=== PATIENT | female | born 1935 | race Caucasian/White ===

== ENCOUNTER → 2023-12-08 15:07 | Outpatient (REF) | payer OTHER, SELFPAY | LOC: MRI 3T 15:07 | PROVIDERS: ATTENDING PHYSICIAN Physician Assistant Surgical | DX: M47.816 Spondylosis without myelopathy or radiculopathy, lumbar region (principal); M47.817 Spondylosis without myelopathy or radiculopathy, lumbosacral region | CPT/HCPCS: 72148 ==

== ENCOUNTER → 2024-03-06 10:57 | Outpatient (REF) | payer OTHER, SELFPAY ==
--- NOTE | 2024-03-06 17:17 | EEG.RPT ---
Electroencephalogram Report
Recording
Date of EE03/06/24
Type of EEG: Routine
Length of EEG recordin minutes
Done with Video Recording: Yes
Patient Status: Outpatient
Recording Conditions: Awake and Drowsy
Hyperventilation Performed: No
Photic Stimulation Performed: Yes
Report
GREATER THAN 1 HOUR EEG REPORT
GREATER THAN 1 HOUR EEG INTERPRETATION:
Mildly abnormal EEG due to mild diffuse left temporal focal slowing of medium amplitude
CLINICAL CORRELATION:
This study was suggestive of mild breach artifact from the left temporal lobe in non-epileptiform form. No seizures were recorded.
Clinical correlation is advised.
METHODS:
A 21 channel digitized electroencephalogram (EEG) was performed at the bedside. The 10/20 international system of electrode placement was used with ECG and lateral/vertical eye movements recorded. Video was recorded. Persyst quantitative evaluation
system utilized.
QUALITY OF STUDY:
Good
ELECTROENCEPHALOGRAPHER IMPRESSION(S):
Background
Amplitude: Unremarkable
Anterior-Posterior Organization: Unremarkable
Maximum: Alpha
Asymmetry: None
Sleep
Drowsiness present
Photic Stimulation
Failed to activate the record
ECG
Normal sinus rhythm
Abnormal EEG Activity
Asymmetry with left temporal (T3) focal slowing of medium amplitude constantly
== END ==
LOC: EEG 10:57
PROVIDERS: ATTENDING PHYSICIAN Nurse Practitioner Adult Health; FAMILY PHYSICIAN Family Medicine
DX: G40.209 Localization-related (focal) (partial) symptomatic epilepsy and epileptic syndromes with complex partial seizures, not intractable, without status epilepticus (principal)
CPT/HCPCS: 95813

== ENCOUNTER 2024-05-14 01:48 | Inpatient (IN) | payer OTHER, SELFPAY ==
[2024-05-13 23:45] VITALS: BP 158/103
[2024-05-13 23:48] VITALS: BP 158/103
--- NOTE | 2024-05-13 23:50 | ED.GENMED ---
History of Present Illness
<Gautam Strauss Semaj, DO - Last Filed: 05/14/24 00:54>
General
Chief Complaint: Breathing Problem
Time Seen by Provider: 05/13/24 23:43
History of Present Illness
History of Present Illness:
HPI: The patient presents due to shortness of breath onset last week but acutely worsened over the past 3 to 4 hours. I spoke to EMS who indicates the patient had inspiratory and expiratory wheezing and had a room air sat of 85%. She has a history
of A-fib and was found to be in rapid A-fib with rates in the 130s to 150s prior to arrival. I reviewed the med list and she is not on anticoagulation. She states that she was placed on doxycycline 2 to 3 weeks ago for presumed lung infection.
EXAM:
GENERAL: Moderate respiratory distress on nonrebreather (reportedly was 85% on room air for EMS)
HEENT: Moist oral mucosa
CARDIOVASCULAR: No murmurs, tachycardic heart rate, irregular rhythm, No chest wall tenderness
PULMONARY: Moderate respiratory distress, breath sounds are decreased with wheeze
ABDOMEN: Soft with no peritoneal signs, no tenderness
NEUROLOGIC: Fair strength all extremities, no coordination deficits
PSYCHIATRIC: Appropriate mental status, normal insight and judgement
EXTREMITIES: Nontender, no edema, moves all extremities equally
SKIN: No rash, no lesions
TIME OF INITIAL ENCOUNTER: 11:45 PM
NUMBER AND COMPLEXITY OF PROBLEMS ADDRESSED AT THE ENCOUNTER
� Chronic conditions affecting care: High blood pressure, diabetes, former smoker
� Acute Exacerbation and/or Progression of Chronic Illness: This is an acute problem
� Differential Diagnosis includes: Reactive airway disease, viral syndrome, COPD, pneumonia, heart failure, dysrhythmia
AMOUNT AND/OR COMPLEXITY OF DATA TO BE REVIEWED AND ANALYZED
� I performed an independent evaluation of and my interpretation is:
EKG: A-fib 125, diffuse ST abnormality including ST depression in V4 V5 however this does not appear to be significantly changed in comparison to 09/28/2023
CT:
X-rays: Chest x-ray personally viewed, there may be some increased lung markings but not significant change from prior on 09/26/2023
Laboratory Studies: Hemoglobin slightly low but at baseline, white count normal at 10.2
Other:
� Review of other/old records: I reviewed records. The patient was admitted with acute metabolic encephalopathy with UTI 8 months ago. At that time she was also briefly hypoxic that was felt to be related to atelectasis. She
had an echo in 2021 that showed an EF.
� Clinical information was obtained by an independent historian: I spoke to EMS
� Prescriptions/Medications Considered but not given:
� Further testing considered but not performed:
RISK OF COMPLICATIONS AND/OR MORBIDITY OR MORTALITY OF PATIENT MANAGEMENT
� Social determinants of health affecting care: Resides at the [facility]
� Discussion with other providers: Dr. Recinos for admission
� Escalation of care including admission/observation vs risk of discharge considered: The patient was in moderate respiratory distress and was 85% on room air for EMS. She has been on a nonrebreather. She is in rapid A-fib.
She has somewhat of an ischemic looking EKG but not significantly changed from prior. Will place on heparin as she appears to be in rapid A-fib and is not currently anticoagulated and has ST depression on EKG. she was initially given a small fluid
bolus of 500 mL of saline as she was hypotensive upon arrival. However she later was found to have a BNP over 4400 and there does appear to be some increased vascular markings on today's chest x-ray compared to prior therefore she was then diuresed
with low-dose Lasix. I spoke to the daughter, Parvin Mendez, who indicates that we can call at any time. She tells me that she had an irregular heartbeat within the past week and she was to follow-up with a shopfitter, the
daughter was out of town and she has not seen a shopfitter yet. I asked the daughter about anticoagulation and she was under the impression that she should not be on anticoagulation while on Plavix.
Past History
<Gautam Cha, DO - Last Filed: 05/14/24 00:54>
Past History
ED Past Medical History: Cancer (breast, with radiation therapy), CVA (April 2021), HTN (labile), NIDDM, Seizures (Possible seizures, abnormal EEG), Psychiatric (major depression), Other (iron deficiency anemia, aortic stenosis, pulmonary
hypertension, seizure) and Other (hiatal hernia)
ED Past Surgical History: Appendectomy, Gynecological (hysterectomy) and Other (left-sided mastectomy 2017, right CEA)
Social History
Tobacco: Other (distant history)
Alcohol: None
Drug: None
Personal:
Living: with family
Employment: Retired
Family History
Family History: Other (reviewed and noncontributory)
Phy Exam
<Lawrence Castillo MD, Resident - Last Filed: 05/14/24 01:34>
Physical Exam
Physical Exam:
GEN: Patient in respiratory distress on nonrebreather mask (saturating at 85% on room air as reported by EMS)
HENT: NCAT, oral mucosa moist, no JVD, no cervical adenopathy.
Lungs: Bilateral inspiratory and expiratory wheezes
Cardiac: Tachycardic, irregular rhythm, S1, S2+, no peripheral edema. Radial pulses 2+ bilat
Abdomen: S, NT, ND, NABS, no masses or hepatosplenomegaly
Neuro: AO x 3, no focal deficits to BUE/BLE, normal sensation throughout
Skin: No rashes, petechiae. Normal color, no pallor or jaundice.
Psych: Calm, cooperative, proper hygiene
Scores
<Lawrence Castillo MD, Resident - Last Filed: 05/14/24 01:34>
Heart Failure Risk
Heart Failure Risk Score: Not Applicable
Course
<Gautam Cha, DO - Last Filed: 05/14/24 00:54>
Orders/Labs/Results
Orders:
Orders
05/13/24 23:44
Electrocardiogram (*1) Urgent
Reason for Study: Other
Other Reason for Exam: Respiratory Distress
Cardiac Monitoring- Treatment ONCE
EKG- Treatment ONCE
IV Insert/Care/Rem.- Treatment PRN
Ipratropium/Albuterol Sulfate [Duoneb] 3 ml INH R NOW ONE
MethylPREDNISolone PF [Solu-Medrol Pf] 125 mg IV NOW STA
O2 Therapy [RESP] Urgent
Titrate/Wean O2 to maintain O2 sat greater than (%): 93
Special Instructions: TO MAINTAIN CONTINUOUS O2 SATS >/= 93%
Pulse Ox/cont/shift [RESP] Urgent
Quantity: 1
Special Instructions: continuous pulse ox
05/13/24 23:45
Diltiazem 125 mg/125 ml Nss [Cardizem] 125 mg in 125 ml IV PER PROTOCOL
Initial dose in mg/hr, then titrate:: 5
Titrate to keep:: Heart rate 80-100 bpm
Titrate by mg/hr:: 5 mg/hr
Frequency of titrations (minutes):: 15
Maximum dose in mg/hr:: 15
05/13/24 23:49
Diltiazem HCl [Cardizem] 10 mg IV NOW STA
05/13/24 23:54
COVID-19 Antigen Urgent
Source: Nasal Swab
Complete Blood Count/With Diff Urgent
Comprehensive Metabolic Panel Urgent
Magnesium Urgent
NT-proBNP Urgent
Troponin I Urgent
05/14/24 00:00
CR Chest Portable - 1 View Urgent
Reason For Exam: respiratory distress
Reason Study Needs to be Portable: Patient Unstable
05/14/24 00:08
0.9% Sodium Chloride 500 ml [Nss] 500 ml IV BOLUS
05/14/24 00:20
Heparin 3,800 units IV NOW STA
05/14/24 00:[address] Non Medication Order As Directed
Physician Order: PTT 6 hours after initial start of Heparin infusion
05/14/24 00:27
PTT Urgent
Comment: Obtain baseline before beginning heparin infusion if not already collected
05/14/24 00:30
Heparin 66071 Units/250 ml 25,000 units in 250 ml IV PER PROTOCOL
Weight to be used for heparin protocol in kilograms (kg):: 62.8
Protocol:: Cardiac Tx/Acute Coronary
PTT Goal Range to be used:: PTT 73 to 111 seconds
Order type:: Initial
INITIAL Infusion Dose (UNITS/KG/hr) & then follow protocol:: 12 units/kg/hr
Infusion Dose in UNITS/hr & then follow protocol (UNITS/hr):: 750
INFUSION RATE in mL/hr & then follow protocol (mL/hr):: 7.5
PTT less than or equal to 64 seconds:: Increase rate by 200 units/hr (+ 2 mL/hr)
PTT 64.1 to 72.9 seconds:: Increase rate by 100 units/hr (+ 1 mL/hr)
PTT 73 to 111 seconds:: Target Range. No change in rate.
PTT 111.1 to 130.9 seconds:: Decrease rate by 100 units/hr (- 1 mL/hr)
PTT 131 to 199.9 seconds:: HOLD for 1 hr. Then decrease rate by 200 units/hr (- 2 mL/hr)
PTT greater than or equal to 200 seconds:: HOLD for 2 hrs & Notify Provider. Then decrease by 200 units/hr (-
2 mL/hr)
Lab follow-up:: Each change, PTT q6h until 2 consecutive are therapeutic. Then PTT
daily.
05/14/24 00:45
Furosemide [Lasix] 20 mg IV NOW STA
05/14/24 01:00
Flush (0.9% Sodium Chloride) [Flush (Nss)] See Dose Instructions IV PER PROTOCOL
05/14/24 01:26
Admit/Transfer Patient As Directed
Co-Sign Provider:
Level of Care: Inpatient admission
Assign to:: IMU- Intermediate Care
Physician / Group: htay
Diagnosis: acute hypoxic RI, acute CHF, vol overload, acute bronchitis
Reason for Hospitalization: acute hypoxic RI, acute CHF, vol overload, acute bronchitis
Expected length of stay greater than two midnights?: Yes
ELOS- Estimated Length of Stay in days: 3
I certify the patient meets the requirements for IP care: Yes
Abnormal Lab Results
05/13/24
23:54
RBC 3.82 L 10^6/uL
(4.20-5.40)
Hgb 11.5 L g/dL
(12.0-16.0)
Hct 33.7 L %
(37.0-47.0)
RDW 15.2 H %
(11.5-14.5)
MPV 10.5 H fL
(7.4-10.4)
Sodium 132 L mmol/L
(135-145)
Glucose 210 H mg/dl
(70-99)
AST 37 H U/L
(14-36)
Alkaline Phosphatase 134 H U/L
(38-126)
05/13/24 23:54
05/13/24 23:54
Vital Signs
Initial and Last Documented VS:
Initial Vital Signs
Pulse Resp BP Pulse Ox
138 19 158/103 99
05/13/24 23:45 05/13/24 23:45 05/13/24 23:45 05/13/24 23:45
Last Documented Vital Signs
Temp Pulse Resp BP Pulse Ox
97.6 F 140 23 123/81 96
05/14/24 00:06 05/14/24 01:24 05/14/24 01:00 05/14/24 01:24 05/14/24 01:00
<Lawrence Maynor Teresa Castillo MD, Resident - Last Filed: 05/14/24 01:34>
Orders/Labs/Results
Orders:
Orders
05/13/24 23:44
Electrocardiogram (*1) Urgent
Reason for Study: Other
Other Reason for Exam: Respiratory Distress
Cardiac Monitoring- Treatment ONCE
EKG- Treatment ONCE
IV Insert/Care/Rem.- Treatment PRN
Ipratropium/Albuterol Sulfate [Duoneb] 3 ml INH R NOW ONE
MethylPREDNISolone PF [Solu-Medrol Pf] 125 mg IV NOW STA
O2 Therapy [RESP] Urgent
Titrate/Wean O2 to maintain O2 sat greater than (%): 93
Special Instructions: TO MAINTAIN CONTINUOUS O2 SATS >/= 93%
Pulse Ox/cont/shift [RESP] Urgent
Quantity: 1
Special Instructions: continuous pulse ox
05/13/24 23:45
Diltiazem 125 mg/125 ml Nss [Cardizem] 125 mg in 125 ml IV PER PROTOCOL
Initial dose in mg/hr, then titrate:: 5
Titrate to keep:: Heart rate 80-100 bpm
Titrate by mg/hr:: 5 mg/hr
Frequency of titrations (minutes):: 15
Maximum dose in mg/hr:: 15
05/13/24 23:49
Diltiazem HCl [Cardizem] 10 mg IV NOW STA
05/13/24 23:54
COVID-19 Antigen Urgent
Source: Nasal Swab
Complete Blood Count/With Diff Urgent
Comprehensive Metabolic Panel Urgent
Magnesium Urgent
NT-proBNP Urgent
Troponin I Urgent
05/14/24 00:00
CR Chest Portable - 1 View Urgent
Reason For Exam: respiratory distress
Reason Study Needs to be Portable: Patient Unstable
05/14/24 00:08
0.9% Sodium Chloride 500 ml [Nss] 500 ml IV BOLUS
05/14/24 00:20
Heparin 3,800 units IV NOW STA
05/14/24 00:[address] Non Medication Order As Directed
Physician Order: PTT 6 hours after initial start of Heparin infusion
05/14/24 00:27
PTT Urgent
Comment: Obtain baseline before beginning heparin infusion if not already collected
05/14/24 00:30
Heparin 31049 Units/250 ml 25,000 units in 250 ml IV PER PROTOCOL
Weight to be used for heparin protocol in kilograms (kg):: 62.8
Protocol:: Cardiac Tx/Acute Coronary
PTT Goal Range to be used:: PTT 73 to 111 seconds
Order type:: Initial
INITIAL Infusion Dose (UNITS/KG/hr) & then follow protocol:: 12 units/kg/hr
Infusion Dose in UNITS/hr & then follow protocol (UNITS/hr):: 750
INFUSION RATE in mL/hr & then follow protocol (mL/hr):: 7.5
PTT less than or equal to 64 seconds:: Increase rate by 200 units/hr (+ 2 mL/hr)
PTT 64.1 to 72.9 seconds:: Increase rate by 100 units/hr (+ 1 mL/hr)
PTT 73 to 111 seconds:: Target Range. No change in rate.
PTT 111.1 to 130.9 seconds:: Decrease rate by 100 units/hr (- 1 mL/hr)
PTT 131 to 199.9 seconds:: HOLD for 1 hr. Then decrease rate by 200 units/hr (- 2 mL/hr)
PTT greater than or equal to 200 seconds:: HOLD for 2 hrs & Notify Provider. Then decrease by 200 units/hr (-
2 mL/hr)
Lab follow-up:: Each change, PTT q6h until 2 consecutive are therapeutic. Then PTT
daily.
05/14/24 00:45
Furosemide [Lasix] 20 mg IV NOW STA
05/14/24 01:00
Flush (0.9% Sodium Chloride) [Flush (Nss)] See Dose Instructions IV PER PROTOCOL
05/14/24 01:26
Admit/Transfer Patient As Directed
Co-Sign Provider:
Level of Care: Inpatient admission
Assign to:: IMU- Intermediate Care
Physician / Group: htay
Diagnosis: acute hypoxic RI, acute CHF, vol overload, acute bronchitis
Reason for Hospitalization: acute hypoxic RI, acute CHF, vol overload, acute bronchitis
Expected length of stay greater than two midnights?: Yes
ELOS- Estimated Length of Stay in days: 3
I certify the patient meets the requirements for IP care: Yes
Abnormal Lab Results
05/13/24
23:54
RBC 3.82 L 10^6/uL
(4.20-5.40)
Hgb 11.5 L g/dL
(12.0-16.0)
Hct 33.7 L %
(37.0-47.0)
RDW 15.2 H %
(11.5-14.5)
MPV 10.5 H fL
(7.4-10.4)
Sodium 132 L mmol/L
(135-145)
Glucose 210 H mg/dl
(70-99)
AST 37 H U/L
(14-36)
Alkaline Phosphatase 134 H U/L
(38-126)
05/13/24 23:54
05/13/24 23:54
Vital Signs
Initial and Last Documented VS:
Initial Vital Signs
Pulse Resp BP Pulse Ox
138 19 158/103 99
05/13/24 23:45 05/13/24 23:45 05/13/24 23:45 05/13/24 23:45
Last Documented Vital Signs
Temp Pulse Resp BP Pulse Ox
97.6 F 140 23 123/81 96
05/14/24 00:06 05/14/24 01:24 05/14/24 01:00 05/14/24 01:24 05/14/24 01:00
<Lawrence Castillo MD, Resident - Last Filed: 05/14/24 01:34>
MDM/Problems Addressed
Differential Diagnosis Includes:
Bronchitis versus acute exacerbation of COPD versus pneumonia , A-fib versus acute heart failure
MDM/Problems Addressed:
Patient started on IV fluids
Patient is started on DuoNebs, Solu-Medrol.
EKG showed evidence of A-fib, heart rate of 125
Started her on diltiazem, heparin.
Chest x-ray-no evidence of pneumonia.
CBC, CMP�hemoglobin at 11.5, mildly hyponatremic at 132, BG�210
Prior echo in 2021 showed an ejection fraction of 60 to 65%
proBNP�4430
Stat Lasix 20 mg.
<Gautam Cha, DO - Last Filed: 05/14/24 00:54>
*Critical Care Note
Total Time (30-74mins, 75-104mins- exclusive of procedures): 45min
comment:
The patient was hypoxic for EMS and was in moderate to severe respiratory distress upon arrival. He was hypotensive upon arrival and was in rapid atrial fibrillation. She was given a small fluid bolus initially and was also given diltiazem bolus
and drip. She was placed on heparin. Her vital signs were closely monitored.
ED Attending Note
<Gautam Cha DO - Last Filed: 05/14/24 00:54>
-
Portions of this chart may have been created with voice recognition software.� Occasional wrong word or��sound alike� substitutions may have occurred due to the inherent limitations of voice recognition software.
Discharge Plan
Departure
Patient Disposition: Admit
Date of Disposition: 05/14/24
Time of Disposition: 00:46
Presentation/result/management discussed w/ accepting MD/DO: Hospitalist
Discharge Problem:
Hypoxia
Prescriptions:
No Action
acetaminophen 325 MG tablet
650 mg PO Q4HPRN PRN (Reason: DOUGLAS, mild pain, or temp >100.4F) 0RF
sennosides [senna] 8.6 MG tablet
8.6 mg PO BID PRN (Reason: constipation)
Patient Comments:
Not working very well
pantoprazole 40 MG tablet,delayed release (DR/EC)
20 mg PO DAILY
magnesium oxide 500 MG tablet
500 mg PO BID
coenzyme Q10 [Co Q-10] 10 MG capsule
10 mg PO DAILY
cranberry 400 MG capsule
400 mg PO DAILY
PreserVision AREDS 1 CAP capsule
1 cap PO BID
docusate sodium 100 MG capsule
100 mg PO BIDPRN PRN (Reason: No BM > 24 hours) 0RF
turmeric 400 mg Capsule
400 mg PO DAILY
metformin 750 mg tablet extended release 24 hr
750 mg PO BID
ascorbic acid (vitamin C) [Vitamin C] 500 MG tablet
500 mg PO DAILY
ropinirole 0.5 mg tablet
0.5 mg PO QHS
levetiracetam 500 mg tablet
500 mg PO QPM
amlodipine 5 mg Tablet
5 mg PO DAILY
alprazolam 0.5 mg tablet
0.5 mg PO BIDPRN PRN (Reason: Anxiety)
melatonin 10 mg Tablet
10 mg PO HS
levetiracetam [Keppra] 500 mg tablet
250 mg PO Daily
Rx Instructions:
1/2 tab (250mg) in the Am and 1 tab (500mg) nightly
clopidogrel 75 MG tablet
75 mg PO DAILY
cefdinir 300 mg capsule
300 mg PO Q12H 5 Days Qty: 10 0RF
Referrals:
Nuzhat Zhu DO [Family Provider] -
Interventions
Interventions:
*Risk Screen - Suicide Last Done: 05/13/24 23:45
*General Assessment Last Done: 05/13/24 23:45
*Neglect/Abuse Screening Last Done: 05/13/24 23:45
ED- Fall Risk Assessment Last Done: 05/14/24 00:07
*ED COVID-19 Vaccine History Last Done: 05/13/24 23:45
ED- Cardiac Assessment Last Done: 05/14/24 00:07
ED- Pulmonary Assessment Last Done: 05/14/24 00:07
Discharge Date and Time
Print Language: KOREAN
[2024-05-14] VITALS (16 sets, daily range): BP systolic 95–140; BP diastolic 52–81; PULSE 81; O2SAT 95; BMI 21.1; BMI 20.5; BMI 20.3
[2024-05-14 00:03] LABS: % Basophils 0.6 % (0-2); % Eosinophils 2.7 % (0-6); % Immature Granulocytes 0.4 % (0-0.5); % Lymphocytes 30.2 % (20.5-51.1); % Monocytes 6.1 % (1.7-9.3); Absolute Basophils 0.1 10^3/uL (0-0.2); Absolute Eosinophils 0.3 10^3/uL (0-0.7); Absolute Lymphocytes 3.1 10^3/uL (1.2-3.4); Absolute Monocytes 0.6 10^3/uL (0.1-0.6); Absolute Neutrophils 6.1 10^3/uL (1.4-6.5); Hematocrit 33.7 % (37.0-47.0); Hemoglobin 11.5 g/dL (12.0-16.0); Mean Corp Hgb Conc. 34.1 g/dL (33.0-37.0); Mean Corpuscular Hgb 30.1 pg (27.0-31.0); Mean Corpuscular Volume 88.2 fL (81.0-99.0); Mean Platelet Volume 10.5 fL (7.4-10.4); Nucleated Red Blood Cells % 0 %; Platelet Count 245 10^3/uL (130-400); Red Blood Cell Count 3.82 10^6/uL (4.20-5.40); Red Cell Dist. Width 15.2 % (11.5-14.5); White Blood Cell Count 10.2 10^3/uL (4.8-10.8)
[2024-05-14 00:16] LABS: COVID-19 Antigen Negative (Negative)
[2024-05-14 00:17] LABS: ALT (SGPT) 12 U/L (0-35); AST (SGOT) 37 U/L (14-36); Albumin 4.1 g/dl (3.5-5.0); Alkaline Phosphatase 134 U/L (38-126); Blood Urea Nitrogen 15 mg/dl (7-17); Calcium 9.2 mg/dl (8.4-10.2); Carbon Dioxide 22 mmol/L (22-30); Chloride 100 mmol/L (98-107); Estimated Creatinine Clearance 65 ml/min; Glucose 210 mg/dl (70-99); Magnesium 1.6 mg/dl (1.6-2.3); Potassium 4.4 mmol/L (3.5-5.1); Sodium 132 mmol/L (135-145); Total Bilirubin 0.5 mg/dl (0.2-1.3); Total Protein 6.8 g/dl (6.3-8.2); eGFR > 60.00
[2024-05-14] MEDS: DUONEB 3 ML INH ×5 (00:18→19:57)
[2024-05-14] MEDS: SOLU-MEDROL PF 125 MG IV (00:18)
[2024-05-14] MEDS: CARDIZEM 10 MG IV (00:19)
[2024-05-14] MEDS: NSS 500 IV (00:20)
[2024-05-14 00:26] LABS: NT-proBNP 4430 pg/ml; Troponin I < 0.012 ng/ml
[2024-05-14] MEDS: HEPARIN 3800 UNITS IV (00:37)
[2024-05-14 00:48] LABS: APTT 28.3 Sec (23.4-35.0)
--- NOTE | 2024-05-14 01:20 | HPS.HSE ---
Family Physician
-
Family Physician: Nuzhat Zhu
Chief Complaint
-
SoB and hypoxia, fast AF
History of Present Illness
88F Res of [facility] , [facility] , HX chr hypotension on PRN Midodrine, mild , HX XRT for breast CA, HX Sz diosrderfor evaulation of SoB and Hypoxia. Per EMS POx as low as 85%.
SoB
- acute onset since last week
- EMS noted both insp/ exp wheeze
- associated Hypoxia as low as 85 5 before NRM placement
- on PO Doxy for lung infection
EMS also noted fast AF with VR 130s- 150s
- not on AC
Medical History
Past Medical History
Past Medical History: Reports Other
Additional Past Medical History:
essential hypertension, irv-juaexox-xonidcews diabetes mellitus, history of breast cancers with radiation therapy, hiatal hernia, right carotid stenosis post stent placement, GERD, history of seizures, hyperlipidemia, history of CVA, neuropathy,
restless leg syndrome, hysterectomy
Past Surgical History: Reports Other
Social History
Tobacco: Non-smoker
Alcohol: None
Drug: None
Living: With Family
Family History
Family History: Not pertinent
Allergies / Home Medications
Allergies reflects when Allergies were last updated in [facility].
Home Medications with original date entered in [facility]
Allergy/Medication List:
Allergies
Allergy/AdvReac Type Severity Reaction Status Date / Time
codeine Allergy Nausea Verified 09/26/23 05:26
nitrofurantoin Allergy Hives Verified 09/26/23 05:26
[From Macrobid]
Home Medications
acetaminophen 325 mg tablet 650 mg PO Q4HPRN PRN DOUGLAS, mild pain, or temp >100.4F 07/08/21
clopidogrel 75 mg tablet 75 mg PO DAILY 07/08/21
alprazolam 0.25 mg tablet 0.25 mg PO HSPRN PRN sleep/leg spasm 02/09/22
cholecalciferol (vitamin D3) 25 mcg (1,000 unit) tablet 2,000 units PO DAILY Supplement 02/09/22
coenzyme Q10 10 mg capsule (Co Q-10) 10 mg PO DAILY Supplement 02/09/22
cranberry 400 mg capsule 400 mg PO DAILY Supplement 02/09/22
magnesium oxide 500 mg tablet 250 mg PO BID Supplement 02/09/22
melatonin 5 mg tablet 10 mg PO HS Sleep 02/09/22
pantoprazole 40 mg tablet,delayed release 20 mg PO DAILY Gastrointestinal issue 02/09/22
sennosides 8.6 mg tablet (senna) 8.6 mg PO BID PRN constipation 02/09/22
vitamins A,C,J-kjpf-brzcrt 4,296 mcg-226 mg-90 mg capsule (PreserVision AREDS) 1 cap PO BID Supplement 02/09/22
docusate sodium 100 mg capsule 100 mg PO BIDPRN PRN No BM > 24 hours 02/10/22
turmeric 400 mg capsule 400 mg PO TID Herbal supplement 04/16/22
levetiracetam 500 mg tablet (Keppra) 500 mg PO BID Seizures 30 days #60 tabs 04/17/22
midodrine 5 mg tablet 5 mg PO DAILY PRN low bp in the morning #0 tabs 04/17/22
metformin 750 mg tablet,extended release 24 hr 750 mg PO BID Diabetes 04/03/23
ascorbic acid (vitamin C) 500 mg tablet (Vitamin C) 500 mg PO DAILY Supplement 04/04/23
amoxicillin 875 mg-potassium clavulanate 125 mg tablet 1 tab PO Q12 #10 tabs 04/05/23
ropinirole 0.5 mg tablet 0.5 mg PO DAILY Mental Health/Anxiety 09/26/23
sulfamethoxazole 800 mg-trimethoprim 160 mg tablet 1 tab 09/26/23
Review of Systems
-
Constitutional: Reports No Symptoms
EENT: Reports No Symptoms
Respiratory: Reports See HPI and Trouble Breathing
Cardiac: Reports No Symptoms
Abdomen/GI: Reports No Symptoms
: Reports No Symptoms
Musculoskeletal: Reports No Symptoms
Skin: Reports No Symptoms
Neurological: Reports No Symptoms
Endocrine: Reports No Symptoms
Hematologic/Lymphatic: Reports No Symptoms
Psych: Reports No Symptoms
Physical Exam
Vital Signs
Vital Signs
Temp Pulse Resp BP Pulse Ox
97.6 F 124 23 123/81 96
05/14/24 00:06 05/14/24 01:00 05/14/24 01:00 05/14/24 01:00 05/14/24 01:00
Physical Exam
General: Conversant; No Well Nourished (thin , BMI 21)
HEENT: Other (hard of hearing witoum hearing AID )
Respiratory: Wheezes (both lungs ) and Rhonchi
Cardiac: S1/S2, Irregular Rhythm, Tachycardia and Murmur (lous SM at LUSB )
GI: Soft, Non Tender, Non Distended and Normal Bowel Sounds
Musculoskeletal: No Edema
Skin: Warm and Dry
Neuro: AO x 3
Psych: Anxious
Laboratory Results
-
05/13/24 23:54
05/13/24 23:54
Laboratory Results
APTT 28.3 Sec (23.4-35.0) 05/14/24 00:27
Total Bilirubin 0.5 mg/dl (0.2-1.3) 05/13/24 23:54
AST 37 U/L (14-36) H 05/13/24 23:54
ALT 12 U/L (0-35) 05/13/24 23:54
Alkaline Phosphatase 134 U/L (38-126) H 05/13/24 23:54
Troponin I < 0.012 ng/ml 05/13/24 23:54
Data Reviewed
-
Diagnostic Radiology: Report Reviewed by me
Medical Tests (Nuc Med, Echo, EKG etc): Report Reviewed by me
Lab Data: Labs Reviewed by me
Old Records: Reviewed
Impression/Plan
-
Reviewed VS: HR 120 - 140 Hypotensive 102/60 POx 99 on NRM
Wt 62.9 kg ( 05/14/24) - was 59.6 kg ( 09/26/23) gained 3.3 kg over 8 months ?
Data
Hgb 11.5
Na 132
BG 210
AST 37
AKP 134
NEG TPNI
pro BNP 4430
NEG Covid
My review on CXR; mild CHF ?
04/23/22 TTE
LVEF 60-65%
Mild aortic stenosis, peak/mean gradient 28/15 mmHg, KAYLEIGH 1.5 cm2
Normal right heart with mild pul hypertension, 36 mmHg systolic
Small PFO
Last hospitalist admission: 09/26/24 - 09/28/23 DX: TME, UTI
ASSESSMENT & PLAN
Pending Rx reconciliation
Acute hypoxic RI requiring NRM O2 support
DDX: acute asthmatic bronchitis , Prox fast AF or multifactorial plus or minus acute HF
- Gained 3.3 kg over last 8 months ?? : clinically she does not look volume overload
- elevated proBNP
- repeat wt on the floor
- s/p IV Lasix 20 and cont IV Lasix 20 daily till seen by Card in AM
- cont IV Decadron
- cont. Nebs qid and PRN
- cont. O2 to keep POx > 94
- Pul consult
Fast Prx AF
- cont Diltiazem gtt
- agree with Heparin gtt
- cont Midodrine PRN
- DCA card consult
Known Mild with peak/mean gradient 28/15 mmHg, KAYLEIGH 1.5 cm2
HX small PFO
HX mild PHT
last ECHO 04/23/22
- ECHO in AM
T2DM
- held Metformin due to acute HF
- add ISS low
HX CVA
HX seizure disorder
Neuropathy
- on Levitra on list : Pending Rx reconciliation
Known HX - Pending Rx reconciliation
HX chronic marginal hyponatremia
Chr midodrine PRN dependent intermittent hypotension: held Amlodipine
HX essential HTN
HX breast cancers with radiation therapy/left mastectomy
HX right carotid stenosis post stent placement
Hyperlipidemia
restless leg syndrome
DVT Px: Heparin gtt
Code:
IMU
[2024-05-14] MEDS: LASIX 20 MG IV ×2 (01:24→08:52)
[2024-05-14] MEDS: CARDIZEM 125 IV ×2 (01:27→09:01)
[2024-05-14] MEDS: HEPARIN 25000 UNITS/250 ML IV (01:44)
--- NOTE | 2024-05-14 03:31 | PTCARENOTE ---
Pt received to IMU from ED. AAOx3. Drowsy. Very weak. [place]. Denies pain or discomfort. VSS. Afebrile. Afib/SR/ST/PVC on CM. POX 94% on 2L NC. Coarse/wheeze anteriorly. Diminished throughout. [place]. Heparin gtt infusing at 7.5mls/hr and Cardizem gtt
infusing at 15ml/hr both initiated in ED. Next PTT at 0745. No CHF packet on floor to give pt - will pass on to dayshift RN. Esteves placed for comfort. Last BM 2 days ago. Pt states she has been at [facility] temporarily till daughter
Parvin comes back from vacation - daughter aware pt in hospital and we are to call her if there are any issues. Skin intact. Rest of assessment as documented. Pt oriented to room and surroundings. Call bartlett within reach. Will continue to monitor.
[2024-05-14 05:17] LABS: AST (SGOT) 38 U/L (14-36); Albumin 4.1 g/dl (3.5-5.0); Alkaline Phosphatase 129 U/L (38-126); Blood Urea Nitrogen 15 mg/dl (7-17); Calcium 8.9 mg/dl (8.4-10.2); Carbon Dioxide 18 mmol/L (22-30); Chloride 98 mmol/L (98-107); Estimated Creatinine Clearance 63 ml/min; Glucose 282 mg/dl (70-99); Sodium 131 mmol/L (135-145); Total Bilirubin 0.5 mg/dl (0.2-1.3); Total Protein 6.5 g/dl (6.3-8.2); eGFR > 60.00
[2024-05-14 05:27] LABS: ALT (SGPT) < 30 U/L (0-35)
[2024-05-14 05:39] LABS: TSH Reflex To Free T4 1.17 uIU/ml (0.47-4.68)
[2024-05-14] MEDS: TYLENOL 650 MG PO (05:46)
[2024-05-14 08:04] LABS: Glucose - Point of Care 266 mg/dl (70-99)
[2024-05-14] MEDS: DECADRON 4 MG IV (08:51)
[2024-05-14] MEDS: NOVOLOG FLEXPEN-LOW RESISTANCE 3 UNITS SC (08:53)
[2024-05-14 09:05] LABS: APTT 60.4 Sec (23.4-35.0)
[2024-05-14] MEDS: NOVOLIN N vial 0.1 UNITS SC (09:53)
--- NOTE | 2024-05-14 09:59 | CON.PUL ---
Consultation
Consultation Request
Date/Time Consultation Requested: 05/14/24
Date/Time Consultation Performed: 05/14/24
Performing Provider: Linda
Reason for Consultation: SOB
Medical History
-
History of Present Illness:
Patient is an 88-year-old female with previous history of hypertension, diabetes, history of CVA, history of breast cancer, GERD presenting from [facility] via EMS for evaluation of shortness of breath and hypoxemia. O2 con was reportedly
85% on room air. She was noted to have inspiratory and expiratory wheezing on exam and was in A-fib with RVR 130s to 150s as well. Admitted to 05/14/24. No prior known history of lung disease, nonsmoker. CXR showing increased vascular markings
suggesting heart failure superimposed on possible underlying chronic lung disease.
Past Medical History
Past Medical History: Other (see list below)
Social History
Tobacco: Non-smoker
Alcohol: None
Drug: None
Family History
Family History: Reviewed & Not Pertinent
Allergies / Home Medications
Allergies
Allergy/AdvReac Type Severity Reaction Status Date / Time
codeine Allergy Nausea Verified 05/14/24 00:42
morphine Allergy Unknown Verified 05/14/24 00:42
nitrofurantoin Allergy Hives Verified 05/14/24 00:42
[From Macrobid]
Home Medications
�Medication �Instructions �Recorded �Confirmed �Last Taken �Type
acetaminophen 325 mg tablet 650 mg (2 x 325 mg) PO Q4HPRN PRN 07/08/21 09/26/23 04/15/22 Rx
DOUGLAS, mild pain, or temp >100.4F
coenzyme Q10 10 mg capsule (Co 10 mg PO DAILY Supplement 02/09/22 09/26/23 Unknown History
Q-10)
cranberry 400 mg capsule 400 mg PO DAILY Supplement 02/09/22 09/26/23 Unknown History
magnesium oxide 500 mg PO BID Supplement 02/09/22 09/26/23 Unknown History
pantoprazole 40 mg tablet,delayed 20 mg PO DAILY Gastrointestinal 02/09/22 09/26/23 04/16/22 History
release issue
sennosides 8.6 mg tablet (senna) 8.6 mg PO BID PRN constipation 02/09/22 09/26/23 Unknown History
vitamins A,C,P-uamb-fbjtep 4,296 1 cap PO BID Supplement 02/09/22 09/26/23 Unknown History
mcg-226 mg-90 mg capsule
(PreserVision AREDS)
docusate sodium 100 mg capsule 100 mg PO BIDPRN PRN No BM > 24 02/10/22 09/26/23 Unknown Rx
hours
turmeric 400 mg capsule 400 mg PO DAILY Herbal supplement 04/16/22 09/26/23 Unknown History
metformin 750 mg tablet,extended 750 mg PO BID Diabetes 04/03/23 09/26/23 Unknown History
release 24 hr
ascorbic acid (vitamin C) 500 mg 500 mg PO DAILY Supplement 04/04/23 09/26/23 Unknown History
tablet (Vitamin C)
alprazolam 0.5 mg tablet 0.5 mg PO BIDPRN PRN Anxiety 09/26/23 09/26/23 Unknown History
amlodipine 5 mg tablet 5 mg PO DAILY Blood Pressure 09/26/23 09/26/23 09/25/23 History
clopidogrel 75 mg tablet 75 mg PO DAILY Blood Clot 09/26/23 09/26/23 Unknown History
Prevention/Tx
levetiracetam 500 mg tablet 500 mg PO QPM Seizures 09/26/23 09/26/23 09/25/23 History
levetiracetam 500 mg tablet 250 mg PO Daily Seizures 09/26/23 09/26/23 09/25/23 History
(Keppra)
melatonin 10 mg tablet 10 mg PO HS Sleep 09/26/23 09/26/23 09/25/23 History
ropinirole 0.5 mg tablet 0.5 mg PO QHS Restless legs 09/26/23 09/26/23 Unknown History
cefdinir 300 mg capsule 300 mg PO Q12H 5 days #10 caps 09/28/23 Unknown Rx
Review of Systems
-
History Source: Patient
All other systems: Negative unless noted
Vitals / Labs / Diagnostic Testing
Vital Signs
Temp Pulse Resp BP Pulse Ox
97.6 F 92 19 140/67 95
05/14/24 07:15 05/14/24 08:00 05/14/24 08:00 05/14/24 08:00 05/14/24 08:00
Lab Data
05/13/24 23:54
05/14/24 04:32
Laboratory Results
05/14/24 05/14/24
00:27 08:46
APTT 28.3 60.4 H
Diagnostic Testing:
Physical Exam
-
HEENT: Normocephalic, Anicteric and Moist Mucous Membranes
Cardiovascular: S1/S2 and Regular Rhythm
Respiratory: Rales and Non-Labored Respirations
GI: Soft, Non Distended and Non Tender
Neurology: Awake, Alert, Oriented, AO x 3 and No Motor Deficits
Skin: Warm, Dry and Good Color
General: Comfortable and Other (NAD)
Assessment
-
Patient is an 88-year-old female with previous history of hypertension, diabetes, history of CVA, history of breast cancer, GERD presenting from [facility] via EMS for evaluation of shortness of breath and hypoxemia. O2 con was reportedly
85% on room air. She was noted to have inspiratory and expiratory wheezing on exam and was in A-fib with RVR 130s to 150s as well. Admitted to 05/14/24. CXR showing increased vascular markings suggesting heart failure superimposed on possible
underlying chronic lung disease. We are asked for eval.
Acute hypoxic respiratory failure, new onset
Acute CHF exacerbation
Afib with RVR
Wheezing/SOB
Possible underlying chronic ILD
Hyperglycemia
Hyponatremia
Conditions present prior to admission
HTN
NIDDM
Breast Ca with Radiation Therapy s/p Left Mastectomy
GERD/Hiatal Hernia
Carotid stenosis, right s/p stent
History of seizures
Hypercholesterolemia
History of stroke 2020
RLS
UTIs
Hysterectomy
History of bowel resection
Back surgery
Iron Deficiency
Congenital malformation of esophagus
Postmenopausal atrophic vaginitis
Gait difficulty
Dysphagia
Former smoker
Plan
Hypoxemia noted on arrival, O2 con 85%
Now on 5L NC, satting 97%--wean as tolerated
No known history of home O2 use
Home O2 evaluation eventually
Prior history of lung disease is not noted --
No prior known history of lung disease, nonsmoker. Trivial use socially in her youth for a total of 5 years
COPD history in her father who was a smoker
Denies exposure history
Suspect patient has CHF superimposed on possible background of chronic lung disease
CXR/CT obtained indicating increased vascular markings over chronic changes
Other imaging reviewed--no prior CT chest to compare, but other CXRs showing possible chronic changes
Would obtain dedicated chest CT when improved from her CHF treatment for clearer picture
She is placed on IV steroids, which I think can be stopped
Not wheezing, has crackles on exam
Prior ECHO in 2021 results are reviewed indicating small LV with moderate LVH, normal function, mild
Repeat study
Cards eval
Placed on IV diuresis
ProBNP elevated on admission
New onset Afib management as well
Will need outpatient pulmonary evaluation in our office for PFTs and 6MWT
Reviewed with patient
We will follow
Diagnostic Data
Chest X-Ray: 05/14/24- Suspect diffuse interstitial pneumonitis and component of pulmonary vascular congestion. Cannot rule out superimposed left basilar pneumonia and/or underlying chronic interstitial changes.
09/26/23- No acute disease of the chest. Large hiatal hernia. Enlarged.
CT Scan:
Echo: 04/23/22- 1. Small left ventricle with moderate left ventricular hypertrophy and preserved systolic function, EF 60-65%
2. Thickened mitral leaflets, mitral annular calcification, trace mitral regurgitation, and left atrial dilatation
3. Mild aortic stenosis, peak/mean gradient 28/15 mmHg, aortic valve area 1.5 cm2
4. Normal right heart with mild pulm hypertension, 36 mmHg systolic
5. Small patent foramen ovale
PFT's:
Reports and relevant images were personally reviewed.
Total time spent on this consultation __75__ includes review of history, physical exam, medications, laboratory data, personal review of imaging, extensive review of outpatient records, discussion with care team and respiratory therapy.
--- NOTE | 2024-05-14 10:20 | CM ---
Patient seen bedside.
IA completed.
Patient came to hospital via EMS from the [facility].
Spoke with Ravi from the [facility] he stated she is [facility], gives herself medications, ambulates and can dress herself with stand by assist for shower. However they would like report and fax on d/c.
Per patient she does not use assistive devices.
She is a the [facility], her daughter is away.
The plan is to return to the [facility] until 05/29/24, then back home with daughter.
PCP: Dr Zhu
Pharmacy: [facility]
Plan[facility].
Family may be able to transport. [facility] does not transport.
--- NOTE | 2024-05-14 10:27 | CON.CAR ---
Consultation
Consultation Request
Date/Time Consultation Requested: May 14, 2024
Date/Time Consultation Performed: May 14, 2024
Requesting Provider: Hospitalist
Performing Provider: Dr. Andreas Colón
Reason for Consultation: Newly diagnosed atrial fibrillation with rapid ventricular rates, symptomat
Medical History
-
Chief Complaint: Shortness of breath
History of Present Illness:
Primary care physician: Dr. Danyelle Gold
Primary obstetrical tech: Dr. Deana Marie
[age]-year-old woman living at [facility] who presented to the emergency department with acute worsening of baseline shortness of breath over the preceding 3 to 4 hours. Emergency services noted desaturation of 85%. Acutely she is found to
be in atrial fibrillation with rapid ventricular rate of 130s to 150s. Atrial fibrillation appears to be a newly documented diagnosis. Additional medical history is that she was placed on doxycycline approximately 2 weeks ago for a presumed
pulmonary infection.
On presentation she is found to be hyponatremic with sodium of 132, BUN and creatinine 15 and 0.6. proBNP is elevated at 4430 and troponin I is undetectable.
She was administered 20 mg of Lasix intravenously in the emergency department.
Past medical history includes
History of multiple ischemic strokes which have been felt likely to represent small vessel disease and atherosclerosis. 3 weeks of cardiac monitoring May 2021 failed to demonstrate atrial fibrillation
Autonomic dysfunction/hypotension/orthostasis treated with midodrine as needed
Patient has not been compliant with abdominal binder, compressions for known orthostatic hypotension and has not taken midodrine consistently due to hypertension
Type 2 diabetes with diabetic neuropathy
History of seizure disorder
History of mild aortic stenosis
History of breast cancer having undergone XRT in the past
Recent cardiovascular testing:
-Echocardiogram April 15, 2022 finds small left ventricle with moderate left ventricular hypertrophy and ejection fraction of 60 to 65%. There is mild aortic stenosis with peak and mean gradients of 28 and 15 mmHg and calculated aortic valve area
of 1.5 cm�.
Social History
Tobacco: Non-Smoker
Alcohol: None
Drug: None
Personal:
Living: Assisted Living ([facility])
Employment: Retired
Family History
Family History: Reviewed & Not Pertinent
Allergies / Home Medications
Allergy/AdvReac Type Severity Reaction Status Date / Time
codeine Allergy Nausea Verified 05/14/24 00:42
morphine Allergy Unknown Verified 05/14/24 00:42
nitrofurantoin Allergy Hives Verified 05/14/24 00:42
[From Macrobid]
�Medication �Instructions �Recorded �Confirmed �Type
acetaminophen 325 mg tablet 650 mg (2 x 325 mg) PO Q4HPRN PRN 07/08/21 09/26/23 Rx
DOUGLAS, mild pain, or temp >100.4F
coenzyme Q10 10 mg capsule (Co 10 mg PO DAILY Supplement 02/09/22 09/26/23 History
Q-10)
cranberry 400 mg capsule 400 mg PO DAILY Supplement 02/09/22 09/26/23 History
magnesium oxide 500 mg PO BID Supplement 02/09/22 09/26/23 History
pantoprazole 40 mg tablet,delayed 20 mg PO DAILY Gastrointestinal 02/09/22 09/26/23 History
release issue
sennosides 8.6 mg tablet (senna) 8.6 mg PO BID PRN constipation 02/09/22 09/26/23 History
vitamins A,C,V-lchf-dyimqn 4,296 1 cap PO BID Supplement 02/09/22 09/26/23 History
mcg-226 mg-90 mg capsule
(PreserVision AREDS)
docusate sodium 100 mg capsule 100 mg PO BIDPRN PRN No BM > 24 02/10/22 09/26/23 Rx
hours
turmeric 400 mg capsule 400 mg PO DAILY Herbal supplement 04/16/22 09/26/23 History
metformin 750 mg tablet,extended 750 mg PO BID Diabetes 04/03/23 09/26/23 History
release 24 hr
ascorbic acid (vitamin C) 500 mg 500 mg PO DAILY Supplement 04/04/23 09/26/23 History
tablet (Vitamin C)
alprazolam 0.5 mg tablet 0.5 mg PO BIDPRN PRN Anxiety 09/26/23 09/26/23 History
amlodipine 5 mg tablet 5 mg PO DAILY Blood Pressure 09/26/23 09/26/23 History
clopidogrel 75 mg tablet 75 mg PO DAILY Blood Clot 09/26/23 09/26/23 History
Prevention/Tx
levetiracetam 500 mg tablet 500 mg PO QPM Seizures 09/26/23 09/26/23 History
levetiracetam 500 mg tablet 250 mg PO Daily Seizures 09/26/23 09/26/23 History
(Keppra)
melatonin 10 mg tablet 10 mg PO HS Sleep 09/26/23 09/26/23 History
ropinirole 0.5 mg tablet 0.5 mg PO QHS Restless legs 09/26/23 09/26/23 History
cefdinir 300 mg capsule 300 mg PO Q12H 5 days #10 caps 09/28/23 Rx
Review of Systems
-
History Source: Patient
All other systems: Negative unless noted
Constitutional: Fatigue
EENT: No Symptoms
Respiratory: Trouble Breathing
Cardiac: Other (Palpitations, shortness of breath and dyspnea on exertion. No chest pain)
Abdomen/GI: No Symptoms
: No Symptoms
Musculoskeletal: No Symptoms
Skin: No Symptoms
Neurological: No Symptoms
Hematologic/Lymphatic: No Symptoms
Physical Exam
Vital Signs
Temp Pulse Resp BP Pulse Ox
97.6 F 92 19 140/67 95
05/14/24 07:15 05/14/24 08:00 05/14/24 08:00 05/14/24 08:00 05/14/24 08:00
Lab Results
05/13/24 23:54
05/14/24 04:32
Troponin I < 0.012 ng/ml 05/13/24 23:54
Sar-G-Tfumyytmcye Pept 4430 pg/ml 05/13/24 23:54
Physical Exam
General: Well Developed, Well Nourished, No Apparent Distress and Comfortable
HEENT: Normocephalic, Anicteric and Moist Mucous Membranes
Respiratory: Other (Poor inspiratory effort but otherwise lungs are clear with no wheezes rales or rhonchi bilaterally)
Cardiac: S1/S2 and Regular Rhythm
Breast: Deferred by me
GI: Soft, Non Tender, Non Distended and Normal Bowel Sounds
Rectal: Deferred by Provider
Musculoskeletal: No Clubbing, No Cyanosis and Edema (There is +1 pretibial edema bilaterally)
Skin: Warm and Dry
Neuro: Awake, Alert and Oriented
Psych: Calm
Impression / Plan
-
Assessment:
Newly diagnosed atrial fibrillation and now with rapid ventricular rates
Acute decompensated congestive heart failure likely exacerbated by atrial fibrillation and rapid ventricular rates. Probably HFpEF based on echocardiogram from 2 years ago
History of multiple ischemic strokes which have been felt likely to represent small vessel disease and atherosclerosis. 3 weeks of cardiac monitoring May 2021 failed to demonstrate atrial fibrillation
Autonomic dysfunction/hypotension/orthostasis treated with midodrine as needed
Patient has not been compliant with abdominal binder, compressions for known orthostatic hypotension and has not taken midodrine consistently due to hypertension
Type 2 diabetes with diabetic neuropathy
History of seizure disorder
History of mild aortic stenosis
History of breast cancer having undergone XRT in the past
Recent cardiovascular testing:
-Echocardiogram April 15, 2022 finds small left ventricle with moderate left ventricular hypertrophy and ejection fraction of 60 to 65%. There is mild aortic stenosis with peak and mean gradients of 28 and 15 mmHg and calculated aortic valve area
of 1.5 cm�.
Recommendations:
She is back to sinus rhythm. She definitely decompensated with symptomatic congestive heart failure with development of atrial fibrillation and rapid rates.
-Rhythm control strategy with amiodarone 200 mg twice daily for 30 days then 200 mg daily
-Will initiate oral anticoagulation. Given her age and borderline weight (expect some further weight loss with diuresis) have started Eliquis at 2.5 mg twice daily
-Check echocardiogram to assess both LV function and I am concerned for possible worsening aortic stenosis
-Continue IV Lasix today and reassess need tomorrow
Discussed in detail with patient she expresses understanding and agrees with our evaluation and management.
Total time spent today was 75 minutes in preparing to see the patient, seeing the patient and coordination of care. This included review of recent laboratory evaluations, testing, imaging studies, hospital records, as well as personally interviewing
and examining the patient, which included discussion of their tests, review/ordering medications and also treatment planning as well as counseling.
Data Reviewed
-
EKG: Tracing Personally Visualized and interpreted and Discussed with Patient
Radiology: Image Personally Visualized and interpreted and Discussed with Patient
Medical Tests (Nuc Med, Echo etc): Report Reviewed by me
Labs: Labs Reviewed by me and Discussed with Patient
Old Records: Reviewed
[2024-05-14] MEDS: VIBRAMYCIN 100 MG PO ×2 (11:17→20:44)
[2024-05-14 12:45] LABS: Glucose - Point of Care 413 mg/dl (70-99)
--- NOTE | 2024-05-14 13:29 | W.PN.HOSP.TC ---
Addendum entered and electronically signed by Park Joyner MD 05/14/24 14:07:
Patient wants to be DNR-changed.
Speech evaluation noted-video swallow ordered
Original Note:
Today's Communication/Plan
-
Steroid stopped
Eliquis and amiodarone started
Okay to transfer to telemetry
PT OT
Assessment / Plan
Assessment / Plan
88-year-old female with shortness of breath
Chest x-ray reviewed by me-pulmonary edema questionable pneumonia left and interstitial changes
CVS: S1-S2 normal, SR now
Chest: Bilateral rales
Abdomen: Soft, NT / Bowel sounds present
Extremities: No edema, normal pulses
TOBACCO CHECKOUT CLERK: Non focal exam
# Acute hypoxic respiratory failure due below mentioned reasons
Was on 5 L of oxygen on admission
Weaned down to 2 L this morning
# Acute heart failure likely secondary to rapid rates from A-fib
Likely heart failure with preserved ejection fraction
Reportedly gained 3.3 kg
Elevated proBNP 4430
Continue IV Lasix
Check echo
Cardiology evaluation
# Acute asthmatic bronchitis
IV Decadron, nebulizer treatments
Oxygen supplementation
Add antibiotics with yellow sputum
Speech evaluation
Add Doxy
Steroids stopped by Pulm
Pulmonary evaluation
# New diagnosis of atrial fibrillation with rapid rate
Continue Cardizem drip
Eliquis and amiodarone started by cardiology
Back in sinus rhythm
Check echo
# Hyponatremia-likely secondary to volume overload
# Aortic stenosis/trace MR/history of small PFO/pulmonary hypertension
Check echo
# Mild elevation in AST and alk [id number] with diuresis
# Labile hypertension-Watch BP. Hold other meds
# Type 2 diabetes
Accu-Cheks and sliding scale coverage
Metformin at home. Dosage unknown. With steroids I will begin thousand twice daily
# History of CVA-left temporal lobe/left centrum [id number] Plavix. May be able to be stopped now that she is on Eliquis.
# Seizure disorder- Taken off of Keppra 3 months ago per pt
# History of breast cancer with left lumpectomy and radiation with recurrence and mastectomy .
# History of right carotid stenosis with stent
# Restless leg syndrome-on Requip
# GERD/hiatal hernia-PPI
# Diverticulosis
# Anxiety disorder-continue as needed Xanax
# History of L4-5 laminectomy/arthritis/osteopenia
# DVT prophylaxis- Eliquis
# CODE STATUS- Full CODE
Discussed with the patient's daughter on the phone. She is traveling now. She was able to verify that mom is not taking Keppra anymore. Other medicines that I have ordered were also verified by her. She would defer CODE STATUS to patient at this
point. She stated that patient was DNR in the past.
D/W RN
Med rec requested from Tia
Part of this note was created using voice recognition system. Occasional wrong word or��sound alike� substitutions may have inadvertently occurred due to the inherent limitations of voice recognition software. If noted kindly bring it to my
attention for correction.
time spent over 50 min
Anticipated Discharge: 24 - 48 hours
Subjective/Interval History
-
Date of Service: May 14, 2024
Objective Data
-
Labs:
Laboratory Results
05/14/24 05/14/24 05/14/24
04:32 08:46 13:22
APTT 60.4 H
Sodium 131 L
Potassium 4.0
Chloride 98
Carbon Dioxide 18 L
BUN 15
Creatinine 0.5 L
Glucose 282 H Pending
Calcium 8.9
Total Bilirubin 0.5
AST 38 H
ALT < 30
Alkaline Phosphatase 129 H
05/14/24
15:10
APTT Pending
Sodium
Potassium
Chloride
Carbon Dioxide
BUN
Creatinine
Glucose
Calcium
Total Bilirubin
AST
ALT
Alkaline Phosphatase
Vital Signs:
Vital Signs
Temp Pulse Resp BP Pulse Ox
97.6 F 77 19 140/67 97
05/14/24 07:15 05/14/24 11:15 05/14/24 11:15 05/14/24 08:00 05/14/24 11:15
I&O
05/13/24 05/14/24 05/15/24
06:59 06:59 06:59
Intake Total 155 / 155
Output Total 725 / 725 600 / 600
Balance -570 / -570 -600 / -600
[2024-05-14] MEDS: ELIQUIS 2.5 MG PO ×2 (13:40→20:44)
[2024-05-14] MEDS: PACERONE 200 MG PO ×2 (13:40→20:43)
[2024-05-14 13:59] LABS: Glucose 368 mg/dl (70-99)
--- NOTE | 2024-05-14 14:02 | PTOTSP ---
SPEECH THERAPY SWALLOW EVALUATION:
Patient exhibits clinical signs of oropharyngeal dysphagia, with suspected esophageal dysphagia, likely chronic related to history of CVA, GERD, hiatal hernia, in the setting of advanced age. Patient admitted with CXR indicating pneumonitis, cannot
r/o Left basilar pneumonia. Patient with history of VSE 05/2021 which indicated mild oral and mild-moderate pharyngeal dysphagia at that time. Now admitted with acute hypoxic respiratory insufficiency. Patient without signs of aspiration at bedside,
though with dysphagia risk factors and history of VSE indicating silent aspiration of thin liquids, unable to rule out silent aspiration. Recommend Videofluoroscopic Swallowing Study to further assess swallow function. Given chronicity of dysphagia
and grossly intact cognition at this time, recommend continue Regular texture diet, thin liquids until VSE. Medications whole in applesauce. Consider GI consult given suspected esophageal dysphagia. Reflux and Aspiration precautions including:
Upright positioning; Remain upright 30 minutes after eating/drinking; Small single sips/bites; Slow rate; Intersperse liquids; Select moist/soft textures; Monitor for signs of aspiration; D/c oral diet if any decline in mental or respiratory status.
Speech therapy to follow with additional recommendations following VSE.
RECOMMEND:
1) Videofluoroscopic Swallowing Study
2) Regular texture diet, thin liquids
3) Medications whole in applesauce
4) Consider GI consult given suspected esophageal dysphagia
5) Reflux and Aspiration precautions including: Upright positioning; Remain upright 30 minutes after eating/drinking; Small single sips/bites; Slow rate; Interperse liquids; Select moist/soft textures; Monitor for signs of aspiration; D/c oral diet
if any decline in mental or respiratory status
6) ST to follow
[2024-05-14] MEDS: NOVOLOG FLEXPEN-LOW RESISTANCE 5 UNITS SC (14:40)
[2024-05-14] MEDS: PLAVIX 75 MG PO (14:41)
[2024-05-14 16:49] LABS: Glucose - Point of Care 312 mg/dl (70-99)
[2024-05-14] MEDS: NOVOLOG FLEXPEN-LOW RESISTANCE 4 UNITS SC (16:59)
[2024-05-14] MEDS: GLUCOPHAGE 1000 MG PO (16:59)
[2024-05-14 21:08] LABS: APTT 30.1 Sec (23.4-35.0)
[2024-05-14] MEDS: XANAX 0.5 MG PO (22:20)
[2024-05-15] VITALS (8 sets, daily range): BP systolic 110–180; BP diastolic 54–100; BMI 20.7
[2024-05-15 00:38] LABS: Glucose - Point of Care 152 mg/dl (70-99)
[2024-05-15] MEDS: PLAVIX 75 MG PO (07:26)
[2024-05-15] MEDS: LASIX 20 MG IV ×2 (07:26→08:51)
[2024-05-15] MEDS: ELIQUIS 2.5 MG PO ×2 (07:26→20:11)
[2024-05-15] MEDS: XANAX 0.5 MG PO ×2 (07:26→17:40)
[2024-05-15] MEDS: PACERONE 200 MG PO ×2 (07:26→20:11)
[2024-05-15] MEDS: VIBRAMYCIN 100 MG PO ×2 (07:26→20:11)
[2024-05-15] MEDS: GLUCOPHAGE 1000 MG PO ×2 (07:26→16:54)
[2024-05-15] MEDS: DUONEB 3 ML INH ×4 (07:32→19:44)
--- NOTE | 2024-05-15 07:54 | PTCARENOTE ---
Pt woke up very SOB, sating 88 on 2L, increased to 5L now 94%, receiving a breathing treatment now and I gave her her scheduled 20mg IV Lasix and a PRN Xanax for anxiety. She is a DNR, LS coarse w/ crackles. BP is elevated 180/100. HR 110. EKG
confirmed ST w/ PVCs. Dr Sarkar notified. Will continue to monitor closely. Pt appears more comfortable 30 minutes after treatments
[2024-05-15 08:22] LABS: Glucose - Point of Care 196 mg/dl (70-99)
[2024-05-15] MEDS: NOVOLOG FLEXPEN-LOW RESISTANCE 1 UNITS SC ×2 (08:51→16:54)
--- NOTE | 2024-05-15 09:00 | W.PN.HOSP.TC ---
Addendum entered and electronically signed by Greyson Sarkar MD 05/15/24 09:27:
I saw and evaluated the patient. I reviewed the resident�s note and agree with findings and plan as documented in the resident�s note.
Pt c/o severely worsening SOB around 0700 today. NC O2 increased from 2L to 5L. At the time of my eval the patient reports that her shortness of breath had improved.
141/79, 100, 20, 97.5 �F, 97% 5L NC O2
Gen: NAD, Awake and alert, appears chronically ill
Eyes: EOMI, PERRLA, no scleral icterus.
Neck: supple.
CV: tachy, reg rhythm, +S1/S2, no m/r/g.
Resp: B/L expiratory rhonchi, rales in the bases
Abd: +BS, soft, NT, ND
Skin: No rashes.
Neuro: CN 2-12 intact, non-focal.
Psych: Normal mood and affect.
CXR:
1. Coarsening of the interstitial compartment, also seen on prior studies including 09/26/2023. Findings are likely reflective of interstitial fibrosis.
2. However, interstitial prominence and reticular interstitial thickening is significantly increased compared to 09/26/2023. Superimposed interstitial pneumonitis and/or worsening of interstitial fibrosis should be considered.
3. Partial obscuration of each hemidiaphragm. Bibasilar airspace disease and/or small bilateral pleural effusions may be present.
WBC 18.3
Acute hypoxemic respiratory failure:
-Appears to be multifactorial due to acute decompensated congestive heart failure (likely HFpEF) exacerbated by afib with RVR, ILD/IPF, and possibly asthmatic bronchitis
-extra dose of Lasix 20mg IV given this AM (total 40mg IV Lasix this AM)
-check echo
-pulm/cards following
-check CT Chest re:pulm fibrosis
-cont amio/eliquis
-cont duonebs
-received Solumedrol 125mg IV on 05/13/24 and then duonebs 4mg IV on 05/14/24. Consider restarting steroids.
Total time spent on today's encounter was 50 minutes which included time spent in counseling the patient/family regarding diagnosis and treatment plan as listed above, goals of care, and symptom management. Case was discussed with nursing staff,
specialists, and care coordinators/case management. All labs and imaging personally reviewed by me. Remainder the time spent in detailed review of previous records, lab data, imaging, and other medical provider documentation.
Original Note:
Today's Communication/Plan
-
- Continue furosemide
- Wean O2 as tolerated
- PT/OT
Assessment / Plan
Assessment / Plan
88-year-old female with shortness of breath
# Acute hypoxic respiratory failure due below mentioned reasons
Oxygen supplementation and supportive care
# Acute heart failure likely secondary to rapid rates from A-fib
Likely heart failure with preserved ejection fraction
Reportedly gained 3.3 kg
Elevated proBNP 4430
Continue IV Lasix
Check echo
Cardiology evaluation
# Acute asthmatic bronchitis
IV Decadron, nebulizer treatments
Oxygen supplementation
Add antibiotics with yellow sputum
Speech evaluation
Add Doxy
Steroids stopped by Pulm
Pulmonary evaluation
# New diagnosis of atrial fibrillation with rapid rate
Continue Cardizem drip
Eliquis and amiodarone started by cardiology
Back in sinus rhythm
Check echo
# Hyponatremia-likely secondary to volume overload
# Aortic stenosis/trace MR/history of small PFO/pulmonary hypertension
Check echo
# Mild elevation in AST and alk [id number] with diuresis
# Labile hypertension-Watch BP. Hold other meds
# Type 2 diabetes
Accu-Cheks and sliding scale coverage
Metformin at home. Dosage unknown. With steroids I will begin thousand twice daily
# History of CVA-left temporal lobe/left centrum [id number] Plavix. May be able to be stopped now that she is on Eliquis.
# Seizure disorder- Taken off of Keppra 3 months ago per pt
# History of breast cancer with left lumpectomy and radiation with recurrence and mastectomy .
# History of right carotid stenosis with stent
# Restless leg syndrome-on Requip
# GERD/hiatal hernia-PPI
# Diverticulosis
# Anxiety disorder-continue as needed Xanax
# History of L4-5 laminectomy/arthritis/osteopenia
# DVT prophylaxis- Eliquis
# CODE STATUS- DNR
Anticipated Discharge: Within 24 hours
Subjective/Interval History
-
Date of Service: May 15, 2024
Objective Data
-
Labs:
Laboratory Results
05/14/24 05/15/24
20:47 08:01
WBC Pending
Hgb Pending
Hct Pending
Plt Count Pending
APTT 30.1
Sodium Pending
Potassium Pending
Chloride Pending
Carbon Dioxide Pending
BUN Pending
Creatinine Pending
Glucose Pending
Calcium Pending
Vital Signs:
Vital Signs
Temp Pulse Resp BP Pulse Ox
97.5 F 100 20 141/79 97
05/15/24 07:38 05/15/24 08:00 05/15/24 08:00 05/15/24 08:00 05/15/24 08:00
I&O
05/14/24 05/15/24 05/16/24
06:59 06:59 06:59
Intake Total 155 / 155
Output Total 725 / 725 1100 / 1100
Balance -570 / -570 -1100 / -1100
Review of Systems
-
History Source: Patient
All other systems: Not reviewed unless documented
Physical Exam
-
General: Well Developed and No Apparent Distress
HEENT: Normocephalic, Atraumatic and Moist Mucous Membranes
Respiratory: Crackles
Cardiac: Regular Rhythm and S1/S2; Negative Murmur, Rub or Gallop
GI: Soft, Nontender, Nondistended and Normal Bowel Sounds; Negative Organomegaly
Rectal: Deferred by Provider
Musculoskeletal: No Clubbing, No Cyanosis and No Edema
Skin: Negative Rash
Neuro: Awake and Nonfocal/Grossly Intact
Psych: Calm
[2024-05-15 09:03] LABS: Hematocrit 33.9 % (37.0-47.0); Hemoglobin 11.7 g/dL (12.0-16.0); Mean Corp Hgb Conc. 34.5 g/dL (33.0-37.0); Mean Corpuscular Hgb 30.8 pg (27.0-31.0); Mean Corpuscular Volume 89.2 fL (81.0-99.0); Mean Platelet Volume 10.9 fL (7.4-10.4); Platelet Count 269 10^3/uL (130-400); Red Cell Dist. Width 15.2 % (11.5-14.5); White Blood Cell Count 18.3 10^3/uL (4.8-10.8)
[2024-05-15 09:37] LABS: Blood Urea Nitrogen 31 mg/dl (7-17); Carbon Dioxide 20 mmol/L (22-30); Chloride 94 mmol/L (98-107); Estimated Creatinine Clearance 55 ml/min; Glucose 185 mg/dl (70-99); Potassium 5.1 mmol/L (3.5-5.1); Sodium 128 mmol/L (135-145); eGFR > 60.00
--- NOTE | 2024-05-15 09:45 | W.PN.PUL.V3 ---
Today's Communication / Plan
-
Diuresis
Wean FiO2
Nebulizer
Check CT
Observe off steroids for now
Atrial fibrillation rate control
Assessment
-
Patient is an 88-year-old female with previous history of hypertension, diabetes, history of CVA, history of breast cancer, GERD presenting from [facility] via EMS for evaluation of shortness of breath and hypoxemia. O2 con was reportedly
85% on room air. She was noted to have inspiratory and expiratory wheezing on exam and was in A-fib with RVR 130s to 150s as well. Admitted to 05/14/24. CXR showing increased vascular markings suggesting heart failure superimposed on possible
underlying chronic lung disease. We are asked for eval.
Acute hypoxic respiratory failure, new onset
Acute CHF exacerbation
Afib with RVR
Wheezing/SOB
Possible underlying chronic ILD
Hyperglycemia
Hyponatremia
Leukocytosis
Mild anemia-hemoglobin 11.5
Conditions present prior to admission:
HTN
NIDDM
Breast Ca with Radiation Therapy s/p Left Mastectomy
GERD/Hiatal Hernia
Carotid stenosis, right s/p stent
History of seizures
Hypercholesterolemia
History of stroke 2020
RLS
UTIs
Hysterectomy
History of bowel resection
Back surgery
Iron Deficiency
Congenital malformation of esophagus
Postmenopausal atrophic vaginitis
Gait difficulty
Dysphagia
Former smoker
Plan
Repeat respiratory decompensation this morning responding to nebulizers
Increase supplemental oxygen
Assess discharge supplemental oxygen needs
Aspiration precautions
Speech therapy evaluation 05/14/2014 noted-recommending video swallow, regular diet thin liquids and consider GI consultation
Chest x-ray 05/15/2024-interstitial fibrosis suspected with superimposed pneumonitis or CHF also possibility
Continue nebulizers-DuoNebs
Observe off steroids for now
Suspected interstitial lung disease/fibrosis-obtain CT chest once 'euvolemic'
Prior history of lung disease is not noted --
No prior known history of lung disease, nonsmoker. Trivial use socially in her youth for a total of 5 years
COPD history in her father who was a smoker
Denies exposure history
Cardiology following patient
Diuresis as tolerated
Monitor renal function, electrolytes, intake/output, lower extremity edema and weight
Replace electrolytes as needed
Echocardiogram
Atrial fibrillation rate control
Now on amiodarone 200 mg twice daily-monitor for toxicity
Eliquis continues
DVT prophylaxis
Nutrition
Aspiration precautions
Early mobilization
Outpatient pulmonary follow-up
Diagnostic Data
Chest X-Ray: 05/14/24- Suspect diffuse interstitial pneumonitis and component of pulmonary vascular congestion. Cannot rule out superimposed left basilar pneumonia and/or underlying chronic interstitial changes.
09/26/23- No acute disease of the chest. Large hiatal hernia. Enlarged.
Echo: 04/23/22- 1. Small left ventricle with moderate left ventricular hypertrophy and preserved systolic function, EF 60-65%
2. Thickened mitral leaflets, mitral annular calcification, trace mitral regurgitation, and left atrial dilatation
3. Mild aortic stenosis, peak/mean gradient 28/15 mmHg, aortic valve area 1.5 cm2
4. Normal right heart with mild pulm hypertension, 36 mmHg systolic
5. Small patent foramen ovale
Subjective Data
-
Date of Service:
Date of Service: May 15, 2024
Chief Complaint: Pulmonary Follow Up and Dyspnea Follow Up
Subjective:
Complained of significant chest congestion this morning, helped by nebulizers, no chest pain, but complained of some wheezing, no abdominal pain
Review of Systems
General: Other (Per HPI)
Objective Data
Data Reviewed
Vital Signs / I&O:
Vital Signs
Temp Pulse Resp BP Pulse Ox
97.5 F 100 20 141/79 97
05/15/24 07:38 05/15/24 08:00 05/15/24 08:00 05/15/24 08:00 05/15/24 08:00
Intake and Output
05/14/24 05/15/24 05/16/24
06:59 06:59 06:59
Intake Total 155 / 155
Output Total 725 / 725 1100 / 1100
Balance -570 / -570 -1100 / -1100
SaO2: 97
Nasal Cannula flow liters per minute: 5
Physical Exam
General: Respiratory Distress (n) and Comfortable
HEENT: Normocephalic, Anicteric and Moist Mucous Membranes
Cardiovascular: Regular Rhythm
Respiratory: Wheeze (Forced expiratory), Crackles (Basilar), Rhonchi (Few expiratory), Non-Labored Respirations, Accessory Resp Muscle Use (n) and Stridor (n)
GI: Soft, Non Distended and Non Tender
Neurology: Awake, Alert and No Motor Deficits
Skin: Warm, Good Color, Cyanosis (n), Jaundice (n) and Rash (n)
Labs/Micro/Reports
Lab Data
05/15/24 08:01
05/15/24 08:01
Laboratory Results
05/14/24
20:47
APTT 30.1
--- NOTE | 2024-05-15 11:47 | CM ---
CM placed call to [facility], left message for nurse Stephen. Patient currently on O2. PT recommending return with home health, will need script for PT/OT upon discharge. CM will continue to follow for all discharge planning needs.
Plan; return to [facility] (respite), will need script for PT/OT upon discharge, will need report/fax called to facility upon discharge, patient will need transportation home.
[2024-05-15 12:57] LABS: Glucose - Point of Care 144 mg/dl (70-99)
[2024-05-15] MEDS: NOVOLOG FLEXPEN-LOW RESISTANCE SC (13:09)
--- NOTE | 2024-05-15 13:28 | PTOTSP ---
Video Swallow Examination
Delayed swallow onset, lingual weakness and a diminished pharyngeal stripping wave collectively contributed to trace laryngeal penetration of thin liquid, and pharyngeal stasis. Silent trace aspiration of thin liquid arose from pharyngeal stasis
during secondary swallow. Chin tuck did not protect airway with silent aspiration occurring during the swallow. Cued cough was weak and mostly ineffective.
Observation of esophageal emptying in upright position revealed contents slow to empty.
Recommend
1. Continue Regular solids but downgrade to Mildly Thick Liquids. Single cup sips.
2. Meds whole in applesauce.
3. Aspiration and reflux precautions.
4. Upright for 30 minutes after meals.
5. Oral care at least for times daily with suction toothbrush.
6. Not appropriate for ARHP until respiratory status improves.
7. Speech Therapy at next level of care follwoing discharge to assist with safe diet advancement.
--- NOTE | 2024-05-15 13:54 | W.PN.CARDCBS ---
Addendum entered and electronically signed by Vernon Adrian MD 05/15/24 15:16:
I saw and examined the patient.
The MOTOR INSPECTION MECHANIC or PA's note was reviewed and I agree with the note.
Comment: General: Well developed, well nourished in NAD.
Neck: Supple, no JVD, HJR, carotids +2 B/L, no bruits bilaterally.
Heart: Non displaced PMI, RRR, no murmurs, No S3, S4, no rubs.
Lungs: Scattered rhonchi
Extremities: No clubbing, cyanosis or edema bilaterally.
Neuro: Grossly nonfocal, awake, alert and oriented x3.
She complains of weakness. Remains on 4 L of oxygen. Will check echocardiogram and continue IV Lasix. Unclear how much of this is due to CHF versus interstitial lung disease. Continue attempts at diuresis.
Original Note:
Today's Communication / Plan
-
Continue gentle IV diuresis
Echocardiogram today
Wean oxygen as tolerated
Continue amiodarone and Eliquis
Impression / Plan
-
PCP: Nuzhat Gold
Utility Forester: Dr. Deana Funes
Impression:
Presented 05/13/2024 with SOB and hypoxemia
Acute hypoxic respiratory insufficiency
Newly diagnosed atrial fibrillation and now with rapid ventricular rates
Acute decompensated heart failure with preserved ejection fraction on echo 2021, proBNP 4430
Aortic stenosis
Hyponatremia
Leukocytosis
History of multiple ischemic strokes which have been felt likely to represent small vessel disease and atherosclerosis.
Autonomic dysfunction/hypotension/orthostasis treated with midodrine as needed
Patient has not been compliant with abdominal binder, compressions for known orthostatic hypotension and has not taken midodrine consistently due to hypertension
Type 2 diabetes with diabetic neuropathy
History of seizure disorder
Breast Ca with Radiation Therapy s/p Left Mastectomy
GERD/Hiatal Hernia
Carotid stenosis, right s/p stent
Hypercholesterolemia
RLS
UTIs
Hysterectomy
History of bowel resection
Back surgery
Iron Deficiency
Congenital malformation of esophagus
Postmenopausal atrophic vaginitis
Gait difficulty
Dysphagia
Former smoker
Echo 05/15/2024: pending
Echocardiogram April 15, 2022 finds small left ventricle with moderate left ventricular hypertrophy and ejection fraction of 60 to 65%. There is mild aortic stenosis with peak and mean gradients of 28 and 15 mmHg and calculated aortic valve area of
1.5 cm�.
3 weeks of cardiac monitoring May 2021 failed to demonstrate atrial fibrillation
Plan:
-Presented 05/13/2024 with SOB and hypoxemia and found to have Acute hypoxic respiratory insufficiency
-Acute decompensated heart failure with preserved ejection fraction on echo 2021 likely exacerbated by atrial fibrillation and rapid ventricular rates.
-Would repeat echo to reassess LV function and concerned for possible worsening aortic stenosis
-Continue gentle IV diuresis
-Follow electrolytes, sodium now 128
-Creat stable at 0.7, bump in BUN from 15 the 31 continue to monitor
-Still on 4 lpm of oxygen, wean as tolerated
-Paroxysmal atrial fibrillation with RVR on presentation Now back in to sinus rhythm.
-Rhythm control strategy with amiodarone 200 mg twice daily for 30 days then 200 mg daily, amio started 05/14/24
-New to oral anticoagulation. Given her age and borderline weight (expect some further weight loss with diuresis) have started Eliquis at 2.5 mg twice daily
-History of strokes on Plavix
-Concern for interstitial lung disease, pulmonary following. Recommending eventual CT of chest
HPI 05/14/2024:
88-year-old woman living at [facility] who presented to the emergency department with acute worsening of baseline shortness of breath over the preceding 3 to 4 hours. Emergency services noted desaturation of 85%. Acutely she is found to be
in atrial fibrillation with rapid ventricular rate of 130s to 150s. Atrial fibrillation appears to be a newly documented diagnosis. Additional medical history is that she was placed on doxycycline approximately 2 weeks ago for a presumed pulmonary
infection.
On presentation she is found to be hyponatremic with sodium of 132, BUN and creatinine 15 and 0.6. proBNP is elevated at 4430 and troponin I is undetectable.
She was administered 20 mg of Lasix intravenously in the emergency department.
Progress Note - Utility Forester
Subjective
Date of Service: May 15, 2024
Patient seen and examined. Patient sitting up in bed complaining of feeling unwell with intermittent shortness of breath and worsening fatigue. Still wearing oxygen
Objective
Labs:
05/15/24 08:01
05/15/24 08:01
Labs
Hgb 11.7 g/dL (12.0-16.0) L 05/15/24 08:01
Hct 33.9 % (37.0-47.0) L 05/15/24 08:01
Plt Count 269 10^3/uL (130-400) 05/15/24 08:01
APTT 30.1 Sec (23.4-35.0) 05/14/24 20:47
Sodium 128 mmol/L (135-145) L 05/15/24 08:01
Potassium 5.1 mmol/L (3.5-5.1) D 05/15/24 08:01
BUN 31 mg/dl (7-17) H 05/15/24 08:01
Creatinine 0.7 mg/dL (0.6-1.0) 05/15/24 08:01
Glucose 185 mg/dl (70-99) H 05/15/24 08:01
Troponins
05/13/24
23:54
Troponin I < 0.012
Vital Signs and I&O:
Vital Signs
Temp Pulse Resp BP Pulse Ox
97.7 F 90 20 120/65 99
05/15/24 13:09 05/15/24 13:09 05/15/24 13:09 05/15/24 13:09 05/15/24 13:09
Vital Signs
Temp Pulse Resp BP Pulse Ox
97.7 F 90 20 120/65 99
05/15/24 13:09 05/15/24 13:09 05/15/24 13:09 05/15/24 13:09 05/15/24 13:09
Intake & Output
05/13/24 05/14/24 05/15/24 05/16/24
06:59 06:59 06:59 06:59
Intake Total 155 / 155
Output Total 725 / 725 1100 / 1100
Balance -570 / -570 -1100 / -1100
Physical Exam
Physical Exam
GEN: No distress, awake, Ox3
HEENT: supple, anicteric, mmm
LUNGS: Mildly decreased breath sounds with faint expiratory wheezes and faint crackles at bases
CV: Reg, S1/S2, 2/6 harsh radiating murmur, no rub or gallop
ABD: soft, BS+, NT/ND
EXT: No edema, clubbing or cyanosis
NEURO: Gross non-focal
SKIN: No rash, warm, dry, pink
[2024-05-15 16:18] LABS: Glucose - Point of Care 161 mg/dl (70-99)
[2024-05-15 21:45] LABS: Glucose - Point of Care 139 mg/dl (70-99)
[2024-05-16] VITALS (8 sets, daily range): BP systolic 109–147; BP diastolic 65–84; PULSE 93; O2SAT 94; BMI 20.7
[2024-05-16] MEDS: DUONEB 3 ML INH ×3 (07:30→19:39)
[2024-05-16 07:39] LABS: Glucose - Point of Care 144 mg/dl (70-99)
[2024-05-16 08:39] LABS: Hematocrit 31.8 % (37.0-47.0); Mean Corp Hgb Conc. 34.6 g/dL (33.0-37.0); Mean Corpuscular Hgb 31.1 pg (27.0-31.0); Mean Corpuscular Volume 89.8 fL (81.0-99.0); Mean Platelet Volume 10.5 fL (7.4-10.4); Platelet Count 230 10^3/uL (130-400); Red Blood Cell Count 3.54 10^6/uL (4.20-5.40); White Blood Cell Count 11.3 10^3/uL (4.8-10.8)
[2024-05-16] MEDS: VIBRAMYCIN 100 MG PO ×2 (09:07→20:23)
[2024-05-16] MEDS: PLAVIX 75 MG PO (09:07)
[2024-05-16] MEDS: PACERONE 200 MG PO ×2 (09:07→20:24)
[2024-05-16] MEDS: NOVOLOG FLEXPEN-LOW RESISTANCE SC ×2 (09:07→17:00)
[2024-05-16] MEDS: GLUCOPHAGE 1000 MG PO ×2 (09:08→17:46)
[2024-05-16] MEDS: ELIQUIS 2.5 MG PO ×2 (09:08→20:23)
[2024-05-16] MEDS: LASIX 20 MG IV ×2 (09:10→11:13)
[2024-05-16 09:11] LABS: Blood Urea Nitrogen 33 mg/dl (7-17); Calcium 9.5 mg/dl (8.4-10.2); Carbon Dioxide 27 mmol/L (22-30); Chloride 92 mmol/L (98-107); Estimated Creatinine Clearance 48 ml/min; Glucose 127 mg/dl (70-99); Potassium 4.6 mmol/L (3.5-5.1); Sodium 129 mmol/L (135-145); eGFR > 60.00
--- NOTE | 2024-05-16 09:17 | W.PN.PUL.V3 ---
Today's Communication / Plan
-
Continue nebulizers
Diuresis as tolerated-suspect interstitial lung disease is mild and decompensation more likely related to CHF
Wean oxygen
Increase activity
Assessment
-
Patient is an 88-year-old female with previous history of hypertension, diabetes, history of CVA, history of breast cancer, GERD presenting from [facility] via EMS for evaluation of shortness of breath and hypoxemia. O2 con was reportedly
85% on room air. She was noted to have inspiratory and expiratory wheezing on exam and was in A-fib with RVR 130s to 150s as well. Admitted to 05/14/24. CXR showing increased vascular markings suggesting heart failure superimposed on possible
underlying chronic lung disease. We are asked for eval.
Acute hypoxic respiratory failure, new onset
Acute CHF exacerbation-reduced EF
Afib with RVR
Wheezing/SOB
Possible underlying chronic ILD-suspect very mild per CT 05/15/2024
Hyperglycemia
Hyponatremia
Leukocytosis
Mild anemia-hemoglobin 11.5
Conditions present prior to admission:
HTN
NIDDM
Breast Ca with Radiation Therapy s/p Left Mastectomy
GERD/Hiatal Hernia
Carotid stenosis, right s/p stent
History of seizures
Hypercholesterolemia
History of stroke 2020
RLS
UTIs
Hysterectomy
History of bowel resection
Back surgery
Iron Deficiency
Congenital malformation of esophagus
Postmenopausal atrophic vaginitis
Gait difficulty
Dysphagia
Former smoker
Moderate aortic stenosis
Diastolic dysfunction
Reduced EF-40%-was 60%
Mild bronchiectasis
Plan
Pulmonary status improved with diuresis and nebulizers
Continue supplemental oxygen-attempt to wean
Assess discharge supplemental oxygen needs
Aspiration precautions per protocol
Speech therapy evaluation 05/14/2014 noted-recommending video swallow, regular diet thin liquids and consider GI consultation
Chest x-ray 05/15/2024-interstitial fibrosis suspected with superimposed pneumonitis or CHF also possibility
Continue nebulizers-DuoNebs
Observe off steroids for now
Suspected mild interstitial fibrosis
CT chest 05/15/2024-mild reticular interstitial thickening at the lung bases with mild basilar bronchiectasis suggesting mild interstitial fibrosis, superimposed interstitial pneumonitis suspected with small bilateral pleural effusions and severe
coronary artery calcifications and large hiatal hernia
Prior history of lung disease is not noted
No prior known history of lung disease, nonsmoker. Trivial use socially in her youth for a total of 5 years
COPD history in her father who was a smoker
Denies exposure history
Cardiology following patient-correspondence reviewed
Diuresis as tolerated
Monitor renal function, electrolytes, intake/output, lower extremity edema and weight
Replace electrolytes as needed
Echocardiogram 05/15/2024-EF 40-45%, stage II diastolic dysfunction, mild mitral regurgitation, moderate aortic stenosis
Atrial fibrillation rate control
Now on amiodarone 200 mg twice daily-monitor for toxicity
Eliquis continues
DVT prophylaxis-on Eliquis
Nutrition
Aspiration precautions
PT/OT
Outpatient pulmonary follow-up
Diagnostic Data
Chest X-Ray: 05/14/24- Suspect diffuse interstitial pneumonitis and component of pulmonary vascular congestion. Cannot rule out superimposed left basilar pneumonia and/or underlying chronic interstitial changes.
09/26/23- No acute disease of the chest. Large hiatal hernia. Enlarged.
CT chest 05/15/2024-mild reticular interstitial thickening at the lung bases with mild basilar bronchiectasis suggesting mild interstitial fibrosis, superimposed interstitial pneumonitis suspected with small bilateral pleural effusions and severe
coronary artery calcifications and large hiatal hernia
Echo: 04/23/22- 1. Small left ventricle with moderate left ventricular hypertrophy and preserved systolic function, EF 60-65%
2. Thickened mitral leaflets, mitral annular calcification, trace mitral regurgitation, and left atrial dilatation
3. Mild aortic stenosis, peak/mean gradient 28/15 mmHg, aortic valve area 1.5 cm2
4. Normal right heart with mild pulm hypertension, 36 mmHg systolic
5. Small patent foramen ovale
Echocardiogram 05/15/2024-EF 40-45%, stage II diastolic dysfunction, mild mitral regurgitation, moderate aortic stenosis
Subjective Data
-
Date of Service:
Date of Service: May 16, 2024
Chief Complaint: Pulmonary Follow Up and Dyspnea Follow Up
Subjective:
Feels 'much better', less wheezing, chest congestion, less shortness of breath, no chest pain or abdominal pain
Review of Systems
General: Other (Per HPI)
Objective Data
Data Reviewed
Vital Signs / I&O:
Vital Signs
Temp Pulse Resp BP Pulse Ox
97.4 F 86 16 147/84 95
05/16/24 07:00 05/16/24 09:07 05/16/24 07:33 05/16/24 09:07 05/16/24 07:33
Intake and Output
05/15/24 05/16/24 05/17/24
06:59 06:59 06:59
Intake Total 480 / 480 0 / 0
Output Total 1100 / 1100 900 / 1300 400 / 400
Balance -1100 / -1100 -420 / -820 -400 / -400
SaO2: 95
Nasal Cannula flow liters per minute: 2
Physical Exam
General: Respiratory Distress (n) and Comfortable
HEENT: Normocephalic, Anicteric and Moist Mucous Membranes
Cardiovascular: Regular Rhythm
Respiratory: Wheeze (Forced expiratory), Crackles (Basilar), Rhonchi (Few expiratory), Non-Labored Respirations, Accessory Resp Muscle Use (n) and Stridor (n)
GI: Soft, Non Distended and Non Tender
Neurology: Awake, Alert and No Motor Deficits
Skin: Warm, Good Color, Cyanosis (n), Jaundice (n) and Rash (n)
Labs/Micro/Reports
Lab Data
05/16/24 07:43
05/16/24 07:43
--- NOTE | 2024-05-16 09:28 | W.PN.HOSP.TC ---
Addendum entered and electronically signed by Greyson Sarkar MD 05/16/24 10:57:
I saw and evaluated the patient. I reviewed the resident�s note and agree with findings and plan as documented in the resident�s note.
Patient reports shortness of breath has significantly improved from yesterday.
Gen: NAD, Awake and alert, appears chronically ill
Eyes: EOMI, PERRLA, no scleral icterus.
Neck: supple.
CV: RRR, +S1/S2, no m/r/g.
Resp: CTAB
Abd: +BS, soft, NT, ND
Skin: No rashes.
Neuro: CN 2-12 intact, non-focal.
Psych: anxious
CXR:
1. Coarsening of the interstitial compartment, also seen on prior studies including 09/26/2023. Findings are likely reflective of interstitial fibrosis.
2. However, interstitial prominence and reticular interstitial thickening is significantly increased compared to 09/26/2023. Superimposed interstitial pneumonitis and/or worsening of interstitial fibrosis should be considered.
3. Partial obscuration of each hemidiaphragm. Bibasilar airspace disease and/or small bilateral pleural effusions may be present.
CT chest:
1. Mild reticular interstitial thickening in each lung base, associated with mild bibasilar bronchiectasis. Findings are suggestive of mild interstitial fibrosis. Minimal scarring at the right lung apex and within the lingular segment.
2. Scattered groundglass opacities within the right upper lobe and at each lung base. Findings may represent superimposed interstitial pneumonitis, most pronounced within the right upper lobe.
3. Small bilateral pleural effusions.
4. Severe coronary arterial calcification. Please correlate with symptoms of and risk factors for coronary artery disease, with further workup as clinically appropriate.
5. Large hiatal hernia.
Echo: Normal left ventricular chamber size. Mildly reduced left ventricular systolic
function. Left ventricular ejection fraction is 40-45% by volumetric
assessment. Global hypokinesis. Normal left ventricular wall thickness.
Stage II diastolic dysfunction suggestive of abnormal relaxation and increased
filling pressures.
Thickened mitral valve leaflets. Mitral annular calcification. Mitral valve
opens normally. Mild mitral regurgitation.
Indexed LA volume is moderately abnormal (42-48 mL/m2).
Calcified aortic valve. Mild to moderate aortic stenosis. Peak gradient 27
mmHg/Mean gradient 18 mmHg -using an LVOT of 1.9 cm the estimated aortic valve
area is 1.4 cm2. Trace aortic regurgitation is seen.
Since echocardiogram March 2022, ejection fraction is decreased to 40-45%.
Acute hypoxemic respiratory failure:
-Appears to be multifactorial due to acute decompensated congestive heart failure (HFrEF) exacerbated by afib with RVR (this is the largest contributor to acute hypoxemic respiratory failure), interstitial lung disease with interstitial pneumonitis,
and possibly asthmatic bronchitis
-CT chest above, notable for mild interstitial fibrosis with bronchiectasis and interstitial pneumonitis
-Echo above, notable for ejection fraction lower than prior, global hypokinesis, mild to moderate aortic stenosis, grade 2 diastolic dysfunction
-increase Lasix to 40mg IV daily
-pulm/cards following
-cont amio/eliquis
-cont duonebs
-received Solumedrol 125mg IV on 05/13/24 and then duonebs 4mg IV on 05/14/24. Case discussed with Dr. Chavez, no indication for steroids at this time.
Begin discharge planning
Total time spent on today's encounter was 51 minutes which included time spent in counseling the patient/family regarding diagnosis and treatment plan as listed above, goals of care, and symptom management. Case was discussed with nursing staff,
specialists, and care coordinators/case management. All labs and imaging personally reviewed by me. Remainder the time spent in detailed review of previous records, lab data, imaging, and other medical provider documentation.
Original Note:
Today's Communication/Plan
-
- Continue diuresis.
- Continue nebs.
- Oxygen supplementation as needed.
- PT/OT.
Assessment / Plan
Assessment / Plan
88-year-old female with shortness of breath
Acute hypoxic respiratory failure
Mild interstitial fibrosis
- CT chest findings suggestive of interstitial disease.
- Oxygen supplementation and supportive care
- Continue nebulizers-DuoNebs
- Pulmonology following.
Acute on chronic heart failure likely secondary to rapid rates from A-fib
Likely heart failure with preserved or mid-range ejection fraction
- Reportedly gained 3.3 kg
- Elevated proBNP 4430
- Continue IV Lasix
- Echo with LVEF of 40-45% and stage II diastolic dysfunction.
- Cardiology evaluation
Acute asthmatic bronchitis
- IV Decadron, nebulizer treatments
- Oxygen supplementation
- Add antibiotics with yellow sputum
- Speech evaluation
- Add Doxy
- Steroids stopped by Pulm
- Pulmonary evaluation
New diagnosis of atrial fibrillation with rapid rate
- Eliquis and amiodarone started by cardiology
- Back in sinus rhythm
- Check echo
Hyponatremia
- likely secondary to volume overload
Aortic stenosis/trace MR/history of small PFO/pulmonary hypertension
- Check echo
Labile hypertension
- Watch BP. Hold other meds
Type 2 diabetes
- Accu-Cheks and sliding scale coverage
- Metformin
History of CVA
- left temporal lobe/left centrum [id number] Plavix.
- May be able to be stopped now that she is on Eliquis.
Seizure disorder
- Taken off of Keppra 3 months ago per pt
History of breast cancer with left lumpectomy and radiation with recurrence and mastectomy .
History of right carotid stenosis with stent
Restless leg syndrome
- on Requip
GERD/hiatal hernia
-PPI
Anxiety disorder
-continue as needed Xanax
VTE prophylaxis
- Eliquis
Code status
- DNR-DNI.
Anticipated Discharge: 24 - 48 hours
Subjective/Interval History
-
Date of Service: May 16, 2024
Objective Data
-
Labs:
Laboratory Results
05/16/24
07:43
WBC 11.3 H
Hgb 11.0 L
Hct 31.8 L
Plt Count 230
Sodium 129 L
Potassium 4.6
Chloride 92 L
Carbon Dioxide 27
BUN 33 H
Creatinine 0.8
Glucose 127 H
Calcium 9.5
Vital Signs:
Vital Signs
Temp Pulse Resp BP Pulse Ox
97.4 F 86 16 147/84 95
05/16/24 07:00 05/16/24 09:07 05/16/24 07:33 05/16/24 09:07 05/16/24 09:17
I&O
05/15/24 05/16/24 05/17/24
06:59 06:59 06:59
Intake Total 480 / 480 0 / 0
Output Total 1100 / 1100 900 / 1300 400 / 400
Balance -1100 / -1100 -420 / -820 -400 / -400
Review of Systems
-
History Source: Patient
All other systems: Not reviewed unless documented
Physical Exam
-
General: Well Developed and No Apparent Distress
HEENT: Normocephalic, Atraumatic and Moist Mucous Membranes
Respiratory: Crackles
Cardiac: Regular Rhythm and S1/S2; Negative Murmur, Rub or Gallop
GI: Soft, Nontender, Nondistended and Normal Bowel Sounds; Negative Organomegaly
Rectal: Deferred by Provider
Musculoskeletal: No Clubbing, No Cyanosis and No Edema
Skin: Negative Rash
Neuro: Awake and Nonfocal/Grossly Intact
Psych: Calm
[2024-05-16] MEDS: XANAX 0.5 MG PO ×2 (10:07→20:28)
--- NOTE | 2024-05-16 10:24 | CM ---
Patient seen bedside, tearful, asking for her chair to sit in, relayed to nurse. Patient remains on O2, not on home O2. Patient agreeable to PT services when returning back to [facility], will need script for PT/OT upon discharge. CM will continue to
follow for all discharge planning needs.
Plan; return to [facility] (respite care), will need script for PT/OT upon discharge, wean O2.
[facility] will need report/fax called upon discharge.
[2024-05-16 11:34] LABS: Urine Sodium 77 mmol/L (30-90)
[2024-05-16 11:57] LABS: Glucose - Point of Care 246 mg/dl (70-99)
[2024-05-16] MEDS: NOVOLOG FLEXPEN-LOW RESISTANCE 2 UNITS SC (12:08)
[2024-05-16 12:38] LABS: Osmolality Serum 281 mOsm/kg (275-300)
--- NOTE | 2024-05-16 13:37 | W.PN.CARDCBS ---
Addendum entered and electronically signed by Elmo Aragon DO 05/16/24 16:15:
I saw and examined the patient.
The Machine Operator Picker's note was reviewed and I agree with the note.
Comment:
Plan:
Continue IV Lasix diuresis with likely transition to oral diuretics next 24 hours
Wean O2 as able
Remains sinus rhythm. Continue amiodarone and Eliquis. Low-dose Toprol for rate control.
Cardiomyopathy may be secondary to atrial fibrillation with RVR.
Reevaluate echo as outpatient with consideration for ischemic evaluation.
Original Note:
Today's Communication / Plan
-
Continue IV Lasix
Wean supplemental oxygen as able
In sinus rhythm. Continue amiodarone, Eliquis. Add low-dose Toprol
Consider outpatient ischemic evaluation
Impression / Plan
-
PCP: Nuzhat Gold
Gravel Truck Driver: Dr. Deana Funes
Impression:
Presented 05/13/2024 with SOB and hypoxemia
Acute hypoxic respiratory insufficiency
Newly diagnosed atrial fibrillation and now with rapid ventricular rates
Acute decompensated heart failure with reduced ejection fraction by echo 05/15/24, proBNP 4430
Aortic stenosis, mild to mod
Hyponatremia
Leukocytosis
History of multiple ischemic strokes which have been felt likely to represent small vessel disease and atherosclerosis.
Autonomic dysfunction/hypotension/orthostasis treated with midodrine as needed
Patient has not been compliant with abdominal binder, compressions for known orthostatic hypotension and has not taken midodrine consistently due to hypertension
Type 2 diabetes with diabetic neuropathy
History of seizure disorder
Breast Ca with Radiation Therapy s/p Left Mastectomy
GERD/Hiatal Hernia
Carotid stenosis, right s/p stent
Hypercholesterolemia
RLS
UTIs
Hysterectomy
History of bowel resection
Back surgery
Iron Deficiency
Congenital malformation of esophagus
Postmenopausal atrophic vaginitis
Gait difficulty
Dysphagia
Former smoker
Echo 05/15/2024: pending
Echocardiogram April 15, 2022 finds small left ventricle with moderate left ventricular hypertrophy and ejection fraction of 60 to 65%. There is mild aortic stenosis with peak and mean gradients of 28 and 15 mmHg and calculated aortic valve area of
1.5 cm�.
3 weeks of cardiac monitoring May 2021 failed to demonstrate atrial fibrillation
Echo 05/15/2024: EF 40 to 45%, global hypokinesis, stage II diastolic dysfunction, MAC, mild MR, mild to moderate with peak/mean gradients 27/18 mmHg, KAYLEIGH 1.4 cm�, trace AR
Plan:
-Presented 05/13/2024 with SOB and hypoxemia and found to be in acute heart failure
-Continue IV Lasix diuresis. Creatinine stable. Was not on diuretic therapy prior to admission
-CHF education
-Follow hyponatremia in the setting of diuresis
-Was found to be in rapid atrial fibrillation on arrival as well. Spontaneously converted to sinus rhythm and was started on amiodarone 200mg BID for 30 days then 200mg daily for rhythm control and Eliquis 2.5mg BID
-Echocardiogram with newly reduced EF of 40 to 45%, mild to moderate
-Will add Toprol 12.5 mg daily. Consider addition of DAVID/ARB/Entresto/Aldactone as blood pressure will tolerate
-She is not a candidate for SGLT2 inhibitors given history of UTIs
-Suspected cardiomyopathy secondary to rapid atrial fibrillation. Troponin negative x 1. Severe coronary artery calcification noted by chest CT. Would consider for outpatient ischemic evaluation
-Wean supplemental oxygen as able. Chest CT with evidence of interstitial fibrosis as well as possible interstitial pneumonitis. pulm following
-History of strokes on chronic Plavix
HPI 05/14/2024:
88-year-old woman living at [facility] who presented to the emergency department with acute worsening of baseline shortness of breath over the preceding 3 to 4 hours. Emergency services noted desaturation of 85%. Acutely she is found to be
in atrial fibrillation with rapid ventricular rate of 130s to 150s. Atrial fibrillation appears to be a newly documented diagnosis. Additional medical history is that she was placed on doxycycline approximately 2 weeks ago for a presumed pulmonary
infection.
On presentation she is found to be hyponatremic with sodium of 132, BUN and creatinine 15 and 0.6. proBNP is elevated at 4430 and troponin I is undetectable.
She was administered 20 mg of Lasix intravenously in the emergency department.
Progress Note - Gravel Truck Driver
Subjective
Date of Service: May 16, 2024
Reports breathing improving. No chest pain
Objective
Labs:
05/16/24 07:43
05/16/24 07:43
Labs
Hgb 11.0 g/dL (12.0-16.0) L 05/16/24 07:43
Hct 31.8 % (37.0-47.0) L 05/16/24 07:43
Plt Count 230 10^3/uL (130-400) 05/16/24 07:43
APTT 30.1 Sec (23.4-35.0) 05/14/24 20:47
Sodium 129 mmol/L (135-145) L 05/16/24 07:43
Potassium 4.6 mmol/L (3.5-5.1) 05/16/24 07:43
BUN 33 mg/dl (7-17) H 05/16/24 07:43
Creatinine 0.8 mg/dL (0.6-1.0) 05/16/24 07:43
Glucose 127 mg/dl (70-99) H 05/16/24 07:43
Troponins
05/13/24
23:54
Troponin I < 0.012
Vital Signs and I&O:
Vital Signs
Temp Pulse Resp BP Pulse Ox
98.2 F 90 18 109/65 96
05/16/24 11:28 05/16/24 11:28 05/16/24 11:28 05/16/24 11:28 05/16/24 11:28
Vital Signs
Temp Pulse Resp BP Pulse Ox
98.2 F 90 18 109/65 96
05/16/24 11:28 05/16/24 11:28 05/16/24 11:28 05/16/24 11:28 05/16/24 11:28
Intake & Output
05/14/24 05/15/24 05/16/24 05/17/24
07:59 07:59 07:59 07:59
Intake Total 155 / 155 480 / 480
Output Total 725 / 725 1100 / 1100 1300 / 1300 500 / 500
Balance -570 / -570 -1100 / -1100 -820 / -820 -500 / -500
Physical Exam
Physical Exam
GEN: No distress, awake, alert, oriented x3. On supplemental oxygen
HEENT: supple, anicteric, mmm, EOMI
LUNGS: Fine crackles at bases, no wheezes
CV: Reg, S1/S2, 1/6 syst LSB
ABD: soft, BS+, NT/ND
EXT: No cyanosis, clubbing, edema
NEURO: Gross non-focal
SKIN: Warm, pink, dry. No rash. Scattered ecchymoses of bilateral upper extremity
[2024-05-16 14:00] LABS: Osmolality Urine 321 mOsm/kg (300-900)
[2024-05-16] MEDS: DUONEB INH (15:20)
[2024-05-16] MEDS: TOPROL XL 12.5 MG PO (15:45)
[2024-05-16 16:50] LABS: Glucose - Point of Care 121 mg/dl (70-99)
--- NOTE | 2024-05-16 18:26 | PTCARENOTE ---
Received patient this am AAOx3. Pt anxious and tearful. Pt medicated with Xanax this am with relief. Pt OOB to chair an tolerated well. Tolerated diet. Made patient comfortable. Cont to assess patient status.
[2024-05-16 21:23] LABS: Glucose - Point of Care 165 mg/dl (70-99)
--- NOTE | 2024-05-17 02:55 | DOWNTIME ---
There was a [employer] Client Powersaw Supervisor Downtime on 05/17/2024 from 0100 to 05/17/2024 at 0252. Downtime documentation of patient's care, including medication administrations, has been reconciled in the electronic record per guidelines. Refer to the
patient's paper chart under the miscellaneous tab to see printed paper medication records and downtime forms.
[2024-05-17 03:42] VITALS: BP 130/67
[2024-05-17 06:00] VITALS: BMI 19.8
[2024-05-17 07:28] LABS: Glucose - Point of Care 148 mg/dl (70-99)
[2024-05-17 07:30] VITALS: BP 147/80
[2024-05-17] MEDS: NOVOLOG FLEXPEN-LOW RESISTANCE SC (07:30)
[2024-05-17] MEDS: DUONEB 3 ML INH (07:52)
--- NOTE | 2024-05-17 08:39 | W.PN.HOSP.TC ---
Addendum entered and electronically signed by Greyson Sarkar MD 05/17/24 11:35:
Total time spent on d/c = 32 min. This included today's physical exam, progress note, review of laboratory and diagnostic data, preparation of discharge documents and prescriptions, and discussions about the pt's hospital course and discharge plan
with the patient and other medical or surgical instrument maker involved in the patient's care.
Addendum entered and electronically signed by Greyson Sarkar MD 05/17/24 09:42:
I saw and evaluated the patient. I reviewed the resident�s note and agree with findings and plan as documented in the resident�s note.
Patient reports shortness of breath has significantly improved since admission (despite some residual SOB).
Gen: NAD, Awake and alert, appears chronically ill
Eyes: EOMI, PERRLA, no scleral icterus.
Neck: supple.
CV: remains RRR, +S1/S2, no m/r/g.
Resp: remains CTAB
Abd: +BS, soft, NT, ND
Skin: No rashes.
Neuro: CN 2-12 intact, non-focal.
Psych: calm
CXR:
1. Coarsening of the interstitial compartment, also seen on prior studies including 09/26/2023. Findings are likely reflective of interstitial fibrosis.
2. However, interstitial prominence and reticular interstitial thickening is significantly increased compared to 09/26/2023. Superimposed interstitial pneumonitis and/or worsening of interstitial fibrosis should be considered.
3. Partial obscuration of each hemidiaphragm. Bibasilar airspace disease and/or small bilateral pleural effusions may be present.
CT chest:
1. Mild reticular interstitial thickening in each lung base, associated with mild bibasilar bronchiectasis. Findings are suggestive of mild interstitial fibrosis. Minimal scarring at the right lung apex and within the lingular segment.
2. Scattered groundglass opacities within the right upper lobe and at each lung base. Findings may represent superimposed interstitial pneumonitis, most pronounced within the right upper lobe.
3. Small bilateral pleural effusions.
4. Severe coronary arterial calcification. Please correlate with symptoms of and risk factors for coronary artery disease, with further workup as clinically appropriate.
5. Large hiatal hernia.
Echo: Normal left ventricular chamber size. Mildly reduced left ventricular systolic
function. Left ventricular ejection fraction is 40-45% by volumetric
assessment. Global hypokinesis. Normal left ventricular wall thickness.
Stage II diastolic dysfunction suggestive of abnormal relaxation and increased
filling pressures.
Thickened mitral valve leaflets. Mitral annular calcification. Mitral valve
opens normally. Mild mitral regurgitation.
Indexed LA volume is moderately abnormal (42-48 mL/m2).
Calcified aortic valve. Mild to moderate aortic stenosis. Peak gradient 27
mmHg/Mean gradient 18 mmHg -using an LVOT of 1.9 cm the estimated aortic valve
area is 1.4 cm2. Trace aortic regurgitation is seen.
Since echocardiogram March 2022, ejection fraction is decreased to 40-45%.
Acute hypoxemic respiratory failure:
-Appears to be multifactorial due to acute decompensated congestive heart failure (HFrEF) exacerbated by afib with RVR (this is the largest contributor to acute hypoxemic respiratory failure), interstitial lung disease with interstitial pneumonitis,
and possibly asthmatic bronchitis
-CT chest above, notable for mild interstitial fibrosis with bronchiectasis and interstitial pneumonitis
-Echo above, notable for ejection fraction lower than prior, global hypokinesis, mild to moderate aortic stenosis, grade 2 diastolic dysfunction
-has been on IV lasix. Transition to PO lasix
-pulm/cards following
-cont amio/eliquis
-cont duonebs
-received Solumedrol 125mg IV on 05/13/24 and then duonebs 4mg IV on 05/14/24. Case discussed with Dr. Chavez, no indication for steroids at this time.
Medically cleared for discharge, case management aware.
Original Note:
Today's Communication/Plan
-
- Transition to oral furosemide.
- Continue nebs.
- Oxygen supplementation if needed.
- PT/OT; discharge planning.
Assessment / Plan
Assessment / Plan
88-year-old female with shortness of breath
Acute hypoxemic respiratory failure
Mild interstitial fibrosis
- CT chest findings suggestive of interstitial disease.
- Oxygen supplementation and supportive care
- Continue nebulizers-DuoNebs
- Shortness of breath significantly improved now.
- Pulmonology following.
Acute on chronic heart failure likely secondary to rapid rates from A-fib
Likely heart failure with preserved or mid-range ejection fraction
- Reportedly gained 3.3 kg
- Elevated proBNP 4430
- Continue IV Lasix
- Echo with LVEF of 40-45% and stage II diastolic dysfunction.
- Cardiology evaluation
Acute asthmatic bronchitis
- IV Decadron, nebulizer treatments
- Oxygen supplementation
- Add antibiotics with yellow sputum
- Speech evaluation
- Add Doxy
- Steroids stopped by Pulm
- Pulmonary evaluation
New diagnosis of atrial fibrillation with rapid rate
- Eliquis and amiodarone started by cardiology
- Back in sinus rhythm
- Check echo
Hyponatremia
- likely secondary to volume overload
Aortic stenosis/trace MR/history of small PFO/pulmonary hypertension
- Check echo
Labile hypertension
- Watch BP. Hold other meds
Type 2 diabetes
- Accu-Cheks and sliding scale coverage
- Metformin
History of CVA
- left temporal lobe/left centrum [id number] Plavix.
- May be able to be stopped now that she is on Eliquis.
Seizure disorder
- Taken off of Keppra 3 months ago per pt
History of breast cancer with left lumpectomy and radiation with recurrence and mastectomy .
History of right carotid stenosis with stent
Restless leg syndrome
- on Requip
GERD/hiatal hernia
-PPI
Anxiety disorder
-continue as needed Xanax
VTE prophylaxis
- Eliquis
Code status
- DNR-DNI.
Anticipated Discharge: Within 24 hours
Subjective/Interval History
-
Date of Service: May 17, 2024
Objective Data
-
Labs:
Laboratory Results
05/17/24
06:00
WBC Pending
Hgb Pending
Hct Pending
Plt Count Pending
Sodium Pending
Potassium Pending
Chloride Pending
Carbon Dioxide Pending
BUN Pending
Creatinine Pending
Glucose Pending
Calcium Pending
Vital Signs:
Vital Signs
Temp Pulse Resp BP Pulse Ox
97.7 F 81 17 130/67 94
05/17/24 03:42 05/17/24 07:54 05/17/24 07:54 05/17/24 03:42 05/17/24 07:54
I&O
05/16/24 05/17/24 05/18/24
06:59 06:59 06:59
Intake Total 480 / 480 360 / 360
Output Total 900 / 1300 2300 / 2300
Balance -420 / -820 -1940 / -1940
Review of Systems
-
History Source: Patient
All other systems: Reviewed and negative
Respiratory: Reports Trouble Breathing (mild and improved)
Physical Exam
-
General: Well Developed and No Apparent Distress
HEENT: Normocephalic, Atraumatic and Moist Mucous Membranes
Respiratory: Non Labored Respirations
Cardiac: Regular Rhythm and S1/S2; Negative Murmur, Rub or Gallop
GI: Soft, Nontender, Nondistended and Normal Bowel Sounds; Negative Organomegaly
Rectal: Deferred by Provider
Musculoskeletal: No Clubbing, No Cyanosis and No Edema
Skin: Negative Rash
Neuro: Awake and Nonfocal/Grossly Intact
Psych: Calm
[2024-05-17] MEDS: PACERONE 200 MG PO (08:47)
[2024-05-17] MEDS: PLAVIX 75 MG PO (08:47)
[2024-05-17] MEDS: ELIQUIS 2.5 MG PO (08:47)
[2024-05-17] MEDS: GLUCOPHAGE 1000 MG PO (08:48)
[2024-05-17] MEDS: TOPROL XL 12.5 MG PO (08:48)
[2024-05-17] MEDS: LASIX 40 MG PO (08:49)
[2024-05-17] MEDS: VIBRAMYCIN PO (08:50)
--- NOTE | 2024-05-17 08:52 | W.PN.CARDCBS ---
Addendum entered and electronically signed by Elmo Aragon DO 05/17/24 12:48:
I saw and examined the patient.
The Phlebotomist Lab Assistant's note was reviewed and I agree with the note.
Comment:
Plan:
transition to PO lasix.
BMP 1 week
Remains sinus, cont amiodarone 200mg BID for 1 month total then reduce to 200 mg daily
Cont Eliquis with Plavix.
Cont Toprol and Lisinopril
Outpt follow up arranged
Please recall if needed.
Original Note:
Today's Communication / Plan
-
po lasix 40mg daily
BMP in 1 week
amiodarone 200mg BID for 30 days then decrease to 200mg daily
eliquis 2.5mg BID, plavix 75mg daily
toprol 12.5mg daily
lisinopril 2.5mg daily
OP cardiac follow up arranged
Impression / Plan
-
PCP: Nuzhat Gold
Can Tester: Dr. Deana Funes
Impression:
Presented 05/13/2024 with SOB and hypoxemia
Acute hypoxic respiratory insufficiency
Newly diagnosed atrial fibrillation and now with rapid ventricular rates
Acute decompensated heart failure with reduced ejection fraction by echo 05/15/24, proBNP 4430
Aortic stenosis, mild to mod
Hyponatremia
Leukocytosis
History of multiple ischemic strokes which have been felt likely to represent small vessel disease and atherosclerosis.
Autonomic dysfunction/hypotension/orthostasis treated with midodrine as needed
Patient has not been compliant with abdominal binder, compressions for known orthostatic hypotension and has not taken midodrine consistently due to hypertension
Type 2 diabetes with diabetic neuropathy
History of seizure disorder
Breast Ca with Radiation Therapy s/p Left Mastectomy
GERD/Hiatal Hernia
Carotid stenosis, right s/p stent
Hypercholesterolemia
RLS
UTIs
Hysterectomy
History of bowel resection
Back surgery
Iron Deficiency
Congenital malformation of esophagus
Postmenopausal atrophic vaginitis
Gait difficulty
Dysphagia
Former smoker
Echocardiogram April 15, 2022 finds small left ventricle with moderate left ventricular hypertrophy and ejection fraction of 60 to 65%. There is mild aortic stenosis with peak and mean gradients of 28 and 15 mmHg and calculated aortic valve area of
1.5 cm�.
3 weeks of cardiac monitoring May 2021 failed to demonstrate atrial fibrillation
Echo 05/15/2024: EF 40 to 45%, global hypokinesis, stage II diastolic dysfunction, MAC, mild MR, mild to moderate with peak/mean gradients 27/18 mmHg, KAYLEIGH 1.4 cm�, trace AR
Plan:
-Presented 05/13/2024 with SOB and hypoxemia and found to be in acute heart failure
-weight down 6 pounds overnight if accurate. now on room air. patient has been transitioned to po lasix 40mg daily for DC. was not on diuretic therapy prior to admission.
-ambulate patient and check ambulatory pulse ox
-labs pending 05/17. BMP in 1 week upon DC
-CHF education
-Follow hyponatremia in the setting of diuresis
-Was found to be in rapid atrial fibrillation on arrival as well. Spontaneously converted to sinus rhythm and was started on amiodarone 200mg BID for 30 days then 200mg daily for rhythm control and Eliquis 2.5mg BID
-Echocardiogram with newly reduced EF of 40 to 45%, mild to moderate
-Toprol 12.5 mg daily added this admission. will attempt to add lisinopril 2.5 daily today. consider addition of aldactone as OP as able
-She is not a candidate for SGLT2 inhibitors given history of UTIs
-Suspected cardiomyopathy secondary to rapid atrial fibrillation. Troponin negative x 1. Severe coronary artery calcification noted by chest CT. Would consider for outpatient ischemic evaluation
-Chest CT with evidence of interstitial fibrosis as well as possible interstitial pneumonitis. pulm following
-History of strokes on chronic Plavix
-OP cardiac follow up arranged
-ok for DC today from cardiac standpoint
HPI 05/14/2024:
88-year-old woman living at [facility] who presented to the emergency department with acute worsening of baseline shortness of breath over the preceding 3 to 4 hours. Emergency services noted desaturation of 85%. Acutely she is found to be
in atrial fibrillation with rapid ventricular rate of 130s to 150s. Atrial fibrillation appears to be a newly documented diagnosis. Additional medical history is that she was placed on doxycycline approximately 2 weeks ago for a presumed pulmonary
infection.
On presentation she is found to be hyponatremic with sodium of 132, BUN and creatinine 15 and 0.6. proBNP is elevated at 4430 and troponin I is undetectable.
She was administered 20 mg of Lasix intravenously in the emergency department.
Progress Note - Can Tester
Subjective
Date of Service: May 17, 2024
Tearful, wants to go home. Reports breathing improved.
Objective
Labs:
Labs
Hgb 11.0 g/dL (12.0-16.0) L 05/16/24 07:43
Hct 31.8 % (37.0-47.0) L 05/16/24 07:43
Plt Count 230 10^3/uL (130-400) 05/16/24 07:43
APTT 30.1 Sec (23.4-35.0) 05/14/24 20:47
Sodium 129 mmol/L (135-145) L 05/16/24 07:43
Potassium 4.6 mmol/L (3.5-5.1) 05/16/24 07:43
BUN 33 mg/dl (7-17) H 05/16/24 07:43
Creatinine 0.8 mg/dL (0.6-1.0) 05/16/24 07:43
Glucose 127 mg/dl (70-99) H 05/16/24 07:43
Vital Signs and I&O:
Vital Signs
Temp Pulse Resp BP Pulse Ox
97.7 F 81 17 130/67 94
05/17/24 03:42 05/17/24 07:54 05/17/24 07:54 05/17/24 03:42 05/17/24 07:54
Vital Signs
Temp Pulse Resp BP Pulse Ox
97.7 F 81 17 130/67 94
05/17/24 03:42 05/17/24 07:54 05/17/24 07:54 05/17/24 03:42 05/17/24 07:54
Intake & Output
05/15/24 05/16/24 05/17/24 05/18/24
07:59 07:59 07:59 07:59
Intake Total 480 / 480 360 / 360
Output Total 1100 / 1100 1300 / 1300 1900 / 1900
Balance -1100 / -1100 -820 / -820 -1540 / -1540
Physical Exam
Physical Exam
GEN: No distress, awake, alert, oriented x3, tearful
HEENT: supple, anicteric, mmm, EOMI
LUNGS: CTA B/L, no wheezes
CV: Reg, S1/S2, 1/6 syst LSB
ABD: soft, BS+, NT/ND
EXT: No cyanosis, clubbing, edema
NEURO: Gross non-focal
SKIN: Warm, pink, dry. No rash. Scattered ecchymoses of bilateral upper extremity
--- NOTE | 2024-05-17 08:59 | W.PN.PUL.V3 ---
Today's Communication / Plan
-
Wean oxygen
Gentle diuresis
Outpatient pulmonary follow-up with PFTs especially in light of amiodarone load and subsequent maintenance
Assessment
-
Patient is an 88-year-old female with previous history of hypertension, diabetes, history of CVA, history of breast cancer, GERD presenting from [facility] via EMS for evaluation of shortness of breath and hypoxemia. O2 con was reportedly
85% on room air. She was noted to have inspiratory and expiratory wheezing on exam and was in A-fib with RVR 130s to 150s as well. Admitted to 05/14/24. CXR showing increased vascular markings suggesting heart failure superimposed on possible
underlying chronic lung disease. We are asked for eval.
Acute hypoxic respiratory failure, new onset
Acute CHF exacerbation-reduced EF
Afib with RVR
Wheezing/SOB
Possible underlying chronic ILD-suspect very mild per CT 05/15/2024
Hyperglycemia
Hyponatremia
Leukocytosis
Mild anemia-hemoglobin 11.5
Conditions present prior to admission:
HTN
NIDDM
Breast Ca with Radiation Therapy s/p Left Mastectomy
GERD/Hiatal Hernia
Carotid stenosis, right s/p stent
History of seizures
Hypercholesterolemia
History of stroke 2020
RLS
UTIs
Hysterectomy
History of bowel resection
Back surgery
Iron Deficiency
Congenital malformation of esophagus
Postmenopausal atrophic vaginitis
Gait difficulty
Dysphagia
Former smoker
Moderate aortic stenosis
Diastolic dysfunction
Reduced EF-40%-was 60%
Mild bronchiectasis
Plan
Respiratory decompensation likely due to fluid overload/CHF and less likely due to mild interstitial pulmonary fibrosis
Pulmonary status improved with diuresis and nebulizers
Continue supplemental oxygen-attempt to wean
Assess discharge supplemental oxygen needs
Aspiration precautions per protocol
Speech therapy evaluation 05/14/2014 noted-recommending video swallow, regular diet thin liquids and consider GI consultation
Chest x-ray 05/15/2024-interstitial fibrosis suspected with superimposed pneumonitis or CHF also possibility
Continue nebulizers-DuoNebs
Continue to observe off steroids-reviewed with primary team
Suspected mild interstitial fibrosis
CT chest 05/15/2024-mild reticular interstitial thickening at the lung bases with mild basilar bronchiectasis suggesting mild interstitial fibrosis, superimposed interstitial pneumonitis suspected with small bilateral pleural effusions and severe
coronary artery calcifications and large hiatal hernia
Prior history of lung disease is not noted
No prior known history of lung disease, nonsmoker. Trivial use socially in her youth for a total of 5 years
COPD history in her father who was a smoker
Denies exposure history
Cardiology following patient-correspondence reviewed
Diuresis as tolerated
Monitor renal function, electrolytes, intake/output, lower extremity edema and weight
Replace electrolytes as needed
Echocardiogram 05/15/2024-EF 40-45%, stage II diastolic dysfunction, mild mitral regurgitation, moderate aortic stenosis
Atrial fibrillation rate control
Now on amiodarone 200 mg twice daily-monitor for toxicity
Eliquis continues
DVT prophylaxis-on Eliquis
Nutrition
Aspiration precautions
PT/OT
Outpatient pulmonary sxbpec-kg-bjmi need PFTs especially in light of amiodarone load and maintenance going forward
Diagnostic Data
Chest X-Ray: 05/14/24- Suspect diffuse interstitial pneumonitis and component of pulmonary vascular congestion. Cannot rule out superimposed left basilar pneumonia and/or underlying chronic interstitial changes.
09/26/23- No acute disease of the chest. Large hiatal hernia. Enlarged.
CT chest 05/15/2024-mild reticular interstitial thickening at the lung bases with mild basilar bronchiectasis suggesting mild interstitial fibrosis, superimposed interstitial pneumonitis suspected with small bilateral pleural effusions and severe
coronary artery calcifications and large hiatal hernia
Echo: 04/23/22- 1. Small left ventricle with moderate left ventricular hypertrophy and preserved systolic function, EF 60-65%
2. Thickened mitral leaflets, mitral annular calcification, trace mitral regurgitation, and left atrial dilatation
3. Mild aortic stenosis, peak/mean gradient 28/15 mmHg, aortic valve area 1.5 cm2
4. Normal right heart with mild pulm hypertension, 36 mmHg systolic
5. Small patent foramen ovale
Echocardiogram 05/15/2024-EF 40-45%, stage II diastolic dysfunction, mild mitral regurgitation, moderate aortic stenosis
Subjective Data
-
Date of Service:
Date of Service: May 17, 2024
Chief Complaint: Pulmonary Follow Up and Dyspnea Follow Up
Subjective:
Feels better, less short of breath, no chest pain, pleurisy, productive cough, or abdominal pain
Review of Systems
General: Other (Per HPI)
Objective Data
Data Reviewed
Vital Signs / I&O:
Vital Signs
Temp Pulse Resp BP Pulse Ox
97.7 F 81 17 130/67 94
05/17/24 03:42 05/17/24 07:54 05/17/24 07:54 05/17/24 03:42 05/17/24 07:54
Intake and Output
05/16/24 05/17/24 05/18/24
06:59 06:59 06:59
Intake Total 480 / 480 360 / 360
Output Total 900 / 1300 2300 / 2300
Balance -420 / -820 -1940 / -1940
SaO2: 94
Nasal Cannula flow liters per minute: 2
Physical Exam
General: Respiratory Distress (n) and Comfortable
HEENT: Normocephalic, Anicteric and Moist Mucous Membranes
Cardiovascular: Regular Rhythm
Respiratory: Wheeze (Forced expiratory), Crackles (Basilar), Rhonchi (Few expiratory), Non-Labored Respirations, Accessory Resp Muscle Use (n) and Stridor (n)
GI: Soft, Non Distended and Non Tender
Neurology: Awake, Alert and No Motor Deficits
Skin: Warm, Good Color, Cyanosis (n), Jaundice (n) and Rash (n)
[2024-05-17] MEDS: ZESTRIL 2.5 MG PO (09:04)
[2024-05-17 09:45] LABS: Hematocrit 37.1 % (37.0-47.0); Hemoglobin 12.6 g/dL (12.0-16.0); Mean Corpuscular Hgb 30.4 pg (27.0-31.0); Mean Corpuscular Volume 89.6 fL (81.0-99.0); Mean Platelet Volume 10.3 fL (7.4-10.4); Platelet Count 263 10^3/uL (130-400); Red Blood Cell Count 4.14 10^6/uL (4.20-5.40); White Blood Cell Count 9.3 10^3/uL (4.8-10.8)
--- NOTE | 2024-05-17 09:48 | W.DCSUMMARY ---
Addendum entered and electronically signed by Greyson Sarkar MD 05/17/24 14:37:
Read, reviewed, and agree. See same day progress note for additional details.
Original Note:
Discharge Summary
Discharge Data
Date of Admission: 05/14/24
Date of Discharge: 05/17/24
-
Pending Results: No
Hospital Course
Primary discharge diagnosis
* Acute on chronic heart failure with mid-range ejection fraction
Secondary discharge diagnoses
- Acute hypoxemic respiratory failure
- Mild interstitial fibrosis
- Atrial fibrillation with rapid rate
- Hyponatremia
- Aortic stenosis
- Trace mitral regurgitation
- Pulmonary hypertension
- Essential hypertension
- Restless leg syndrome
- Gastroesophageal reflux disorder
- Hiatal hernia
- Generalized anxiety disorder
- History of cerebrovascular accident
- History of seizure disorder
- History of breast cancer with left lumpectomy and radiation with recurrence and mastectomy
- History of right carotid stenosis with stent
Hospital course
Alexandra Easley, age 88, came to the emergency on 05-14-24 with shortness of breath and hypoxia. Her presentation, blood work and imaging were indicative of decompensated heart failure, and she received diuresis. Her symptoms persisted and she got a CT
chest which showed mild interstitial fibrosis. She continued to get diuresis and nebulizers, and continued to feel better - was eventually weaned off oxygen. She was evaluated by cardiology and pulmonology at the visit. Her blood work remained
stable throughout her visit and vitals within normal limits. On the day of the discharge, she was feeling comfortable on room air and had not required oxygen supplementation. At discharge, apixaban and amiodarone were transmitted to the pharmacy..
Amiodarone 200 mg twice a day for the first month, and then once a day from then on. Lisinopril and metoprolol were also started. No further role for steroids, per pulmonology but recommended to follow-up with them outpatient for function testing.
Follow-up with primary and cardiology in less than 1 week.
Discharge Plan
-
Patient Disposition: Home with Home Care
Discharge Diagnosis/Procedures: Acute decompensated heart failure with reduced ejection fraction
Acute hypoxic respiratory insufficiency
Mild interstitial fibrosis
Newly diagnosed atrial fibrillation and now with rapid ventricular rates
Condition: Good
Diet: 2 Gram Sodium, Diabetic, Carb Controlled and Restrict fluids to 48 oz
Activity: As tolerated
Driving Restrictions: No driving
Bathing Restrictions: None
Blood Work: BMP in 1 week, script from PCP
Other Services: VN, PT and OT
Specialty Instructions: Weigh Daily- Call MD for wt gain/loss 3 lbs overnight/5 lbs in 1 week
Activity Restrictions/Additional Instructions:
Follow-up with GI for evaluation of difficulty swallowing
Instructions: *[facility] Heart Failure Instructions
Referrals:
Kiana Mckeon DO [Active] - in two to three weeks
(Or [facility]ENUE ATTENDANT
PFT and 6MWT)
Deana Funes DO [Active] - 05/22/24 3:40 pm (You have a cardiology follow up appointment at the [place] office. Please call with questions. )
Nuzhat Zhu DO [Family Provider] - in less than 1 week
Additional Discharge Medication Instructions: continue amiodarone 200mg twice daily for 30 days then decrease to 200mg daily!
Prescriptions:
New
apixaban 2.5 mg tablet
2.5 mg PO BID 30 Days Qty: 60 3RF
amiodarone 200 mg tablet
200 mg PO BID 30 Days Qty: 60 0RF
Rx Instructions:
TWICE A DAY for 30 days; ONCE a day AFTER that.
albuterol sulfate 90 mcg/actuation HFA aerosol inhaler
2 puff inhalation Q6H PRN (Reason: shortness of breath or wheezing) 30 Days Qty: 8.5 3RF
metoprolol succinate 25 mg tablet extended release 24 hr
12.5 mg PO DAILY 30 Days Qty: 15 3RF
lisinopril 2.5 mg tablet
2.5 mg PO DAILY 30 Days Qty: 30 3RF
Continued
acetaminophen 325 MG tablet
650 mg PO Q4HPRN PRN (Reason: DOUGLAS, mild pain, or temp >100.4F) 0RF
sennosides [senna] 8.6 MG tablet
8.6 mg PO BID PRN (Reason: constipation)
Patient Comments:
Not working very well
pantoprazole 40 MG tablet,delayed release (DR/EC)
20 mg PO DAILY
PreserVision AREDS 1 CAP capsule
1 cap PO BID
metformin 750 mg tablet extended release 24 hr
750 mg PO BID
alprazolam 0.5 mg tablet
0.5 mg PO BIDPRN PRN (Reason: Anxiety)
clopidogrel 75 MG tablet
75 mg PO DAILY
Discharge Orders:
Discharge Patient (As Directed); Ordered 05/17/24
Ordered By: Greyson Sarkar
Discharge Date and Time
Print Language: LITHUANIAN
--- NOTE | 2024-05-17 10:18 | CM ---
Addendum entered by Elke Mullen 05/17/24 13:11:
Spoke with Jesika at Acute care, patients credit card information given, cost $105. supervisor clam bed verified for 3 pm.
Addendum entered by Elke Mullen 05/17/24 12:22:
Left VM for Francisca and Don re patients willingness to pay for WC Van, await TCB.
Addendum entered by Elke Mullen 05/17/24 11:44:
Spoke with patient bedside.
Patient agreeable to WC van, will pay via credit card.
IMM completed.
Original Note:
Patient for transfer back to [facility] for Respite care.
Spoke with daughter Parvin, out of state right now.
Please contact Parvin's daughter Candi Resendiz for updates, P# [phone].
Transportation should be provided by patients son Trevor p# [phone] or Trevor's spouse Francisca P# [phone].
Francisca not sure if spouse can transport. She will call me back. Francisca is aware of $105 cost for WC Van. Will await Francisca's call back before scheduling WC van. CM left vm for Don.
Spoke with Zafar-nurse from the [facility], PT notes reviewed via phone and faxed. She feels patient is at baseline.
[facility]
Report# [phone], ask for Zafar or Ravi
[2024-05-17 10:19] LABS: Blood Urea Nitrogen 24 mg/dl (7-17); Calcium 9.8 mg/dl (8.4-10.2); Carbon Dioxide 30 mmol/L (22-30); Chloride 92 mmol/L (98-107); Estimated Creatinine Clearance 46 ml/min; Glucose 158 mg/dl (70-99); Sodium 130 mmol/L (135-145); eGFR > 60.00
[2024-05-17 11:17] VITALS: BP 109/58
[2024-05-17 11:55] LABS: Glucose - Point of Care 156 mg/dl (70-99)
[2024-05-17] MEDS: NOVOLOG FLEXPEN-LOW RESISTANCE 1 UNITS SC (11:55)
[2024-05-17] MEDS: DUONEB INH ×2 (12:10→15:29)
[2024-05-17 14:14] VITALS: BP 138/73
== END 2024-05-17 15:39 | disposition home health service (06) | DRG 291 ==
LOC: 4 EAST ACU 01:48
PROVIDERS: Hospitalist; Student in an Organized Health Care Education/Training Program; ADMITTING PHYSICIAN Internal Medicine; ATTENDING PHYSICIAN Internal Medicine; CONSULT PHYSICIAN Internal Medicine; CONSULT PHYSICIAN Internal Medicine Cardiovascular Disease; EMERGENCY PHYSICIAN Emergency Medicine; FAMILY PHYSICIAN Family Medicine
PROC: 5A19054 Respiratory Ventilation, Single, Nonmechanical (ICD-10-PCS; 2024-05-13)
DX: I11.0 Hypertensive heart disease with heart failure (principal); I50.43 Acute on chronic combined systolic (congestive) and diastolic (congestive) heart failure; J96.01 Acute respiratory failure with hypoxia; E87.1 Hypo-osmolality and hyponatremia; Q39.9 Congenital malformation of esophagus, unspecified; Q21.12 Patent foramen ovale; I27.20 Pulmonary hypertension, unspecified; E11.40 Type 2 diabetes mellitus with diabetic neuropathy, unspecified; E11.65 Type 2 diabetes mellitus with hyperglycemia; I65.21 Occlusion and stenosis of right carotid artery; Z95.828 Presence of other vascular implants and grafts; I35.0 Nonrheumatic aortic (valve) stenosis; G40.909 Epilepsy, unspecified, not intractable, without status epilepticus; G25.81 Restless legs syndrome; I95.9 Hypotension, unspecified; J20.9 Acute bronchitis, unspecified; I48.91 Unspecified atrial fibrillation; Z87.01 Personal history of pneumonia (recurrent); F41.1 Generalized anxiety disorder; E78.00 Pure hypercholesterolemia, unspecified; E61.1 Iron deficiency; K21.9 Gastro-esophageal reflux disease without esophagitis; K44.9 Diaphragmatic hernia without obstruction or gangrene; K59.00 Constipation, unspecified; N95.2 Postmenopausal atrophic vaginitis; R13.10 Dysphagia, unspecified; R26.9 Unspecified abnormalities of gait and mobility; Z79.02 Long term (current) use of antithrombotics/antiplatelets; Z79.84 Long term (current) use of oral hypoglycemic drugs; Z79.899 Other long term (current) drug therapy; Z87.891 Personal history of nicotine dependence; Z85.3 Personal history of malignant neoplasm of breast; Z92.3 Personal history of irradiation; Z90.12 Acquired absence of left breast and nipple; Z86.73 Personal history of transient ischemic attack (TIA), and cerebral infarction without residual deficits; Z88.3 Allergy status to other anti-infective agents; Z88.5 Allergy status to narcotic agent; Z90.49 Acquired absence of other specified parts of digestive tract; Z90.710 Acquired absence of both cervix and uterus
CPT/HCPCS: 71045; 71250; 74230; 80048; 80053; 82947; 82962; 83735; 83880; 83930; 83935; 84300; 84443; 84484; 85025; 85027; 85730; 87811; 92526; 92610; 92611; 93005; 93306; 94640; 96361; 96365; 96367; 96375; 97116; 97163; 97167; 97530; 97535; 99291

== ENCOUNTER 2024-05-23 20:05 | Inpatient (IN) | payer OTHER, SELFPAY ==
[2024-05-23] VITALS (18 sets, daily range): BP systolic 87–182; BP diastolic 43–127; PULSE 2–107; BMI 20.2; BMI 20.5
[2024-05-23 16:09] LABS: % Basophils 0.5 % (0-2); % Eosinophils 0.8 % (0-6); % Immature Granulocytes 0.3 % (0-0.5); % Lymphocytes 13.4 % (20.5-51.1); % Monocytes 14.5 % (1.7-9.3); % Neutrophils 70.5 % (42.2-75.2); Absolute Eosinophils 0.1 10^3/uL (0-0.7); Absolute Monocytes 1.1 10^3/uL (0.1-0.6); Absolute Neutrophils 5.4 10^3/uL (1.4-6.5); Hematocrit 37.3 % (37.0-47.0); Hemoglobin 12.7 g/dL (12.0-16.0); Mean Corpuscular Hgb 30.2 pg (27.0-31.0); Mean Corpuscular Volume 88.6 fL (81.0-99.0); Mean Platelet Volume 9.6 fL (7.4-10.4); Nucleated Red Blood Cells % 0 %; Platelet Count 272 10^3/uL (130-400); Red Blood Cell Count 4.21 10^6/uL (4.20-5.40); White Blood Cell Count 7.6 10^3/uL (4.8-10.8)
[2024-05-23 16:29] LABS: ALT (SGPT) 13 U/L (0-35); AST (SGOT) 37 U/L (14-36); Albumin 4.6 g/dl (3.5-5.0); Alkaline Phosphatase 128 U/L (38-126); Blood Urea Nitrogen 12 mg/dl (7-17); Calcium 9.5 mg/dl (8.4-10.2); Carbon Dioxide 26 mmol/L (22-30); Chloride 95 mmol/L (98-107); Glucose 141 mg/dl (70-99); Potassium 4.7 mmol/L (3.5-5.1); Sodium 133 mmol/L (135-145); Total Bilirubin 0.4 mg/dl (0.2-1.3); Total Protein 7.3 g/dl (6.3-8.2); eGFR > 60.00
[2024-05-23 17:14] LABS: D-Dimer 0.69 ug/mlFEU (0.00-0.50)
--- NOTE | 2024-05-23 17:17 | ED.GENMED ---
History of Present Illness
General
Chief Complaint: Dizziness
Source: patient
Exam Limitations: none
Time Seen by Provider: 05/23/24 17:11
Nursing documentation reviewed up to this point in time: agreed with
History of Present Illness
History of Present Illness:
Patient is an 88-year-old female that presented to room 6. I was called to the room when patient was brought back from triage to ED treatment area due to patient being short of breath. Patient was triaged and triage note initially states the
patient was dizzy since last Wednesday when she was discharged and never really got better. Upon presentation patient found to be in respiratory distress very tachypneic tachycardic reports she is very short of breath and suddenly could not
breathe. She denies any chest pain. patient was admitted May 14 with shortness of breath and hypoxia she was found to be in decompensated heart failure and was diuresed and CAT scan was done which showed interstitial fibrosis. She was treated
with diuresis and nebulizers. She was discharged on Eliquis and amiodarone. She was not discharged on Lasix. She was started on Eliquis and amiodarone because she was found to be in rapid A-fib during admission as well. She did convert to normal
sinus rhythm during admission.
173: Daughter called and stated that stock parts fabricator added lasix yesterday but pt did not start it.
Past History
Past History
ED Past Medical History: Cancer (breast, with radiation therapy), CVA (April 2021), HTN (labile), NIDDM, Seizures (Possible seizures, abnormal EEG), Psychiatric (major depression), Other (iron deficiency anemia, aortic stenosis, pulmonary
hypertension, seizure) and Other (hiatal hernia)
ED Past Surgical History: Appendectomy, Gynecological (hysterectomy) and Other (left-sided mastectomy 2017, right CEA)
Social History
Tobacco: Other (distant history)
Alcohol: None
Drug: None
Personal:
Living: with family
Employment: Retired
Family History
Family History: Other (reviewed and noncontributory)
Review of Systems
Review of Systems
Allergies reviewed?: Yes
All Other Systems: ROS reviewed and negative except as documented in HPI and ROS
Constitutional: Reports no symptoms; Denies fever, fatigue or chills
Respiratory: Reports trouble breathing
Cardiac: Denies chest pain
ABD/GI: Reports no symptoms
: Reports no symptoms
Musculoskeletal: Reports no symptoms
Skin: Reports no symptoms
Psychiatric: Reports no symptoms
Phy Exam
General Physical Exam
General Presentation: moderate distress
General age: appears stated age
General Skin: warm and dry
General Habitus: normal
General Mental: alert
General Hydration: appears well hydrated
Cardiovascular Exam
Cardiovascular Exam: tachycardia
Pulmonary Exam
Pulmonary Exam: other (Tachypneic in respiratory distress wheezing questionable stridor)
Neurological Exam
Neurological Exam: alert and oriented x3
Musculoskeletal Exam
Musculoskeletal Exam: full ROM and other (no l/e swelling )
Skin Exam
Skin Exam: normal color and warm/dry
Psychiatric Exam
Psychiatric Exam: normal mood/affect
Course
Orders/Labs/Results
Orders:
Orders
05/23/24 Dinner
Cholesterol Lowering
Cholesterol Lowering: Sodium, 2 Gram
05/23/24 15:35
ECG [Electrocardiogram (*1)] Urgent
Reason for Study: Vertigo / Dizzy
05/23/24 15:36
EKG- Treatment ONCE
05/23/24 15:56
Complete Blood Count/With Diff Urgent
Comprehensive Metabolic Panel Urgent
05/23/24 16:51
EKG [Electrocardiogram (*1)] Stat
Reason for Study: Shortness of Breath
EKG- Treatment ONCE
05/23/24 16:52
Electrocardiogram (*1) Urgent
Reason for Study: Shortness of Breath
EKG- Treatment ONCE
Ipratropium/Albuterol Sulfate [Duoneb] 3 ml .ROUTE .STK-MED ONE
05/23/24 16:54
Furosemide [Lasix] 40 mg .ROUTE .STK-MED ONE
05/23/24 16:55
D-Dimer Urgent
NT-proBNP Urgent
Troponin I Urgent
Portable Chest Xray [CR Chest Portable - 1 View] Stat
Comment:
Reason For Exam: sob
Reason Study Needs to be Portable: Unable to Transport
05/23/24 17:12
Albuterol Nebs [Ventolin Nebules] 2.5 mg INH R NOW STA
Furosemide [Lasix] 40 mg IV NOW STA
05/23/24 17:13
Albuterol Sulfate [Ventolin Nebules] 7.5 mg INH R NOW STA
Dexamethasone Sod Phosphate [Decadron] 10 mg IV NOW STA
Ipratropium Nebs [Atrovent Nebules] 1 mg INH R NOW STA
05/23/24 17:39
Racepinephrine [Vaponefrin Nebs] 0.5 ml .ROUTE .STK-MED ONE
05/23/24 17:46
Midazolam HCl [Versed] 2 mg IV NOW STA
05/23/24 17:57
Venous Blood Gas Urgent
%Oxygen/Room Air: nrb
05/23/24 18:01
Magnesium Sulfate 2 Gram/50 ml [Magnesium Sulfate] 2 gram in 50 ml IV NOW
05/23/24 18:05
Cefepime HCl [Maxipime] 1,000 mg IV NOW STA
05/23/24 18:06
Vancomycin 1 Gram/200 ml [Vancocin] 1 gram in 200 ml IV NOW
05/23/24 18:15
Sterile Water [Sterile Water For Injection] 10 ml .ROUTE .STK-MED ONE
05/23/24 19:03
0.9% Sodium Chloride 500 ml [Nss] 500 ml IV BOLUS
05/23/24 19:14
Admit/Transfer Patient As Directed
Co-Sign Provider:
Level of Care: Inpatient admission
Assign to:: IMU- Intermediate Care
Physician / Group: ko
Diagnosis: hypoxic/hypercarbic respiratory failure
Reason for Hospitalization: Appendectomy, Gynecological (hysterectomy) and Other (left-sided mastectomy 2018,
right CEA)
Expected length of stay greater than two midnights?: Yes
ELOS- Estimated Length of Stay in days: 2
I certify the patient meets the requirements for IP care: Yes
05/23/24 19:15
PRN Pain Medication Management As Directed
May give lesser potent ordered pain med per pt: Yes
preference::
Protocol:: Medication orders for pain may be administered in a
manner that supports deferring to patient preference
when the pt is:
- Requesting an ordered lesser potent pain medication.
Least to most potent pain medications are defined
as: acetaminophen < NSAID < tramadol < opioids
(morphine, oxycodone, hydromorphone).
- Requesting a lesser dose of the same medication IF
ORDERED.
- Requesting a less intrusive route of administration
if both routes are prescribed by the provider (PO <
IV).
05/23/24 19:16
Code Status As Directed
Resuscitation Status: Do not resuscitate
Reached after discussion with pt or family/Healthcare POA: Yes
DNR Bracelet Application ONCE
05/23/24 21:06
Acetaminophen [Tylenol] 650 mg PO Q4HPRN PRN
Alprazolam [Xanax] 0.5 mg PO BIDPRN PRN
Amiodarone [Pacerone] 200 mg PO BID
Apixaban [Eliquis] 2.5 mg PO BID
Ipratropium/Albuterol Sulfate [Duoneb] 3 ml INH R QID
Metformin Extended Release [Glucophage Xr Extended Release] 750 mg PO BID AT 0800,1700
Sennosides [Senokot] 8.6 mg PO BIDPRN PRN
05/23/24 21:06
VTE Contraindication Routine
VTE Mechanical Device Contraindication: Medical Contraindication
Pharmocologic Contraindication: Medical Contraindication
Activity As Directed
Activity Level: As Tolerated
Intake/ Output As Directed
Frequency: q12h
Patient Education As Directed
Type: CHF folder
Comment: give on admission. Document in Interdisciplinary Education record
Sleep Apnea Assessment by RN As Directed
Comment:
Physician Instructions:
Vital Signs As Directed
Frequency: Other
Additional Instructions:: Q12 or per unit guidelines if more frequent.
Weight As Directed
Frequency: Daily
Type of Scale: Standing Scale
Comment: Daily morning weight. If unable to stand, use balanced bed scale.
Weight As Directed
Frequency: Once
Type of Scale: Standing Scale
Comment: Upon Admission. If unable to stand, use balanced bed scale.
Pulse Ox/cont/shift [RESP] Routine
Quantity: 1
Special Instructions: Daily pulse oximetry at rest. If greater than 92% at rest also obtain pulse oximetry
while ambulating as tolerated.
05/23/24 21:45
Vit C/Vit E/Lutein/Min/[place]-3 [Ocuvite Softgel] 1 cap PO BID
05/23/24 21:47
Cefepime HCl [Maxipime] 1,000 mg IV NOW STA
05/24/24 06:00
Complete Blood Count/With Diff IN AM
Comprehensive Metabolic Panel IN AM
Dexamethasone Sod Phosphate [Decadron] 4 mg IV Q12H
05/24/24 08:00
Clopidogrel Bisulfate [Plavix] 75 mg PO DAILY
Pantoprazole [Protonix] 20 mg PO DAILY
Abnormal Lab Results
05/23/24 05/23/24 05/23/24
15:56 16:55 17:57
RDW 15.0 H %
(11.5-14.5)
Absolute Lymphs (auto) 1.0 L 10^3/uL
(1.2-3.4)
Absolute Monos (auto) 1.1 H 10^3/uL
(0.1-0.6)
Lymphocytes % 13.4 L %
(20.5-51.1)
Monocytes % 14.5 H %
(1.7-9.3)
D-Dimer 0.69 H ug/mlFEU
(0.00-0.50)
VBG pH 7.27 L
(7.32-7.43)
VBG pCO2 54 H mmHg
(35-48)
VBG pO2 59 H mmHg
(30-50)
Sodium 133 L mmol/L
(135-145)
Chloride 95 L mmol/L
(98-107)
Glucose 141 H mg/dl
(70-99)
AST 37 H U/L
(14-36)
Alkaline Phosphatase 128 H U/L
(38-126)
Troponin I 0.041 H* ng/ml
05/23/24 15:56
05/23/24 15:56
Vital Signs
Initial and Last Documented VS:
Initial Vital Signs
Temp Pulse Resp BP Pulse Ox
99.0 F 89 18 167/109 92
05/23/24 15:32 05/23/24 15:32 05/23/24 15:32 05/23/24 15:32 05/23/24 15:32
Last Documented Vital Signs
Temp Pulse Resp BP Pulse Ox
97.5 F 81 16 119/53 94
05/23/24 23:21 05/23/24 23:15 05/23/24 23:15 05/23/24 22:00 05/23/24 23:21
Laboratory Technologist consulted with Physician
Laboratory Technologist consulted with physician?: Yes
Name of Physician Consulted: Neelam
MDM/Problems Addressed
Differential Diagnosis Includes:
Not limited to acute respite distress congestive heart failure, exacerbation of interstitial fibrosis
MDM/Problems Addressed:
As documented patient is an 88-year female who presented to the treatment area in respiratory distress audible wheezing tachypnea tachycardia. Patient was recently discharged a week ago has history of CHF was found to be in rapid A-fib at the time
and chronic interstitial lung disease. She was DC'd on apixaban and amiodarone. She was given a stat nebulized albuterol stat portable chest x-ray shows more fibrosis no acute infiltrate or acute CHF. Respiratory was called patient was started on
BiPAP. Patient was given Decadron and Lasix. Patient was eval by ED attending.
Updated note patient continues with tachypnea wheezing questionable or stridor not tolerating BiPAP. BiPAP removed patient was given racemic epi via mask patient is anxious will give 2 mg of Versed. I did speak with daughter daughter reports
patient is a DNR. Patient was asked directly and does not want to be intubated. Will continue to treat. will obtain VBG. trop elevated however no chest pain likely demand ischemia no white count.
VBG shows low pH of 7.27 CO2 54 pO2 59. As discussed with ED attending patient anxious on BiPAP machine given small dose of Versed and on reevaluation now much better work of breathing as last blood pressure however lower in the 90s 500 mL saline
bolus was given.
Patient was admitted to the hospitalist service
Family at bedside
Chronic conditions affecting care:
CHF hypertension interstitial fibrosis
*Radiology
Radiology exam reviewed: radiology read reviewed
*Pulse Oximetry
Patient hypoxic: yes
*EKG
Interpreted by ED Provider?: Yes
*Critical Care Note
Total Time (30-74mins, 75-104mins- exclusive of procedures): Not Applicable
ED Attending Note
-
Portions of this chart may have been created with voice recognition software.� Occasional wrong word or��sound alike� substitutions may have occurred due to the inherent limitations of voice recognition software.
Discharge Plan
Departure
Patient Disposition: Admit
Date of Disposition: 05/23/24
Time of Disposition: 18:12
Admit to: ICU
Admit to doctor: hospitalist
Presentation/result/management discussed w/ accepting MD/DO: Hospitalist
Patient with high blood pressure during this ER visit?: Yes
Condition: Fair
Covid-19: Not Applicable
Discharge Problem:
Acute respiratory distress
Interventions
Interventions:
*Risk Screen - Suicide Last Done: 05/23/24 17:08
*General Assessment Last Done: 05/23/24 17:08
*Neglect/Abuse Screening Last Done: 05/23/24 17:08
ED- Fall Risk Assessment Last Done: 05/23/24 17:08
*ED COVID-19 Vaccine History Last Done: 05/23/24 17:08
*Nursing Disposition Last Done: 05/23/24 20:54
ED- Neurological Assessment Last Done: 05/23/24 17:08
ED- Cardiac Assessment Last Done: 05/23/24 17:08
Discharge Date and Time
Discharge Date/Time: 05/23/24 20:54
[2024-05-23] MEDS: VENTOLIN NEBULES 2.5 MG INH (17:20)
[2024-05-23] MEDS: LASIX 40 MG IV (17:20)
[2024-05-23] MEDS: DECADRON 10 MG IV (17:22)
[2024-05-23 17:42] LABS: NT-proBNP 6840 pg/ml; Troponin I 0.041 ng/ml
[2024-05-23] MEDS: VERSED 2 MG IV (18:04)
[2024-05-23] MEDS: MAGNESIUM SULFATE 50 IV (18:07)
[2024-05-23] MEDS: ATROVENT NEBULES 1 MG INH (18:11)
[2024-05-23] MEDS: VENTOLIN NEBULES 7.5 MG INH (18:12)
[2024-05-23 18:15] LABS: Venous Blood Gas B.E. -2.9 mmol/L (-4 to +4); Venous Blood Gas HCO3 24.8 mmol/L (22-27); Venous Blood Gas O2 Sat % 84.6 %; Venous Blood Gas pCO2 54 mmHg (35-48); Venous Blood Gas pH 7.27 (7.32-7.43); Venous Blood Gas pO2 59 mmHg (30-50)
[2024-05-23] MEDS: MAXIPIME 1000 MG IV ×2 (18:27→22:08)
[2024-05-23] MEDS: VANCOCIN 200 IV (18:35)
[2024-05-23] MEDS: NSS 500 IV (19:11)
--- NOTE | 2024-05-23 19:20 | HPS.HSE ---
Family Physician
-
Family Physician: Nuzhat Zhu
Chief Complaint
-
shortness of breath
History of Present Illness
88-year-old female past medical history of chronic HFpEF/HfmrEF, mild interstitial fibrosis, atrial fibrillation, aortic stenosis, asthma, hyponatremia, labile hypertension, type 2 diabetes, CVA, seizure disorder, breast cancer with left
lumpectomy/radiation with recurrence of mastectomy, right carotid stenosis with stent, restless leg syndrome, GERD/hiatal hernia, anxiety disorder, seizure disorder, presenting with fatigue and dizziness since recent admission.
Patient was recently admitted from 05/14 to 05/17 for shortness of breath and hypoxia. She was treated for heart failure with diuresis and nebulizers for pulmonary fibrosis. She was also found to be in new onset atrial fibrillation and started on
Eliquis and amiodarone.
Patient was dizzy since discharge and never got better. She developed acute onset of shortness of breath today. Upon presentation today she was found to be in respiratory distress and very tachypneic tachycardic. She developed shortness of breath
and could not breathe. She denies any chest pain. No fevers or chills. She has chronic cough at baseline. She saw Dr. Funes yesterday who started Lasix due to pound weight gain since discharge.
Patient is former smoker. She does not drink alcohol.
Medical History
Past Medical History
Past Medical History: Reports Other (chronic HFpEF/HfmrEF, mild interstitial fibrosis, atrial fibrillation, aortic stenosis, asthma, hyponatremia, labile hypertension, type 2 diabetes, CVA, seizure disorder, breast cancer with left
lumpectomy/radiation with recurrence of mastectomy, right carotid stenosis with stent, restless leg syndr)
Past Surgical History: Reports Other ( Appendectomy, Gynecological (hysterectomy) and Other (left-sided mastectomy 2018, right CEA))
Social History
Tobacco: Non-smoker
Alcohol: Former
Drug: None
Family History
Family History: Not pertinent
Allergies / Home Medications
Allergies reflects when Allergies were last updated in [employer].
Home Medications with original date entered in [employer]
Allergy/Medication List:
Allergies
Allergy/AdvReac Type Severity Reaction Status Date / Time
codeine Allergy Nausea Verified 05/23/24 15:35
morphine Allergy Unknown Verified 05/23/24 15:35
nitrofurantoin Allergy Hives Verified 05/23/24 15:35
[From Macrobid]
Home Medications
acetaminophen 325 mg tablet 650 mg (2 x 325 mg) PO Q4HPRN PRN DOUGLAS, mild pain, or temp >100.4F 07/08/21
pantoprazole 40 mg tablet,delayed release 20 mg PO DAILY Gastrointestinal issue 02/09/22
sennosides 8.6 mg tablet (senna) 8.6 mg PO BIDPRN PRN constipation 02/09/22
vitamins A,C,I-rbxo-tegklq 4,296 mcg-226 mg-90 mg capsule (PreserVision AREDS) 1 cap PO BID Supplement 02/09/22
metformin 750 mg tablet,extended release 24 hr 750 mg PO BID Diabetes 04/03/23
alprazolam 0.5 mg tablet 0.5 mg PO BIDPRN PRN Anxiety 09/26/23
clopidogrel 75 mg tablet 75 mg PO DAILY Blood Clot Prevention/Tx 09/26/23
amiodarone 200 mg tablet 200 mg PO BID Arrhythmia 30 days #60 tabs 05/17/24
apixaban 2.5 mg tablet 2.5 mg PO BID Arrhythmia 30 days #60 tabs 05/17/24
lisinopril 2.5 mg tablet 2.5 mg PO DAILY Heart Failure 30 days #30 tabs 05/17/24
metoprolol succinate 25 mg tablet,extended release 24 hr 12.5 mg (1/2 x 25 mg) PO DAILY Heart Failure 30 days #15 tabs 05/17/24
albuterol sulfate 90 mcg/actuation aerosol inhaler 2 puff inhalation R Q6HPRN PRN shortness of breath or wheezing 05/23/24
furosemide 20 mg tablet 20 mg PO .SEE BELOW 05/23/24
Review of Systems
-
History Source: Patient
A 12 point ROS was completed and negative except as noted: Yes
Constitutional: Reports No Symptoms
EENT: Reports No Symptoms
Respiratory: Reports See HPI
Cardiac: Reports See HPI
Abdomen/GI: Reports No Symptoms
: Reports No Symptoms
Musculoskeletal: Reports No Symptoms
Skin: Reports No Symptoms
Neurological: Reports No Symptoms
Endocrine: Reports No Symptoms
Hematologic/Lymphatic: Reports No Symptoms
Psych: Reports No Symptoms
Physical Exam
Vital Signs
Vital Signs
Temp Pulse Resp BP Pulse Ox
99.0 F 87 24 93/44 94
05/23/24 15:32 05/23/24 19:00 05/23/24 19:00 05/23/24 19:00 05/23/24 19:00
Physical Exam
General: Well Developed, Well Nourished and No Apparent Distress
HEENT: NormoCephalic, Moist mucous membranes and Atraumatic
Respiratory: Clear
Cardiac: S1/S2 and Regular Rhythm; No Murmur or Rub
GI: Soft, Non Tender, Non Distended and Normal Bowel Sounds; No Organomegaly
Rectal: Deferred by Provider
Musculoskeletal: No Clubbing, No Cyanosis and No Edema
Skin: No Rash
Neuro: Nonfocal/grossly intact
Laboratory Results
-
05/23/24 15:56
05/23/24 15:56
Laboratory Results
Total Bilirubin 0.4 mg/dl (0.2-1.3) 05/23/24 15:56
AST 37 U/L (14-36) H 05/23/24 15:56
ALT 13 U/L (0-35) 05/23/24 15:56
Alkaline Phosphatase 128 U/L (38-126) H 05/23/24 15:56
Troponin I 0.041 ng/ml H* 05/23/24 16:55
Data Reviewed
-
Lab Data: Labs Reviewed by me
Old Records: Reviewed
Impression/Plan
-
IMPRESSION:
PLAN:
# Acute hypoxemic/hypercarbic respiratory failure multifactorial secondary to acute on chronic HFrEF/HfmrEF exacerbation versus asthma/interstitial fibrosis flare
#History of mild interstitial fibrosis
# History of asthma
-Cardiac BNP from 4800 to 6800
-Check I's and O's, daily weights
-Patient on BiPAP
-40 IV Lasix given, and patient became hypotensive afterwards so 500 cc bolus to be given
-Continue DuoNebs
-Dexamethasone 10 mg IV given continue 4 mg every 12
-Also given racemic epinephrine, magnesium
-Empiric vancomycin/cefepime
-Pulmonary consulted
# Non-IA troponin elevation secondary to hypoxemia
-EKG shows normal sinus rhythm, repolarization abnormality,
Paroxysmal atrial fibrillation
-Continue Eliquis
-Continue amiodarone
-Continue metoprolol
History of aortic stenosis/trace MR/history of small PFO/pulmonary hypertension
Labile hypertension
-Hold lisinopril
Hyponatremia
Type 2 diabetes
-Continue metformin
History of CVA
-Continue Plavix
Seizure disorder
History of breast cancer with left lumpectomy/radiation with recurrence of mastectomy
History of restless leg syndrome
GERD/hiatal hernia
-Continue Protonix
Anxiety disorder
-Continue Xanax
DNR/DNI
DVT prophylaxis�Eliquis
Cardiac diet
[2024-05-23] MEDS: STERILE WATER FOR INJECTION 10 ML IV (22:08)
[2024-05-23] MEDS: PACERONE 200 MG PO (22:08)
[2024-05-23] MEDS: OCUVITE SOFTGEL 1 CAP PO (22:09)
[2024-05-23] MEDS: ELIQUIS 2.5 MG PO (22:09)
[2024-05-23] MEDS: DUONEB 3 ML INH (22:10)
--- NOTE | 2024-05-23 22:16 | PHA.VAN.IN ---
Assessment
- Assessment
Renal Function: Appears similar to baseline
Concomitant Antimicrobials: CEFEPIME
- Previous Dosing Experience
Previous Regimen: NONE
AUC Dosing Plan
- Dosing Variables
Dosing Weight (kg): 61
Dosing CrCl (ml/min): 64
Vd coefficient (L/kg): 0.7
- Empiric Dosing
Initial / Loading Dose: 1500MG TOTAL
Maintenance Regimen: 1250MG IV Q24H
Estimated AUC (mcg*h/mL): 531
Estimated Peak (mcg*h/mL): 39.1
Estimated Trough (mcg/ml): 10.7
Estimated Half Life (H): 12
Pharmacokinetics Vancomycin I
- -
Patient Age: 88
Patient Sex: Female
Vancomycin Day #: 1
Indication: Pulmonary/Respiratory
Requesting Provider: YUN
Pertinent Antimicrobial Allergies:
Allergies
nitrofurantoin [From Macrobid] Allergy (Verified 05/23/24 15:35)
Hives
Height / Weight:
Height 5 ft 8 in
Actual Weight 61 kg
- Vital Signs / Lab Results
Temp Pulse Resp BP Pulse Ox
97.7 F 79 16 95/48 96
05/23/24 21:06 05/23/24 21:15 05/23/24 21:15 05/23/24 21:09 05/23/24 21:15
Lab Results - Hematology
05/23/24
15:56
WBC 7.6
Lab Results - Chemistry
05/23/24
15:56
BUN 12
Creatinine 0.6
Albumin 4.6
[2024-05-23 22:17] LABS: Glucose - Point of Care 300 mg/dl (70-99)
[2024-05-23] MEDS: GLUCOPHAGE XR EXTENDED RELEASE 750 MG PO (22:44)
[2024-05-23] MEDS: VANCOCIN HCL 500 MG 100 IV (23:04)
[2024-05-23] MEDS: XANAX 0.5 MG PO (23:21)
--- NOTE | 2024-05-23 23:30 | PTCARENOTE ---
2100: Patient arrived to room 3352 on Bipap with ED RN & RT. CHG bath done. Tele applied showing NSR. Pt COQUILLE. Daughter at bedside asking if pt can have water. Education provided on aspiration precautions. Confirmed with pt she wants to be a DNR;
purple armband applied.
2200: Pt taken off Bipap, placed on RA Sp02 mid 90s. Duoneb given per RT, then placed on 3L NC. Patient's breathing appears regular and not labored. Able to swallow pills with water w/o issues.
2300: No UO. Bladder scan showing >700mL. JASON Alford made aware. 14 Fr Carpenter catheter placed for urinary retention; Tolerated well. ~800mL clear yellow urine drained to gravity. Pt reports feeling better. Requested prn xanax; administered per NOV.
Call bartlett and tray table within reach. Bed alarm set for safety. Hear aids charging on counter.
[2024-05-24] VITALS (29 sets, daily range): BP systolic 76–132; BP diastolic 39–83; BMI 20.2
[2024-05-24 04:32] LABS: % Basophils 0.2 % (0-2); % Immature Granulocytes 0.7 % (0-0.5); % Lymphocytes 5.7 % (20.5-51.1); % Monocytes 3.1 % (1.7-9.3); % Neutrophils 90.3 % (42.2-75.2); Absolute Immature Granulocytes 0.1 10^3/uL (0-0.05); Absolute Lymphocytes 0.5 10^3/uL (1.2-3.4); Absolute Monocytes 0.3 10^3/uL (0.1-0.6); Absolute Neutrophils 8.2 10^3/uL (1.4-6.5); Hematocrit 33.1 % (37.0-47.0); Hemoglobin 11.3 g/dL (12.0-16.0); Mean Corp Hgb Conc. 34.1 g/dL (33.0-37.0); Mean Corpuscular Hgb 30.3 pg (27.0-31.0); Mean Corpuscular Volume 88.7 fL (81.0-99.0); Mean Platelet Volume 9.9 fL (7.4-10.4); Nucleated Red Blood Cells % 0 %; Platelet Count 228 10^3/uL (130-400); Red Blood Cell Count 3.73 10^6/uL (4.20-5.40); Red Cell Dist. Width 14.8 % (11.5-14.5); White Blood Cell Count 9.1 10^3/uL (4.8-10.8)
[2024-05-24 05:05] LABS: AST (SGOT) 33 U/L (14-36); Albumin 3.6 g/dl (3.5-5.0); Alkaline Phosphatase 89 U/L (38-126); Blood Urea Nitrogen 16 mg/dl (7-17); Calcium 8.5 mg/dl (8.4-10.2); Carbon Dioxide 22 mmol/L (22-30); Chloride 93 mmol/L (98-107); Estimated Creatinine Clearance 53 ml/min; Glucose 260 mg/dl (70-99); Potassium 4.7 mmol/L (3.5-5.1); Sodium 131 mmol/L (135-145); Total Bilirubin 0.3 mg/dl (0.2-1.3); eGFR > 60.00
[2024-05-24] MEDS: VANCOCIN 275 MG IV (05:56)
[2024-05-24] MEDS: MAXIPIME 2000 MG IV ×3 (05:56→21:20)
[2024-05-24] MEDS: STERILE WATER FOR INJECTION 10 ML IV ×3 (05:56→21:21)
[2024-05-24] MEDS: DECADRON 4 MG IV ×2 (05:56→17:08)
--- NOTE | 2024-05-24 07:32 | W.PN.HOSP.TC ---
Addendum entered and electronically signed by Conrado Paige MD 05/26/24 09:19:
Non-ischemic myocardial injury
Original Note:
Today's Communication/Plan
-
cont empiric abx for now
follow cultures
IVF gentle hydration
CPAP prn and bedtime as per pulm
trend lactic acid
low dose midodrine
Levophed prn
Assessment / Plan
Assessment / Plan
Physical Exam
General: Well Developed, Well Nourished and No Apparent Distress
HEENT: NormoCephalic, Moist mucous membranes and Atraumatic
Respiratory: Clear
Cardiac: S1/S2 and Regular Rhythm; No Murmur or Rub
GI: Soft, Non Tender, Non Distended and Normal Bowel Sounds; No Organomegaly
Musculoskeletal: No Clubbing, No Cyanosis and No Edema
Skin: No Rash
Neuro: Nonfocal/grossly intact
88F HFmrEF, interstitial fibrosis, atrial fibrillation, aortic stenosis, asthma, hyponatremia, labile hypertension, DM, CVA, seizure disorder, breast cancer with left lumpectomy/radiation mastectomy, right carotid stenosis with stent, restless leg
syndrome, GERD/hiatal hernia, anxiety disorder, seizure disorder, p/w fatigue/dizziness/hypoxia since recent admission. Recently admitted from 05/14 to 05/17 for shortness of breath and hypoxia. She was treated for heart failure with diuresis and
nebulizers for pulmonary fibrosis. She was also found to be in new onset atrial fibrillation and started on Eliquis and amiodarone. Patient was dizzy since discharge and never got better. She developed acute onset of shortness of breath prompting
return. In respiratory distress, very tachypneic, tachycardic, patient was treated with BIPAP overnight and Lasix. Developed severe hypotension resolved with small IVF bolus.
# Acute hypoxemic/hypercarbic respiratory failure multifactorial secondary to acute on chronic HFmrEF versus asthma/interstitial fibrosis flare
#History of interstitial fibrosis
# History of asthma
-Cardiac BNP from 4800 to 6800
-Check I's and O's, daily weights
-treated w/ BiPAP overnight since weaned to Nasal Cannula, cont CPAP bedtime and prn as per pulm
-40 IV Lasix given, and patient became hypotensive afterwards 500 cc bolus given
-Continue DuoNebs
-Dexamethasone 10 mg IV given continue 4 mg every 12
-Also given racemic epinephrine, magnesium in ED
-Empiric vancomycin/cefepime follow blood cultures (obtained affter abx)
-Pulmonary consult appreciated CPAP bedtime and prn
-Cardio eval appreciated diuresis on hold for now given hypotension and lactic acidosis
# Non-VA troponin elevation secondary to hypoxemia
Troponin trended to peak 0.085 since trended down
Paroxysmal atrial fibrillation
-Continue Eliquis
-Continue amiodarone
-Continue metoprolol
History of aortic stenosis/trace MR/history of small PFO/pulmonary hypertension
Hypotension
Lactic acidosis
Metabolic Acidosis with Respiratory compensation
-Hold lisinopril
-IVF gentle hydration
-levophed prn MAP<65
-started low dose midodrine
-Lactic acid high 9.3 trending down unclear source possibly dehydration, non-tachypneic at time of draw, afebrile wbc wnl does not appear septic
-Check CT chest abd/pelvis w/ contrast
Hyponatremia
Type 2 diabetes
-metformin discontinued due to lactic acidosis
-sliding scale
History of CVA
-Continue Plavix
Seizure disorder
History of breast cancer with left lumpectomy/radiation with recurrence of mastectomy
History of restless leg syndrome
GERD/hiatal hernia
-Continue Protonix
Anxiety disorder
-Continue Xanax prn
DNR/DNI
DVT prophylaxis�Eliquis
Discussed with patient and patient's daughter Parvin
I spent a total of 60 minutes with the patient or on the floor. More than 50% of this time involved counseling and coordination of care.
Anticipated Discharge: > 48 hours
Subjective/Interval History
-
Date of Service: May 24, 2024
No acute distress resting comfortably in bed. Patient reports feeling better. Remains Oxygen dependent 3L. Denies pain.
Objective Data
-
Labs:
Laboratory Results
05/24/24
04:21
WBC 9.1
Hgb 11.3 L
Hct 33.1 L
Plt Count 228
Sodium 131 L
Potassium 4.7
Chloride 93 L
Carbon Dioxide 22
BUN 16
Creatinine 0.7
Glucose 260 H
Calcium 8.5
Total Bilirubin 0.3
AST 33
ALT Pending
Alkaline Phosphatase 89
Vital Signs:
Vital Signs
Temp Pulse Resp BP Pulse Ox
97.9 F 73 15 107/52 98
05/24/24 04:00 05/24/24 06:30 05/24/24 06:30 05/24/24 06:00 05/24/24 06:30
I&O
05/23/24 05/24/24 05/25/24
06:59 06:59 06:59
Intake Total 375 / 375
Output Total 1200 / 1200
Balance -825 / -825
[2024-05-24] MEDS: DUONEB 3 ML INH ×4 (07:45→19:28)
[2024-05-24 07:55] LABS: Glucose - Point of Care 178 mg/dl (70-99)
[2024-05-24 08:14] LABS: ALT (SGPT) < 10 U/L (0-35)
--- NOTE | 2024-05-24 08:20 | CON.PUL ---
Consultation
Consultation Request
Date/Time Consultation Requested: 12/23/23
Date/Time Consultation Performed: 12/23/23
Performing Provider: Linda
Reason for Consultation: SOB
Medical History
-
History of Present Illness:
Patient is an 88-year-old female with previous history of hypertension, diabetes, history of CVA, history of breast cancer, GERD, recent admission for CHF (d/c 05/17/24) presenting from [facility] via EMS for evaluation of presenting with
fatigue and dizziness since recent admission. She notes worsening SOB, was tried on increased lasix dose as OP but did not help. Repeat CXR remains similar but proBNP elevated from 4430 to 6840.
VBG showing acute hypercarbia 7..
O2 >90% she is placed on 2L satting 97%. Did not require O2 on last admission.
She does not provide history, slightly confused.
.
Past Medical History
Past Medical History: Other (see list below)
Social History
Tobacco: Non-smoker
Alcohol: None
Drug: None
Family History
Family History: Reviewed & Not Pertinent
Allergies / Home Medications
Allergies
Allergy/AdvReac Type Severity Reaction Status Date / Time
codeine Allergy Nausea Verified 05/23/24 15:35
morphine Allergy Unknown Verified 05/23/24 15:35
nitrofurantoin Allergy Hives Verified 05/23/24 15:35
[From Macrobid]
Home Medications
�Medication �Instructions �Recorded �Confirmed �Last Taken �Type
acetaminophen 325 mg tablet 650 mg (2 x 325 mg) PO Q4HPRN PRN 07/08/21 05/23/24 04/15/22 Rx
DOUGLAS, mild pain, or temp >100.4F
pantoprazole 40 mg tablet,delayed 20 mg PO DAILY Gastrointestinal 02/09/22 05/23/24 04/16/22 History
release issue
sennosides 8.6 mg tablet (senna) 8.6 mg PO BIDPRN PRN constipation 02/09/22 05/23/24 Unknown History
vitamins A,C,U-rkzs-drjium 4,296 1 cap PO BID Supplement 02/09/22 05/23/24 Unknown History
mcg-226 mg-90 mg capsule
(PreserVision AREDS)
metformin 750 mg tablet,extended 750 mg PO BID Diabetes 04/03/23 05/23/24 Unknown History
release 24 hr
alprazolam 0.5 mg tablet 0.5 mg PO BIDPRN PRN Anxiety 09/26/23 05/23/24 Unknown History
clopidogrel 75 mg tablet 75 mg PO DAILY Blood Clot 09/26/23 05/23/24 Unknown History
Prevention/Tx
amiodarone 200 mg tablet 200 mg PO BID Arrhythmia 30 days 05/17/24 05/23/24 Unknown Rx
#60 tabs
apixaban 2.5 mg tablet 2.5 mg PO BID Arrhythmia 30 days 05/17/24 05/23/24 Unknown Rx
#60 tabs
lisinopril 2.5 mg tablet 2.5 mg PO DAILY Heart Failure 30 05/17/24 05/23/24 Unknown Rx
days #30 tabs
metoprolol succinate 25 mg 12.5 mg (1/2 x 25 mg) PO DAILY 05/17/24 05/23/24 Unknown Rx
tablet,extended release 24 hr Heart Failure 30 days #15 tabs
albuterol sulfate 90 mcg/actuation 2 puff inhalation R Q6HPRN PRN 05/23/24 05/23/24 Unknown History
aerosol inhaler shortness of breath or wheezing
furosemide 20 mg tablet 20 mg PO .SEE BELOW 05/23/24 05/23/24 Unknown History
Review of Systems
-
History Source: Patient
All other systems: Negative unless noted
Vitals / Labs / Diagnostic Testing
Vital Signs
Temp Pulse Resp BP Pulse Ox
97.9 F 75 14 107/52 97
05/24/24 04:00 05/24/24 07:46 05/24/24 07:46 05/24/24 06:00 05/24/24 07:46
Lab Data
05/24/24 04:21
05/24/24 04:21
Diagnostic Testing:
Physical Exam
-
HEENT: Normocephalic, Anicteric and Moist Mucous Membranes
Cardiovascular: S1/S2 and Regular Rhythm
Respiratory: Rales and Non-Labored Respirations
GI: Soft, Non Distended and Non Tender
Neurology: Awake, Alert and Other (confused, anxious appearing)
Skin: Warm, Dry and Good Color
General: Comfortable and Other (NAD)
Assessment
-
Patient is an 88-year-old female with previous history of hypertension, diabetes, history of CVA, history of breast cancer, GERD, recent admission for CHF (d/c 05/17/24) presenting from [facility] via EMS for evaluation of presenting with
fatigue and dizziness since recent admission. She notes worsening SOB, was tried on increased lasix dose as OP but did not help. Repeat CXR remains similar but proBNP elevated from 4430 to 6840. VBG showing acute hypercarbia 7.27/54. O2 >90% she
is placed on 2L satting 97%. Did not require O2 on last admission. We are consulted for eval.
Acute hypercarbic respiratory failure, new onset
Acute on chronic CHF exacerbation-reduced EF
SOB
Possible underlying chronic ILD-suspect very mild per CT 05/15/2024
Hyperglycemia
Hyponatremia
Mild anemia-hemoglobin 11.3
Conditions present prior to admission:
HTN
NIDDM
Breast Ca with Radiation Therapy s/p Left Mastectomy
GERD/Hiatal Hernia
Carotid stenosis, right s/p stent
History of seizures
Hypercholesterolemia
History of stroke 2020
RLS
UTIs
Hysterectomy
History of bowel resection
Back surgery
Iron Deficiency
Congenital malformation of esophagus
Postmenopausal atrophic vaginitis
Gait difficulty
Dysphagia
Former smoker
Moderate aortic stenosis
Diastolic dysfunction
Reduced EF-40%-was 60%
Mild bronchiectasis
Plan
Recent respiratory decompensation likely due to fluid overload/CHF and less likely due to mild interstitial pulmonary fibrosis
She is placed on 2L NC, satting 97%
Wean as tolerated
Multifactorial SOB is noted
May benefit from SNF placement
Repeat CXR appears largely unchanged
proBNP increased from 4430 to 6840
Cards eval, would benefit from more diuresis
Echocardiogram 05/15/2024-EF 40-45%, stage II diastolic dysfunction, mild mitral regurgitation, moderate aortic stenosis
Atrial fibrillation rate control
Now on amiodarone 200 mg twice daily-monitor for toxicity
Eliquis continues
Aspiration precautions per protocol
Speech therapy evaluation 05/14/2014 noted-recommending video swallow, regular diet thin liquids and consider GI consultation
VBG noted with CO2 elevation
Will order repeat ABG now to evaluate, can trial CPAP as needed which would be beneficial in CHF patients
Possible ILD noted on prior imaging
Prior history of lung disease is not noted
No prior known history of lung disease, nonsmoker. Trivial use socially in her youth for a total of 5 years
COPD history in her father who was a smoker
Denies exposure history
Outpatient pulmonary pqdyag-dc-jlqg need PFTs especially in light of amiodarone load and maintenance going forward--has not yet seen us to do readmission
DVT prophylaxis-on Eliquis/resume
Nutrition
Aspiration precautions
PT/OT
We will follow
Diagnostic Data
Chest X-Ray: 05/14/24- Suspect diffuse interstitial pneumonitis and component of pulmonary vascular congestion. Cannot rule out superimposed left basilar pneumonia and/or underlying chronic interstitial changes.
09/26/23- No acute disease of the chest. Large hiatal hernia. Enlarged.
CT chest 05/15/2024-mild reticular interstitial thickening at the lung bases with mild basilar bronchiectasis suggesting mild interstitial fibrosis, superimposed interstitial pneumonitis suspected with small bilateral pleural effusions and severe
coronary artery calcifications and large hiatal hernia
Echo: 04/23/22- 1. Small left ventricle with moderate left ventricular hypertrophy and preserved systolic function, EF 60-65%
2. Thickened mitral leaflets, mitral annular calcification, trace mitral regurgitation, and left atrial dilatation
3. Mild aortic stenosis, peak/mean gradient 28/15 mmHg, aortic valve area 1.5 cm2
4. Normal right heart with mild pulm hypertension, 36 mmHg systolic
5. Small patent foramen ovale
Echocardiogram 05/15/2024-EF 40-45%, stage II diastolic dysfunction, mild mitral regurgitation, moderate aortic stenosis
-----
Total time spent on this consultation __75__ includes review of history, physical exam, medications, laboratory data, personal review of imaging, extensive review of outpatient records, discussion with care team and respiratory therapy.
[2024-05-24] MEDS: ELIQUIS 2.5 MG PO ×2 (08:25→21:20)
[2024-05-24] MEDS: PLAVIX 75 MG PO (08:25)
[2024-05-24] MEDS: PROTONIX 20 MG PO (08:25)
[2024-05-24] MEDS: GLUCOPHAGE XR EXTENDED RELEASE 750 MG PO (08:25)
[2024-05-24] MEDS: OCUVITE SOFTGEL 1 CAP PO ×2 (08:25→21:20)
[2024-05-24] MEDS: PACERONE 200 MG PO (08:25)
--- NOTE | 2024-05-24 08:43 | PHA.VAN.FU ---
Addendum entered and electronically signed by Maggy Stephen [facility] 05/24/24 08:57:
MRSA screen ordered per protocol
Original Note:
Vancomycin Assessment / Plan
- Assessment
Renal Function: Stable
WBC's are: WNL
In the past 24 hrs, patient has been: Afebrile
Concomitant Antimicrobials: cefepime
- Dosing Plan
Continue: Vanc 1250mg Q24H
- Monitoring Plan
No level(s) ordered at this time: consider levels in next few days
- Follow Up
Pharmacy will continue to follow.
Vancomycin Follow UP
- -
Patient Age: 88
Patient Sex: Female
Vancomycin Day #: 2
Indication: Pulmonary/Respiratory
Requesting Provider: Dr. Lantigua
Pertinent Antimicrobial Allergies:
nitrofurantoin - Hives
Height / Weight:
Height 5 ft 8 in
Actual Weight 60.1 kg
Pertinent Past Medical History: DM 2,
- Vital Signs / Lab Results
Temp Pulse Resp BP Pulse Ox
97.9 F 75 14 107/52 97
05/24/24 04:00 05/24/24 07:46 05/24/24 07:46 05/24/24 06:00 05/24/24 07:46
Lab Results - Hematology
05/23/24 05/24/24
15:56 04:21
WBC 7.6 9.1
Lab Results - Chemistry
05/23/24 05/24/24
15:56 04:21
BUN 12 16
Creatinine 0.6 0.7
Estimated Creat Clear 53
Albumin 4.6 3.6
[2024-05-24] MEDS: NOVOLOG FLEXPEN-MODERATE RESISTANCE 1 UNITS SC (10:21)
[2024-05-24] MEDS: XANAX 0.5 MG PO ×2 (10:23→22:42)
[2024-05-24] MEDS: ProAmatine 5 MG PO (11:08)
[2024-05-24 11:35] LABS: Glycohemoglobin (HgbA1c) 6.9 % (4.0-5.6)
[2024-05-24 12:19] LABS: Glucose - Point of Care 249 mg/dl (70-99)
--- NOTE | 2024-05-24 12:39 | CON.CAR ---
Addendum entered and electronically signed by Rupesh Tuttle MD 05/24/24 18:03:
I saw and examined the patient.
The Alley Worker's note was reviewed and I agree with the note.
Comment: Briefly, 89-year-old woman past medical history of heart failure with reduced ejection fraction, atrial fibrillation, pulmonary fibrosis who presents with worsening shortness of breath and weakness cardiology is consulted to evaluate for
heart failure.
Based on physical exam patient is not overtly volume overloaded and weight seems to be near her baseline
With lactic acidosis and hypotension plan is to administer gentle IV fluid
Hold off on IV diuresis for now, suspect she will eventually need maintenance diuretic
Monitor daily weights, renal function electrolytes closely
We will continue to follow with you
Original Note:
Consultation
Consultation Request
Date/Time Consultation Performed: 05/24/24
Requesting Provider: Dr. Lantigua
Performing Provider: Dahiana Stanley PA-C for Dr. Tuttle
Reason for Consultation: hypotension, SOB
Medical History
-
Chief Complaint: SOB, weakness
History of Present Illness:
Patient is an 89-year-old woman living at [facility] with recent admission 05/14-05/17/24 for afib with RVR, acute CHF, and pulm fibrosis. Cardiology recommendation was for po lasix 40mg daily upon DC however she was not discharged on lasix.
She was seen in cardiology office for follow up 05/22 and she had complained of nausea, weakness, SOB, and was mildly hypotensive. Due to symptoms, amiodarone was decreased to 200mg daily from BID and lasix 20mg daily was started. She reports she has
had worsening weakness and SOB with exertion. Hypotensive on arrival to ER and has remained hypotensive. in sinus rhythm. proBNP 6800, up from 4400 last admission. Denies LE edema, weight gain, fevers, chills. Cardiology consulted for evaluation.
She has history of orthostasis and previously had not been compliant with abd binder or compression stockings. She was not on supp O2 on DC last admission.
PMH:
Recent admission to 05/14-05/17/24 for afib with RVR, CHF, pulm fibrosis
History of multiple ischemic strokes which have been felt likely to represent small vessel disease and atherosclerosis
Autonomic dysfunction/hypotension/orthostasis treated with midodrine as needed
Type 2 diabetes with diabetic neuropathy
History of seizure disorder
Breast Ca with Radiation Therapy s/p Left Mastectomy
GERD/Hiatal Hernia
Carotid stenosis, right s/p stent
Hypercholesterolemia
RLS
UTIs
Hysterectomy
History of bowel resection
Back surgery
Iron Deficiency
Congenital malformation of esophagus
Postmenopausal atrophic vaginitis
Gait difficulty
Dysphagia
Former smoker
Past Medical History
Past Medical History: Other (in HPI)
Social History
Tobacco: Non-Smoker
Alcohol: None
Drug: None
Personal:
Living: Assisted Living ([facility])
Employment: Retired
Family History
Family History: Reviewed & Not Pertinent
Allergies / Home Medications
Allergy/AdvReac Type Severity Reaction Status Date / Time
codeine Allergy Nausea Verified 05/23/24 15:35
morphine Allergy Unknown Verified 05/23/24 15:35
nitrofurantoin Allergy Hives Verified 05/23/24 15:35
[From Macrobid]
�Medication �Instructions �Recorded �Confirmed �Type
acetaminophen 325 mg tablet 650 mg (2 x 325 mg) PO Q4HPRN PRN 07/08/21 05/23/24 Rx
DOUGLAS, mild pain, or temp >100.4F
pantoprazole 40 mg tablet,delayed 20 mg PO DAILY Gastrointestinal 02/09/22 05/23/24 History
release issue
sennosides 8.6 mg tablet (senna) 8.6 mg PO BIDPRN PRN constipation 02/09/22 05/23/24 History
vitamins A,C,N-xxyr-ohduso 4,296 1 cap PO BID Supplement 02/09/22 05/23/24 History
mcg-226 mg-90 mg capsule
(PreserVision AREDS)
metformin 750 mg tablet,extended 750 mg PO BID Diabetes 04/03/23 05/23/24 History
release 24 hr
alprazolam 0.5 mg tablet 0.5 mg PO BIDPRN PRN Anxiety 09/26/23 05/23/24 History
clopidogrel 75 mg tablet 75 mg PO DAILY Blood Clot 09/26/23 05/23/24 History
Prevention/Tx
amiodarone 200 mg tablet 200 mg PO BID Arrhythmia 30 days 05/17/24 05/23/24 Rx
#60 tabs
apixaban 2.5 mg tablet 2.5 mg PO BID Arrhythmia 30 days 05/17/24 05/23/24 Rx
#60 tabs
lisinopril 2.5 mg tablet 2.5 mg PO DAILY Heart Failure 30 05/17/24 05/23/24 Rx
days #30 tabs
metoprolol succinate 25 mg 12.5 mg (1/2 x 25 mg) PO DAILY 05/17/24 05/23/24 Rx
tablet,extended release 24 hr Heart Failure 30 days #15 tabs
albuterol sulfate 90 mcg/actuation 2 puff inhalation R Q6HPRN PRN 05/23/24 05/23/24 History
aerosol inhaler shortness of breath or wheezing
furosemide 20 mg tablet 20 mg PO .SEE BELOW Fluid 05/23/24 05/23/24 History
Retention/Swelling
Review of Systems
-
History Source: Patient
All other systems: Negative unless noted
Physical Exam
Vital Signs
Temp Pulse Resp BP Pulse Ox
97.8 F 75 16 93/44 95
05/24/24 07:30 05/24/24 11:25 05/24/24 11:25 05/24/24 11:08 05/24/24 11:47
Lab Results
05/24/24 04:21
05/24/24 04:21
Troponin I 0.041 ng/ml H* 05/23/24 16:55
Ywp-L-Gjofxyqqkbn Pept 6840 pg/ml 05/23/24 16:55
Physical Exam
General: No Apparent Distress, Comfortable and Other (on supp O2)
HEENT: Normocephalic, Anicteric and Moist Mucous Membranes
Respiratory: Crackles and Non Labored Respirations
Cardiac: S1/S2, Regular Rhythm and Murmur
GI: Soft, Non Tender, Non Distended and Normal Bowel Sounds
Musculoskeletal: No Clubbing, No Cyanosis and No Edema
Skin: Warm and Dry
Neuro: AO x 3
Impression / Plan
-
PCP: Nuzhat Gold
Offshore Diver: Dr. Deana Funes
Impression:
Presented 05/13/2024 with JEAN BAPTISTE, weakness, dizziness
Hypercarbia
Hypotension
Recent admission to 05/14-05/17/24 for afib with RVR, CHF, pulm fibrosis/ILD
History of multiple ischemic strokes which have been felt likely to represent small vessel disease and atherosclerosis.
Autonomic dysfunction/hypotension/orthostasis treated with midodrine as needed
Patient has not been compliant with abdominal binder, compressions for known orthostatic hypotension and has not taken midodrine consistently due to hypertension
Type 2 diabetes with diabetic neuropathy
History of seizure disorder
Breast Ca with Radiation Therapy s/p Left Mastectomy
GERD/Hiatal Hernia
Carotid stenosis, right s/p stent
Hypercholesterolemia
RLS
UTIs
Hysterectomy
History of bowel resection
Back surgery
Iron Deficiency
Congenital malformation of esophagus
Postmenopausal atrophic vaginitis
Gait difficulty
Dysphagia
Hyponatremia
Former smoker
DNR code status
Echocardiogram April 15, 2022 finds small left ventricle with moderate left ventricular hypertrophy and ejection fraction of 60 to 65%. There is mild aortic stenosis with peak and mean gradients of 28 and 15 mmHg and calculated aortic valve area of
1.5 cm�.
3 weeks of cardiac monitoring May 2021 failed to demonstrate atrial fibrillation
Echo 05/15/2024: EF 40 to 45%, global hypokinesis, stage II diastolic dysfunction, MAC, mild MR, mild to moderate with peak/mean gradients 27/18 mmHg, KAYLEIGH 1.4 cm�, trace AR
Plan:
-She presents with symptoms of dyspnea on exertion, weakness, dizziness and hypotension
-She was started on p.o. Lasix 20 mg daily at office visit 05/22 without improvement. proBNP up slightly compared to prior during admission last week. Cr stable
-Chest x-ray appears relatively unchanged compared to prior
-Currently on supplemental O2 2 L nasal cannula
-Does not appear to be grossly volume overloaded. Also not without clear evidence of infection/sepsis
-Will hold Lasix today. currently on midodrine 2.5mg TID. she has history of orthostasis and uses midodrine on PRN basis as OP
-Check orthostatic vital signs
-Consider resuming Lasix in next 24-48 hours
-GDMT currently limited by hypotension. holding OP toprol, lisinopril
-She is not a candidate for SGLT2 inhibitors given history of UTIs
-Fortunately remains in sinus rhythm. Amiodarone decreased to 200 mg daily 05/22. QTc stable
-continue eliquis, plavix (history of CVAs)
-EF 40-45% by echo last admit. Suspected cardiomyopathy secondary to rapid atrial fibrillation. Severe coronary artery calcification noted by chest CT. Would consider for outpatient ischemic evaluation
-if remains hypotensive, may need to consider RHC to determine volume status
-PT/OT evals. may need SNF upon DC
-d/w pulmonary
Data Reviewed
-
EKG: Tracing Personally Visualized and interpreted
Radiology: Report Reviewed by me
Medical Tests (Nuc Med, Echo etc): Report Reviewed by me
Labs: Labs Reviewed by me
Old Records: Reviewed
[2024-05-24] MEDS: ProAmatine 2.5 MG PO ×2 (12:42→17:08)
[2024-05-24] MEDS: NOVOLOG FLEXPEN-MODERATE RESISTANCE 3 UNITS SC (12:43)
[2024-05-24 12:57] LABS: Troponin I 0.085 ng/ml
[2024-05-24 13:47] LABS: O2 Saturation % 96.8 % (94-98); PCO2 26 mmHg (32-35); PO2 94 mmHg (83-108); pH 7.37 (7.35-7.45)
--- NOTE | 2024-05-24 14:44 | PTCARENOTE ---
Assumed care of patient at beginning of this shift from operations supervisor 2nd shift RN. Patient Ox3 but forgetful; tearful this morning as today is her birthday and she is in the hospital. ABGs drawn on 3L n/c (as per resp therapist): HCO3 15. [place] text sent to
Grecia and Dr Mckeon. See worklist for full assessment and vital signs.
--- NOTE | 2024-05-24 15:13 | CM ---
Patient with Acute hypoxemic/hypercarbic respiratory failure. O2 3L. Receiving IV Abx, IV Steroids. PT & OT Evals pending.
Met with patient who resides with her daughter Parvin and son in law in a 2 story house with 3 [address].
The patient has been independent in ADLs and ambulation using her RW.
DME - RW, SPC, shower chair
VN - prior [facility]
SNF - none
Prior [facility]
PCP - Nuzhat Zhu
Pharmacy - [facility]
Plan follow up after seen by PT/OT and contact daughter.
--- NOTE | 2024-05-24 15:25 | PTCARENOTE ---
Patient's daughter in to visit and asked to speak with physician. Haynes text sent to Dr Morales who stated he will be up to answer questions. Daughter updated.
[2024-05-24 16:15] LABS: Lactic Acid 9.3 mmol/L (0.7-2.0)
[2024-05-24 16:35] LABS: Troponin I 0.065 ng/ml
[2024-05-24] MEDS: NOVOLOG FLEXPEN-MODERATE RESISTANCE 5 UNITS SC (16:48)
[2024-05-24 16:58] LABS: Glucose - Point of Care 279 mg/dl (70-99)
[2024-05-24] MEDS: NSS 500 IV (17:08)
[2024-05-24] MEDS: LEVOPHED 250 IV (17:16)
--- NOTE | 2024-05-24 17:24 | PTCARENOTE ---
BP has remained low throughout the day despite midodrine. Labs ordered and resulted: lactic acid 9.3, procal 1.0; tiger text sent to Dr Paige who came up to see patient. NSS bolus @ 1000ml/hr x500ml ordered and infusing. Levophed ordered and started
at 2mcg/min. CT chest/abd/pelvis ordered per Dr Paige; will keep NPO until after completed. Patient remains afebrile. Repeat lactic and blood cultures ordered. Per Dr Paige, both can be drawn after IVF bolus completed. Dr Paige called daughter to
update as she had left prior to him coming to see patient. See worklist for levophed titration.
[2024-05-24] MEDS: NSS 1000 IV (17:41)
[2024-05-24 18:37] LABS: Lactic Acid 4.7 mmol/L (0.7-2.0)
[2024-05-24 22:22] LABS: Glucose - Point of Care 296 mg/dl (70-99)
[2024-05-24 23:18] LABS: Lactic Acid 5.1 mmol/L (0.7-2.0)
[2024-05-24] MEDS: MELATONIN 5 MG PO (23:33)
[2024-05-25] VITALS (26 sets, daily range): BP systolic 108–152; BP diastolic 51–85; PULSE 79–82; BMI 21.0
--- NOTE | 2024-05-25 00:05 | PTCARENOTE ---
Caring for pt overnight. Weaned levo to 2mcg so far. BP's & MAP stable. pt aaox3, forgetful & anxious. pt taken down to CAT scan. Pt was c/o abdominal pain/needing to belch after eating dinner. Then shortly after was c/o pressure in her chest, EKG
was done, results NSR. IVF running. Lactic drawn per protocol. Pt able to turn self. NSR on monitor. Remains 2LNC, refused cpap overnight. Reached out to HEADER SET UP OPERATOR for melatonin for bedtime. NO other issues at this time. PT sleeping comfortably.
[2024-05-25] MEDS: DECADRON 4 MG IV ×2 (05:24→17:47)
[2024-05-25] MEDS: STERILE WATER FOR INJECTION 10 ML IV ×2 (05:24→16:43)
[2024-05-25] MEDS: MAXIPIME 2000 MG IV (05:24)
[2024-05-25] MEDS: VANCOCIN 275 MG IV (05:34)
[2024-05-25] MEDS: DUONEB 3 ML INH ×4 (05:59→20:49)
[2024-05-25 07:51] LABS: Glucose - Point of Care 249 mg/dl (70-99)
[2024-05-25] MEDS: NOVOLOG FLEXPEN-MODERATE RESISTANCE 3 UNITS SC (08:02)
[2024-05-25] MEDS: PLAVIX 75 MG PO (09:04)
[2024-05-25] MEDS: OCUVITE SOFTGEL 1 CAP PO ×2 (09:04→19:56)
[2024-05-25] MEDS: PROTONIX 20 MG PO (09:04)
[2024-05-25] MEDS: ProAmatine 2.5 MG PO ×3 (09:04→17:47)
[2024-05-25] MEDS: PACERONE 200 MG PO (09:04)
[2024-05-25] MEDS: ELIQUIS 2.5 MG PO ×2 (09:04→19:56)
--- NOTE | 2024-05-25 09:23 | PN.CDI ---
CDI
- -
CDI:
Physician Documentation Request
Admit Date: 05/23/24 20:05
Dear Doctor Grecia,
Patient admitted for respiratory failure.
05/24 Hospitalist PN: 'Non-GA troponin elevation secondary to hypoxemia. Troponin trended to peak 0.085 since trended down'
Please clarify the following regarding the documented troponin elevation:
Non-ischemic myocardial injury
Lab abnormality
Other
Use of terms such as suspected, likely, concern for, or probable (associated with a specific diagnosis that is being evaluated, monitored, or treated as if it exists) are acceptable and can be coded in the inpatient setting, when documented at the
time of discharge.
Thank you,
Yin Anaya RN, BSN
CDI Specialist
Available via [place] text
Please use your independent medical judgment in providing your response.
--- NOTE | 2024-05-25 11:04 | W.PN.PUL3 ---
Today's Communication / Plan
-
Doing well, weaned to RA
Remains on diuresis per team, midodrine for BP
Lactate declining, unclear cause, CT neg, UA pending
PT/OT eval, would likely benefit from SNF
Discharge planning per team
Assessment
-
Patient is an 88-year-old female with previous history of hypertension, diabetes, history of CVA, history of breast cancer, GERD, recent admission for CHF (d/c 05/17/24) presenting from [facility] via EMS for evaluation of presenting with
fatigue and dizziness since recent admission. She notes worsening SOB, was tried on increased lasix dose as OP but did not help. Repeat CXR remains similar but proBNP elevated from 4430 to 6840. VBG showing acute hypercarbia 7.27/54. O2 >90% she
is placed on 2L satting 97%. Did not require O2 on last admission. We are consulted for eval.
Acute hypercarbic respiratory failure, new onset
Acute on chronic CHF exacerbation-reduced EF
SOB
Possible underlying chronic ILD-suspect very mild per CT 05/15/2024
Hyperglycemia
Hyponatremia
Mild anemia-hemoglobin 11.3
Lactic acidosis
Conditions present prior to admission:
HTN
NIDDM
Breast Ca with Radiation Therapy s/p Left Mastectomy
GERD/Hiatal Hernia
Carotid stenosis, right s/p stent
History of seizures
Hypercholesterolemia
History of stroke 2020
RLS
UTIs
Hysterectomy
History of bowel resection
Back surgery
Iron Deficiency
Congenital malformation of esophagus
Postmenopausal atrophic vaginitis
Gait difficulty
Dysphagia
Former smoker
Moderate aortic stenosis
Diastolic dysfunction
Reduced EF-40%-was 60%
Mild bronchiectasis
Plan
Recent respiratory decompensation likely due to fluid overload/CHF and less likely due to mild interstitial pulmonary fibrosis
She is placed on 2L NC, satting 97%-- now weaned to RA
Wean as tolerated
Multifactorial SOB is noted
May benefit from SNF placement
Repeat CXR appears largely unchanged
proBNP increased from 4430 to 6840
[place] eval, would benefit from more diuresis
Echocardiogram 05/15/2024-EF 40-45%, stage II diastolic dysfunction, mild mitral regurgitation, moderate aortic stenosis
Atrial fibrillation rate control
Now on amiodarone 200 mg twice daily-monitor for toxicity
Eliquis continues
Aspiration precautions per protocol
Speech therapy evaluation 05/14/2014 noted-recommending video swallow, regular diet thin liquids and consider GI consultation
VBG noted with CO2 elevation
ABG showing metabolic acidosis, lactate elevated, dykes scan negative
Repeat lactate improving, unclear cause
Repeat UA/cultures
PRN CPAP which would be beneficial in CHF patients
Possible ILD noted on prior imaging
Prior history of lung disease is not noted
No prior known history of lung disease, nonsmoker. Trivial use socially in her youth for a total of 5 years
COPD history in her father who was a smoker
Denies exposure history
Outpatient pulmonary [id number] need PFTs especially in light of amiodarone load and maintenance going forward--has not yet seen us to do readmission
DVT prophylaxis-on Eliquis/resume
Nutrition
Aspiration precautions
PT/OT
Discharge planning per team
Diagnostic Data
Chest X-Ray: 05/14/24- Suspect diffuse interstitial pneumonitis and component of pulmonary vascular congestion. Cannot rule out superimposed left basilar pneumonia and/or underlying chronic interstitial changes.
09/26/23- No acute disease of the chest. Large hiatal hernia. Enlarged.
CT chest 05/15/2024-mild reticular interstitial thickening at the lung bases with mild basilar bronchiectasis suggesting mild interstitial fibrosis, superimposed interstitial pneumonitis suspected with small bilateral pleural effusions and severe
coronary artery calcifications and large hiatal hernia
Echo: 04/23/22- 1. Small left ventricle with moderate left ventricular hypertrophy and preserved systolic function, EF 60-65%
2. Thickened mitral leaflets, mitral annular calcification, trace mitral regurgitation, and left atrial dilatation
3. Mild aortic stenosis, peak/mean gradient 28/15 mmHg, aortic valve area 1.5 cm2
4. Normal right heart with mild pulm hypertension, 36 mmHg systolic
5. Small patent foramen ovale
Echocardiogram 05/15/2024-EF 40-45%, stage II diastolic dysfunction, mild mitral regurgitation, moderate aortic stenosis
-----
Total time spent on this encounter __51__ includes review of history, physical exam, medications, laboratory data, personal review of imaging, extensive review of outpatient records, discussion with care team and respiratory therapy.
Subjective Data
-
Date of Service:
Date of Service: May 25, 2024
Chief Complaint: Pulmonary Follow Up
Subjective:
no events ON, remains stable on RA
briefly hypotensive, on midodrine
daughter at bedside
Objective Data
Data Reviewed
Vital Signs / I&O / Oxygen:
Vital Signs
Temp Pulse Resp BP Pulse Ox
98.1 F 72 16 123/61 98
05/25/24 03:30 05/25/24 10:00 05/25/24 10:00 05/25/24 10:00 05/25/24 10:00
Intake and Output
05/24/24 05/25/24 05/26/24
06:59 06:59 06:59
Intake Total 375 / 375 600 / 600
Output Total 1200 / 1200 800 / 800
Balance -825 / -825 -200 / -200
SaO2 98
Nasal Cannula flow liters per 2
minute
Physical Exam
General: Comfortable, Other (NAD) and Other (anxious appearing)
HEENT: Normocephalic, Anicteric and Moist Mucous Membranes
Cardiovascular: S1-S2 and Regular Rhythm
Respiratory: Clear and Non-Labored Respirations
GI: Soft, Non Distended and Non Tender
Neurology: Awake, Alert, No Motor Deficits and Other (confused, does not always answer appropriately)
Skin: Warm, Dry and Good Color
Labs/Micro/Reports
Laboratory Results
05/24/24
13:28
pH 7.37
pCO2 26 L
pO2 94
HCO3 15.0 L*
O2 Delivery Level
Microbiology
05/24/24 12:06 Nose Nasal Screen MRSA (PCR) - Final
MRSA not detected - performed by PCR methodology.
--- NOTE | 2024-05-25 11:07 | W.PN.CARDCBS ---
Addendum entered and electronically signed by Fe Colón MD 05/25/24 14:04:
EKG remains abnormal but now with T wave inversions noted. No chest pain. Peak troponin 0.085 which is now downtrending. Will check follow-up echocardiogram to exclude wall motion abnormality.
Original Note:
Today's Communication / Plan
-
Continue supportive care.
Likely will need to resume diuretic tomorrow
Reassess EKG
Primary service to evaluate sepsis/infection
Impression / Plan
-
PCP: Nuzhat Gold
Hvac Sheet Metal Installer Helper: Dr. Deana Funes
Impression:
Presented 05/13/2024 with JEAN BAPTISTE, weakness, dizziness
Hypercarbia
Hypotension
Troponin elevation likely nonischemic troponin elevation
Recent admission to 05/14-05/17/24 for afib with RVR, CHF, pulm fibrosis/ILD
History of multiple ischemic strokes which have been felt likely to represent small vessel disease and atherosclerosis.
Autonomic dysfunction/hypotension/orthostasis treated with midodrine as needed
Patient has not been compliant with abdominal binder, compressions for known orthostatic hypotension and has not taken midodrine consistently due to hypertension
Type 2 diabetes with diabetic neuropathy
History of seizure disorder
Breast Ca with Radiation Therapy s/p Left Mastectomy
GERD/Hiatal Hernia
Carotid stenosis, right s/p stent
Hypercholesterolemia
RLS
UTIs
Hysterectomy
History of bowel resection
Back surgery
Iron Deficiency
Congenital malformation of esophagus
Postmenopausal atrophic vaginitis
Gait difficulty
Dysphagia
Hyponatremia
Former smoker
DNR code status
Echocardiogram April 15, 2022 finds small left ventricle with moderate left ventricular hypertrophy and ejection fraction of 60 to 65%. There is mild aortic stenosis with peak and mean gradients of 28 and 15 mmHg and calculated aortic valve area of
1.5 cm�.
3 weeks of cardiac monitoring May 2021 failed to demonstrate atrial fibrillation
Echo 05/15/2024: EF 40 to 45%, global hypokinesis, stage II diastolic dysfunction, MAC, mild MR, mild to moderate with peak/mean gradients 27/18 mmHg, KAYLEIGH 1.4 cm�, trace AR
Plan:
-Complains of some abdominal discomfort. No chest pain or palpitations. Primary service to continue to evaluate for sepsis/infectious process.
-She initially presented with symptoms of dyspnea on exertion, weakness, dizziness and hypotension. Currently off of pressors. Continue to follow.
-From a heart failure point of view previously she was started on p.o. Lasix 20 mg daily at office visit 05/22 without improvement. proBNP up slightly compared to prior during admission last week. Cr stable. Continue to conservatively monitor
volume status. Weight is up slightly. Continue to reassess need for diuretic. Oxygenation stable. Likely will resume diuretic tomorrow.
-Does not appear to be grossly volume overloaded despite elevated proBNP.
-GDMT currently limited by hypotension. holding OP toprol, lisinopril
-She is not a candidate for SGLT2 inhibitors given history of UTIs
-EF 40-45% by echo last admit. Suspected cardiomyopathy secondary to rapid atrial fibrillation. Severe coronary artery calcification noted by chest CT. Would consider for outpatient ischemic evaluation. Eventually reassess echocardiogram.
-Currently on midodrine 2.5mg TID. she has history of orthostasis and uses midodrine on PRN basis as OP
-Follow orthostatic vital signs
-Paroxysmal atrial fibrillation. She remains in sinus rhythm. Amiodarone decreased to 200 mg daily 05/22. QTc stable. Reassess EKG. Continue anticoagulation.
-Non-FL troponin elevation likely. Reassess EKG. If any change in cardiac status reassess follow-up echo.
-Continue antiplatelet therapy eliquis, plavix (history of CVAs)
Progress Note - Hvac Sheet Metal Installer Helper
Subjective
Date of Service: May 25, 2024
She has some intermittent abdominal discomfort. She denies chest pain and palpitations.
Objective
Labs:
Labs
Hgb 11.3 g/dL (12.0-16.0) L 05/24/24 04:21
Hct 33.1 % (37.0-47.0) L 05/24/24 04:21
Plt Count 228 10^3/uL (130-400) 05/24/24 04:21
Sodium 131 mmol/L (135-145) L 05/24/24 04:21
Potassium 4.7 mmol/L (3.5-5.1) 05/24/24 04:21
BUN 16 mg/dl (7-17) 05/24/24 04:21
Creatinine 0.7 mg/dL (0.6-1.0) 05/24/24 04:21
Glucose 260 mg/dl (70-99) H 05/24/24 04:21
Troponins
05/23/24 05/24/24 05/24/24
16:55 12:06 15:51
Troponin I 0.041 H* 0.085 H* 0.065 H*
Vital Signs and I&O:
Vital Signs
Temp Pulse Resp BP Pulse Ox
98.1 F 72 16 123/61 98
05/25/24 03:30 05/25/24 10:00 05/25/24 10:00 05/25/24 10:00 05/25/24 10:00
Vital Signs
Temp Pulse Resp BP Pulse Ox
98.1 F 72 16 123/61 98
05/25/24 03:30 05/25/24 10:00 05/25/24 10:00 05/25/24 10:00 05/25/24 10:00
Intake & Output
05/23/24 05/24/24 05/25/24 05/26/24
06:59 06:59 06:59 06:59
Intake Total 375 / 375 600 / 600
Output Total 1200 / 1200 800 / 800
Balance -825 / -825 -200 / -200
Physical Exam
Physical Exam
General: Frail elderly woman
Cardiac: Distant heart sounds regular rate and rhythm 3/6 crescendo decrescendo murmur at the base non displaced PMI, RRR, no murmurs, No S3, S4, no rubs.
Lungs: Dry crackles bilateral bases
Extremities: No clubbing, cyanosis or edema bilaterally.
Neuro: Grossly nonfocal, awake, alert
[2024-05-25 11:22] LABS: Glucose - Point of Care 331 mg/dl (70-99)
[2024-05-25] MEDS: NOVOLOG FLEXPEN-MODERATE RESISTANCE 7 UNITS SC ×2 (11:55→16:37)
[2024-05-25 12:55] LABS: Hematocrit 29.3 % (37.0-47.0); Hemoglobin 10.3 g/dL (12.0-16.0); Mean Corp Hgb Conc. 35.2 g/dL (33.0-37.0); Mean Corpuscular Hgb 30.7 pg (27.0-31.0); Mean Corpuscular Volume 87.2 fL (81.0-99.0); Mean Platelet Volume 10.2 fL (7.4-10.4); Platelet Count 211 10^3/uL (130-400); Red Blood Cell Count 3.36 10^6/uL (4.20-5.40); White Blood Cell Count 13.7 10^3/uL (4.8-10.8)
[2024-05-25 13:07] LABS: Lactic Acid 3.9 mmol/L (0.7-2.0)
[2024-05-25 13:12] LABS: AST (SGOT) 34 U/L (14-36); Albumin 3.6 g/dl (3.5-5.0); Alkaline Phosphatase 84 U/L (38-126); Blood Urea Nitrogen 18 mg/dl (7-17); Calcium 8.8 mg/dl (8.4-10.2); Carbon Dioxide 20 mmol/L (22-30); Chloride 96 mmol/L (98-107); Estimated Creatinine Clearance 64 ml/min; Glucose 275 mg/dl (70-99); Magnesium 1.7 mg/dl (1.6-2.3); Phosphorus 2.3 mg/dl (2.5-4.5); Potassium 4.7 mmol/L (3.5-5.1); Sodium 129 mmol/L (135-145); Total Bilirubin 0.4 mg/dl (0.2-1.3); Total Protein 5.8 g/dl (6.3-8.2); eGFR > 60.00
[2024-05-25] MEDS: LANTUS 0.1 UNITS SC (13:26)
--- NOTE | 2024-05-25 13:31 | W.PN.HOSP.TC ---
Addendum entered and electronically signed by Merrill Emanuel MD 05/25/24 14:23:
Discussed with daughter over the phone
Original Note:
Today's Communication/Plan
-
Monitor vital signs see plan
Wean oxygen as tolerated
Monitor blood pressure, off Levophed
UA pending
DC Vanco, continue cefepime for now
Assessment / Plan
Assessment / Plan
Physical Exam
General: Well Developed, Well Nourished and No Apparent Distress
HEENT: NormoCephalic, Moist mucous membranes and Atraumatic
Respiratory: Clear
Cardiac: S1/S2 and Regular Rhythm; No Murmur or Rub
GI: Soft, Non Tender, Non Distended and Normal Bowel Sounds; No Organomegaly
Musculoskeletal: No Clubbing, No Cyanosis and No Edema
Skin: No Rash
Neuro: Nonfocal/grossly intact
88F HFmrEF, interstitial fibrosis, atrial fibrillation, aortic stenosis, asthma, hyponatremia, labile hypertension, DM, CVA, seizure disorder, breast cancer with left lumpectomy/radiation mastectomy, right carotid stenosis with stent, restless leg
syndrome, GERD/hiatal hernia, anxiety disorder, seizure disorder, p/w fatigue/dizziness/hypoxia since recent admission. Recently admitted from 05/14 to 05/17 for shortness of breath and hypoxia. She was treated for heart failure with diuresis and
nebulizers for pulmonary fibrosis. She was also found to be in new onset atrial fibrillation and started on Eliquis and amiodarone. Patient was dizzy since discharge and never got better. She developed acute onset of shortness of breath prompting
return. In respiratory distress, very tachypneic, tachycardic, patient was treated with BIPAP overnight and Lasix. Developed severe hypotension resolved with small IVF bolus.
# Acute hypoxemic/hypercarbic respiratory failure multifactorial secondary to acute on chronic HFmrEF versus asthma/interstitial fibrosis flare and possible superimposed PNA
#History of interstitial fibrosis
# History of asthma
-Cardiac BNP from 4800 to 6800
-Check I's and O's, daily weights
-treated w/ BiPAP overnight since weaned to Nasal Cannula, cont CPAP bedtime and prn as per pulm
-40 IV Lasix given, and patient became hypotensive afterwards 500 cc bolus given. now BP better. lactate downtrending. dc further fluids
-Continue DuoNebs
-Dexamethasone 10 mg IV given continue 4 mg every 12
-Also given racemic epinephrine, magnesium in ED
bcx obtained after abx; moniotr. dc vanc. cw cefipime. MRSA neg
procal elevated.
-Pulmonary consult appreciated CPAP bedtime and prn
-Cardio eval appreciated diuresis on hold for now given hypotension and lactic acidosis
# Non-ND troponin elevation secondary to hypoxemia
Troponin trended to peak 0.085 since trended down
Paroxysmal atrial fibrillation
-Continue Eliquis
-Continue amiodarone
-Continue metoprolol
History of aortic stenosis/trace MR/history of small PFO/pulmonary hypertension
Hypotension
Lactic acidosis
Metabolic Acidosis with Respiratory compensation
-Hold lisinopril
now off leviophed
-levophed prn MAP<65
-started low dose midodrine
lactic acuidosis; trend
-Lactic acid high 9.3 trending down unclear source possibly dehydration, non-tachypneic at time of draw, afebrile wbc wnl does not appear septic
CT chest with interstitial opacities within the bilateral lung bases within the right upper lobe groundglass opacities,ossible chronic lung disease with superimposed infectious/inflammatory process.
Acute urinary retention
Currently with Carpenter, DC Carpenter soon
UA pending
Constipation
Laxatives
Hyponatremia
Type 2 diabetes
-metformin discontinued due to lactic acidosis
-sliding scale
History of CVA
-Continue Plavix
Seizure disorder
History of breast cancer with left lumpectomy/radiation with recurrence of mastectomy
History of restless leg syndrome
GERD/hiatal hernia
-Continue Protonix
Anxiety disorder
-Continue Xanax prn
DNR/DNI
DVT prophylaxis�Eliquis
I spent a total of 52 minutes with the patient or on the floor. More than 50% of this time involved counseling and coordination of care.
Anticipated Discharge: > 48 hours
Subjective/Interval History
-
Date of Service: May 25, 2024
denies pain
Objective Data
-
Labs:
Laboratory Results
05/25/24
12:47
WBC 13.7 H
Hgb 10.3 L
Hct 29.3 L
Plt Count 211
Sodium 129 L
Potassium 4.7
Chloride 96 L
Carbon Dioxide 20 L
BUN 18 H
Creatinine 0.6
Glucose 275 H
Calcium 8.8
Total Bilirubin 0.4
AST 34
ALT Pending
Alkaline Phosphatase 84
Vital Signs:
Vital Signs
Temp Pulse Resp BP Pulse Ox
98.1 F 71 16 123/61 98
05/25/24 03:30 05/25/24 11:50 05/25/24 11:50 05/25/24 10:00 05/25/24 11:50
I&O
05/24/24 05/25/24 05/26/24
06:59 06:59 06:59
Intake Total 375 / 375 600 / 600
Output Total 1200 / 1200 800 / 800
Balance -825 / -825 -200 / -200
[2024-05-25 13:54] LABS: ALT (SGPT) < 10 U/L (0-35)
[2024-05-25] MEDS: COLACE 100 MG PO ×2 (14:38→19:56)
[2024-05-25] MEDS: NEUTRA-PHOS POWDER PACKET 250 MG PO ×3 (14:39→19:57)
--- NOTE | 2024-05-25 15:01 | PTCARENOTE ---
Assumed care of patient at beginning of this shift from previous RN; levophed off during hospice community liaison. BP 130/66 initially with repeat 113/61; midodrine given as scheduled. Previous shift unable to obtain blood draws; this RN also tried without
success; Dr Emanuel aware. Phlebotomy notified this morning, but did not draw until 12:47. Lactic acid 3.9, Na 129, Ph 2.3, CO2 20. Dr Emanuel made aware of results. IVF initially ordered, but then he d/c'd; this nurse confirmed that IVF will not be
ordered at this time. Patient also c/o feeling 'congested' with fine exp wheeze now noted anteriorly; patient has weak cough but non-productive. In addition, she states she has not had a bm this admission. Dr Emanuel updated on all; colace ordered.
Daughter at bedside and requesting to speak with physician; Dr Emanuel updated daughter. See worklist for full assessment.
[2024-05-25 16:35] LABS: Glucose - Point of Care 305 mg/dl (70-99)
[2024-05-25] MEDS: MAXIPIME 1000 MG IV (16:43)
--- NOTE | 2024-05-25 17:16 | W.PN.UPDATE ---
Update Note
Progress Note Update
Given EKG abnormalities Limited echocardiogram was performed and compared to recent echo 05/15/2024. Today's echocardiogram revealed normal left ventricular chamber size. Mildly reduced left ventricular systolic function. Left ventricular ejection
fraction is 40-45%. The apex, inferolateral, inferior and anterior perez are hypokinetic. Normal right ventricular size. Normal right ventricular systolic function.
I compared echocardiogram [id number] visually from 05/15/2024 and no significant change in wall motion abnormality noted. Previously wall motion analysis was felt to be global but appears more segmental when comparison [id number] and unchanged.
Wall motion abnormality and segmental nature likely suggestive of coronary disease is likely etiology of EKG changes. Given patient is not having chest pain and troponin is not significantly elevated in the setting of sepsis/infection/inflammation
at this time we will continue to conservatively manage but eventually consider ischemic assessment.
-She is currently on Plavix and Eliquis
-I do not have recent lipids and I have ordered; I have started lipid-lowering
-Continue to cautiously monitor.
[2024-05-25] MEDS: LIPITOR 40 MG PO (17:47)
[2024-05-25 17:56] LABS: Urine Albumin Trace (Neg - Trace); Urine Bilirubin Negative (Negative); Urine Glucose Negative (Negative); Urine Ketone Negative (Negative); Urine Leukocyte Negative (Negative); Urine Nitrite Negative (Negative); Urine Occult Blood Negative (Negative); Urine Specific Gravity 1.015 (<1.030); Urine Urobilinogen Negative (Neg - 1+)
[2024-05-25 17:58] LABS: Urine Character Clear (Clear); Urine Color Yellow
[2024-05-25] MEDS: XANAX 0.5 MG PO (19:56)
[2024-05-25 20:54] LABS: Lactic Acid 3.3 mmol/L (0.7-2.0)
[2024-05-25] MEDS: MELATONIN 5 MG PO (22:19)
[2024-05-26] VITALS (14 sets, daily range): BP systolic 121–152; BP diastolic 55–87; O2SAT 98; BMI 20.9
[2024-05-26] MEDS: MAXIPIME 1000 MG IV ×2 (01:03→09:14)
[2024-05-26] MEDS: STERILE WATER FOR INJECTION 10 ML IV ×3 (01:03→15:06)
[2024-05-26 05:45] LABS: Hematocrit 34.3 % (37.0-47.0); Hemoglobin 11.7 g/dL (12.0-16.0); Mean Corp Hgb Conc. 34.1 g/dL (33.0-37.0); Mean Corpuscular Hgb 30.8 pg (27.0-31.0); Mean Corpuscular Volume 90.3 fL (81.0-99.0); Mean Platelet Volume 10.6 fL (7.4-10.4); Platelet Count 210 10^3/uL (130-400); White Blood Cell Count 14.8 10^3/uL (4.8-10.8)
[2024-05-26 05:49] LABS: Lactic Acid 2.4 mmol/L (0.7-2.0)
[2024-05-26 05:51] LABS: ALT (SGPT) 15 U/L (0-35); AST (SGOT) 35 U/L (14-36); Alkaline Phosphatase 94 U/L (38-126); Blood Urea Nitrogen 19 mg/dl (7-17); Calcium 9.6 mg/dl (8.4-10.2); Carbon Dioxide 26 mmol/L (22-30); Chloride 95 mmol/L (98-107); Estimated Creatinine Clearance 55 ml/min; Glucose 214 mg/dl (70-99); HDL Cholesterol 63 mg/dl; LDL Cholesterol, Calculated 120 mg/dl; Magnesium 1.8 mg/dl (1.6-2.3); Phosphorus 3.1 mg/dl (2.5-4.5); Sodium 132 mmol/L (135-145); Total Bilirubin 0.4 mg/dl (0.2-1.3); Total Cholesterol 209 mg/dl (50-199); Total Protein 6.6 g/dl (6.3-8.2); Triglyceride 132 mg/dl (10-149); Very Low Density Lipoprotein 26 mg/dl (0-30); eGFR > 60.00
[2024-05-26] MEDS: DECADRON 4 MG IV (06:46)
[2024-05-26] MEDS: NOVOLOG FLEXPEN-MODERATE RESISTANCE 3 UNITS SC (07:57)
[2024-05-26 07:59] LABS: Glucose - Point of Care 220 mg/dl (70-99)
[2024-05-26] MEDS: PACERONE 200 MG PO (09:11)
[2024-05-26] MEDS: PROTONIX 20 MG PO (09:11)
[2024-05-26] MEDS: COLACE 100 MG PO ×2 (09:12→19:53)
[2024-05-26] MEDS: ELIQUIS 2.5 MG PO ×2 (09:12→19:53)
[2024-05-26] MEDS: ProAmatine 2.5 MG PO (09:12)
[2024-05-26] MEDS: PLAVIX 75 MG PO (09:12)
[2024-05-26] MEDS: NEUTRA-PHOS POWDER PACKET 250 MG PO ×2 (09:13→14:07)
[2024-05-26] MEDS: OCUVITE SOFTGEL 1 CAP PO ×2 (09:13→19:56)
--- NOTE | 2024-05-26 09:26 | W.PN.CARDCBS ---
Addendum entered and electronically signed by Deana Funes DO 05/26/24 09:55:
I saw and examined the patient.
The Title Searcher's note was reviewed and I agree with the note.
Comment: Seen and examined with nursing at bedside. Still complains of shortness of breath and is constipated. No chest pain
GEN: No distress, awake, alert, oriented x3. on supp O2
HEENT: mmm
LUNGS: Crackles B/L bases, no wheezes
CV: Reg, S1/S2, 2/6 syst LSB
ABD: soft, BS+, NT/ND
EXT: No edema
Plan:
Multifactorial hypoxic/hypercarbic respiratory failure with HFrEF and possible chronic interstitial lung disease
-She remains on 2 L nasal cannula with adequate oxygen saturation; wean O2 and assess for home needs
-Resume IV Lasix
-Increased lactic acid of unclear significance being worked up for infection
-Newly reduced heart function, EF 40-45% in the setting of recent rapid atrial fibrillation.
-Goal-directed medical therapy has been limited by hypotension. She is not a candidate for SGLT2 inhibitors given history of UTIs
-Significant coronary atherosclerosis on non-cardiac CT imaging with abnormal EKG and mildly elevated troponins. At this point given advanced age and other comorbidities we will proceed with outpatient ischemic evaluation
-History of new onset rapid atrial fibrillation last admission who remains in sinus rhythm on amiodarone. Dose was recently decreased on 05/22/2024. Continue Eliquis 2.5 mg twice daily
-History of multiple ischemic strokes and history of right carotid stent on Plavix. Continue.
-Dysphagia with aspiration precautions and dysphagia diet
-PT/OT
-d/w nursing
Original Note:
Today's Communication / Plan
-
IV lasix
wean supp O2
remains in SR. continue amio 200mg daily
Impression / Plan
-
PCP: Nuzhat Gold
Psychological Operations: Dr. Deana Funes
Impression:
Presented 05/13/2024 with JEAN BAPTISTE, weakness, dizziness
Hypercarbia
Hypotension
Troponin elevation likely nonischemic troponin elevation
Recent admission to 05/14-05/17/24 for afib with RVR, CHF, pulm fibrosis/ILD
History of multiple ischemic strokes which have been felt likely to represent small vessel disease and atherosclerosis.
Autonomic dysfunction/hypotension/orthostasis treated with midodrine as needed
Patient has not been compliant with abdominal binder, compressions for known orthostatic hypotension and has not taken midodrine consistently due to hypertension
Type 2 diabetes with diabetic neuropathy
History of seizure disorder
Breast Ca with Radiation Therapy s/p Left Mastectomy
GERD/Hiatal Hernia
Carotid stenosis, right s/p stent
Hypercholesterolemia
RLS
UTIs
Hysterectomy
History of bowel resection
Back surgery
Iron Deficiency
Congenital malformation of esophagus
Postmenopausal atrophic vaginitis
Gait difficulty
Dysphagia
Hyponatremia
Former smoker
DNR code status
Echocardiogram April 15, 2022 finds small left ventricle with moderate left ventricular hypertrophy and ejection fraction of 60 to 65%. There is mild aortic stenosis with peak and mean gradients of 28 and 15 mmHg and calculated aortic valve area of
1.5 cm�.
3 weeks of cardiac monitoring May 2021 failed to demonstrate atrial fibrillation
Echo 05/15/2024: EF 40 to 45%, global hypokinesis, stage II diastolic dysfunction, MAC, mild MR, mild to moderate with peak/mean gradients 27/18 mmHg, KAYLEIGH 1.4 cm�, trace AR
ECHO 05/25/24: EF 40 to 45%, apex, inferolateral, inferior and anterior perez are hypokinetic, appears stable compared to prior.
Plan:
-Presented with weakness and dizziness. remains with restless legs/LE heaviness this AM
-Lasix had been held due to hypotension after receiving 40mg IV in ER on arrival then given IVF bolus. Lactic acid was elevated as was Pro-Malick. Workup ongoing per primary service, UA negative. Blood pressures appear improved on midodrine 2.5mg
TID (was using prn prior to admission)
-Patient complaining of some shortness of breath this morning. O2 sats stable in 97-99%. will give IV lasix 20mg today and place back on po lasix 20mg daily in AM
-EF 40-45%, stable. suspected tachy mediated CM. GDMT currently limited by hypotension. holding OP toprol, lisinopril, resume as able
-She is not a candidate for SGLT2 inhibitors given history of UTIs
-trop 0.085 and downtrending. Severe coronary artery calcification noted by chest CT. Consider for outpatient ischemic evaluation.
-remains in SR upon review of tele overnight. continue amiodarone 200mg daily (dose decreased as OP 05/22 from BID).
-Continue eliquis, plavix (history of CVAs)
-PT/OT
-d/w nursing
Progress Note - Psychological Operations
Subjective
Date of Service: May 26, 2024
Reports some SOB/tightness this AM and restless legs
Objective
Labs:
05/26/24 05:13
05/26/24 05:13
Labs
Hgb 11.7 g/dL (12.0-16.0) L 05/26/24 05:13
Hct 34.3 % (37.0-47.0) L 05/26/24 05:13
Plt Count 210 10^3/uL (130-400) 05/26/24 05:13
Sodium 132 mmol/L (135-145) L 05/26/24 05:13
Potassium 5.0 mmol/L (3.5-5.1) 05/26/24 05:13
BUN 19 mg/dl (7-17) H 05/26/24 05:13
Creatinine 0.7 mg/dL (0.6-1.0) 05/26/24 05:13
Glucose 214 mg/dl (70-99) H 05/26/24 05:13
Troponins
05/23/24 05/24/24 05/24/24
16:55 12:06 15:51
Troponin I 0.041 H* 0.085 H* 0.065 H*
Vital Signs and I&O:
Vital Signs
Temp Pulse Resp BP Pulse Ox
98.7 F 76 15 121/77 98
05/26/24 08:49 05/26/24 09:12 05/26/24 04:00 05/26/24 09:12 05/26/24 04:00
Vital Signs
Temp Pulse Resp BP Pulse Ox
98.7 F 76 15 121/77 98
05/26/24 08:49 05/26/24 09:12 05/26/24 04:00 05/26/24 09:12 05/26/24 04:00
Intake & Output
05/24/24 05/25/24 05/26/24 05/27/24
07:59 07:59 07:59 07:59
Intake Total 375 / 375 600 / 600 480 / 480
Output Total 1200 / 1200 800 / 800 1100 / 1100
Balance -825 / -825 -200 / -200 -620 / -620
Physical Exam
Physical Exam
GEN: No distress, awake, alert, oriented x3. on supp O2
HEENT: supple, anicteric, mmm, eomi
LUNGS: Crackles B/L bases, no wheezes
CV: Reg, S1/S2, 2/6 syst LSB
ABD: soft, BS+, NT/ND
EXT: No cyanosis, clubbing, edema
NEURO: Gross non-focal
SKIN: Warm, pink, dry. No rash
[2024-05-26] MEDS: DUONEB INH (10:14)
[2024-05-26] MEDS: LASIX 20 MG IV (10:32)
[2024-05-26] MEDS: AMARYL 2 MG PO (10:33)
[2024-05-26] MEDS: MIRALAX 17 GRAMS PO (10:33)
--- NOTE | 2024-05-26 11:10 | PN.CDI ---
CDI
- -
CDI:
Physician Documentation Request
Admit Date: 05/23/24 20:05
Dear Doctor Adelfo,
Patient admitted for acute heart failure.
05/24 Hospitalist PN: 'Hypotension...Hold lisinopril -IVF gentle hydration -levophed prn MAP<65 -started low dose midodrine'
Selected Entries
05/24/24
14:58 05/24/24
16:00
Blood pressure 90/50 91/39
MAP (cuff-Tu Monitor) 64 55
Levophed Titration
05/24/24
17:20 05/24/24
17:34 05/24/24
18:00
CURRENT dosage in mcg/min 2 2 3
05/24/24
19:00
CURRENT dosage in mcg/min 3
Please clarify which of the following is the most likely etiology of the above symptoms and treatment rendered:
Cardiogenic shock
Hypovolemic shock - indicate if due to surgery, trauma or other etiology
Shock, unknown type
Hypotension - indicate type/etiology, such as idiopathic, neurogenic or orthostatic, post-procedural, postoperative, due to hemodialysis, chronic, drug induced (indicate drug), etc.
Hypotension - unknown type/etiology
Other
Use of terms such as suspected, likely, concern for, or probable (associated with a specific diagnosis that is being evaluated, monitored, or treated as if it exists) are acceptable and can be coded in the inpatient setting, when documented at the
time of discharge.
Thank you,
Yin Anaya RN, BSN
CDI Specialist
Available via [employer] text
Please use your independent medical judgment in providing your response.
[2024-05-26] MEDS: DUONEB 3 ML INH ×3 (11:32→19:57)
[2024-05-26] MEDS: NOVOLOG FLEXPEN-MODERATE RESISTANCE 7 UNITS SC (11:52)
[2024-05-26 12:01] LABS: Glucose - Point of Care 312 mg/dl (70-99)
--- NOTE | 2024-05-26 12:10 | W.PN.PUL3 ---
Today's Communication / Plan
-
Doing well on RA, no new complaints
Can stop steroids from my perspective
Ongoing diuresis with midodrine
PT/OT, SNF eval
Transfer out of IMU
We will sign off at this time, please call with questions
Assessment
-
Patient is an 88-year-old female with previous history of hypertension, diabetes, history of CVA, history of breast cancer, GERD, recent admission for CHF (d/c 05/17/24) presenting from [facility] via EMS for evaluation of presenting with
fatigue and dizziness since recent admission. She notes worsening SOB, was tried on increased lasix dose as OP but did not help. Repeat CXR remains similar but proBNP elevated from 4430 to 6840. VBG showing acute hypercarbia 7.27/54. O2 >90% she
is placed on 2L satting 97%. Did not require O2 on last admission. We are consulted for eval.
Acute hypercarbic respiratory failure, new onset
Acute on chronic CHF exacerbation-reduced EF
SOB
Possible underlying chronic ILD-suspect very mild per CT 05/15/2024
Hyperglycemia
Hyponatremia
Mild anemia-hemoglobin 11.3
Lactic acidosis
Conditions present prior to admission:
HTN
NIDDM
Breast Ca with Radiation Therapy s/p Left Mastectomy
GERD/Hiatal Hernia
Carotid stenosis, right s/p stent
History of seizures
Hypercholesterolemia
History of stroke 2020
RLS
UTIs
Hysterectomy
History of bowel resection
Back surgery
Iron Deficiency
Congenital malformation of esophagus
Postmenopausal atrophic vaginitis
Gait difficulty
Dysphagia
Former smoker
Moderate aortic stenosis
Diastolic dysfunction
Reduced EF-40%-was 60%
Mild bronchiectasis
Plan
Recent respiratory decompensation likely due to fluid overload/CHF and less likely due to mild interstitial pulmonary fibrosis
She is placed on 2L NC, satting 97%-- now weaned to RA
Wean as tolerated
Multifactorial SOB is noted
May benefit from SNF placement
Repeat CXR appears largely unchanged
proBNP increased from 4430 to 6840
Cards eval, would benefit from more diuresis
Echocardiogram 05/15/2024-EF 40-45%, stage II diastolic dysfunction, mild mitral regurgitation, moderate aortic stenosis
Atrial fibrillation rate control
Now on amiodarone 200 mg twice daily-monitor for toxicity
Eliquis continues
Aspiration precautions per protocol
Speech therapy evaluation 05/14/2014 noted-recommending video swallow, regular diet thin liquids and consider GI consultation
VBG noted with CO2 elevation
ABG showing (no CO2 elevation) but has metabolic acidosis, lactate elevated, dykes scan negative
Repeat lactate improving, unclear cause
Repeat UA/cultures
PRN CPAP which would be beneficial in CHF patients
Possible ILD noted on prior imaging
Prior history of lung disease is not noted
No prior known history of lung disease, nonsmoker. Trivial use socially in her youth for a total of 5 years
COPD history in her father who was a smoker
Denies exposure history
No indication for steroids from our perspective, can d/c
Outpatient pulmonary [id number] need PFTs especially in light of amiodarone load and maintenance going forward--has not yet seen us to do readmission
DVT prophylaxis-on Eliquis/resume
Nutrition
Aspiration precautions
PT/OT
Discharge planning per team
Diagnostic Data
Chest X-Ray: 05/14/24- Suspect diffuse interstitial pneumonitis and component of pulmonary vascular congestion. Cannot rule out superimposed left basilar pneumonia and/or underlying chronic interstitial changes.
09/26/23- No acute disease of the chest. Large hiatal hernia. Enlarged.
CT chest 05/15/2024-mild reticular interstitial thickening at the lung bases with mild basilar bronchiectasis suggesting mild interstitial fibrosis, superimposed interstitial pneumonitis suspected with small bilateral pleural effusions and severe
coronary artery calcifications and large hiatal hernia
Echo: 04/23/22- 1. Small left ventricle with moderate left ventricular hypertrophy and preserved systolic function, EF 60-65%
2. Thickened mitral leaflets, mitral annular calcification, trace mitral regurgitation, and left atrial dilatation
3. Mild aortic stenosis, peak/mean gradient 28/15 mmHg, aortic valve area 1.5 cm2
4. Normal right heart with mild pulm hypertension, 36 mmHg systolic
5. Small patent foramen ovale
Echocardiogram 05/15/2024-EF 40-45%, stage II diastolic dysfunction, mild mitral regurgitation, moderate aortic stenosis
-----
Total time spent on this encounter __35__ includes review of history, physical exam, medications, laboratory data, personal review of imaging, extensive review of outpatient records, discussion with care team and respiratory therapy.
Subjective Data
-
Date of Service:
Date of Service: May 26, 2024
Chief Complaint: Pulmonary Follow Up
Subjective:
Doing well, stable on Ra
Offers no complaints
Objective Data
Data Reviewed
Vital Signs / I&O / Oxygen:
Vital Signs
Temp Pulse Resp BP Pulse Ox
97.4 F 75 16 150/79 100
05/26/24 11:46 05/26/24 11:33 05/26/24 11:33 05/26/24 10:32 05/26/24 11:33
Intake and Output
05/25/24 05/26/24 05/27/24
06:59 06:59 06:59
Intake Total 600 / 600 480 / 480
Output Total 800 / 800 1100 / 1100
Balance -200 / -200 -620 / -620
SaO2 100
Nasal Cannula flow liters per 2
minute
Physical Exam
General: Comfortable, Other (NAD) and Other (anxious appearing)
HEENT: Normocephalic, Anicteric and Moist Mucous Membranes
Cardiovascular: S1-S2 and Regular Rhythm
Respiratory: Clear and Non-Labored Respirations
GI: Soft, Non Distended and Non Tender
Neurology: Awake, Alert, No Motor Deficits and Other (confused, does not always answer appropriately)
Skin: Warm, Dry and Good Color
Labs/Micro/Reports
Lab Data
05/26/24 05:13
05/26/24 05:13
Microbiology
05/24/24 22:55 Blood/Venous Blood Culture - Preliminary
No Growth in 24 hours- Final report to follow
05/24/24 18:13 Blood/Venous Blood Culture - Preliminary
No Growth in 24 hours- Final report to follow
05/24/24 12:06 Nose Nasal Screen MRSA (PCR) - Final
MRSA not detected - performed by PCR methodology.
--- NOTE | 2024-05-26 12:36 | W.PN.HOSP.TC ---
Today's Communication/Plan
-
Monitor vital signs see plan
Lasix
Wean oxygen as tolerated
Start Amaryl
Continue with antibiotics
laxatives
Discussed with daughter over the phone
Assessment / Plan
Assessment / Plan
Physical Exam
General: Well Developed, Well Nourished and No Apparent Distress
HEENT: NormoCephalic, Moist mucous membranes and Atraumatic
Respiratory: Clear,+ wheezing
Cardiac: S1/S2 and Regular Rhythm; No Murmur or Rub
GI: Soft, Non Tender, Non Distended and Normal Bowel Sounds
Musculoskeletal: No Clubbing, No Cyanosis and No Edema
Skin: No Rash
Neuro: Nonfocal/grossly intact
88F HFmrEF, interstitial fibrosis, atrial fibrillation, aortic stenosis, asthma, hyponatremia, labile hypertension, DM, CVA, seizure disorder, breast cancer with left lumpectomy/radiation mastectomy, right carotid stenosis with stent, restless leg
syndrome, GERD/hiatal hernia, anxiety disorder, seizure disorder, p/w fatigue/dizziness/hypoxia since recent admission. Recently admitted from 05/14 to 05/17 for shortness of breath and hypoxia. She was treated for heart failure with diuresis and
nebulizers for pulmonary fibrosis. She was also found to be in new onset atrial fibrillation and started on Eliquis and amiodarone. Patient was dizzy since discharge and never got better. She developed acute onset of shortness of breath prompting
return. In respiratory distress, very tachypneic, tachycardic, patient was treated with BIPAP overnight and Lasix. Developed severe hypotension resolved with small IVF bolus.
# Acute hypoxemic/hypercarbic respiratory failure multifactorial secondary to acute on chronic HFmrEF versus asthma/interstitial fibrosis flare and possible superimposed PNA
#History of interstitial fibrosis
# History of asthma
-Cardiac BNP from 4800 to 6800
-Check I's and O's, daily weights
-treated w/ BiPAP initially, cont CPAP bedtime and prn as per pulm. Currently satting well on 2 L. Wean oxygen as tolerated
Now blood pressure better, shortness of breath 05/26. IV Lasix given. Continue with Lasix
-Continue DuoNebs
Wean Decadron
bcx obtained after abx; monitor. dc vanc. cw cefipime. MRSA neg
procal elevated.
-Pulmonary consult appreciated CPAP bedtime and prn
Cardiology following, continue with diuresis
Elevated troponin likely secondary to nonischemic myocardial injury
Does appear to have coronary artery disease however
Cardiology following, will try to proceed with outpatient ischemic evaluation. Newly reduced heart function with a EF 40 to 45% in the setting of recent rapid atrial fibrillation.
Paroxysmal atrial fibrillation
Diagnosed on last admission
-Continue Eliquis
-Continue amiodarone
-Continue metoprolol
Lactic acidosis
Slowly improving
Continue to trend lactate
Could also be secondary to metformin which should not be continued
History of aortic stenosis/trace MR/history of small PFO/pulmonary hypertension
Hypotension
Lactic acidosis
Metabolic Acidosis with Respiratory compensation
-Hold lisinopril
Shock, unknown type
now off Levophed
-started low dose midodrine
lactic acidosis; trend
-Lactic acid high 9.3 trending down unclear source possibly dehydration, non-tachypneic at time of draw, afebrile wbc wnl does not appear septic
CT chest with interstitial opacities within the bilateral lung bases within the right upper lobe groundglass opacities,possible chronic lung disease with superimposed infectious/inflammatory process.
Acute urinary retention
Now off Carpenter, voiding trial
UA without acute abnormality however was checked after antibiotics
Constipation
Laxatives
Hyponatremia
Type 2 diabetes
-metformin discontinued due to lactic acidosis
-sliding scale
The steroids, start Amaryl
History of CVA
-Continue Plavix
Seizure disorder
History of breast cancer with left lumpectomy/radiation with recurrence of mastectomy
History of restless leg syndrome
GERD/hiatal hernia
-Continue Protonix
Anxiety disorder
-Continue Xanax prn
DNR/DNI
DVT prophylaxis�Eliquis
I spent a total of 52 minutes with the patient or on the floor. More than 50% of this time involved counseling and coordination of care.
Anticipated Discharge: > 48 hours
Subjective/Interval History
-
Date of Service: May 26, 2024
denies pain
Objective Data
-
Labs:
Laboratory Results
05/26/24
05:13
WBC 14.8 H
Hgb 11.7 L
Hct 34.3 L
Plt Count 210
Sodium 132 L
Potassium 5.0
Chloride 95 L
Carbon Dioxide 26
BUN 19 H
Creatinine 0.7
Glucose 214 H
Calcium 9.6
Total Bilirubin 0.4
AST 35
ALT 15
Alkaline Phosphatase 94
Vital Signs:
Vital Signs
Temp Pulse Resp BP Pulse Ox
97.4 F 85 19 142/82 100
05/26/24 11:46 05/26/24 12:00 05/26/24 12:00 05/26/24 12:00 05/26/24 12:25
I&O
05/25/24 05/26/24 05/27/24
06:59 06:59 06:59
Intake Total 600 / 600 480 / 480
Output Total 800 / 800 1100 / 1100 150 / 150
Balance -200 / -200 -620 / -620 -150 / -150
[2024-05-26 13:19] LABS: Lactic Acid 4.1 mmol/L (0.7-2.0)
[2024-05-26] MEDS: ProAmatine PO ×2 (14:06→16:54)
[2024-05-26] MEDS: ROCEPHIN 1000 MG IV (15:06)
[2024-05-26] MEDS: DULCOLAX 10 MG RECTAL (15:07)
[2024-05-26] MEDS: VIBRAMYCIN 100 MG PO ×2 (15:07→19:56)
--- NOTE | 2024-05-26 15:23 | CM ---
Addendum entered by Desiree Mccallum RN 05/26/24 15:35:
Daughter called back - 2nd choice SNF is [facility], third choice is [facility]. Patient still hoping for [facility] if possible. Additional SNF referrals added.
Original Note:
Patient with Acute hypoxemic/hypercarbic respiratory failure. Room air. Receiving IV Abx, IV Steroids. PT & OT recommend skilled rehab.
Spoke with patient's daughter Parvin; daughter would like patient to go to short term rehab before returning home and she will speak with her mother about that. She prefers [facility]. She will speak to patient about alternate SNF choices
if [facility] is unavailable.
Spoke with Satniago Stoner; she will review the referral. They do not currently have any open beds but may have by Wed-. Codie is covering for [facility] this and Wednesday and CM can contact her when patient is ready.
Plan follow up with [facility] for acceptance.
[2024-05-26] MEDS: LIPITOR PO ×2 (16:49→16:55)
[2024-05-26] MEDS: DECADRON 2 MG IV (16:49)
[2024-05-26 17:32] LABS: Glucose - Point of Care 198 mg/dl (70-99)
[2024-05-26] MEDS: NOVOLOG FLEXPEN-MODERATE RESISTANCE 1 UNITS SC (17:51)
--- NOTE | 2024-05-26 17:58 | PTCARENOTE ---
Rec'd pt this AM. Pt extremely anxious but responds to support. able to void in BSC. laxatives and suppository given with some relief, small BM at this time. Pt's complained of SOB but relieved with Neb tx and IV lasix. vital signs stable.
[2024-05-26] MEDS: MELATONIN 5 MG PO (19:56)
[2024-05-26] MEDS: XANAX 0.5 MG PO (19:56)
[2024-05-26 20:09] LABS: Lactic Acid 3.6 mmol/L (0.7-2.0)
[2024-05-26 21:47] LABS: Glucose - Point of Care 301 mg/dl (70-99)
[2024-05-27] VITALS (12 sets, daily range): BP systolic 126–167; BP diastolic 62–82; BMI 21.2
--- NOTE | 2024-05-27 03:44 | PTCARENOTE ---
Pt received at beginning of shift resting in bed. AAOx3. [place]. Slightly forgetful. Denies pain or discomfort. Lung sounds diminished with slight exp wheeze. POX 99 on 2L NC. Can be tachypneic at times. Occasional dnpc. VSS. Afebrile. SR on CM. Using
BSC to void throughout shift with assist of 1. Weak on her legs. Rest of assessment as documented. Turns self in bed. Just needs assistance with pillow placement behind back for comfort. Call bartlett remains within reach. Will continue to monitor.
[2024-05-27 04:51] LABS: Hematocrit 30.1 % (37.0-47.0); Hemoglobin 10.6 g/dL (12.0-16.0); Mean Corp Hgb Conc. 35.2 g/dL (33.0-37.0); Mean Corpuscular Hgb 31.3 pg (27.0-31.0); Mean Corpuscular Volume 88.8 fL (81.0-99.0); Mean Platelet Volume 10.2 fL (7.4-10.4); Platelet Count 181 10^3/uL (130-400); Red Blood Cell Count 3.39 10^6/uL (4.20-5.40); Red Cell Dist. Width 14.6 % (11.5-14.5); White Blood Cell Count 12.2 10^3/uL (4.8-10.8)
[2024-05-27] MEDS: DECADRON 2 MG IV (05:00)
[2024-05-27] MEDS: FLUSH (NSS) 2 FLUSH IV (05:01)
[2024-05-27 05:18] LABS: ALT (SGPT) 14 U/L (0-35); AST (SGOT) 30 U/L (14-36); Albumin 3.4 g/dl (3.5-5.0); Alkaline Phosphatase 78 U/L (38-126); Blood Urea Nitrogen 20 mg/dl (7-17); Carbon Dioxide 28 mmol/L (22-30); Chloride 93 mmol/L (98-107); Estimated Creatinine Clearance 65 ml/min; Glucose 172 mg/dl (70-99); Magnesium 1.6 mg/dl (1.6-2.3); Phosphorus 3.1 mg/dl (2.5-4.5); Potassium 5.1 mmol/L (3.5-5.1); Sodium 131 mmol/L (135-145); Total Bilirubin 0.4 mg/dl (0.2-1.3); Total Protein 5.7 g/dl (6.3-8.2); eGFR > 60.00
[2024-05-27] MEDS: DUONEB 3 ML INH ×2 (07:17→11:08)
[2024-05-27 08:09] LABS: Glucose - Point of Care 145 mg/dl (70-99)
[2024-05-27] MEDS: NOVOLOG FLEXPEN-MODERATE RESISTANCE SC (09:02)
[2024-05-27] MEDS: LASIX 20 MG PO (09:07)
[2024-05-27] MEDS: VIBRAMYCIN 100 MG PO ×2 (09:07→20:14)
[2024-05-27] MEDS: PROTONIX 20 MG PO (09:08)
[2024-05-27] MEDS: PLAVIX 75 MG PO (09:08)
[2024-05-27] MEDS: ELIQUIS 2.5 MG PO ×2 (09:08→20:15)
[2024-05-27] MEDS: PACERONE 200 MG PO (09:08)
[2024-05-27] MEDS: AMARYL 2 MG PO (09:08)
[2024-05-27] MEDS: OCUVITE SOFTGEL 1 CAP PO ×2 (09:08→20:14)
[2024-05-27] MEDS: COLACE 100 MG PO ×2 (09:09→20:14)
[2024-05-27] MEDS: ProAmatine 2.5 MG PO (09:09)
[2024-05-27] MEDS: MIRALAX 17 GRAMS PO (11:53)
--- NOTE | 2024-05-27 11:54 | W.PN.HOSP.TC ---
Today's Communication/Plan
-
monitor vitals
see plan
PT/OT
laxatives
cw abx
dc decadron
lasix per cardiology
Assessment / Plan
Assessment / Plan
Physical Exam
General: Well Developed, Well Nourished and No Apparent Distress
HEENT: NormoCephalic, Moist mucous membranes and Atraumatic
Respiratory: Clear,+ wheezing
Cardiac: S1/S2 and Regular Rhythm; No Murmur or Rub
GI: Soft, Non Tender, Non Distended and Normal Bowel Sounds
Musculoskeletal: No Clubbing, No Cyanosis and No Edema
Skin: No Rash
Neuro: Nonfocal/grossly intact
88F HFmrEF, interstitial fibrosis, atrial fibrillation, aortic stenosis, asthma, hyponatremia, labile hypertension, DM, CVA, seizure disorder, breast cancer with left lumpectomy/radiation mastectomy, right carotid stenosis with stent, restless leg
syndrome, GERD/hiatal hernia, anxiety disorder, seizure disorder, p/w fatigue/dizziness/hypoxia since recent admission. Recently admitted from 05/14 to 05/17 for shortness of breath and hypoxia. She was treated for heart failure with diuresis and
nebulizers for pulmonary fibrosis. She was also found to be in new onset atrial fibrillation and started on Eliquis and amiodarone. Patient was dizzy since discharge and never got better. She developed acute onset of shortness of breath prompting
return. In respiratory distress, very tachypneic, tachycardic, patient was treated with BIPAP overnight and Lasix. Developed severe hypotension resolved with small IVF bolus.
# Acute hypoxemic/hypercarbic respiratory failure multifactorial secondary to acute on chronic HFmrEF versus asthma/interstitial fibrosis flare and possible superimposed PNA
#History of interstitial fibrosis
# History of asthma
-Cardiac BNP from 4800 to 6800
-Check I's and O's, daily weights
-treated w/ BiPAP initially, cont CPAP bedtime and prn as per pulm. now on room air. Wean oxygen as tolerated
Now blood pressure better, shortness of breath 05/26. Continue with Lasix
-Continue DuoNebs prn
dc further decadron per pulm
bcx obtained after abx; monitor. cw abx. MRSA neg
procal elevated.
-Pulmonary consult appreciated CPAP bedtime and prn
Cardiology following, continue with diuresis
Elevated troponin likely secondary to nonischemic myocardial injury
Does appear to have coronary artery disease however
Cardiology following, will try to proceed with outpatient ischemic evaluation. Newly reduced heart function with a EF 40 to 45% in the setting of recent rapid atrial fibrillation.
Paroxysmal atrial fibrillation
Diagnosed on last admission
-Continue Eliquis
-Continue amiodarone
-Continue metoprolol
Lactic acidosis
Slowly improving
Continue to trend lactate
Could also be secondary to metformin which should not be continued
History of aortic stenosis/trace MR/history of small PFO/pulmonary hypertension
Hypotension
Lactic acidosis
Metabolic Acidosis with Respiratory compensation
-Hold lisinopril
Shock, unknown type
now off Levophed
-started low dose midodrine
lactic acidosis; trend
-Lactic acid high 9.3 trending down unclear source possibly dehydration, non-tachypneic at time of draw, afebrile wbc wnl does not appear septic
CT chest with interstitial opacities within the bilateral lung bases within the right upper lobe groundglass opacities,possible chronic lung disease with superimposed infectious/inflammatory process.
Acute urinary retention
Now off Carpenter, voiding trial
UA without acute abnormality however was checked after antibiotics
hx of dysphagia per speech
last admission was instructed to be on mildly thick liquids
Constipation
Laxatives; suppository
Hyponatremia
Type 2 diabetes
-metformin discontinued due to lactic acidosis
-sliding scale
dc steroids, start Amaryl
History of CVA
-Continue Plavix
Seizure disorder
History of breast cancer with left lumpectomy/radiation with recurrence of mastectomy
History of restless leg syndrome
GERD/hiatal hernia
-Continue Protonix
Anxiety disorder
-Continue Xanax prn
DNR/DNI
DVT prophylaxis�Eliquis
I spent a total of 51 minutes with the patient or on the floor. More than 50% of this time involved counseling and coordination of care.
Anticipated Discharge: > 48 hours
Subjective/Interval History
-
Date of Service: May 27, 2024
denies pain
Objective Data
-
Labs:
Laboratory Results
05/27/24
04:19
WBC 12.2 H
Hgb 10.6 L
Hct 30.1 L
Plt Count 181
Sodium 131 L
Potassium 5.1
Chloride 93 L
Carbon Dioxide 28
BUN 20 H
Creatinine 0.6
Glucose 172 H
Calcium 9.0
Total Bilirubin 0.4
AST 30
ALT 14
Alkaline Phosphatase 78
Vital Signs:
Vital Signs
Temp Pulse Resp BP Pulse Ox
97.9 F 86 14 133/62 95
05/27/24 07:30 05/27/24 11:09 05/27/24 11:09 05/27/24 09:09 05/27/24 11:09
I&O
05/26/24 05/27/24 05/28/24
06:59 06:59 06:59
Intake Total 480 / 480
Output Total 1100 / 1100 825 / 825
Balance -620 / -620 -825 / -825
[2024-05-27] MEDS: NOVOLOG FLEXPEN-MODERATE RESISTANCE 7 UNITS SC (12:02)
[2024-05-27 12:08] LABS: Glucose - Point of Care 341 mg/dl (70-99)
--- NOTE | 2024-05-27 12:18 | W.PN.CARDCBS ---
Today's Communication / Plan
-
Will give an extra dose of IV Lasix 20 mg now.
Discussed with primary service
Impression / Plan
-
PCP: Nuzhat Gold
Brand Development Manager: Dr. Deana Funes
Impression:
Presented 05/13/2024 with JEAN BAPTISTE, weakness, dizziness
Hypercarbia
Hypotension
Troponin elevation likely nonischemic troponin elevation
Recent admission to 05/14-05/17/24 for afib with RVR, CHF, pulm fibrosis/ILD
History of multiple ischemic strokes which have been felt likely to represent small vessel disease and atherosclerosis.
Autonomic dysfunction/hypotension/orthostasis treated with midodrine as needed
Patient has not been compliant with abdominal binder, compressions for known orthostatic hypotension and has not taken midodrine consistently due to hypertension
Type 2 diabetes with diabetic neuropathy
History of seizure disorder
Breast Ca with Radiation Therapy s/p Left Mastectomy
GERD/Hiatal Hernia
Carotid stenosis, right s/p stent
Hypercholesterolemia
RLS
UTIs
Hysterectomy
History of bowel resection
Back surgery
Iron Deficiency
Congenital malformation of esophagus
Postmenopausal atrophic vaginitis
Gait difficulty
Dysphagia
Hyponatremia
Former smoker
DNR code status
Echocardiogram April 15, 2022 finds small left ventricle with moderate left ventricular hypertrophy and ejection fraction of 60 to 65%. There is mild aortic stenosis with peak and mean gradients of 28 and 15 mmHg and calculated aortic valve area of
1.5 cm�.
3 weeks of cardiac monitoring May 2021 failed to demonstrate atrial fibrillation
Echo 05/15/2024: EF 40 to 45%, global hypokinesis, stage II diastolic dysfunction, MAC, mild MR, mild to moderate with peak/mean gradients 27/18 mmHg, KAYLEIGH 1.4 cm�, trace AR
ECHO 05/25/24: EF 40 to 45%, apex, inferolateral, inferior and anterior perez are hypokinetic, appears stable compared to prior.
Plan:
-Presented with weakness and dizziness. remains with restless legs/LE
-Early in admission Lasix had been held due to hypotension after receiving 40mg IV in ER on arrival then given IVF bolus. Still appears somewhat volume overloaded. Weight is up compared to prior. She is on Lasix 20 mg daily and got an IV dose
yesterday. Will give another Lasix dose of Lasix IV 20 mg daily and follow.
-Lactic acid was elevated as was Pro-Malick. Workup ongoing per primary service.
-Initially she required pressors. Blood pressures appear improved on midodrine 2.5mg TID. Would go back to as needed. (was using prn prior to admission)
-EF 40-45%, stable. suspected tachy mediated CM however on review of last echocardiogram and current echocardiogram wall motion abnormalities are segmental. Ischemic assessment as an outpatient. GDMT currently limited by hypotension. holding OP
toprol, lisinopril, resume as able
-She is not a candidate for SGLT2 inhibitors given history of UTIs
-Peak trop 0.085 and downtrending. Severe coronary artery calcification noted by chest CT.
-She remains in SR upon review of tele overnight. continue amiodarone 200mg daily (dose decreased as OP 05/22 from BID).
-Continue eliquis, plavix (history of CVAs)
-PT/OT
Progress Note - Brand Development Manager
Subjective
Date of Service: May 27, 2024
She denies chest pain and palpitations. Breathing is somewhat improved compared to prior. She tells me she is constipated and restless legs continue to be bothersome.
Objective
Labs:
05/27/24 04:19
05/27/24 04:19
Labs
Hgb 10.6 g/dL (12.0-16.0) L 05/27/24 04:19
Hct 30.1 % (37.0-47.0) L 05/27/24 04:19
Plt Count 181 10^3/uL (130-400) 05/27/24 04:19
Sodium 131 mmol/L (135-145) L 05/27/24 04:19
Potassium 5.1 mmol/L (3.5-5.1) 05/27/24 04:19
BUN 20 mg/dl (7-17) H 05/27/24 04:19
Creatinine 0.6 mg/dL (0.6-1.0) 05/27/24 04:19
Glucose 172 mg/dl (70-99) H 05/27/24 04:19
Troponins
05/24/24 05/24/24
12:06 15:51
Troponin I 0.085 H* 0.065 H*
Vital Signs and I&O:
Vital Signs
Temp Pulse Resp BP Pulse Ox
97.9 F 86 14 133/62 95
05/27/24 07:30 05/27/24 11:09 05/27/24 11:09 05/27/24 09:09 05/27/24 11:09
Vital Signs
Temp Pulse Resp BP Pulse Ox
97.9 F 86 14 133/62 95
05/27/24 07:30 05/27/24 11:09 05/27/24 11:09 05/27/24 09:09 05/27/24 11:09
Intake & Output
05/25/24 05/26/24 05/27/24 05/28/24
06:59 06:59 06:59 06:59
Intake Total 600 / 600 480 / 480
Output Total 800 / 800 1100 / 1100 825 / 825
Balance -200 / -200 -620 / -620 -825 / -825
Physical Exam
Physical Exam
General: Well developed, well nourished in NAD.
Neck: Supple, JVD 8 cm with positive HJR.
Heart: Distant heart sounds, RRR, 3/6 basal systolic murmur, No S3, S4, no rubs.
Lungs: Bibasilar crackles
Extremities: No clubbing, cyanosis or edema bilaterally.
Neuro: Grossly nonfocal, awake, alert
[2024-05-27] MEDS: ProAmatine PO (12:23)
[2024-05-27] MEDS: LASIX 20 MG IV (13:00)
--- NOTE | 2024-05-27 13:40 | PTCARENOTE ---
Rec'd pt this AM, wide awake, oriented conversation. More lethargic, sleepy this afternoon. Dr. Story in to assess. Med asjustments made. Pt AAO x3 at lunch, ate 75% of his meal with feeding assist. down to 2 pt restraints. vital signs stable,
resting comfortabluy
--- NOTE | 2024-05-27 15:32 | PTCARENOTE ---
Rec'd pt this AM. Pt has multiple compaints but responds to support. Pt is 1 assist OOB to chair or BSC. unsteady on feet. requires frequent directions when getting OOB for steps to be able to move safely. vital signs stable. frequent large urine
output with lasix treatment. remains with only small BM yesterday, none today.
[2024-05-27] MEDS: ROCEPHIN 1000 MG IV (17:09)
[2024-05-27] MEDS: NOVOLOG FLEXPEN-MODERATE RESISTANCE 1 UNITS SC (17:09)
[2024-05-27] MEDS: STERILE WATER FOR INJECTION 10 ML IV (17:09)
[2024-05-27 17:15] LABS: Glucose - Point of Care 167 mg/dl (70-99)
[2024-05-27] MEDS: LIPITOR PO (17:19)
[2024-05-27] MEDS: MELATONIN 5 MG PO (20:14)
[2024-05-27] MEDS: XANAX 0.5 MG PO (20:14)
[2024-05-27 20:24] LABS: Lactic Acid 1.9 mmol/L (0.7-2.0)
[2024-05-27 21:11] LABS: Glucose - Point of Care 129 mg/dl (70-99)
[2024-05-28] VITALS (11 sets, daily range): BP systolic 91–162; BP diastolic 59–92; BMI 19.9
--- NOTE | 2024-05-28 05:15 | PTCARENOTE ---
Pt received at beginning of shift resting in bed. Family left for the night and pt removed hearing aides so very NOOKSACK. Requested all wires be removed and explained that the care ordered for her by her Dr requires the wires she is anxious about. Pt
kept asking 'but why, but why' over and over. Started to tear up. Explained to pt that she is ok and that the wires she has are the same wires she's had since she has been here. Pt was able to settle herself down. Rest of night uneventful. Using
call bartlett for assistance oob to bsc. Turns self. Assessment unchanged from previous. Call bartlett remains within reach. Will continue to monitor.
[2024-05-28 06:23] LABS: Hematocrit 32.7 % (37.0-47.0); Hemoglobin 11.5 g/dL (12.0-16.0); Mean Corp Hgb Conc. 35.2 g/dL (33.0-37.0); Mean Corpuscular Hgb 30.4 pg (27.0-31.0); Mean Corpuscular Volume 86.5 fL (81.0-99.0); Mean Platelet Volume 9.8 fL (7.4-10.4); Platelet Count 192 10^3/uL (130-400); Red Blood Cell Count 3.78 10^6/uL (4.20-5.40); Red Cell Dist. Width 14.8 % (11.5-14.5); White Blood Cell Count 9.5 10^3/uL (4.8-10.8)
[2024-05-28 06:37] LABS: Lactic Acid 1.6 mmol/L (0.7-2.0)
[2024-05-28 06:49] LABS: ALT (SGPT) 14 U/L (0-35); AST (SGOT) 29 U/L (14-36); Albumin 3.4 g/dl (3.5-5.0); Alkaline Phosphatase 75 U/L (38-126); Blood Urea Nitrogen 18 mg/dl (7-17); Calcium 9.1 mg/dl (8.4-10.2); Carbon Dioxide 33 mmol/L (22-30); Chloride 93 mmol/L (98-107); Estimated Creatinine Clearance 61 ml/min; Glucose 102 mg/dl (70-99); Magnesium 1.6 mg/dl (1.6-2.3); Phosphorus 3.2 mg/dl (2.5-4.5); Potassium 4.3 mmol/L (3.5-5.1); Sodium 134 mmol/L (135-145); Total Bilirubin 0.6 mg/dl (0.2-1.3); Total Protein 5.7 g/dl (6.3-8.2); eGFR > 60.00
[2024-05-28] MEDS: PACERONE 200 MG PO (07:52)
[2024-05-28] MEDS: VIBRAMYCIN 100 MG PO ×2 (07:52→19:41)
[2024-05-28] MEDS: OCUVITE SOFTGEL 1 CAP PO ×2 (07:52→19:41)
[2024-05-28] MEDS: COLACE 100 MG PO ×2 (07:52→19:49)
[2024-05-28] MEDS: MIRALAX 17 GRAMS PO (07:52)
[2024-05-28] MEDS: PROTONIX 20 MG PO (07:52)
[2024-05-28] MEDS: LASIX 20 MG PO (07:52)
[2024-05-28] MEDS: AMARYL 2 MG PO (07:53)
[2024-05-28] MEDS: ELIQUIS 2.5 MG PO ×2 (07:53→19:41)
[2024-05-28] MEDS: PLAVIX 75 MG PO (07:53)
[2024-05-28] MEDS: NOVOLOG FLEXPEN-MODERATE RESISTANCE SC ×3 (07:54→17:20)
[2024-05-28 07:56] LABS: Glucose - Point of Care 105 mg/dl (70-99)
[2024-05-28] MEDS: MAGNESIUM SULFATE 50 IV (09:04)
--- NOTE | 2024-05-28 09:47 | W.PN.HOSP.TC ---
Today's Communication/Plan
-
cont diuretics
cont Abx
Assessment / Plan
Assessment / Plan
88F HFmrEF, interstitial fibrosis, atrial fibrillation, aortic stenosis, asthma, hyponatremia, labile hypertension, DM, CVA, seizure disorder, breast cancer with left lumpectomy/radiation mastectomy, right carotid stenosis with stent, restless leg
syndrome, GERD/hiatal hernia, anxiety disorder, seizure disorder came with SOB, thought to be multifactorial 2/2 ILD, CHF exacerbation.
A/P:
#Acute hypoxemic hypercarbic respiratory failure 2/2 combination of acute on chronic HFmrEF exacerbation and COPD exacerbation on chronic ILD
#Unspecified organism pneumonia
Currently on Ceftriaxone/DOxy
COnt bronchodilators
Lasix, daily weight, follow electrolytes
Cardiology follows: diuresis
Pulm follows: stopped steroids
#Non-ischemic myocardial injury
as per cardiology. Outpatient ischemic eval advised
#Paroxysmal Afib
cont rate/rhythm control and Eliquis
#DM type 2 with neuropathy
Insulin SS, DM diet, Accuchecks
Metformin stopped 2/2 lactic acidosis
#Acute urinary retention
Passed TOV
#Lactic acidosis
on admission
resolved
#Dysphagia, unspecified
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
#Hx of CVA
#Seizure d/o
#GERD
#Anxiety d/o
Seiaure precautions
cont home meds
#Asymptomatic cholelithiasis
#Diverticulosis
#DJD
#Osteopenia
F/U as outpatient
High fiber diet
DVT ppx ELiquis
DNR/DNI
I have spent at least 39min reviewing chart, test results, communication with consultants and direct patient care
Anticipated Discharge: 24 - 48 hours
Subjective/Interval History
-
Date of Service: May 28, 2024
Objective Data
-
Labs:
Laboratory Results
05/28/24
06:09
WBC 9.5
Hgb 11.5 L
Hct 32.7 L
Plt Count 192
Sodium 134 L
Potassium 4.3
Chloride 93 L
Carbon Dioxide 33 H
BUN 18 H
Creatinine 0.6
Glucose 102 H
Calcium 9.1
Total Bilirubin 0.6
AST 29
ALT 14
Alkaline Phosphatase 75
Vital Signs:
Vital Signs
Temp Pulse Resp BP Pulse Ox
98.4 F 82 18 91/59 97
05/28/24 07:54 05/28/24 08:35 05/28/24 08:35 05/28/24 08:35 05/28/24 09:29
I&O
05/27/24 05/28/24 05/29/24
06:59 06:59 06:59
Intake Total 100 / 100 420 / 420
Output Total 825 / 825 2575 / 2575 350 / 350
Balance -825 / -825 -2475 / -2475 70 / 70
Review of Systems
-
History Source: Patient
All other systems: Reviewed and negative
Physical Exam
-
General: No Apparent Distress
HEENT: Normocephalic
Respiratory: Clear to Auscultation
Cardiac: Regular Rhythm
GI: Soft, Nontender and Nondistended
Musculoskeletal: No Clubbing, No Cyanosis and No Edema
Neuro: Awake, Alert, Oriented and AO x 3
Psych: Calm
--- NOTE | 2024-05-28 10:52 | W.PN.CARDCBS ---
Today's Communication / Plan
-
Intermittent abdominal discomfort. Given history check EKG.
Eventual ischemic assessment as an outpatient given ejection fraction 40 to 45% and segmental wall motion abnormality.
Of note EKG has changed during hospital stay with T wave inversions. Going to recheck. At the time of change of EKG patient was asymptomatic, echo was abnormal but without change and troponin was 0.085.
Volume status stable continue oral Lasix.
Impression / Plan
-
PCP: Nuzhat Gold
Wood Cabinetmaker: Dr. Deana Funes
Impression:
Presented 05/13/2024 with JEAN BAPTISTE, weakness, dizziness, respiratory failure, hypotension/sepsis
Hypercarbia
Hypotension
Troponin elevation likely nonischemic troponin elevation
Recent admission to 05/14-05/17/24 for afib with RVR, CHF, pulm fibrosis/ILD
History of multiple ischemic strokes which have been felt likely to represent small vessel disease and atherosclerosis.
Autonomic dysfunction/hypotension/orthostasis treated with midodrine as needed
Patient has not been compliant with abdominal binder, compressions for known orthostatic hypotension and has not taken midodrine consistently due to hypertension
Type 2 diabetes with diabetic neuropathy
History of seizure disorder
Breast Ca with Radiation Therapy s/p Left Mastectomy
GERD/Hiatal Hernia
Carotid stenosis, right s/p stent
Hypercholesterolemia
RLS
UTIs
Hysterectomy
History of bowel resection
Back surgery
Iron Deficiency
Congenital malformation of esophagus
Postmenopausal atrophic vaginitis
Gait difficulty
Dysphagia
Hyponatremia
Former smoker
DNR code status
Echocardiogram April 15, 2022 finds small left ventricle with moderate left ventricular hypertrophy and ejection fraction of 60 to 65%. There is mild aortic stenosis with peak and mean gradients of 28 and 15 mmHg and calculated aortic valve area of
1.5 cm�.
3 weeks of cardiac monitoring May 2021 failed to demonstrate atrial fibrillation
Echo 05/15/2024: EF 40 to 45%, global hypokinesis, stage II diastolic dysfunction, MAC, mild MR, mild to moderate with peak/mean gradients 27/18 mmHg, KAYLEIGH 1.4 cm�, trace AR
ECHO 05/25/24: EF 40 to 45%, apex, inferolateral, inferior and anterior perez are hypokinetic, appears stable compared to prior.
Plan:
-Presented with weakness, hypotension/sepsis, respiratory failure and dizziness.
-She has heart failure with preserved ejection fraction. She diuresed very well over the past 2 days with 20 mg of IV Lasix. Respiratory status improved and stable. Would continue oral Lasix 20 mg daily.
-She is not a candidate for SGLT2 inhibitors given history of UTIs
-Initially she required pressors. Blood pressures appear improved. Have changed midodrine to as needed (was using prn prior to admission).
-Lactic acid was elevated as was Pro-Malick on admission. She continues on antibiotics. Intermittently she has complained of upper abdominal discomfort. She mentions this today with very minimal tenderness. She did have constipation which has
improved. Defer to primary service.
-No clear chest discomfort. Will reassess EKG now given abdominal symptoms. Previously during admission EKG more abnormal with T wave inversions and troponin peak 0.085.
-Severe coronary artery calcification noted by chest CT.
-EF 40-45%, stable. Previously suspected tachy mediated CM however on review of last echocardiogram and current echocardiogram wall motion abnormalities are segmental. Ischemic assessment as an outpatient. -GDMT currently limited by hypotension.
holding OP toprol, lisinopril, resume as able
-She has history of paroxysmal atrial fibrillation. She remains in SR upon review of tele . Continue amiodarone 200mg daily (dose decreased as OP 05/22 from BID).
-Continue eliquis, plavix (history of CVAs)
-PT/OT
Discussed with nursing.
Progress Note - Wood Cabinetmaker
Subjective
Date of Service: May 28, 2024
She has some mild upper abdominal discomfort. Breathing is stable. No chest pain.
Objective
Labs:
05/28/24 06:09
05/28/24 06:09
Labs
Hgb 11.5 g/dL (12.0-16.0) L 05/28/24 06:09
Hct 32.7 % (37.0-47.0) L 05/28/24 06:09
Plt Count 192 10^3/uL (130-400) 05/28/24 06:09
Sodium 134 mmol/L (135-145) L 05/28/24 06:09
Potassium 4.3 mmol/L (3.5-5.1) 05/28/24 06:09
BUN 18 mg/dl (7-17) H 05/28/24 06:09
Creatinine 0.6 mg/dL (0.6-1.0) 05/28/24 06:09
Glucose 102 mg/dl (70-99) H 05/28/24 06:09
Vital Signs and I&O:
Vital Signs
Temp Pulse Resp BP Pulse Ox
98.4 F 82 18 91/59 97
05/28/24 07:54 05/28/24 08:35 05/28/24 08:35 05/28/24 08:35 05/28/24 09:29
Vital Signs
Temp Pulse Resp BP Pulse Ox
98.4 F 82 18 91/59 97
05/28/24 07:54 05/28/24 08:35 05/28/24 08:35 05/28/24 08:35 05/28/24 09:29
Intake & Output
05/26/24 05/27/24 05/28/24 05/29/24
06:59 06:59 06:59 06:59
Intake Total 480 / 480 100 / 100 420 / 420
Output Total 1100 / 1100 825 / 825 2575 / 2575 350 / 350
Balance -620 / -620 -825 / -825 -2475 / -2475 70 / 70
Physical Exam
Physical Exam
General: Frail elderly woman in NAD.
Heart: Non displaced PMI, RRR, no murmurs, No S3, S4, no rubs.
Lungs: Decreased breath sounds at the bases
Abdomen: Soft minimal right upper quadrant midepigastrium tenderness
Extremities: No clubbing, cyanosis or edema bilaterally.
Neuro: Grossly nonfocal, awake, alert .
[2024-05-28 12:28] LABS: Glucose - Point of Care 146 mg/dl (70-99)
--- NOTE | 2024-05-28 13:39 | PTOTSP ---
ST Dysphagia Evaluation
Known pharyngeal dysphagia s/p VFSS 05/24
Pt received awake/alert with daughter present at the bedside. Daughter reports c/f dehydration as pt is not willing to drink thickened liquids. Education re: rationale (i.e., results of VFSS) for diet modification during previous admission HOB
raised upright for PO trials of thin liquids by straw sip. Swallow appears min delayed vocal quality was assessed after each trial and remained grossly clear. Further education provided re: risks of drinking thin liquids i/s/o known aspiration
however pt/daughter agreeable to thin liquids between meals as per AR[facility]. She is currently on room air and breathing comfortably.
Recommend
1. Continue Regular solids/mildly-thick liquids
2. Allow thin liquids and ice chips between meals as per ARHP - if coughing, respiratory compromise/distress or c/f aspiration d/c ARHP and notify GAMING CAGE WORKER
3. Small bites, small/single sips and slow rate
4. Meds oral advise crushed into apple sauce
5. GAMING CAGE WORKER following; monitor diet tolerance, assess candidacy for repeat VFSS in upcoming sessions
D/w RN and physician re: above
[2024-05-28 16:59] LABS: Glucose - Point of Care 131 mg/dl (70-99)
[2024-05-28] MEDS: ROCEPHIN 1000 MG IV (17:17)
[2024-05-28] MEDS: LIPITOR 40 MG PO (17:17)
[2024-05-28] MEDS: STERILE WATER FOR INJECTION 10 ML IV (17:17)
[2024-05-28] MEDS: MELATONIN 5 MG PO (19:41)
[2024-05-28] MEDS: XANAX 0.5 MG PO (19:41)
[2024-05-28] MEDS: TYLENOL 650 MG PO (19:51)
--- NOTE | 2024-05-28 19:55 | PTCARENOTE ---
Received pt from laura BROWNING. Pt is AAOx3, MECHOOPDA, forgetful @ times, anxious (PRN Xanax given, see MAR). NSR w/ 1st degree and PVCs on the monitor. On RA O2 sat 96%, 1L NC placed HS, lungs diminished. BSCx1. Pt c/o abd pressure/discomfort, PRN Tylenol
given (see MAR). Pt is laying in bed with call bartlett in reach.
[2024-05-28 21:28] LABS: Glucose - Point of Care 166 mg/dl (70-99)
[2024-05-29] VITALS (14 sets, daily range): BP systolic 101–167; BP diastolic 62–92; PULSE 84; O2SAT 93; BMI 19.5
[2024-05-29 05:34] LABS: % Basophils 0.3 % (0-2); % Eosinophils 1.4 % (0-6); % Immature Granulocytes 0.4 % (0-0.5); % Lymphocytes 13.6 % (20.5-51.1); % Monocytes 8.7 % (1.7-9.3); % Neutrophils 75.6 % (42.2-75.2); Absolute Eosinophils 0.1 10^3/uL (0-0.7); Absolute Lymphocytes 1.1 10^3/uL (1.2-3.4); Absolute Monocytes 0.7 10^3/uL (0.1-0.6); Absolute Neutrophils 5.9 10^3/uL (1.4-6.5); Hematocrit 35.9 % (37.0-47.0); Hemoglobin 12.3 g/dL (12.0-16.0); Mean Corp Hgb Conc. 34.3 g/dL (33.0-37.0); Mean Corpuscular Hgb 29.6 pg (27.0-31.0); Mean Corpuscular Volume 86.3 fL (81.0-99.0); Mean Platelet Volume 10.1 fL (7.4-10.4); Nucleated Red Blood Cells % 0 %; Platelet Count 226 10^3/uL (130-400); Red Blood Cell Count 4.16 10^6/uL (4.20-5.40); Red Cell Dist. Width 14.6 % (11.5-14.5); White Blood Cell Count 7.8 10^3/uL (4.8-10.8)
[2024-05-29 06:03] LABS: ALT (SGPT) 14 U/L (0-35); AST (SGOT) 30 U/L (14-36); Albumin 3.5 g/dl (3.5-5.0); Alkaline Phosphatase 86 U/L (38-126); Blood Urea Nitrogen 17 mg/dl (7-17); Calcium 9.5 mg/dl (8.4-10.2); Carbon Dioxide 28 mmol/L (22-30); Chloride 93 mmol/L (98-107); Estimated Creatinine Clearance 59 ml/min; Glucose 134 mg/dl (70-99); Magnesium 1.6 mg/dl (1.6-2.3); Phosphorus 4.2 mg/dl (2.5-4.5); Potassium 3.9 mmol/L (3.5-5.1); Sodium 133 mmol/L (135-145); Total Bilirubin 0.5 mg/dl (0.2-1.3); eGFR > 60.00
[2024-05-29] MEDS: MIRALAX 17 GRAMS PO (07:56)
[2024-05-29] MEDS: MAGNESIUM SULFATE 50 IV (07:56)
[2024-05-29] MEDS: PLAVIX 75 MG PO (07:57)
[2024-05-29] MEDS: COLACE 100 MG PO ×2 (07:57→20:07)
[2024-05-29] MEDS: AMARYL 2 MG PO (07:57)
[2024-05-29] MEDS: ELIQUIS 2.5 MG PO ×2 (07:57→20:08)
[2024-05-29] MEDS: PACERONE 200 MG PO (07:57)
[2024-05-29] MEDS: NOVOLOG FLEXPEN-MODERATE RESISTANCE 1 UNITS SC ×2 (07:58→12:10)
[2024-05-29] MEDS: OCUVITE SOFTGEL 1 CAP PO ×2 (07:58→20:08)
[2024-05-29] MEDS: PROTONIX 20 MG PO (07:58)
[2024-05-29] MEDS: VIBRAMYCIN 100 MG PO ×2 (07:58→20:08)
[2024-05-29] MEDS: LASIX 20 MG PO (07:58)
[2024-05-29 08:01] LABS: Glucose - Point of Care 151 mg/dl (70-99)
--- NOTE | 2024-05-29 09:29 | PTCARENOTE ---
Pt AAOx3 anxious at times . Mag lorenzo running as ordered. Pt OOB to use BSC then to chair very unsteady on her feet. Pills in applesauce
--- NOTE | 2024-05-29 11:57 | W.PN.HOSP.TC ---
Today's Communication/Plan
-
PT/OT and CM for rehab
Assessment / Plan
Assessment / Plan
88F HFmrEF, interstitial fibrosis, atrial fibrillation, aortic stenosis, asthma, hyponatremia, labile hypertension, DM, CVA, seizure disorder, breast cancer with left lumpectomy/radiation mastectomy, right carotid stenosis with stent, restless leg
syndrome, GERD/hiatal hernia, anxiety disorder, seizure disorder came with SOB, thought to be multifactorial 2/2 ILD, CHF exacerbation. Medically stable for rehab - CM to work on it
A/P:
#Acute hypoxemic hypercarbic respiratory failure 2/2 combination of acute on chronic HFmrEF exacerbation and COPD exacerbation on chronic ILD
#Unspecified organism pneumonia
Currently on Ceftriaxone/DOxy
COnt bronchodilators
Lasix, daily weight, follow electrolytes
Cardiology follows: diuresis, outpatient follow up
Pulm follows: stopped steroids, outpatient follow up for PFT, especially with amio load
#Non-ischemic myocardial injury
as per cardiology. Outpatient ischemic eval advised
#Paroxysmal Afib
cont rate/rhythm control and Eliquis
#DM type 2 with neuropathy
Insulin SS, DM diet, Accuchecks
Metformin stopped 2/2 lactic acidosis
#Acute urinary retention
Passed TOV
#Lactic acidosis
on admission
resolved
#Dysphagia, unspecified
CYBER INCIDENT HANDLER, dysphagia diet
#Hx of CVA
#Seizure d/o
#GERD
#Anxiety d/o
Seiaure precautions
cont home meds
#Asymptomatic cholelithiasis
#Diverticulosis
#DJD
#Osteopenia
F/U as outpatient
High fiber diet
DVT ppx ELiquis
DNR/DNI
I have spent at least 39min reviewing chart, test results, communication with consultants and direct patient care
Anticipated Discharge: Within 24 hours
Subjective/Interval History
-
Date of Service: May 29, 2024
Objective Data
-
Labs:
Laboratory Results
05/29/24
04:51
WBC 7.8
Hgb 12.3
Hct 35.9 L
Plt Count 226
Sodium 133 L
Potassium 3.9
Chloride 93 L
Carbon Dioxide 28
BUN 17
Creatinine 0.5 L
Glucose 134 H
Calcium 9.5
Total Bilirubin 0.5
AST 30
ALT 14
Alkaline Phosphatase 86
Vital Signs:
Vital Signs
Temp Pulse Resp BP Pulse Ox
98.4 F 76 16 129/62 91
05/29/24 07:18 05/29/24 08:00 05/29/24 08:00 05/29/24 08:00 05/29/24 08:00
I&O
05/28/24 05/29/24 05/30/24
06:59 06:59 06:59
Intake Total 100 / 100 1010 / 1010
Output Total 2575 / 2575 1850 / 1850
Balance -2475 / -2475 -840 / -840
Review of Systems
-
History Source: Patient
All other systems: Reviewed and negative
Physical Exam
-
General: No Apparent Distress
HEENT: Normocephalic
Respiratory: Clear to Auscultation
GI: Soft, Nontender and Nondistended
Neuro: Awake, Alert, Oriented and AO x 3
Psych: Calm
[2024-05-29 12:17] LABS: Glucose - Point of Care 178 mg/dl (70-99)
--- NOTE | 2024-05-29 15:20 | W.PN.CARDCBS ---
Today's Communication / Plan
-
Continue current cardiac meds
Impression / Plan
-
PCP: Nuzhat Gold
Safety Clothing And Equipment Developer: Dr. Deana Funes
Impression:
Presented 05/13/2024 with JEAN BAPTISTE, weakness, dizziness, respiratory failure, hypotension/sepsis
Hypercarbia
Hypotension
Troponin elevation likely nonischemic troponin elevation
Recent admission to 05/14-05/17/24 for afib with RVR, CHF, pulm fibrosis/ILD
History of multiple ischemic strokes which have been felt likely to represent small vessel disease and atherosclerosis.
Autonomic dysfunction/hypotension/orthostasis treated with midodrine as needed
Patient has not been compliant with abdominal binder, compressions for known orthostatic hypotension and has not taken midodrine consistently due to hypertension
Type 2 diabetes with diabetic neuropathy
History of seizure disorder
Breast Ca with Radiation Therapy s/p Left Mastectomy
GERD/Hiatal Hernia
Carotid stenosis, right s/p stent
Hypercholesterolemia
RLS
UTIs
Hysterectomy
History of bowel resection
Back surgery
Iron Deficiency
Congenital malformation of esophagus
Postmenopausal atrophic vaginitis
Gait difficulty
Dysphagia
Hyponatremia
Former smoker
DNR code status
Echocardiogram April 15, 2022 finds small left ventricle with moderate left ventricular hypertrophy and ejection fraction of 60 to 65%. There is mild aortic stenosis with peak and mean gradients of 28 and 15 mmHg and calculated aortic valve area of
1.5 cm�.
3 weeks of cardiac monitoring May 2021 failed to demonstrate atrial fibrillation
Echo 05/15/2024: EF 40 to 45%, global hypokinesis, stage II diastolic dysfunction, MAC, mild MR, mild to moderate with peak/mean gradients 27/18 mmHg, KAYLEIGH 1.4 cm�, trace AR
ECHO 05/25/24: EF 40 to 45%, apex, inferolateral, inferior and anterior perez are hypokinetic, appears stable compared to prior.
Plan:
-Presented with weakness, hypotension/sepsis, respiratory failure and dizziness.
-She has heart failure with preserved ejection fraction. She diuresed very well over the past 2 days with 20 mg of IV Lasix. Respiratory status improved and stable. Would continue oral Lasix 20 mg daily.
-She is not a candidate for SGLT2 inhibitors given history of UTIs
-Initially she required pressors. Blood pressures appear improved. Midodrine changed to as needed (was using prn prior to admission).
-Lactic acid was elevated as was Pro-Malick on admission. She continues on antibiotics. Intermittently she has complained of upper abdominal discomfort. She mentions this today with very minimal tenderness. She did have constipation which has
improved. Defer to primary service.
-No clear chest discomfort. Previously during admission EKG more abnormal with T wave inversions and troponin peak 0.085.
-Severe coronary artery calcification noted by chest CT.
-EF 40-45%, stable. Previously suspected tachy mediated CM however on review of last echocardiogram and current echocardiogram wall motion abnormalities are segmental. Ischemic assessment as an outpatient.
-GDMT currently limited by hypotension. holding OP toprol, lisinopril, resume as able
-She has history of paroxysmal atrial fibrillation. She remains in SR upon review of tele. Continue amiodarone 200mg daily (dose decreased as OP 05/22 from BID).
-Continue eliquis, plavix (history of CVAs)
-PT/OT
Discussed with nursing and son at bedside.
Progress Note - Safety Clothing And Equipment Developer
Subjective
Date of Service: May 29, 2024
No acute overnight events. She remains in the IMU where she is resting comfortably. Remains weak and fatigued. No chest pain or pressure.
Objective
Labs:
05/29/24 04:51
05/29/24 04:51
Labs
Hgb 12.3 g/dL (12.0-16.0) 05/29/24 04:51
Hct 35.9 % (37.0-47.0) L 05/29/24 04:51
Plt Count 226 10^3/uL (130-400) 05/29/24 04:51
Sodium 133 mmol/L (135-145) L 05/29/24 04:51
Potassium 3.9 mmol/L (3.5-5.1) 05/29/24 04:51
BUN 17 mg/dl (7-17) 05/29/24 04:51
Creatinine 0.5 mg/dL (0.6-1.0) L 05/29/24 04:51
Glucose 134 mg/dl (70-99) H 05/29/24 04:51
Vital Signs and I&O:
Vital Signs
Temp Pulse Resp BP Pulse Ox
98.2 F 84 17 101/67 92
05/29/24 11:38 05/29/24 14:11 05/29/24 14:11 05/29/24 14:11 05/29/24 14:11
Vital Signs
Temp Pulse Resp BP Pulse Ox
98.2 F 84 17 101/67 92
05/29/24 11:38 05/29/24 14:11 05/29/24 14:11 05/29/24 14:11 05/29/24 14:11
Intake & Output
05/27/24 05/28/24 05/29/24 05/30/24
06:59 06:59 06:59 06:59
Intake Total 100 / 100 1010 / 1010 470 / 470
Output Total 825 / 825 2575 / 2575 1850 / 1850 400 / 400
Balance -825 / -825 -2475 / -2475 -840 / -840 70 / 70
Physical Exam
Physical Exam
Gen: NAD, AA
HEENT: NC/AT, sclera anicteric
Neck: No JVD
CV: RRR, NL s1/s2, no M/R/G
Lungs: CTAB
Abd: S/ND
Ext: No LE edema
Skin: Warm, dry
Neuro: Non-focal
--- NOTE | 2024-05-29 15:28 | PTCARENOTE ---
Attempt to call report nurse unavailable WCB, Daughter at bedside wants to speak with MD re prognosis and further plans. Dr Cochran TT
--- NOTE | 2024-05-29 16:21 | PTCARENOTE ---
Report to 4th floor Pt moved via WC daughter here whebn moving
[2024-05-29] MEDS: ROCEPHIN 1000 MG IV (16:40)
[2024-05-29] MEDS: STERILE WATER FOR INJECTION 10 ML IV (16:40)
[2024-05-29] MEDS: FLUSH (NSS) 1 FLUSH IV (16:40)
[2024-05-29] MEDS: NOVOLOG FLEXPEN-MODERATE RESISTANCE SC (16:50)
[2024-05-29 16:52] LABS: Glucose - Point of Care 138 mg/dl (70-99)
--- NOTE | 2024-05-29 17:08 | PTCARENOTE ---
Received patient from IMU via . Pt MARIMAR3. SAL. BALDO on partner marketing manager. Call bartlett within reach. Plan of care ongoing.
[2024-05-29] MEDS: LIPITOR 40 MG PO (17:18)
[2024-05-29] MEDS: MELATONIN 5 MG PO (20:13)
[2024-05-29] MEDS: XANAX 0.5 MG PO (20:13)
[2024-05-29 21:24] LABS: Glucose - Point of Care 223 mg/dl (70-99)
[2024-05-30 03:13] VITALS: BP 134/78
[2024-05-30 07:15] VITALS: BP 116/56
[2024-05-30 07:57] LABS: Glucose - Point of Care 146 mg/dl (70-99)
[2024-05-30 08:52] LABS: % Basophils 0.1 % (0-2); % Eosinophils 1.6 % (0-6); % Immature Granulocytes 0.7 % (0-0.5); % Lymphocytes 15.9 % (20.5-51.1); % Monocytes 12.1 % (1.7-9.3); % Neutrophils 69.6 % (42.2-75.2); Absolute Eosinophils 0.1 10^3/uL (0-0.7); Absolute Immature Granulocytes 0.1 10^3/uL (0-0.05); Absolute Lymphocytes 1.1 10^3/uL (1.2-3.4); Absolute Monocytes 0.8 10^3/uL (0.1-0.6); Absolute Neutrophils 4.6 10^3/uL (1.4-6.5); Hematocrit 35.6 % (37.0-47.0); Hemoglobin 12.4 g/dL (12.0-16.0); Mean Corp Hgb Conc. 34.8 g/dL (33.0-37.0); Mean Corpuscular Hgb 30.7 pg (27.0-31.0); Mean Corpuscular Volume 88.1 fL (81.0-99.0); Nucleated Red Blood Cells % 0 %; Platelet Count 219 10^3/uL (130-400); Red Blood Cell Count 4.04 10^6/uL (4.20-5.40); Red Cell Dist. Width 14.5 % (11.5-14.5); White Blood Cell Count 6.7 10^3/uL (4.8-10.8)
[2024-05-30 09:11] LABS: ALT (SGPT) 13 U/L (0-35); AST (SGOT) 27 U/L (14-36); Albumin 3.2 g/dl (3.5-5.0); Alkaline Phosphatase 79 U/L (38-126); Blood Urea Nitrogen 19 mg/dl (7-17); Calcium 8.9 mg/dl (8.4-10.2); Carbon Dioxide 27 mmol/L (22-30); Chloride 93 mmol/L (98-107); Estimated Creatinine Clearance 59 ml/min; Glucose 157 mg/dl (70-99); Magnesium 1.7 mg/dl (1.6-2.3); Phosphorus 3.8 mg/dl (2.5-4.5); Potassium 3.8 mmol/L (3.5-5.1); Sodium 131 mmol/L (135-145); Total Bilirubin 0.5 mg/dl (0.2-1.3); Total Protein 5.6 g/dl (6.3-8.2); eGFR > 60.00
[2024-05-30] MEDS: NOVOLOG FLEXPEN-MODERATE RESISTANCE SC ×2 (09:12→17:21)
[2024-05-30] MEDS: OCUVITE SOFTGEL 1 CAP PO ×2 (09:15→19:49)
[2024-05-30] MEDS: MIRALAX 17 GRAMS PO (09:15)
[2024-05-30] MEDS: PROTONIX 20 MG PO (09:15)
[2024-05-30] MEDS: PLAVIX 75 MG PO (09:16)
[2024-05-30] MEDS: VIBRAMYCIN 100 MG PO ×2 (09:16→19:49)
[2024-05-30] MEDS: LASIX 20 MG PO (09:16)
[2024-05-30] MEDS: ELIQUIS 2.5 MG PO ×2 (09:16→19:49)
[2024-05-30] MEDS: AMARYL 2 MG PO (09:16)
[2024-05-30] MEDS: PACERONE 200 MG PO (09:16)
[2024-05-30] MEDS: COLACE 100 MG PO ×2 (09:16→19:46)
[2024-05-30 10:00] VITALS: BMI 19.5
[2024-05-30 11:05] VITALS: BP 151/89
--- NOTE | 2024-05-30 11:48 | W.PN.HOSP.TC ---
Today's Communication/Plan
-
d/c
Assessment / Plan
Assessment / Plan
88F HFmrEF, interstitial fibrosis, atrial fibrillation, aortic stenosis, asthma, hyponatremia, labile hypertension, DM, CVA, seizure disorder, breast cancer with left lumpectomy/radiation mastectomy, right carotid stenosis with stent, restless leg
syndrome, GERD/hiatal hernia, anxiety disorder, seizure disorder came with SOB, thought to be multifactorial 2/2 ILD, CHF exacerbation. Medically stable for rehab - CM to work on it. As per VSE: continuation of regular, mildly thick liquids, and
aspiration risk hydration protocol to allow water (without thickener) between meals after oral care. Meds crushed in puree. Reflux precautions. Outpatient referrals to cardiology and pulm provided.
A/P:
#Acute hypoxemic hypercarbic respiratory failure 2/2 combination of acute on chronic HFmrEF exacerbation and COPD exacerbation on chronic ILD
#Unspecified organism pneumonia
Currently on Ceftriaxone/DOxy
COnt bronchodilators
Lasix, daily weight, follow electrolytes
Cardiology follows: diuresis, outpatient follow up
Pulm follows: stopped steroids, outpatient follow up for PFT, especially with amio load
#Non-ischemic myocardial injury
as per cardiology. Outpatient ischemic eval advised
#Paroxysmal Afib
cont rate/rhythm control and Eliquis
#DM type 2 with neuropathy
Insulin SS, DM diet, Accuchecks
Metformin stopped 2/2 lactic acidosis
#Acute urinary retention
Passed TOV
#Lactic acidosis
on admission
resolved
#Dysphagia, unspecified
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
#Hx of CVA
#Seizure d/o
#GERD
#Anxiety d/o
Seizure precautions
cont home meds
#Asymptomatic cholelithiasis
#Diverticulosis
#DJD
#Osteopenia
F/U as outpatient
High fiber diet
DVT ppx ELiquis
DNR/DNI
I have spent at least 39min reviewing chart, test results, communication with consultants and direct patient care
Anticipated Discharge: Today
Subjective/Interval History
-
Date of Service: May 30, 2024
Objective Data
-
Labs:
Laboratory Results
05/30/24
07:52
WBC 6.7
Hgb 12.4
Hct 35.6 L
Plt Count 219
Sodium 131 L
Potassium 3.8
Chloride 93 L
Carbon Dioxide 27
BUN 19 H
Creatinine 0.6
Glucose 157 H
Calcium 8.9
Total Bilirubin 0.5
AST 27
ALT 13
Alkaline Phosphatase 79
Vital Signs:
Vital Signs
Temp Pulse Resp BP Pulse Ox
97.7 F 75 18 116/56 93
05/30/24 07:15 05/30/24 07:15 05/30/24 07:15 05/30/24 07:15 05/30/24 07:15
I&O
05/29/24 05/30/24 05/31/24
06:59 06:59 06:59
Intake Total 1010 / 1010 950 / 950
Output Total 1850 / 1850 400 / 400
Balance -840 / -840 550 / 550
Review of Systems
-
History Source: Patient
All other systems: Reviewed and negative
Physical Exam
-
General: No Apparent Distress
HEENT: Moist Mucous Membranes
Respiratory: Clear to Auscultation
Cardiac: Regular Rhythm
Neuro: Awake, Alert, Oriented and AO x 3
--- NOTE | 2024-05-30 11:49 | W.PN.CARDCBS ---
Addendum entered and electronically signed by Fe Colón MD 05/30/24 13:58:
I saw and examined the patient.
The Voice Writing Reporter's note was reviewed and I agree with the note.
Comment: Stable look stronger today. Volume status stable. Continue Lasix 20 mg daily. Agree with resuming beta-marcia and eventually resuming DAVID inhibitor. No cardiac chest pain. She will need ischemic assessment as an outpatient.
[facility]. Outpatient cardiology follow-up scheduled. We will sign off. Please reconsult us if new issues develop.
Original Note:
Today's Communication / Plan
-
Swallowing study pending
Resume Toprol 12.5 mg
Lisinopril 2.5 mg can be added as outpt
Consider outpt ischemic evaluation
Anticipate discharge to short-term rehab with outpt cardiology follow arranged
Impression / Plan
-
PCP: Nuzhat Gold
Blanking Machine Operator: Dr. Deana Funes
Impression:
Presented 05/23/2024 with JEAN BAPTISTE, weakness, dizziness, respiratory failure, hypotension/sepsis
Hypercarbia
Hypotension
Troponin elevation likely nonischemic troponin elevation, peak 0.085
Recent admission to 05/14-05/17/24 for afib with RVR, CHF, pulm fibrosis/ILD
History of multiple ischemic strokes which have been felt likely to represent small vessel disease and atherosclerosis.
Autonomic dysfunction/hypotension/orthostasis treated with midodrine as needed
Patient has not been compliant with abdominal binder, compressions for known orthostatic hypotension and has not taken midodrine consistently due to hypertension
Type 2 diabetes with diabetic neuropathy
History of seizure disorder
Breast Ca with Radiation Therapy s/p Left Mastectomy
GERD/Hiatal Hernia
Carotid stenosis, right s/p stent
Hypercholesterolemia
RLS
UTIs
Hysterectomy
History of bowel resection
Back surgery
Iron Deficiency
Congenital malformation of esophagus
Postmenopausal atrophic vaginitis
Gait difficulty
Dysphagia
Hyponatremia
Former smoker
DNR code status
Echocardiogram April 15, 2022 finds small left ventricle with moderate left ventricular hypertrophy and ejection fraction of 60 to 65%. There is mild aortic stenosis with peak and mean gradients of 28 and 15 mmHg and calculated aortic valve area of
1.5 cm�.
3 weeks of cardiac monitoring May 2021 failed to demonstrate atrial fibrillation
Echo 05/15/2024: EF 40 to 45%, global hypokinesis, stage II diastolic dysfunction, MAC, mild MR, mild to moderate with peak/mean gradients 27/18 mmHg, KAYLEIGH 1.4 cm�, trace AR
ECHO 05/25/24: EF 40 to 45%, apex, inferolateral, inferior and anterior perez are hypokinetic, appears stable compared to prior.
Plan:
-Presented 05/23/2024 with weakness, hypotension/sepsis, respiratory failure and dizziness.
-She has heart failure with preserved ejection fraction. ProBNP 6840
-She diuresed very well with 20 mg of IV Lasix. Weight down at least 4 lbs, pending weight today.
-Respiratory status improved and stable.
-Continue oral Lasix 20 mg daily.
-Consider adding back low dose Toprol 12.5 mg and eventually Lisinopril if BP allows
-She is not a candidate for SGLT2 inhibitors given history of UTIs
-Initially she required pressors. Blood pressures appear improved. Midodrine changed to as needed (was using prn prior to admission).
-Lactic acid was elevated as was Pro-Malick on admission.
-She continues on antibiotics.
-Swallowing study pending
-No clear chest discomfort. Previously during admission EKG more abnormal with T wave inversions and troponin peak 0.085.
-Severe coronary artery calcification noted by chest CT.
-EF 40-45%, stable. Previously suspected tachy mediated CM however on review of last echocardiogram and current echocardiogram wall motion abnormalities are segmental. Ischemic assessment as an outpatient.
-GDMT currently limited by hypotension. Would resume Toprol and eventually add back lisinopril, resume as able
-She has history of paroxysmal atrial fibrillation. She remains in SR upon review of tele. Continue amiodarone 200mg daily (dose decreased as OP 05/22 from BID).
-Continue Eliquis, Plavix (history of CVAs)
-PT/OT
Discussed with nursing and son at bedside.
History of Present Illness 05/24/2024:
Patient is an 89-year-old woman living at [facility] with recent admission 05/14-05/17/24 for afib with RVR, acute CHF, and pulm fibrosis. Cardiology recommendation was for po lasix 40mg daily upon DC however she was not discharged on lasix.
She was seen in cardiology office for follow up 05/22 and she had complained of nausea, weakness, SOB, and was mildly hypotensive. Due to symptoms, amiodarone was decreased to 200mg daily from BID and lasix 20mg daily was started. She reports she has
had worsening weakness and SOB with exertion. Hypotensive on arrival to ER and has remained hypotensive. in sinus rhythm. proBNP 6800, up from 4400 last admission. Denies LE edema, weight gain, fevers, chills. Cardiology consulted for evaluation.
She has history of orthostasis and previously had not been compliant with abd binder or compression stockings. She was not on supp O2 on DC last admission.
Progress Note - Blanking Machine Operator
Subjective
Date of Service: May 30, 2024
Patient seen and examined. Patient resting comfortably in bed on room air. Notes improved shortness of breath
Objective
Labs:
05/30/24 07:52
05/30/24 07:52
Labs
Hgb 12.4 g/dL (12.0-16.0) 05/30/24 07:52
Hct 35.6 % (37.0-47.0) L 05/30/24 07:52
Plt Count 219 10^3/uL (130-400) 05/30/24 07:52
Sodium 131 mmol/L (135-145) L 05/30/24 07:52
Potassium 3.8 mmol/L (3.5-5.1) 05/30/24 07:52
BUN 19 mg/dl (7-17) H 05/30/24 07:52
Creatinine 0.6 mg/dL (0.6-1.0) 05/30/24 07:52
Glucose 157 mg/dl (70-99) H 05/30/24 07:52
Vital Signs and I&O:
Vital Signs
Temp Pulse Resp BP Pulse Ox
97.7 F 75 18 116/56 93
05/30/24 07:15 05/30/24 07:15 05/30/24 07:15 05/30/24 07:15 05/30/24 07:15
Vital Signs
Temp Pulse Resp BP Pulse Ox
97.7 F 75 18 116/56 93
05/30/24 07:15 05/30/24 07:15 05/30/24 07:15 05/30/24 07:15 05/30/24 07:15
Intake & Output
05/28/24 05/29/24 05/30/24 05/31/24
06:59 06:59 06:59 06:59
Intake Total 100 / 100 1010 / 1010 950 / 950
Output Total 2575 / 2575 1850 / 1850 400 / 400
Balance -2475 / -2475 -840 / -840 550 / 550
Physical Exam
Physical Exam
GEN: No distress, awake, Ox3, sitting in bed
HEENT: supple, anicteric, mmm
LUNGS: CTA, no wheezes/rales on room air
CV: Reg, S1/S2, 2/6 harsh radiating murmur, no rub or gallop
ABD: soft, BS+, NT/ND
EXT: No edema, clubbing or cyanosis
NEURO: Gross non-focal
SKIN: No rash, warm, dry, pink, ecchymosis noted on bilateral upper extremities
--- NOTE | 2024-05-30 11:58 | W.DCSUMMARY ---
Addendum entered and electronically signed by Bakari Cochran MD 05/31/24 11:12:
Discharge date 05/31/24
Original Note:
Discharge Summary
Discharge Data
Date of Admission: 05/23/24
Date of Discharge: 05/30/24
-
Pending Results: No
Hospital Course
88F HFmrEF, interstitial fibrosis, atrial fibrillation, aortic stenosis, asthma, hyponatremia, labile hypertension, DM, CVA, seizure disorder, breast cancer with left lumpectomy/radiation mastectomy, right carotid stenosis with stent, restless leg
syndrome, GERD/hiatal hernia, anxiety disorder, seizure disorder came with SOB, thought to be multifactorial 2/2 ILD, CHF exacerbation. Managed in ICU 2/2 hypotension initially. Improved to baseline. . Medically stable for rehab - CM to work on it.
As per VSE: continuation of regular, mildly thick liquids, and aspiration risk hydration protocol to allow water (without thickener) between meals after oral care. Meds crushed in puree. Reflux precautions. Outpatient referrals to cardiology and
pulm provided.
I have spent at least 38min discharging the patient
A/P:
#Acute hypoxemic hypercarbic respiratory failure 2/2 combination of acute on chronic HFmrEF exacerbation and COPD exacerbation on chronic ILD
#Unspecified organism pneumonia
#Non-ischemic myocardial injury
#Paroxysmal Afib
#DM type 2 with neuropathy
#Acute urinary retention
#Lactic acidosis 2/2 metformin
#Dysphagia, unspecified
#Hx of CVA
#Seizure d/o
#GERD
#Anxiety d/o
#Asymptomatic cholelithiasis
#Diverticulosis
#DJD
#Osteopenia
Discharge Plan
-
Patient Disposition: Care Home/SNF
Discharge Diagnosis/Procedures: CHF
Diet: Other diet
Additional Diets: Low sodium mildly thick liquid, aspiration risk hydration protocol to allow water (without thickener) between meals after oral care. Meds crushed in puree. Reflux precautions
Activity: As tolerated
Driving Restrictions: As prior to admission
Referrals:
Karri Mercado MD [Active] - in three to four weeks
Lorene Pak PA-C [Specified Professional Personl] - 06/22/24 3:40 pm (You have a follow up visit with Dr. Funes's Lorene HORTA, at the [facility]. Please call with questions. )
Nuzhat Zhu DO [Family Provider] -
Prescriptions:
New
amiodarone 200 mg Tablet
200 mg PO DAILY Qty: 30 0RF
glimepiride 2 mg Tablet
2 mg PO DAILY Qty: 30 0RF
docusate sodium 100 mg Capsule
100 mg PO BID Qty: 60 0RF
atorvastatin 40 mg Tablet
40 mg PO QPM Qty: 30 0RF
ipratropium-albuterol 0.5 mg-3 mg(2.5 mg base)/3 mL Solution For Nebulization
3 ml inhalation R Q4HPRN PRN (Reason: sob or wheezing) Qty: 90 0RF
furosemide 20 mg Tablet
20 mg PO DAILY Qty: 30 0RF
doxycycline hyclate 100 mg Capsule
100 mg PO Q12 Qty: 6 0RF
cefpodoxime 200 mg tablet
200 mg PO BID Qty: 6 0RF
Continued
acetaminophen 325 MG tablet
650 mg PO Q4HPRN PRN (Reason: DOUGLAS, mild pain, or temp >100.4F) 0RF
sennosides [senna] 8.6 MG tablet
8.6 mg PO BIDPRN PRN (Reason: constipation)
Patient Comments:
Not working very well
pantoprazole 40 MG tablet,delayed release (DR/EC)
20 mg PO DAILY
PreserVision AREDS 1 CAP capsule
1 cap PO BID
alprazolam 0.5 mg tablet
0.5 mg PO BIDPRN PRN (Reason: Anxiety)
clopidogrel 75 MG tablet
75 mg PO DAILY
apixaban 2.5 mg tablet
2.5 mg PO BID 30 Days Qty: 60 3RF
Discontinued
metformin 750 mg tablet extended release 24 hr
750 mg PO BID
amiodarone 200 mg tablet
200 mg PO BID 30 Days Qty: 60 0RF
Rx Instructions:
TWICE A DAY for 30 days; ONCE a day AFTER that.
metoprolol succinate 25 mg tablet extended release 24 hr
12.5 mg PO DAILY 30 Days Qty: 15 3RF
lisinopril 2.5 mg tablet
2.5 mg PO DAILY 30 Days Qty: 30 3RF
furosemide 20 mg tablet
20 mg PO .SEE BELOW
Patient Comments:
05/23/2024: Filled 05/22/24, pt has not started yet.
albuterol sulfate 90 mcg/actuation HFA aerosol inhaler
2 puff inhalation R Q6HPRN PRN (Reason: shortness of breath or wheezing)
Discharge Orders:
Discharge Patient (As Directed); Ordered 05/30/24
Ordered By: Bakari Cochran
Discharge Date and Time
Print Language: BENGALI
[2024-05-30 12:08] LABS: Glucose - Point of Care 213 mg/dl (70-99)
--- NOTE | 2024-05-30 12:13 | PTOTSP ---
Video Swallow Study
Summary: Patient with within functional oral stage and mild-moderate pharyngeal dysphagia with aspiration with an inconsistent and ineffective cough response to thin liquids. There was upper penetration of mildly thick liquids which cleared with a
cued cough and eliminated with a chin tuck. Esophageal sweep concerning for slow emptying.
Continued diet modifications recommended as outlined below with aspiration risk hydration protocol to allow thin water given reported decreased intake of thickened liquids/dehydration prior to admission. If patient/family wish for further diet
liberalization understanding risks/complications of aspiration can discuss further with physician.
Recommend:
1. Regular, Mildly Thick Liquids via cup
2. Medications - crushed in puree
3. Aspiration Risk Hydration Protocol - unlimited water and ice chips in between meals, after oral care.
4. Strategies: upright to 90 degrees, small single cup sips, slow rate, remain upright for at least 30 minutes after PO intake as a reflux precaution
5. Oral care 3x daily and before thin water/ice chips
6. Dysphagia therapy at the acute care level and after D/C from the acute care level.
7. Consider outpatient ENT consult to rule out any laryngeal changes contributing to dysphagia.
[2024-05-30] MEDS: TOPROL XL 12.5 MG PO (13:18)
[2024-05-30] MEDS: NOVOLOG FLEXPEN-MODERATE RESISTANCE 3 UNITS SC (13:25)
--- NOTE | 2024-05-30 14:39 | CM ---
CM reviewed chart, spoke with Codie from [facility] can accept patient for SNF tomorrow. CM spoke with patients daughter, Parvin, agreeable for patient to discharge tomorrow to [facility] Patient is [facility] patient, will need insurance auth.
Patients daughter reports she can provide transportation if patient is able to discharge earlier, patients daughter works in afternoon. CM will continue to follow for all discharge planning needs.
Plan; [facility] tomorrow pending insurance auth, Geri from [facility] initiating auth.
[2024-05-30 15:59] VITALS: BP 122/64
[2024-05-30 16:38] LABS: Glucose - Point of Care 109 mg/dl (70-99)
[2024-05-30] MEDS: ROBITUSSIN 100 MG PO ×2 (17:23→22:14)
[2024-05-30] MEDS: LIPITOR PO ×2 (17:23→17:46)
[2024-05-30] MEDS: ROCEPHIN 1000 MG IV (17:24)
[2024-05-30] MEDS: STERILE WATER FOR INJECTION 10 ML IV (17:24)
[2024-05-30 19:30] VITALS: BP 148/79
[2024-05-30] MEDS: XANAX 0.5 MG PO (19:54)
[2024-05-30] MEDS: MELATONIN 5 MG PO (19:55)
[2024-05-30 21:07] LABS: Glucose - Point of Care 139 mg/dl (70-99)
[2024-05-30 23:30] VITALS: BP 113/57
[2024-05-31 03:30] VITALS: BP 142/69
[2024-05-31 06:00] VITALS: BMI 19.1
[2024-05-31 06:45] LABS: Hematocrit 31.4 % (37.0-47.0); Hemoglobin 11.2 g/dL (12.0-16.0); Mean Corp Hgb Conc. 35.7 g/dL (33.0-37.0); Mean Corpuscular Hgb 30.3 pg (27.0-31.0); Mean Corpuscular Volume 84.9 fL (81.0-99.0); Mean Platelet Volume 10.3 fL (7.4-10.4); Platelet Count 200 10^3/uL (130-400); Red Cell Dist. Width 14.4 % (11.5-14.5); White Blood Cell Count 4.8 10^3/uL (4.8-10.8)
[2024-05-31 07:09] VITALS: BP 126/60
[2024-05-31 07:29] LABS: ALT (SGPT) 13 U/L (0-35); AST (SGOT) 29 U/L (14-36); Albumin 3.1 g/dl (3.5-5.0); Alkaline Phosphatase 76 U/L (38-126); Blood Urea Nitrogen 19 mg/dl (7-17); Calcium 8.9 mg/dl (8.4-10.2); Carbon Dioxide 28 mmol/L (22-30); Chloride 96 mmol/L (98-107); Estimated Creatinine Clearance 58 ml/min; Glucose 136 mg/dl (70-99); Magnesium 1.6 mg/dl (1.6-2.3); Phosphorus 3.7 mg/dl (2.5-4.5); Potassium 3.9 mmol/L (3.5-5.1); Sodium 131 mmol/L (135-145); Total Bilirubin 0.4 mg/dl (0.2-1.3); Total Protein 5.4 g/dl (6.3-8.2); eGFR > 60.00
[2024-05-31 07:30] VITALS: BP 123/61
[2024-05-31 07:56] LABS: Glucose - Point of Care 141 mg/dl (70-99)
[2024-05-31] MEDS: NOVOLOG FLEXPEN-MODERATE RESISTANCE SC (07:58)
[2024-05-31] MEDS: COLACE 100 MG PO (08:02)
[2024-05-31] MEDS: MIRALAX PO (08:02)
[2024-05-31] MEDS: LASIX 20 MG PO (08:03)
[2024-05-31] MEDS: PLAVIX 75 MG PO (08:03)
[2024-05-31] MEDS: AMARYL 2 MG PO (08:03)
[2024-05-31] MEDS: PACERONE 200 MG PO (08:04)
[2024-05-31] MEDS: TOPROL XL 12.5 MG PO (08:04)
[2024-05-31] MEDS: ELIQUIS 2.5 MG PO (08:04)
[2024-05-31] MEDS: OCUVITE SOFTGEL 1 CAP PO (08:05)
[2024-05-31] MEDS: PROTONIX 20 MG PO (08:05)
[2024-05-31] MEDS: VIBRAMYCIN 100 MG PO (08:05)
[2024-05-31] MEDS: MAGNESIUM OXIDE 500 MG PO (08:08)
--- NOTE | 2024-05-31 09:46 | CM ---
Addendum entered by Yaquelin Vazquez 05/31/24 13:21:
Daughter seen bedside with patient, IMM signed, placed in chart, daughter provided with copy.
Addendum entered by Yaquelin Vazquez 05/31/24 12:41:
CM placed call to Parvin, left voicemail reviewing IMM.
Addendum entered by Yaquelin Vazquez 05/31/24 11:12:
CM left VM for patients daughter, Parvin, who will provide transportation for patient. Patient will need Covid test prior to discharge. CM will continue to follow for all discharge planning needs.
Plan; [facility] SNF, daughter to transport
Report: [phone]

Original Note:
Per Celina Nevarez admitting representative, auth approved for [facility], skilled level 1, 05/31-06/05, auth #[id number], next review 06/05 to . Patient daughter able to transport in morning/early afternoon as patients daughter works at 3:00
p.m. CM will continue to follow for all discharge planning needs.
Plan; [facility]] SNF, daughter to transport.
[2024-05-31] MEDS: MUCINEX 1200 MG PO (10:45)
[2024-05-31 10:54] VITALS: BP 121/58
[2024-05-31 11:06] LABS: NT-proBNP 2490 pg/ml
--- NOTE | 2024-05-31 11:09 | W.PN.HOSP.TC ---
Today's Communication/Plan
-
dc
Assessment / Plan
Assessment / Plan
88F HFmrEF, interstitial fibrosis, atrial fibrillation, aortic stenosis, asthma, hyponatremia, labile hypertension, DM, CVA, seizure disorder, breast cancer with left lumpectomy/radiation mastectomy, right carotid stenosis with stent, restless leg
syndrome, GERD/hiatal hernia, anxiety disorder, seizure disorder came with SOB, thought to be multifactorial 2/2 ILD, CHF exacerbation. Medically stable for rehab - CM to work on it. As per VSE: continuation of regular, mildly thick liquids, and
aspiration risk hydration protocol to allow water (without thickener) between meals after oral care. Meds crushed in puree. Reflux precautions. Outpatient referrals to cardiology and pulm provided. On the day of D/C - XR with resolving changes,
proBNP not elevated. Medically stable for d/c
A/P:
#Acute hypoxemic hypercarbic respiratory failure 2/2 combination of acute on chronic HFmrEF exacerbation and COPD exacerbation on chronic ILD
#Unspecified organism pneumonia
Currently on Ceftriaxone/DOxy
COnt bronchodilators
Lasix, daily weight, follow electrolytes
Cardiology follows: diuresis, outpatient follow up
Pulm follows: stopped steroids, outpatient follow up for PFT, especially with amio load
#Non-ischemic myocardial injury
as per cardiology. Outpatient ischemic eval advised
#Paroxysmal Afib
cont rate/rhythm control and Eliquis
#DM type 2 with neuropathy
Insulin SS, DM diet, Accuchecks
Metformin stopped 2/2 lactic acidosis
#Acute urinary retention
Passed TOV
#Lactic acidosis
on admission
resolved
#Dysphagia, unspecified
CORRECTIONAL MEDICINE PHYSICIAN, dysphagia diet
#Hx of CVA
#Seizure d/o
#GERD
#Anxiety d/o
Seizure precautions
cont home meds
#Asymptomatic cholelithiasis
#Diverticulosis
#DJD
#Osteopenia
F/U as outpatient
High fiber diet
DVT ppx ELiquis
DNR/DNI
I have spent at least 39min reviewing chart, test results, communication with consultants and direct patient care
Anticipated Discharge: Today
Subjective/Interval History
-
Date of Service: May 31, 2024
Objective Data
-
Labs:
Laboratory Results
05/31/24
05:40
WBC 4.8
Hgb 11.2 L
Hct 31.4 L
Plt Count 200
Sodium 131 L
Potassium 3.9
Chloride 96 L
Carbon Dioxide 28
BUN 19 H
Creatinine 0.6
Glucose 136 H
Calcium 8.9
Total Bilirubin 0.4
AST 29
ALT 13
Alkaline Phosphatase 76
Vital Signs:
Vital Signs
Temp Pulse Resp BP Pulse Ox
97.5 F 72 16 121/58 94
05/31/24 10:54 05/31/24 10:54 05/31/24 10:54 05/31/24 10:54 05/31/24 10:54
I&O
05/30/24 05/31/24 06/01/24
06:59 06:59 06:59
Intake Total 950 / 950 897 / 897
Output Total 400 / 400
Balance 550 / 550 897 / 897
Review of Systems
-
History Source: Patient
All other systems: Reviewed and negative
Respiratory: Reports Cough
Physical Exam
-
General: No Apparent Distress
HEENT: Normocephalic
Respiratory: Other (gross tracheal crackles); Negative Wheezes or Rales
Cardiac: Regular Rhythm
GI: Soft, Nontender and Nondistended
Musculoskeletal: No Clubbing and No Cyanosis
Skin: Warm
Neuro: Awake, Alert, Oriented and AO x 3
Psych: Calm
[2024-05-31 12:04] LABS: COVID-19 Antigen Negative (Negative)
[2024-05-31 12:08] LABS: Glucose - Point of Care 182 mg/dl (70-99)
[2024-05-31] MEDS: NOVOLOG FLEXPEN-MODERATE RESISTANCE 1 UNITS SC (12:19)
--- NOTE | 2024-05-31 14:33 | PTCARENOTE ---
Report called and given to Santiago Chu
== END 2024-05-31 14:31 | DRG 291 ==
LOC: 4 WEST ACU 20:05
PROVIDERS: Internal Medicine; Nurse Practitioner; Student in an Organized Health Care Education/Training Program; ADMITTING PHYSICIAN Hospitalist; ATTENDING PHYSICIAN Internal Medicine; EMERGENCY PHYSICIAN Emergency Medicine; FAMILY PHYSICIAN Family Medicine; OTHER PHYSICIAN Internal Medicine; OTHER PHYSICIAN Internal Medicine Cardiovascular Disease
PROC: 5A09357 Assistance with Respiratory Ventilation, Less than 24 Consecutive Hours, Continuous Positive Airway Pressure (ICD-10-PCS; 2024-05-23)
DX: I11.0 Hypertensive heart disease with heart failure (principal); I50.43 Acute on chronic combined systolic (congestive) and diastolic (congestive) heart failure; J18.9 Pneumonia, unspecified organism; J96.01 Acute respiratory failure with hypoxia; J96.02 Acute respiratory failure with hypercapnia; J44.0 Chronic obstructive pulmonary disease with (acute) lower respiratory infection; J44.1 Chronic obstructive pulmonary disease with (acute) exacerbation; J47.0 Bronchiectasis with acute lower respiratory infection; E87.1 Hypo-osmolality and hyponatremia; Q21.12 Patent foramen ovale; E87.29 Other acidosis; Q39.9 Congenital malformation of esophagus, unspecified; R57.9 Shock, unspecified; Z66 Do not resuscitate; I27.20 Pulmonary hypertension, unspecified; E11.40 Type 2 diabetes mellitus with diabetic neuropathy, unspecified; I65.21 Occlusion and stenosis of right carotid artery; D64.9 Anemia, unspecified; G40.909 Epilepsy, unspecified, not intractable, without status epilepticus; G25.81 Restless legs syndrome; I35.0 Nonrheumatic aortic (valve) stenosis; I5A Non-ischemic myocardial injury (non-traumatic); J84.10 Pulmonary fibrosis, unspecified; T38.3X5A Adverse effect of insulin and oral hypoglycemic [antidiabetic] drugs, initial encounter; I48.0 Paroxysmal atrial fibrillation; E61.1 Iron deficiency; E78.00 Pure hypercholesterolemia, unspecified; I25.10 Atherosclerotic heart disease of native coronary artery without angina pectoris; F41.9 Anxiety disorder, unspecified; K21.9 Gastro-esophageal reflux disease without esophagitis; K44.9 Diaphragmatic hernia without obstruction or gangrene; K57.30 Diverticulosis of large intestine without perforation or abscess without bleeding; K59.00 Constipation, unspecified; K80.20 Calculus of gallbladder without cholecystitis without obstruction; M19.90 Unspecified osteoarthritis, unspecified site; M85.80 Other specified disorders of bone density and structure, unspecified site; R26.9 Unspecified abnormalities of gait and mobility; R33.9 Retention of urine, unspecified; R13.10 Dysphagia, unspecified; Z91.199 Patient's noncompliance with other medical treatment and regimen due to unspecified reason; Z79.01 Long term (current) use of anticoagulants; Z79.02 Long term (current) use of antithrombotics/antiplatelets; Z79.84 Long term (current) use of oral hypoglycemic drugs; Z79.899 Other long term (current) drug therapy; Z86.73 Personal history of transient ischemic attack (TIA), and cerebral infarction without residual deficits; Z85.3 Personal history of malignant neoplasm of breast; Z87.440 Personal history of urinary (tract) infections; Z87.891 Personal history of nicotine dependence; Z92.3 Personal history of irradiation; Z90.12 Acquired absence of left breast and nipple; Z90.49 Acquired absence of other specified parts of digestive tract; Z90.710 Acquired absence of both cervix and uterus; Z88.3 Allergy status to other anti-infective agents; Z88.5 Allergy status to narcotic agent
CPT/HCPCS: 93308; 36600; 71045; 71046; 71260; 74177; 74230; 80053; 80061; 81003; 82805; 82962; 83036; 83605; 83735; 83880; 84100; 84145; 84484; 85025; 85027; 85379; 87040; 87641; 87811; 92610; 92611; 93005; 94640; 94660; 96365; 96375; 97116; 97163; 97167; 97530; 97535; 99285; Q9967

== ENCOUNTER → 2024-08-08 13:41 | Outpatient (REF) | payer OTHER, SELFPAY | LOC: PET 13:41 | PROVIDERS: ATTENDING PHYSICIAN Physician Assistant | DX: R06.02 Shortness of breath (principal) | CPT/HCPCS: 78431; A9555; J2785 ==

== ENCOUNTER 2024-09-08 01:40 | Inpatient (IN) | payer OTHER, SELFPAY ==
[2024-09-07 22:42] VITALS: BP 154/95
[2024-09-07 22:45] VITALS: BP 154/95
[2024-09-07 22:53] VITALS: PULSE 3; PULSE 87
--- NOTE | 2024-09-07 22:57 | ED.GENMED ---
History of Present Illness
General
Chief Complaint: Breathing Problem
Source: patient and ambulance crew
Exam Limitations: other (Patient hard of hearing, no hearing aids with her)
Time Seen by Provider: 09/07/24 22:57
Nursing documentation reviewed up to this point in time: agreed with
History of Present Illness
History of Present Illness:
89-year-old female presents department due to shortness of breath. Limited history given by EMS.
Past History
Past History
ED Past Medical History: Cancer (breast, with radiation therapy), CVA (April 2021), HTN (labile), NIDDM, Seizures (Possible seizures, abnormal EEG), Psychiatric (major depression), Other (iron deficiency anemia, aortic stenosis, pulmonary
hypertension, seizure) and Other (hiatal hernia)
ED Past Surgical History: Appendectomy, Gynecological (hysterectomy) and Other (left-sided mastectomy 2017, right CEA)
Social History
Tobacco: Other (distant history)
Alcohol: None
Drug: None
Personal:
Living: with family
Employment: Retired
Family History
Family History: Other (reviewed and noncontributory)
Review of Systems
Review of Systems
Allergies reviewed?: Yes
All Other Systems: Not applicable
Constitutional: Reports no symptoms
EENT: Reports no symptoms
Respiratory: Reports trouble breathing
Cardiac: Reports no symptoms
ABD/GI: Reports no symptoms
: Reports no symptoms
Musculoskeletal: Reports no symptoms
Skin: Reports no symptoms
Neurological: Reports weakness
Endocrine: Reports no symptoms
Hematologic/Lymphatic: Reports no symptoms
Psychiatric: Reports no symptoms
Phy Exam
Physical Exam
Physical Exam:
Physical Exam
General: Moderate respiratory distress, afebrile
Neck: supple. no meningeal signs. normal posterior pharynx
Heart: s1/s2 regular rate and rhythm, no murmur. equal radial
pulses.
HEENT: Pupils equal round reactive to light, EOMI
Lungs: Moderate respiratory distress. Wheezing, rales bilaterally
Abdomen: normal bowel sounds. not tender. no CVAT
Neuro: alert and oriented. no focal neurological deficits cranial nerves II through XII intact
Skin: no rash
Psychiatric: well kept. interactive and cooperative
Extremities: no edema. no calf tenderness. negative homans. good distal pulses
Scores
Heart Failure Risk
Heart Failure Risk Score: Yes
History of Stroke or TIA: No
History of intubation for respiratory distress: No
Heart rate on ED arrival >/= 110: No
SaO2 <90% on arrival on room air: Yes
HR >/=110 during 3min walk test (or too ill to perform test): Yes
ECG has acute ischemic changes: No
Urea >/=12mmol/L (BUN 33.6mg/dL): No
Serum CO2>/=35mmol/L: No
Troponin I or T elevated to DC Level (0.4mg/dL): No
NT-proBNP >/=5,000ng/L (5,000pg/ml): Yes
HF Risk Score: 4
Admission Status: HIGH RISK 26.1% Consider SNF treatment or admission to hospital
Sepsis
Sepsis Screening
Sepsis Assessment: Sepsis
Sepsis Screen
Sepsis Screen: Sepsis
Date: 09/08/24
Time: 01:41
Course
Orders/Labs/Results
Orders:
Orders
09/07/24 22:44
Electrocardiogram (*1) Urgent
Reason for Study: Shortness of Breath
EKG- Treatment ONCE
09/07/24 22:58
CR Chest Portable - 1 View Urgent
Comment:
Reason For Exam: short of breath
Reason Study Needs to be Portable: Patient Unstable
09/07/24 23:02
COVID-19 Antigen Urgent
Source: Nasal Swab
Comprehensive Metabolic Panel Urgent
NT-proBNP Urgent
Troponin I Urgent
Influenza A+B Rapid Molecular Urgent
LEROY Source: Nasal Swab
Specimen Description:
09/07/24 23:03
Complete Blood Count/With Diff Urgent
Lactic Acid Urgent
09/07/24 23:04
Blood Culture Urgent
LEROY Source: Blood/Venous
Specimen Description:
09/07/24 23:05
Blood Culture Q30M
LEROY Source: Blood/Venous
Specimen Description:
Blood Culture Urgent
LEROY Source: Blood/Venous
Specimen Description:
09/07/24 23:36
Cefepime HCl [Maxipime] 2,000 mg IV NOW STA
Vancomycin [Vancocin] 1,500 mg 0.9% Sodium Chloride 500 ml [Nss] 500 ml IV NOW
09/07/24 23:45
Blood Culture Q30M
LEROY Source: Blood/Venous
Specimen Description:
09/07/24 23:47
Urinalysis Reflex To Culture Urgent
Date Specimen was Collected: 09/07/24
Time Specimen was Collected: 23:18
Urine Microscopic Reflex Cult Urgent
Urine Culture Urgent
LEROY Source: U
Specimen Description:
Date Specimen was Collected: 09/07/24
Time Specimen was Collected: 23:18
09/07/24 23:53
Vancomycin [Vancocin] 1,500 mg 0.9% Sodium Chloride 500 ml [Nss] 500 ml IV NOW
09/08/24 01:22
Admit/Transfer Patient As Directed
Co-Sign Provider:
Level of Care: Inpatient admission
Assign to:: IMU- Intermediate Care
Physician / Group: Godfrey
Diagnosis: CHF, Fever
Reason for Hospitalization: CHF, Fever
Expected length of stay greater than two midnights?: Yes
ELOS- Estimated Length of Stay in days: 3
I certify the patient meets the requirements for IP care: Yes
PRN Pain Medication Management As Directed
May give lesser potent ordered pain med per pt: Yes
preference::
Protocol:: Medication orders for pain may be administered in a
manner that supports deferring to patient preference
when the pt is:
- Requesting an ordered lesser potent pain medication.
Least to most potent pain medications are defined
as: acetaminophen < NSAID < tramadol < opioids
(morphine, oxycodone, hydromorphone).
- Requesting a lesser dose of the same medication IF
ORDERED.
- Requesting a less intrusive route of administration
if both routes are prescribed by the provider (PO <
IV).
09/08/24 01:23
Code Status As Directed
Resuscitation Status: Do not resuscitate
Reached after discussion with pt or family/Healthcare POA: Yes
09/08/24 01:25
DNR Bracelet Application ONCE
Abnormal Lab Results
09/07/24 09/07/24 09/07/24
23:02 23:03 23:47
RBC 3.92 L 10^6/uL
(4.20-5.40)
Hgb 11.2 L g/dL
(12.0-16.0)
Hct 36.2 L %
(37.0-47.0)
MCHC 30.9 L g/dL
(33.0-37.0)
RDW 15.4 H %
(11.5-14.5)
Abs Immat Gran (auto) 0.1 H 10^3/uL
(0-0.05)
Absolute Neuts (auto) 6.7 H 10^3/uL
(1.4-6.5)
Absolute Monos (auto) 0.9 H 10^3/uL
(0.1-0.6)
Sodium 128 L mmol/L
(135-145)
Chloride 93 L mmol/L
(98-107)
BUN 24 H mg/dl
(7-17)
Glucose 221 H mg/dl
(70-99)
Lactic Acid 3.2 H mmol/L
(0.7-2.0)
AST 43 H U/L
(14-36)
Alkaline Phosphatase 154 H U/L
(38-126)
Ur Occult Blood Reflex 1+ A
(Negative)
Urine Nitrite (Reflex) Positive A
(Negative)
Leukocyte Esterase Rfl 2+ A
(Negative)
Urine RBC 3-6 A /HPF
(0-2)
Urine WBC (Reflex) >100 A /HPF
(0-5)
Urine Bacteria (Reflex) Many A
(Negative)
09/07/24 23:03
09/07/24 23:02
Vital Signs
Initial and Last Documented VS:
Initial Vital Signs
Temp Pulse Resp BP Pulse Ox
100.7 F H 94 19 154/95 99
09/07/24 22:42 09/07/24 22:42 09/07/24 22:42 09/07/24 22:42 09/07/24 22:42
Last Documented Vital Signs
Temp Pulse Resp BP Pulse Ox
100.7 F H 76 22 106/52 95
09/07/24 22:42 09/08/24 01:22 09/08/24 01:15 09/08/24 01:22 09/08/24 01:22
MDM/Problems Addressed
Differential Diagnosis Includes:
Sepsis, UTI, COPD, pneumonia
MDM/Problems Addressed:
89 -year-old female with UTI, respiratory insufficiency, fever, CHF, pulmonary fibrosis. Improved after BiPAP. IV cefepime given. IV vancomycin given. Admit to hospitalist.
*Radiology
Radiology exam reviewed: preliminary read by ED provider (Chest x-ray shows pulmonary fibrosis)
*Pulse Oximetry
Patient hypoxic: yes
*EKG
Interpreted by ED Provider?: Yes
EKG Intrepretation Date: 09/07/24
EKG Intrepretation Time: 22:48
Interpretation: abnormal
Comparison EKG: changes noted
Heart Rate: 94
Rate: normal
Rhythm: sinus
Datto: left axis deviation
Interval: normal interval
QRS Pattern: left vent hypertrophy
Ischemia: non-specific ST changes
*Special Technical Operations Officer Interpretation
Rate: normal
Interpretation: normal
Heart Rate: 88
Rhythm: sinus
*Critical Care Note
Total Time (30-74mins, 75-104mins- exclusive of procedures): 30
comment:
Critical care statement: A total of 30 minutes of critical care time was provided for this patient. This includes management of unstable vital signs, evaluation of the patient at bedside, reviewing the patient's pertinent medical records, discussion
with consultants, review of old EKGs and review of pertinent medical records. This time with separate from time utilized to perform the aforementioned documented procedures
Data Reviewed
Further Testing Considered But Not Given:
CT chest not indicated
Patient Management
Social determinants of health affecting care: Living situation
Discussion with other providers: Hospitalist
Escalation/DeEscalation of care consider admission/obs:
Admission indicated
ED Attending Note
-
Portions of this chart may have been created with voice recognition software.� Occasional wrong word or��sound alike� substitutions may have occurred due to the inherent limitations of voice recognition software.
Discharge Plan
Departure
Patient Disposition: Admit
Date of Disposition: 09/07/24
Time of Disposition: 23:37
Admit to: IMU
Presentation/result/management discussed w/ accepting MD/DO: Hospitalist
Patient with high blood pressure during this ER visit?: Yes
Condition: Fair
Discharge Problem:
Acute respiratory insufficiency, Acute hyponatremia, Pulmonary fibrosis, Acute exacerbation of CHF (congestive heart failure), Pneumonia, Hyponatremia, Acute UTI
Prescriptions:
No Action
acetaminophen 325 MG tablet
650 mg PO Q4HPRN PRN (Reason: DOUGLAS, mild pain, or temp >100.4F) 0RF
sennosides [senna] 8.6 MG tablet
8.6 mg PO BIDPRN PRN (Reason: constipation)
Patient Comments:
Not working very well
pantoprazole 40 MG tablet,delayed release (DR/EC)
20 mg PO DAILY
PreserVision AREDS 1 CAP capsule
1 cap PO BID
alprazolam 0.5 mg tablet
0.5 mg PO BIDPRN PRN (Reason: Anxiety)
clopidogrel 75 MG tablet
75 mg PO DAILY
amiodarone 200 mg Tablet
200 mg PO DAILY Qty: 30 0RF
glimepiride 2 mg Tablet
2 mg PO DAILY Qty: 30 0RF
docusate sodium 100 mg Capsule
100 mg PO BID Qty: 60 0RF
ipratropium-albuterol 0.5 mg-3 mg(2.5 mg base)/3 mL Solution For Nebulization
3 ml inhalation R Q4HPRN PRN (Reason: sob or wheezing) Qty: 90 0RF
furosemide 20 mg Tablet
20 mg PO DAILY Qty: 30 0RF
metoprolol succinate 25 mg Tablet Extended Release 24 Hr
12.5 mg PO DAILY Qty: 30 0RF
magnesium oxide 500 mg magnesium Tablet
500 mg PO BID Qty: 60 0RF
benzonatate 100 mg Capsule
100 mg PO TIDPRN PRN (Reason: cough) Qty: 10 0RF
guaifenesin 600 mg Tablet Extended Release 12hr
1,200 mg PO Q12 Qty: 60 0RF
methenamine hippurate [Hiprex] 1 gram Tablet
1 g PO BID
apixaban 5 mg Tablet
5 mg PO BID
Referrals:
Nuzhat Zhu DO [Family Provider] -
Discharge Date and Time
Print Language: LUX[place]
[2024-09-07 23:00] VITALS: BP 143/108
[2024-09-07 23:11] LABS: % Basophils 0.5 % (0-2); % Eosinophils 0.5 % (0-6); % Immature Granulocytes 0.5 % (0-0.5); % Lymphocytes 25.1 % (20.5-51.1); % Monocytes 8.7 % (1.7-9.3); % Neutrophils 64.7 % (42.2-75.2); Absolute Basophils 0.1 10^3/uL (0-0.2); Absolute Eosinophils 0.1 10^3/uL (0-0.7); Absolute Immature Granulocytes 0.1 10^3/uL (0-0.05); Absolute Lymphocytes 2.6 10^3/uL (1.2-3.4); Absolute Monocytes 0.9 10^3/uL (0.1-0.6); Absolute Neutrophils 6.7 10^3/uL (1.4-6.5); Hematocrit 36.2 % (37.0-47.0); Hemoglobin 11.2 g/dL (12.0-16.0); Mean Corp Hgb Conc. 30.9 g/dL (33.0-37.0); Mean Corpuscular Hgb 28.6 pg (27.0-31.0); Mean Corpuscular Volume 92.3 fL (81.0-99.0); Mean Platelet Volume 9.9 fL (7.4-10.4); Nucleated Red Blood Cells % 0 %; Platelet Count 269 10^3/uL (130-400); Red Blood Cell Count 3.92 10^6/uL (4.20-5.40); Red Cell Dist. Width 15.4 % (11.5-14.5); White Blood Cell Count 10.4 10^3/uL (4.8-10.8)
[2024-09-07 23:29] LABS: ALT (SGPT) 18 U/L (0-35); AST (SGOT) 43 U/L (14-36); Albumin 4.2 g/dl (3.5-5.0); Alkaline Phosphatase 154 U/L (38-126); Blood Urea Nitrogen 24 mg/dl (7-17); Calcium 9.3 mg/dl (8.4-10.2); Carbon Dioxide 23 mmol/L (22-30); Chloride 93 mmol/L (98-107); Glucose 221 mg/dl (70-99); Potassium 4.5 mmol/L (3.5-5.1); Sodium 128 mmol/L (135-145); Total Bilirubin 0.5 mg/dl (0.2-1.3); Total Protein 6.9 g/dl (6.3-8.2); eGFR > 60.00
[2024-09-07 23:30] LABS: COVID-19 Antigen Negative (Negative)
[2024-09-07 23:34] LABS: NT-proBNP 7530 pg/ml; Troponin I 0.019 ng/ml
[2024-09-07 23:40] LABS: Lactic Acid 3.2 mmol/L (0.7-2.0)
[2024-09-07 23:54] LABS: Urine Albumin Trace (Neg - Trace); Urine Bilirubin Negative (Negative); Urine Character Slightly Cloudy (Clear); Urine Color Yellow; Urine Glucose Negative (Negative); Urine Ketone Negative (Negative); Urine Leukocyte 2+ (Negative); Urine Nitrite Positive (Negative); Urine Occult Blood 1+ (Negative); Urine Specific Gravity 1.015 (<1.030); Urine Urobilinogen Negative (Neg - 1+)
[2024-09-07] MEDS: MAXIPIME 2000 MG IV (23:55)
[2024-09-08] VITALS (23 sets, daily range): BP systolic 82–133; BP diastolic 43–89; PULSE 65; O2SAT 97
[2024-09-08] MEDS: VANCOCIN 530 MG IV (00:08)
[2024-09-08 00:36] LABS: Urine Amorphous Seen; Urine Bacteria Many (Negative); Urine Squamous Cell >30 /LPF (Few); Urine White Cell >100 /HPF (0-5)
--- NOTE | 2024-09-08 00:51 | HPS.HSE ---
Family Physician
-
Family Physician: Nuzhat Zhu
Chief Complaint
-
SOB, Fall
History of Present Illness
Patient is an 89y F with PMH significant for CHF, pulmonary fibrosis, DM-II and anxiety who presents to ED via EMS for evaluation of dyspnea / fall at home. History obtained from patient and family at the bedside. Patient was reportedly 'found
down' at home this evening and family was unable to help her up. 911 was called and patient appeared to be in respiratory distress upon their arrival. BiPAP mask as placed by EMS and patient brought to the ED for evaluation. In the ED, patient is
resting comfortably on BiPAP; though, she appears somewhat anxious / tearful at times.
Patient has been staying with her son recently - and he has been ill with GI symptoms consistent with recent enteritis seen in the community.
Patient has had some nausea and poor appetite - but no emesis or loose stools. She has been feeling very weak and she notes that her legs 'gave out' this evening and she 'sank' to the floor.
She denies striking her head or any other significant trauma or injury. She denies any LOC.
Patient does report recent, non-productive cough. No fevers / chills.
She has noted increased frequency of urination and called her PCP today to report these symptoms. He prescribed amoxicillin for presumed UTI and she has taken a single dose of this thus far.
No other new medications since her recent admission / discharge.
Medical History
Past Medical History
Past Medical History: Reports Other
Additional Past Medical History:
HFmrEF
Pulmonary Fibrosis
Paroxysmal Atrial Fibrillation
ASCVD / Multiple CVAs, Carotid Stenosis
DM-II
Breast Cancer s/p Left Mastectomy and XRT
GERD / Hiatal Hernia
Chronic Hyponatremia
Labile Blood Pressure
History of Seizure Disorder
RLS
Anxiety Disorder
Past Surgical History: Reports Other
Additional Past Surgical History:
Appendectomy
Hysterectomy
Right CEA
Left Lumpectomy
Left Mastectomy
Social History
Tobacco: Non-smoker
Alcohol: None
Drug: None
Family History
Family History: Not pertinent
Allergies / Home Medications
Allergies reflects when Allergies were last updated in [facility].
Home Medications with original date entered in [facility]
Allergy/Medication List:
Allergies
Allergy/AdvReac Type Severity Reaction Status Date / Time
codeine Allergy Nausea Verified 05/23/24 15:35
morphine Allergy Unknown Verified 05/23/24 15:35
nitrofurantoin Allergy Hives Verified 05/23/24 15:35
[From Macrobid]
Home Medications
acetaminophen 325 mg tablet 650 mg (2 x 325 mg) PO Q4HPRN PRN DOUGLAS, mild pain, or temp >100.4F 07/08/21
pantoprazole 40 mg tablet,delayed release 20 mg PO DAILY Gastrointestinal issue 02/09/22
sennosides 8.6 mg tablet (senna) 8.6 mg PO BIDPRN PRN constipation 02/09/22
vitamins A,C,Z-usrk-dudabf 4,296 mcg-226 mg-90 mg capsule (PreserVision AREDS) 1 cap PO BID Supplement 02/09/22
alprazolam 0.5 mg tablet 0.5 mg PO BIDPRN PRN Anxiety 09/26/23
clopidogrel 75 mg tablet 75 mg PO DAILY Blood Clot Prevention/Tx 09/26/23
amiodarone 200 mg tablet 200 mg PO DAILY #30 tabs 05/30/24
docusate sodium 100 mg capsule 100 mg PO BID #60 caps 05/30/24
furosemide 20 mg tablet 20 mg PO DAILY #30 tabs 05/30/24
glimepiride 2 mg tablet 2 mg PO DAILY #30 tabs 05/30/24
ipratropium 0.5 mg-albuterol 3 mg (2.5 mg base)/3 mL nebulization soln 3 ml inhalation R Q4HPRN PRN sob or wheezing #90 mL 05/30/24
metoprolol succinate 25 mg tablet,extended release 24 hr 12.5 mg (1/2 x 25 mg) PO DAILY #30 tabs 05/30/24
benzonatate 100 mg capsule 100 mg PO TIDPRN PRN cough #10 caps 05/31/24
guaifenesin 600 mg tablet, extended release 12 hr 1,200 mg (2 x 600 mg) PO Q12 #60 tabs 05/31/24
magnesium oxide 500 mg PO BID #60 tabs 05/31/24
apixaban 5 mg tablet 5 mg PO BID 09/08/24
methenamine hippurate 1 gram tablet 1 g PO BID 09/08/24
Review of Systems
-
History Source: Patient and Family
A 12 point ROS was completed and negative except as noted: Yes
Constitutional: Reports Fatigue; Denies Fever or Chills
EENT: Denies Sore Throat
Respiratory: Reports Cough and Trouble Breathing; Denies Hemoptysis
Cardiac: Denies Chest Pain or Palpitations
Abdomen/GI: Reports Nausea and Anorexia; Denies Abdominal Pain, Vomiting or Diarrhea
: Reports Frequency and Urgency; Denies Dysuria
Musculoskeletal: Denies Joint Pain or Edema
Neurological: Reports Weakness; Denies Dizzy or Headache
Psych: Reports Depression and Anxiety
Physical Exam
Vital Signs
Vital Signs
Temp Pulse Resp BP Pulse Ox
100.7 F H 93 19 154/95 99
09/07/24 22:42 09/07/24 22:45 09/07/24 22:42 09/07/24 22:45 09/07/24 22:42
Physical Exam
General: Other (89y F in mild distress due to anxiety.)
HEENT: Moist mucous membranes and PERRLA
Respiratory: Other (Few scattered rhonchi. No significant wheezes or rales.)
Cardiac: S1/S2, Regular Rhythm and Murmur (IV/ MYNOR)
GI: Soft, Non Tender, Non Distended and Normal Bowel Sounds
Musculoskeletal: No Clubbing, No Cyanosis and No Edema
Neuro: AO x 3
Laboratory Results
-
09/07/24 23:03
09/07/24 23:02
Laboratory Results
Lactic Acid 3.2 mmol/L (0.7-2.0) H 09/07/24 23:03
Total Bilirubin 0.5 mg/dl (0.2-1.3) 09/07/24 23:
AST 43 U/L (14-36) H 09/07/24 23:
ALT 18 U/L (0-35) 09/07/24:
Alkaline Phosphatase 154 U/L (38-126) H 09/07/24 23:02
Troponin I 0.019 ng/ml 09/07/24 23:02
Impression/Plan
-
A/P: Patient is an 89y F with PMH significant for CHF, A-Fib, DM-II and anxiety who presents to ED after being found down at home.
Weakness
Fever
Fall at Home
- Admit for further evaluation and treatment,.
- Some cough recently and ? pulmonary infection.
- Son with GI symptoms c/w Norovirus - check patient status.
- Cover with CAP antibiotics for now.
- Possible source - UA is contaminated / poor sample, will repeat.
- Follow-up culture data and clinical course.
- PT / OT evaluations.
- Follow fever curve and monitor for any new/ worsening symptoms.
SOB
- Patient arrived on BiPAP with SpO2 = 99-100%.
- No documented hypoxemia found.
- Trial off of BiPAP - supplemental O2 as needed.
- ? anxiety component to dyspnea / tachypnea.
- Hold any aggressive treatments for IPF / CHF / etc for now (see below).
Chronic HFmrEF
- Most recent Echo with EF = 40-45%. and segmental wall motion abnormalities.
- Despite elevation in ProBNP - patient doers not appear grossly volume overloaded.
- IV Lasix given in the ED with subsequent drop in BP.
- Would continue with usual PO regimen for now and monitor I/Os, daily weight, etc closely.
- Cardiology evaluation for additional recommendations.
Pulmonary Fibrosis
- Stable. Hold on any systemic corticosteroids, etc for now.
- Supplemental O2 as needed. Nebs PRN.
- IV abx for possible CAP.
- Follow for any clinical changes.
Paroxysmal Atrial Fibrillation
- Stable. Currently in sinus rhythm.
- Continue Eliquis for stroke risk reduction.
- Continue amiodarone.
ASCVD
- Patient with history of multiple CVAs and documented carotid disease s/p CEA.
- EKG changes during prior admission concerning for ischemia. Today's EKG appears improved.
- Patient had been scheduled for ischemic evaluation 12.3; however, she decided against this.
- Follow for any new changes.
- Cardiology eval as noted above.
- Continue Plavix, statin, etc.
DM-II
- Stable. Hold glimepiride.
- Follow glucose and cover with SSI as needed.
- Update A1C.
Generalized Anxiety
- Family questions whether anxiety regarding her fall / weakness contributed to her apparent respiratory distress.
- Continue current meds including PRN Xanax.
DVT Prophylaxis: Eliquis
Code Status: DNR
[2024-09-08 04:16] LABS: Hematocrit 31.3 % (37.0-47.0); Mean Corp Hgb Conc. 31.9 g/dL (33.0-37.0); Mean Corpuscular Volume 90.7 fL (81.0-99.0); Mean Platelet Volume 9.6 fL (7.4-10.4); Platelet Count 212 10^3/uL (130-400); Red Blood Cell Count 3.45 10^6/uL (4.20-5.40); Red Cell Dist. Width 15.3 % (11.5-14.5); White Blood Cell Count 7.8 10^3/uL (4.8-10.8)
[2024-09-08 04:43] LABS: Blood Urea Nitrogen 25 mg/dl (7-17); Calcium 8.7 mg/dl (8.4-10.2); Carbon Dioxide 22 mmol/L (22-30); Chloride 96 mmol/L (98-107); Glucose 264 mg/dl (70-99); Potassium 4.8 mmol/L (3.5-5.1); Sodium 129 mmol/L (135-145); eGFR > 60.00
[2024-09-08 04:44] LABS: Lactic Acid 1.4 mmol/L (0.7-2.0)
[2024-09-08 04:45] LABS: Troponin I 0.049 ng/ml
--- NOTE | 2024-09-08 04:48 | PTCARENOTE ---
received patient from ED without issues. Patient on 6L NC and sating in 90s. VS stable, NSR on monitor. Patient's daughter in law, Venus Easley, called asking for update. Patient stated is was okay to talk to her and share information. Francisca Easley
home phone is [phone] and cell phone is [phone]. Patient is Aox3 and resting in bed with call bartlett in reach.
[2024-09-08] MEDS: MUCINEX 1200 MG PO ×2 (07:42→19:25)
[2024-09-08] MEDS: TOPROL XL 12.5 MG PO (07:42)
[2024-09-08] MEDS: PACERONE 200 MG PO (07:43)
[2024-09-08] MEDS: ROCEPHIN 1000 MG IV (07:43)
[2024-09-08] MEDS: LASIX 40 MG IV (07:43)
[2024-09-08] MEDS: PROTONIX PO (07:44)
[2024-09-08 07:58] LABS: Glucose - Point of Care 256 mg/dl (70-99)
[2024-09-08] MEDS: NOVOLOG FLEXPEN-LOW RESISTANCE 3 UNITS SC ×2 (08:37→12:29)
--- NOTE | 2024-09-08 08:41 | PTCARENOTE ---
Pt to and from head CT via stretcher. Blood thinners not administered at this time pending results. Pt extremely tearful and anxious. Emotional support provided.
[2024-09-08 09:05] LABS: Glycohemoglobin (HgbA1c) 6.5 % (4.0-5.6)
[2024-09-08] MEDS: TYLENOL 650 MG PO ×2 (09:28→19:25)
[2024-09-08] MEDS: OCUVITE SOFTGEL 1 CAP PO ×2 (09:28→19:25)
--- NOTE | 2024-09-08 10:38 | W.PN.HOSP.TC ---
Addendum entered and electronically signed by Bakari Cochran MD 09/08/24 14:15:
#Hyponatremia
check urine Osm
Most likely hypervolemic
FR and follow BMP on Lasix
Original Note:
Today's Communication/Plan
-
see PN
Assessment / Plan
Assessment / Plan
89yo F with pulmonary fibrosis, CHF, DM, CVA, CAD, recurrent UTI came after she fell at home since she was not steady on her feet. Found UTI, CHF exacerbation
A/P:
#Fall 2/[address] head without bleeding or hematoma
PT/OT
#Acute hypoxic respiratory failure
multifactorial 2/2 CHF and cannot exclude COPD exacerbation since patient is wheezing
Acute on chronic HFrEF exacerbation
#Ischemic CM
#PAroxysmal Afib
#Non-ischemic myocardial injury
LAsix, daily weight, I&O
Telemetry
cont rate control
Cardiology cosnult
cont to trend troponin
Repeat Echo
Cardio consult
#Mastoid cell opacification
no ear pain
outpatient ENT
#UTI
ROcephim, pending Ucx
Bcx NTD
#Pulmonary fibrosis
concern for flare
Pulm consult
No signs of pneumonia on XR
#DM type 2 with neuropathy
Accuchecks, Insulin SS, DM diet
CT chest
#Hx of CVA
#Carotis stenosis s/p CEA
#Amxiety d/o
cont home meds
#Mild anemia
follow CBC
outpatient w/u by PCP
DVT ppx ELiquis
DNR/DNI
I have spent at least 59min reviewing the chart, test results, communication with consultants and direct patient care
Anticipated Discharge: > 48 hours
Subjective/Interval History
-
Date of Service: September 08, 2024
Objective Data
-
Labs:
Laboratory Results
09/07/24 09/07/24 09/08/24
23:02 23:03 03:56
WBC 10.4 7.8
Hgb 11.2 L 10.0 L
Hct 36.2 L 31.3 L
Plt Count 269 212 D
Sodium 128 L 129 L
Potassium 4.5 4.8
Chloride 93 L 96 L
Carbon Dioxide 23 22
BUN 24 H 25 H
Creatinine 0.8 0.8
Glucose 221 H 264 H
Calcium 9.3 8.7
Total Bilirubin 0.5
AST 43 H
ALT 18
Alkaline Phosphatase 154 H
09/08/24 09/08/24
10:31 18:31
WBC
Hgb
Hct
Plt Count
Sodium Pending Pending
Potassium Pending Pending
Chloride Pending Pending
Carbon Dioxide Pending Pending
BUN Pending Pending
Creatinine Pending Pending
Glucose Pending Pending
Calcium Pending Pending
Total Bilirubin
AST
ALT
Alkaline Phosphatase
Vital Signs:
Vital Signs
Temp Pulse Resp BP Pulse Ox
98.2 F 71 19 102/89 97
09/08/24 04:09 09/08/24 05:45 09/08/24 05:45 09/08/24 02:20 09/08/24 07:42
Review of Systems
-
History Source: Patient
All other systems: Reviewed and negative
Physical Exam
-
General: Comfortable
HEENT: Moist Mucous Membranes
Respiratory: Wheezes and Rales
Cardiac: Irregular Rhythm
GI: Soft, Nontender and Nondistended
Musculoskeletal: No Clubbing, No Cyanosis and No Edema
Neuro: Awake, Alert, Oriented and AO x 3
Psych: Calm
--- NOTE | 2024-09-08 10:42 | CON.PUL ---
Consultation
Consultation Request
Date/Time Consultation Requested: 09/08/24
Date/Time Consultation Performed: 09/08/24
Performing Provider: Linda
Reason for Consultation: ILD
Medical History
-
History of Present Illness:
Patient is an 88-year-old female with previous history of hypertension, diabetes, history of CVA, history of breast cancer, GERD, recent admission for CHF (d/c 05/31/24) presenting from [facility] via EMS for evaluation of falling, found down
at facility, unable to get up. She notes increased urinary frequency and given OP abx. UA suggestive of UTI. Repeat CXR remains similar but proBNP elevated from 2490 to 7530. O2 >90% she is placed on 5L satting 98%. Last admission there is concern
for ILD, but this is not significant based on prior CT imaging on 05/24/24. We are consulted for eval.
Past Medical History
Past Medical History: Other (see list below)
Social History
Tobacco: Non-smoker
Alcohol: None
Drug: None
Family History
Family History: Reviewed & Not Pertinent
Allergies / Home Medications
Allergies
Allergy/AdvReac Type Severity Reaction Status Date / Time
codeine Allergy Nausea Verified 05/23/24 15:35
morphine Allergy Unknown Verified 05/23/24 15:35
nitrofurantoin Allergy Hives Verified 05/23/24 15:35
[From Macrobid]
Home Medications
�Medication �Instructions �Recorded �Confirmed �Last Taken �Type
acetaminophen 325 mg tablet 650 mg (2 x 325 mg) PO Q4HPRN PRN 07/08/21 09/08/24 04/15/22 Rx
DOUGLAS, mild pain, or temp >100.4F
pantoprazole 40 mg tablet,delayed 20 mg PO DAILY Gastrointestinal 02/09/22 09/08/24 04/16/22 History
release issue
sennosides 8.6 mg tablet (senna) 8.6 mg PO BIDPRN PRN constipation 02/09/22 09/08/24 Unknown History
vitamins A,C,N-hcxy-gevdmq 4,296 1 cap PO BID Supplement 02/09/22 09/08/24 Unknown History
mcg-226 mg-90 mg capsule
(PreserVision AREDS)
alprazolam 0.5 mg tablet 0.5 mg PO BIDPRN PRN Anxiety 09/26/23 09/08/24 Unknown History
clopidogrel 75 mg tablet 75 mg PO DAILY Blood Clot 09/26/23 09/08/24 Unknown History
Prevention/Tx
amiodarone 200 mg tablet 200 mg PO DAILY #30 tabs 05/30/24 09/08/24 Unknown Rx
docusate sodium 100 mg capsule 100 mg PO BID #60 caps 05/30/24 09/08/24 Unknown Rx
furosemide 20 mg tablet 20 mg PO DAILY #30 tabs 05/30/24 09/08/24 Unknown Rx
glimepiride 2 mg tablet 2 mg PO DAILY #30 tabs 05/30/24 09/08/24 Unknown Rx
ipratropium 0.5 mg-albuterol 3 mg 3 ml inhalation R Q4HPRN PRN sob 05/30/24 09/08/24 Unknown Rx
(2.5 mg base)/3 mL nebulization or wheezing #90 mL
soln
metoprolol succinate 25 mg 12.5 mg (1/2 x 25 mg) PO DAILY #30 05/30/24 09/08/24 Unknown Rx
tablet,extended release 24 hr tabs
benzonatate 100 mg capsule 100 mg PO TIDPRN PRN cough #10 caps 05/31/24 09/08/24 Unknown Rx
guaifenesin 600 mg tablet, 1,200 mg (2 x 600 mg) PO Q12 #60 05/31/24 09/08/24 Unknown Rx
extended release 12 hr tabs
magnesium oxide 500 mg PO BID #60 tabs 05/31/24 09/08/24 Unknown Rx
apixaban 5 mg tablet 5 mg PO BID 09/08/24 09/08/24 Unknown History
methenamine hippurate 1 gram tablet 1 g PO BID 09/08/24 09/08/24 Unknown History
Review of Systems
-
History Source: Patient
All other systems: Negative unless noted
Vitals / Labs / Diagnostic Testing
Vital Signs
Temp Pulse Resp BP Pulse Ox
98.2 F 71 19 102/89 97
09/08/24 04:09 09/08/24 05:45 09/08/24 05:45 09/08/24 02:20 09/08/24 07:42
Lab Data
09/08/24 03:56
Microbiology
09/07/24 23:02 Nasal Swab Influenza Types A & B (MARTIN) - Final
Negative for Influenza A & B, NAAT
Negative results must be combined with clinical observations
and patient history.
Nucleic Acid Amplification test (NAAT)performed on the
[employer] platform.
Diagnostic Testing:
Physical Exam
-
HEENT: Normocephalic, Anicteric and Moist Mucous Membranes
Cardiovascular: S1/S2 and Regular Rhythm
Respiratory: Rales and Non-Labored Respirations
GI: Soft, Non Distended and Non Tender
Neurology: Awake, Alert, Oriented and No Motor Deficits
Skin: Warm, Dry and Good Color
General: Comfortable and Other (NAD)
Assessment
-
Patient is an 88-year-old female with previous history of hypertension, diabetes, history of CVA, history of breast cancer, GERD, recent admission for CHF (d/c 05/31/24) presenting from [facility] via EMS for evaluation of falling, found down
at facility, unable to get up. She notes increased urinary frequency and given OP abx. UA suggestive of UTI. Repeat CXR remains similar but proBNP elevated from 2490 to 7530. O2 >90% she is placed on 5L satting 98%. We are consulted for eval.
Acute hypercarbic respiratory failure
Acute on chronic CHF exacerbation-reduced EF
SOB
Hyperglycemia
Hyponatremia
Mild anemia-hemoglobin 10
Lactic acidosis
Conditions present prior to admission:
Possible underlying chronic ILD-suspect very mild per CT 05/15/2024
HTN
NIDDM
Breast Ca with Radiation Therapy s/p Left Mastectomy
GERD/Hiatal Hernia
Carotid stenosis, right s/p stent
History of seizures
Hypercholesterolemia
History of stroke 2020
RLS
UTIs
Hysterectomy
History of bowel resection
Back surgery
Iron Deficiency
Congenital malformation of esophagus
Postmenopausal atrophic vaginitis
Gait difficulty
Dysphagia
Former smoker
Moderate aortic stenosis
Diastolic dysfunction
Reduced EF-40%-was 60%
Mild bronchiectasis
Plan
Recent respiratory decompensation likely due to fluid overload/CHF and less likely due to mild ILD
She is placed on 5L NC, satting 97%-- wean as tolerated
Wean as tolerated
Multifactorial SOB is noted
May benefit from SNF placement
Home O2 eval
ILD noted on prior imaging--this is not consistent with UIP pattern (no significant honeycombing, some traction bronchiectasis) -- IPF diagnosis on her record is incorrect
Prior history of lung disease is not noted
No prior known history of lung disease, nonsmoker. Trivial use socially in her youth for a total of 5 years
COPD history in her father who was a smoker
Denies exposure history
No indication for steroids from our perspective
CXR showing interstitial edema pattern w/effusion, proBNP increased >7000, most likely AECHF
Cards eval, would benefit from more diuresis
UTI noted, likely decreased UO and AECHF from infection
On IV abx now
Echocardiogram 05/15/2024-EF 40-45%, stage II diastolic dysfunction, mild mitral regurgitation, moderate aortic stenosis
Atrial fibrillation rate control
Now on amiodarone 200 mg daily-monitor for toxicity
Eliquis continues
Aspiration precautions per protocol
Speech therapy evaluation 05/14/2014 noted-recommending video swallow, regular diet thin liquids and consider GI consultation
Outpatient pulmonary [id number] need PFTs especially in light of amiodarone load and maintenance going forward
Would repeat CT again as OP once CHF treated
DVT prophylaxis-on Eliquis/resume
Nutrition
Aspiration precautions
PT/OT
We will follow
Diagnostic Data
CXR 09/07/24-Mild to moderate diffuse pulmonary interstitial edema. Small left pleural effusion.
Chest X-Ray: 05/14/24- Suspect diffuse interstitial pneumonitis and component of pulmonary vascular congestion. Cannot rule out superimposed left basilar pneumonia and/or underlying chronic interstitial changes.
09/26/23- No acute disease of the chest. Large hiatal hernia. Enlarged.
CT chest 05/15/2024-mild reticular interstitial thickening at the lung bases with mild basilar bronchiectasis suggesting mild interstitial fibrosis, superimposed interstitial pneumonitis suspected with small bilateral pleural effusions and severe
coronary artery calcifications and large hiatal hernia
Echo: 04/23/22- 1. Small left ventricle with moderate left ventricular hypertrophy and preserved systolic function, EF 60-65%
2. Thickened mitral leaflets, mitral annular calcification, trace mitral regurgitation, and left atrial dilatation
3. Mild aortic stenosis, peak/mean gradient 28/15 mmHg, aortic valve area 1.5 cm2
4. Normal right heart with mild pulm hypertension, 36 mmHg systolic
5. Small patent foramen ovale
Echocardiogram 05/15/2024-EF 40-45%, stage II diastolic dysfunction, mild mitral regurgitation, moderate aortic stenosis
-----
Total time spent on this encounter __75__ includes review of history, physical exam, medications, laboratory data, personal review of imaging, extensive review of outpatient records, discussion with care team and respiratory therapy.
[2024-09-08 10:49] LABS: Troponin I 0.038 ng/ml
[2024-09-08] MEDS: ELIQUIS 5 MG PO ×2 (10:54→19:24)
[2024-09-08] MEDS: PLAVIX 75 MG PO (10:54)
--- NOTE | 2024-09-08 11:05 | PTCARENOTE ---
Head CT results back, d/w bina Khalil to administer Plavix and Eliquis. See MAR.
[2024-09-08] MEDS: DUONEB 3 ML INH ×3 (11:51→19:46)
[2024-09-08 12:17] LABS: Glucose - Point of Care 256 mg/dl (70-99)
[2024-09-08] MEDS: XANAX 0.5 MG PO ×2 (12:29→20:43)
[2024-09-08 12:34] LABS: Blood Urea Nitrogen 29 mg/dl (7-17); Calcium 8.9 mg/dl (8.4-10.2); Carbon Dioxide 21 mmol/L (22-30); Chloride 94 mmol/L (98-107); Glucose 280 mg/dl (70-99); Potassium 5.2 mmol/L (3.5-5.1); Sodium 128 mmol/L (135-145); eGFR > 60.00
--- NOTE | 2024-09-08 12:45 | CON.CAR ---
Addendum entered and electronically signed by Deana Funes DO 09/09/24 08:40:
I saw and examined the patient.
The Refuse Collector's note was reviewed and I agree with the note.
Comment: Patient seen and examined 09/08/2024 at 12:00 PM with cardiac PA. Ms. Easley is well-known to me from the office. Alexandra is an 89-year-old female with medical history of paroxysmal atrial fibrillation on amiodarone and anticoagulated with
Eliquis, chronic HFmrEF, prior CVAs, Autonomic dysfunction/orthostasis, type 2 diabetes with neuropathy,, seizure disorder, prior breast cancer Status post left mastectomy and radiation, GERD, carotid stenosis with prior right ICA stent,
hyperlipidemia, hyponatremia, ILD, aspiration and dysphagia. She has had 2 recent hospitalizations in April for heart failure. Her most recent one noted abnormal EKG concerning for ischemia with mildly abnormal cardiac troponins which peaked at
0.085 and ejection fraction newly reduced to 4045% with new regional wall motion abnormalities. She also was noted to have severe coronary artery calcifications on chest CT but no distinct chest discomfort. Following this hospitalization she was
arranged a PET CT Lexiscan stress test. Stress test 08/08/2024 was abnormal with a moderate partially reversible anterolateral and inferolateral as well as apical defect suggesting ischemia with an ejection fraction at rest 27% and with stress 39%.
Subsequently, I have discussed and recommended cardiac catheterization with the patient and multiple family members. She had been scheduled for a cardiac catheterization on August 29, 2024 but ultimately opted not to proceed and canceled. She
states she was concerned about staying overnight in the hospital if she did require a stent.
.
Alexandra presented to ER for evaluation after fall and ongoing weakness and dyspnea on exertion. In ER, patient noted to be in acute heart failure with proBNP 7530. Chest xray with mild-mod pulmonary edema. She required brief BiPAP. She was started
on IV lasix and weight down slightly overnight. Weight on admission up approximately 13 lbs from dry weight. Patient has family members who she is living with who have norovirus however patient is not exhibiting any symptoms. She is being treated
for UTI diagnosed as an outpatient.
General: Awake alert and oriented sitting out of bed to chair with nasal cannula O2 at 4 L. Emotional at times breaking out into tears
Heart: Regular, positive S1/S2, 2/6 SM
Lungs: Bronchovesicular breath sounds with crackles midway up bilaterally and end expiratory wheezes
Abd: Positive BS, NT/ND, neg rebound/rigidity/guarding
Ext: trace edema
Neuro: nonfocal
Plan:
Medically complex 89-year-old female presenting with weakness following a fall at home
-Infection workup ongoing as multiple family members have norovirus at home. Fortunately patient herself is not exhibiting any symptoms.
-She was diagnosed with a UTI as an outpatient on antibiotics
-Blood/urine cultures NGTD
-Covid negative/flue negative
-Suspect weakness/deconditioning is multifactorial with ongoing heart failure and likely significant coronary artery disease/ischemia
Chronic decompensated HFmrEF EF 40-45%
-Continue IV Lasix and O2 supplementation
-Follow creatinine and electrolytes. Replete for K greater than 4, mag greater than 2
-Repeat echocardiogram yesterday shows again LV dysfunction with EF estimated 40-45% with anterior, apical, and inferolateral and inferior wall motion abnormalities suggesting ischemic disease. She also has mild mitral stenosis with mean gradient 3
mmHg and mild mitral regurgitation. She has moderate to severe aortic stenosis with peak/mean gradients of 57/32 mmHg and mild to moderate tricuspid regurgitation with estimated pulmonary artery pressure of 49 mmHg assuming a right atrial pressure
of 10mmHg.
-Attempt to optimize goal-directed medical therapy and maintain sinus rhythm. Will also readdress proceeding with left heart catheterization. We may be limited by history of autonomic dysfunction/orthostatic hypotension.
Severe coronary calcifications on CT chest, abnormal EKG and outpatient abnormal stress test concerning for ischemia with newly reduced ejection fraction and regional wall motions on echocardiograms both in April and today
-Troponins are mildly elevated but fortunately trending down. Troponin elevation noted, peaking at 0.049
-Continue Plavix and Eliquis
-She is agreeable to cardiac catheterization. Will hopefully proceed with L/RHC next week. Woill need ot stop Eliquis for 48 hours and start IV heparin gtt without bolus and ASA 81mg daily for procedure.
-Continue Plavix
-Continue newly started statin (she had previously self discontinued but per outpatient conversation was agreeable)- Atorvastatin 20mg daily
History of paroxysmal atrial fibrillation maintaining sinus rhythm on amiodarone
- Continue amiodarone 200mg daily.
-Continue Toprol 12.5mg daily BP stable
-Continue Eliquis
Addendum entered and electronically signed by Lorene aPk PA-C 09/08/24 16:29:
Spoke with daughter Parvin on the phone for 6 minutes 30 seconds. Gave update from cardiac standpoint and reviewed plan to diurese through the weekend and likely move forward with [facility] next week. All questions answered. She will speak to her
daughter Candi and stated her daughter will likely want to be involved in ongoing updates once closer to cath. She was appreciative of update.
Original Note:
Consultation
Consultation Request
Date/Time Consultation Requested: 09/08/2024
Date/Time Consultation Performed: 09/08/2024
Requesting Provider: Dr. Cochran
Performing Provider: Lorene Pak PA-C for Dr. Funes
Reason for Consultation: CHF
Medical History
-
History of Present Illness:
HPI: Alexandra is an 89-year-old female with medical history of paroxysmal atrial fibrillation, chronic HFmrEF, abnormal stress test, prior CVAs, orthostasis, type 2 diabetes, seizure disorder, prior breast cancer, GERD, carotid stenosis with prior
stenting, hyperlipidemia, and dysphagia. Presented to ER for evaluation after fall. When she was recently seen by cardiology, she was arranged for PET/CT stress test for evaluation as she had new A-fib and cardiomyopathy with ongoing weakness
and dyspnea on exertion. PET/CT stress test was abnormal and she was arranged for cardiac catheterization 08/29/2024, however patient canceled the procedure the night before, as she states she was concerned about staying overnight in the hospital if
she did require a stent. She continued to have weakness and SOB and last evening her legs gave out and she was unable to get up. Family was also unable to help her up and 911 called. She was hypoxic when EMS arrived and placed on BiPAP. In ER,
patient noted to be in acute heart failure with proBNP 7530. Chest xray with mild-mod pulmonary edema. She was started on IV lasix and weight down slightly overnight. Weight on admission up approximately 13 lbs from dry weight.
PMH:
Paroxysmal atrial fibrillation
Chronic HFmrEF
Abnormal stress test
h/o multiple ischemic strokes which have been felt likely to represent small vessel disease and atherosclerosis
Autonomic dysfunction/hypotension/orthostasis treated with midodrine as needed
Type 2 diabetes with diabetic neuropathy
History of seizure disorder
Breast Ca with Radiation Therapy s/p Left Mastectomy
GERD/Hiatal Hernia
Carotid stenosis, right s/p stent
Hypercholesterolemia
RLS
UTIs
Hysterectomy
History of bowel resection
Back surgery
Iron Deficiency
Congenital malformation of esophagus
Postmenopausal atrophic vaginitis
Gait difficulty
Dysphagia
Former smoker
Past Medical History
Past Medical History: Other (in HPI)
Social History
Tobacco: Non-Smoker
Alcohol: None
Drug: None
Personal:
Living: Assisted Living ([facility])
Employment: Retired
Family History
Family History: Reviewed & Not Pertinent
Allergies / Home Medications
Allergy/AdvReac Type Severity Reaction Status Date / Time
codeine Allergy Nausea Verified 05/23/24 15:35
morphine Allergy Unknown Verified 05/23/24 15:35
nitrofurantoin Allergy Hives Verified 05/23/24 15:35
[From Macrobid]
�Medication �Instructions �Recorded �Confirmed �Type
acetaminophen 325 mg tablet 650 mg (2 x 325 mg) PO Q4HPRN PRN 07/08/21 09/08/24 Rx
DOUGLAS, mild pain, or temp >100.4F
pantoprazole 40 mg tablet,delayed 20 mg PO DAILY Gastrointestinal 02/09/22 09/08/24 History
release issue
sennosides 8.6 mg tablet (senna) 8.6 mg PO BIDPRN PRN constipation 02/09/22 09/08/24 History
vitamins A,C,O-rbcs-vroyoh 4,296 1 cap PO BID Supplement 02/09/22 09/08/24 History
mcg-226 mg-90 mg capsule
(PreserVision AREDS)
alprazolam 0.5 mg tablet 0.5 mg PO BIDPRN PRN Anxiety 09/26/23 09/08/24 History
clopidogrel 75 mg tablet 75 mg PO DAILY Blood Clot 09/26/23 09/08/24 History
Prevention/Tx
amiodarone 200 mg tablet 200 mg PO DAILY #30 tabs 05/30/24 09/08/24 Rx
docusate sodium 100 mg capsule 100 mg PO BID #60 caps 05/30/24 09/08/24 Rx
furosemide 20 mg tablet 20 mg PO DAILY #30 tabs 05/30/24 09/08/24 Rx
glimepiride 2 mg tablet 2 mg PO DAILY #30 tabs 05/30/24 09/08/24 Rx
ipratropium 0.5 mg-albuterol 3 mg 3 ml inhalation R Q4HPRN PRN sob 05/30/24 09/08/24 Rx
(2.5 mg base)/3 mL nebulization or wheezing #90 mL
soln
metoprolol succinate 25 mg 12.5 mg (1/2 x 25 mg) PO DAILY #30 05/30/24 09/08/24 Rx
tablet,extended release 24 hr tabs
benzonatate 100 mg capsule 100 mg PO TIDPRN PRN cough #10 caps 05/31/24 09/08/24 Rx
guaifenesin 600 mg tablet, 1,200 mg (2 x 600 mg) PO Q12 #60 05/31/24 09/08/24 Rx
extended release 12 hr tabs
magnesium oxide 500 mg PO BID #60 tabs 05/31/24 09/08/24 Rx
apixaban 5 mg tablet 5 mg PO BID 09/08/24 09/08/24 History
methenamine hippurate 1 gram tablet 1 g PO BID 09/08/24 09/08/24 History
Review of Systems
-
History Source: Patient
All other systems: Negative unless noted
Physical Exam
Vital Signs
Temp Pulse Resp BP Pulse Ox
97.9 F 65 16 133/52 99
09/08/24 07:15 09/08/24 11:55 09/08/24 11:55 09/08/24 10:20 09/08/24 11:55
Lab Results
09/08/24 03:56
Troponin I 0.038 ng/ml H* 09/08/24 09:44
Pbc-A-Isbspgxkbva Pept 7530 pg/ml 09/07/24 23:02
Physical Exam
General: Well Developed, Well Nourished and No Apparent Distress
HEENT: Normocephalic, Anicteric and Moist Mucous Membranes
Respiratory: Crackles and Non Labored Respirations
Cardiac: S1/S2 and Regular Rhythm
Musculoskeletal: No Clubbing, No Cyanosis and No Edema
Skin: Warm and Dry
Neuro: AO x 3 and Nonfocal/Grossly Intact
Impression / Plan
-
PCP: Dr. Nuzhat Jorge
Retail Maintenance Technician: Dr. Funes
Impression:
Presented with SOB, weakness
Acute on chronic HFmrEF
UTI
Elevated troponin, suspect nonischemic myocardial injury
Paroxysmal atrial fibrillation
Abnormal stress test
h/o multiple ischemic strokes which have been felt likely to represent small vessel disease and atherosclerosis
Autonomic dysfunction/hypotension/orthostasis treated with midodrine as needed
Type 2 diabetes with diabetic neuropathy
History of seizure disorder
Breast Ca with Radiation Therapy s/p Left Mastectomy
GERD/Hiatal Hernia
Carotid stenosis, right s/p stent
Hypercholesterolemia
RLS
UTIs
Hysterectomy
History of bowel resection
Back surgery
Iron Deficiency
Congenital malformation of esophagus
Postmenopausal atrophic vaginitis
Gait difficulty
Dysphagia
Former smoker
3 weeks of cardiac monitoring May 2021 failed to demonstrate atrial fibrillation
Echo 04/15/2022: small left ventricle with moderate left ventricular hypertrophy and ejection fraction of 60 to 65%. There is mild aortic stenosis with peak and mean gradients of 28 and 15 mmHg and calculated aortic valve area of 1.5 cm�.
Echo 05/15/2024: EF 40 to 45%, global hypokinesis, stage II diastolic dysfunction, MAC, mild MR, mild to moderate with peak/mean gradients 27/18 mmHg, KAYLEIGH 1.4 cm�, trace AR
ECHO 05/25/2024: EF 40 to 45%, apex, inferolateral, inferior and anterior perez are hypokinetic, appears stable compared to prior.
Plan:
-Presented with weakness, fall, and acute heart failure.
-Diuresing with IV lasix 40mg daily. Weight on arrival to ER up 13lbs compared to dry weight of 125lbs. Down 2lbs overnight to 136lbs.
-Creat stable at 0.8. Continue to follow daily weights, I&Os.
-Echo 04/2024 with newly reduced EF at 40-45% with mild-moderate .
-As OP had PET/CT stress test which was abnormal and had been planned for [facility] 08/29, however patient canceled last minute.
-After further discussion, patient agreeable now for [facility] this admission. Will tentatively plan for next week prior to discharge.
-Troponin elevation noted, peaking at 0.049 and trending down thereafter. Suspect nonischemic myocardial injury in the setting of acute heart failure exacerbation.
-Continues on Plavix and Eliquis.
-ECG reviewed, SR. In SR on tele. Continue amiodarone 200mg daily.
-Continue Toprol 12.5mg daily BP stable
-UA consistent w/ UTI. urine culture pending. Continue abx per primary service.
-Of note, patient's son who she was staying with recently had norovirus. patient has no GI symptoms currently.
-Flu and covid negative. Blood cultures pending.
-On 4L NC. Wean as able.
HPI: Alexandra is an 89-year-old female with medical history of paroxysmal atrial fibrillation, chronic HFmrEF, abnormal stress test, prior CVAs, orthostasis, type 2 diabetes, seizure disorder, prior breast cancer, GERD, carotid stenosis with prior
stenting, hyperlipidemia, and dysphagia. Presented to ER for evaluation after fall. When she was recently seen by cardiology, she was arranged for PET/CT stress test for evaluation as she had new A-fib and cardiomyopathy with ongoing weakness
and dyspnea on exertion. PET/CT stress test was abnormal and she was arranged for cardiac catheterization 08/29/2024, however patient canceled the procedure the night before, as she states she was concerned about staying overnight in the hospital if
she did require a stent. She continued to have weakness and SOB and last evening her legs gave out and she was unable to get up. Family was also unable to help her up and 911 called. She was hypoxic when EMS arrived and placed on BiPAP. In ER,
patient noted to be in acute heart failure with proBNP 7530. Chest xray with mild-mod pulmonary edema. She was started on IV lasix and weight down slightly overnight. Weight on admission up approximately 13 lbs from dry weight.
Data Reviewed
-
EKG: Tracing Personally Visualized and interpreted
Radiology: Report Reviewed by me
Labs: Labs Reviewed by me
Old Records: Reviewed
--- NOTE | 2024-09-08 14:19 | PTCARENOTE ---
Pt weaned to 4L NC, sats in the mid to high 90's. OOB to chair for some time with PT. Grossly incontinent of urine. Diamond care completed, purewick in place. Pt continues to be tearful and anxious. PRN Xanax administered, see MAR. This RN continues to
provided emotional support. Bed/chair alarms in place for safety. Ringing appropriately
--- NOTE | 2024-09-08 15:24 | CM ---
Patient with Hx stroke. O2 4L. Echo, CT Head, CT Chest today. Receiving IV Abx. PT recommends skilled rehab. OT recommends SNF vs HH with assist.
Met with patient briefly - she was being transferred to [facility] to go to [place].
Spoke with patient's daughter Parvin;
the patient resides with her daughter Parvin and son in law in a 2 story house with 3 [address].
She is forgetful at baseline and daughter says she has declined somewhat in the past few months.
The patient was assisted with ADLs by her daughter and more recently by her son, since the daughter had recent hip surgery.
She ambulates using her RW and does not drive.
DME - RW, SPC, shower chair, hearing aides, raised toilet seat
VN - prior [facility]
SNF - recent [facility] May 2024
Prior [facility]
Prior [facility]
PCP - Nuzhat Zhu
Pharmacy - [facility]
The patient's ex- in Jun 2024 and patient is still grieving and depressed, per daughter.
Discussed patient's current mobility as per PT/OT; daughter considering rehab however wants to wait and discuss her status with MD.
Plan follow up with patient & daughter about SNF for rehab.
[2024-09-08 16:51] LABS: Glucose - Point of Care 194 mg/dl (70-99)
[2024-09-08] MEDS: NOVOLOG FLEXPEN-LOW RESISTANCE 1 UNITS SC (17:18)
[2024-09-08 17:33] LABS: Osmolality Urine 351 mOsm/kg (300-900)
[2024-09-08 17:35] LABS: Urine Albumin Negative (Neg - Trace); Urine Bilirubin Negative (Negative); Urine Character Clear (Clear); Urine Color Yellow; Urine Glucose Negative (Negative); Urine Ketone Negative (Negative); Urine Leukocyte 2+ (Negative); Urine Nitrite Negative (Negative); Urine Occult Blood Trace (Negative); Urine Specific Gravity 1.015 (<1.030); Urine Urobilinogen Negative (Neg - 1+)
[2024-09-08 17:52] LABS: Urine Squamous Cell 0-2 /LPF (Few)
[2024-09-08 17:53] LABS: Urine White Cell 80-90 /HPF (0-5)
[2024-09-08 17:54] LABS: Urine Bacteria Few (Negative)
[2024-09-08 18:01] LABS: Urine Sodium 46 mmol/L (30-90)
[2024-09-08 19:24] LABS: Blood Urea Nitrogen 36 mg/dl (7-17); Calcium 9.3 mg/dl (8.4-10.2); Carbon Dioxide 23 mmol/L (22-30); Chloride 94 mmol/L (98-107); Glucose 216 mg/dl (70-99); Potassium 4.8 mmol/L (3.5-5.1); Sodium 129 mmol/L (135-145); eGFR > 60.00
[2024-09-08] MEDS: REQUIP 0.5 MG PO (19:54)
[2024-09-08] MEDS: MELATONIN 5 MG PO (20:43)
[2024-09-08 21:33] LABS: Glucose - Point of Care 164 mg/dl (70-99)
--- NOTE | 2024-09-08 22:20 | PTCARENOTE ---
Assumed care of patient. Patient is Aox3 but very anxious. Patient requested medication for her restless leg, notified FILLING WINDER, see MAR. Patient is NSR on monitor and on 4L NC sating at 100%. Purewick in place draining yellow urine. Patient resting in
bed with call bartlett in reach, assessment and VS as documented.
[2024-09-09] VITALS (15 sets, daily range): BP systolic 95–132; BP diastolic 15–70
[2024-09-09 04:33] LABS: % Basophils 0.2 % (0-2); % Eosinophils 0.9 % (0-6); % Immature Granulocytes 0.5 % (0-0.5); % Lymphocytes 18.8 % (20.5-51.1); % Neutrophils 68.6 % (42.2-75.2); Absolute Eosinophils 0.1 10^3/uL (0-0.7); Absolute Lymphocytes 1.3 10^3/uL (1.2-3.4); Absolute Monocytes 0.7 10^3/uL (0.1-0.6); Absolute Neutrophils 4.6 10^3/uL (1.4-6.5); Hematocrit 29.1 % (37.0-47.0); Hemoglobin 9.2 g/dL (12.0-16.0); Mean Corp Hgb Conc. 31.6 g/dL (33.0-37.0); Mean Corpuscular Hgb 29.1 pg (27.0-31.0); Mean Corpuscular Volume 92.1 fL (81.0-99.0); Mean Platelet Volume 9.8 fL (7.4-10.4); Nucleated Red Blood Cells % 0 %; Platelet Count 195 10^3/uL (130-400); Red Blood Cell Count 3.16 10^6/uL (4.20-5.40); Red Cell Dist. Width 15.3 % (11.5-14.5); White Blood Cell Count 6.7 10^3/uL (4.8-10.8)
[2024-09-09 05:13] LABS: ALT (SGPT) 16 U/L (0-35); AST (SGOT) 38 U/L (14-36); Albumin 3.4 g/dl (3.5-5.0); Alkaline Phosphatase 89 U/L (38-126); Blood Urea Nitrogen 39 mg/dl (7-17); Calcium 8.8 mg/dl (8.4-10.2); Carbon Dioxide 23 mmol/L (22-30); Chloride 99 mmol/L (98-107); Glucose 137 mg/dl (70-99); Potassium 5.2 mmol/L (3.5-5.1); Sodium 131 mmol/L (135-145); Total Bilirubin 0.3 mg/dl (0.2-1.3); Total Protein 5.9 g/dl (6.3-8.2); eGFR > 60.00
[2024-09-09] MEDS: DUONEB 3 ML INH ×4 (08:02→19:22)
[2024-09-09 08:04] LABS: Glucose - Point of Care 144 mg/dl (70-99)
[2024-09-09] MEDS: NOVOLOG FLEXPEN-LOW RESISTANCE SC (08:22)
--- NOTE | 2024-09-09 08:30 | W.PN.HOSP.TC ---
Today's Communication/Plan
-
cont diuresis and Ceftriaxone
Assessment / Plan
Assessment / Plan
89yo F with pulmonary fibrosis, CHF, DM, CVA, CAD, recurrent UTI came after she fell at home since she was not steady on her feet. Found UTI, CHF exacerbation, that confirmed on CT without radiographic signs of the pneumonia. Undergoing diuresis,
planned for H this admission by Cardio
A/P:
#Fall 2/[address] without bleeding or hematoma
PT/OT
#Acute hypoxic respiratory failure
multifactorial 2/2 CHF and cannot exclude COPD exacerbation since patient is wheezing
Acute on chronic HFrEF exacerbation
#Ischemic CM
#Paroxysmal Afib
#Non-ischemic myocardial injury
LAsix, daily weight, I&O
Telemetry
cont rate control
Cardiology consult: plan for left cardiac cath as patinent previously was recommended but declined. Now agreeable. Tentatively - on this admisison
cont to trend troponin
Repeat Echo: EF 40-45% with Inferior, inferolateral, anterior and apical hypokinesis, stage 2 diastolic dysfunction, mild MS and MR, mild pulmonary HTN with mild-moderate TR. moserate-severe
#moderate hiatal hernia
asymptomatic, but adjusted atelectasis might contribute to dyspnea. Outpatient GenSx eval
#Atelectasis
Incentive spirometry
#DISH
#Chronic T11 compression Fx
PCP follow up
Tylenol
PT
#Hyponatremia
#hyperkalemia
most likely 2/2 CHF
follow urinary studies and cont diuresis with FR
monitor BMP - mild hyperkalemia and sodium improving
#Mastoid cell opacification
no ear pain
outpatient ENT
#UTI
Rocephin, pending Ucx
Bcx NTD
#Hx of possible ILD
Pulm consult: jospehley correct Dx, no need for steroids
No signs of pneumonia on XR
#DM type 2 with neuropathy
Accuchecks, Insulin SS, DM diet
#Hx of CVA
#Carotis stenosis s/p CEA
#Anxiety d/o
cont home meds
#Mild anemia
follow CBC
outpatient w/u by PCP
DVT ppx Eliquis
DNR/DNI
I have spent at least 39min reviewing the chart, test results, communication with consultants and direct patient care
Anticipated Discharge: > 48 hours
Subjective/Interval History
-
Date of Service: September 09, 2024
Objective Data
-
Labs:
Laboratory Results
09/09/24 09/09/24
04:13 04:14
WBC 6.7
Hgb 9.2 L
Hct 29.1 L
Plt Count 195
Sodium 131 L Cancelled
Potassium 5.2 H Cancelled
Chloride 99 Cancelled
Carbon Dioxide 23 Cancelled
BUN 39 H Cancelled
Creatinine 0.8 Cancelled
Glucose 137 H Cancelled
Calcium 8.8 Cancelled
Total Bilirubin 0.3
AST 38 H
ALT 16
Alkaline Phosphatase 89
Vital Signs:
Vital Signs
Temp Pulse Resp BP Pulse Ox
97.4 F 65 16 95/50 98
09/09/24 03:00 09/09/24 08:04 09/09/24 08:04 09/09/24 06:00 09/09/24 08:04
I&O
09/08/24 09/09/24 09/10/24
06:59 06:59 06:59
Output Total 600 / 600
Balance -600 / -600
Review of Systems
-
History Source: Patient
All other systems: Reviewed and negative
Physical Exam
-
General: No Apparent Distress
HEENT: Normocephalic
Respiratory: Crackles
Cardiac: Regular Rhythm
GI: Soft, Nontender and Nondistended
Musculoskeletal: No Clubbing, No Cyanosis and No Edema
Skin: Warm
Neuro: Awake, Alert, Oriented and AO x 3
Psych: Calm
[2024-09-09] MEDS: ROCEPHIN 1000 MG IV (08:34)
[2024-09-09] MEDS: PACERONE 200 MG PO (08:37)
[2024-09-09] MEDS: OCUVITE SOFTGEL 1 CAP PO ×2 (08:37→19:57)
[2024-09-09] MEDS: ELIQUIS 5 MG PO ×2 (08:37→19:57)
[2024-09-09] MEDS: PLAVIX 75 MG PO (08:37)
[2024-09-09] MEDS: MUCINEX 1200 MG PO ×2 (08:37→19:57)
[2024-09-09] MEDS: TOPROL XL 12.5 MG PO (08:37)
[2024-09-09] MEDS: STERILE WATER FOR INJECTION 10 ML IV (08:51)
[2024-09-09] MEDS: PROTONIX PO (08:52)
[2024-09-09] MEDS: LASIX 40 MG IV (08:52)
--- NOTE | 2024-09-09 10:01 | W.PN.CARDCBS ---
Today's Communication / Plan
-
Continue IV diuresis
Antibiotic therapy per primary service
Continue Plavix, Eliquis, Amio, Toprol-XL
Plan for ischemic evaluation this week when stable from infection and volume status standpoint
Impression / Plan
-
PCP: Dr. Nuzhat Jorge
[facility]: Dr. Funes
Impression:
Presented with SOB, weakness
� Productive cough
Acute on chronic HFmrEF
UTI
Elevated troponin, suspect nonischemic myocardial injury
Paroxysmal atrial fibrillation
Abnormal stress test
h/o multiple ischemic strokes which have been felt likely to represent small vessel disease and atherosclerosis
Autonomic dysfunction/hypotension/orthostasis treated with midodrine as needed
Type 2 diabetes with diabetic neuropathy
History of seizure disorder
Breast Ca with Radiation Therapy s/p Left Mastectomy
GERD/Hiatal Hernia
Carotid stenosis, right s/p stent
Hypercholesterolemia
RLS
UTIs
Hysterectomy
History of bowel resection
Back surgery
Iron Deficiency
Congenital malformation of esophagus
Postmenopausal atrophic vaginitis
Gait difficulty
Dysphagia
Former smoker
3 weeks of cardiac monitoring May 2021 failed to demonstrate atrial fibrillation
Echo 04/15/2022: small left ventricle with moderate left ventricular hypertrophy and ejection fraction of 60 to 65%. There is mild aortic stenosis with peak and mean gradients of 28 and 15 mmHg and calculated aortic valve area of 1.5 cm�.
Echo 05/15/2024: EF 40 to 45%, global hypokinesis, stage II diastolic dysfunction, MAC, mild MR, mild to moderate with peak/mean gradients 27/18 mmHg, KAYLEIGH 1.4 cm�, trace AR
ECHO 05/25/2024: EF 40 to 45%, apex, inferolateral, inferior and anterior perez are hypokinetic, appears stable compared to prior.
Echo 09/08/2024: EF 40-45%, inferior, inferolateral, anterior, and apical hypokinesis. Mild MS, MAC, mild MR, moderate to severe AAS (57/32 mmHg), mild to moderate TR, mild pulmonary hypertension PASP 43 mmHg
Plan:
-Presented with weakness, fall, and acute heart failure.
-Diuresing with IV lasix 40mg daily. Weight on arrival to ER up 13lbs compared to dry weight of 125lbs. Down 2lbs overnight to 136lbs.
-Creat stable at 0.8. Continue to follow daily weights, I&Os.
-Echo 04/2024 with newly reduced EF at 40-45% with mild-moderate .
-As OP had PET/CT stress test which was abnormal and had been planned for [facility] 08/29, however patient canceled last minute.
-After further discussion, patient agreeable now for [facility] this admission. Will tentatively plan for next week prior to discharge.
-Troponin elevation noted, peaking at 0.049 and trending down thereafter. Suspect nonischemic myocardial injury in the setting of acute heart failure exacerbation.
-Continues on Plavix and Eliquis.
-ECG reviewed, SR. In SR on tele. Continue amiodarone 200mg daily.
-Continue Toprol 12.5mg daily BP stable
-UA consistent w/ UTI. urine culture pending. Continue abx per primary service.
-Of note, patient's son who she was staying with recently had norovirus. patient has no GI symptoms currently.
-Flu and covid negative. Blood cultures pending.
-On 4L NC. Wean as able.
HPI: Alexandra is an 89-year-old female with medical history of paroxysmal atrial fibrillation, chronic HFmrEF, abnormal stress test, prior CVAs, orthostasis, type 2 diabetes, seizure disorder, prior breast cancer, GERD, carotid stenosis with prior
stenting, hyperlipidemia, and dysphagia. Presented to ER for evaluation after fall. When she was recently seen by cardiology, she was arranged for PET/CT stress test for evaluation as she had new A-fib and cardiomyopathy with ongoing weakness
and dyspnea on exertion. PET/CT stress test was abnormal and she was arranged for cardiac catheterization 08/29/2024, however patient canceled the procedure the night before, as she states she was concerned about staying overnight in the hospital if
she did require a stent. She continued to have weakness and SOB and last evening her legs gave out and she was unable to get up. Family was also unable to help her up and 911 called. She was hypoxic when EMS arrived and placed on BiPAP. In ER,
patient noted to be in acute heart failure with proBNP 7530. Chest xray with mild-mod pulmonary edema. She was started on IV lasix and weight down slightly overnight. Weight on admission up approximately 13 lbs from dry weight.
Progress Note - [facility]
Subjective
Date of Service: September 09, 2024
Patient seen and examined. No acute events overnight. Patient reporting mild shortness of breath and productive cough. Denies chest pain, palpitations, weakness. Echocardiogram performed 09/08 shows unchanged LVEF, significant valvular disease.
Telemetry shows sinus rhythm. Patient currently contact cautions due to GI illness in family. Patient undergoing treatment for UTI.
Objective
Labs:
09/09/24 04:13
09/09/24 04:14
Labs
Hgb 9.2 g/dL (12.0-16.0) L 09/09/24 04:13
Hct 29.1 % (37.0-47.0) L 09/09/24 04:13
Plt Count 195 10^3/uL (130-400) 09/09/24 04:13
Sodium Cancelled 09/09/24 04:14
Potassium Cancelled 09/09/24 04:14
BUN Cancelled 09/09/24 04:14
Creatinine Cancelled 09/09/24 04:14
Glucose Cancelled 09/09/24 04:14
Troponins
09/07/24 09/08/24 09/08/24
23:02 03:56 09:44
Troponin I 0.019 0.049 H* D 0.038 H*
09/08/24
14:39
Troponin I Cancelled
Vital Signs and I&O:
Vital Signs
Temp Pulse Resp BP Pulse Ox
97.8 F 65 16 95/50 98
09/09/24 07:10 09/09/24 08:04 09/09/24 08:04 09/09/24 06:00 09/09/24 08:04
Vital Signs
Temp Pulse Resp BP Pulse Ox
97.8 F 65 16 95/50 98
09/09/24 07:10 09/09/24 08:04 09/09/24 08:04 09/09/24 06:00 09/09/24 08:04
Intake & Output
09/07/24 09/08/24 09/09/24 09/10/24
06:59 06:59 06:59 06:59
Output Total 600 / 600
Balance -600 / -600
Physical Exam
Physical Exam
GENERAL: no acute distress
EYE: sclera anicteric
NECK: Supple, no JVD, no carotid bruit appreciated
ENT: normal nose, moist mucosal membranes, 4 L nasal cannula
CARDIAC: Regular rate and rhythm, +S1/S2, 2/6 systolic murmur; no rubs, or gallops
CHEST/PULMONARY: Normal effort, bilateral crackles, expiratory wheezing
ABDOMEN: Soft, without focal tenderness or distention
NEUROLOGICAL: Alert and oriented x3
SKIN: Warm and dry, no rash
PSYCH: Normal and appropriate interaction.
--- NOTE | 2024-09-09 12:00 | PTCARENOTE ---
Assumed care at 0700. VSS. NSR w/ 1st degree AV block on telemetry, HR 60-70s. Able to wean oxygen from 4L to 2L, patient tolerating will. Will continue to wean as able. OOB to chair for breakfast this AM for approximately 1.5 hrs. Bed alarm in
place and monitoring d/t high fall risk and forgetfulness.
[2024-09-09] MEDS: MIRALAX 17 GRAMS PO (12:18)
[2024-09-09 12:34] LABS: Glucose - Point of Care 196 mg/dl (70-99)
[2024-09-09] MEDS: NOVOLOG FLEXPEN-LOW RESISTANCE 1 UNITS SC ×2 (12:40→16:56)
--- NOTE | 2024-09-09 13:54 | W.PN.PUL3 ---
Today's Communication / Plan
-
Continue cardiac management
Eventual ischemic workup during this admission
Will discontinue nebulizers [id number] tomorrow if she continues to improve 09/10/2024. No COPD diagnosis.
No indication for steroids
Antibiotics for UTI continues
Wean down oxygen as able-currently 2 L 98%. Home oxygen assessment prior to discharge.
Assessment
-
Patient is an 88-year-old female with previous history of hypertension, diabetes, history of CVA, history of breast cancer, GERD, recent admission for CHF (d/c 05/31/24) presenting from [facility] via EMS for evaluation of falling, found down
at facility, unable to get up. She notes increased urinary frequency and given OP abx. UA suggestive of UTI. Repeat CXR remains similar but proBNP elevated from 2490 to 7530. O2 >90% she is placed on 5L satting 98%. We are consulted for eval.
Acute hypercarbic respiratory failure
Acute on chronic CHF exacerbation-reduced EF
SOB
Hyperglycemia
Hyponatremia
Mild anemia-hemoglobin 10
Lactic acidosis
Conditions present prior to admission:
Possible underlying chronic ILD-suspect very mild per CT 05/15/2024
HTN
NIDDM
Breast Ca with Radiation Therapy s/p Left Mastectomy
GERD/Hiatal Hernia
Carotid stenosis, right s/p stent
History of seizures
Hypercholesterolemia
History of stroke 2020
RLS
UTIs
Hysterectomy
History of bowel resection
Back surgery
Iron Deficiency
Congenital malformation of esophagus
Postmenopausal atrophic vaginitis
Gait difficulty
Dysphagia
Former smoker
Moderate aortic stenosis
Diastolic dysfunction
Reduced EF-40%-was 60%
Mild bronchiectasis
Plan
Recent respiratory decompensation likely due to fluid overload/CHF and less likely due to mild ILD
Elevated proBNP, reduced LVEF on echocardiogram, moderate to severe AAS.
She is placed on 5L NC, satting 97%-- wean as tolerated
Wean as tolerated
Multifactorial SOB is noted
Home O2 eval upon discharge.
ILD noted on prior imaging--this is not consistent with UIP pattern (no significant honeycombing, some traction bronchiectasis) -- IPF diagnosis on her record is incorrect.
CT scan with compressive atelectasis and large hiatal hernia.
Prior history of lung disease is not noted
No prior known history of lung disease, nonsmoker. Trivial use socially in her youth for a total of 5 years-no COPD diagnosis, no emphysema on CAT scan
Denies exposure history
No indication for steroids from our perspective-no indication for long-acting bronchodilators.
Currently on nebulizers, may use for secretion clearance. Will transition to as needed tomorrow if she continues to improve.
Suspect wheezing may be cardiac in etiology. Now resolved 09/09/2024
CXR showing interstitial edema pattern w/effusion, proBNP increased >7000, most likely AECHF
Echocardiogram 05/15/2024-EF 40-45%, stage II diastolic dysfunction, mild mitral regurgitation, moderate aortic stenosis
Atrial fibrillation rate control-on anticoagulation
Cardiology following patient.
IV diuresis
Optimize cardiac medications
Ischemic workup in the inpatient setting
UTI noted, likely decreased UO and AECHF from infection
On IV abx now-ceftriaxone per primary team.
No antibiotic requirement from the pulmonary perspective.
Aspiration precautions per protocol
Speech therapy evaluation 05/14/2014 noted-recommending video swallow, regular diet thin liquids and consider GI consultation
Outpatient pulmonary nrilzs-rj-aecv need PFTs especially in light of amiodarone load and maintenance going forward
Would repeat CT again as OP once CHF treated
DVT prophylaxis-on Eliquis/resume
Aspiration precautions
PT/OT
We will follow
Diagnostic Data
CXR 09/07/24-Mild to moderate diffuse pulmonary interstitial edema. Small left pleural effusion.
Chest X-Ray: 05/14/24- Suspect diffuse interstitial pneumonitis and component of pulmonary vascular congestion. Cannot rule out superimposed left basilar pneumonia and/or underlying chronic interstitial changes.
09/26/23- No acute disease of the chest. Large hiatal hernia. Enlarged.
CT chest 05/15/2024-mild reticular interstitial thickening at the lung bases with mild basilar bronchiectasis suggesting mild interstitial fibrosis, superimposed interstitial pneumonitis suspected with small bilateral pleural effusions and severe
coronary artery calcifications and large hiatal hernia
Echo: 04/23/22- 1. Small left ventricle with moderate left ventricular hypertrophy and preserved systolic function, EF 60-65%
2. Thickened mitral leaflets, mitral annular calcification, trace mitral regurgitation, and left atrial dilatation
3. Mild aortic stenosis, peak/mean gradient 28/15 mmHg, aortic valve area 1.5 cm2
4. Normal right heart with mild pulm hypertension, 36 mmHg systolic
5. Small patent foramen ovale
Echocardiogram 05/15/2024-EF 40-45%, stage II diastolic dysfunction, mild mitral regurgitation, moderate aortic stenosis
-----
Total time spent on this encounter __75__ includes review of history, physical exam, medications, laboratory data, personal review of imaging, extensive review of outpatient records, discussion with care team and respiratory therapy.
Subjective Data
-
Date of Service:
Date of Service: September 09, 2024
Chief Complaint: Pulmonary Follow Up (Acute hypercapnic respiratory failure.)
Review of Systems
Cardiopulmonary: Dyspnea, Cough and Sputum Production
Objective Data
Data Reviewed
Vital Signs / I&O / Oxygen:
Vital Signs
Temp Pulse Resp BP Pulse Ox
97.7 F 64 16 108/47 98
09/09/24 12:25 09/09/24 11:45 09/09/24 11:45 09/09/24 10:00 09/09/24 11:59
Intake and Output
09/08/24 09/09/24 09/10/24
06:59 06:59 06:59
Output Total 600 / 600 1200 / 1200
Balance -600 / -600 -1200 / -1200
SaO2 98
Nasal Cannula flow liters per 2
minute
Physical Exam
General: Comfortable
HEENT: Normocephalic
Cardiovascular: S1-S2
Respiratory: Clear and Non-Labored Respirations
GI: Soft and Non Distended
Neurology: Awake
Skin: Warm
Labs/Micro/Reports
Lab Data
09/09/24 04:13
09/09/24 04:14
Microbiology
09/08/24 17:20 Urine Urine Culture - Final
NO GROWTH
09/07/24 23:47 Urine Urine Culture - Preliminary
Gram negative bacilli
09/08/24 03:56 Blood/Venous Blood Culture - Preliminary
No Growth in 24 hours- Final report to follow
09/08/24 03:56 Blood/Venous Blood Culture - Preliminary
No Growth in 24 hours- Final report to follow
09/07/24 23:05 Blood/Venous Blood Culture - Preliminary
No Growth in 24 hours- Final report to follow
09/07/24 23:05 Blood/Venous Blood Culture - Preliminary
No Growth in 24 hours- Final report to follow
09/07/24 23:02 Nasal Swab Influenza Types A & B (MARTIN) - Final
Negative for Influenza A & B, NAAT
Negative results must be combined with clinical observations
and patient history.
Nucleic Acid Amplification test (NAAT)performed on the
[employer] NOW platform.
[2024-09-09] MEDS: XANAX 0.5 MG PO ×2 (13:56→20:44)
--- NOTE | 2024-09-09 14:01 | PTCARENOTE ---
SaO2 stable at rest on 1L. Patient requesting to ambulate, this RN helped walk within room, around the bed. SaO2 dropped to 84% on 1L while ambulating. Assisted back into chair, recovered without difficulty. Remains on 1L, SaO2 currently 98% at rest.
--- NOTE | 2024-09-09 16:11 | CHAP ---
Visited Alexandra at 11:30am. It was difficult for her to talk at that point, but she welcomed prayer. Emotional and spiritual support provided, with awareness that Alexandra is grieving the loss of her . Assurance given of our on-going
availability.
[2024-09-09 16:48] LABS: Glucose - Point of Care 185 mg/dl (70-99)
[2024-09-09] MEDS: LIPITOR 20 MG PO (16:56)
--- NOTE | 2024-09-09 18:00 | PTCARENOTE ---
Report given to Ana M Ott RN. Patient transported by PCT w/ all belongings.
--- NOTE | 2024-09-09 18:38 | PTCARENOTE ---
Rec'd pt from IMU. oriented to room. Tele pack #40 placed on pt. Pt on 1L02. Does get JEAN BAPTISTE when ambulating from the wheelchair. Pt is very anxious. she did receive Xanax at 2pm in IMU. Denies pain.
[2024-09-09] MEDS: REQUIP 0.5 MG PO (20:45)
[2024-09-09] MEDS: MELATONIN 5 MG PO (20:45)
[2024-09-09 21:29] LABS: Glucose - Point of Care 203 mg/dl (70-99)
[2024-09-10 03:47] VITALS: BP 124/77
[2024-09-10 06:28] LABS: % Basophils 0.7 % (0-2); % Eosinophils 2.8 % (0-6); % Immature Granulocytes 0.6 % (0-0.5); % Lymphocytes 16.9 % (20.5-51.1); % Monocytes 12.4 % (1.7-9.3); % Neutrophils 66.6 % (42.2-75.2); Absolute Basophils 0.1 10^3/uL (0-0.2); Absolute Eosinophils 0.2 10^3/uL (0-0.7); Absolute Lymphocytes 1.2 10^3/uL (1.2-3.4); Absolute Monocytes 0.9 10^3/uL (0.1-0.6); Absolute Neutrophils 4.8 10^3/uL (1.4-6.5); Hematocrit 31.1 % (37.0-47.0); Hemoglobin 9.7 g/dL (12.0-16.0); Mean Corp Hgb Conc. 31.2 g/dL (33.0-37.0); Mean Corpuscular Hgb 28.8 pg (27.0-31.0); Mean Corpuscular Volume 92.3 fL (81.0-99.0); Mean Platelet Volume 10.3 fL (7.4-10.4); Nucleated Red Blood Cells % 0 %; Platelet Count 224 10^3/uL (130-400); Red Blood Cell Count 3.37 10^6/uL (4.20-5.40); Red Cell Dist. Width 15.6 % (11.5-14.5); White Blood Cell Count 7.2 10^3/uL (4.8-10.8)
[2024-09-10 07:10] LABS: ALT (SGPT) 16 U/L (0-35); AST (SGOT) 36 U/L (14-36); Albumin 3.8 g/dl (3.5-5.0); Alkaline Phosphatase 112 U/L (38-126); Blood Urea Nitrogen 38 mg/dl (7-17); Carbon Dioxide 25 mmol/L (22-30); Chloride 97 mmol/L (98-107); Glucose 151 mg/dl (70-99); Sodium 134 mmol/L (135-145); Total Bilirubin 0.2 mg/dl (0.2-1.3); Total Protein 6.4 g/dl (6.3-8.2); eGFR > 60.00
[2024-09-10 07:35] VITALS: BP 127/62
[2024-09-10 08:17] LABS: Glucose - Point of Care 164 mg/dl (70-99)
[2024-09-10] MEDS: DUONEB 3 ML INH ×2 (08:24→11:34)
[2024-09-10] MEDS: PROTONIX 20 MG PO (08:25)
[2024-09-10] MEDS: OCUVITE SOFTGEL 1 CAP PO ×2 (08:26→20:10)
[2024-09-10] MEDS: MUCINEX 1200 MG PO ×2 (08:26→20:10)
[2024-09-10] MEDS: TOPROL XL 12.5 MG PO (08:26)
[2024-09-10] MEDS: ELIQUIS 5 MG PO ×2 (08:27→20:10)
[2024-09-10] MEDS: STERILE WATER FOR INJECTION 10 ML IV (08:27)
[2024-09-10] MEDS: PACERONE 200 MG PO (08:27)
[2024-09-10] MEDS: PLAVIX 75 MG PO (08:27)
[2024-09-10] MEDS: ROCEPHIN 1000 MG IV (08:27)
[2024-09-10] MEDS: NOVOLOG FLEXPEN-LOW RESISTANCE 1 UNITS SC ×2 (08:28→12:48)
[2024-09-10] MEDS: LASIX 40 MG IV (08:33)
--- NOTE | 2024-09-10 10:47 | PTCARENOTE ---
Addendum entered by Namrata French RN 09/10/24 12:08:
at 11:10 pt felt she was having trouble breathing. she was very anxious. Pulse ox was 93%. Prn Xanax given per her request. 1L02 placed back on pt per her request as well. respiratory gave her her scheduled treatment.
Original Note:
With morning assessment pt removed oxygen, stating she didn't want to wear it anymore. She was 96% on RA. Was on the commode at the time and was very dyspnic with inspiratory wheeze. once in bed pulse ox was 93.
[2024-09-10] MEDS: XANAX 0.5 MG PO (11:09)
[2024-09-10 11:44] VITALS: BP 120/59
--- NOTE | 2024-09-10 12:03 | W.PN.HOSP.TC ---
Today's Communication/Plan
-
cont Lasix, ceftriaxone, wean off O2
Assessment / Plan
Assessment / Plan
89yo F with pulmonary fibrosis, CHF, DM, CVA, CAD, recurrent UTI came after she fell at home since she was not steady on her feet. Found UTI, CHF exacerbation, that confirmed on CT without radiographic signs of the pneumonia. Undergoing diuresis,
planned for H this admission by Cardio
A/P:
#Acute hypoxic respiratory failure
multifactorial 2/2 CHF and cannot exclude COPD exacerbation since patient is wheezing
Acute on chronic HFrEF exacerbation
#Ischemic CM
#Paroxysmal Afib
#Non-ischemic myocardial injury
LAsix, daily weight, I&O
Telemetry
cont rate control
Cardiology consult: plan for left cardiac cath as patinent previously was recommended but declined. Now agreeable. Tentatively - on this admisison
cont to trend troponin
Repeat Echo: EF 40-45% with Inferior, inferolateral, anterior and apical hypokinesis, stage 2 diastolic dysfunction, mild MS and MR, mild pulmonary HTN with mild-moderate TR. moserate-severe
#UTI
Rocephin, since UCx with E.coli sensitive to cephalosporins
Bcx NTD
#Fall 2/[address] head without bleeding or hematoma
PT/OT
#moderate hiatal hernia
asymptomatic, but adjusted atelectasis might contribute to dyspnea. Outpatient GenSx eval
#Atelectasis
Incentive spirometry
#DISH
#Chronic T11 compression Fx
PCP follow up
Tylenol
PT
#Hyponatremia
#hyperkalemia
most likely 2/2 CHF
follow urinary studies and cont diuresis with FR
monitor BMP - mild hyperkalemia and sodium improving
#Mastoid cell opacification
no ear pain
outpatient ENT
#Hx of possible ILD
Pulm consult: josephley correct Dx, no need for steroids
No signs of pneumonia on XR
#DM type 2 with neuropathy
Accuchecks, Insulin SS, DM diet
#Hx of CVA
#Carotis stenosis s/p CEA
#Anxiety d/o
cont home meds
#Mild anemia
follow CBC
outpatient w/u by PCP
DVT ppx Eliquis
DNR/DNI
I have spent at least 39min reviewing the chart, test results, communication with consultants and direct patient care
Anticipated Discharge: > 48 hours
Subjective/Interval History
-
Date of Service: September 10, 2024
Objective Data
-
Labs:
Laboratory Results
09/10/24
04:55
WBC 7.2
Hgb 9.7 L
Hct 31.1 L
Plt Count 224
Sodium 134 L
Potassium 5.0
Chloride 97 L
Carbon Dioxide 25
BUN 38 H
Creatinine 0.8
Glucose 151 H
Calcium 9.0
Total Bilirubin 0.2
AST 36
ALT 16
Alkaline Phosphatase 112
Vital Signs:
Vital Signs
Temp Pulse Resp BP Pulse Ox
97.5 F 77 18 120/59 94
09/10/24 11:44 09/10/24 11:44 09/10/24 11:44 09/10/24 11:44 09/10/24 11:44
I&O
09/09/24 09/10/24 09/11/24
06:59 06:59 06:59
Intake Total 720 / 720
Output Total 600 / 600 1200 / 1200
Balance -600 / -600 -480 / -480
Review of Systems
-
History Source: Patient
All other systems: Reviewed and negative
Respiratory: Reports Pleurisy
Physical Exam
-
General: Comfortable
HEENT: Normocephalic
Respiratory: Rales and Crackles
Cardiac: Regular Rhythm
GI: Soft, Nontender and Nondistended
Musculoskeletal: No Clubbing, No Cyanosis and No Edema
Neuro: Awake, Alert, Oriented and AO x 3
Psych: Calm and Apparent Dementia
[2024-09-10 12:38] LABS: Glucose - Point of Care 181 mg/dl (70-99)
--- NOTE | 2024-09-10 13:16 | W.PN.PUL3 ---
Today's Communication / Plan
-
Transition to as needed nebulizers-not bronchospastic on exam. Suspect cardiac wheezing on admission.
Diuretics
Continue cardiac management-for left heart catheterization week
Incentive spirometer
Pulmonary will continue to follow briefly
Assessment
-
Patient is an 88-year-old female with previous history of hypertension, diabetes, history of CVA, history of breast cancer, GERD, recent admission for CHF (d/c 05/31/24) presenting from [facility] via EMS for evaluation of falling, found down
at facility, unable to get up. She notes increased urinary frequency and given OP abx. UA suggestive of UTI. Repeat CXR remains similar but proBNP elevated from 2490 to 7530. O2 >90% she is placed on 5L satting 98%. We are consulted for eval.
Acute hypercarbic respiratory failure
Acute on chronic CHF exacerbation-reduced EF
SOB
Hyperglycemia
Hyponatremia
Mild anemia-hemoglobin 10
Lactic acidosis
Conditions present prior to admission:
Possible underlying chronic ILD-suspect very mild per CT 05/15/2024
HTN
NIDDM
Breast Ca with Radiation Therapy s/p Left Mastectomy
GERD/Hiatal Hernia
Carotid stenosis, right s/p stent
History of seizures
Hypercholesterolemia
History of stroke 2020
RLS
UTIs
Hysterectomy
History of bowel resection
Back surgery
Iron Deficiency
Congenital malformation of esophagus
Postmenopausal atrophic vaginitis
Gait difficulty
Dysphagia
Former smoker
Moderate aortic stenosis
Diastolic dysfunction
Reduced EF-40%-was 60%
Mild bronchiectasis
Plan
Recent respiratory decompensation likely due to fluid overload/CHF and less likely due to mild ILD
Elevated proBNP, reduced LVEF on echocardiogram, moderate to severe .
Initially on 5 L-oxygen supplementation has been weaned off. 94% on room air.
Multifactorial SOB is noted
ILD noted on prior imaging--this is not consistent with UIP pattern (no significant honeycombing, some traction bronchiectasis) -- IPF diagnosis on her record is incorrect.
CT scan with compressive atelectasis and large hiatal hernia.
Prior history of lung disease is not noted
No prior known history of lung disease, nonsmoker. Trivial use socially in her youth for a total of 5 years-no COPD diagnosis, no emphysema on CAT scan
Denies exposure history
No indication for steroids from our perspective-no indication for long-acting bronchodilators.
Currently on nebulizers, may use for secretion clearance. Will transition to as needed tomorrow if she continues to improve.
Suspect wheezing was cardiac in etiology. Now resolved 09/09/2024
CXR showing interstitial edema pattern w/effusion, proBNP increased >7000, most likely AECHF
Echocardiogram 05/15/2024-EF 40-45%, stage II diastolic dysfunction, mild mitral regurgitation, moderate aortic stenosis
Atrial fibrillation rate control-on anticoagulation
Cardiology following patient.
IV diuresis
Optimize cardiac medications
Ischemic workup in the inpatient setting-for cardiac catheterization. Tentatively this admission.
UTI noted, likely decreased UO and AECHF from infection
On IV abx now-ceftriaxone per primary team.
No antibiotic requirement from the pulmonary perspective.
Aspiration precautions per protocol
Speech therapy evaluation 05/14/2014 noted-recommending video swallow, regular diet thin liquids and consider GI consultation
Outpatient pulmonary [id number] need PFTs especially in light of amiodarone load and maintenance going forward
Would repeat CT again as OP once CHF treated
DVT prophylaxis-on Eliquis/resume
Aspiration precautions
PT/OT
We will follow
Diagnostic Data
CXR 09/07/24-Mild to moderate diffuse pulmonary interstitial edema. Small left pleural effusion.
Chest X-Ray: 05/14/24- Suspect diffuse interstitial pneumonitis and component of pulmonary vascular congestion. Cannot rule out superimposed left basilar pneumonia and/or underlying chronic interstitial changes.
09/26/23- No acute disease of the chest. Large hiatal hernia. Enlarged.
CT chest 05/15/2024-mild reticular interstitial thickening at the lung bases with mild basilar bronchiectasis suggesting mild interstitial fibrosis, superimposed interstitial pneumonitis suspected with small bilateral pleural effusions and severe
coronary artery calcifications and large hiatal hernia
Echo: 04/23/22- 1. Small left ventricle with moderate left ventricular hypertrophy and preserved systolic function, EF 60-65%
2. Thickened mitral leaflets, mitral annular calcification, trace mitral regurgitation, and left atrial dilatation
3. Mild aortic stenosis, peak/mean gradient 28/15 mmHg, aortic valve area 1.5 cm2
4. Normal right heart with mild pulm hypertension, 36 mmHg systolic
5. Small patent foramen ovale
Echocardiogram 05/15/2024-EF 40-45%, stage II diastolic dysfunction, mild mitral regurgitation, moderate aortic stenosis
-----
Subjective Data
-
Date of Service:
Date of Service: September 10, 2024
Chief Complaint: Pulmonary Follow Up (Acute hypercapnic respiratory failure.)
Subjective:
No new complaints overnight
Overall feels better since admission
Review of Systems
Cardiopulmonary: Cough (n)
GI: Abdominal Pain and Nausea
Neuro: Headache (n)
Objective Data
Data Reviewed
Vital Signs / I&O / Oxygen:
Vital Signs
Temp Pulse Resp BP Pulse Ox
97.5 F 77 18 120/59 94
09/10/24 11:44 09/10/24 11:44 09/10/24 11:44 09/10/24 11:44 09/10/24 11:44
Intake and Output
09/09/24 09/10/24 09/11/24
06:59 06:59 06:59
Intake Total 720 / 720
Output Total 600 / 600 1200 / 1200
Balance -600 / -600 -480 / -480
SaO2 94
Nasal Cannula flow liters per 1
minute
Physical Exam
General: Comfortable
HEENT: Normocephalic
Cardiovascular: S1-S2
Respiratory: Clear and Non-Labored Respirations
GI: Soft and Non Distended
Neurology: Awake
Skin: Warm
Labs/Micro/Reports
Lab Data
09/10/24 04:55
09/10/24 04:55
Microbiology
09/07/24 23:47 Urine Urine Culture - Final
Escherichia coli
09/08/24 03:56 Blood/Venous Blood Culture - Preliminary
No Growth in 48 hours- Final report to follow
09/08/24 03:56 Blood/Venous Blood Culture - Preliminary
No Growth in 48 hours- Final report to follow
09/07/24 23:05 Blood/Venous Blood Culture - Preliminary
No Growth in 48 hours- Final report to follow
09/07/24 23:05 Blood/Venous Blood Culture - Preliminary
No Growth in 48 hours- Final report to follow
09/08/24 17:20 Urine Urine Culture - Final
NO GROWTH
09/07/24 23:02 Nasal Swab Influenza Types A & B (MARTIN) - Final
Negative for Influenza A & B, NAAT
Negative results must be combined with clinical observations
and patient history.
Nucleic Acid Amplification test (NAAT)performed on the
[employer] platform.
[2024-09-10 15:32] VITALS: BP 101/58
--- NOTE | 2024-09-10 15:35 | W.PN.CARDCBS ---
Today's Communication / Plan
-
IV diuresis
PT OT, I-S
Monitor on telemetry
Antibiotic per primary service
Ischemic evaluation when euvolemic
Impression / Plan
-
PCP: Dr. Nuzhat Jorge
Lawn Sprinkler Servicer: Dr. Funes
Impression:
Presented with SOB, weakness
� Productive cough
Acute on chronic HFmrEF
UTI
Elevated troponin, suspect nonischemic myocardial injury
Paroxysmal atrial fibrillation
Abnormal stress test
h/o multiple ischemic strokes which have been felt likely to represent small vessel disease and atherosclerosis
Autonomic dysfunction/hypotension/orthostasis treated with midodrine as needed
Type 2 diabetes with diabetic neuropathy
History of seizure disorder
Breast Ca with Radiation Therapy s/p Left Mastectomy
GERD/Hiatal Hernia
Carotid stenosis, right s/p stent
Hypercholesterolemia
RLS
UTIs
Hysterectomy
History of bowel resection
Back surgery
Iron Deficiency
Congenital malformation of esophagus
Postmenopausal atrophic vaginitis
Gait difficulty
Dysphagia
Former smoker
3 weeks of cardiac monitoring May 2021 failed to demonstrate atrial fibrillation
Echo 04/15/2022: small left ventricle with moderate left ventricular hypertrophy and ejection fraction of 60 to 65%. There is mild aortic stenosis with peak and mean gradients of 28 and 15 mmHg and calculated aortic valve area of 1.5 cm�.
Echo 05/15/2024: EF 40 to 45%, global hypokinesis, stage II diastolic dysfunction, MAC, mild MR, mild to moderate with peak/mean gradients 27/18 mmHg, KAYLEIGH 1.4 cm�, trace AR
ECHO 05/25/2024: EF 40 to 45%, apex, inferolateral, inferior and anterior perez are hypokinetic, appears stable compared to prior.
Echo 09/08/2024: EF 40-45%, inferior, inferolateral, anterior, and apical hypokinesis. Mild MS, MAC, mild MR, moderate to severe AAS (57/32 mmHg), mild to moderate TR, mild pulmonary hypertension PASP 43 mmHg
Plan:
-Presented with weakness, fall, and acute heart failure.
-Diuresing with IV lasix 40mg daily. Weight on arrival to ER up 13lbs compared to dry weight of 125lbs. Down 2lbs overnight to 136lbs., continues to improve; Incomplete SALOME's
-Creat stable at 0.8. Continue to follow daily weights, I&Os.
-Echo 04/2024 with newly reduced EF at 40-45% with mild-moderate .
-As OP had PET/CT stress test which was abnormal and had been planned for [facility] 08/29, however patient canceled last minute.
-After further discussion, patient agreeable now for [facility] this admission. Will tentatively plan for next week prior to discharge.
-Troponin elevation noted, peaking at 0.049 and trending down thereafter. Suspect nonischemic myocardial injury in the setting of acute heart failure exacerbation.
-Continues on Plavix and Eliquis.
-ECG reviewed, SR. In SR on tele. Continue amiodarone 200mg daily.
-Continue Toprol 12.5mg daily BP stable
-UA consistent w/ UTI. urine culture pending. Continue abx per primary service.
-Of note, patient's son who she was staying with recently had norovirus. patient has no GI symptoms currently.
-Flu and covid negative. Blood cultures pending.
-On 4L NC. Wean as able.
HPI: Alexandra is an 89-year-old female with medical history of paroxysmal atrial fibrillation, chronic HFmrEF, abnormal stress test, prior CVAs, orthostasis, type 2 diabetes, seizure disorder, prior breast cancer, GERD, carotid stenosis with prior
stenting, hyperlipidemia, and dysphagia. Presented to ER for evaluation after fall. When she was recently seen by cardiology, she was arranged for PET/CT stress test for evaluation as she had new A-fib and cardiomyopathy with ongoing weakness
and dyspnea on exertion. PET/CT stress test was abnormal and she was arranged for cardiac catheterization 08/29/2024, however patient canceled the procedure the night before, as she states she was concerned about staying overnight in the hospital if
she did require a stent. She continued to have weakness and SOB and last evening her legs gave out and she was unable to get up. Family was also unable to help her up and 911 called. She was hypoxic when EMS arrived and placed on BiPAP. In ER,
patient noted to be in acute heart failure with proBNP 7530. Chest xray with mild-mod pulmonary edema. She was started on IV lasix and weight down slightly overnight. Weight on admission up approximately 13 lbs from dry weight.
Progress Note - La[employer] Sprink[employer] Servicer
Subjective
Date of Service: September 10, 2024
Patient seen and examined. No acute events overnight. Patient resting comfortably in chair. Patient tearful regarding current situation. Patient does note improvement in breathing however still notes cough. No lower extremity swelling. No
palpitations, significant shortness of breath, or weakness. Telemetry demonstrates sinus rhythm.
Objective
Labs:
09/10/24 04:55
09/10/24 04:55
Labs
Hgb 9.7 g/dL (12.0-16.0) L 09/10/24 04:55
Hct 31.1 % (37.0-47.0) L 09/10/24 04:55
Plt Count 224 10^3/uL (130-400) 09/10/24 04:55
Sodium 134 mmol/L (135-145) L 09/10/24 04:55
Potassium 5.0 mmol/L (3.5-5.1) 09/10/24 04:55
BUN 38 mg/dl (7-17) H 09/10/24 04:55
Creatinine 0.8 mg/dL (0.6-1.0) 09/10/24 04:55
Glucose 151 mg/dl (70-99) H 09/10/24 04:55
Troponins
09/07/24 09/08/24 09/08/24
23:02 03:56 09:44
Troponin I 0.019 0.049 H* D 0.038 H*
09/08/24
14:39
Troponin I Cancelled
Vital Signs and I&O:
Vital Signs
Temp Pulse Resp BP Pulse Ox
97.5 F 72 18 101/58 96
09/10/24 15:32 09/10/24 15:32 09/10/24 15:32 09/10/24 15:32 09/10/24 15:32
Vital Signs
Temp Pulse Resp BP Pulse Ox
97.5 F 72 18 101/58 96
09/10/24 15:32 09/10/24 15:32 09/10/24 15:32 09/10/24 15:32 09/10/24 15:32
Intake & Output
09/08/24 09/09/24 09/10/24 09/11/24
06:59 06:59 06:59 06:59
Intake Total 720 / 720
Output Total 600 / 600 1200 / 1200
Balance -600 / -600 -480 / -480
Physical Exam
Physical Exam
GENERAL: no acute distress
EYE: sclera anicteric
NECK: Supple, no JVD, no carotid bruit appreciated
ENT: normal nose, moist mucosal membranes, 4 L nasal cannula
CARDIAC: Regular rate and rhythm, +S1/S2, 2/6 systolic murmur; no rubs, or gallops
CHEST/PULMONARY: Normal effort, bilateral crackles, expiratory wheezing
ABDOMEN: Soft, without focal tenderness or distention
NEUROLOGICAL: Alert and oriented x3
SKIN: Warm and dry, no rash
PSYCH: Normal and appropriate interaction.
[2024-09-10 16:31] LABS: Glucose - Point of Care 245 mg/dl (70-99)
[2024-09-10] MEDS: REQUIP 0.5 MG PO (17:06)
[2024-09-10] MEDS: LIPITOR 20 MG PO (17:06)
[2024-09-10] MEDS: NOVOLOG FLEXPEN-LOW RESISTANCE 2 UNITS SC (17:06)
[2024-09-10 19:30] VITALS: BP 120/53
[2024-09-10] MEDS: XANAX 0.25 MG PO (20:09)
[2024-09-10] MEDS: MELATONIN 5 MG PO (20:10)
[2024-09-10 21:15] LABS: Glucose - Point of Care 150 mg/dl (70-99)
[2024-09-10 23:30] VITALS: BP 135/67
[2024-09-11 03:02] VITALS: BP 134/61
[2024-09-11 07:25] LABS: Glucose - Point of Care 178 mg/dl (70-99)
[2024-09-11] MEDS: NOVOLOG FLEXPEN-LOW RESISTANCE 1 UNITS SC ×2 (07:59→16:57)
[2024-09-11 08:00] VITALS: BP 125/69
[2024-09-11] MEDS: LASIX 40 MG IV (08:00)
[2024-09-11] MEDS: STERILE WATER FOR INJECTION 10 ML IV (08:01)
[2024-09-11] MEDS: ROCEPHIN 1000 MG IV (08:01)
[2024-09-11] MEDS: PROTONIX 20 MG PO (08:02)
[2024-09-11] MEDS: OCUVITE SOFTGEL 1 CAP PO ×2 (08:02→20:48)
[2024-09-11] MEDS: MUCINEX 1200 MG PO ×2 (08:02→20:47)
[2024-09-11] MEDS: PLAVIX 75 MG PO (08:02)
[2024-09-11] MEDS: PACERONE 200 MG PO (08:02)
[2024-09-11] MEDS: ELIQUIS 5 MG PO ×2 (08:02→20:48)
[2024-09-11] MEDS: TOPROL XL 12.5 MG PO (08:03)
--- NOTE | 2024-09-11 09:12 | W.PN.PUL.V3 ---
Today's Communication / Plan
-
Continue nebulizers
If wheezing persist despite diuresis then consider short course of steroid-i.e. prednisone 40 mg daily for 3 days
Diuresis
Wean FiO2
Assessment
-
Patient is an 88-year-old female with previous history of hypertension, diabetes, history of CVA, history of breast cancer, GERD, recent admission for CHF (d/c 05/31/24) presenting from [facility] via EMS for evaluation of falling, found down
at facility, unable to get up. She notes increased urinary frequency and given OP abx. UA suggestive of UTI. Repeat CXR remains similar but proBNP elevated from 2490 to 7530. O2 >90% she is placed on 5L satting 98%. We are consulted for eval.
Acute hypercarbic respiratory failure
Acute on chronic CHF exacerbation-reduced EF
COPD suspected with mild acute exacerbation
SOB
Hyperglycemia
Hyponatremia
Mild anemia-hemoglobin 10
Lactic acidosis
Conditions present prior to admission:
Possible underlying chronic ILD-suspect very mild per CT 05/15/2024
HTN
NIDDM
Breast Ca with Radiation Therapy s/p Left Mastectomy
GERD/Hiatal Hernia
Carotid stenosis, right s/p stent
History of seizures
Hypercholesterolemia
History of stroke 2020
RLS
UTIs
Hysterectomy
History of bowel resection
Back surgery
Iron Deficiency
Congenital malformation of esophagus
Postmenopausal atrophic vaginitis
Gait difficulty
Dysphagia
Former smoker
Moderate aortic stenosis
Diastolic dysfunction
Reduced EF-40%-was 60%
Mild bronchiectasis
Plan
Respiratory decompensation likely multifactorial including fluid overload/CHF and likely has a component of ILD as well as COPD-significant wheezing and rhonchi on exam
Supplemental oxygen as needed
Assess discharge supplemental oxygen needs
Incentive spirometry
Mucolytic's
Antitussives
Aspiration precautions
Continue nebulizers
If wheezing persist despite diuresis then consider short course of steroids
Speech therapy evaluation 05/14/2014 noted-recommending video swallow, regular diet thin liquids and consider GI consultation
ILD noted on prior imaging--this is not consistent with UIP pattern (no significant honeycombing, some traction bronchiectasis) -- IPF diagnosis on her record is incorrect.
Review cultures
Empiric antibiotics
Gentle diuresis -400 mL / 24-hour
Monitor renal function, electrolytes, intake/output, lower extremity edema and weight
Replace electrolytes as needed
Cardiology following-correspondence reviewed
Echocardiogram 05/15/2024-EF 40-45%, stage II diastolic dysfunction, mild mitral regurgitation, moderate aortic stenosis
Possible cardiac catheterization
DVT prophylaxis-on Eliquis
GI prophylaxis-on pantoprazole
Nutrition
Early mobilization
Outpatient pulmonary [id number] need PFTs especially in light of amiodarone load and maintenance going forward
Would repeat CT again as OP once CHF treated
Diagnostic Data
CXR 09/07/24-Mild to moderate diffuse pulmonary interstitial edema. Small left pleural effusion.
Chest X-Ray: 05/14/24- Suspect diffuse interstitial pneumonitis and component of pulmonary vascular congestion. Cannot rule out superimposed left basilar pneumonia and/or underlying chronic interstitial changes.
09/26/23- No acute disease of the chest. Large hiatal hernia. Enlarged.
CT chest 05/15/2024-mild reticular interstitial thickening at the lung bases with mild basilar bronchiectasis suggesting mild interstitial fibrosis, superimposed interstitial pneumonitis suspected with small bilateral pleural effusions and severe
coronary artery calcifications and large hiatal hernia
Echo: 04/23/22- 1. Small left ventricle with moderate left ventricular hypertrophy and preserved systolic function, EF 60-65%
2. Thickened mitral leaflets, mitral annular calcification, trace mitral regurgitation, and left atrial dilatation
3. Mild aortic stenosis, peak/mean gradient 28/15 mmHg, aortic valve area 1.5 cm2
4. Normal right heart with mild pulm hypertension, 36 mmHg systolic
5. Small patent foramen ovale
Echocardiogram 05/15/2024-EF 40-45%, stage II diastolic dysfunction, mild mitral regurgitation, moderate aortic stenosis
-----
Subjective Data
-
Date of Service:
Date of Service: September 11, 2024
Chief Complaint: Pulmonary Follow Up (Acute hypercapnic respiratory failure.) and Dyspnea Follow Up
Subjective:
Still with shortness of breath, some wheezing, coughing-'when would get better', no chest pain or productive cough
Review of Systems
General: Other (Per HPI)
Objective Data
Data Reviewed
Vital Signs / I&O:
Vital Signs
Temp Pulse Resp BP Pulse Ox
97.9 F 73 20 125/69 97
09/11/24 08:00 09/11/24 08:00 09/11/24 08:00 09/11/24 08:00 09/11/24 08:00
Intake and Output
09/10/24 09/11/24 09/12/24
06:59 06:59 06:59
Intake Total 720 / 720 960 / 960
Output Total 1200 / 1200 890 / 890
Balance -480 / -480 70 / 70
SaO2: 97
Nasal Cannula flow liters per minute: 1
Physical Exam
General: Respiratory Distress (n) and Comfortable
HEENT: Normocephalic
Cardiovascular: Regular Rhythm
Respiratory: Wheeze (Expiratory), Crackles (Basilar), Rhonchi ( expiratory), Non-Labored Respirations, Accessory Resp Muscle Use (n) and Stridor (n)
GI: Soft, Non Distended and Non Tender
Neurology: Awake, Alert and No Motor Deficits
Skin: Warm, Good Color, Cyanosis (n) and Jaundice (n)
Labs/Micro/Reports
Microbiology
09/08/24 03:56 Blood/Venous Blood Culture - Preliminary
No Growth in 72 hours- Final report to follow
09/08/24 03:56 Blood/Venous Blood Culture - Preliminary
No Growth in 72 hours- Final report to follow
09/07/24 23:05 Blood/Venous Blood Culture - Preliminary
No Growth in 72 hours- Final report to follow
09/07/24 23:05 Blood/Venous Blood Culture - Preliminary
No Growth in 72 hours- Final report to follow
09/07/24 23:47 Urine Urine Culture - Final
Escherichia coli
09/08/24 17:20 Urine Urine Culture - Final
NO GROWTH
[2024-09-11 09:36] LABS: % Basophils 0.7 % (0-2); % Eosinophils 4.7 % (0-6); % Immature Granulocytes 0.4 % (0-0.5); % Lymphocytes 22.1 % (20.5-51.1); % Monocytes 10.1 % (1.7-9.3); Absolute Eosinophils 0.3 10^3/uL (0-0.7); Absolute Lymphocytes 1.2 10^3/uL (1.2-3.4); Absolute Monocytes 0.6 10^3/uL (0.1-0.6); Absolute Neutrophils 3.4 10^3/uL (1.4-6.5); Hematocrit 36.4 % (37.0-47.0); Hemoglobin 11.3 g/dL (12.0-16.0); Mean Corpuscular Hgb 28.5 pg (27.0-31.0); Mean Corpuscular Volume 91.7 fL (81.0-99.0); Mean Platelet Volume 9.7 fL (7.4-10.4); Nucleated Red Blood Cells % 0 %; Platelet Count 237 10^3/uL (130-400); Red Blood Cell Count 3.97 10^6/uL (4.20-5.40); Red Cell Dist. Width 15.2 % (11.5-14.5); White Blood Cell Count 5.5 10^3/uL (4.8-10.8)
[2024-09-11 10:33] LABS: Blood Urea Nitrogen 29 mg/dl (7-17); Calcium 9.1 mg/dl (8.4-10.2); Carbon Dioxide 29 mmol/L (22-30); Chloride 93 mmol/L (98-107); Glucose 165 mg/dl (70-99); Potassium 4.4 mmol/L (3.5-5.1); Sodium 134 mmol/L (135-145); eGFR > 60.00
[2024-09-11 11:23] LABS: Glucose - Point of Care 200 mg/dl (70-99)
[2024-09-11] MEDS: NOVOLOG FLEXPEN-LOW RESISTANCE 2 UNITS SC (11:46)
[2024-09-11 12:00] VITALS: BP 124/62; BP 127/62; PULSE 71; PULSE 72; PULSE 74
--- NOTE | 2024-09-11 12:58 | W.PN.HOSP.TC ---
Today's Communication/Plan
-
Monitor vital signs see plan
Continue with diuresis
Switch antibiotics to p.o.
Assessment / Plan
Assessment / Plan
89yo F with pulmonary fibrosis, CHF, DM, CVA, CAD, recurrent UTI came after she fell at home since she was not steady on her feet. Found UTI, CHF exacerbation, that confirmed on CT without radiographic signs of the pneumonia. Undergoing diuresis,
planned for [facility] this admission by Cardio
A/P:
#Acute hypoxic respiratory failure
multifactorial 2/2 CHF and cannot exclude COPD exacerbation since patient is wheezing
Acute on chronic HFrEF exacerbation
#Ischemic CM
#Paroxysmal Afib
#Non-ischemic myocardial injury
LAsix, daily weight, I&O
cont rate control
Cardiology consult: plan for left cardiac cath as patinent previously was recommended but declined. Now agreeable. Tentatively - on this admission
Elevated troponin, suspect nonischemic myocardial injury
Repeat Echo: EF 40-45% with Inferior, inferolateral, anterior and apical hypokinesis, stage 2 diastolic dysfunction, mild MS and MR, mild pulmonary HTN with mild-moderate TR. moderate-severe
#UTI
was on rocephin, ucx grew ecoli
change abx to cefdinir to finish course
Mild hyponatremia
Monitor
#Fall 2/[address] head without bleeding or hematoma
PT/OT
#moderate hiatal hernia
asymptomatic, but adjusted atelectasis might contribute to dyspnea. Outpatient GenSx eval
#Atelectasis
Incentive spirometry
#DISH
#Chronic T11 compression Fx
PCP follow up
Tylenol
PT
#Hyponatremia
#hyperkalemia
most likely 2/2 CHF
follow urinary studies and cont diuresis with FR
monitor BMP - mild hyperkalemia and sodium improving
#Mastoid cell opacification
no ear pain
outpatient ENT
#Hx of possible ILD
Pulm consult: josephley correct Dx, no need for steroids
No signs of pneumonia on XR
#DM type 2 with neuropathy
Accuchecks, Insulin SS, DM diet
#Hx of CVA
#Carotis stenosis s/p CEA
#Anxiety d/o
cont home meds
#Mild anemia
follow CBC
outpatient w/u by PCP
DVT ppx Eliquis
DNR/DNI
General: Comfortable
HEENT: Normocephalic
Respiratory: Rales and Crackles
Cardiac: Regular Rhythm
GI: Soft, Nontender and Nondistended
Musculoskeletal: No Clubbing, No Cyanosis and No Edema
Neuro: Awake, Alert, Oriented and AO x 3
Psych: Calm and Apparent Dementia
Anticipated Discharge: > 48 hours
Subjective/Interval History
-
Date of Service: September 11, 2024
denies pain
Objective Data
-
Labs:
Laboratory Results
09/11/24
08:55
WBC 5.5
Hgb 11.3 L
Hct 36.4 L
Plt Count 237
Sodium 134 L
Potassium 4.4
Chloride 93 L
Carbon Dioxide 29
BUN 29 H
Creatinine 0.8
Glucose 165 H
Calcium 9.1
Vital Signs:
Vital Signs
Temp Pulse Resp BP Pulse Ox
98.0 F 73 20 125/69 97
09/11/24 12:00 09/11/24 08:00 09/11/24 08:00 09/11/24 08:00 09/11/24 12:00
I&O
09/10/24 09/11/24 09/12/24
06:59 06:59 06:59
Intake Total 720 / 720 960 / 960
Output Total 1200 / 1200 890 / 890
Balance -480 / -480 70 / 70
[2024-09-11] MEDS: MIRALAX 17 GRAMS PO (13:38)
[2024-09-11 16:00] VITALS: BP 108/77
--- NOTE | 2024-09-11 16:06 | W.PN.CARDCBS ---
Today's Communication / Plan
-
Continue IV lasix diuresis. Wanted to give her additional lasix tonight but she declines. Will give her lasix 60 mg IV starting tomorrow Sep 12.
Cr remains stable.
Echo Apr 2024 with newly reduced EF 40-45% and mild to mod
Outpt PET/CT stress was abnormal and she had been recommended cath but she declined. She was being considered for cath prior to d/c this admit but she again declines.
Would have to hold Xarelto prior to cath.
Cont med tx of nonMI trop peak 0.049
Cont Plavix and Eliquis.
Remains in sinus, continue amiodarone 200mg daily.
Bp stable on toprol
Pulm considering steroids. Cont pulm toilet. Wean O2 as able.
Discussed with nursing
Will update family next 24 hrs.
Impression / Plan
-
.
PCP: Dr. Nuzhat Jorge
Nuclear Medicine Supervisor: Dr. Funes
Impression:
Presented with SOB, weakness
� Productive cough
Acute on chronic HFmrEF
UTI
Elevated troponin, suspect nonischemic myocardial injury
Paroxysmal atrial fibrillation
CM EF 40-45% Apr 2024
Mild to mod
Abnormal stress test
h/o multiple ischemic strokes which have been felt likely to represent small vessel disease and atherosclerosis
Autonomic dysfunction/hypotension/orthostasis treated with midodrine as needed
Carotid stenosis, right s/p stent
Hypercholesterolemia
Type 2 diabetes with diabetic neuropathy
History of seizure disorder
Breast Ca with Radiation Therapy s/p Left Mastectomy
GERD/Hiatal Hernia
RLS
UTIs
PSH: Hysterectomy /History of bowel resection/ Back surgery
Iron Deficiency
Congenital malformation of esophagus
Gait difficulty
Dysphagia
Former smoker
3 weeks of cardiac monitoring May 2021 failed to demonstrate atrial fibrillation
Echo 04/15/2022: small left ventricle with moderate left ventricular hypertrophy and ejection fraction of 60 to 65%. There is mild aortic stenosis with peak and mean gradients of 28 and 15 mmHg and calculated aortic valve area of 1.5 cm�.
Echo 05/15/2024: EF 40 to 45%, global hypokinesis, stage II diastolic dysfunction, MAC, mild MR, mild to moderate with peak/mean gradients 27/18 mmHg, KAYLEIGH 1.4 cm�, trace AR
ECHO 05/25/2024: EF 40 to 45%, apex, inferolateral, inferior and anterior perez are hypokinetic, appears stable compared to prior.
Echo 09/08/2024: EF 40-45%, inferior, inferolateral, anterior, and apical hypokinesis. Mild MS, MAC, mild MR, moderate to severe AAS (57/32 mmHg), mild to moderate TR, mild pulmonary hypertension PASP 43 mmHg
Plan:
-Presented with weakness, fall, and acute heart failure.
Continue IV lasix diuresis. Wanted to give her additional lasix tonight but she declines. Will give her lasix 60 mg IV starting tomorrow Sep 12.
Cr remains stable.
Echo Apr 2024 with newly reduced EF 40-45% and mild to mod
Outpt PET/CT stress was abnormal and she had been recommended cath but she declined. She was being considered for cath prior to d/c this admit but she again declines.
Would have to hold Xarelto prior to cath.
Cont med tx of nonMI trop peak 0.049
Cont Plavix and Eliquis.
Remains in sinus, continue amiodarone 200mg daily.
Bp stable on toprol
Pulm considering steroids. Cont pulm toilet. Wean O2 as able.
Discussed with nursing
Will update family next 24 hrs.
HPI: Alexandra is an 89-year-old female with medical history of paroxysmal atrial fibrillation, chronic HFmrEF, abnormal stress test, prior CVAs, orthostasis, type 2 diabetes, seizure disorder, prior breast cancer, GERD, carotid stenosis with prior
stenting, hyperlipidemia, and dysphagia. Presented to ER for evaluation after fall. When she was recently seen by cardiology, she was arranged for PET/CT stress test for evaluation as she had new A-fib and cardiomyopathy with ongoing weakness
and dyspnea on exertion. PET/CT stress test was abnormal and she was arranged for cardiac catheterization 08/29/2024, however patient canceled the procedure the night before, as she states she was concerned about staying overnight in the hospital if
she did require a stent. She continued to have weakness and SOB and last evening her legs gave out and she was unable to get up. Family was also unable to help her up and 911 called. She was hypoxic when EMS arrived and placed on BiPAP. In ER,
patient noted to be in acute heart failure with proBNP 7530. Chest xray with mild-mod pulmonary edema. She was started on IV lasix and weight down slightly overnight. Weight on admission up approximately 13 lbs from dry weight.
Progress Note - Nuclear Medicine Supervisor
Subjective
Date of Service: September 11, 2024
Pt seen and examined. No chest pain. She still has cough she states.
Objective
Labs:
09/11/24 08:55
09/11/24 08:55
Labs
Hgb 11.3 g/dL (12.0-16.0) L 09/11/24 08:55
Hct 36.4 % (37.0-47.0) L 09/11/24 08:55
Plt Count 237 10^3/uL (130-400) 09/11/24 08:55
Sodium 134 mmol/L (135-145) L 09/11/24 08:55
Potassium 4.4 mmol/L (3.5-5.1) 09/11/24 08:55
BUN 29 mg/dl (7-17) H 09/11/24 08:55
Creatinine 0.8 mg/dL (0.6-1.0) 09/11/24 08:55
Glucose 165 mg/dl (70-99) H 09/11/24 08:55
Vital Signs and I&O:
Vital Signs
Temp Pulse Resp BP Pulse Ox
98.0 F 73 20 125/69 97
09/11/24 12:00 09/11/24 08:00 09/11/24 08:00 09/11/24 08:00 09/11/24 12:00
Vital Signs
Temp Pulse Resp BP Pulse Ox
98.0 F 73 20 125/69 97
09/11/24 12:00 09/11/24 08:00 09/11/24 08:00 09/11/24 08:00 09/11/24 12:00
Intake & Output
09/09/24 09/10/24 09/11/24 09/12/24
06:59 06:59 06:59 06:59
Intake Total 720 / 720 960 / 960
Output Total 600 / 600 1200 / 1200 890 / 890
Balance -600 / -600 -480 / -480 70 / 70
Physical Exam
Physical Exam
General: No acute distress, AAOX3
Neck: Negative JVD
Heart: Regular, Negative S3 positive S1/S2, Negative S4, No murmur
Lungs: CTA b/l, negative wheezes/rales/rhonchi
Abd: Positive BS, NT/ND, neg rebound/rigidity/guarding
Ext: Negative cyanosis/clubbing/edema
Neuro: nonfocal
[2024-09-11] MEDS: REQUIP 0.5 MG PO (16:56)
[2024-09-11] MEDS: LIPITOR 20 MG PO (16:56)
[2024-09-11 16:59] LABS: Glucose - Point of Care 173 mg/dl (70-99)
[2024-09-11 19:27] VITALS: BP 123/65
[2024-09-11] MEDS: MELATONIN 5 MG PO (20:48)
[2024-09-11] MEDS: TESSALON PERLES 100 MG PO (21:10)
[2024-09-11] MEDS: XANAX 0.25 MG PO (21:10)
[2024-09-11 21:44] LABS: Glucose - Point of Care 164 mg/dl (70-99)
[2024-09-11 23:30] VITALS: BP 139/65
[2024-09-12 03:40] VITALS: BP 141/69
[2024-09-12 07:00] VITALS: BP 154/80
[2024-09-12 07:31] LABS: Glucose - Point of Care 165 mg/dl (70-99)
[2024-09-12 08:10] LABS: % Basophils 0.5 % (0-2); % Eosinophils 5.4 % (0-6); % Immature Granulocytes 0.3 % (0-0.5); % Lymphocytes 26.6 % (20.5-51.1); % Monocytes 10.5 % (1.7-9.3); % Neutrophils 56.7 % (42.2-75.2); Absolute Eosinophils 0.3 10^3/uL (0-0.7); Absolute Lymphocytes 1.6 10^3/uL (1.2-3.4); Absolute Monocytes 0.6 10^3/uL (0.1-0.6); Absolute Neutrophils 3.5 10^3/uL (1.4-6.5); Hematocrit 35.5 % (37.0-47.0); Hemoglobin 11.5 g/dL (12.0-16.0); Mean Corp Hgb Conc. 32.4 g/dL (33.0-37.0); Mean Corpuscular Volume 89.4 fL (81.0-99.0); Mean Platelet Volume 9.6 fL (7.4-10.4); Nucleated Red Blood Cells % 0 %; Platelet Count 245 10^3/uL (130-400); Red Blood Cell Count 3.97 10^6/uL (4.20-5.40); Red Cell Dist. Width 14.8 % (11.5-14.5); White Blood Cell Count 6.1 10^3/uL (4.8-10.8)
[2024-09-12 08:52] LABS: Blood Urea Nitrogen 28 mg/dl (7-17); Calcium 9.3 mg/dl (8.4-10.2); Carbon Dioxide 26 mmol/L (22-30); Chloride 95 mmol/L (98-107); Glucose 165 mg/dl (70-99); Potassium 4.4 mmol/L (3.5-5.1); Sodium 132 mmol/L (135-145); eGFR > 60.00
[2024-09-12] MEDS: NOVOLOG FLEXPEN-LOW RESISTANCE 1 UNITS SC ×2 (09:25→13:05)
[2024-09-12] MEDS: LASIX 60 MG IV (09:27)
[2024-09-12] MEDS: FLUSH (NSS) 1 FLUSH IV (09:28)
[2024-09-12] MEDS: PROTONIX PO (09:31)
[2024-09-12] MEDS: MUCINEX 1200 MG PO ×2 (09:34→20:24)
[2024-09-12] MEDS: TOPROL XL 12.5 MG PO (09:40)
[2024-09-12] MEDS: OMNICEF 300 MG PO ×2 (09:41→20:24)
[2024-09-12] MEDS: PLAVIX 75 MG PO (09:41)
[2024-09-12] MEDS: OCUVITE SOFTGEL 1 CAP PO ×2 (09:41→20:24)
[2024-09-12] MEDS: PACERONE 200 MG PO (09:42)
[2024-09-12] MEDS: ELIQUIS 5 MG PO ×2 (09:42→20:25)
--- NOTE | 2024-09-12 09:50 | W.PN.PUL.V3 ---
Today's Communication / Plan
-
Wean oxygen
Gentle diuresis
Prednisone 40 mg with slow taper-i.e. 40 mg daily for 3 days, then 30 mg daily for 3 days, then 20 mg daily for 3 days and then 10 mg daily for 3 days and then discontinue
Assessment
-
Patient is an 88-year-old female with previous history of hypertension, diabetes, history of CVA, history of breast cancer, GERD, recent admission for CHF (d/c 05/31/24) presenting from [facility] via EMS for evaluation of falling, found down
at facility, unable to get up. She notes increased urinary frequency and given OP abx. UA suggestive of UTI. Repeat CXR remains similar but proBNP elevated from 2490 to 7530. O2 >90% she is placed on 5L satting 98%. We are consulted for eval.
Acute hypercarbic respiratory failure
Acute on chronic CHF exacerbation-reduced EF
COPD suspected with mild acute exacerbation
SOB
Hyperglycemia
Hyponatremia
Mild anemia-hemoglobin 10
Lactic acidosis
Conditions present prior to admission:
Possible underlying chronic ILD-suspect very mild per CT 05/15/2024
HTN
NIDDM
Breast Ca with Radiation Therapy s/p Left Mastectomy
GERD/Hiatal Hernia
Carotid stenosis, right s/p stent
History of seizures
Hypercholesterolemia
History of stroke 2020
RLS
UTIs
Hysterectomy
History of bowel resection
Back surgery
Iron Deficiency
Congenital malformation of esophagus
Postmenopausal atrophic vaginitis
Gait difficulty
Dysphagia
Former smoker
Moderate aortic stenosis
Diastolic dysfunction
Reduced EF-40%-was 60%
Mild bronchiectasis
Plan
Respiratory decompensation likely multifactorial including fluid overload/CHF and likely has a component of ILD as well as COPD-significant wheezing and rhonchi on exam
Supplemental oxygen as needed
Assess discharge supplemental oxygen needs
Incentive spirometry
Mucolytic's
Antitussives
Aspiration precautions
Continue nebulizers
Begin short course of steroids with ongoing wheezing despite diuresis
Speech therapy evaluation 05/14/2014 noted-recommending video swallow, regular diet thin liquids and consider GI consultation
ILD noted on prior imaging--this is not consistent with UIP pattern (no significant honeycombing, some traction bronchiectasis) -- IPF diagnosis on her record is incorrect.
Review cultures
Empiric antibiotics
Gentle diuresis-positive fluid balance
Monitor renal function, electrolytes, intake/output, lower extremity edema and weight
Replace electrolytes as needed
Cardiology following-correspondence reviewed
Echocardiogram 05/15/2024-EF 40-45%, stage II diastolic dysfunction, mild mitral regurgitation, moderate aortic stenosis
Possible cardiac catheterization-Patient declined
DVT prophylaxis-on Eliquis
GI prophylaxis-on pantoprazole
Nutrition
Early mobilization
Outpatient pulmonary kzdome-[id number] need PFTs especially in light of amiodarone load and maintenance going forward
Would repeat CT again as OP once CHF treated
Diagnostic Data
CXR 09/07/24-Mild to moderate diffuse pulmonary interstitial edema. Small left pleural effusion.
Chest X-Ray: 05/14/24- Suspect diffuse interstitial pneumonitis and component of pulmonary vascular congestion. Cannot rule out superimposed left basilar pneumonia and/or underlying chronic interstitial changes.
09/26/23- No acute disease of the chest. Large hiatal hernia. Enlarged.
CT chest 05/15/2024-mild reticular interstitial thickening at the lung bases with mild basilar bronchiectasis suggesting mild interstitial fibrosis, superimposed interstitial pneumonitis suspected with small bilateral pleural effusions and severe
coronary artery calcifications and large hiatal hernia
Echo: 04/23/22- 1. Small left ventricle with moderate left ventricular hypertrophy and preserved systolic function, EF 60-65%
2. Thickened mitral leaflets, mitral annular calcification, trace mitral regurgitation, and left atrial dilatation
3. Mild aortic stenosis, peak/mean gradient 28/15 mmHg, aortic valve area 1.5 cm2
4. Normal right heart with mild pulm hypertension, 36 mmHg systolic
5. Small patent foramen ovale
Echocardiogram 05/15/2024-EF 40-45%, stage II diastolic dysfunction, mild mitral regurgitation, moderate aortic stenosis
-----
Subjective Data
-
Date of Service:
Date of Service: September 12, 2024
Chief Complaint: Pulmonary Follow Up (Acute hypercapnic respiratory failure.) and Dyspnea Follow Up
Subjective:
Still with wheezing, no chest pain or abdominal pain, nonproductive cough
Review of Systems
General: Other (Per HPI)
Objective Data
Data Reviewed
Vital Signs / I&O:
Vital Signs
Temp Pulse Resp BP Pulse Ox
97.5 F 71 18 154/80 93
09/12/24 07:00 09/12/24 07:00 09/12/24 07:00 09/12/24 07:00 09/12/24 07:00
Intake and Output
09/11/24 09/12/24 09/13/24
06:59 06:59 06:59
Intake Total 960 / 960 720 / 720
Output Total 890 / 890
Balance 70 / 70 720 / 720
SaO2: 93
Nasal Cannula flow liters per minute: 1
Physical Exam
General: Respiratory Distress (n) and Comfortable
HEENT: Normocephalic
Cardiovascular: Regular Rhythm
Respiratory: Wheeze (Expiratory), Crackles (Basilar), Rhonchi ( expiratory), Non-Labored Respirations, Accessory Resp Muscle Use (n) and Stridor (n)
GI: Soft, Non Distended and Non Tender
Neurology: Awake, Alert and No Motor Deficits
Skin: Warm, Good Color, Cyanosis (n) and Jaundice (n)
Labs/Micro/Reports
Lab Data
09/12/24 07:38
09/12/24 07:38
Microbiology
09/08/24 03:56 Blood/Venous Blood Culture - Preliminary
No Growth in 4 days- Final report to follow
09/08/24 03:56 Blood/Venous Blood Culture - Preliminary
No Growth in 4 days- Final report to follow
09/07/24 23:05 Blood/Venous Blood Culture - Preliminary
No Growth in 4 days- Final report to follow
09/07/24 23:05 Blood/Venous Blood Culture - Preliminary
No Growth in 4 days- Final report to follow
09/07/24 23:47 Urine Urine Culture - Final
Escherichia coli
09/08/24 17:20 Urine Urine Culture - Final
NO GROWTH
--- NOTE | 2024-09-12 10:59 | CM ---
Chart reviewed and case picker met with patient and patient's son and daughter in law at bedside. Physical therapy are recommending skilled placement, multiple options reviewed with patient, son and daughter in law and patient has selected [facility]
Home, referral sent to [facility].
Plan; Skilled placement will await determination from [facility].
[2024-09-12 11:00] VITALS: BP 103/74; BP 128/77; BP 89/54; PULSE 77; PULSE 81; PULSE 97
[2024-09-12 12:05] LABS: Glucose - Point of Care 154 mg/dl (70-99)
[2024-09-12] MEDS: PROTONIX 20 MG PO (13:18)
[2024-09-12] MEDS: DELTASONE 40 MG PO (13:18)
--- NOTE | 2024-09-12 13:20 | W.PN.HOSP.TC ---
Today's Communication/Plan
-
Monitor vital signs see plan
Continue with IV diuresis
Pulmonary following, started on prednisone
Granddaughter updated over the phone
Continue with antibiotic
Assessment / Plan
Assessment / Plan
89yo F with pulmonary fibrosis, CHF, DM, CVA, CAD, recurrent UTI came after she fell at home since she was not steady on her feet. Found UTI, CHF exacerbation, that confirmed on CT without radiographic signs of the pneumonia. Undergoing diuresis,
planned for [facility] this admission by Cardio
A/P:
#Acute hypoxic respiratory failure
multifactorial 2/2 CHF and cannot exclude COPD exacerbation since patient is wheezing
Acute on chronic HFrEF exacerbation
#Ischemic CM
#Paroxysmal Afib
#Non-ischemic myocardial injury
LAsix, daily weight, I&O
cont rate control
Cardiology consult: plan for left cardiac cath as patient previously was recommended but declined. Now it appears that patient is declining catheterization again. Spoke with granddaughter over the phone. It appears the patient does not want any
invasive procedures.
Elevated troponin, suspect nonischemic myocardial injury
Repeat Echo: EF 40-45% with Inferior, inferolateral, anterior and apical hypokinesis, stage 2 diastolic dysfunction, mild MS and MR, mild pulmonary HTN with mild-moderate TR. moderate-severe
Given that she is still feeling short of breath, pulmonary started prednisone. Continue to monitor
#UTI
was on rocephin, ucx grew ecoli
change abx to cefdinir to finish course
Mild hyponatremia
Monitor
#Fall 2/[address] without bleeding or hematoma
PT/OT
#moderate hiatal hernia
asymptomatic, but adjusted atelectasis might contribute to dyspnea. Outpatient GenSx eval
#Atelectasis
Incentive spirometry
#DISH
#Chronic T11 compression Fx
PCP follow up
Tylenol
PT
#Hyponatremia
#hyperkalemia
most likely 2/2 CHF
follow urinary studies and cont diuresis with FR
monitor BMP - mild hyperkalemia and sodium improving
#Mastoid cell opacification
no ear pain
outpatient ENT
#Hx of possible ILD
Pulm consult: unlikely correct Dx, no need for steroids
No signs of pneumonia on XR
#DM type 2 with neuropathy
Accuchecks, Insulin SS, DM diet
#Hx of CVA
#Carotis stenosis s/p CEA
#Anxiety d/o
cont home meds
#Mild anemia
follow CBC
outpatient w/u by PCP
DVT ppx Eliquis
DNR/DNI
General: Comfortable
HEENT: Normocephalic
Respiratory: Rales and Crackles
Cardiac: Regular Rhythm
GI: Soft, Nontender and Nondistended
Musculoskeletal: No Clubbing, No Cyanosis and No Edema
Neuro: Awake, Alert, Oriented and AO x 3
Psych: Calm and Apparent Dementia
I spent a total of 52 minutes with the patient or on the floor. More than 50% of this time involved counseling and coordination of care.
Anticipated Discharge: > 48 hours
Subjective/Interval History
-
Date of Service: September 12, 2024
denies pain
Objective Data
-
Labs:
Laboratory Results
09/12/24
07:38
WBC 6.1
Hgb 11.5 L
Hct 35.5 L
Plt Count 245
Sodium 132 L
Potassium 4.4
Chloride 95 L
Carbon Dioxide 26
BUN 28 H
Creatinine 0.7
Glucose 165 H
Calcium 9.3
Vital Signs:
Vital Signs
Temp Pulse Resp BP Pulse Ox
97.8 F 77 20 128/77 93
09/12/24 11:00 12/17/24 11:00 09/12/24 11:00 09/12/24 11:00 09/12/24 11:00
I&O
09/11/24 09/12/24 09/13/24
06:59 06:59 06:59
Intake Total 960 / 960 720 / 720
Output Total 890 / 890
Balance 70 / 70 720 / 720
[2024-09-12] MEDS: TESSALON PERLES 100 MG PO ×2 (13:31→20:43)
[2024-09-12] MEDS: XANAX 0.25 MG PO ×2 (13:31→20:24)
--- NOTE | 2024-09-12 14:44 | W.PN.CARDCBS ---
Addendum entered and electronically signed by El Sidhu MD 09/12/24 16:59:
I saw and examined the patient.
The Sample Puller's note was reviewed and I agree with the note.
Comment:
GEN: No distress, awake, Ox3
HEENT: supple, anicteric, mmm
LUNGS: bilat rhonchi/rales
CV: Reg, S1/S2, 1/6 syst LSB, no murmur
ABD: soft, BS+, NT/ND
EXT: No edema
NEURO: Gross non-focal
SKIN: No rash
Plan:
having active wheezing. Repeat pro-BNP in AM.
Will cont Lasix 40mg Iv daily. ?Orthostasis
Cont prednisone.
Cont Amiodarone/Toprol/Eliquis/Plavix
Remains in sinus.
Original Note:
Today's Communication / Plan
-
repeat proBNP in AM. reduce IV lasix, may even transition to po in AM
follow BPs
treatment of ongoing wheezing per pulm
compression stockings
declining cath, continue medical therapy of suspected CAD
Impression / Plan
-
.
PCP: Dr. Nuzhat Jorge
Battery Tester Field: Dr. Funes
Impression:
Presented with SOB, weakness
� Productive cough
Acute on chronic HFmrEF
UTI
Elevated troponin, suspect nonischemic myocardial injury
Paroxysmal atrial fibrillation
CM EF 40-45% Apr 2024
Mild to mod
Abnormal stress test
h/o multiple ischemic strokes which have been felt likely to represent small vessel disease and atherosclerosis
Autonomic dysfunction/hypotension/orthostasis treated with midodrine as needed
Carotid stenosis, right s/p stent
Hypercholesterolemia
Type 2 diabetes with diabetic neuropathy
History of seizure disorder
Breast Ca with Radiation Therapy s/p Left Mastectomy
GERD/Hiatal Hernia
RLS
UTIs
PSH: Hysterectomy /History of bowel resection/ Back surgery
Iron Deficiency
Congenital malformation of esophagus
Gait difficulty
Dysphagia
Former smoker
3 weeks of cardiac monitoring May 2021 failed to demonstrate atrial fibrillation
Echo 04/15/2022: small left ventricle with moderate left ventricular hypertrophy and ejection fraction of 60 to 65%. There is mild aortic stenosis with peak and mean gradients of 28 and 15 mmHg and calculated aortic valve area of 1.5 cm�.
Echo 05/15/2024: EF 40 to 45%, global hypokinesis, stage II diastolic dysfunction, MAC, mild MR, mild to moderate with peak/mean gradients 27/18 mmHg, KAYLEIGH 1.4 cm�, trace AR
ECHO 05/25/2024: EF 40 to 45%, apex, inferolateral, inferior and anterior perez are hypokinetic, appears stable compared to prior.
Echo 09/08/2024: EF 40-45%, inferior, inferolateral, anterior, and apical hypokinesis. Mild MS, MAC, mild MR, moderate to severe (57/32 mmHg), mild to moderate TR, mild pulmonary hypertension PASP 43 mmHg
Plan:
-she reports continued weakness. continue PT/OT as able
-weight downtrending with IV lasix if accurate. currently on 60mg IV lasix daily, was on 20mg po daily prior to admission. Cr stable
-noted to be orthostatic this AM. add compression stockings. will repeat proBNP in AM and tentatively decrease IV lasix to 40mg daily starting 09/13. may transition to po if proBNP improved.
-remains with significant wheezing and rhonchi on examination, suspect pulm in etiology - has ILD. pulm following. on steroid taper.
-echo 04/2024 with new EF 40-45% and mild to mod . she had OP PET/CT stress which was abnormal and was recommended cath but declined and continues to decline this admission
-continue plavix, eliquis
-in SR. continue amio, toprol
-Cont med tx of nonMI trop peak 0.049
-Discussed with nursing
-called and discussed with patient's granddaughter Candi via telephone for 15:04. suspected patient will opt for conservative mgmt of cardiac conditions. remains DNR.
HPI: Alexandra is an 89-year-old female with medical history of paroxysmal atrial fibrillation, chronic HFmrEF, abnormal stress test, prior CVAs, orthostasis, type 2 diabetes, seizure disorder, prior breast cancer, GERD, carotid stenosis with prior
stenting, hyperlipidemia, and dysphagia. Presented to ER for evaluation after fall. When she was recently seen by cardiology, she was arranged for PET/CT stress test for evaluation as she had new A-fib and cardiomyopathy with ongoing weakness
and dyspnea on exertion. PET/CT stress test was abnormal and she was arranged for cardiac catheterization 08/29/2024, however patient canceled the procedure the night before, as she states she was concerned about staying overnight in the hospital if
she did require a stent. She continued to have weakness and SOB and last evening her legs gave out and she was unable to get up. Family was also unable to help her up and 911 called. She was hypoxic when EMS arrived and placed on BiPAP. In ER,
patient noted to be in acute heart failure with proBNP 7530. Chest xray with mild-mod pulmonary edema. She was started on IV lasix and weight down slightly overnight. Weight on admission up approximately 13 lbs from dry weight.
Progress Note - Battery Tester Field
Subjective
Date of Service: September 12, 2024
reports continued weakness and wheezing
Objective
Labs:
09/12/24 07:38
09/12/24 07:38
Labs
Hgb 11.5 g/dL (12.0-16.0) L 09/12/24 07:38
Hct 35.5 % (37.0-47.0) L 09/12/24 07:38
Plt Count 245 10^3/uL (130-400) 09/12/24 07:38
Sodium 132 mmol/L (135-145) L 09/12/24 07:38
Potassium 4.4 mmol/L (3.5-5.1) 09/12/24 07:38
BUN 28 mg/dl (7-17) H 09/12/24 07:38
Creatinine 0.7 mg/dL (0.6-1.0) 09/12/24 07:38
Glucose 165 mg/dl (70-99) H 09/12/24 07:38
Vital Signs and I&O:
Vital Signs
Temp Pulse Resp BP Pulse Ox
97.8 F 77 20 128/77 93
09/12/24 11:00 09/12/24 11:00 09/12/24 11:00 09/12/24 11:00 09/12/24 11:00
Vital Signs
Temp Pulse Resp BP Pulse Ox
97.8 F 77 20 128/77 93
09/12/24 11:00 09/12/24 11:00 09/12/24 11:00 09/12/24 11:00 09/12/24 11:00
Intake & Output
09/10/24 09/11/24 09/12/24 09/13/24
07:59 07:59 07:59 07:59
Intake Total 720 / 720 960 / 960 720 / 720
Output Total 1200 / 1200 890 / 890
Balance -480 / -480 70 / 70 720 / 720
Physical Exam
Physical Exam
GEN: No distress, awake, alert, oriented x3
HEENT: supple, anicteric, mmm, eomi
LUNGS: Diffuse wheezing/rhonchi B/L
CV: Reg, S1/S2, 2/6 syst LSB
ABD: soft, BS+, NT/ND
EXT: No cyanosis, clubbing, edema
NEURO: Gross non-focal
SKIN: Warm, pink, dry. No rash
[2024-09-12 15:00] VITALS: BP 147/77
[2024-09-12 17:22] LABS: Glucose - Point of Care 223 mg/dl (70-99)
[2024-09-12] MEDS: LIPITOR 20 MG PO (17:56)
[2024-09-12] MEDS: REQUIP 0.5 MG PO (17:56)
[2024-09-12] MEDS: NOVOLOG FLEXPEN-LOW RESISTANCE 2 UNITS SC (17:57)
[2024-09-12 19:15] VITALS: BP 146/77
[2024-09-12] MEDS: MELATONIN 5 MG PO (20:24)
[2024-09-12 21:48] LABS: Glucose - Point of Care 352 mg/dl (70-99)
[2024-09-12 23:40] VITALS: BP 143/90
[2024-09-13 03:00] VITALS: BP 130/71; BP 145/84; BP 156/82; PULSE 73; PULSE 77; PULSE 79
[2024-09-13] MEDS: TYLENOL 650 MG PO ×2 (03:19→16:45)
[2024-09-13 07:00] VITALS: BP 117/67
[2024-09-13 07:43] LABS: Glucose - Point of Care 202 mg/dl (70-99)
[2024-09-13] MEDS: NOVOLOG FLEXPEN-LOW RESISTANCE 2 UNITS SC ×2 (08:25→12:20)
[2024-09-13] MEDS: MUCINEX 1200 MG PO ×2 (08:29→20:35)
[2024-09-13] MEDS: LASIX 40 MG IV ×2 (08:30→16:43)
[2024-09-13] MEDS: TOPROL XL 12.5 MG PO (08:31)
[2024-09-13] MEDS: OCUVITE SOFTGEL 1 CAP PO ×2 (08:31→20:35)
[2024-09-13] MEDS: OMNICEF 300 MG PO ×2 (08:32→20:34)
[2024-09-13] MEDS: DELTASONE 40 MG PO (08:32)
[2024-09-13] MEDS: PACERONE 200 MG PO (08:33)
[2024-09-13] MEDS: PLAVIX 75 MG PO (08:33)
[2024-09-13] MEDS: ELIQUIS 5 MG PO (08:33)
[2024-09-13] MEDS: PROTONIX 20 MG PO (08:33)
[2024-09-13 08:35] LABS: % Basophils 0.1 % (0-2); % Eosinophils 0.1 % (0-6); % Immature Granulocytes 0.4 % (0-0.5); % Lymphocytes 15.5 % (20.5-51.1); % Monocytes 5.6 % (1.7-9.3); % Neutrophils 78.3 % (42.2-75.2); Absolute Lymphocytes 1.3 10^3/uL (1.2-3.4); Absolute Monocytes 0.5 10^3/uL (0.1-0.6); Absolute Neutrophils 6.3 10^3/uL (1.4-6.5); Hematocrit 38.3 % (37.0-47.0); Hemoglobin 12.7 g/dL (12.0-16.0); Mean Corp Hgb Conc. 33.2 g/dL (33.0-37.0); Mean Corpuscular Hgb 28.8 pg (27.0-31.0); Mean Corpuscular Volume 86.8 fL (81.0-99.0); Mean Platelet Volume 9.7 fL (7.4-10.4); Nucleated Red Blood Cells % 0 %; Platelet Count 312 10^3/uL (130-400); Red Blood Cell Count 4.41 10^6/uL (4.20-5.40); Red Cell Dist. Width 14.4 % (11.5-14.5); White Blood Cell Count 8.1 10^3/uL (4.8-10.8)
[2024-09-13 08:41] LABS: NT-proBNP 10600 pg/ml
[2024-09-13 08:43] LABS: Blood Urea Nitrogen 34 mg/dl (7-17); Calcium 9.9 mg/dl (8.4-10.2); Carbon Dioxide 26 mmol/L (22-30); Chloride 88 mmol/L (98-107); Glucose 232 mg/dl (70-99); Potassium 4.8 mmol/L (3.5-5.1); Sodium 128 mmol/L (135-145); eGFR > 60.00
--- NOTE | 2024-09-13 09:52 | W.PN.PUL.V3 ---
Today's Communication / Plan
-
Gentle diuresis
Trend proBNP
Wean FiO2
No change in prednisone
Continue nebulizers
Assessment
-
Patient is an 88-year-old female with previous history of hypertension, diabetes, history of CVA, history of breast cancer, GERD, recent admission for CHF (d/c 05/31/24) presenting from [facility] via EMS for evaluation of falling, found down
at facility, unable to get up. She notes increased urinary frequency and given OP abx. UA suggestive of UTI. Repeat CXR remains similar but proBNP elevated from 2490 to 7530. O2 >90% she is placed on 5L satting 98%. We are consulted for eval.
Acute hypercarbic respiratory failure
Acute on chronic CHF exacerbation-reduced EF
COPD suspected with mild acute exacerbation
SOB
Hyperglycemia
Hyponatremia
Mild anemia-hemoglobin 10
Lactic acidosis
Conditions present prior to admission:
Possible underlying chronic ILD-suspect very mild per CT 05/15/2024
HTN
NIDDM
Breast Ca with Radiation Therapy s/p Left Mastectomy
GERD/Hiatal Hernia
Carotid stenosis, right s/p stent
History of seizures
Hypercholesterolemia
History of stroke 2020
RLS
UTIs
Hysterectomy
History of bowel resection
Back surgery
Iron Deficiency
Congenital malformation of esophagus
Postmenopausal atrophic vaginitis
Gait difficulty
Dysphagia
Former smoker
Moderate aortic stenosis
Diastolic dysfunction
Reduced EF-40%-was 60%
Mild bronchiectasis
Plan
Respiratory decompensation likely multifactorial including fluid overload/CHF and likely has a component of ILD as well as COPD-significant wheezing and rhonchi on exam
Supplemental oxygen as needed-attempt to wean
Assess discharge supplemental oxygen needs
Incentive spirometry
Mucolytic's
Antitussives
Aspiration precautions
Nebulizers continue
Prednisone 40 mg initiated 09/12/2024-no change today-slow taper
Speech therapy evaluation 05/14/2014 noted-recommending video swallow, regular diet thin liquids and consider GI consultation
ILD noted on prior imaging--this is not consistent with UIP pattern (no significant honeycombing, some traction bronchiectasis) -- IPF diagnosis on her record is incorrect.
Review cultures
Empiric antibiotics-now on Omnicef
Gentle diuresis-positive fluid balance
Monitor renal function, electrolytes, intake/output, lower extremity edema and weight
Replace electrolytes as needed
Cardiology following-correspondence reviewed
Echocardiogram 05/15/2024-EF 40-45%, stage II diastolic dysfunction, mild mitral regurgitation, moderate aortic stenosis
Possible cardiac catheterization-Patient declined
DVT prophylaxis-on Eliquis
GI prophylaxis-on pantoprazole
Nutrition
Early mobilization
Outpatient pulmonary [id number] need PFTs especially in light of amiodarone load and maintenance going forward
Would repeat CT again as OP once CHF treated
Diagnostic Data
CXR 09/07/24-Mild to moderate diffuse pulmonary interstitial edema. Small left pleural effusion.
Chest X-Ray: 05/14/24- Suspect diffuse interstitial pneumonitis and component of pulmonary vascular congestion. Cannot rule out superimposed left basilar pneumonia and/or underlying chronic interstitial changes.
09/26/23- No acute disease of the chest. Large hiatal hernia. Enlarged.
CT chest 05/15/2024-mild reticular interstitial thickening at the lung bases with mild basilar bronchiectasis suggesting mild interstitial fibrosis, superimposed interstitial pneumonitis suspected with small bilateral pleural effusions and severe
coronary artery calcifications and large hiatal hernia
Echo: 04/23/22- 1. Small left ventricle with moderate left ventricular hypertrophy and preserved systolic function, EF 60-65%
2. Thickened mitral leaflets, mitral annular calcification, trace mitral regurgitation, and left atrial dilatation
3. Mild aortic stenosis, peak/mean gradient 28/15 mmHg, aortic valve area 1.5 cm2
4. Normal right heart with mild pulm hypertension, 36 mmHg systolic
5. Small patent foramen ovale
Echocardiogram 05/15/2024-EF 40-45%, stage II diastolic dysfunction, mild mitral regurgitation, moderate aortic stenosis
-----
Subjective Data
-
Date of Service:
Date of Service: September 13, 2024
Chief Complaint: Pulmonary Follow Up (Acute hypercapnic respiratory failure.) and Dyspnea Follow Up
Subjective:
Tearful, still wheezing, still with cough, no chest pain or abdominal pain or leg swelling
Review of Systems
General: Other (Per HPI)
Objective Data
Data Reviewed
Vital Signs / I&O:
Vital Signs
Temp Pulse Resp BP Pulse Ox
97.9 F 73 16 145/84 95
09/13/24 03:00 09/13/24 03:00 09/13/24 03:00 09/13/24 03:00 09/13/24 03:00
Intake and Output
09/12/24 09/13/24 09/14/24
06:59 06:59 06:59
Intake Total 720 / 720 1260 / 1260
Balance 720 / 720 1260 / 1260
SaO2: 95
Nasal Cannula flow liters per minute: 1
Physical Exam
General: Respiratory Distress (n) and Comfortable
HEENT: Normocephalic
Cardiovascular: Regular Rhythm
Respiratory: Wheeze (Expiratory), Crackles (Basilar), Rhonchi ( expiratory), Non-Labored Respirations, Accessory Resp Muscle Use (n) and Stridor (n)
GI: Soft, Non Distended and Non Tender
Neurology: Awake, Alert and No Motor Deficits
Skin: Warm, Good Color, Cyanosis (n) and Jaundice (n)
Labs/Micro/Reports
Lab Data
09/13/24 07:57
09/13/24 07:57
Microbiology
09/13/24 01:23 Feces/Stool - Final
Negative for Norovirus GI and GII.
09/08/24 03:56 Blood/Venous Blood Culture - Final
No Growth - Final Report
09/08/24 03:56 Blood/Venous Blood Culture - Final
No Growth - Final Report
09/07/24 23:05 Blood/Venous Blood Culture - Final
No Growth - Final Report
09/07/24 23:05 Blood/Venous Blood Culture - Final
No Growth - Final Report
09/07/24 23:47 Urine Urine Culture - Final
Escherichia coli
--- NOTE | 2024-09-13 10:46 | CM ---
Chart reviewed and recommendation by physical therapy is for skilled placement, options reviewed and patient has selected [facility], referral sent to [facility].
Plan; [facility] skilled when stable.
[2024-09-13 11:00] VITALS: BP 121/67
[2024-09-13] MEDS: XANAX 0.25 MG PO ×2 (11:42→20:41)
[2024-09-13 11:49] LABS: Glucose - Point of Care 226 mg/dl (70-99)
--- NOTE | 2024-09-13 12:52 | W.PN.HOSP.TC ---
Today's Communication/Plan
-
Monitor vital signs see plan
Continue with prednisone
Make DuoNeb standing
Continue with IV Lasix
cw cough meds
Granddaughter updated over the phone
Assessment / Plan
Assessment / Plan
89yo F with pulmonary fibrosis, CHF, DM, CVA, CAD, recurrent UTI came after she fell at home since she was not steady on her feet. Found UTI, CHF exacerbation, that confirmed on CT without radiographic signs of the pneumonia. Undergoing diuresis,
planned for [facility] this admission by Cardio
A/P:
#Acute hypoxic respiratory failure
multifactorial 2/2 CHF and cannot exclude COPD exacerbation since patient is wheezing
Acute on chronic HFrEF exacerbation
#Ischemic CM
#Paroxysmal Afib
#Non-ischemic myocardial injury
LAsix, daily weight, I&O
cont rate control
Cardiology consult: plan for left cardiac cath as patient previously was recommended but declined. Now it appears that patient is declining catheterization again. Spoke with granddaughter over the phone. It appears the patient does not want any
invasive procedures.
Elevated troponin, suspect nonischemic myocardial injury
Repeat Echo: EF 40-45% with Inferior, inferolateral, anterior and apical hypokinesis, stage 2 diastolic dysfunction, mild MS and MR, mild pulmonary HTN with mild-moderate TR. moderate-severe
Given that she is still feeling short of breath, pulmonary started prednisone. Continue to monitor
cw IV lasix
make duonebs standing
#UTI
was on rocephin, ucx grew ecoli
change abx to cefdinir to finish course
Mild hyponatremia
Monitor
#Fall 2/[address] without bleeding or hematoma
PT/OT
#moderate hiatal hernia
asymptomatic, but adjusted atelectasis might contribute to dyspnea. Outpatient GenSx eval
#Atelectasis
Incentive spirometry
#DISH
#Chronic T11 compression Fx
PCP follow up
Tylenol
PT
#Hyponatremia
#hyperkalemia
most likely 2/2 CHF
follow urinary studies and cont diuresis with FR
monitor BMP - mild hyperkalemia and sodium improving
#Mastoid cell opacification
no ear pain
outpatient ENT
#Hx of possible ILD
Pulm following; now on steroids
No signs of pneumonia on XR
#DM type 2 with neuropathy
Accuchecks, Insulin SS, DM diet
#Hx of CVA
#Carotis stenosis s/p CEA
#Anxiety d/o
cont home meds
#Mild anemia
follow CBC
outpatient w/u by PCP
DVT ppx Eliquis
DNR/DNI
General: Comfortable
HEENT: Normocephalic
Respiratory: Rales and Crackles
Cardiac: Regular Rhythm
GI: Soft, Nontender and Nondistended
Musculoskeletal: No Clubbing, No Cyanosis and No Edema
Neuro: Awake, Alert, Oriented and AO x 3
Psych: Calm and Apparent Dementia
I spent a total of 52 minutes with the patient or on the floor. More than 50% of this time involved counseling and coordination of care.
Anticipated Discharge: > 48 hours
Subjective/Interval History
-
Date of Service: September 13, 2024
does has cough
Objective Data
-
Labs:
Laboratory Results
09/13/24
07:57
WBC 8.1
Hgb 12.7
Hct 38.3
Plt Count 312 D
Sodium 128 L
Potassium 4.8
Chloride 88 L
Carbon Dioxide 26
BUN 34 H
Creatinine 0.8
Glucose 232 H
Calcium 9.9
Vital Signs:
Vital Signs
Temp Pulse Resp BP Pulse Ox
97.5 F 81 20 121/67 96
09/13/24 11:00 09/13/24 11:00 09/13/24 11:00 09/13/24 11:00 09/13/24 11:00
I&O
09/12/24 09/13/24 09/14/24
06:59 06:59 06:59
Intake Total 720 / 720 1260 / 1260
Balance 720 / 720 1260 / 1260
[2024-09-13] MEDS: DUONEB 3 ML INH ×3 (13:26→19:49)
--- NOTE | 2024-09-13 14:30 | W.PN.CARDCBS ---
Addendum entered and electronically signed by El Sidhu MD 09/13/24 15:56:
I saw and examined the patient.
The Machine Welt Butter's note was reviewed and I agree with the note.
Comment:
GEN: No distress, awake, Ox3
HEENT: supple, anicteric, mmm
LUNGS: scatt rhonchi
CV: Reg, S1/S2, 1/6 syst LSB, no murmur
ABD: soft, BS+, NT/ND
EXT: No edema
NEURO: Gross non-focal
SKIN: No rash
Plan:
proBNP remains elevated. Will continue Lasix 40 mg IV twice daily. weight is improving.
Watch for orthostasis.
Wean oxygen.
Continue prednisone and Omnicef.
Original Note:
Today's Communication / Plan
-
continue IV lasix, for additional dose this afternoon as proBNP elevated
follow BPs/orthostatic VS
wean supp O2 as able
decrease eliquis to 2.5mg BID based on age, weight
Impression / Plan
-
.
PCP: Dr. Nuzhat Jorge
Sanitation Tank Washer: Dr. Funes
Impression:
Presented with SOB, weakness
� Productive cough
Acute on chronic HFmrEF
UTI
Elevated troponin, suspect nonischemic myocardial injury
Paroxysmal atrial fibrillation
CM EF 40-45% Apr 2024
Mild to mod
Abnormal stress test
h/o multiple ischemic strokes which have been felt likely to represent small vessel disease and atherosclerosis
Autonomic dysfunction/hypotension/orthostasis treated with midodrine as needed
Carotid stenosis, right s/p stent
Hypercholesterolemia
Type 2 diabetes with diabetic neuropathy
History of seizure disorder
Breast Ca with Radiation Therapy s/p Left Mastectomy
GERD/Hiatal Hernia
RLS
UTIs
PSH: Hysterectomy /History of bowel resection/ Back surgery
Iron Deficiency
Congenital malformation of esophagus
Gait difficulty
Dysphagia
Former smoker
3 weeks of cardiac monitoring May 2021 failed to demonstrate atrial fibrillation
Echo 04/15/2022: small left ventricle with moderate left ventricular hypertrophy and ejection fraction of 60 to 65%. There is mild aortic stenosis with peak and mean gradients of 28 and 15 mmHg and calculated aortic valve area of 1.5 cm�.
Echo 05/15/2024: EF 40 to 45%, global hypokinesis, stage II diastolic dysfunction, MAC, mild MR, mild to moderate with peak/mean gradients 27/18 mmHg, KAYLEIGH 1.4 cm�, trace AR
ECHO 05/25/2024: EF 40 to 45%, apex, inferolateral, inferior and anterior perez are hypokinetic, appears stable compared to prior.
Echo 09/08/2024: EF 40-45%, inferior, inferolateral, anterior, and apical hypokinesis. Mild MS, MAC, mild MR, moderate to severe (57/32 mmHg), mild to moderate TR, mild pulmonary hypertension PASP 43 mmHg
Plan:
-remains tearful at times. reports continued weakness and SOB
-[place] [address]. will continue IV lasix, increasing dose to 40mg BID. Cr stable. was on po lasix 20mg daily prior to admission
-remains orthostatic however better than 09/12 (dropped from 156 to 130 systolic). continue compression stockings
-continue steroids. pulm following as also with ILD
-echo 04/2024 with new EF 40-45% and mild to mod . she had OP PET/CT stress which was abnormal and was recommended cath but declined and continues to decline this admission
-continue plavix. currently on eliquis 5mg BID. based on current weight and age, will decrease dose to 2.5mg BID
-in SR. continue amio, toprol
-Cont med tx of nonMI trop peak 0.049
-DNR code status
-Discussed with nursing
HPI: Alexandra is an 89-year-old female with medical history of paroxysmal atrial fibrillation, chronic HFmrEF, abnormal stress test, prior CVAs, orthostasis, type 2 diabetes, seizure disorder, prior breast cancer, GERD, carotid stenosis with prior
stenting, hyperlipidemia, and dysphagia. Presented to ER for evaluation after fall. When she was recently seen by cardiology, she was arranged for PET/CT stress test for evaluation as she had new A-fib and cardiomyopathy with ongoing weakness
and dyspnea on exertion. PET/CT stress test was abnormal and she was arranged for cardiac catheterization 08/29/2024, however patient canceled the procedure the night before, as she states she was concerned about staying overnight in the hospital if
she did require a stent. She continued to have weakness and SOB and last evening her legs gave out and she was unable to get up. Family was also unable to help her up and 911 called. She was hypoxic when EMS arrived and placed on BiPAP. In ER,
patient noted to be in acute heart failure with proBNP 7530. Chest xray with mild-mod pulmonary edema. She was started on IV lasix and weight down slightly overnight. Weight on admission up approximately 13 lbs from dry weight.
Progress Note - Sanitation Tank Washer
Subjective
Date of Service: September 13, 2024
remains tearful. c/o weakness and SOB
Objective
Labs:
09/13/24 07:57
09/13/24 07:57
Labs
Hgb 12.7 g/dL (12.0-16.0) 09/13/24 07:57
Hct 38.3 % (37.0-47.0) 09/13/24 07:57
Plt Count 312 10^3/uL (130-400) D 09/13/24 07:57
Sodium 128 mmol/L (135-145) L 09/13/24 07:57
Potassium 4.8 mmol/L (3.5-5.1) 09/13/24 07:57
BUN 34 mg/dl (7-17) H 09/13/24 07:57
Creatinine 0.8 mg/dL (0.6-1.0) 09/13/24 07:57
Glucose 232 mg/dl (70-99) H 09/13/24 07:57
Vital Signs and I&O:
Vital Signs
Temp Pulse Resp BP Pulse Ox
97.5 F 77 16 121/67 99
09/13/24 11:00 09/13/24 13:27 09/13/24 13:27 09/13/24 11:00 09/13/24 13:27
Vital Signs
Temp Pulse Resp BP Pulse Ox
97.5 F 77 16 121/67 99
09/13/24 11:00 09/13/24 13:27 09/13/24 13:27 09/13/24 11:00 09/13/24 13:27
Intake & Output
09/11/24 09/12/24 09/13/24 09/14/24
07:59 07:59 07:59 07:59
Intake Total 960 / 960 720 / 720 1260 / 1260
Output Total 890 / 890
Balance 70 / 70 720 / 720 1260 / 1260
[2024-09-13 15:00] VITALS: BP 110/57
[2024-09-13] MEDS: LIPITOR PO ×2 (16:44→16:49)
[2024-09-13] MEDS: REQUIP 0.5 MG PO (16:55)
[2024-09-13 16:58] LABS: Glucose - Point of Care 470 mg/dl (70-99)
[2024-09-13 17:01] LABS: Glucose - Point of Care 455 mg/dl (70-99)
[2024-09-13 17:03] LABS: Glucose - Point of Care 450 mg/dl (70-99)
[2024-09-13 18:01] LABS: Glucose 484 mg/dl (70-99)
[2024-09-13] MEDS: NOVOLOG FLEXPEN-LOW RESISTANCE SC (18:10)
--- NOTE | 2024-09-13 18:10 | PTCARENOTE ---
1800 Pt blood sugar on accucheck machine read HI results. Obtain venous glucose (result 484) notified Dr. Emanuel. Noted new insulin orders as ordered per MD. Explain to pt and pt's daughter at bedside current insulin orders.
[2024-09-13] MEDS: NOVOLOG FLEXPEN 12 UNITS SC (18:13)
[2024-09-13 19:15] VITALS: BP 134/62
[2024-09-13] MEDS: ELIQUIS 2.5 MG PO (20:35)
[2024-09-13] MEDS: MELATONIN 5 MG PO (20:41)
[2024-09-13 21:55] LABS: Glucose - Point of Care 352 mg/dl (70-99)
[2024-09-13] MEDS: LANTUS 0.09 UNITS SC (22:24)
[2024-09-13 23:35] VITALS: BP 108/56
[2024-09-14] VITALS (7 sets, daily range): BP systolic 92–146; BP diastolic 50–73; PULSE 74–86
[2024-09-14] MEDS: TYLENOL 650 MG PO ×4 (02:38→19:51)
[2024-09-14 02:39] LABS: Glucose - Point of Care 198 mg/dl (70-99)
[2024-09-14] MEDS: DUONEB 3 ML INH ×4 (07:23→19:52)
[2024-09-14 08:00] LABS: Glucose - Point of Care 172 mg/dl (70-99)
[2024-09-14 08:33] LABS: % Basophils 0.2 % (0-2); % Eosinophils 0.2 % (0-6); % Immature Granulocytes 0.4 % (0-0.5); % Lymphocytes 20.1 % (20.5-51.1); % Monocytes 6.2 % (1.7-9.3); % Neutrophils 72.9 % (42.2-75.2); Absolute Immature Granulocytes 0.1 10^3/uL (0-0.05); Absolute Lymphocytes 2.3 10^3/uL (1.2-3.4); Absolute Monocytes 0.7 10^3/uL (0.1-0.6); Absolute Neutrophils 8.4 10^3/uL (1.4-6.5); Hematocrit 33.8 % (37.0-47.0); Hemoglobin 11.4 g/dL (12.0-16.0); Mean Corp Hgb Conc. 33.7 g/dL (33.0-37.0); Mean Platelet Volume 9.9 fL (7.4-10.4); Nucleated Red Blood Cells % 0 %; Platelet Count 289 10^3/uL (130-400); Red Blood Cell Count 3.93 10^6/uL (4.20-5.40); Red Cell Dist. Width 14.6 % (11.5-14.5); White Blood Cell Count 11.5 10^3/uL (4.8-10.8)
[2024-09-14] MEDS: TOPROL XL PO (08:59)
[2024-09-14] MEDS: MUCINEX 1200 MG PO ×2 (09:00→19:51)
[2024-09-14] MEDS: NOVOLOG FLEXPEN-LOW RESISTANCE 1 UNITS SC (09:00)
[2024-09-14] MEDS: NOVOLOG FLEXPEN 3 UNITS SC ×2 (09:00→12:36)
[2024-09-14] MEDS: PROTONIX 20 MG PO (09:01)
[2024-09-14] MEDS: ELIQUIS 2.5 MG PO ×2 (09:02→19:51)
[2024-09-14] MEDS: PACERONE 200 MG PO (09:02)
[2024-09-14] MEDS: PLAVIX 75 MG PO (09:02)
[2024-09-14] MEDS: OCUVITE SOFTGEL 1 CAP PO ×2 (09:02→19:51)
[2024-09-14] MEDS: DELTASONE 40 MG PO (09:03)
[2024-09-14] MEDS: LASIX 40 MG IV (09:04)
[2024-09-14 09:24] LABS: Blood Urea Nitrogen 45 mg/dl (7-17); Calcium 9.4 mg/dl (8.4-10.2); Carbon Dioxide 27 mmol/L (22-30); Chloride 90 mmol/L (98-107); Glucose 165 mg/dl (70-99); Potassium 4.3 mmol/L (3.5-5.1); Sodium 129 mmol/L (135-145); eGFR 54.19
--- NOTE | 2024-09-14 10:23 | W.PN.PUL.V3 ---
Today's Communication / Plan
-
Improved with diuresis as well as prednisone
Decrease prednisone
Diuresis per cardiology
Assessment
-
Patient is an 88-year-old female with previous history of hypertension, diabetes, history of CVA, history of breast cancer, GERD, recent admission for CHF (d/c 05/31/24) presenting from [facility] via EMS for evaluation of falling, found down
at facility, unable to get up. She notes increased urinary frequency and given OP abx. UA suggestive of UTI. Repeat CXR remains similar but proBNP elevated from 2490 to 7530. O2 >90% she is placed on 5L satting 98%. We are consulted for eval.
Acute hypercarbic respiratory failure
Acute on chronic CHF exacerbation-reduced EF
COPD suspected with mild acute exacerbation
SOB
Hyperglycemia
Hyponatremia
Mild anemia-hemoglobin 10
Lactic acidosis
Conditions present prior to admission:
Possible underlying chronic ILD-suspect very mild per CT 05/15/2024
HTN
NIDDM
Breast Ca with Radiation Therapy s/p Left Mastectomy
GERD/Hiatal Hernia
Carotid stenosis, right s/p stent
History of seizures
Hypercholesterolemia
History of stroke 2020
RLS
UTIs
Hysterectomy
History of bowel resection
Back surgery
Iron Deficiency
Congenital malformation of esophagus
Postmenopausal atrophic vaginitis
Gait difficulty
Dysphagia
Former smoker
Moderate aortic stenosis
Diastolic dysfunction
Reduced EF-40%-was 60%
Mild bronchiectasis
Plan
Respiratory decompensation likely multifactorial including fluid overload/CHF and likely has a component of ILD as well as COPD-significant wheezing and rhonchi on exam
Supplemental oxygen as needed-attempt to wean
Assess discharge supplemental oxygen needs
Incentive spirometry
Mucolytic's
Antitussives
Aspiration precautions
Nebulizers continue
Prednisone 40 mg initiated 09/12/2024--decrease to prednisone 30 mg daily 09/14/2024
Speech therapy evaluation 05/14/2014 noted-recommending video swallow, regular diet thin liquids and consider GI consultation
ILD noted on prior imaging--this is not consistent with UIP pattern (no significant honeycombing, some traction bronchiectasis) -- IPF diagnosis on her record is incorrect.
Review cultures
Empiric antibiotics-now on Omnicef
Continue with gentle diuresis-positive fluid balance
Monitor renal function, electrolytes, intake/output, lower extremity edema and weight
Replace electrolytes as needed
Cardiology following-correspondence reviewed
Echocardiogram 05/15/2024-EF 40-45%, stage II diastolic dysfunction, mild mitral regurgitation, moderate aortic stenosis
proBNP continues to be elevated
Possible cardiac catheterization-Patient declined
DVT prophylaxis-on Eliquis
GI prophylaxis-on pantoprazole
Nutrition
Early mobilization
Reviewed with nursing
Outpatient pulmonary [id number] need PFTs especially in light of amiodarone load and maintenance going forward
Would repeat CT again as OP once CHF treated
Diagnostic Data
CXR 09/07/24-Mild to moderate diffuse pulmonary interstitial edema. Small left pleural effusion.
Chest X-Ray: 05/14/24- Suspect diffuse interstitial pneumonitis and component of pulmonary vascular congestion. Cannot rule out superimposed left basilar pneumonia and/or underlying chronic interstitial changes.
09/26/23- No acute disease of the chest. Large hiatal hernia. Enlarged.
CT chest 05/15/2024-mild reticular interstitial thickening at the lung bases with mild basilar bronchiectasis suggesting mild interstitial fibrosis, superimposed interstitial pneumonitis suspected with small bilateral pleural effusions and severe
coronary artery calcifications and large hiatal hernia
Echo: 04/23/22- 1. Small left ventricle with moderate left ventricular hypertrophy and preserved systolic function, EF 60-65%
2. Thickened mitral leaflets, mitral annular calcification, trace mitral regurgitation, and left atrial dilatation
3. Mild aortic stenosis, peak/mean gradient 28/15 mmHg, aortic valve area 1.5 cm2
4. Normal right heart with mild pulm hypertension, 36 mmHg systolic
5. Small patent foramen ovale
Echocardiogram 05/15/2024-EF 40-45%, stage II diastolic dysfunction, mild mitral regurgitation, moderate aortic stenosis
-----
Subjective Data
-
Date of Service:
Date of Service: September 14, 2024
Chief Complaint: Pulmonary Follow Up (Acute hypercapnic respiratory failure.) and Dyspnea Follow Up
Subjective:
Feels a little better, less cough, no chest pain or abdominal pain
Review of Systems
General: Other (Per HPI)
Objective Data
Data Reviewed
Vital Signs / I&O:
Vital Signs
Temp Pulse Resp BP Pulse Ox
97.9 F 83 18 95/50 95
09/14/24 08:12 09/14/24 08:59 09/14/24 08:12 09/14/24 08:59 09/14/24 08:12
Intake and Output
09/13/24 09/14/24 09/15/24
06:59 06:59 06:59
Intake Total 1260 / 1260 1440 / 1440
Balance 1260 / 1260 1440 / 1440
SaO2: 95
Nasal Cannula flow liters per minute: 1
Physical Exam
General: Respiratory Distress (n) and Comfortable
HEENT: Normocephalic
Cardiovascular: Regular Rhythm
Respiratory: Wheeze (Expiratory), Crackles (Basilar), Rhonchi ( expiratory), Non-Labored Respirations, Accessory Resp Muscle Use (n) and Stridor (n)
GI: Soft, Non Distended and Non Tender
Neurology: Awake, Alert and No Motor Deficits
Skin: Warm, Good Color, Cyanosis (n) and Jaundice (n)
Labs/Micro/Reports
Lab Data
09/14/24 07:46
09/14/24 07:46
Microbiology
09/13/24 01:23 Feces/Stool - Final
Negative for Norovirus GI and GII.
09/08/24 03:56 Blood/Venous Blood Culture - Final
No Growth - Final Report
09/08/24 03:56 Blood/Venous Blood Culture - Final
No Growth - Final Report
09/07/24 23:05 Blood/Venous Blood Culture - Final
No Growth - Final Report
09/07/24 23:05 Blood/Venous Blood Culture - Final
No Growth - Final Report
--- NOTE | 2024-09-14 11:30 | W.PN.HOSP.TC ---
Today's Communication/Plan
-
Monitor vital signs see plan
Continue with IV diuresis
Continue with prednisone
DuoNebs standing and as needed
Continue with insulin
Assessment / Plan
Assessment / Plan
89yo F with pulmonary fibrosis, CHF, DM, CVA, CAD, recurrent UTI came after she fell at home since she was not steady on her feet. Found UTI, CHF exacerbation, that confirmed on CT without radiographic signs of the pneumonia. Undergoing diuresis,
planned for [facility] this admission by Cardio
A/P:
#Acute hypoxic respiratory failure
multifactorial 2/2 CHF and cannot exclude COPD exacerbation since patient is wheezing
Acute on chronic HFrEF exacerbation
#Ischemic CM
#Paroxysmal Afib
#Non-ischemic myocardial injury
LAsix, daily weight, I&O
cont rate control
Cardiology consult: plan for left cardiac cath as patient previously was recommended but declined. Now it appears that patient is declining catheterization again. Spoke with granddaughter over the phone. It appears the patient does not want any
invasive procedures.
Elevated troponin, suspect nonischemic myocardial injury
Repeat Echo: EF 40-45% with Inferior, inferolateral, anterior and apical hypokinesis, stage 2 diastolic dysfunction, mild MS and MR, mild pulmonary HTN with mild-moderate TR. moderate-severe
Given that she is still feeling short of breath, pulmonary started prednisone. Continue to monitor
cw IV lasix
cw duonebs standing and as needed
#UTI
was on rocephin, ucx grew ecoli
change abx to cefdinir to finish course
#DM type 2 with neuropathy
Accuchecks, Insulin SS, DM diet
started on long-acting and short acting insulin given hyperglycemia secondary to steroids
Mild hyponatremia
Monitor
#Fall 2/[address] head without bleeding or hematoma
PT/OT
#moderate hiatal hernia
asymptomatic, but adjusted atelectasis might contribute to dyspnea. Outpatient GenSx eval
#Atelectasis
Incentive spirometry
#DISH
#Chronic T11 compression Fx
PCP follow up
Tylenol
PT
#Hyponatremia
#hyperkalemia
most likely 2/2 CHF
follow urinary studies and cont diuresis with FR
monitor BMP - mild hyperkalemia and sodium improving
#Mastoid cell opacification
no ear pain
outpatient ENT
#Hx of possible ILD
Pulm following; now on steroids
No signs of pneumonia on XR
#Hx of CVA
#Carotis stenosis s/p CEA
#Anxiety d/o
cont home meds
#Mild anemia
follow CBC
outpatient w/u by PCP
DVT ppx Eliquis
DNR/DNI
General: Comfortable
HEENT: Normocephalic
Respiratory: Rales and Crackles
Cardiac: Regular Rhythm
GI: Soft, Nontender and Nondistended
Musculoskeletal: No Clubbing, No Cyanosis and No Edema
Neuro: Awake, Alert, Oriented and AO x 3
Psych: Calm and Apparent Dementia
I spent a total of 51 minutes with the patient or on the floor. More than 50% of this time involved counseling and coordination of care.
Anticipated Discharge: > 48 hours
Subjective/Interval History
-
Date of Service: September 14, 2024
Denies chest pain
Objective Data
-
Labs:
Laboratory Results
09/14/24
07:46
WBC 11.5 H
Hgb 11.4 L
Hct 33.8 L
Plt Count 289
Sodium 129 L
Potassium 4.3
Chloride 90 L
Carbon Dioxide 27
BUN 45 H
Creatinine 1.0
Glucose 165 H
Calcium 9.4
Vital Signs:
Vital Signs
Temp Pulse Resp BP Pulse Ox
97.9 F 83 18 95/50 95
09/14/24 08:12 09/14/24 08:59 09/14/24 08:12 09/14/24 08:59 09/14/24 10:23
I&O
09/13/24 09/14/24 09/15/24
06:59 06:59 06:59
Intake Total 1260 / 1260 1440 / 1440
Balance 1260 / 1260 1440 / 1440
--- NOTE | 2024-09-14 11:47 | CM ---
wardrobe manager continues to follow with patient progress and spoke with patient this am, patient did well with physical therapy, referral was sent to [facility]. Patient will need Auth for skilled placement.
Plan; Physical therapy are recommending skilled patient would prefer to return to home, but is agreeable to [facility], referral sent to [facility] and child welfare caseworker will need an Auth for skilled placement.
[2024-09-14 11:52] LABS: Glucose - Point of Care 279 mg/dl (70-99)
[2024-09-14] MEDS: NOVOLOG FLEXPEN-LOW RESISTANCE 3 UNITS SC (12:36)
[2024-09-14] MEDS: XANAX 0.25 MG PO ×2 (14:37→19:54)
--- NOTE | 2024-09-14 16:09 | W.PN.CARDCBS ---
Addendum entered and electronically signed by El Sidhu MD 09/14/24 19:01:
I saw and examined the patient.
The Director Of Estate's note was reviewed and I agree with the note.
Comment:
GEN: No distress, awake, Ox3
HEENT: supple, anicteric, mmm
LUNGS: scatt rhonchi
CV: Reg, S1/S2, 1/6 syst LSB, no gallop
ABD: soft, BS+, NT/ND
EXT: No edema
NEURO: Gross non-focal
SKIN: No rash
PLan:
Weight is improved and breathing is slowly improving. Will continue Lasix 40 mg p.o. twice daily.
Watch for orthostasis. Continue Eliquis.
Continue to treat COPD.
Creatinine normal at 1.0
Original Note:
Today's Communication / Plan
-
po lasix 40mg BID
watch for orthostasis
compression stockings
pulm toilet
eliquis 2.5mg BID
will arrange OP cardiac follow up
Impression / Plan
-
.
PCP: Dr. Nuzhat Jorge
Well Surveying Engineer: Dr. Funes
Impression:
Presented with SOB, weakness
� Productive cough
Acute on chronic HFmrEF
UTI
Elevated troponin, suspect nonischemic myocardial injury
Paroxysmal atrial fibrillation
CM EF 40-45% Apr 2024
Mild to mod
Abnormal stress test
h/o multiple ischemic strokes which have been felt likely to represent small vessel disease and atherosclerosis
Autonomic dysfunction/hypotension/orthostasis treated with midodrine as needed
Carotid stenosis, right s/p stent
Hypercholesterolemia
Type 2 diabetes with diabetic neuropathy
History of seizure disorder
Breast Ca with Radiation Therapy s/p Left Mastectomy
GERD/Hiatal Hernia
RLS
UTIs
PSH: Hysterectomy /History of bowel resection/ Back surgery
Iron Deficiency
Congenital malformation of esophagus
Gait difficulty
Dysphagia
Former smoker
3 weeks of cardiac monitoring May 2021 failed to demonstrate atrial fibrillation
Echo 04/15/2022: small left ventricle with moderate left ventricular hypertrophy and ejection fraction of 60 to 65%. There is mild aortic stenosis with peak and mean gradients of 28 and 15 mmHg and calculated aortic valve area of 1.5 cm�.
Echo 05/15/2024: EF 40 to 45%, global hypokinesis, stage II diastolic dysfunction, MAC, mild MR, mild to moderate with peak/mean gradients 27/18 mmHg, KAYLEIGH 1.4 cm�, trace AR
ECHO 05/25/2024: EF 40 to 45%, apex, inferolateral, inferior and anterior perez are hypokinetic, appears stable compared to prior.
Echo 09/08/2024: EF 40-45%, inferior, inferolateral, anterior, and apical hypokinesis. Mild MS, MAC, mild MR, moderate to severe (57/32 mmHg), mild to moderate TR, mild pulmonary hypertension PASP 43 mmHg
Plan:
-seems very depressed, remains tearful
-breathing improved. No wheezing on exam today. BUN and creatinine uptrending. Will transition patient to p.o. Lasix 40 mg twice daily. Was on p.o. Lasix 20 mg daily prior to admission
-Watch for orthostasis. Continue compression stockings
-continue steroids. pulm following as also with ILD
-echo 04/2024 with new EF 40-45% and mild to mod . she had OP PET/CT stress which was abnormal and was recommended cath but declined and continues to decline this admission
-continue plavix. Eliquis dose decreased to 2.5 mg twice daily given current age and weight
-in SR. continue amio, toprol
-Cont med tx of nonMI trop peak 0.049
-DNR code status
-Discussed with nursing
HPI: Alexandra is an 89-year-old female with medical history of paroxysmal atrial fibrillation, chronic HFmrEF, abnormal stress test, prior CVAs, orthostasis, type 2 diabetes, seizure disorder, prior breast cancer, GERD, carotid stenosis with prior
stenting, hyperlipidemia, and dysphagia. Presented to ER for evaluation after fall. When she was recently seen by cardiology, she was arranged for PET/CT stress test for evaluation as she had new A-fib and cardiomyopathy with ongoing weakness
and dyspnea on exertion. PET/CT stress test was abnormal and she was arranged for cardiac catheterization 08/29/2024, however patient canceled the procedure the night before, as she states she was concerned about staying overnight in the hospital if
she did require a stent. She continued to have weakness and SOB and last evening her legs gave out and she was unable to get up. Family was also unable to help her up and 911 called. She was hypoxic when EMS arrived and placed on BiPAP. In ER,
patient noted to be in acute heart failure with proBNP 7530. Chest xray with mild-mod pulmonary edema. She was started on IV lasix and weight down slightly overnight. Weight on admission up approximately 13 lbs from dry weight.
Progress Note - Well Surveying Engineer
Subjective
Date of Service: September 14, 2024
Breathing appears to be improving. Patient remains tearful
Objective
Labs:
09/14/24 07:46
09/14/24 07:46
Labs
Hgb 11.4 g/dL (12.0-16.0) L 09/14/24 07:46
Hct 33.8 % (37.0-47.0) L 09/14/24 07:46
Plt Count 289 10^3/uL (130-400) 09/14/24 07:46
Sodium 129 mmol/L (135-145) L 09/14/24 07:46
Potassium 4.3 mmol/L (3.5-5.1) 09/14/24 07:46
BUN 45 mg/dl (7-17) H 09/14/24 07:46
Creatinine 1.0 mg/dL (0.6-1.0) 09/14/24 07:46
Glucose 165 mg/dl (70-99) H 09/14/24 07:46
Vital Signs and I&O:
Vital Signs
Temp Pulse Resp BP Pulse Ox
97.6 F 71 16 102/54 96
09/14/24 12:00 09/14/24 15:41 09/14/24 15:41 09/14/24 12:00 09/14/24 15:41
Vital Signs
Temp Pulse Resp BP Pulse Ox
97.6 F 71 16 102/54 96
09/14/24 12:00 09/14/24 15:41 09/14/24 15:41 09/14/24 12:00 09/14/24 15:41
Intake & Output
09/12/24 09/13/24 09/14/24 09/15/24
07:59 07:59 07:59 07:59
Intake Total 720 / 720 1260 / 1260 1440 / 1440
Balance 720 / 720 1260 / 1260 1440 / 1440
Physical Exam
Physical Exam
GEN: No distress, awake, alert, oriented x3
HEENT: supple, anicteric, mmm, eomi
LUNGS: CTA B/L
CV: Reg, S1/S2, 2/6 syst LSB
ABD: soft, BS+, NT/ND
EXT: No cyanosis, clubbing, edema
NEURO: Gross non-focal
SKIN: Warm, pink, dry. No rash
[2024-09-14 16:44] LABS: Glucose - Point of Care 357 mg/dl (70-99)
[2024-09-14] MEDS: LIPITOR PO (17:15)
[2024-09-14] MEDS: NOVOLOG FLEXPEN-LOW RESISTANCE 5 UNITS SC (17:17)
[2024-09-14] MEDS: NOVOLOG FLEXPEN 4 UNITS SC (17:17)
[2024-09-14] MEDS: TESSALON PERLES 100 MG PO (17:17)
[2024-09-14] MEDS: LASIX 40 MG PO (17:18)
[2024-09-14] MEDS: REQUIP 0.5 MG PO (17:18)
--- NOTE | 2024-09-14 17:30 | PTCARENOTE ---
1700 Pt c/o right side pain (axillary), c/o during coughing, pain level 5 to 6. BP 115/50 pulse 85 resp 20 (noted some wheezing) Pulse ox 95% on room air. Pt mention some pain when breaths in. Pt on heart monitor (normal sinus rhythm) heart rate
80's. Pt requesting tylenol, pt had tylenol at [address] heating blanket with some relief. Notified Dr. Adelfo MD recommended to continue to monitor pt.
[2024-09-14] MEDS: LASIX IV (18:10)
[2024-09-14] MEDS: MELATONIN 5 MG PO (19:59)
[2024-09-14 21:05] LABS: Glucose - Point of Care 345 mg/dl (70-99)
[2024-09-14] MEDS: LANTUS 0.12 UNITS SC (21:53)
[2024-09-14] MEDS: LIDOCAINE 4% PATCH 1 PATCH TOPICAL (22:37)
[2024-09-15] VITALS (7 sets, daily range): BP systolic 96–157; BP diastolic 54–72
[2024-09-15] MEDS: DUONEB 3 ML INH ×5 (01:00→20:37)
[2024-09-15 07:58] LABS: Glucose - Point of Care 176 mg/dl (70-99)
[2024-09-15 08:19] LABS: % Basophils 0.2 % (0-2); % Eosinophils 0.1 % (0-6); % Immature Granulocytes 0.5 % (0-0.5); % Lymphocytes 13.7 % (20.5-51.1); % Monocytes 6.8 % (1.7-9.3); % Neutrophils 78.7 % (42.2-75.2); Absolute Immature Granulocytes 0.1 10^3/uL (0-0.05); Absolute Lymphocytes 1.8 10^3/uL (1.2-3.4); Absolute Monocytes 0.9 10^3/uL (0.1-0.6); Absolute Neutrophils 10.5 10^3/uL (1.4-6.5); Hematocrit 33.4 % (37.0-47.0); Hemoglobin 11.3 g/dL (12.0-16.0); Mean Corp Hgb Conc. 33.8 g/dL (33.0-37.0); Mean Corpuscular Hgb 28.8 pg (27.0-31.0); Mean Platelet Volume 9.6 fL (7.4-10.4); Nucleated Red Blood Cells % 0 %; Platelet Count 328 10^3/uL (130-400); Red Blood Cell Count 3.93 10^6/uL (4.20-5.40); Red Cell Dist. Width 14.6 % (11.5-14.5); White Blood Cell Count 13.3 10^3/uL (4.8-10.8)
[2024-09-15 08:54] LABS: Blood Urea Nitrogen 40 mg/dl (7-17); Calcium 9.9 mg/dl (8.4-10.2); Carbon Dioxide 27 mmol/L (22-30); Chloride 91 mmol/L (98-107); Glucose 144 mg/dl (70-99); Potassium 4.2 mmol/L (3.5-5.1); Sodium 132 mmol/L (135-145); eGFR > 60.00
[2024-09-15] MEDS: PLAVIX 75 MG PO (09:00)
[2024-09-15] MEDS: MUCINEX 1200 MG PO ×2 (09:00→19:47)
[2024-09-15] MEDS: ELIQUIS 2.5 MG PO ×2 (09:00→19:47)
[2024-09-15] MEDS: PACERONE 200 MG PO (09:00)
[2024-09-15] MEDS: OCUVITE SOFTGEL 1 CAP PO ×2 (09:00→19:47)
[2024-09-15] MEDS: DELTASONE 30 MG PO (09:00)
[2024-09-15] MEDS: PROTONIX 20 MG PO (09:00)
[2024-09-15] MEDS: LASIX 40 MG PO ×2 (09:00→17:05)
[2024-09-15] MEDS: TOPROL XL 12.5 MG PO (09:00)
[2024-09-15] MEDS: NOVOLOG FLEXPEN-LOW RESISTANCE 1 UNITS SC ×2 (09:13→12:41)
[2024-09-15] MEDS: NOVOLOG FLEXPEN 4 UNITS SC (09:13)
[2024-09-15] MEDS: TYLENOL 650 MG PO ×4 (09:18→23:47)
--- NOTE | 2024-09-15 09:58 | W.PN.PUL.V3 ---
Today's Communication / Plan
-
Wean oxygen
Increase activity
Gentle diuresis
Decrease prednisone and taper
Pulmonary will sign off
Assessment
-
Patient is an 88-year-old female with previous history of hypertension, diabetes, history of CVA, history of breast cancer, GERD, recent admission for CHF (d/c 05/31/24) presenting from [facility] via EMS for evaluation of falling, found down
at facility, unable to get up. She notes increased urinary frequency and given OP abx. UA suggestive of UTI. Repeat CXR remains similar but proBNP elevated from 2490 to 7530. O2 >90% she is placed on 5L satting 98%. We are consulted for eval.
Acute hypercarbic respiratory failure
Acute on chronic CHF exacerbation-reduced EF
COPD suspected with mild acute exacerbation
SOB
Hyperglycemia
Hyponatremia
Mild anemia-hemoglobin 10
Lactic acidosis
Conditions present prior to admission:
Possible underlying chronic ILD-suspect very mild per CT 05/15/2024
HTN
NIDDM
Breast Ca with Radiation Therapy s/p Left Mastectomy
GERD/Hiatal Hernia
Carotid stenosis, right s/p stent
History of seizures
Hypercholesterolemia
History of stroke 2020
RLS
UTIs
Hysterectomy
History of bowel resection
Back surgery
Iron Deficiency
Congenital malformation of esophagus
Postmenopausal atrophic vaginitis
Gait difficulty
Dysphagia
Former smoker
Moderate aortic stenosis
Diastolic dysfunction
Reduced EF-40%-was 60%
Mild bronchiectasis
Plan
Respiratory decompensation likely multifactorial including fluid overload/CHF and likely has a component of ILD as well as COPD-significant wheezing and rhonchi on exam-improved with diuresis and steroids
Supplemental oxygen as needed-attempt to wean-now on room air-97% saturation
Assess discharge supplemental oxygen needs
Incentive spirometry
Mucolytic's
Antitussives
Aspiration precautions
Nebulizers continue
Prednisone 30 mg-further reduce to 20 mg for 3 days and then 10 mg for 3 days and then discontinue
Speech therapy evaluation 05/14/2014 noted-recommending video swallow, regular diet thin liquids and consider GI consultation
ILD noted on prior imaging--this is not consistent with UIP pattern (no significant honeycombing, some traction bronchiectasis) -- IPF diagnosis on her record is incorrect.
Review cultures
Empiric antibiotics-now on Omnicef
Continue with gentle diuresis-positive fluid balance
Monitor renal function, electrolytes, intake/output, lower extremity edema and weight
Replace electrolytes as needed
Cardiology following-correspondence reviewed
Echocardiogram 05/15/2024-EF 40-45%, stage II diastolic dysfunction, mild mitral regurgitation, moderate aortic stenosis
proBNP continues to be elevated
Possible cardiac catheterization-Patient declined
DVT prophylaxis-on Eliquis
GI prophylaxis-on pantoprazole
Nutrition
Early mobilization
Reviewed with nursing
Currently on room air, less wheezing, decrease prednisone to 20 mg with taper outlined above-pulmonary will sign off
Outpatient pulmonary [id number] need PFTs especially in light of amiodarone load and maintenance going forward
Would repeat CT again as OP once CHF treated
Diagnostic Data
CXR 09/07/24-Mild to moderate diffuse pulmonary interstitial edema. Small left pleural effusion.
Chest X-Ray: 05/14/24- Suspect diffuse interstitial pneumonitis and component of pulmonary vascular congestion. Cannot rule out superimposed left basilar pneumonia and/or underlying chronic interstitial changes.
09/26/23- No acute disease of the chest. Large hiatal hernia. Enlarged.
CT chest 05/15/2024-mild reticular interstitial thickening at the lung bases with mild basilar bronchiectasis suggesting mild interstitial fibrosis, superimposed interstitial pneumonitis suspected with small bilateral pleural effusions and severe
coronary artery calcifications and large hiatal hernia
Echo: 04/23/22- 1. Small left ventricle with moderate left ventricular hypertrophy and preserved systolic function, EF 60-65%
2. Thickened mitral leaflets, mitral annular calcification, trace mitral regurgitation, and left atrial dilatation
3. Mild aortic stenosis, peak/mean gradient 28/15 mmHg, aortic valve area 1.5 cm2
4. Normal right heart with mild pulm hypertension, 36 mmHg systolic
5. Small patent foramen ovale
Echocardiogram 05/15/2024-EF 40-45%, stage II diastolic dysfunction, mild mitral regurgitation, moderate aortic stenosis
-----
Subjective Data
-
Date of Service:
Date of Service: September 15, 2024
Chief Complaint: Pulmonary Follow Up (Acute hypercapnic respiratory failure.) and Dyspnea Follow Up
Subjective:
Feels better, less cough, complains of some right sided musculoskeletal pain, no abdominal pain
Review of Systems
General: Other (Per HPI)
Objective Data
Data Reviewed
Vital Signs / I&O:
Vital Signs
Temp Pulse Resp BP Pulse Ox
97.6 F 92 20 128/82 97
09/15/24 07:30 09/15/24 09:00 09/15/24 07:58 09/15/24 09:00 09/15/24 07:58
Intake and Output
09/14/24 09/15/24 09/16/24
06:59 06:59 06:59
Intake Total 1440 / 1440 1120 / 1120
Balance 1440 / 1440 1120 / 1120
SaO2: 97
Nasal Cannula flow liters per minute: 1
Physical Exam
General: Respiratory Distress (n) and Comfortable
HEENT: Normocephalic
Cardiovascular: Regular Rhythm
Respiratory: Wheeze (Expiratory), Crackles (Basilar), Rhonchi ( expiratory), Non-Labored Respirations, Accessory Resp Muscle Use (n) and Stridor (n)
GI: Soft, Non Distended and Non Tender
Neurology: Awake, Alert and No Motor Deficits
Skin: Warm, Good Color, Cyanosis (n) and Jaundice (n)
Labs/Micro/Reports
Lab Data
09/15/24 07:55
09/15/24 07:55
Microbiology
09/13/24 01:23 Feces/Stool - Final
Negative for Norovirus GI and GII.
09/08/24 03:56 Blood/Venous Blood Culture - Final
No Growth - Final Report
09/08/24 03:56 Blood/Venous Blood Culture - Final
No Growth - Final Report
09/07/24 23:05 Blood/Venous Blood Culture - Final
No Growth - Final Report
09/07/24 23:05 Blood/Venous Blood Culture - Final
No Growth - Final Report
[2024-09-15 11:19] LABS: Glucose - Point of Care 192 mg/dl (70-99)
[2024-09-15] MEDS: NOVOLOG FLEXPEN 6 UNITS SC ×2 (12:42→17:07)
--- NOTE | 2024-09-15 13:23 | W.PN.HOSP.TC ---
Today's Communication/Plan
-
Monitor vital signs see plan
Titrate insulin
Continue with Lasix, steroids
lidocaine
dc planning
Assessment / Plan
Assessment / Plan
89yo F with pulmonary fibrosis, CHF, DM, CVA, CAD, recurrent UTI came after she fell at home since she was not steady on her feet. Found UTI, CHF exacerbation, that confirmed on CT without radiographic signs of the pneumonia. Undergoing diuresis,
planned for [facility] this admission by Cardio
A/P:
#Acute hypoxic respiratory failure
multifactorial 2/2 CHF and cannot exclude COPD exacerbation since patient is wheezing
Acute on chronic HFrEF exacerbation
#Ischemic CM
#Paroxysmal Afib
#Non-ischemic myocardial injury
LAsix, daily weight, I&O
cont rate control
Cardiology consult: plan for left cardiac cath as patient previously was recommended but declined. Now it appears that patient is declining catheterization again. Spoke with granddaughter over the phone. It appears the patient does not want any
invasive procedures.
Elevated troponin, suspect nonischemic myocardial injury
Repeat Echo: EF 40-45% with Inferior, inferolateral, anterior and apical hypokinesis, stage 2 diastolic dysfunction, mild MS and MR, mild pulmonary HTN with mild-moderate TR. moderate-severe
Given that she is still feeling short of breath, pulmonary started prednisone. Continue to monitor
cw IV lasix
cw duonebs standing and as needed
#UTI
was on rocephin, ucx grew ecoli
change abx to cefdinir to finish course
#DM type 2 with neuropathy
Accuchecks, Insulin SS, DM diet
started on long-acting and short acting insulin given hyperglycemia secondary to steroids
Mild hyponatremia
Monitor
#Fall 2/[address] head without bleeding or hematoma
PT/OT rec SNF
#moderate hiatal hernia
asymptomatic, but adjusted atelectasis might contribute to dyspnea. Outpatient GenSx eval
#Atelectasis
Incentive spirometry
#DISH
#Chronic T11 compression Fx
PCP follow up
Tylenol
PT
#Hyponatremia
#hyperkalemia
most likely 2/2 CHF
follow urinary studies and cont diuresis with FR
monitor BMP - mild hyperkalemia and sodium improving
#Mastoid cell opacification
no ear pain
outpatient ENT
#Hx of possible ILD
Pulm following; now on steroids
No signs of pneumonia on XR
#Hx of CVA
#Carotis stenosis s/p CEA
#Anxiety d/o
cont home meds
#Mild anemia
follow CBC
outpatient w/u by PCP
DVT ppx Eliquis
DNR/DNI
General: Comfortable
HEENT: Normocephalic
Respiratory: Rales and Crackles
Cardiac: Regular Rhythm
GI: Soft, Nontender and Nondistended
Musculoskeletal: No Clubbing, No Cyanosis and No Edema
Neuro: Awake, Alert, Oriented and AO x 3
Psych: Calm and Apparent Dementia
Anticipated Discharge: Within 24 hours
Subjective/Interval History
-
Date of Service: September 15, 2024
Denies nausea
Objective Data
-
Labs:
Laboratory Results
09/15/24
07:55
WBC 13.3 H
Hgb 11.3 L
Hct 33.4 L
Plt Count 328
Sodium 132 L
Potassium 4.2
Chloride 91 L
Carbon Dioxide 27
BUN 40 H
Creatinine 0.8
Glucose 144 H
Calcium 9.9
Vital Signs:
Vital Signs
Temp Pulse Resp BP Pulse Ox
97.6 F 78 16 107/59 96
09/15/24 11:47 09/15/24 12:09 09/15/24 12:09 09/15/24 11:47 09/15/24 11:47
I&O
09/14/24 09/15/24 09/16/24
06:59 06:59 06:59
Intake Total 1440 / 1440 1120 / 1120
Balance 1440 / 1440 1120 / 1120
--- NOTE | 2024-09-15 13:28 | CM ---
Addendum entered by Nieves Morton 09/15/24 16:45:
Bed is available on Wednesday please call Georgiana [phone] in admissions at [facility], patient needs a COVID test, [facility] , Dr Kulkarni
Original Note:
utilization management manager spoke with patient and patient's daughter today, and plan is for skilled placement, per patient's daughter (who recently had hip surgery), patient needs to independent to return to home. Patient wants to go to [facility], per Georgiana
in admissions they may have a bed for patient on Wednesday or Wednesday, she will be available to discuss with weekend trimming caser over the phone and provide NPI numbers for Auth.
Plan; Skilled placement at [facility] when stable for discharge. Needs Auth.
--- NOTE | 2024-09-15 13:40 | W.PN.UPDATE ---
Update Note
Progress Note Update
patient has diuresed and now back on po lasix 40mg BID. Cr remains stable. on room air. OP cardiac follow up arranged. will sign off, please call with questions.
[2024-09-15] MEDS: XANAX 0.25 MG PO ×2 (13:57→19:58)
[2024-09-15 16:50] LABS: Glucose - Point of Care 249 mg/dl (70-99)
[2024-09-15] MEDS: REQUIP 0.5 MG PO (17:05)
[2024-09-15] MEDS: NOVOLOG FLEXPEN-LOW RESISTANCE 2 UNITS SC (17:06)
[2024-09-15] MEDS: LIPITOR 20 MG PO (19:46)
[2024-09-15] MEDS: LIDOCAINE 4% PATCH 1 PATCH TOPICAL (19:49)
[2024-09-15] MEDS: MELATONIN 5 MG PO (19:49)
[2024-09-15 21:23] LABS: Glucose - Point of Care 373 mg/dl (70-99)
[2024-09-15] MEDS: LANTUS 0.14 UNITS SC (21:41)
[2024-09-15] MEDS: TESSALON PERLES 100 MG PO (23:47)
[2024-09-16] VITALS (7 sets, daily range): BP systolic 125–163; BP diastolic 64–80; PULSE 75–80
[2024-09-16 07:43] LABS: % Basophils 0.1 % (0-2); % Eosinophils 0.2 % (0-6); % Immature Granulocytes 0.5 % (0-0.5); % Lymphocytes 16.2 % (20.5-51.1); % Monocytes 8.5 % (1.7-9.3); % Neutrophils 74.5 % (42.2-75.2); Absolute Immature Granulocytes 0.1 10^3/uL (0-0.05); Absolute Lymphocytes 1.7 10^3/uL (1.2-3.4); Absolute Monocytes 0.9 10^3/uL (0.1-0.6); Hematocrit 34.3 % (37.0-47.0); Hemoglobin 11.6 g/dL (12.0-16.0); Mean Corp Hgb Conc. 33.8 g/dL (33.0-37.0); Mean Corpuscular Hgb 28.7 pg (27.0-31.0); Mean Corpuscular Volume 84.9 fL (81.0-99.0); Mean Platelet Volume 9.5 fL (7.4-10.4); Nucleated Red Blood Cells % 0 %; Platelet Count 314 10^3/uL (130-400); Red Blood Cell Count 4.04 10^6/uL (4.20-5.40); Red Cell Dist. Width 14.6 % (11.5-14.5); White Blood Cell Count 10.7 10^3/uL (4.8-10.8)
[2024-09-16 08:03] LABS: Glucose - Point of Care 141 mg/dl (70-99)
[2024-09-16] MEDS: DUONEB 3 ML INH ×3 (08:04→20:12)
[2024-09-16 08:13] LABS: Blood Urea Nitrogen 43 mg/dl (7-17); Calcium 9.5 mg/dl (8.4-10.2); Carbon Dioxide 27 mmol/L (22-30); Chloride 91 mmol/L (98-107); Glucose 150 mg/dl (70-99); Potassium 4.6 mmol/L (3.5-5.1); Sodium 128 mmol/L (135-145); eGFR > 60.00
[2024-09-16] MEDS: NOVOLOG FLEXPEN 6 UNITS SC (08:31)
[2024-09-16] MEDS: NOVOLOG FLEXPEN-LOW RESISTANCE SC (08:31)
[2024-09-16] MEDS: TOPROL XL 12.5 MG PO (08:35)
[2024-09-16] MEDS: PROTONIX 20 MG PO (08:35)
[2024-09-16] MEDS: PLAVIX 75 MG PO (08:35)
[2024-09-16] MEDS: OCUVITE SOFTGEL 1 CAP PO ×2 (08:36→19:34)
[2024-09-16] MEDS: PACERONE 200 MG PO (08:36)
[2024-09-16] MEDS: MUCINEX 1200 MG PO ×2 (08:36→19:34)
[2024-09-16] MEDS: DELTASONE 20 MG PO (08:37)
[2024-09-16] MEDS: ELIQUIS 2.5 MG PO ×2 (08:37→19:34)
[2024-09-16] MEDS: LASIX 40 MG PO ×2 (08:40→16:55)
[2024-09-16] MEDS: TYLENOL 650 MG PO ×2 (08:44→19:34)
[2024-09-16 10:40] LABS: Glucose - Point of Care 180 mg/dl (70-99)
[2024-09-16] MEDS: AMARYL 2 MG PO (10:48)
[2024-09-16] MEDS: TESSALON PERLES 100 MG PO ×2 (10:53→19:33)
[2024-09-16] MEDS: NOVOLOG FLEXPEN 2 UNITS SC ×2 (12:52→17:26)
[2024-09-16] MEDS: NOVOLOG FLEXPEN-LOW RESISTANCE 1 UNITS SC (12:52)
--- NOTE | 2024-09-16 13:48 | W.PN.HOSP.TC ---
Today's Communication/Plan
-
monitor vitals
see plan
cw prednisone
cw lasix
dc planning; per CM has bed tomorrow
Assessment / Plan
Assessment / Plan
89yo F with pulmonary fibrosis, CHF, DM, CVA, CAD, recurrent UTI came after she fell at home since she was not steady on her feet. Found UTI, CHF exacerbation, that confirmed on CT without radiographic signs of the pneumonia. Undergoing diuresis,
planned for [facility] this admission by Cardio
A/P:
#Acute hypoxic respiratory failure
multifactorial 2/2 CHF and cannot exclude COPD exacerbation since patient is wheezing
Acute on chronic HFrEF exacerbation
#Ischemic CM
#Paroxysmal Afib
#Non-ischemic myocardial injury
LAsix, daily weight, I&O
cont rate control
Cardiology consult: plan for left cardiac cath as patient previously was recommended but declined. Now it appears that patient is declining catheterization again. Spoke with granddaughter over the phone. It appears the patient does not want any
invasive procedures.
Elevated troponin, suspect nonischemic myocardial injury
Repeat Echo: EF 40-45% with Inferior, inferolateral, anterior and apical hypokinesis, stage 2 diastolic dysfunction, mild MS and MR, mild pulmonary HTN with mild-moderate TR. moderate-severe
Given that she is still feeling short of breath, pulmonary started prednisone. Continue to monitor
cw lasix
cw duonebs standing and as needed
reduce prednisone to 20 mg for 3 days and then 10 mg for 3 days and then discontinue
#UTI
was on rocephin, ucx grew ecoli
change abx to cefdinir to finish course; finished abx course
#DM type 2 with neuropathy
Accuchecks, Insulin SS, DM diet
started on long-acting and short acting insulin given hyperglycemia secondary to steroids
Mild hyponatremia
Monitor
#Fall 2/[address] head without bleeding or hematoma
PT/OT rec SNF
#moderate hiatal hernia
asymptomatic, but adjusted atelectasis might contribute to dyspnea. Outpatient GenSx eval
#Atelectasis
Incentive spirometry
#DISH
#Chronic T11 compression Fx
PCP follow up
Tylenol
PT
#Hyponatremia
#hyperkalemia
most likely 2/2 CHF
follow urinary studies and cont diuresis with FR
monitor BMP - mild hyperkalemia and sodium improving
#Mastoid cell opacification
no ear pain
outpatient ENT
#Hx of possible ILD
Pulm following; now on steroids
No signs of pneumonia on XR
#Hx of CVA
#Carotis stenosis s/p CEA
#Anxiety d/o
cont home meds
#Mild anemia
follow CBC
outpatient w/u by PCP
DVT ppx Eliquis
DNR/DNI
General: Comfortable
HEENT: Normocephalic
Respiratory: Rales and Crackles
Cardiac: Regular Rhythm
GI: Soft, Nontender and Nondistended
Musculoskeletal: No Clubbing, No Cyanosis and No Edema
Neuro: Awake, Alert, Oriented and AO x 3
Psych: Calm and Apparent Dementia
Anticipated Discharge: > 48 hours
Subjective/Interval History
-
Date of Service: September 16, 2024
denies pain
Objective Data
-
Labs:
Laboratory Results
09/16/24
07:18
WBC 10.7
Hgb 11.6 L
Hct 34.3 L
Plt Count 314
Sodium 128 L
Potassium 4.6
Chloride 91 L
Carbon Dioxide 27
BUN 43 H
Creatinine 0.8
Glucose 150 H
Calcium 9.5
Vital Signs:
Vital Signs
Temp Pulse Resp BP Pulse Ox
97.5 F 77 18 149/71 96
09/16/24 11:26 09/16/24 11:26 09/16/24 11:26 09/16/24 11:26 09/16/24 11:26
I&O
09/15/24 09/16/24 09/17/24
06:59 06:59 06:59
Intake Total 1120 / 1120 720 / 720
Balance 1120 / 1120 720 / 720
[2024-09-16] MEDS: DUONEB INH (15:30)
[2024-09-16] MEDS: REQUIP 0.5 MG PO (16:56)
[2024-09-16 17:23] LABS: Glucose - Point of Care 278 mg/dl (70-99)
[2024-09-16] MEDS: LIPITOR 20 MG PO (17:25)
[2024-09-16] MEDS: NOVOLOG FLEXPEN-LOW RESISTANCE 3 UNITS SC (17:26)
[2024-09-16] MEDS: LIDOCAINE 4% PATCH 1 PATCH TOPICAL (19:33)
[2024-09-16] MEDS: XANAX 0.25 MG PO (20:57)
[2024-09-16] MEDS: MELATONIN 5 MG PO (20:58)
[2024-09-16 21:20] LABS: Glucose - Point of Care 173 mg/dl (70-99)
[2024-09-16] MEDS: LANTUS 0.14 UNITS SC (21:22)
[2024-09-17] MEDS: TYLENOL 650 MG PO ×2 (06:32→14:03)
[2024-09-17 07:37] VITALS: BP 140/74
[2024-09-17] MEDS: AMARYL 2 MG PO (07:39)
[2024-09-17] MEDS: DELTASONE 20 MG PO (07:39)
[2024-09-17] MEDS: PACERONE 200 MG PO (07:39)
[2024-09-17] MEDS: PLAVIX 75 MG PO (07:40)
[2024-09-17] MEDS: OCUVITE SOFTGEL 1 CAP PO (07:40)
[2024-09-17] MEDS: MUCINEX 1200 MG PO (07:40)
[2024-09-17] MEDS: LASIX 40 MG PO (07:40)
[2024-09-17] MEDS: PROTONIX 20 MG PO (07:41)
[2024-09-17] MEDS: TOPROL XL 12.5 MG PO (07:41)
[2024-09-17] MEDS: ELIQUIS 2.5 MG PO (07:41)
[2024-09-17] MEDS: DUONEB 3 ML INH ×2 (07:54→11:31)
[2024-09-17 07:58] LABS: Glucose - Point of Care 127 mg/dl (70-99)
[2024-09-17] MEDS: NOVOLOG FLEXPEN-LOW RESISTANCE SC (08:04)
[2024-09-17] MEDS: NOVOLOG FLEXPEN 2 UNITS SC ×2 (08:53→11:52)
[2024-09-17 09:02] VITALS: BP 103/72; BP 104/51; BP 105/54; PULSE 76
[2024-09-17 09:04] VITALS: BP 105/54
[2024-09-17 09:28] LABS: COVID-19 Antigen Negative (Negative)
--- NOTE | 2024-09-17 10:44 | W.PN.HOSP.TC ---
Today's Communication/Plan
-
monitor vitals
see plan
Continue with Lasix
Prednisone with taper
Discharged today to SNF
Discussed with granddaughter over the phone
Time of discharge 38 minutes
Assessment / Plan
Assessment / Plan
89yo F with pulmonary fibrosis, CHF, DM, CVA, CAD, recurrent UTI came after she fell at home since she was not steady on her feet. Found UTI, CHF exacerbation, that confirmed on CT without radiographic signs of the pneumonia. Undergoing diuresis,
planned for [facility] this admission by Cardio
A/P:
#Acute hypoxic respiratory failure
multifactorial 2/2 CHF and cannot exclude COPD exacerbation since patient is wheezing
Acute on chronic HFrEF exacerbation
#Ischemic CM
#Paroxysmal Afib
#Non-ischemic myocardial injury
LAsix, daily weight, I&O
cont rate control
Cardiology consult: plan for left cardiac cath as patient previously was recommended but declined. Now it appears that patient is declining catheterization again. Spoke with granddaughter over the phone. It appears the patient does not want any
invasive procedures.
Elevated troponin, suspect nonischemic myocardial injury
Repeat Echo: EF 40-45% with Inferior, inferolateral, anterior and apical hypokinesis, stage 2 diastolic dysfunction, mild MS and MR, mild pulmonary HTN with mild-moderate TR. moderate-severe
Given that she is still feeling short of breath, pulmonary started prednisone. Continue to monitor
cw lasix
cw duonebs standing and as needed
reduce prednisone to 20 mg for 3 days and then 10 mg for 3 days and then discontinue
#UTI
was on rocephin, ucx grew ecoli
change abx to cefdinir to finish course; finished abx course
#DM type 2 with neuropathy
Accuchecks, Insulin SS, DM diet
started on long-acting and short acting insulin given hyperglycemia secondary to steroids
Mild hyponatremia
Monitor
#Fall 2/[address] head without bleeding or hematoma
PT/OT rec SNF
#moderate hiatal hernia
asymptomatic, but adjusted atelectasis might contribute to dyspnea. Outpatient GenSx eval
#Atelectasis
Incentive spirometry
#DISH
#Chronic T11 compression Fx
PCP follow up
Tylenol
PT
#Hyponatremia
#hyperkalemia
most likely 2/2 CHF
follow urinary studies and cont diuresis with FR
monitor BMP - mild hyperkalemia and sodium improving
#Mastoid cell opacification
no ear pain
outpatient ENT
#Hx of possible ILD
Pulm following; now on steroids
No signs of pneumonia on XR
#Hx of CVA
#Carotis stenosis s/p CEA
#Anxiety d/o
cont home meds
#Mild anemia
follow CBC
outpatient w/u by PCP
DVT ppx Eliquis
DNR/DNI
General: Comfortable
HEENT: Normocephalic
Respiratory: Rales and Crackles
Cardiac: Regular Rhythm
GI: Soft, Nontender and Nondistended
Musculoskeletal: No Clubbing, No Cyanosis and No Edema
Neuro: Awake, Alert, Oriented and AO x 3
Psych: Calm and Apparent Dementia
Anticipated Discharge: Today
Subjective/Interval History
-
Date of Service: September 17, 2024
denies pain
Objective Data
-
Labs:
Laboratory Results
09/17/24
10:38
WBC Pending
Hgb Pending
Hct Pending
Plt Count Pending
Sodium Pending
Potassium Pending
Chloride Pending
Carbon Dioxide Pending
BUN Pending
Creatinine Pending
Glucose Pending
Calcium Pending
Vital Signs:
Vital Signs
Temp Pulse Resp BP Pulse Ox
98.7 F 73 16 140/74 96
09/17/24 07:37 09/17/24 07:56 09/17/24 07:56 09/17/24 07:41 09/17/24 07:56
I&O
09/16/24 09/17/24 09/18/24
06:59 06:59 06:59
Intake Total 720 / 720 240 / 240
Balance 720 / 720 240 / 240
--- NOTE | 2024-09-17 10:52 | CM ---
Addendum entered by Yaquelin Vazquez 09/17/24 11:44:
CM received call from patients daughterParvin, reviewed IMM, agreeable to discharge. Daughter requesting for nurse to call to provide update on patient status, TT to nurse with request.
Addendum entered by Yaquelin Vazquez 09/17/24 11:24:
[facility]
Report: [phone]

Original Note:
CM spoke with NANCY, auth approved #[id number], 09/17-09/21, next review 09/21, call post acute team for review , VM left for [place] at [facility]. Ambulance auth approved #[id number]. Patient seen bedside, aware of discharge plan,
requesting call to daughterParvin. VM left for Parvin with discharge plan and to review IMM. CM will continue to follow for all discharge planning needs.
Plan; [facility] SNF, 4:00 p.m. ambulance transport
[2024-09-17 10:53] LABS: % Basophils 0.2 % (0-2); % Eosinophils 0.3 % (0-6); % Immature Granulocytes 0.8 % (0-0.5); % Lymphocytes 7.2 % (20.5-51.1); % Neutrophils 87.5 % (42.2-75.2); Absolute Immature Granulocytes 0.1 10^3/uL (0-0.05); Absolute Lymphocytes 0.8 10^3/uL (1.2-3.4); Absolute Monocytes 0.4 10^3/uL (0.1-0.6); Absolute Neutrophils 9.7 10^3/uL (1.4-6.5); Hematocrit 34.4 % (37.0-47.0); Hemoglobin 11.6 g/dL (12.0-16.0); Mean Corp Hgb Conc. 33.7 g/dL (33.0-37.0); Mean Corpuscular Hgb 28.9 pg (27.0-31.0); Mean Corpuscular Volume 85.8 fL (81.0-99.0); Nucleated Red Blood Cells % 0 %; Platelet Count 313 10^3/uL (130-400); Red Blood Cell Count 4.01 10^6/uL (4.20-5.40); Red Cell Dist. Width 14.8 % (11.5-14.5); White Blood Cell Count 11.1 10^3/uL (4.8-10.8)
--- NOTE | 2024-09-17 10:54 | W.DCSUMMARY ---
Discharge Summary
Discharge Data
Date of Admission: 09/08/24
Date of Discharge: 09/17/24
-
Pending Results: No
Hospital Course
89-year-old female with past medical history of pulmonary fibrosis, CHF, DM, CVA, CAD, recurrent UTI came to the hospital with acute hypoxic respiratory failure which was likely thought was multifactorial secondary to congestive heart failure and
possible COPD exacerbation. Patient was also found to have ischemic cardiomyopathy. Cardiology recommended patient to undergo cardiac catheterization however patient refused. Patient also had acute on chronic congestive heart failure for which
she was treated initially with IV Lasix which was later transitioned to oral Lasix. Echocardiogram was done which showed EF of 40 to 45% with inferior, inferolateral and anterior and apical hypokinesis. Patient was also seen by pulmonary on this
hospitalization and was started on steroids. On discharge patient was discharged with prednisone with taper. She also had E. coli urinary tract infection which was treated with antibiotics. Patient finished treatment of her urinary tract
infection prior to discharge. With steroids patient also had elevated blood sugars so she was started on insulin which was continued on discharge with instructions to taper off insulin once patient is off steroids. Patient was also evaluated by
physical therapy who recommended SNF. Once her symptoms continue to improve, she was then discharged to rehab with instructions to follow-up with all her physicians outpatient.
Discharge Plan
-
Patient Disposition: Long-Term/SNF
Discharge Diagnosis/Procedures: Acute hypoxic respiratory failure multifactorial secondary to congestive heart failure and COPD exacerbation
Suspected interstitial lung disease
Ischemic cardiomyopathy
Paroxysmal atrial fibrillation
Atelectasis
Hyperglycemia secondary to steroids
Hiatal hernia
Diet: Diabetic, Carb Controlled and Restrict fluids to 48 oz
Activity: With assistance and As tolerated
Driving Restrictions: Not until seen by your Dr
Bathing Restrictions: None
Activity Restrictions/Additional Instructions:
Please titrate the insulin when she is off steroids.
Prednisone 20 mg daily for another 2 days and then decrease to 10 mg daily for 3 days and then stop
Instructions: *DCA Heart Failure Instructions
Referrals:
Rupesh Tuttle MD [Active] - in one to two weeks
Karri Mercado MD [Active] - in one to two weeks
Leonel Casey MD [Active] -
Brandon Garcia MD [Active] -
Nuzhat Zhu DO [Family Provider] -
Prescriptions:
New
prednisone 10 mg Tablet
20 mg PO DAILY Qty: 0 0RF
Rx Instructions:
20 mg daily for another 2 days then decrease to 10 mg daily for 3 days and then stop
alprazolam 0.5 mg Tablet
0.25 mg PO BIDPRN PRN (Reason: Anxiety) Qty: 6 0RF
Eliquis 2.5 mg Tablet
2.5 mg PO BID Qty: 0 0RF
furosemide 40 mg Tablet
40 mg PO BID AT 0800,1600 Qty: 0 0RF
atorvastatin 20 mg Tablet
20 mg PO QPM Qty: 0 0RF
lidocaine 4 % Adhesive Patch,Medicated
1 patch topical HS Qty: 0 0RF
insulin aspart U-100 100 unit/mL (3 mL) Insulin Pen
2 unit SC AC Qty: 0 0RF
Insulin Glargine Lantus [Lantus] 14 UNITS
Subcutaneous Insulin Syringe [Syringe-Insulin] 0 UNIT
As Directed mls/hr SC HS
Ordered By: Merrill Emanuel MD
Last Taken: 09/16/24 21:22 0.14 mls
Continued
acetaminophen 325 MG tablet
650 mg PO Q4HPRN PRN (Reason: DOUGLAS, mild pain, or temp >100.4F) 0RF
sennosides [senna] 8.6 MG tablet
8.6 mg PO BIDPRN PRN (Reason: constipation)
pantoprazole 40 MG tablet,delayed release (DR/EC)
20 mg PO DAILY
PreserVision AREDS 1 CAP capsule
1 cap PO BID
clopidogrel 75 MG tablet
75 mg PO DAILY
amiodarone 200 mg Tablet
200 mg PO DAILY Qty: 30 0RF
glimepiride 2 mg Tablet
2 mg PO DAILY Qty: 30 0RF
docusate sodium 100 mg Capsule
100 mg PO BID Qty: 60 0RF
ipratropium-albuterol 0.5 mg-3 mg(2.5 mg base)/3 mL Solution For Nebulization
3 ml inhalation R Q4HPRN PRN (Reason: sob or wheezing) Qty: 90 0RF
metoprolol succinate 25 mg Tablet Extended Release 24 Hr
12.5 mg PO DAILY Qty: 30 0RF
magnesium oxide 500 mg magnesium Tablet
500 mg PO BID Qty: 60 0RF
benzonatate 100 mg Capsule
100 mg PO TIDPRN PRN (Reason: cough) Qty: 10 0RF
guaifenesin 600 mg Tablet Extended Release 12hr
1,200 mg PO Q12 Qty: 60 0RF
methenamine hippurate 1 gram Tablet
1 g PO BID
apixaban 5 mg Tablet
5 mg PO BID
ropinirole 0.5 mg Tablet
0.5 mg PO HS
Discontinued
alprazolam 0.5 mg tablet
0.5 mg PO BIDPRN PRN (Reason: Anxiety)
furosemide 20 mg Tablet
20 mg PO DAILY Qty: 30 0RF
Discharge Orders:
Discharge Patient (As Directed); Ordered 09/17/24
Ordered By: Merrill Emanuel
Discharge Date and Time
Print Language: TAJIK
[2024-09-17 11:15] LABS: Glucose - Point of Care 356 mg/dl (70-99)
[2024-09-17 11:15] LABS: Blood Urea Nitrogen 41 mg/dl (7-17); Calcium 9.2 mg/dl (8.4-10.2); Carbon Dioxide 25 mmol/L (22-30); Chloride 90 mmol/L (98-107); Glucose 318 mg/dl (70-99); Potassium 4.5 mmol/L (3.5-5.1); Sodium 127 mmol/L (135-145); eGFR > 60.00
[2024-09-17] MEDS: NOVOLOG FLEXPEN-LOW RESISTANCE 5 UNITS SC (11:52)
--- NOTE | 2024-09-17 13:33 | PTCARENOTE ---
report given to nurse Vicki
[2024-09-17] MEDS: XANAX 0.25 MG PO (14:04)
[2024-09-17 15:05] VITALS: BP 112/54
[2024-09-17] MEDS: DUONEB INH (15:37)
--- NOTE | 2024-09-18 11:06 | W.HF.CON ---
Heart Failure
- LV Function
Left ventricular function study result: LV Ejection fraction 41-49%
Ejection Fraction Percentage: 40-45
- ARNI
Patient already on ARNI: No
Heart Failure ARNI Not Indicated: LV Ejection Fraction >/= 40%
- ACEI/ARB
Patient already on ACEI/ARB: No
Heart Failure ACEI/ARB Not Indicated: LV Ejection Fraction > 40%
- Beta Mary
Patient already on Evidence Based Beta Mary: Yes
- Mineralocorticord Receptor Antagonist
Patient already on MRA: No
Heart Failure MRA Not Indicated: LV Ejection Fraction > 40%
- SGLT-2 Inhibitor
Patient already on SGLT-2 Inhibitor: No
Heart Failure SGLT-2 Inhibitor Not Indicated: LV Ejection Fraction >40%
- Afib Anticoagulation
Patient already on Anticoagulation for Afib: Yes
- NYHA CHF Classification
NYHA CHF Classification Level: Class III - Symptoms w/ min exertion, interferes w/ nml daily activity (COPD, mod/severe )
- ACC/AHA Stage
ACC/AHA Stage: Stage C: Symptomatic Heart Failure
== END 2024-09-17 16:37 | DRG 291 ==
LOC: 4 WEST ACU 01:40
PROVIDERS: Emergency Medicine; Internal Medicine; Physician Assistant; ADMITTING PHYSICIAN Hospitalist; ATTENDING PHYSICIAN Internal Medicine; CONSULT PHYSICIAN Internal Medicine; CONSULT PHYSICIAN Internal Medicine Cardiovascular Disease; EMERGENCY PHYSICIAN Emergency Medicine; FAMILY PHYSICIAN Family Medicine
DX: I11.0 Hypertensive heart disease with heart failure (principal); I50.23 Acute on chronic systolic (congestive) heart failure; J96.01 Acute respiratory failure with hypoxia; J96.02 Acute respiratory failure with hypercapnia; J44.1 Chronic obstructive pulmonary disease with (acute) exacerbation; J98.11 Atelectasis; E87.1 Hypo-osmolality and hyponatremia; E87.20 Acidosis, unspecified; N39.0 Urinary tract infection, site not specified; J84.10 Pulmonary fibrosis, unspecified; I25.5 Ischemic cardiomyopathy; I48.0 Paroxysmal atrial fibrillation; E11.65 Type 2 diabetes mellitus with hyperglycemia; T38.0X5A Adverse effect of glucocorticoids and synthetic analogues, initial encounter; K44.9 Diaphragmatic hernia without obstruction or gangrene; B96.20 Unspecified Escherichia coli [E. coli] as the cause of diseases classified elsewhere; I5A Non-ischemic myocardial injury (non-traumatic)
CPT/HCPCS: 93308; 70450; 71045; 71250; 80048; 80053; 81003; 81015; 82570; 82947; 82962; 83036; 83605; 83735; 83880; 83935; 84300; 84484; 85025; 85027; 87040; 87077; 87086; 87186; 87502; 87798; 87811; 93005; 93321; 93325; 94640; 94660; 96374; 96375; 97116; 97163; 97167; 97530; 97535; 99285

== ENCOUNTER 2025-05-22 15:43 | Inpatient (IN) | payer OTHER, SELFPAY ==
[2025-05-22] VITALS (7 sets, daily range): BP systolic 106–156; BP diastolic 49–101; BMI 20.8; BMI 19.6
--- NOTE | 2025-05-22 12:30 | ED.GENMED ---
History of Present Illness
<Toñito Ortiz MD, Resident - Last Filed: 05/22/25 12:30>
General
Chief Complaint: Weakness
Time Seen by Provider: 05/22/25 12:30
<Norberto David MD - Last Filed: 05/23/25 06:14>
General
Source: patient
Exam Limitations: none
Nursing documentation reviewed up to this point in time: agreed with
History of Present Illness
History of Present Illness:
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 In addition, secondary to low sodium level
noted during routine blood work, Lasix has been discontinued for the past 2 weeks, at the recommendation of her primary care physician. Denies diarrhea. Denies abdominal pain. Denies chest pain. Denies fever or chills. Denies coughing. Per
daughter, who lives with the patient, patient with normally utilizes walker, has been noted to drag her right foot, more than usual. Patient has fallen multiple times at home without injury. Patient does take Eliquis chronically.
Past History
<Toñito Ortiz MD, Resident - Last Filed: 05/22/25 12:30>
Past History
ED Past Medical History: Cancer (breast, with radiation therapy), CVA (April 2021), HTN (labile), NIDDM, Seizures (Possible seizures, abnormal EEG), Psychiatric (major depression), Other (iron deficiency anemia, aortic stenosis, pulmonary
hypertension, seizure) and Other (hiatal hernia)
ED Past Surgical History: Appendectomy, Gynecological (hysterectomy) and Other (left-sided mastectomy 2018, right CEA)
Social History
Tobacco: Other (distant history)
Alcohol: None
Drug: None
Personal:
Living: with family
Employment: Retired
Family History
Family History: Other (reviewed and noncontributory)
Review of Systems
<Norberto David MD - Last Filed: 05/23/25 06:14>
Review of Systems
Allergies reviewed?: Yes
All Other Systems: ROS reviewed and negative except as documented in HPI and ROS
Constitutional: Reports no symptoms
Respiratory: Reports trouble breathing
Cardiac: Reports no symptoms
ABD/GI: Reports nausea; Denies abdominal pain or diarrhea
Musculoskeletal: Reports no symptoms; Denies edema
Skin: Reports no symptoms
Neurological: Reports dizzy and weakness
Phy Exam
<Norberto David MD - Last Filed: 05/23/25 06:14>
Physical Exam
Physical Exam:
Physical Exam
General: mild distress. afebrile. weak appearing
Head: nc/at. eomi
Neck: supple. no meningeal signs.
Heart: s1/s2 regular rate and rhythm. systolic ejection murmur
Lungs: no acute respiratory distress. clear bilaterally
Abdomen: normal bowel sounds. not tender.
Neuro: alert and oriented x 3. no focal neurological deficits. normal speech
Skin: no rash
Psychiatric: well kept. interactive and cooperative
Extremities: no edema. no calf tenderness.
Course
<Toñito Ortiz MD, Resident - Last Filed: 05/22/25 12:30>
Orders/Labs/Results
Orders:
Orders
05/22/25 12:33
Complete Blood Count/With Diff Urgent
Comprehensive Metabolic Panel Urgent
Magnesium Urgent
Comment: ADD ON
NT-proBNP Urgent
Serum Osmolality Urgent
Comment: ADD ON
Troponin I Urgent
Comment: ADD ON
05/22/25 12:53
Add On- LAB Urgent
Tests Added?: magnesium, troponin
CT Head W/o Iv Contrast Urgent
Comment:
Reason For Exam: dizziness/RLE weakness
Straight cath- Treatment ONCE
05/22/25 12:59
Electrocardiogram (*1) Urgent
Reason for Study: Vertigo / Dizzy
EKG- Treatment ONCE
05/22/25 13:17
Ondansetron Injectable [Zofran] 4 mg IV NOW STA
05/22/25 13:19
Add On- LAB Urgent
Tests Added?: serum osm
05/22/25 13:39
Urinalysis Reflex To Culture Urgent
Date Specimen was Collected: 05/22/25
Time Specimen was Collected: 13:25
Urine Microscopic Reflex Cult Urgent
Urine Osmolality Random [Osmolality, Random Urine] Urgent
Date Specimen was Collected: 05/22/25
Time Specimen was Collected: 13:25
Urine Sodium Urgent
Date Specimen was Collected: 05/22/25
Time Specimen was Collected: 13:25
Urine Culture Urgent
LEROY Source: U
Specimen Description:
Date Specimen was Collected: 05/22/25
Time Specimen was Collected: 13:25
05/22/25 14:39
CefTRIAXone [Rocephin] 1,000 mg IV NOW STA
05/22/25 15:13
CR Chest - 2 Views Stat
Comment:
Reason For Exam: sob
05/22/25 15:31
Admit/Transfer Patient As Directed
Co-Sign Provider:
Level of Care: Inpatient admission
Assign to:: Telemetry
Physician / Group: ko
Diagnosis: UTi
Reason for Telemetry: Arrhythmia
Date to Stop Telemetry: 05/25/25
Time to Stop Telemetry: 11:00
Reason for Hospitalization: UTI
Expected length of stay greater than two midnights?: Yes
ELOS- Estimated Length of Stay in days: 3
I certify the patient meets the requirements for IP care: Yes
PRN Pain Medication Management As Directed
May give lesser potent ordered pain med per pt: Yes
preference::
Protocol:: Medication orders for pain may be administered in a
manner that supports deferring to patient preference
when the pt is:
- Requesting an ordered lesser potent pain medication.
Least to most potent pain medications are defined
as: acetaminophen < NSAID < tramadol < opioids
(morphine, oxycodone, hydromorphone).
- Requesting a lesser dose of the same medication IF
ORDERED.
- Requesting a less intrusive route of administration
if both routes are prescribed by the provider (PO <
IV).
05/22/25 15:33
Code Status As Directed
Resuscitation Status: Do not resuscitate
Reached after discussion with pt or family/Healthcare POA: Yes
DNR Bracelet Application ONCE
05/22/25 17:36
Bisacodyl [Dulcolax] 10 mg RECTAL [id number] PRN
Dextrose 50%-Water [Dextrose 50% Syringe] 12.5 grams IV [id number] PRN
Docusate W/Senna [Senokot-S] 1 tablet PO BIDPRN PRN
Glucagon [GlucaGen] 1 mg IM PRN PRN
Insulin Aspart Corrective Low [Novolog Flexpen-Low Resistance] See Protocol SC AC
Polyethylene Glycol Powder [Miralax] 17 grams PO DAILYPRN PRN
05/22/25 17:36
Activity As Directed
Activity Level: As Tolerated
Bedside Glucose Monitoring As Directed
Frequency: AC&HS
Additional Instructions:: Change to q6h if pt on TPN, tube feeding or not eating
Intake/ Output As Directed
Frequency: Per unit guidelines
Vital Signs As Directed
Frequency: Per unit guidelines
Weight As Directed
Frequency: Daily
05/22/25 17:49
Alprazolam [Xanax] 0.25 mg PO BIDPRN PRN Anxiety
05/22/25 18:00
Troponin I Q6H
METFORMIN HCl [Glucophage] 500 mg PO BID AT 0800,1700
05/22/25 20:00
Apixaban [Eliquis] 2.5 mg PO BID
Magnesium Oxide 400 mg PO BID
Methenamine Hippurate [Hiprex] 1 gram PO BID
Vit C/Vit E/Lutein/Min/Stanton-3 [Ocuvite Softgel] 1 cap PO BID
05/22/25 22:00
Lidocaine [Lidocaine 4% Patch] 1 patch TOPICAL HS
Apply Lidocaine patch(s) to:: lower back
Melatonin 5 mg PO HS
Ropinirole [Requip] 0.5 mg PO HS
05/22/25 23:50
Troponin I Q6H
05/23/25 05:36
Troponin I Q6H
05/23/25 Breakfast
2200 calorie (18 carb) Diabetic
At Your Request: Full Participation
Does patient need a safe tray?: No
Fluid Restriction: 1200 mL/day (40 oz)
Cardiovascular Evaluation IN AM
Complete Blood Count/No Diff IN AM
Comprehensive Metabolic Panel IN AM
Glycohemoglobin (HgbA1c) IN AM
Magnesium IN AM
05/23/25 08:00
Amiodarone [Pacerone] 200 mg PO DAILY
Cholecalciferol (Vitamin D3) [VITAMIN D3 (cholecalciferol)] 25 mcg PO DAILY
Cyanocobalamin [Vitamin B-12] 1,000 mcg PO DAILY
Lactobac/Bifidobac [Visbiome] 1 cap PO DAILY
Polyethylene Glycol Powder [Miralax] 17 grams PO DAILY
05/24/25 06:00
Complete Blood Count/No Diff IN AM
Comprehensive Metabolic Panel IN AM
05/25/25 06:00
Complete Blood Count/No Diff IN AM
Comprehensive Metabolic Panel IN AM
05/25/25 11:00
DC Protocol for Telemetry ONCE
05/26/25 06:00
Complete Blood Count/No Diff IN AM
Comprehensive Metabolic Panel IN AM
05/27/25 06:00
Comprehensive Metabolic Panel IN AM
Abnormal Lab Results
05/22/25 05/22/25
12:33 13:39
RBC 3.57 L 10^6/uL
(4.20-5.40)
Hgb 11.1 L g/dL
(12.0-16.0)
Hct 32.9 L %
(37.0-47.0)
MCH 31.1 H pg
(27.0-31.0)
RDW 14.7 H %
(11.5-14.5)
Absolute Neuts (auto) 7.4 H 10^3/uL
(1.4-6.5)
Absolute Lymphs (auto) 1.0 L 10^3/uL
(1.2-3.4)
Absolute Monos (auto) 0.8 H 10^3/uL
(0.1-0.6)
Neutrophils % 79.4 H %
(42.2-75.2)
Lymphocytes % 10.9 L %
(20.5-51.1)
Sodium 124 L mmol/L
(135-145)
Chloride 95 L mmol/L
(98-107)
BUN 21 H mg/dl
(7-17)
Glucose 158 H mg/dl
(70-99)
Serum Osmolality 274 L mOsm/kg
(275-300)
AST 62 H U/L
(14-36)
ALT 37 H U/L
(0-35)
Troponin I 0.479 H* ng/ml
Urine Ketones 1+ A
(Negative)
Ur Occult Blood Reflex 3+ A
(Negative)
Urine Nitrite (Reflex) Positive A
(Negative)
Leukocyte Esterase Rfl 2+ A
(Negative)
Urine RBC 7-10 A /HPF
(0-2)
Urine WBC (Reflex) 16-20 A /HPF
(0-5)
Urine Bacteria (Reflex) Moderate A
(Negative)
Urine Sodium 27 L mmol/L
(30-90)
Urine Albumin (Reflex) 2+ A
(Neg - Trace)
05/22/25 12:33
05/22/25 12:33
Vital Signs
Initial and Last Documented VS:
Initial Vital Signs
Temp Pulse Resp BP Pulse Ox
97.6 F 69 18 143/69 98
05/22/25 12:09 05/22/25 12:09 05/22/25 12:09 05/22/25 12:09 05/22/25 12:09
Last Documented Vital Signs
Temp Pulse Resp BP Pulse Ox
98.8 F 72 18 117/57 95
05/23/25 03:41 05/23/25 03:41 05/23/25 03:41 05/23/25 03:41 05/23/25 03:41
<Norberto David MD - Last Filed: 05/23/25 06:14>
Orders/Labs/Results
Orders:
Orders
05/22/25 12:33
Complete Blood Count/With Diff Urgent
Comprehensive Metabolic Panel Urgent
Magnesium Urgent
Comment: ADD ON
NT-proBNP Urgent
Serum Osmolality Urgent
Comment: ADD ON
Troponin I Urgent
Comment: ADD ON
05/22/25 12:53
Add On- LAB Urgent
Tests Added?: magnesium, troponin
CT Head W/o Iv Contrast Urgent
Comment:
Reason For Exam: dizziness/RLE weakness
Straight cath- Treatment ONCE
05/22/25 12:59
Electrocardiogram (*1) Urgent
Reason for Study: Vertigo / Dizzy
EKG- Treatment ONCE
05/22/25 13:17
Ondansetron Injectable [Zofran] 4 mg IV NOW STA
05/22/25 13:19
Add On- LAB Urgent
Tests Added?: serum osm
05/22/25 13:39
Urinalysis Reflex To Culture Urgent
Date Specimen was Collected: 05/22/25
Time Specimen was Collected: 13:25
Urine Microscopic Reflex Cult Urgent
Urine Osmolality Random [Osmolality, Random Urine] Urgent
Date Specimen was Collected: 05/22/25
Time Specimen was Collected: 13:25
Urine Sodium Urgent
Date Specimen was Collected: 05/22/25
Time Specimen was Collected: 13:25
Urine Culture Urgent
LEROY Source: U
Specimen Description:
Date Specimen was Collected: 05/22/25
Time Specimen was Collected: 13:25
05/22/25 14:39
CefTRIAXone [Rocephin] 1,000 mg IV NOW STA
05/22/25 15:13
CR Chest - 2 Views Stat
Comment:
Reason For Exam: sob
05/22/25 15:31
Admit/Transfer Patient As Directed
Co-Sign Provider:
Level of Care: Inpatient admission
Assign to:: Telemetry
Physician / Group: ko
Diagnosis: UTi
Reason for Telemetry: Arrhythmia
Date to Stop Telemetry: 05/25/25
Time to Stop Telemetry: 11:00
Reason for Hospitalization: UTI
Expected length of stay greater than two midnights?: Yes
ELOS- Estimated Length of Stay in days: 3
I certify the patient meets the requirements for IP care: Yes
PRN Pain Medication Management As Directed
May give lesser potent ordered pain med per pt: Yes
preference::
Protocol:: Medication orders for pain may be administered in a
manner that supports deferring to patient preference
when the pt is:
- Requesting an ordered lesser potent pain medication.
Least to most potent pain medications are defined
as: acetaminophen < NSAID < tramadol < opioids
(morphine, oxycodone, hydromorphone).
- Requesting a lesser dose of the same medication IF
ORDERED.
- Requesting a less intrusive route of administration
if both routes are prescribed by the provider (PO <
IV).
05/22/25 15:33
Code Status As Directed
Resuscitation Status: Do not resuscitate
Reached after discussion with pt or family/Healthcare POA: Yes
DNR Bracelet Application ONCE
05/22/25 17:36
Bisacodyl [Dulcolax] 10 mg RECTAL [id number] PRN
Dextrose 50%-Water [Dextrose 50% Syringe] 12.5 grams IV [id number] PRN
Docusate W/Senna [Senokot-S] 1 tablet PO BIDPRN PRN
Glucagon [GlucaGen] 1 mg IM PRN PRN
Insulin Aspart Corrective Low [Novolog Flexpen-Low Resistance] See Protocol SC AC
Polyethylene Glycol Powder [Miralax] 17 grams PO DAILYPRN PRN
05/22/25 17:36
Activity As Directed
Activity Level: As Tolerated
Bedside Glucose Monitoring As Directed
Frequency: AC&HS
Additional Instructions:: Change to q6h if pt on TPN, tube feeding or not eating
Intake/ Output As Directed
Frequency: Per unit guidelines
Vital Signs As Directed
Frequency: Per unit guidelines
Weight As Directed
Frequency: Daily
05/22/25 17:49
Alprazolam [Xanax] 0.25 mg PO BIDPRN PRN Anxiety
05/22/25 18:00
Troponin I Q6H
METFORMIN HCl [Glucophage] 500 mg PO BID AT 0800,1700
05/22/25 20:00
Apixaban [Eliquis] 2.5 mg PO BID
Magnesium Oxide 400 mg PO BID
Methenamine Hippurate [Hiprex] 1 gram PO BID
Vit C/Vit E/Lutein/Min/Stanton-3 [Ocuvite Softgel] 1 cap PO BID
05/22/25 22:00
Lidocaine [Lidocaine 4% Patch] 1 patch TOPICAL HS
Apply Lidocaine patch(s) to:: lower back
Melatonin 5 mg PO HS
Ropinirole [Requip] 0.5 mg PO HS
05/22/25 23:50
Troponin I Q6H
05/23/25 05:36
Troponin I Q6H
05/23/25 Breakfast
2200 calorie (18 carb) Diabetic
At Your Request: Full Participation
Does patient need a safe tray?: No
Fluid Restriction: 1200 mL/day (40 oz)
Cardiovascular Evaluation IN AM
Complete Blood Count/No Diff IN AM
Comprehensive Metabolic Panel IN AM
Glycohemoglobin (HgbA1c) IN AM
Magnesium IN AM
05/23/25 08:00
Amiodarone [Pacerone] 200 mg PO DAILY
Cholecalciferol (Vitamin D3) [VITAMIN D3 (cholecalciferol)] 25 mcg PO DAILY
Cyanocobalamin [Vitamin B-12] 1,000 mcg PO DAILY
Lactobac/Bifidobac [Visbiome] 1 cap PO DAILY
Polyethylene Glycol Powder [Miralax] 17 grams PO DAILY
05/24/25 06:00
Complete Blood Count/No Diff IN AM
Comprehensive Metabolic Panel IN AM
05/25/25 06:00
Complete Blood Count/No Diff IN AM
Comprehensive Metabolic Panel IN AM
05/25/25 11:00
DC Protocol for Telemetry ONCE
05/26/25 06:00
Complete Blood Count/No Diff IN AM
Comprehensive Metabolic Panel IN AM
05/27/25 06:00
Comprehensive Metabolic Panel IN AM
Abnormal Lab Results
05/22/25 05/22/25
12:33 13:39
RBC 3.57 L 10^6/uL
(4.20-5.40)
Hgb 11.1 L g/dL
(12.0-16.0)
Hct 32.9 L %
(37.0-47.0)
MCH 31.1 H pg
(27.0-31.0)
RDW 14.7 H %
(11.5-14.5)
Absolute Neuts (auto) 7.4 H 10^3/uL
(1.4-6.5)
Absolute Lymphs (auto) 1.0 L 10^3/uL
(1.2-3.4)
Absolute Monos (auto) 0.8 H 10^3/uL
(0.1-0.6)
Neutrophils % 79.4 H %
(42.2-75.2)
Lymphocytes % 10.9 L %
(20.5-51.1)
Sodium 124 L mmol/L
(135-145)
Chloride 95 L mmol/L
(98-107)
BUN 21 H mg/dl
(7-17)
Glucose 158 H mg/dl
(70-99)
Serum Osmolality 274 L mOsm/kg
(275-300)
AST 62 H U/L
(14-36)
ALT 37 H U/L
(0-35)
Troponin I 0.479 H* ng/ml
Urine Ketones 1+ A
(Negative)
Ur Occult Blood Reflex 3+ A
(Negative)
Urine Nitrite (Reflex) Positive A
(Negative)
Leukocyte Esterase Rfl 2+ A
(Negative)
Urine RBC 7-10 A /HPF
(0-2)
Urine WBC (Reflex) 16-20 A /HPF
(0-5)
Urine Bacteria (Reflex) Moderate A
(Negative)
Urine Sodium 27 L mmol/L
(30-90)
Urine Albumin (Reflex) 2+ A
(Neg - Trace)
05/22/25 12:33
05/22/25 12:33
Vital Signs
Initial and Last Documented VS:
Initial Vital Signs
Temp Pulse Resp BP Pulse Ox
97.6 F 69 18 143/69 98
05/22/25 12:09 05/22/25 12:09 05/22/25 12:09 05/22/25 12:09 05/22/25 12:09
Last Documented Vital Signs
Temp Pulse Resp BP Pulse Ox
98.8 F 72 18 117/57 95
05/23/25 03:41 05/23/25 03:41 05/23/25 03:41 05/23/25 03:41 05/23/25 03:41
<Norberto David MD - Last Filed: 05/23/25 06:14>
MDM/Problems Addressed
MDM/Problems Addressed:
Blood work reviewed, significant for hyponatremia as well as elevated troponin. Patient remained chest pain-free during observation.
Urinalysis noted -Rocephin ordered.
Urine culture pending.
Patient will be admitted for further evaluation and treatment. Cardiology (Dr. WENDI Elena) notified regarding elevated troponin
<Toñito Ortiz MD, Resident - Last Filed: 05/22/25 12:30>
*Pulse Oximetry
SaO2: 99
Oxygen Mode of Delivery: Room air
<Norberto David MD - Last Filed: 05/23/25 06:14>
*Pulse Oximetry
Patient hypoxic: no
*EKG
Interpreted by ED Provider?: Yes
EKG Intrepretation Date: 05/22/25
Heart Rate: 68
Rate: normal
Rhythm: sinus
[place]: left axis deviation
Interval: normal interval
Ischemia: T-wave inversion (unchanged from 09/19)
*Critical Care Note
Total Time (30-74mins, 75-104mins- exclusive of procedures): Not Applicable
ED Attending Note
<Toñito Ortiz MD, Resident - Last Filed: 05/22/25 12:30>
-
Portions of this chart may have been created with voice recognition software.� Occasional wrong word or��sound alike� substitutions may have occurred due to the inherent limitations of voice recognition software.
Discharge Plan
Departure
Patient Disposition: Admit
Date of Disposition: 05/22/25
Time of Disposition: 14:52
Admit to: IMU
Presentation/result/management discussed w/ accepting MD/DO: Hospitalist
Discharge Problem:
Hyponatremia, Acute UTI, Cardiac enzymes elevated
Interventions
Interventions:
*Risk Screen - Suicide Last Done: 05/22/25 12:09
*General Assessment Last Done: 05/22/25 12:09
*Neglect/Abuse Screening Last Done: 05/22/25 12:09
*ED- Fall Risk Assessment Last Done: 05/22/25 12:28
*ED COVID-19 Vaccine History Last Done: 05/22/25 12:28
*Nursing Disposition Last Done: 05/22/25 18:42
ED- Cardiac Assessment Last Done: 05/22/25 12:25
ED- Neurological Assessment Last Done: 05/22/25 12:25
ED- Pulmonary Assessment Last Done: 05/22/25 12:25
Discharge Date and Time
Discharge Date/Time: 05/22/25 18:43
[2025-05-22 12:51] LABS: Hematocrit 32.9 % (37.0-47.0); Hemoglobin 11.1 g/dL (12.0-16.0); Mean Corp Hgb Conc. 33.7 g/dL (33.0-37.0); Mean Corpuscular Volume 92.2 fL (81.0-99.0); Nucleated Red Blood Cells % 0 %; Platelet Count 191 10^3/uL (130-400); Red Cell Dist. Width 14.7 % (11.5-14.5)
[2025-05-22 13:09] LABS: ALT (SGPT) 37 U/L (0-35); AST (SGOT) 62 U/L (14-36); Albumin 3.8 g/dl (3.5-5.0); Alkaline Phosphatase 85 U/L (38-126); Blood Urea Nitrogen 21 mg/dl (7-17); Calcium 8.5 mg/dl (8.4-10.2); Carbon Dioxide 24 mmol/L (22-30); Chloride 95 mmol/L (98-107); Estimated Creatinine Clearance 54 ml/min; Glucose 158 mg/dl (70-99); Potassium 5.1 mmol/L (3.5-5.1); Sodium 124 mmol/L (135-145); Total Protein 6.3 g/dl (6.3-8.2); eGFR > 60.00
[2025-05-22 13:18] LABS: Magnesium 2.0 mg/dl (1.6-2.3)
[2025-05-22 13:34] LABS: Troponin I 0.479 ng/ml
[2025-05-22] MEDS: ZOFRAN 4 MG IV (13:45)
[2025-05-22 14:28] LABS: Urine Character Clear (Clear)
[2025-05-22 14:39] LABS: Urine White Cell 16-20 /HPF (0-5)
[2025-05-22] MEDS: ROCEPHIN 1000 MG IV (14:45)
--- NOTE | 2025-05-22 14:49 | HPS.HSE ---
Addendum entered and electronically signed by Stephanie Lantigua MD 05/22/25 19:32:
This is an addendum to the H&P written by Ana Maria Colby on 05/22/2025. �Patient seen and examined independently with GUIDE DOG MOBILITY INSTRUCTOR.
89-year-old female past medical history of chronic HFrEF, ischemic cardiomyopathy, paroxysmal atrial fibrillation on Eliquis, moderate to severe aortic stenosis, diabetes, diabetic neuropathy, hyponatremia, hiatal hernia, chronic T11 compression
fracture, possible ILD, CVA, carotid stenosis status post CEA, anxiety, anemia presenting with shortness of breath worse with laying down, generalized weakness, nausea. �No urinary symptoms.
Fall last night. �Has been nauseous and belching for past 4 days with low abdominal pressure. �2 weeks ago primary care physician held Lasix 2 weeks ago due to hyponatremia.
Vital signs normal.
Labs show stable anemia hemoglobin 9.1. �Sodium of 124. �Cardiac BNP of 14,000. �Troponin of 0.5. �Mild transaminitis. �Urinalysis shows 16-20 WBC, positive nitrates, +2 leukocyte esterase. �
CT head shows no intracranial abnormality. Chest x-ray appears normal although report pending.
Patient with mild CHF exacerbation and worsening of chronic hyponatremia. �Possible urinary tract infection. �IV Lasix, cardiology following. �Trend troponins. �Urinalysis pending. �Hyponatremia workup pending. �Ceftriaxone for possible UTI. �PPI
started for belching although no reflux symptoms.
Original Note:
Family Physician
-
Family Physician: Nuzhat Zhu, DO
Chief Complaint
-
generalized weakness,sob, belching, nausea, fall
History of Present Illness
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
generalized weakness, shortness of breath worse when laying down for past few weeks. patient feeling weaker worse more than usual. for past four days, she is nauseous and belching. denied abdominal pain, vomit, diarrhea or constipation. denied
dysuria or hematuria. denied fever, chills, cough, congestion. denied chest pain. last week she fell and landed on her side after her waker bumped into something. In addition, secondary to low sodium level noted during routine blood work, Lasix has
been discontinued for the past 2 weeks, at the recommendation of her primary care physician.
patient received ceftriaxone for UTI. admitting for further management.
Medical History
Past Medical History
Past Medical History: Reports Other
Additional Past Medical History:
Hypertension, diabetes, breast cancer, type 2 diabetes, hiatal hernia, right carotid stenosis, GERD, seizures, hypercholesterolemia, CVA, restless leg syndrome, UTI, CHF, iron deficiency anemia, CVA
Past Surgical History: Reports Other
Additional Past Surgical History:
Left mastectomy, right carotid artery stent, hysterectomy, bowel resection, back surgery,
Social History
Tobacco: Non-smoker
Alcohol: None
Drug: None
Living: With Family
Family History
Family History: Not pertinent
Allergies / Home Medications
Allergies reflects when Allergies were last updated in [facility].
Home Medications with original date entered in [facility]
Allergy/Medication List:
Allergies
Allergy/AdvReac Type Severity Reaction Status Date / Time
codeine Allergy Nausea Verified 05/22/25 12:08
morphine Allergy Unknown Verified 05/22/25 12:08
nitrofurantoin (From Allergy Hives Verified 05/22/25 12:08
Macrobid)
Home Medications
vitamins A,C,A-wxei-nggdeg 4,296 mcg-226 mg-90 mg capsule (PreserVision AREDS) 1 cap PO BID Supplement 02/09/22
amiodarone 200 mg tablet 200 mg PO DAILY #30 tabs 05/30/24
magnesium oxide 500 mg PO BID #60 tabs 05/31/24
methenamine hippurate 1 gram tablet 1 g PO BID 09/08/24
ropinirole 0.5 mg tablet 0.5 mg PO HS 09/08/24
alprazolam 0.5 mg tablet 0.25 mg (1/2 x 0.5 mg) PO BIDPRN PRN Anxiety #6 tabs 09/17/24
apixaban 2.5 mg tablet (Eliquis) 2.5 mg PO BID #0 tabs 09/17/24
Lactobac no.2-Bifidobac no.1-S. thermo 112.5 billion cell capsule (Visbiome) 1 cap PO DAILY 05/22/25
acetaminophen 325 mg tablet 650 mg PO Q6HPRN PRN DOUGLAS, mild pain, or temp >100.4F 05/22/25
ascorbic acid (vitamin C) 500 mg tablet (Vitamin C) 500 mg PO DAILY 05/22/25
cholecalciferol (vitamin D3) 25 mcg (1,000 unit) tablet (Vitamin D3) 25 mcg PO DAILY 05/22/25
cyanocobalamin (vitamin B-12) 1,000 mcg tablet 1,000 mcg PO DAILY 05/22/25
furosemide 40 mg tablet 40 mg PO DAILY 05/22/25
lidocaine 4 % topical patch 1 patch topical HS lower back 05/22/25
melatonin 5 mg tablet 5 mg PO HS 05/22/25
metformin 500 mg tablet 500 mg PO BID 05/22/25
polyethylene glycol 3350 17 gram oral powder packet (Miralax) 17 g PO DAILY 05/22/25
Review of Systems
-
Constitutional: Reports Fatigue
EENT: Reports No Symptoms
Respiratory: Reports Trouble Breathing
Cardiac: Reports No Symptoms
Abdomen/GI: Reports Nausea
: Reports No Symptoms
Musculoskeletal: Reports No Symptoms
Skin: Reports No Symptoms
Neurological: Reports Weakness
Endocrine: Reports No Symptoms
Hematologic/Lymphatic: Reports No Symptoms
Psych: Reports No Symptoms
Physical Exam
Vital Signs
Vital Signs
Temp Pulse Resp BP Pulse Ox
97.6 F 67 17 143/69 99
05/22/25 12:09 05/22/25 12:20 05/22/25 12:20 05/22/25 12:09 05/22/25 12:30
Physical Exam
General: Well Developed, Well Nourished and No Apparent Distress
HEENT: NormoCephalic, Moist mucous membranes and Atraumatic
Respiratory: Clear
Cardiac: S1/S2 and Regular Rhythm; No Murmur or Rub
GI: Soft, Non Tender, Non Distended and Normal Bowel Sounds; No Organomegaly
Rectal: Deferred by Provider
Musculoskeletal: No Clubbing, No Cyanosis and No Edema
Skin: No Rash
Neuro: AO x 3 and Nonfocal/grossly intact
Psych: Calm
Laboratory Results
-
05/22/25 12:33
05/22/25 12:33
Laboratory Results
Total Bilirubin 1.0 mg/dl (0.2-1.3) 05/22/25 12:33
AST 62 U/L (14-36) H 05/22/25 12:33
ALT 37 U/L (0-35) H 05/22/25 12:33
Alkaline Phosphatase 85 U/L (38-126) 05/22/25 12:33
Troponin I 0.479 ng/ml H* 05/22/25 12:33
Data Reviewed
-
CT Scan: Report Reviewed by me
Lab Data: Labs Reviewed by me
Impression/Plan
-
# Nausea generalized weakness likely secondary to UTI
# History of E. coli UTI
- Head CT with no acute intracranial abnormality, mild atrophy, mild periventricular small vessel ischemic disease. Stable
-ceftriaxone continued
-culture pending
-Tylenol prn for fever and pain
-PT/OT added
#orthopnea possible CHF exacerbation
- BNP 26005
-obtain chest x ray
-Lasix initiated
-strict I&O, daily weight
-fluid restriction
-obtain ECHO
-cardiology consulted
#mechanical fall
-PT/OT consulted
#belching/nausea likely GERD
-PPI added
# Acute on chronic hyponatremia
- Sodium 124, serum osmolality 274 urinalysis 376, urine sodium 27
-fluid restriction
-BMP in am
# Paroxysmal A-fib
- Amiodarone and Eliquis continued
#Type 2 diabetes
- Metformin continued
- Sliding scale
- CHO diet
#Transaminitis likely hepatic congestion
- AST 62, ALT 37
-trend LFT's
# Chronic Trope rule out NSTEMI
- Troponin 0.479, denied chest pain
- EKG was sinus rhythm with first-degree AV block, left ventricular hypertrophy with QRS widening cannot rule out septal infract, marked T wave abnormality consider anterior lateral ischemia
-trend trop
-cardiology consulted
# Anemia of chronic disease
- Hemoglobin stable at 11.1, no active bleeding
- Continue to monitor
#moderate hiatal hernia
#Hx of possible ILD
#Hx of CVA
#Carotis stenosis s/p CEA
#Anxiety d/o
- Xanax continued
DVT ppx Eliquis
DNR/DNI
--- NOTE | 2025-05-22 15:48 | W.PN.CARDCBS ---
Addendum entered and electronically signed by Deana Funes DO 05/23/25 08:38:
I saw and examined the patient.
The Dock Pumper's note was reviewed and I agree with the note.
Comment: Patient was seen and examined in the office and sent to the ER for evaluation of several weeks of persistent nausea/belching and overall ill feeling with increasing weakness and fall at home. Patient states that Lasix was stopped earlier
this month due to concerns for hyponatremia. She is overall poor historian and was very emotional during her visit in the office. she denies chest pain or pressure. No fevers. Denies dysuria. Denies abdominal pain. Reports constipation but
denies melena or bright red blood per rectum. Subsequent ER workup/labs and studies reviewed with cardiac PA
Office exam:
Awake alert and oriented but appears in mild distress due to nausea and is emotional
Regular. Positive S1-S2 2/6 SM
Bronchovesicular breath sounds decreased at the bases. No wheezes or crackles
Abdomen is mildly distended but soft. No rebound tenderness. Positive bowel sounds
No lower extremity edema. Warm distal extremity
Grossly nonfocal
Plan:
- Patient is an 89-year-old female known to our service who was seen in office today for routine follow-up and had complained of nausea, weakness, and fall with recent poor appetite. She was referred to the ER and noted to have recurrent
hyponatremia with a sodium of 124 and a UTI
- proBNP is elevated at 14,800. CXR pending. Reportedly her Lasix was recently stopped by PCP due to concern for hyponatremia. This was after it had been decreased in February 2025 due to hypotension. Her weight at baseline historically has been 128
pounds. Today is noted to be 136 pounds.
- Start IV Lasix
- Consider use of Samsca
- Repeat 2D echocardiogram
- Defer to hospitalist additional workup of nausea
- Defer to hospitalist treatment of UTI
Patient has a history of PAF currently in sinus rhythm
- continue amiodarone 200 mg daily. Follow mildly elevated LFTs, which could be secondary to passive congestion from acute CHF.
- Check TSH
- Hemoglobin stable at 11.1. Continue outpatient Eliquis
Mildly abnormal troponin with suspected coronary disease
-No chest pain
- Troponin elevated at 0.4. Trend to peak.
-She has a history of abnormal stress test for which patient has declined cardiac catheterization on multiple occasions as an outpatient.
Moderate to severe aortic stenosis
- Last echocardiogram from 08/2024 with EF 40 to 45%.
- Repeat echocardiogram
Original Note:
Today's Communication / Plan
-
Correct sodium
Treat for UTI
Trend troponin
Would favor IV Lasix
Repeat echo
Impression / Plan
-
Please refer to office note dated 05/22/25
Primary Transit Operations Supervisor: Dr. Funes
Assessment:
Nausea, weakness, fall
Hyponatremia
UTI
Acute on chronic HFmrEF
Elevated troponin, suspect nonischemic myocardial injury
Paroxysmal atrial fibrillation
CM EF 40-45% Apr 2024
Mod to severe
Abnormal stress test, patient has declined cardiac catheterization on multiple occasions as OP
h/o multiple ischemic strokes which have been felt likely to represent small vessel disease and atherosclerosis
Autonomic dysfunction/hypotension/orthostasis treated with midodrine as needed
Carotid stenosis, right s/p stent
Hypercholesterolemia
Type 2 diabetes with diabetic neuropathy
History of seizure disorder
Breast Ca with Radiation Therapy s/p Left Mastectomy
GERD/Hiatal Hernia
RLS
UTIs
PSH: Hysterectomy /History of bowel resection/ Back surgery
Iron Deficiency
Congenital malformation of esophagus
Gait difficulty
Dysphagia
Former smoker
Echo 05/15/2024: EF 40 to 45%, global hypokinesis, stage II diastolic dysfunction, MAC, mild MR, mild to moderate with peak/mean gradients 27/18 mmHg, KAYLEIGH 1.4 cm�, trace AR
ECHO 05/25/2024: EF 40 to 45%, apex, inferolateral, inferior and anterior perez are hypokinetic, appears stable compared to prior.
Echo 09/08/2024: EF 40-45%, inferior, inferolateral, anterior, and apical hypokinesis. Mild MS, MAC, mild MR, moderate to severe (57/32 mmHg), mild to moderate TR, mild pulmonary hypertension PASP 43 mmHg
Plan:
- Patient is an 89-year-old female known to our service who was seen in office today for routine follow-up and had complained of nausea, weakness, and fall with recent poor appetite. She was referred to the ER and noted to have recurrent
hyponatremia with a sodium of 124. Also with concern for UTI
- proBNP is elevated at 14,800. CXR pending. Reportedly her Lasix was recently stopped by PCP due to concern for hyponatremia. This was after it had been decreased in February 2025 due to hypotension. Her weight at baseline historically has been 128
pounds. Today is noted to be 136 pounds. Would attempt diuresis with IV Lasix
- By EKG today in sinus rhythm with first-degree AV block and LVH. Continue amiodarone 200 mg daily. Follow mildly elevated LFTs, which could be secondary to passive congestion from acute CHF. Check TSH
- Hemoglobin stable at 11.1. Continue outpatient Eliquis
- Troponin elevated at 0.4. Trend to peak. Patient denies chest pain, however daughter does relay that she has had nausea and belching. She has a history of abnormal stress test for which patient has declined cardiac catheterization on multiple
occasions as an outpatient. Last echocardiogram from 08/2024 with EF 40 to 45%. Will repeat
- She also has known moderate to severe aortic stenosis by last echocardiogram, we will reassess
- Hypotension has precluded guideline directed medical therapy of known cardiomyopathy. She is not a candidate for SGLT2 inhibitor given history of UTIs
- Of note, patient's daughter who is primary caregiver, is scheduled to leave for a trip on Wednesday and patient was scheduled to go to respite care at that time.
- Discussed with ER physician. Discussed with primary botany teacher
Progress Note - Transit Operations Supervisor
Subjective
Date of Service: May 22, 2025
Reports nausea, weakness
Objective
Labs:
05/22/25 12:33
05/22/25 12:33
Labs
Hgb 11.1 g/dL (12.0-16.0) L 05/22/25 12:33
Hct 32.9 % (37.0-47.0) L 05/22/25 12:33
Plt Count 191 10^3/uL (130-400) 05/22/25 12:33
Sodium 124 mmol/L (135-145) L 05/22/25 12:33
Potassium 5.1 mmol/L (3.5-5.1) 05/22/25 12:33
BUN 21 mg/dl (7-17) H 05/22/25 12:33
Creatinine 0.7 mg/dL (0.6-1.0) 05/22/25 12:33
Glucose 158 mg/dl (70-99) H 05/22/25 12:33
Troponins
05/22/25
12:33
Troponin I 0.479 H*
Vital Signs and I&O:
Vital Signs
Temp Pulse Resp BP Pulse Ox
97.6 F 66 13 113/101 96
05/22/25 12:09 05/22/25 15:30 05/22/25 15:30 05/22/25 15:00 05/22/25 15:30
Vital Signs
Temp Pulse Resp BP Pulse Ox
97.6 F 66 13 113/101 96
05/22/25 12:09 05/22/25 15:30 05/22/25 15:30 05/22/25 15:00 05/22/25 15:30
Physical Exam
Physical Exam
GEN: No distress, awake, alert, oriented x3. frail, ill appearing.
HEENT: supple, anicteric, mmm, eomi
LUNGS: CTA B/L anterolaterally, no wheezes/rales
CV: Reg, S1/S2, 2/6 syst LSB
ABD: soft, BS+, NT/ND
EXT: No cyanosis, clubbing, edema
NEURO: Gross non-focal
SKIN: Warm, pink, dry. No rash
[2025-05-22 17:54] LABS: Glucose - Point of Care 128 mg/dl (70-99)
[2025-05-22] MEDS: LASIX 40 MG IV (18:33)
[2025-05-22] MEDS: PROTONIX 40 MG PO (18:33)
[2025-05-22] MEDS: GLUCOPHAGE 500 MG PO (18:34)
[2025-05-22] MEDS: NOVOLOG FLEXPEN-LOW RESISTANCE SC (18:42)
[2025-05-22 18:57] LABS: Troponin I 0.412 ng/ml
[2025-05-22 21:13] LABS: Glucose - Point of Care 227 mg/dl (70-99)
[2025-05-22] MEDS: OCUVITE SOFTGEL 1 CAP PO (21:22)
[2025-05-22] MEDS: HIPREX 1 GRAM PO (21:22)
[2025-05-22] MEDS: ELIQUIS 2.5 MG PO (21:22)
[2025-05-22] MEDS: REQUIP 0.5 MG PO (21:24)
[2025-05-22] MEDS: MELATONIN 5 MG PO (21:24)
[2025-05-22] MEDS: MAGNESIUM OXIDE 400 MG PO (21:25)
[2025-05-22] MEDS: XANAX 0.25 MG PO (21:28)
[2025-05-22] MEDS: REMOVE LIDOCAINE PATCH 1 PATCH REMOVE (22:29)
[2025-05-23] VITALS (9 sets, daily range): BP systolic 106–128; BP diastolic 49–63; PULSE 70; O2SAT 97; BMI 19.0
[2025-05-23 00:34] LABS: Troponin I 0.295 ng/ml
[2025-05-23 07:35] LABS: Glucose - Point of Care 159 mg/dl (70-99)
[2025-05-23 07:39] LABS: Hematocrit 29.9 % (37.0-47.0); Hemoglobin 10.3 g/dL (12.0-16.0); Mean Corp Hgb Conc. 34.4 g/dL (33.0-37.0); Mean Corpuscular Volume 90.3 fL (81.0-99.0); Platelet Count 176 10^3/uL (130-400); Red Cell Dist. Width 14.6 % (11.5-14.5)
[2025-05-23 08:33] LABS: ALT (SGPT) 34 U/L (0-35); AST (SGOT) 51 U/L (14-36); Albumin 3.6 g/dl (3.5-5.0); Alkaline Phosphatase 83 U/L (38-126); Blood Urea Nitrogen 22 mg/dl (7-17); Calcium 8.4 mg/dl (8.4-10.2); Carbon Dioxide 22 mmol/L (22-30); Chloride 99 mmol/L (98-107); Estimated Creatinine Clearance 50 ml/min; Glucose 147 mg/dl (70-99); HDL Cholesterol 37 mg/dl; LDL Cholesterol, Calculated 137 mg/dl; Magnesium 2.0 mg/dl (1.6-2.3); Potassium 4.5 mmol/L (3.5-5.1); Sodium 127 mmol/L (135-145); Total Protein 6.1 g/dl (6.3-8.2); Very Low Density Lipoprotein 31 mg/dl (0-30); eGFR > 60.00
[2025-05-23 08:38] LABS: Troponin I 0.203 ng/ml
[2025-05-23] MEDS: LASIX 40 MG IV (08:57)
[2025-05-23] MEDS: HIPREX 1 GRAM PO ×2 (08:57→20:05)
[2025-05-23] MEDS: VITAMIN B-12 1000 MCG PO (08:57)
[2025-05-23] MEDS: MIRALAX 17 GRAMS PO (08:57)
[2025-05-23] MEDS: GLUCOPHAGE 500 MG PO (08:57)
[2025-05-23] MEDS: ELIQUIS 2.5 MG PO ×2 (08:57→20:05)
[2025-05-23] MEDS: MAGNESIUM OXIDE 400 MG PO ×2 (08:57→20:04)
[2025-05-23] MEDS: LIDOCAINE 4% PATCH 1 PATCH TOPICAL (08:57)
[2025-05-23] MEDS: PROTONIX 40 MG PO (08:57)
[2025-05-23] MEDS: PACERONE 200 MG PO (08:57)
[2025-05-23] MEDS: OCUVITE SOFTGEL 1 CAP PO ×2 (08:57→20:05)
[2025-05-23] MEDS: VITAMIN D3 (cholecalciferol) 25 MCG PO (08:57)
[2025-05-23] MEDS: VISBIOME 1 CAP PO (08:57)
[2025-05-23] MEDS: NOVOLOG FLEXPEN-LOW RESISTANCE 1 UNITS SC (09:03)
[2025-05-23 09:11] LABS: Glycohemoglobin (HgbA1c) 7.0 % (4.0-5.6)
[2025-05-23] MEDS: XANAX 0.25 MG PO ×2 (11:23→20:07)
[2025-05-23 11:26] LABS: Glucose - Point of Care 211 mg/dl (70-99)
[2025-05-23] MEDS: NOVOLOG FLEXPEN-LOW RESISTANCE 2 UNITS SC (12:44)
--- NOTE | 2025-05-23 13:48 | W.PN.HOSP.TC ---
Today's Communication/Plan
-
abx
f/u cultures
iv lasix
echo
Assessment / Plan
Assessment / Plan
GEN: No distress, awake, alert, oriented x3. frail, ill appearing.
HEENT: supple, anicteric, mmm, eomi
LUNGS: CTA B/L anterolaterally, no wheezes/rales
CV: Reg, S1/S2, 2/6 syst LSB
ABD: soft, BS+, NT/ND
EXT: No cyanosis, clubbing, edema
NEURO: Gross non-focal
SKIN: Warm, pink, dry. No rash
# Nausea generalized weakness likely secondary to UTI
# History of E. coli UTI
-Ecoli -prelim
- Head CT with no acute intracranial abnormality, mild atrophy, mild periventricular small vessel ischemic disease. Stable
-ceftriaxone continued
-culture pending
-Tylenol prn for fever and pain
-PT/OT added
#Acute on Chronic HFrEF
- BNP 78222
-obtain chest x ray
-Lasix initiated
-strict I&O, daily weight
-fluid restriction
-obtain ECHO
-cardiology consulted
#mechanical fall
-PT/OT consulted
#belching/nausea likely GERD
-PPI added
# Acute on chronic hyponatremia
- Sodium 124, serum osmolality 274 urinalysis 376, urine sodium 27
-fluid restriction
-Monitor with diuresis
-BMP in am
# Paroxysmal A-fib
- Amiodarone and Eliquis continued
#Elevated Troponin
-2/2 to acute CHF exacerbation
-Non ischemic myocardial injury
-no chest pain
-echo
#Type 2 diabetes
- Metformin continued
- Sliding scale
- CHO diet
#Transaminitis likely hepatic congestion
- AST 62, ALT 37
-trend LFT's
# Anemia of chronic disease
- Hemoglobin stable at 11.1, no active bleeding
- Continue to monitor
#moderate hiatal hernia
#Hx of possible ILD
#Hx of CVA
#Carotis stenosis s/p CEA
#Anxiety d/o
- Xanax continued
DVT ppx Eliquis
DNR/DNI
Anticipated Discharge: 24 - 48 hours
Subjective/Interval History
-
Date of Service: May 23, 2025
No acute events overnight
Objective Data
-
Labs:
Laboratory Results
05/23/25
06:55
WBC 8.1
Hgb 10.3 L
Hct 29.9 L
Plt Count 176
Sodium 127 L
Potassium 4.5
Chloride 99
Carbon Dioxide 22
BUN 22 H
Creatinine 0.7
Glucose 147 H
Calcium 8.4
Total Bilirubin 0.6
AST 51 H
ALT 34
Alkaline Phosphatase 83
Vital Signs:
Vital Signs
Temp Pulse Resp BP Pulse Ox
98.1 F 74 18 111/54 97
05/23/25 11:20 05/23/25 11:20 05/23/25 11:20 05/23/25 11:20 05/23/25 11:20
Review of Systems
-
History Source: Patient
All other systems: Reviewed and negative
Data Reviewed
-
Diagnostic Radiology: Report Reviewed by me
Labs: Labs Reviewed by me
[2025-05-23] MEDS: STERILE WATER FOR INJECTION 10 ML IV (14:03)
[2025-05-23] MEDS: ROCEPHIN 1000 MG IV (14:03)
--- NOTE | 2025-05-23 15:20 | W.PN.CARDCBS ---
Today's Communication / Plan
-
Transition to p.o. Lasix 20 mg daily in a.m.
Follow sodium level
Echo pending
consider addition of statin
Continue treatment of UTI
d/w daughter via telephone
Impression / Plan
-
Please refer to office note dated 05/22/25
Primary Slate Trimmer: Dr. Funes
Assessment:
Nausea, weakness, fall
Hyponatremia
UTI
Acute on chronic HFmrEF
Elevated troponin, suspected nonischemic myocardial injury
Paroxysmal atrial fibrillation
CM EF 40-45% Apr 2024
Mod to severe
Abnormal stress test, patient has declined cardiac catheterization on multiple occasions as OP
h/o multiple ischemic strokes which have been felt likely to represent small vessel disease and atherosclerosis
Autonomic dysfunction/hypotension/orthostasis treated with midodrine as needed
Carotid stenosis, right s/p stent
Hypercholesterolemia
Type 2 diabetes with diabetic neuropathy
History of seizure disorder
Breast Ca with Radiation Therapy s/p Left Mastectomy
GERD/Hiatal Hernia
RLS
UTIs
PSH: Hysterectomy /History of bowel resection/ Back surgery
Iron Deficiency
Congenital malformation of esophagus
Gait difficulty
Dysphagia
Former smoker
Echo 05/15/2024: EF 40 to 45%, global hypokinesis, stage II diastolic dysfunction, MAC, mild MR, mild to moderate with peak/mean gradients 27/18 mmHg, KAYLEIGH 1.4 cm�, trace AR
ECHO 05/25/2024: EF 40 to 45%, apex, inferolateral, inferior and anterior perez are hypokinetic, appears stable compared to prior.
Echo 09/08/2024: EF 40-45%, inferior, inferolateral, anterior, and apical hypokinesis. Mild MS, MAC, mild MR, moderate to severe (57/32 mmHg), mild to moderate TR, mild pulmonary hypertension PASP 43 mmHg
Plan:
- She presented with nausea and weakness as well as sodium of 124
- being treated for UTI
- main complaint today is of restless legs (she has struggled with this as OP as well per daughter). d/w hospitalist. changing ropinirole at daughter's request to daily at 1800.
- weight trending down if accurate. will plan to place back on po lasix 20mg daily in AM, which had been stopped recently as OP due to concerns was contributing to worsening hyponatremia.
- LFTs improving. TSH WNL. in SR on review of tele. continue amiodarone 200mg daily.
- continue eliquis
- she remains without complaints of CP. trop peaked at 0.4 and trending down. She has a history of abnormal stress test for which patient has declined cardiac catheterization on multiple occasions as an outpatient. Last echocardiogram from 08/2024
with EF 40 to 45%. Repeat pending 05/23.
- she is not on statin as OP. LDL 137. would consider initiating
- She also has known moderate to severe aortic stenosis by last echocardiogram, we will reassess by echo
- Hypotension has precluded guideline directed medical therapy of known cardiomyopathy. She is not a candidate for SGLT2 inhibitor given history of UTIs
- Of note, patient's daughter who is primary caregiver, is scheduled to leave for a trip on Wednesday and patient was scheduled to go to respite care at that time.
- will arrange OP cardiac follow up
- Discussed with nursing
- Discussed with patient's daughter Parvin via telephone for 7:20 and updated
Progress Note - Slate Trimmer
Subjective
Date of Service: May 23, 2025
Reports some continued weakness primarily in her legs as well as restless leg symptoms
Objective
Labs:
05/23/25 06:55
05/23/25 06:55
Labs
Hgb 10.3 g/dL (12.0-16.0) L 05/23/25 06:55
Hct 29.9 % (37.0-47.0) L 05/23/25 06:55
Plt Count 176 10^3/uL (130-400) 05/23/25 06:55
Sodium 127 mmol/L (135-145) L 05/23/25 06:55
Potassium 4.5 mmol/L (3.5-5.1) 05/23/25 06:55
BUN 22 mg/dl (7-17) H 05/23/25 06:55
Creatinine 0.7 mg/dL (0.6-1.0) 05/23/25 06:55
Glucose 147 mg/dl (70-99) H 05/23/25 06:55
Troponins
05/22/25 05/22/25 05/22/25
12:33 18:00 23:50
Troponin I 0.479 H* 0.412 H* 0.295 H* D
05/23/25
06:55
Troponin I 0.203 H* D
Vital Signs and I&O:
Vital Signs
Temp Pulse Resp BP Pulse Ox
98.1 F 74 18 111/54 97
05/23/25 11:20 05/23/25 11:20 05/23/25 11:20 05/23/25 11:20 05/23/25 11:20
Vital Signs
Temp Pulse Resp BP Pulse Ox
98.1 F 74 18 111/54 97
05/23/25 11:20 05/23/25 11:20 05/23/25 11:20 05/23/25 11:20 05/23/25 11:20
Physical Exam
Physical Exam
GEN: No distress, awake, alert, oriented x3. chronically ill appearing
HEENT: supple, anicteric, mmm, eomi
LUNGS: CTA B/L, no wheezes/rales
CV: Reg, S1/S2, 2/6 syst LSB
ABD: soft, BS+, NT/ND
EXT: No cyanosis, clubbing, edema
NEURO: Gross non-focal
SKIN: Warm, pink, dry. No rash
[2025-05-23] MEDS: ZOSTRIX-HP 0.075% CREAM 1 APPLIC TOPICAL ×2 (15:39→21:57)
[2025-05-23 16:03] LABS: Glucose - Point of Care 131 mg/dl (70-99)
[2025-05-23] MEDS: NOVOLOG FLEXPEN-LOW RESISTANCE SC (16:28)
[2025-05-23] MEDS: REQUIP 0.5 MG PO (17:41)
[2025-05-23] MEDS: REMOVE LIDOCAINE PATCH 1 PATCH REMOVE (20:05)
[2025-05-23] MEDS: MELATONIN 5 MG PO (20:07)
[2025-05-23 21:19] LABS: Glucose - Point of Care 239 mg/dl (70-99)
[2025-05-24 03:27] VITALS: BP 125/68
[2025-05-24 06:05] VITALS: BMI 19.7
[2025-05-24 07:17] VITALS: BP 121/70
[2025-05-24 08:07] LABS: Glucose - Point of Care 157 mg/dl (70-99)
[2025-05-24] MEDS: MIRALAX 17 GRAMS PO (08:32)
[2025-05-24] MEDS: HIPREX 1 GRAM PO (08:32)
[2025-05-24] MEDS: OCUVITE SOFTGEL 1 CAP PO (08:32)
[2025-05-24] MEDS: MAGNESIUM OXIDE 400 MG PO (08:33)
[2025-05-24] MEDS: VITAMIN B-12 1000 MCG PO (08:33)
[2025-05-24] MEDS: LIDOCAINE 4% PATCH 1 PATCH TOPICAL (08:33)
[2025-05-24] MEDS: PACERONE 200 MG PO (08:33)
[2025-05-24] MEDS: LASIX 20 MG PO (08:33)
[2025-05-24] MEDS: NOVOLOG FLEXPEN-LOW RESISTANCE 1 UNITS SC (08:33)
[2025-05-24] MEDS: PROTONIX 40 MG PO (08:33)
[2025-05-24] MEDS: VITAMIN D3 (cholecalciferol) 25 MCG PO (08:33)
[2025-05-24] MEDS: VISBIOME 1 CAP PO (08:33)
[2025-05-24] MEDS: ELIQUIS 2.5 MG PO (08:33)
[2025-05-24] MEDS: ZOSTRIX-HP 0.075% CREAM 1 APPLIC TOPICAL (08:34)
[2025-05-24] MEDS: XANAX 0.25 MG PO (08:36)
[2025-05-24 08:40] LABS: Hematocrit 32.5 % (37.0-47.0); Hemoglobin 10.6 g/dL (12.0-16.0); Mean Corp Hgb Conc. 32.6 g/dL (33.0-37.0); Mean Corpuscular Volume 93.4 fL (81.0-99.0); Platelet Count 198 10^3/uL (130-400); Red Cell Dist. Width 14.8 % (11.5-14.5)
[2025-05-24 08:56] LABS: ALT (SGPT) 29 U/L (0-35); AST (SGOT) 41 U/L (14-36); Albumin 3.6 g/dl (3.5-5.0); Alkaline Phosphatase 83 U/L (38-126); Blood Urea Nitrogen 23 mg/dl (7-17); Calcium 8.9 mg/dl (8.4-10.2); Carbon Dioxide 26 mmol/L (22-30); Chloride 99 mmol/L (98-107); Estimated Creatinine Clearance 59 ml/min; Glucose 164 mg/dl (70-99); Potassium 4.3 mmol/L (3.5-5.1); Sodium 130 mmol/L (135-145); Total Protein 6.1 g/dl (6.3-8.2); eGFR > 60.00
--- NOTE | 2025-05-24 10:54 | W.PN.HOSP.TC ---
Addendum entered and electronically signed by Rich Velasquez MD 05/24/25 17:36:
[id number]
Original Note:
Today's Communication/Plan
-
complete abx course
capsaicin
20mg lasix daily
PPI
f/u bmp in 3-5 days monitoring Na
F/u PCP, Cards, Gen Surg outpt
Assessment / Plan
Assessment / Plan
GEN: No distress, awake, alert, oriented x3. frail, ill appearing.
HEENT: supple, anicteric, mmm, eomi
LUNGS: CTA B/L anterolaterally, no wheezes/rales
CV: Reg, S1/S2, 2/6 syst LSB
ABD: soft, BS+, NT/ND
EXT: No cyanosis, clubbing, edema
NEURO: Gross non-focal
SKIN: Warm, pink, dry. No rash
# Nausea generalized weakness likely secondary to UTI
# History of E. coli UTI
-Ecoli -final
- Head CT with no acute intracranial abnormality, mild atrophy, mild periventricular small vessel ischemic disease. Stable
-ceftriaxone continued - switch to cefdinir x 6 more days to complete 7 day course
-Tylenol prn for fever and pain
-PT/OT added
#Acute on Chronic HFrEF
- BNP 19792
-obtain chest x ray
-Lasix initiated - switch to PO 20mg lasix
-strict I&O, daily weight
-fluid restriction
-obtain ECHO - no significant change
-cardiology consulted
#mechanical fall
-PT/OT consulted
#belching/nausea likely GERD in setting of large hiatal hernia
-PPI added
-F/u surgery outpt
# Acute on chronic hyponatremia
- Sodium 124, serum osmolality 274 urinalysis 376, urine sodium 27
-fluid restriction
-Monitor with diuresis
-BMP outpt
# Paroxysmal A-fib
- Amiodarone and Eliquis continued
#Elevated Troponin
-2/2 to acute CHF exacerbation
-Non ischemic myocardial injury
-no chest pain
-echo - no wma
#Type 2 diabetes
- Metformin continued
- Sliding scale
- CHO diet
#Transaminitis likely hepatic congestion
- AST 62, ALT 37
-trend LFT's
# Anemia of chronic disease
- Hemoglobin stable at 11.1, no active bleeding
- Continue to monitor
#moderate hiatal hernia
#Hx of possible ILD
#Hx of CVA
#Carotis stenosis s/p CEA
#Anxiety d/o
- Xanax continued
DVT ppx Eliquis
DNR/DNI
More than 30 minutes spent in discharge including
Final examination of the patient
Summarizing hospital stay
Instructions for continuing care to all relevant caregivers
Preparation of discharge records, prescriptions, and referral forms
Total time spent (in minutes): 36
Anticipated Discharge: Today
Subjective/Interval History
-
Date of Service: May 24, 2025
Feels better today
Objective Data
-
Labs:
Laboratory Results
05/24/25
08:05
WBC 5.6
Hgb 10.6 L
Hct 32.5 L
Plt Count 198
Sodium 130 L
Potassium 4.3
Chloride 99
Carbon Dioxide 26
BUN 23 H
Creatinine 0.6
Glucose 164 H
Calcium 8.9
Total Bilirubin 0.5
AST 41 H
ALT 29
Alkaline Phosphatase 83
Vital Signs:
Vital Signs
Temp Pulse Resp BP Pulse Ox
98.5 F 67 18 121/70 95
05/24/25 07:17 05/24/25 07:17 05/24/25 07:17 05/24/25 07:17 05/24/25 07:17
I&O
05/23/25 05/24/25 05/25/25
06:59 06:59 06:59
Intake Total 1020 / 1020
Output Total 400 / 400
Balance 620 / 620
Review of Systems
-
History Source: Patient
All other systems: Reviewed and negative
Physical Exam
-
General: Comfortable
HEENT: Normocephalic
Respiratory: Rales and Crackles
Cardiac: Regular Rhythm
GI: Soft, Nontender and Nondistended
Musculoskeletal: No Clubbing, No Cyanosis and No Edema
Neuro: Awake, Alert, Oriented and AO x 3
Psych: Calm and Apparent Dementia
Data Reviewed
-
Diagnostic Radiology: Report Reviewed by me
CT Scan: Report Reviewed by me
Labs: Labs Reviewed by me
--- NOTE | 2025-05-24 10:59 | W.DS.TRANS ---
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
-
Discharge Instructions:
Discharge Diagnosis/Procedures #UTI
#Acute on Chronic HFrEF
Diet Low Cholesterol,Low Fat,Restrict fluids to 48 oz
,Diabetic, Carb Controlled
Blood Work cbc and bmp in 1 week with pcp
Specialty Instructions Weigh Daily
Instructions: *DCA Heart Failure Instructions
Stand-Alone Forms:
Changes to Home Medications: Yes
Discharge Medications:
DC Medications w/original date entered in [employer]
vitamins A,C,[id number]-wxsmws 4,296 mcg-226 mg-90 mg capsule (PreserVision AREDS) 1 cap PO BID Supplement 02/09/22
amiodarone 200 mg tablet 200 mg PO DAILY #30 tabs 05/30/24
magnesium oxide 500 mg PO BID #60 tabs 05/31/24
methenamine hippurate 1 gram tablet 1 g PO BID Urinary Issue 09/08/24
ropinirole 0.5 mg tablet 0.5 mg PO HS RESTLESS LEG 09/08/24
alprazolam 0.5 mg tablet 0.25 mg (1/2 x 0.5 mg) PO BIDPRN PRN Anxiety #6 tabs 09/17/24
apixaban 2.5 mg tablet (Eliquis) 2.5 mg PO BID #0 tabs 09/17/24
Lactobac no.2-Bifidobac no.1-S. thermo 112.5 billion cell capsule (Visbiome) 1 cap PO DAILY Supplement 05/22/25
acetaminophen 325 mg tablet 650 mg PO Q6HPRN PRN DOUGLAS, mild pain, or temp >100.4F 05/22/25
ascorbic acid (vitamin C) 500 mg tablet (Vitamin C) 500 mg PO DAILY Supplement 05/22/25
cholecalciferol (vitamin D3) 25 mcg (1,000 unit) tablet (Vitamin D3) 25 mcg PO DAILY Supplement 05/22/25
cyanocobalamin (vitamin B-12) 1,000 mcg tablet 1,000 mcg PO DAILY Supplement 05/22/25
lidocaine 4 % topical patch 1 patch topical HS lower back 05/22/25
melatonin 5 mg tablet 5 mg PO HS Sleep 05/22/25
metformin 500 mg tablet 500 mg PO BID Diabetes 05/22/25
polyethylene glycol 3350 17 gram oral powder packet (Miralax) 17 g PO DAILY Constipation 05/22/25
capsaicin 0.075 % topical cream (Arthritis Pain Relief (capsaicin)) 1 applic topical QID #120 grams 05/24/25
cefdinir 300 mg capsule 300 mg PO Q12H 6 days #12 caps 05/24/25
furosemide 20 mg tablet 20 mg PO DAILY 30 days #30 tabs 05/24/25
pantoprazole 40 mg tablet,delayed release 40 mg PO DAILY #30 tabs 05/24/25
Home Medication Changes
capsaicin 0.075 % topical cream (Arthritis Pain Relief (capsaicin)) 1 applic topical QID #120 grams 05/24/25
cefdinir 300 mg capsule 300 mg PO Q12H 6 days #12 caps 05/24/25
furosemide 20 mg tablet 20 mg PO DAILY 30 days #30 tabs 05/24/25
pantoprazole 40 mg tablet,delayed release 40 mg PO DAILY #30 tabs 05/24/25
Pending Results: No
--- NOTE | 2025-05-24 11:38 | CM ---
Addendum entered by Sd Romero 05/24/25 13:07:
Per PT, patient did better today and rec HH
Updated hospitalist, will provide scripts for therapy. Patient can get therapy at [facility] while in respite care
Updated daughter
IMM verbally reviewed w/ patient, copy provided, copy on chart
Original Note:
Patient seen bedside, initial assessment completed. Patient is a 89-year-old with past medical history for breast cancer, CVA, hypertension, NIDDM, seizures, depression, iron deficiency anemia, aortic stenosis, pulmonary hypertension, seizure
presents to ED from [employer] office secondary to worsening generalized weakness, shortness of breath.
Patient resides w/ her daughter, Parvni, in a 2STH, 3 steps to enter from the outside. Patient is independent w/ the use of a RW, has grab bar and shower chair in bathroom. Daughter assists w/ shower, patient independent w/ most ADLs. Denies SNF
hx, prev known to [facility] about 2 months ago.
Address, points of contact and insurance verified
PCP: Nuzhat Zhu
Pharmacy: [facility]
Patient stable for discharge today. Therapy rec SNF, discussed w/ patient who shared that she is going to [facility] tomorrow for respite care for 2 weeks and they have therapy on site. CM reviewed patient's generalized weakness and impaired balance
according to PT eval and wants to be sure [facility] would be able to support her current level of functioning. CM discussed w/ patient's daughter, Parvin, who stated she would like PT to re evaluate patient as she will be leaving for 2 weeks,
unsure that if patient admits to SNF it would be for the entire 2 weeks she's away. Parvin stated her best wish is for patient be re-evaluated and be able to do better instead of needing skilled. Parvin shared when she walked w/ patient
yesterday she did not assist her. Parvin is asking for patient to been seen promptly if possible as she will be at the hospital to pick patient up following her dentist appt at noon.
TT PT to see if patient can be re-evaluated
Plan: Patient and daughter prefers d/c home. Requesting PT to see patient again prior to d/c
[2025-05-24 11:43] VITALS: BP 118/53
[2025-05-24 12:08] LABS: Glucose - Point of Care 186 mg/dl (70-99)
--- NOTE | 2025-05-24 12:42 | W.PN.CARDCBS ---
Today's Communication / Plan
-
Okay for discharge from cardiac standpoint
Cardiac follow-up arranged
Impression / Plan
-
Please refer to office note dated 05/22/25
Primary Organ Recovery Coordinator: Dr. Funes
Assessment:
Nausea, weakness, fall
Hyponatremia
UTI
Acute on chronic HFmrEF
Elevated troponin, suspected nonischemic myocardial injury
Paroxysmal atrial fibrillation
CM EF 40-45% Apr 2024
Mod to severe
Abnormal stress test, patient has declined cardiac catheterization on multiple occasions as OP
h/o multiple ischemic strokes which have been felt likely to represent small vessel disease and atherosclerosis
Autonomic dysfunction/hypotension/orthostasis treated with midodrine as needed
Carotid stenosis, right s/p stent
Hypercholesterolemia
Type 2 diabetes with diabetic neuropathy
History of seizure disorder
Breast Ca with Radiation Therapy s/p Left Mastectomy
GERD/Hiatal Hernia
RLS
UTIs
PSH: Hysterectomy /History of bowel resection/ Back surgery
Iron Deficiency
Congenital malformation of esophagus
Gait difficulty
Dysphagia
Former smoker
Echo 05/15/2024: EF 40 to 45%, global hypokinesis, stage II diastolic dysfunction, MAC, mild MR, mild to moderate with peak/mean gradients 27/18 mmHg, KAYLEIGH 1.4 cm�, trace AR
ECHO 05/25/2024: EF 40 to 45%, apex, inferolateral, inferior and anterior perez are hypokinetic, appears stable compared to prior.
Echo 09/08/2024: EF 40-45%, inferior, inferolateral, anterior, and apical hypokinesis. Mild MS, MAC, mild MR, moderate to severe (57/32 mmHg), mild to moderate TR, mild pulmonary hypertension PASP 43 mmHg
Plan:
She seems significantly improved.
Nausea/weakness/etc. has resolved with improvement in serum sodium.
No evidence of volume overload.
Aortic stenosis noted.
Okay for discharge, we have arranged for cardiac follow-up.
Progress Note - Organ Recovery Coordinator
Subjective
Date of Service: May 24, 2025:
89-year-old woman with nausea weakness, falls and anorexia. She presented to the emergency department with a sodium of 124 in the setting of a urinary tract infection and proBNP of 14,800.
PMH: Moderate to severe , presumed underlying CAD with ischemic cardiomyopathy, EF 40-45%, multiple ischemic strokes, orthostasis on midodrine as needed, right carotid stent, hypercholesterolemia, type 2 diabetes/diabetic neuropathy, seizure
disorder, breast cancer with radiation and left mastectomy, GERD, RLS, UTIs, multiple surgeries
Current meds: Amiodarone 200 mg a day, apixaban 2.5 mg twice daily, vitamin D3, vitamin B12, magnesium oxide 400 twice daily, melatonin, methamphetamine, MiraLAX, insulin, pantoprazole, ceftriaxone, ropinirole, lidocaine patch, furosemide 20 mg daily
121/70, pulse 67, respiratory rate 18, afebrile, sats 95%, weight is 58.8 kg, unchanged from 826, up 2 kg compared to yesterday, admission weight was 62 kg, pleasant, lungs are clear, regular rate and rhythm, aortic stenosis murmur, abdomen benign,
no edema, offers no complaints,
Hemoglobin 10.6, sodium 130, potassium 4.3, chloride 99, BUN and creatinine are 23 and 0.6,, potassium is 4.3 AST is 41, peak troponin was 0.479, proBNP 14,800
Echo: EF 40-45%, global hypokinesis, normal RV, dilated atria, severe aortic stenosis, 0.66cm2 mild mitral stenosis, mild mitral regurgitation. Pulmonary artery systolic pressure is 45 mmHg
Objective
Labs:
05/24/25 08:05
05/24/25 08:05
Labs
Hgb 10.6 g/dL (12.0-16.0) L 05/24/25 08:05
Hct 32.5 % (37.0-47.0) L 05/24/25 08:05
Plt Count 198 10^3/uL (130-400) 05/24/25 08:05
Sodium 130 mmol/L (135-145) L 05/24/25 08:05
Potassium 4.3 mmol/L (3.5-5.1) 05/24/25 08:05
BUN 23 mg/dl (7-17) H 05/24/25 08:05
Creatinine 0.6 mg/dL (0.6-1.0) 05/24/25 08:05
Glucose 164 mg/dl (70-99) H 05/24/25 08:05
Troponins
05/22/25 05/22/25 05/22/25
12:33 18:00 23:50
Troponin I 0.479 H* 0.412 H* 0.295 H* D
05/23/25
06:55
Troponin I 0.203 H* D
Vital Signs and I&O:
Vital Signs
Temp Pulse Resp BP Pulse Ox
36.6 C 70 18 118/53 96
05/24/25 11:43 05/24/25 11:43 05/24/25 11:43 05/24/25 11:43 05/24/25 11:43
Vital Signs
Temp Pulse Resp BP Pulse Ox
36.6 C 70 18 118/53 96
05/24/25 11:43 05/24/25 11:43 05/24/25 11:43 05/24/25 11:43 05/24/25 11:43
Intake & Output
05/22/25 05/23/25 05/24/25 05/25/25
07:59 07:59 07:59 07:59
Intake Total 1020 / 1020
Output Total 400 / 400
Balance 620 / 620
Physical Exam
Physical Exam
See above
== END 2025-05-24 13:56 | disposition home or self-care (01) | DRG 640 ==
LOC: 4 EAST ACU 15:43
PROVIDERS: Registered Nurse; ADMITTING PHYSICIAN Hospitalist; ATTENDING PHYSICIAN Internal Medicine; EMERGENCY PHYSICIAN Emergency Medicine; FAMILY PHYSICIAN Family Medicine
DX: E87.1 Hypo-osmolality and hyponatremia (principal); I50.23 Acute on chronic systolic (congestive) heart failure; N39.0 Urinary tract infection, site not specified; M48.54XA Collapsed vertebra, not elsewhere classified, thoracic region, initial encounter for fracture; I5A Non-ischemic myocardial injury (non-traumatic); I11.0 Hypertensive heart disease with heart failure; Z66 Do not resuscitate; I25.5 Ischemic cardiomyopathy; I48.0 Paroxysmal atrial fibrillation; I35.0 Nonrheumatic aortic (valve) stenosis; E11.40 Type 2 diabetes mellitus with diabetic neuropathy, unspecified; B96.20 Unspecified Escherichia coli [E. coli] as the cause of diseases classified elsewhere; K21.9 Gastro-esophageal reflux disease without esophagitis; K44.9 Diaphragmatic hernia without obstruction or gangrene; E78.00 Pure hypercholesterolemia, unspecified; F41.9 Anxiety disorder, unspecified; G25.81 Restless legs syndrome; I44.0 Atrioventricular block, first degree; K76.1 Chronic passive congestion of liver; R29.6 Repeated falls; D63.8 Anemia in other chronic diseases classified elsewhere; Z88.5 Allergy status to narcotic agent; Z87.891 Personal history of nicotine dependence; Z79.84 Long term (current) use of oral hypoglycemic drugs; Z79.01 Long term (current) use of anticoagulants; Z79.899 Other long term (current) drug therapy; Z85.3 Personal history of malignant neoplasm of breast; Z86.73 Personal history of transient ischemic attack (TIA), and cerebral infarction without residual deficits
CPT/HCPCS: 51701; 70450; 71046; 80053; 80061; 81003; 81015; 82962; 83036; 83735; 83880; 83930; 83935; 84300; 84443; 84484; 85025; 85027; 87086; 87088; 87186; 93005; 93306; 96374; 96375; 97163; 97167; 97530; 97535; 99285

== ENCOUNTER 2025-06-16 11:09 | Inpatient (IN) | payer OTHER, SELFPAY ==
[2025-06-16] VITALS (12 sets, daily range): BP systolic 123–164; BP diastolic 56–92; BMI 20.9; BMI 21.2
--- NOTE | 2025-06-16 07:20 | EDRN ---
the pts daughter was brought back by triage pivot RN, the pts daughter entered the pts room and the call bartlett went off, this RN entered the pts room and the pts daughter stated, 'I want to speak to the doctor', this RN notified Dr. Ordonez who went
to the pts bedside
--- NOTE | 2025-06-16 07:30 | EDRN ---
the pts call bartlett went off and this RN entered the pts room, the pts daughter stated that the pt needed to go to the bathroom, this RN spoke to the pt and asked the pt if she needed to go to the bathroom and the pt stated, 'I have to pee and i think
i might have to poop', this RN and Sofiya RN placed the pt on the bedpan, the pt was able to urinate but not have a bowel movement, this RN explained the use of the pure wick to the pt and the pt was agreeable to using this, will continue to monitor
the pt closely
--- NOTE | 2025-06-16 07:31 | ED.GENMED ---
History of Present Illness
General
Chief Complaint: Breathing Problem
Time Seen by Provider: 06/16/25 07:16
History of Present Illness
History of Present Illness:
89-year-old female with history of interstitial lung disease, anxiety, congestive heart failure, A-fib on Eliquis, diabetes, hypertension, aortic stenosis presenting to the emergency department for shortness of breath. Patient reports symptoms
started prior to arrival. Per medics, patient wheezing, received 1 albuterol treatment. Also noted to be satting at 91%. Patient lives at home with her daughter. She reports that she is not on any oxygen. Also notes generalized weakness.
Denies associated chest pain. Denies cough or congestion. Denies any known fevers. Patient arrives with DNR paperwork. No additional history or symptoms reported at this time
Past History
Past History
ED Past Medical History: Cancer (breast, with radiation therapy), CVA (April 2021), HTN (labile), NIDDM, Seizures (Possible seizures, abnormal EEG), Psychiatric (major depression), Other (iron deficiency anemia, aortic stenosis, pulmonary
hypertension, seizure) and Other (hiatal hernia)
ED Past Surgical History: Appendectomy, Gynecological (hysterectomy) and Other (left-sided mastectomy 2017, right CEA)
Social History
Tobacco: Other (distant history)
Alcohol: None
Drug: None
Personal:
Living: with family
Employment: Retired
Family History
Family History: Other (reviewed and noncontributory)
Phy Exam
Physical Exam
Physical Exam:
General: Well-appearing, no clinical signs of dehydration, nontoxic and in no acute distress
HEENT: protecting airway
Neck: appears supple
CV: Normal heart rate, regular rhythm
Resp: Mild tachypnea with wheezing and rhonchi bilaterally
Abd: Soft and non-distended, no tenderness to palpation
Extremities: No deformities, no swelling
Neuro: alert, no focal neurologic deficit
: deferred
Rectal: deferred
Psych: Anxious
Skin: Intact
Scores
Heart Failure Risk
Heart Failure Risk Score: Not Applicable
Course
Orders/Labs/Results
Orders:
Orders
06/16/25 Breakfast
Cholesterol Lowering
At Your Request: Limited, Wire Straightener Required
Liquid Modification: Thin Liquids
Cholesterol Lowering: Sodium, 2 Gram
06/16/25 07:18
Electrocardiogram (*1) Urgent
Reason for Study: Chest Pain
CR Chest - 2 Views Urgent
Comment:
Reason For Exam: shortness of breath
06/16/25 07:19
EKG- Treatment ONCE
06/16/25 07:20
Ipratropium/Albuterol Sulfate [Duoneb] 3 ml INH R NOW STA
06/16/25 07:21
COVID-19 Antigen Urgent
Source: Nasal Swab
Complete Blood Count/With Diff Urgent
Comprehensive Metabolic Panel Urgent
Magnesium Urgent
NT-proBNP Urgent
Troponin I Urgent
Influenza A+B Rapid Molecular Urgent
LEROY Source: Nasal Swab
Specimen Description:
Date Specimen was Collected: 06/16/25
Time Specimen was Collected: 07:19
06/16/25 08:30
Azithromycin 500 mg/250 ml [Zithromax Infusion] 500 mg in 250 ml IV NOW
CefTRIAXone [Rocephin] 1,000 mg IV NOW STA
06/16/25 08:34
MethylPREDNISolone PF [Solu-Medrol Pf] 125 mg IV NOW STA
06/16/25 08:49
Urinalysis Reflex To Culture Urgent
Date Specimen was Collected: 06/16/25
Time Specimen was Collected: 07:19
Urine Microscopic Reflex Cult Urgent
Urine Culture Urgent
LEROY Source: U
Specimen Description:
Date Specimen was Collected: 06/16/25
Time Specimen was Collected: 07:19
06/16/25 10:34
Admit/Transfer Patient As Directed
Co-Sign Provider:
Level of Care: Inpatient admission
Assign to:: Telemetry
Physician / Group: Emanuel
Diagnosis: CHF , rule out pneumonia
Reason for Telemetry: Acute Heart Failure
Date to Stop Telemetry: 06/19/25
Time to Stop Telemetry: 11:00
Reason for Hospitalization: see progress note
Expected length of stay greater than two midnights?: Yes
ELOS- Estimated Length of Stay in days: 4
I certify the patient meets the requirements for IP care: Yes
06/16/25 10:35
PRN Pain Medication Management As Directed
May give lesser potent ordered pain med per pt: Yes
preference::
Protocol:: Medication orders for pain may be administered in a
manner that supports deferring to patient preference
when the pt is:
- Requesting an ordered lesser potent pain medication.
Least to most potent pain medications are defined
as: acetaminophen < NSAID < tramadol < opioids
(morphine, oxycodone, hydromorphone).
- Requesting a lesser dose of the same medication IF
ORDERED.
- Requesting a less intrusive route of administration
if both routes are prescribed by the provider (PO <
IV).
06/16/25 10:37
Code Status As Directed
Resuscitation Status: Do not resuscitate
Reached after discussion with pt or family/Healthcare POA: Yes
Physician note:: Discussed with patient at bedside in the ER. She also is accompanied with a POLST with says
DNR. Confirmed with daughter Parvin as well.
DNR Bracelet Application ONCE
06/16/25 10:43
Furosemide [Lasix] 40 mg IV NOW STA
06/16/25 13:03
Acetaminophen [Tylenol] 650 mg PO Q6HPRN PRN DOUGLAS, mild pain, or temp >100.4F
Amiodarone [Pacerone] 200 mg PO DAILY
Apixaban [Eliquis] 2.5 mg PO BID
Capsaicin [Zostrix-Hp 0.075% Cream] 1 applic TOPICAL QID
Dextrose 50%-Water [Dextrose 50% Syringe] 12.5 grams IV [id number] PRN
Docusate Sodium [Colace] 100 mg PO BID
Glucagon [GlucaGen] 1 mg IM PRN PRN
Ipratropium/Albuterol Sulfate [Duoneb] 3 ml INH R Q4HPRN PRN
06/16/25 13:03
CARDIOLOGY CONSULT Routine
Consulting Provider: Elmo Aragon
Was physician already notified: Yes
Reason for consult: CHF
HF DIETARY CONSULT Routine
HF EDUCATOR CONSULT Routine
Comment:
Activity As Directed
Activity Level: As Tolerated
Bedside Glucose Monitoring As Directed
Frequency: AC&HS
Additional Instructions:: Change to q6h if pt on TPN, tube feeding or not eating
Intake/ Output As Directed
Frequency: Per unit guidelines
Patient Education As Directed
Type: CHF folder
Comment: give on admission. Document in Interdisciplinary Education record
Sleep Apnea Assessment by RN As Directed
Comment:
Physician Instructions:
Vital Signs As Directed
Frequency: Other
Additional Instructions:: Q12 or per unit guidelines if more frequent.
Weight As Directed
Frequency: Daily
Type of Scale: Standing Scale
Comment: Daily morning weight. If unable to stand, use balanced bed scale.
Weight As Directed
Frequency: Once
Type of Scale: Standing Scale
Comment: Upon Admission. If unable to stand, use balanced bed scale.
Pulse Ox/cont/shift [RESP] Routine
Quantity: 1
Special Instructions: Daily pulse oximetry at rest. If greater than 92% at rest also obtain pulse oximetry
while ambulating as tolerated.
Ot Eval And Treat Routine
Pt Eval And Treat Routine
Activity Level: As Tolerated
06/16/25 13:25
Alprazolam [Xanax] 0.25 mg PO BIDPRN PRN Anxiety
06/16/25 13:26
Bisacodyl [Dulcolax] 10 mg PO NOW STA
06/16/25 13:30
Insulin Aspart Corrective Low [Novolog Flexpen-Low Resistance] See Protocol SC AC
Magnesium Oxide 500 mg PO BID
Methenamine Hippurate [Hiprex] 1 gram PO BID
Pantoprazole [Protonix] 40 mg PO DAILY
Polyethylene Glycol Powder [Miralax] 17 grams PO DAILY
06/16/25 14:06
Procalcitonin Routine
If negative, will antibiotics be d/c'd or not started: Yes
Does the patient have renal or hepatic impairment?: No
Any recent (w/in 48 hrs) physiologic stress (CPR, rhabdo): No
06/16/25 16:00
Furosemide [Lasix] 40 mg IV BID AT 0800,1600
06/16/25 20:00
Doxycycline [Vibramycin] 100 mg PO Q12
06/16/25 22:00
Lidocaine [Lidocaine 4% Patch] 1 patch TOPICAL HS
Apply Lidocaine patch(s) to:: low back
Melatonin 5 mg PO HS
Ropinirole [Requip] 0.5 mg PO HS
Sennosides [Senokot] 8.6 mg PO HS
06/17/25 06:00
Basic Metabolic Panel IN AM
Cortisol, Random IN AM
Glycohemoglobin (HgbA1c) IN AM
Magnesium IN AM
06/17/25 08:00
Ascorbic Acid [Vitamin C] 500 mg PO DAILY
Cholecalciferol (Vitamin D3) [VITAMIN D3 (cholecalciferol)] 25 mcg PO DAILY
Cyanocobalamin [Vitamin B-12] 1,000 mcg PO DAILY
Lactobac/Bifidobac [Visbiome] 1 cap PO DAILY
Vit C/Vit E/Lutein/Min/[place]-3 [Ocuvite Softgel] 1 cap PO DAILY
06/17/25 10:00
CefTRIAXone [Rocephin] 1,000 mg IV Q24H
06/18/25 06:00
Basic Metabolic Panel IN AM
06/19/25 06:00
Basic Metabolic Panel IN AM
06/19/25 11:00
DC Protocol for Telemetry ONCE
Abnormal Lab Results
06/16/25 06/16/25
07:21 08:49
RBC 4.04 L 10^6/uL
(4.20-5.40)
MCHC 32.0 L g/dL
(33.0-37.0)
RDW 14.9 H %
(11.5-14.5)
Sodium 131 L mmol/L
(135-145)
Glucose 177 H mg/dl
(70-99)
AST 43 H U/L
(14-36)
Urine Ketones 1+ A
(Negative)
Leukocyte Esterase Rfl 1+ A
(Negative)
Urine RBC 7-10 A /HPF
(0-2)
Urine Bacteria (Reflex) Few A
(Negative)
Urine Albumin (Reflex) 2+ A
(Neg - Trace)
06/16/25 07:21
06/16/25 07:21
Vital Signs
Initial and Last Documented VS:
Initial Vital Signs
Temp Pulse Resp BP Pulse Ox
97.7 F 79 20 164/84 91
06/16/25 07:15 06/16/25 07:15 06/16/25 07:15 06/16/25 07:15 06/16/25 07:15
Last Documented Vital Signs
Temp Pulse Resp BP Pulse Ox
97.3 F 90 20 150/92 94
06/16/25 13:16 06/16/25 13:47 06/16/25 13:16 06/16/25 13:47 06/16/25 14:28
MDM/Problems Addressed
MDM/Problems Addressed:
89-year-old female with history of interstitial lung disease, anxiety, congestive heart failure, A-fib on Eliquis, diabetes, hypertension, aortic stenosis presenting for shortness of breath. Vital signs on arrival are significant for high blood
pressure.
On exam, patient is anxious, however no respiratory distress. Mild tachypnea with wheezing and rhonchi bilaterally. Suspect component of acute on chronic interstitial lung disease. Pneumonia is a consideration, however denies cough or fever.
COVID versus influenza is also consideration. Will screen with chest x-ray imaging and laboratory analysis as well as viral swabs. EKG obtained, abnormal, however no change from prior. Patient denies any chest pain without present concern for
ACS. Will treat with DuoNebs and reassess for improvement.
08:30 - Patient's oxygenation continues to fluctuate between high 80s and low 90s. Stable after DuoNeb treatment. Chest x-ray shows evidence of chronic interstitial lung disease with possible bibasilar opacities indicating possible pneumonia.
Given symptoms of dyspnea with history of chronic lung disease, will treat with antibiotics as a community-acquired pneumonia. Plan for admission given respiratory status
*Pulse Oximetry
SaO2: 96
Patient hypoxic: no
*EKG
Interpreted by ED Provider?: Yes
EKG Intrepretation Date: 06/16/25
EKG Intrepretation Time: 07:46
Interpretation: abnormal
Comparison EKG: no changes
Heart Rate: 79
Rate: normal
Rhythm: sinus
[place]: left axis deviation
Interval: normal interval
QRS Pattern: left vent hypertrophy
Ischemia: non-specific ST changes
*Critical Care Note
Total Time (30-74mins, 75-104mins- exclusive of procedures): Not Applicable
ED Attending Note
-
Portions of this chart may have been created with voice recognition software.� Occasional wrong word or��sound alike� substitutions may have occurred due to the inherent limitations of voice recognition software.
Discharge Plan
Departure
Patient Disposition: Admit
Date of Disposition: 06/16/25
Time of Disposition: 08:35
Presentation/result/management discussed w/ accepting MD/DO: Hospitalist
Patient with high blood pressure during this ER visit?: Yes
Condition: Fair
Discharge Problem:
Shortness of breath, Community acquired pneumonia, Hypoxia
Interventions
Interventions:
*Risk Screen - Suicide Last Done: 06/16/25 07:15
*General Assessment Last Done: 06/16/25 07:15
*Neglect/Abuse Screening Last Done: 06/16/25 07:15
*ED- Fall Risk Assessment Last Done: 06/16/25 07:15
*ED COVID-19 Vaccine History Last Done: 06/16/25 07:15
*Nursing Disposition Last Done: 06/16/25 12:44
ED- Cardiac Assessment Last Done: 06/16/25 07:15
ED- Pulmonary Assessment Last Done: 06/16/25 07:15
Discharge Date and Time
Discharge Date/Time: 06/16/25 12:56
[2025-06-16] MEDS: DUONEB 3 ML INH (07:33)
[2025-06-16 07:34] LABS: Hematocrit 37.5 % (37.0-47.0); Hemoglobin 12.0 g/dL (12.0-16.0); Mean Corp Hgb Conc. 32.0 g/dL (33.0-37.0); Mean Corpuscular Volume 92.8 fL (81.0-99.0); Nucleated Red Blood Cells % 0 %; Platelet Count 240 10^3/uL (130-400); Red Cell Dist. Width 14.9 % (11.5-14.5)
[2025-06-16 07:42] LABS: ALT (SGPT) 19 U/L (0-35); AST (SGOT) 43 U/L (14-36); Albumin 4.2 g/dl (3.5-5.0); Alkaline Phosphatase 124 U/L (38-126); Blood Urea Nitrogen 17 mg/dl (7-17); Calcium 9.1 mg/dl (8.4-10.2); Carbon Dioxide 25 mmol/L (22-30); Chloride 98 mmol/L (98-107); Glucose 177 mg/dl (70-99); Magnesium 1.8 mg/dl (1.6-2.3); Potassium 4.4 mmol/L (3.5-5.1); Sodium 131 mmol/L (135-145); Total Protein 7.2 g/dl (6.3-8.2); eGFR > 60.00
[2025-06-16 07:47] LABS: COVID-19 Antigen Negative (Negative)
[2025-06-16 07:53] LABS: Troponin I 0.021 ng/ml
--- NOTE | 2025-06-16 08:15 | EDRN ---
this RN noticed that on 3L NC the pts Sp02 was 91%, this RN notified Dr. Ordonez and titrated the pts 02 up to 6L NC, Sp02 currently 98%
--- NOTE | 2025-06-16 08:46 | EDRN ---
this RN was unable to place PIV, this RN notified IV team
--- NOTE | 2025-06-16 08:53 | EDRN ---
this RN asked the pts daughter for a list of the pts medications and the pts daughter stated to this RN, 'I don't know why you need one, she was just here, it should be in the computer if you looked', this RN explained to the pts daughter that this
RN would like to confirm with a medication list, the pts daughter stated, 'Yeah here fine take it but i want it back please', this RN verified the pts home medications with medication list and handed the medication list back to the pts daughter
--- NOTE | 2025-06-16 08:54 | EDRN ---
IV team nurse at the pts bedside
[2025-06-16 09:09] LABS: Urine Character Clear (Clear)
[2025-06-16] MEDS: ROCEPHIN 1000 MG IV (09:34)
[2025-06-16] MEDS: ZITHROMAX INFUSION 250 IV (09:34)
[2025-06-16] MEDS: SOLU-MEDROL PF 125 MG IV (09:34)
[2025-06-16 09:43] LABS: Urine Squamous Cell 16-20 /LPF (Few)
--- NOTE | 2025-06-16 09:50 | EDRN ---
this RN entered the pts room to administer ordered ABX, the pts daughter stated, 'Why is she getting two antibiotics is that necessary?', this RN notified Dr. Ordonez who spoke to the pts daughter and the pt, the pts daughter also stated to this RN,
'Are you going to feed her, she is hungry and has been here forever', this RN provided the pt with an ER lunch box
--- NOTE | 2025-06-16 10:20 | EDRN ---
hospitalist currently at the pts bedside
--- NOTE | 2025-06-16 11:05 | CON.CAR ---
Addendum entered and electronically signed by Elmo Aragon DO 06/16/25 14:36:
I saw and examined the patient.
The Moveman's note was reviewed and I agree with the note.
Comment:
Plan:
She was recently admitted May 22 to 2024 for a fall nausea weakness poor appetite found to be hyponatremic and had UTI. She was also treated for acute on chronic heart failure with reduced EF. She has severe aortic stenosis and mildly
reduced ejection fraction at 40 to 45%. She underwent gentle diuresis and received Lasix 20 mg at discharge. Admitted with multifactorial dyspnea and hypoxia. She does have 4 pound weight gain. She received albuterol for wheezing. Cardiology
consulted for evaluation for heart failure.
Plan:
proBNP 11,000 with weight up 8 pounds from discharge weight.
Agree with IV diuresis. Gentle diuresis in the setting of severe aortic stenosis as afterload reduction can increase her gradient.
Check daily weights I's and O's and creatinine.
Monitor sodium on Lasix. She was hyponatremic during her past admission.
Hypotension has limited titration of GDMT in the past. She did not tolerate beta-marcia or DAVID inhibitor therapy due to hypotension. She is not a candidate for SGL 2T inhibitors due to UTIs.
Echo last admission was stable at 40 to 45%
Remains in sinus rhythm, continue telemetry
Continue amiodarone and Eliquis. Hemoglobin is stable.
Troponin is negative.
She has a history of abnormal stress test for which she declined cardiac catheterization multiple times in the past.
Discussed with primary service
Original Note:
Consultation
Consultation Request
Date/Time Consultation Requested: 06/16/2025, 1050
Date/Time Consultation Performed: 06/16/2025, 1106
Requesting Provider: Dr Castellanos
Performing Provider: JASON Escalante
Reason for Consultation: SOB
Medical History
-
Chief Complaint: SOB
History of Present Illness:
HPI: Alexandra is an 89-year-old female with medical history of paroxysmal atrial fibrillation, chronic HFmrEF, abnormal stress test, prior CVAs, orthostasis, type 2 diabetes, seizure disorder, prior breast cancer, GERD, carotid stenosis with prior
stenting, hyperlipidemia, dysphagia, and hyponatremia.
Presents today with shortness of breath and hypoxia. She reports more shortness of breath over the past week and has had a 4 pound weight gain. She lives with her daughter who called 911 this morning. Per report she was wheezing on presentation
and received 1 albuterol treatment. Also reports upper abdominal discomfort, no BM x 4 days.
Patient had previous admission to [facility] from cardiology office on 05/22/2025-05/24/2025 for nausea, weakness, poor appetite, and fall at home. She was found to be hyponatremic with a sodium of 124 and had UTI. Also treated for acute on chronic heart
failure with reduced EF. She received gentle IV diuresis and transition to Lasix 20 mg daily on discharge. Echo during admission showed EF 40 to 45%, severe aortic stenosis AV gradient 0.66 mmHg.
ED workup 06/16/2025:
Chest x-ray:Mild patchy bibasilar opacity could represent substance segmental atelectasis and or pneumonia, cannot exclude tiny bilateral pleural effusions.
proBNP 11,000 (was 28723 on 05/22/2025 admission)
Troponin 0.021
NA 131, K4.1, BUN/creatinine 17/0.7, hemoglobin 12.0, WBC 5.7, platelets 240
EKG: Normal sinus rhythm with first-degree AV block, left axis deviation, IVCD. QTc 495 ms
PMH:
Paroxysmal atrial fibrillation
Chronic HFmrEF
Severe aortic stenosis
Hyponatremia
Abnormal stress test
h/o multiple ischemic strokes which have been felt likely to represent small vessel disease and atherosclerosis
Autonomic dysfunction/hypotension/orthostasis treated with midodrine as needed
Type 2 diabetes with diabetic neuropathy
History of seizure disorder
Breast Ca with Radiation Therapy s/p Left Mastectomy
GERD/Hiatal Hernia
Carotid stenosis, right s/p stent
Hypercholesterolemia
RLS
UTIs
Hysterectomy
History of bowel resection
Back surgery
Iron Deficiency
Congenital malformation of esophagus
Postmenopausal atrophic vaginitis
Gait difficulty
Dysphagia
Former smoker
Past Medical History
Past Medical History: Other (in HPI)
Social History
Tobacco: Non-Smoker
Alcohol: None
Drug: None
Personal:
Living: Assisted Living ([facility])
Employment: Retired
Family History
Family History: Reviewed & Not Pertinent
Allergies / Home Medications
Allergy/AdvReac Type Severity Reaction Status Date / Time
codeine Allergy Nausea Verified 05/22/25 12:08
morphine Allergy Unknown Verified 05/22/25 12:08
nitrofurantoin (From Allergy Hives Verified 05/22/25 12:08
Macrobid)
�Medication �Instructions �Recorded �Confirmed �Type
vitamins A,C,D-hzxr-iusndm 4,296 1 cap PO BID Supplement 02/09/22 06/16/25 History
mcg-226 mg-90 mg capsule
(PreserVision AREDS)
amiodarone 200 mg tablet 200 mg PO DAILY #30 tabs 05/30/24 06/16/25 Rx
magnesium oxide 500 mg PO BID #60 tabs 05/31/24 06/16/25 Rx
methenamine hippurate 1 gram tablet 1 g PO BID Urinary Issue 09/08/24 06/16/25 History
ropinirole 0.5 mg tablet 0.5 mg PO HS RESTLESS LEG 09/08/24 06/16/25 History
alprazolam 0.5 mg tablet 0.25 mg (1/2 x 0.5 mg) PO BIDPRN 09/17/24 06/16/25 Rx
PRN Anxiety #6 tabs
apixaban 2.5 mg tablet (Eliquis) 2.5 mg PO BID #0 tabs 09/17/24 06/16/25 Rx
Lactobac no.2-Bifidobac no.1-S. 1 cap PO DAILY Supplement 05/22/25 06/16/25 History
thermo 112.5 billion cell capsule
(Visbiome)
acetaminophen 325 mg tablet 650 mg PO Q6HPRN PRN DOUGLAS, mild 05/22/25 06/16/25 History
pain, or temp >100.4F
ascorbic acid (vitamin C) 500 mg 500 mg PO DAILY Supplement 05/22/25 06/16/25 History
tablet (Vitamin C)
cholecalciferol (vitamin D3) 25 25 mcg PO DAILY Supplement 05/22/25 06/16/25 History
mcg (1,000 unit) tablet (Vitamin
D3)
cyanocobalamin (vitamin B-12) 1,000 mcg PO DAILY Supplement 05/22/25 06/16/25 History
1,000 mcg tablet
lidocaine 4 % topical patch 1 patch topical HS lower back 05/22/25 06/16/25 History
melatonin 5 mg tablet 5 mg PO HS Sleep 05/22/25 06/16/25 History
metformin 500 mg tablet 500 mg PO BID Diabetes 05/22/25 06/16/25 History
polyethylene glycol 3350 17 gram 17 g PO DAILY Constipation 05/22/25 06/16/25 History
oral powder packet (Miralax)
capsaicin 0.075 % topical cream 1 applic topical QID #120 grams 05/24/25 06/16/25 Rx
(Arthritis Pain Relief (capsaicin))
cefdinir 300 mg capsule 300 mg PO Q12H 6 days #12 caps 05/24/25 06/16/25 Rx
furosemide 20 mg tablet 20 mg PO DAILY 30 days #30 tabs 05/24/25 06/16/25 Rx
pantoprazole 40 mg tablet,delayed 40 mg PO DAILY #30 tabs 05/24/25 06/16/25 Rx
release
Review of Systems
-
History Source: Patient
All other systems: Negative unless noted
Physical Exam
Vital Signs
Temp Pulse Resp BP Pulse Ox
97.7 F 79 20 146/81 99
06/16/25 07:15 06/16/25 09:52 06/16/25 09:52 06/16/25 09:52 06/16/25 09:52
Lab Results
06/16/25 07:21
06/16/25 07:21
Troponin I 0.021 ng/ml 06/16/25 07:21
Txq-E-Cgxnzkxogtx Pept 81970 pg/ml 06/16/25 07:21
GEN: No distress, awake, Ox3
HEENT: supple, anicteric, mmm, positive JVD
LUNGS: Rales at bases
CV: Reg, S1/S2, 3 out of 6 systolic ejection murmur
ABD: soft, BS+, NT/ND
EXT: No edema
NEURO: Gross non-focal
SKIN: No rash
Impression / Plan
-
Primary Canceling And Cutting Control Clerk: Dr. Funes
Assessment:
Shortness of breath
Weight gain
Concern for pneumonia
Acute on chronic heart failure mildly reduced EF
Severe aortic stenosis
Hyponatremia
UTI
Elevated troponin
Paroxysmal atrial fibrillation
CM EF 40-45% Apr 2024
Abnormal stress test, patient has declined cardiac catheterization on multiple occasions as OP
h/o multiple ischemic strokes which have been felt likely to represent small vessel disease and atherosclerosis
Autonomic dysfunction/hypotension/orthostasis treated with midodrine as needed
Carotid stenosis, right s/p stent
Hypercholesterolemia
Type 2 diabetes with diabetic neuropathy
History of seizure disorder
Breast Ca with Radiation Therapy s/p Left Mastectomy
GERD/Hiatal Hernia
RLS
UTIs
PSH: Hysterectomy /History of bowel resection/ Back surgery
Iron Deficiency
Congenital malformation of esophagus
Gait difficulty
Dysphagia
Former smoker
Echo 05/15/2024: EF 40 to 45%, global hypokinesis, stage II diastolic dysfunction, MAC, mild MR, mild to moderate with peak/mean gradients 27/18 mmHg, KAYLE[place] 1.4 cm�, trace AR
ECHO 05/25/2024: EF 40 to 45%, apex, inferolateral, inferior and anterior perez are hypokinetic, appears stable compared to prior.
Echo 09/08/2024: EF 40-45%, inferior, inferolateral, anterior, and apical hypokinesis. Mild MS, MAC, mild MR, moderate to severe (57/32 mmHg), mild to moderate TR, mild pulmonary hypertension PASP 43 mmHg
Echo 05/23/2025: LVEF 40 to 45%, normal RV size and function, severe , KAYLEIGH 0.6 cm�, mild MS, mild MR, mild TR, PAP 45 mmHg
Plan:
Alexandra presents with a 1 week history of worsening shortness of breath, 4 pound weight gain, and an acute worsening of shortness of breath this morning requiring 911 call, initially found to be wheezing and received albuterol. Her history is notable
for severe aortic stenosis, chronic heart failure mildly reduced EF, paroxysmal atrial fibrillation, abnormal stress test, prior CVAs, orthostasis, type 2 diabetes, seizure disorder, prior breast cancer, GERD, carotid stenosis with prior stenting,
hyperlipidemia, dysphagia, and hyponatremia.
proBNP elevated at 11,000, troponin mildly elevated, chest x-ray concerning for atelectasis versus pneumonia, EKG showing normal sinus rhythm.
Plan:
Acute on chronic heart failure mildly reduced EF
-proBNP 11,000
-Weight today up 8 pounds from discharge weight on 05/24/2025 when it was 129 pounds
-Agree with IV diuresis, gentle diuresis in setting of severe
-admit to telemetry
-daily wt, I&O
-monitor Na on Lasix, previously Na as low as 124
-Hypotension has limited up titration of GDMT in past. Did not tolerate Toprol or DAVID inhibitor in the past due to hypotension. Patient is current on Lasix only. She is not candidate for SGLT2 due to history of UTIs.
-She was previously on midodrine for BP support. Not currently on med.
- Echo last admission with stable EF 40 to 45% 04/2025
History of paroxysmal A-fib
- Maintained in sinus rhythm on review of telemetry
- Continue outpatient amiodarone 200 mg daily
- Continue outpatient Eliquis 2.5 mg twice daily
- No bleeding/bruising concerns on Eliquis. Hemoglobin stable 12.0
Elevated troponin
- Trend to peak
- Denies chest pain
- EKG without ischemic changes
- She has a history of abnormal stress test for which she has declined cardiac catheterization on multiple occasions as an outpatient.
Data Reviewed
-
EKG: Tracing Personally Visualized and interpreted
Medical Tests (Nuc Med, Echo etc): Image Personally Visualized and interpreted
Labs: Labs Reviewed by me
Old Records: Reviewed
--- NOTE | 2025-06-16 12:09 | CM ---
CM reviewed chart and met with pt bedside in ED. Lives with her daughter in 2 story home, [address].
Independent in most ADLs, daughter assists with shower, ambulates with RW. Has shower chair and grab bars.
Confirms prescription coverage
Hx [facility], no hx SNF. Had recent respite care stay at [facility].
PCP: Nuzhat Zhu
Pharmacy; [facility]
CM will continue to follow for all discharge planning needs.
[2025-06-16] MEDS: LASIX 40 MG IV ×2 (12:38→16:37)
[2025-06-16] MEDS: MIRALAX 17 GRAMS PO (13:44)
[2025-06-16] MEDS: COLACE 100 MG PO (13:45)
[2025-06-16] MEDS: HIPREX 1 GRAM PO ×2 (13:45→21:06)
[2025-06-16] MEDS: PROTONIX 40 MG PO (13:45)
[2025-06-16] MEDS: MAGNESIUM OXIDE 500 MG PO ×2 (13:46→21:10)
[2025-06-16] MEDS: DULCOLAX 10 MG PO (13:46)
[2025-06-16] MEDS: ELIQUIS 2.5 MG PO ×2 (13:47→21:04)
[2025-06-16] MEDS: PACERONE 200 MG PO (13:47)
[2025-06-16] MEDS: XANAX 0.25 MG PO ×2 (13:47→21:04)
[2025-06-16] MEDS: ZOSTRIX-HP 0.075% CREAM TOPICAL ×2 (13:47→17:32)
[2025-06-16 13:56] LABS: Glucose - Point of Care 291 mg/dl (70-99)
[2025-06-16] MEDS: NOVOLOG FLEXPEN-LOW RESISTANCE SC (14:05)
--- NOTE | 2025-06-16 14:30 | PTCARENOTE ---
Received pt from ER via stretcher, accompanied by ER staff. Pt AAO x3, very anxious/tearful. BREAUX; weak; unable to stand to transfer to bed. Pt transferred from stretcher with assist x3. Placed on telemetry:NSR. Currently on nc 4 lpm- pt with
(+) JEAN BAPTISTE/tachypnea/orthopnea; c/o 'I can't breathe!' Pulseox 94%, HOB elevated 45 degrees with good effect. Abd soft, rounded, pt c/o 'No BM x 4 days'. Purewick placed d/t pt's JEAN BAPTISTE/cannot stand to transfer- draining clear yellow urine. Afebrile;
skin W/D/I. Oriented to 4east, currently resting in bed. Will continue to monitor.
[2025-06-16 15:08] LABS: Procalcitonin < 0.05 ng/ml (0.0-0.25)
--- NOTE | 2025-06-16 16:24 | PTCARENOTE ---
Pt currently OOB in chair with assist x2/walker, weak/unsteady with OOB activity. VSS. Telemetry:NSR. On nc 4 lpm- pulseox 100%; nc decreased to 2 lpm. Pt with (+) JEAN BAPTISTE/tachypnea. Voiding/incont large amts clear yellow urine. Will continue to
monitor.
[2025-06-16 17:20] LABS: Glucose - Point of Care 426 mg/dl (70-99)
[2025-06-16] MEDS: TYLENOL 650 MG PO (18:23)
[2025-06-16 18:26] LABS: Glucose 395 mg/dl (70-99)
[2025-06-16] MEDS: NOVOLOG FLEXPEN-LOW RESISTANCE 5 UNITS SC (18:33)
[2025-06-16] MEDS: SENOKOT PO (20:26)
[2025-06-16] MEDS: COLACE PO (20:26)
[2025-06-16] MEDS: VIBRAMYCIN 100 MG PO (20:29)
[2025-06-16] MEDS: REQUIP 0.5 MG PO (20:31)
[2025-06-16] MEDS: ZOSTRIX-HP 0.075% CREAM 1 APPLIC TOPICAL (20:34)
[2025-06-16 20:37] LABS: Glucose - Point of Care 506 mg/dl (70-99)
[2025-06-16] MEDS: MELATONIN 5 MG PO (21:04)
[2025-06-16 21:29] LABS: Glucose 441 mg/dl (70-99)
[2025-06-16] MEDS: NOVOLOG FLEXPEN 6 UNITS SC (21:48)
[2025-06-16 23:54] LABS: Glucose - Point of Care 355 mg/dl (70-99)
[2025-06-17] VITALS (7 sets, daily range): BP systolic 107–141; BP diastolic 57–73; PULSE 72–77; O2SAT 100; BMI 19.9
[2025-06-17] MEDS: NOVOLOG FLEXPEN 5 UNITS SC (00:05)
[2025-06-17 02:15] LABS: Glucose - Point of Care 245 mg/dl (70-99)
[2025-06-17] MEDS: TYLENOL 650 MG PO (03:30)
[2025-06-17] MEDS: VISBIOME 1 CAP PO (07:21)
[2025-06-17] MEDS: VITAMIN B-12 1000 MCG PO (07:21)
[2025-06-17] MEDS: HIPREX 1 GRAM PO ×2 (07:21→19:26)
[2025-06-17] MEDS: PROTONIX 40 MG PO (07:21)
[2025-06-17] MEDS: MAGNESIUM OXIDE 500 MG PO ×2 (07:21→19:27)
[2025-06-17] MEDS: VITAMIN C 500 MG PO (07:21)
[2025-06-17] MEDS: COLACE 100 MG PO (07:22)
[2025-06-17] MEDS: VITAMIN D3 (cholecalciferol) 25 MCG PO (07:22)
[2025-06-17] MEDS: VIBRAMYCIN 100 MG PO (07:22)
[2025-06-17] MEDS: PACERONE 200 MG PO (07:22)
[2025-06-17] MEDS: OCUVITE SOFTGEL 1 CAP PO (07:22)
[2025-06-17] MEDS: ELIQUIS 2.5 MG PO ×2 (07:22→19:26)
[2025-06-17 07:24] LABS: Glucose - Point of Care 147 mg/dl (70-99)
[2025-06-17] MEDS: NOVOLOG FLEXPEN-LOW RESISTANCE SC (07:24)
[2025-06-17] MEDS: MIRALAX 17 GRAMS PO (07:27)
[2025-06-17] MEDS: ZOSTRIX-HP 0.075% CREAM 1 APPLIC TOPICAL ×3 (07:32→17:09)
--- NOTE | 2025-06-17 09:49 | W.PN.CARDCBS ---
Today's Communication / Plan
-
Feels much better with diuresis. Would diurese for another 24 hours with IV Lasix.
Creatinine is normal. She has baseline hyponatremia. Last sodium was 131. Continue to follow.
Plan for severe aortic stenosis is conservative therapy.
She remains in sinus rhythm. Continue amiodarone and Eliquis.
Will consider discontinuing antibiotics as no fever or white count and clinically improved with diuresis.
Impression / Plan
-
Primary Superintendent Drilling: Dr. Funes
Assessment:
Shortness of breath
Weight gain
Concern for pneumonia
Acute on chronic heart failure mildly reduced EF
Severe aortic stenosis
Hyponatremia
UTI
Elevated troponin
Paroxysmal atrial fibrillation
CM EF 40-45% Apr 2024
Abnormal stress test, patient has declined cardiac catheterization on multiple occasions as OP
h/o multiple ischemic strokes which have been felt likely to represent small vessel disease and atherosclerosis
Autonomic dysfunction/hypotension/orthostasis treated with midodrine as needed
Carotid stenosis, right s/p stent
Hypercholesterolemia
Type 2 diabetes with diabetic neuropathy
History of seizure disorder
Breast Ca with Radiation Therapy s/p Left Mastectomy
GERD/Hiatal Hernia
RLS
UTIs
PSH: Hysterectomy /History of bowel resection/ Back surgery
Iron Deficiency
Congenital malformation of esophagus
Gait difficulty
Dysphagia
Former smoker
Echo 05/15/2024: EF 40 to 45%, global hypokinesis, stage II diastolic dysfunction, MAC, mild MR, mild to moderate with peak/mean gradients 27/18 mmHg, KAYLEIGH 1.4 cm�, trace AR
ECHO 05/25/2024: EF 40 to 45%, apex, inferolateral, inferior and anterior perez are hypokinetic, appears stable compared to prior.
Echo 09/08/2024: EF 40-45%, inferior, inferolateral, anterior, and apical hypokinesis. Mild MS, MAC, mild MR, moderate to severe (57/32 mmHg), mild to moderate TR, mild pulmonary hypertension PASP 43 mmHg
Echo 05/23/2025: LVEF 40 to 45%, normal RV size and function, severe , KAYLEIGH 0.6 cm�, mild MS, mild MR, mild TR, PAP 45 mmHg
Plan:
Alexandra presents with a 1 week history of worsening shortness of breath, 4 pound weight gain, and an acute worsening of shortness of breath this morning requiring 911 call, initially found to be wheezing and received albuterol. Her history is notable
for severe aortic stenosis, chronic heart failure mildly reduced EF, paroxysmal atrial fibrillation, abnormal stress test, prior CVAs, orthostasis, type 2 diabetes, seizure disorder, prior breast cancer, GERD, carotid stenosis with prior stenting,
hyperlipidemia, dysphagia, and hyponatremia.
proBNP elevated at 11,000, troponin mildly elevated, chest x-ray concerning for atelectasis versus pneumonia, EKG showing normal sinus rhythm.
Plan:
Acute on chronic heart failure mildly reduced EF
-Clinically she is improved and is diuresing. Will continue IV Lasix for another 24 hours. Previous dry weight was in the 125-127 range.
-Plan is for conservative therapy for end-stage severe aortic stenosis.
-Hypotension has limited up titration of GDMT in past. Did not tolerate Toprol or DAVID inhibitor in the past due to hypotension. Patient is current on Lasix only. She is not candidate for SGLT2 due to history of UTIs.
-She was previously on midodrine for BP support. Not currently on med.
- Echo last admission with stable EF 40 to 45% 04/2025
History of paroxysmal A-fib
- Maintained in sinus rhythm on review of telemetry
- Continue outpatient amiodarone 200 mg daily
- Continue outpatient Eliquis 2.5 mg twice daily
- No bleeding/bruising concerns on Eliquis. Hemoglobin stable 12.0
Elevated troponin
- Continue conservative therapy.
- Denies chest pain
- EKG without ischemic changes
- She has a history of abnormal stress test for which she has declined cardiac catheterization on multiple occasions as an outpatient.
Patient is afebrile with a normal white blood cell count. Will consider stopping antibiotics.
Progress Note - Superintendent Drilling
Subjective
Date of Service: June 17, 2025
Breathing is improved no chest pains. Weight is down.
Objective
Labs:
06/16/25 07:21
Labs
Hgb 12.0 g/dL (12.0-16.0) 06/16/25 07:21
Hct 37.5 % (37.0-47.0) 06/16/25 07:21
Plt Count 240 10^3/uL (130-400) 06/16/25 07:21
Sodium Cancelled 06/17/25 07:27
Potassium Cancelled 06/17/25 07:27
BUN Cancelled 06/17/25 07:27
Creatinine Cancelled 06/17/25 07:27
Glucose Cancelled 06/17/25 07:27
Troponins
06/16/25
07:21
Troponin I 0.021
Vital Signs and I&O:
Vital Signs
Temp Pulse Resp BP Pulse Ox
98.5 F 70 18 137/71 100
06/17/25 07:20 06/17/25 07:22 06/17/25 07:20 06/17/25 07:22 06/17/25 09:09
Vital Signs
Temp Pulse Resp BP Pulse Ox
98.5 F 70 18 137/71 100
06/17/25 07:20 06/17/25 07:22 06/17/25 07:20 06/17/25 07:22 06/17/25 09:09
Intake & Output
06/15/25 06/16/25 06/17/25 06/18/25
06:59 06:59 06:59 06:59
Intake Total 840 / 840
Output Total 1500 / 1500
Balance -660 / -660
Physical Exam
Physical Exam
GEN: No distress, awake,
HEENT: supple, anicteric, mmm
LUNGS: CTA, no wheezes/rales
CV: Reg, S1/S2, 2/6 syst LSB, S3+
ABD: soft, BS+, NT/ND
EXT: No edema
NEURO: Gross non-focal
SKIN: No rash
[2025-06-17] MEDS: ROCEPHIN 1000 MG IV (09:59)
[2025-06-17] MEDS: LASIX 40 MG IV ×2 (09:59→15:28)
[2025-06-17] MEDS: STERILE WATER FOR INJECTION 10 ML IV (09:59)
[2025-06-17 10:12] LABS: Blood Urea Nitrogen 20 mg/dl (7-17); Calcium 9.2 mg/dl (8.4-10.2); Carbon Dioxide 23 mmol/L (22-30); Chloride 97 mmol/L (98-107); Estimated Creatinine Clearance 51 ml/min; Glucose 248 mg/dl (70-99); Magnesium 2.1 mg/dl (1.6-2.3); Potassium 4.3 mmol/L (3.5-5.1); Sodium 132 mmol/L (135-145); eGFR > 60.00
[2025-06-17 10:43] LABS: Cortisol, Random 3.4 ug/dl
--- NOTE | 2025-06-17 10:52 | W.PN.HOSP.TC ---
Today's Communication/Plan
-
CW IV Diuresis
DC ABX
Assessment / Plan
Assessment / Plan
Acute on chronic heart failure with midrange EF
Improved shortness of breath. Resolved hypoxia. Improving rate on IV Lasix.
Appreciate cardiology input.
Clinically no respiratory symptoms suggestive of pneumonia, afebrile, white count was normal. Procalcitonin is normal. Hold further antibiotics.
Paroxysmal atrial fibrillation-continue with her amiodarone and Eliquis
Severe aortic stenosis-cardiology recommends conservative treatment
Diabetes mellitus type 2
Elevated blood sugars secondary to steroids given in the ER
Continue sliding scale insulin. Hold metformin for now.
DNR DNI
Anticipated Discharge: 24 - 48 hours
Subjective/Interval History
-
Date of Service: June 17, 2025
Feels much better. Off of oxygen. Denies shortness of breath at rest. No chest pain. No palpitation. No nausea vomiting. No lightheadedness.
Objective Data
-
Labs:
Laboratory Results
06/17/25 06/17/25
07:27 09:47
Sodium Cancelled 132 L
Potassium Cancelled 4.3
Chloride Cancelled 97 L
Carbon Dioxide Cancelled 23
BUN Cancelled 20 H
Creatinine Cancelled 0.7
Glucose Cancelled 248 H
Calcium Cancelled 9.2
Vital Signs:
Vital Signs
Temp Pulse Resp BP Pulse Ox
98.5 F 72 18 115/59 100
06/17/25 07:20 06/17/25 09:59 06/17/25 07:20 06/17/25 09:59 06/17/25 09:09
I&O
06/16/25 06/17/25 06/18/25
06:59 06:59 06:59
Intake Total 840 / 840
Output Total 1500 / 1500
Balance -660 / -660
Physical Exam
-
General: Comfortable
Respiratory: Clear to Auscultation and Non Labored Respirations; Negative Accessory Resp Muscle Use
Cardiac: Regular Rhythm and S1/S2; Negative Tachycardic
GI: Soft
Neuro: AO x 3
Psych: Calm
Data Reviewed
-
Labs: Labs Reviewed by me
--- NOTE | 2025-06-17 10:56 | HPS.HSE ---
Family Physician
-
Family Physician: Nuzhat Zhu, DO
Chief Complaint
-
Shorntess of breath
History of Present Illness
Patient was seen yesterday in the ER for progressive shortness of breath. Case was as well discussed with the daughter. This is a late note entry.
Patient has a history of chronic heart failure and severe arctic stenosis.
He lives with daughter.
Was in [facility] last month for UTI and heart failure exacerbation.
Was getting progressively worse with regards to breathing this week. She was also having trouble breathing when she lies down. No chest pain or palpitation. No cough or fevers.
Daughter noticed shortness of breath 2 apparently. She checked her oxygen levels and they were low in 80s so she called an ambulance.
No nausea or vomiting.
She has got significant large hiatus hernia at times fails dysphagia. She has also been constipated for 4 days and is taking MiraLAX without much help.
Medical History
Past Medical History
Past Medical History: Reports Other
Additional Past Medical History:
Hypertension, diabetes, breast cancer, type 2 diabetes, hiatal hernia, right carotid stenosis, GERD, seizures, hypercholesterolemia, CVA, restless leg syndrome, UTI, CHF, iron deficiency anemia, CVA
Past Surgical History: Reports Other
Additional Past Surgical History:
Left mastectomy, right carotid artery stent, hysterectomy, bowel resection, back surgery,
Social History
Tobacco: Non-smoker
Alcohol: None
Drug: None
Living: With Family
Family History
Family History: Not pertinent
Allergies / Home Medications
Allergies reflects when Allergies were last updated in [facility].
Home Medications with original date entered in [facility]
Allergy/Medication List:
Allergies
Allergy/AdvReac Type Severity Reaction Status Date / Time
codeine Allergy Nausea Verified 05/22/25 12:08
morphine Allergy Unknown Verified 05/22/25 12:08
nitrofurantoin (From Allergy Hives Verified 05/22/25 12:08
Macrobid)
Home Medications
vitamins A,C,B-qbas-qhkoeg 4,296 mcg-226 mg-90 mg capsule (PreserVision AREDS) 1 cap PO BID Supplement 02/09/22
amiodarone 200 mg tablet 200 mg PO DAILY #30 tabs 05/30/24
magnesium oxide 500 mg PO BID #60 tabs 05/31/24
methenamine hippurate 1 gram tablet 1 g PO BID 09/08/24
ropinirole 0.5 mg tablet 0.5 mg PO HS 09/08/24
alprazolam 0.5 mg tablet 0.25 mg (1/2 x 0.5 mg) PO BIDPRN PRN Anxiety #6 tabs 09/17/24
apixaban 2.5 mg tablet (Eliquis) 2.5 mg PO BID #0 tabs 09/17/24
Lactobac no.2-Bifidobac no.1-S. thermo 112.5 billion cell capsule (Visbiome) 1 cap PO DAILY 05/22/25
acetaminophen 325 mg tablet 650 mg PO Q6HPRN PRN DOUGLAS, mild pain, or temp >100.4F 05/22/25
ascorbic acid (vitamin C) 500 mg tablet (Vitamin C) 500 mg PO DAILY 05/22/25
cholecalciferol (vitamin D3) 25 mcg (1,000 unit) tablet (Vitamin D3) 25 mcg PO DAILY 05/22/25
cyanocobalamin (vitamin B-12) 1,000 mcg tablet 1,000 mcg PO DAILY 05/22/25
furosemide 40 mg tablet 40 mg PO DAILY 05/22/25
lidocaine 4 % topical patch 1 patch topical HS lower back 05/22/25
melatonin 5 mg tablet 5 mg PO HS 05/22/25
metformin 500 mg tablet 500 mg PO BID 05/22/25
polyethylene glycol 3350 17 gram oral powder packet (Miralax) 17 g PO DAILY 05/22/25
Review of Systems
-
A 12 point ROS was completed and negative except as noted: Yes
Physical Exam
Vital Signs
Vital Signs
Temp Pulse Resp BP Pulse Ox
98.5 F 72 18 115/59 100
06/17/25 07:20 06/17/25 09:59 06/17/25 07:20 06/17/25 09:59 06/17/25 09:09
Physical Exam
General: Comfortable
Respiratory: Crackles (Bibasilar) and Non Labored Respirations; No Wheezes or Accessory Resp Muscle Use
Cardiac: S1/S2, Regular Rhythm and Murmur (Systolic)
Musculoskeletal: No Edema
Neuro: AO x 3
Psych: Calm
Laboratory Results
-
06/16/25 07:21
06/17/25 09:47
Laboratory Results
Total Bilirubin 0.8 mg/dl (0.2-1.3) 06/16/25 07:21
AST 43 U/L (14-36) H 06/16/25 07:21
ALT 19 U/L (0-35) 06/16/25 07:21
Alkaline Phosphatase 124 U/L (38-126) 06/16/25 07:21
Troponin I 0.021 ng/ml 06/16/25 07:21
Data Reviewed
-
Diagnostic Radiology: Report Reviewed by me (Chest x-ray)
Lab Data: Labs Reviewed by me
Impression/Plan
-
Progressive shortness of breath with orthopnea-patient without any respiratory symptoms of pneumonia, afebrile, white count was normal. Chest x-ray Some mild patchy bibasilar opacity which could represent subsegmental atelectasis and/or pneumonia.
Cannot exclude tiny bilateral pleural effusions. BNP remains significantly high. Weight has gone up by 8 pounds since discharge. Clinically doubt pneumonia suspect more heart failure.
Admit to telemetry
Start on IV diuresis
Continue antibiotics with today. Check a procalcitonin if negative discontinue antibiotics.
Consult cardiology. Follow on telemetry.
Recent echo showed EF of 40 to 45%.
Severe arctic stenosis-continue with conservative management.
Hyponatremia-suspect CHF related. Continue following dialysis
Constipation-had Colace and senna to her MiraLAX
Diabetes mellitus type 2-hold metformin. Started sliding scale insulin.
DNR/DNI
Per patient wishes which was confirmed with daughter yesterday on the phone
[2025-06-17] MEDS: LIDOCAINE 4% PATCH 1 PATCH TOPICAL (11:16)
[2025-06-17 11:19] LABS: Glucose - Point of Care 213 mg/dl (70-99)
[2025-06-17] MEDS: NOVOLOG FLEXPEN-LOW RESISTANCE 2 UNITS SC ×2 (11:21→17:09)
[2025-06-17] MEDS: XANAX 0.25 MG PO ×2 (11:58→23:00)
--- NOTE | 2025-06-17 12:24 | CM ---
CM reviewed chart, patient seen bedside with son and DIL.
PT/OT rec SNF vs HH, patient would like to return home with home care- has had [facility] in past, will send referral in [facility].
Patient off O2.
CM will continue to follow for all discharge planning needs.
Plan; home with daughter, referral to [facility]
[2025-06-17 16:15] LABS: Glucose - Point of Care 228 mg/dl (70-99)
[2025-06-17] MEDS: REQUIP 0.5 MG PO (17:10)
[2025-06-17] MEDS: COLACE PO (19:25)
[2025-06-17] MEDS: SENOKOT PO (19:25)
[2025-06-17] MEDS: REMOVE LIDOCAINE PATCH 1 PATCH REMOVE (19:30)
[2025-06-17 21:21] LABS: Glucose - Point of Care 153 mg/dl (70-99)
[2025-06-17] MEDS: ZOSTRIX-HP 0.075% CREAM TOPICAL (23:00)
[2025-06-17] MEDS: MELATONIN 10 MG PO (23:00)
[2025-06-18] VITALS (7 sets, daily range): BP systolic 106–140; BP diastolic 50–82; PULSE 79; O2SAT 97; BMI 19.6
[2025-06-18 07:34] LABS: Glucose - Point of Care 152 mg/dl (70-99)
[2025-06-18] MEDS: NOVOLOG FLEXPEN-LOW RESISTANCE 1 UNITS SC (09:08)
[2025-06-18] MEDS: COLACE 100 MG PO ×2 (09:09→22:05)
[2025-06-18] MEDS: ELIQUIS 2.5 MG PO ×2 (09:09→22:06)
[2025-06-18] MEDS: HIPREX 1 GRAM PO ×2 (09:10→22:07)
[2025-06-18] MEDS: LASIX 40 MG IV ×2 (09:10→17:24)
[2025-06-18] MEDS: FLUSH (NSS) 1 FLUSH IV ×3 (09:10→17:25)
[2025-06-18] MEDS: VITAMIN B-12 1000 MCG PO (09:11)
[2025-06-18] MEDS: MAGNESIUM OXIDE 500 MG PO ×2 (09:11→22:07)
[2025-06-18] MEDS: OCUVITE SOFTGEL 1 CAP PO (09:11)
[2025-06-18] MEDS: PROTONIX 40 MG PO (09:11)
[2025-06-18] MEDS: ZOSTRIX-HP 0.075% CREAM 1 APPLIC TOPICAL ×3 (09:11→17:25)
[2025-06-18] MEDS: PACERONE 200 MG PO (09:13)
[2025-06-18] MEDS: LIDOCAINE 4% PATCH 1 PATCH TOPICAL (09:13)
[2025-06-18] MEDS: VISBIOME 1 CAP PO (09:13)
[2025-06-18] MEDS: VITAMIN D3 (cholecalciferol) 25 MCG PO (09:13)
[2025-06-18] MEDS: VITAMIN C 500 MG PO (09:13)
[2025-06-18] MEDS: MIRALAX 17 GRAMS PO (09:14)
[2025-06-18] MEDS: NSS (PRESERVATIVE FREE) 1 ML IV (10:27)
[2025-06-18] MEDS: CORTROSYN 0.25 MG IV (10:27)
[2025-06-18 10:59] LABS: Blood Urea Nitrogen 19 mg/dl (7-17); Calcium 9.2 mg/dl (8.4-10.2); Carbon Dioxide 25 mmol/L (22-30); Chloride 96 mmol/L (98-107); Estimated Creatinine Clearance 50 ml/min; Glucose 279 mg/dl (70-99); Potassium 4.5 mmol/L (3.5-5.1); Sodium 131 mmol/L (135-145); eGFR > 60.00
[2025-06-18 11:02] LABS: ACTH Stim Cortisol 0 Min 19.2 ug/dl
--- NOTE | 2025-06-18 11:10 | W.PN.CARDCBS ---
Today's Communication / Plan
-
Continue IV Lasix and consider change to oral Lasix on Tuesday 06/19
Weight is 129 pounds and was felt to be dry weight of 125-127 pounds in the past.
Impression / Plan
-
Primary Shrimp Trawler Captain: Dr. Funes
Assessment:
Shortness of breath
Weight gain
Concern for pneumonia
Acute on chronic heart failure mildly reduced EF
Severe aortic stenosis
Hyponatremia
UTI
Elevated troponin, nonmyocardial ischemic injury
Paroxysmal atrial fibrillation
CM EF 40-45% Apr 2024
Abnormal stress test, patient has declined cardiac catheterization on multiple occasions as OP
h/o multiple ischemic strokes which have been felt likely to represent small vessel disease and atherosclerosis
Autonomic dysfunction/hypotension/orthostasis treated with midodrine as needed
Carotid stenosis, right s/p stent
Hypercholesterolemia
Type 2 diabetes with diabetic neuropathy
History of seizure disorder
Breast Ca with Radiation Therapy s/p Left Mastectomy
GERD/Hiatal Hernia
RLS
UTIs
PSH: Hysterectomy /History of bowel resection/ Back surgery
Iron Deficiency
Congenital malformation of esophagus
Gait difficulty
Dysphagia
Former smoker
Echo 05/15/2024: EF 40 to 45%, global hypokinesis, stage II diastolic dysfunction, MAC, mild MR, mild to moderate with peak/mean gradients 27/18 mmHg, KAYLEIGH 1.4 cm�, trace AR
ECHO 05/25/2024: EF 40 to 45%, apex, inferolateral, inferior and anterior perez are hypokinetic, appears stable compared to prior.
Echo 09/08/2024: EF 40-45%, inferior, inferolateral, anterior, and apical hypokinesis. Mild MS, MAC, mild MR, moderate to severe (57/32 mmHg), mild to moderate TR, mild pulmonary hypertension PASP 43 mmHg
Echo 05/23/2025: LVEF 40 to 45%, normal RV size and function, severe , KAYLEIGH 0.6 cm�, mild MS, mild MR, mild TR, PAP 45 mmHg
Plan:
Her weight is down to 129 pounds. Dry weight was felt to be 125 to 127 pounds in the past
Will continue IV Lasix for today and consider change to oral Lasix in AM.
Hypotension has limited up titration of GDMT in past. Did not tolerate Toprol or DAVID inhibitor in the past due to hypotension. Patient is current on Lasix only. She is not candidate for SGLT2 due to history of UTIs.
She was previously on midodrine for BP support. Not currently on med.
She remains in sinus rhythm.
Continue amiodarone and Eliquis
She has a history of abnormal stress test for which she has declined cardiac catheterization on multiple occasions as an outpatient.
PREADMIT DATA
Alexandra presents with a 1 week history of worsening shortness of breath, 4 pound weight gain, and an acute worsening of shortness of breath this morning requiring 911 call, initially found to be wheezing and received albuterol. Her history is notable
for severe aortic stenosis, chronic heart failure mildly reduced EF, paroxysmal atrial fibrillation, abnormal stress test, prior CVAs, orthostasis, type 2 diabetes, seizure disorder, prior breast cancer, GERD, carotid stenosis with prior stenting,
hyperlipidemia, dysphagia, and hyponatremia.
proBNP elevated at 11,000, troponin mildly elevated, chest x-ray concerning for atelectasis versus pneumonia, EKG showing normal sinus rhythm.
Progress Note - Shrimp Trawler Captain
Subjective
Date of Service: June 18, 2025
No complaints.
Objective
Labs:
06/16/25 07:21
06/18/25 09:49
Labs
Hgb 12.0 g/dL (12.0-16.0) 06/16/25 07:21
Hct 37.5 % (37.0-47.0) 06/16/25 07:21
Plt Count 240 10^3/uL (130-400) 06/16/25 07:21
Sodium 131 mmol/L (135-145) L 06/18/25 09:49
Potassium 4.5 mmol/L (3.5-5.1) 06/18/25 09:49
BUN 19 mg/dl (7-17) H 06/18/25 09:49
Creatinine 0.7 mg/dL (0.6-1.0) 06/18/25 09:49
Glucose 279 mg/dl (70-99) H 06/18/25 09:49
Troponins
06/16/25
07:21
Troponin I 0.021
Vital Signs and I&O:
Vital Signs
Temp Pulse Resp BP Pulse Ox
97.5 F 69 18 140/72 94
06/18/25 07:15 06/18/25 09:13 06/18/25 07:15 06/18/25 09:13 06/18/25 09:04
Vital Signs
Temp Pulse Resp BP Pulse Ox
97.5 F 69 18 140/72 94
06/18/25 07:15 06/18/25 09:13 06/18/25 07:15 06/18/25 09:13 06/18/25 09:04
Intake & Output
06/16/25 06/17/25 06/18/25 06/19/25
06:59 06:59 06:59 06:59
Intake Total 840 / 840 1620 / 1620
Output Total 1500 / 1500
Balance -660 / -660 1620 / 1620
Physical Exam
Physical Exam
General: Well developed, well nourished in NAD.
Neck: Supple, no JVD, HJR, carotids +2 B/L, no bruits bilaterally.
Heart: Non displaced PMI, RRR, no murmurs, No S3, S4, no rubs.
Lungs: Scattered rhonchi
Extremities: No clubbing, cyanosis or edema bilaterally.
Neuro: Grossly nonfocal, awake, alert and oriented x3.
[2025-06-18 11:57] LABS: Glucose - Point of Care 260 mg/dl (70-99)
[2025-06-18 12:03] LABS: ACTH Stim Cortisol 30 Min 25.8 ug/dl
[2025-06-18] MEDS: NOVOLOG FLEXPEN-LOW RESISTANCE 3 UNITS SC (12:11)
[2025-06-18 12:37] LABS: ACTH Stim Cortisol 60 Min 33.4 ug/dl
--- NOTE | 2025-06-18 12:58 | CM ---
Chart reviewed. Met with patient chairside. Will not be DC today.Pt to Continue IV Lasix and consider change to oral Lasix on Tuesday 06/19
Plan: DC Home with [facility] when stable.
--- NOTE | 2025-06-18 15:40 | W.PN.HOSP.TC ---
Today's Communication/Plan
-
CXR in am
diuresis
Assessment / Plan
Assessment / Plan
89-year-old female who was recently admitted to [facility] from 05/22/2025 to 05/24/2025 with UTI and CHF. This time has shortness of breath
Chest x-ray-mild patchy basilar opacity could represent atelectasis and/or pneumonia. Tiny bilateral pleural effusions.
EKG-sinus rhythm with first degree AV block, left axis deviation, LVH
Echo 05/23/2025-normal LV size and mildly reduced LV function. EF 40 to 45%. Mild global hypokinesis. RV size and function within normal limits. Mildly dilated RA. Severe AAS. Mild MR. Mild TR.
CVS: S1-S2 normal, sm aa
Chest: CTA B/L
Abdomen: Soft, NT / Bowel sounds present
Extremities: No edema, normal pulses
VALVE STEAMER:tired, arousable and ca have a conversation.
# Progressive shortness of breath with orthopnea
Chest x-ray noted
BNP elevated at 11,000 and weight up by 8 pounds since discharge
IV diuresis started
Treating as acute on chronic HFrEF
Cardiology consulted
# Severe aortic stenosis
# Paroxysmal atrial fibrillation-Continue Eliquis, Amiodarone
# Hyponatremia-likely secondary to volume overload
# Low cortisol level- stimulation test normal.
# Diabetes type 2-hemoglobin A1c-7.0 on 05/23/2025
Restart metformin, sliding scale coverage
# History of CVA-History of Right CEA
# History of laminectomy/osteopenia/compression fractures
# Constipation-Bowel regimen
# Anxiety and depression-on as needed Xanax
# Restless leg syndrome-continue Requip
# Hiatal hernia-continue PPI
# Diverticulosis
# Ex-smoker
# DVT prophylaxis-continue Eliquis
# DNR
D/W Daughter at bed side
D/W Cards
Part of this note was created using voice recognition system. Occasional wrong word or��sound alike� substitutions may have inadvertently occurred due to the inherent limitations of voice recognition software. If noted kindly bring it to my
attention for correction.
Anticipated Discharge: Within 24 hours
Subjective/Interval History
-
Date of Service: June 18, 2025
Objective Data
-
Labs:
Laboratory Results
06/18/25
09:49
Sodium 131 L
Potassium 4.5
Chloride 96 L
Carbon Dioxide 25
BUN 19 H
Creatinine 0.7
Glucose 279 H
Calcium 9.2
Vital Signs:
Vital Signs
Temp Pulse Resp BP Pulse Ox
97.4 F 79 18 134/82 98
06/18/25 11:50 06/18/25 11:50 06/18/25 11:50 06/18/25 11:50 06/18/25 11:50
I&O
06/17/25 06/18/25 06/19/25
06:59 06:59 06:59
Intake Total 840 / 840 1620 / 1620
Output Total 1500 / 1500
Balance -660 / -660 1620 / 1620
[2025-06-18 16:30] LABS: Glucose - Point of Care 311 mg/dl (70-99)
--- NOTE | 2025-06-18 17:20 | PTCARENOTE ---
Pt AAO x3, [place]; sl forgetful at times. BREAUX well, OOB to chair/BSC; ambulated in carranza with assist x1/walker, rosalind well. VSS. Telemetry:NSR. On room air- pulse ox 98%, pt with (+) slight JEAN BAPTISTE but denies SOB. Encouraging pt to use IS q 1 hr while
awake- pt minimally compliant. Abd soft, rounded, rosalind PO well. Voids large amts clear yellow urine on BSC. Resting in bed at present, no c/o. Will continue to monitor.
[2025-06-18] MEDS: REQUIP 0.5 MG PO (17:24)
[2025-06-18] MEDS: NOVOLOG FLEXPEN-LOW RESISTANCE 4 UNITS SC (17:25)
[2025-06-18 21:35] LABS: Glucose - Point of Care 286 mg/dl (70-99)
[2025-06-18] MEDS: GLUCOPHAGE 500 MG PO (22:06)
[2025-06-18] MEDS: MELATONIN 10 MG PO (22:09)
[2025-06-18] MEDS: SENOKOT 8.6 MG PO (22:09)
[2025-06-18] MEDS: REMOVE LIDOCAINE PATCH 1 PATCH REMOVE (22:10)
[2025-06-18] MEDS: ZOSTRIX-HP 0.075% CREAM TOPICAL (22:15)
[2025-06-19 03:10] VITALS: BP 143/78
[2025-06-19 06:00] VITALS: BMI 19.2
[2025-06-19 07:04] VITALS: BP 139/71
[2025-06-19 07:36] LABS: Glucose - Point of Care 178 mg/dl (70-99)
[2025-06-19] MEDS: NOVOLOG FLEXPEN-LOW RESISTANCE 1 UNITS SC (08:39)
[2025-06-19] MEDS: ELIQUIS 2.5 MG PO ×2 (08:41→19:28)
[2025-06-19] MEDS: PROTONIX 40 MG PO (08:41)
[2025-06-19] MEDS: MAGNESIUM OXIDE 500 MG PO ×2 (08:42→19:27)
[2025-06-19] MEDS: PACERONE 200 MG PO (08:42)
[2025-06-19] MEDS: OCUVITE SOFTGEL 1 CAP PO (08:42)
[2025-06-19] MEDS: HIPREX 1 GRAM PO ×2 (08:42→19:28)
[2025-06-19] MEDS: VITAMIN B-12 1000 MCG PO (08:42)
[2025-06-19] MEDS: VITAMIN C 500 MG PO (08:43)
[2025-06-19] MEDS: VISBIOME 1 CAP PO (08:43)
[2025-06-19] MEDS: GLUCOPHAGE 500 MG PO (08:43)
[2025-06-19] MEDS: VITAMIN D3 (cholecalciferol) 25 MCG PO (08:43)
[2025-06-19] MEDS: LIDOCAINE 4% PATCH 1 PATCH TOPICAL (08:44)
[2025-06-19] MEDS: ZOSTRIX-HP 0.075% CREAM 1 APPLIC TOPICAL ×3 (08:56→17:19)
[2025-06-19] MEDS: MIRALAX PO (08:56)
[2025-06-19] MEDS: COLACE PO (08:56)
[2025-06-19 09:19] VITALS: BP 101/52; PULSE 82
--- NOTE | 2025-06-19 09:34 | W.PN.CARDCBS ---
Today's Communication / Plan
-
at dry weight
change to lasix 40 mg daily
Impression / Plan
-
Primary Buildings And Grounds Director: Dr. Funes
Assessment:
Shortness of breath
Weight gain
Concern for pneumonia
Acute on chronic heart failure mildly reduced EF
Severe aortic stenosis
Hyponatremia
UTI
Elevated troponin, nonmyocardial ischemic injury
Paroxysmal atrial fibrillation
CM EF 40-45% Apr 2024
Abnormal stress test, patient has declined cardiac catheterization on multiple occasions as OP
h/o multiple ischemic strokes which have been felt likely to represent small vessel disease and atherosclerosis
Autonomic dysfunction/hypotension/orthostasis treated with midodrine as needed
Carotid stenosis, right s/p stent
Hypercholesterolemia
Type 2 diabetes with diabetic neuropathy
History of seizure disorder
Breast Ca with Radiation Therapy s/p Left Mastectomy
GERD/Hiatal Hernia
RLS
UTIs
PSH: Hysterectomy /History of bowel resection/ Back surgery
Iron Deficiency
Congenital malformation of esophagus
Gait difficulty
Dysphagia
Former smoker
Echo 05/15/2024: EF 40 to 45%, global hypokinesis, stage II diastolic dysfunction, MAC, mild MR, mild to moderate with peak/mean gradients 27/18 mmHg, KAYLEIGH 1.4 cm�, trace AR
ECHO 05/25/2024: EF 40 to 45%, apex, inferolateral, inferior and anterior perez are hypokinetic, appears stable compared to prior.
Echo 09/08/2024: EF 40-45%, inferior, inferolateral, anterior, and apical hypokinesis. Mild MS, MAC, mild MR, moderate to severe (57/32 mmHg), mild to moderate TR, mild pulmonary hypertension PASP 43 mmHg
Echo 05/23/2025: LVEF 40 to 45%, normal RV size and function, severe , KAYLEIGH 0.6 cm�, mild MS, mild MR, mild TR, PAP 45 mmHg
Plan:
Her weight is down to 126 pounds. Dry weight was felt to be 125 to 127 pounds in the past
will change to po lasix 40 mg daily
stable cardiology status for d/c
updated primary service
Hypotension has limited up titration of GDMT in past. Did not tolerate Toprol or DAVID inhibitor in the past due to hypotension. Patient is current on Lasix only. She is not candidate for SGLT2 due to history of UTIs.
She was previously on midodrine for BP support. Not currently on med.
She remains in sinus rhythm.
Continue amiodarone and Eliquis
She has a history of abnormal stress test for which she has declined cardiac catheterization on multiple occasions as an outpatient.
PREADMIT DATA
Alexandra presents with a 1 week history of worsening shortness of breath, 4 pound weight gain, and an acute worsening of shortness of breath this morning requiring 911 call, initially found to be wheezing and received albuterol. Her history is notable
for severe aortic stenosis, chronic heart failure mildly reduced EF, paroxysmal atrial fibrillation, abnormal stress test, prior CVAs, orthostasis, type 2 diabetes, seizure disorder, prior breast cancer, GERD, carotid stenosis with prior stenting,
hyperlipidemia, dysphagia, and hyponatremia.
proBNP elevated at 11,000, troponin mildly elevated, chest x-ray concerning for atelectasis versus pneumonia, EKG showing normal sinus rhythm.
Progress Note - Buildings And Grounds Director
Subjective
Date of Service: June 19, 2025
no complaints
Objective
Labs:
06/16/25 07:21
Labs
Hgb 12.0 g/dL (12.0-16.0) 06/16/25 07:21
Hct 37.5 % (37.0-47.0) 06/16/25 07:21
Plt Count 240 10^3/uL (130-400) 06/16/25 07:21
Sodium 131 mmol/L (135-145) L 06/18/25 09:49
Potassium 4.5 mmol/L (3.5-5.1) 06/18/25 09:49
BUN 19 mg/dl (7-17) H 06/18/25 09:49
Creatinine 0.7 mg/dL (0.6-1.0) 06/18/25 09:49
Glucose 279 mg/dl (70-99) H 06/18/25 09:49
Vital Signs and I&O:
Vital Signs
Temp Pulse Resp BP Pulse Ox
97.7 F 76 16 139/71 98
06/19/25 07:04 06/19/25 07:04 06/19/25 07:04 06/19/25 07:04 06/19/25 07:04
Vital Signs
Temp Pulse Resp BP Pulse Ox
97.7 F 76 16 139/71 98
06/19/25 07:04 06/19/25 07:04 06/19/25 07:04 06/19/25 07:04 06/19/25 07:04
Intake & Output
06/17/25 06/18/25 06/19/25 06/20/25
06:59 06:59 06:59 06:59
Intake Total 840 / 840 1620 / 1620 1290 / 1290
Output Total 1500 / 1500 3700 / 3700
Balance -660 / -660 1620 / 1620 -2410 / -2410
Physical Exam
Physical Exam
General: Well developed, well nourished in NAD.
Neck: Supple, no JVD, HJR, carotids +2 B/L, no bruits bilaterally.
Heart: Non displaced PMI, RRR, no murmurs, No S3, S4, no rubs.
Lungs: Clear to auscultation bilaterally, no wheeze, rhonchi, rubs bilaterally,
normal expiratory phase.
Extremities: No clubbing, cyanosis or edema bilaterally.
Neuro: Grossly nonfocal, awake, alert and oriented x3.
[2025-06-19 09:48] LABS: Blood Urea Nitrogen 18 mg/dl (7-17); Calcium 9.7 mg/dl (8.4-10.2); Carbon Dioxide 26 mmol/L (22-30); Chloride 92 mmol/L (98-107); Estimated Creatinine Clearance 49 ml/min; Glucose 316 mg/dl (70-99); Potassium 4.0 mmol/L (3.5-5.1); Sodium 130 mmol/L (135-145); eGFR > 60.00
[2025-06-19] MEDS: LASIX IV (10:18)
[2025-06-19] MEDS: LASIX 40 MG PO (10:43)
[2025-06-19 11:43] VITALS: BP 133/65
[2025-06-19 12:02] LABS: Glucose - Point of Care 297 mg/dl (70-99)
[2025-06-19] MEDS: NOVOLOG FLEXPEN-LOW RESISTANCE 3 UNITS SC (12:46)
--- NOTE | 2025-06-19 14:27 | W.PN.HOSP.TC ---
Addendum entered and electronically signed by Park Joyner MD 06/19/25 14:56:
Acute hypoxic respiratory failure-resolving
Original Note:
Today's Communication/Plan
-
Daughter to talk to the patient regarding discharge planning
If she insists to go home today we will discharge home today, if not keep overnight
Assessment / Plan
Assessment / Plan
89-year-old female who was recently admitted to [facility] from 05/22/2025 to 05/24/2025 with UTI and CHF. This time has shortness of breath
Chest x-ray-mild patchy basilar opacity could represent atelectasis and/or pneumonia. Tiny bilateral pleural effusions.
EKG-sinus rhythm with first degree AV block, left axis deviation, LVH
Echo 05/23/2025-normal LV size and mildly reduced LV function. EF 40 to 45%. Mild global hypokinesis. RV size and function within normal limits. Mildly dilated RA. Severe AAS. Mild MR. Mild TR.
CVS: S1-S2 normal, sm aa
Chest: CTA B/L
Abdomen: Soft, NT / Bowel sounds present
Extremities: No edema
LEAD INFRASTRUCTURE ARCHITECT: Awake alert oriented. Wants to go home
# Progressive shortness of breath with orthopnea
Chest x-ray noted, x-ray improved today
BNP elevated at 11,000 and weight up by 8 pounds since discharge
IV diuresis started
Treating as acute on chronic HFrEF
Cardiology consulted
# Severe aortic stenosis
# Paroxysmal atrial fibrillation-Continue Eliquis, Amiodarone
# Hyponatremia-likely secondary to volume overload. Corrected sodium for sugars today is 133
# Low cortisol level- stimulation test normal.
# Diabetes type 2-hemoglobin A1c-7.0 on 05/23/2025
Sugars are elevated likely secondary to steroids she received in the ER and also because of cosyntropin test.
Hemoglobin A1c 7.0. Patient and daughter states that her numbers have been mostly 177 at home.
Increase to 1000 mg while in house and discharged on 750 mg twice daily for discharge
Once sugars are back to normal at home she can resume 500 mg twice daily dosage.
# History of CVA-History of Right CEA
# History of laminectomy/osteopenia/compression fractures
# Constipation-Bowel regimen
# Anxiety and depression-on as needed Xanax
# Restless leg syndrome-continue Requip
# Hiatal hernia-continue PPI
# Diverticulosis
# Ex-smoker
# DVT prophylaxis-continue Eliquis
# DNR
Discussed with patient's daughter on the phone in detail and updated
D/W Cards. Okay for discharge
Part of this note was created using voice recognition system. Occasional wrong word or��sound alike� substitutions may have inadvertently occurred due to the inherent limitations of voice recognition software. If noted kindly bring it to my
attention for correction.
Anticipated Discharge: Within 24 hours
Subjective/Interval History
-
Date of Service: June 19, 2025
Objective Data
-
Labs:
Laboratory Results
06/19/25
09:13
Sodium 130 L
Potassium 4.0
Chloride 92 L
Carbon Dioxide 26
BUN 18 H
Creatinine 0.7
Glucose 316 H
Calcium 9.7
Vital Signs:
Vital Signs
Temp Pulse Resp BP Pulse Ox
97.6 F 78 16 133/65 98
06/19/25 11:43 06/19/25 11:43 06/19/25 11:43 06/19/25 11:43 06/19/25 11:43
I&O
06/18/25 06/19/25 06/20/25
06:59 06:59 06:59
Intake Total 1620 / 1620 1290 / 1290
Output Total 3700 / 3700
Balance 1620 / 1620 -2410 / -2410
--- NOTE | 2025-06-19 14:32 | PN.CDI ---
CDI
- -
CDI:
Physician Documentation Request
Admit Date: 06/16/25 11:09
Dear Doctor Anya,
Please review the following and provide your response in the progress notes.
Clinical Indicators:
EMS Transport, 06/16
#Transported with High Flow with O2 mask with duoneb 10 lpm
ER, 06/16
#...presenting to the emergency department for shortness of breath.
#...Per medics, patient wheezing, received 1 albuterol treatment.
#...Also noted to be satting at 91%.
#08:30 - Patient's oxygenation continues to fluctuate between high 80s and low 90s.
#...Stable after DuoNeb treatment.
PN, 06/19
# Progressive shortness of breath with orthopnea
#Treating as acute on chronic HFrEF
Selected Entries
06/16/25
07:15 06/16/25
08:18 06/16/25
09:52
Nasal Cannula flow liters per minute 3 6 6
06/16/25
12:42 06/16/25
12:44
Nasal Cannula flow liters per minute 6 6
Please clarify which of the following accurately represents the patient's respiratory status on admission:
Acute respiratory failure, POA, now resolved
Shortness of breath only
Hypoxia only
Other(please specify)
Additional information for Respiratory Failure:
Recognized criteria for Respiratory Failure (Source: Jean Claude Gallardo 2019 August 16.
Documentation tips: Acute Respiratory Failure, The Hospitalist.)
Symptoms Please indicate type if known
1. Tachypnea, SOB, dyspnea Hypoxic
2. Use of accessory muscles Hypercapnic
3. Pallor or cyanosis Hypoxic and Hypercapnic
4. Anxiety or restlessness Unable to determine
5. Unable to speak in full sentences
Use of terms such as suspected, likely, concern for, or probable (associated with a specific diagnosis that is being evaluated, monitored, or treated as if it exists) are acceptable and can be coded in the inpatient setting, when documented at the
time of discharge.
Thank you,
Estella Ruiz RN BSN CCDS
CDI Specialist
Please contact via tiger text
Please use your independent medical judgment in providing your response.
[2025-06-19 15:39] VITALS: BP 135/73
[2025-06-19 16:31] LABS: Glucose - Point of Care 225 mg/dl (70-99)
[2025-06-19] MEDS: GLUCOPHAGE 1000 MG PO (17:19)
[2025-06-19] MEDS: REQUIP 0.5 MG PO (17:19)
[2025-06-19] MEDS: NOVOLOG FLEXPEN-LOW RESISTANCE 2 UNITS SC (17:20)
[2025-06-19] MEDS: COLACE 100 MG PO (19:27)
[2025-06-19] MEDS: REMOVE LIDOCAINE PATCH 1 PATCH REMOVE (19:28)
[2025-06-19] MEDS: SENOKOT 8.6 MG PO (19:28)
[2025-06-19] MEDS: XANAX 0.25 MG PO (19:28)
[2025-06-19] MEDS: ZOSTRIX-HP 0.075% CREAM TOPICAL ×2 (21:10→21:40)
[2025-06-19 21:33] LABS: Glucose - Point of Care 126 mg/dl (70-99)
[2025-06-19] MEDS: MELATONIN 10 MG PO (21:37)
[2025-06-19 23:01] VITALS: BP 119/65
[2025-06-20 06:00] VITALS: BMI 19.2
[2025-06-20 06:51] LABS: Glucose - Point of Care 160 mg/dl (70-99)
[2025-06-20 07:00] VITALS: BP 112/63
[2025-06-20] MEDS: HIPREX 1 GRAM PO (07:44)
[2025-06-20] MEDS: PROTONIX 40 MG PO (07:44)
[2025-06-20] MEDS: GLUCOPHAGE 1000 MG PO (07:44)
[2025-06-20] MEDS: VISBIOME 1 CAP PO (07:44)
[2025-06-20] MEDS: OCUVITE SOFTGEL 1 CAP PO (07:45)
[2025-06-20] MEDS: COLACE 100 MG PO (07:45)
[2025-06-20] MEDS: VITAMIN C 500 MG PO (07:45)
[2025-06-20] MEDS: VITAMIN B-12 1000 MCG PO (07:49)
[2025-06-20] MEDS: MAGNESIUM OXIDE PO (07:49)
[2025-06-20] MEDS: LASIX 40 MG PO (07:50)
[2025-06-20] MEDS: VITAMIN D3 (cholecalciferol) 25 MCG PO (07:50)
[2025-06-20] MEDS: PACERONE 200 MG PO (07:50)
[2025-06-20] MEDS: ELIQUIS 2.5 MG PO (07:50)
[2025-06-20] MEDS: LIDOCAINE 4% PATCH 1 PATCH TOPICAL (07:51)
[2025-06-20] MEDS: ZOSTRIX-HP 0.075% CREAM 1 APPLIC TOPICAL ×2 (07:51→12:08)
[2025-06-20] MEDS: NOVOLOG FLEXPEN-LOW RESISTANCE 1 UNITS SC (07:53)
[2025-06-20] MEDS: MIRALAX PO (07:54)
[2025-06-20] MEDS: MAGNESIUM OXIDE 400 MG PO (08:03)
[2025-06-20 10:29] LABS: Blood Urea Nitrogen 23 mg/dl (7-17); Calcium 9.6 mg/dl (8.4-10.2); Carbon Dioxide 23 mmol/L (22-30); Chloride 94 mmol/L (98-107); Estimated Creatinine Clearance 38 ml/min; Glucose 303 mg/dl (70-99); Potassium 3.9 mmol/L (3.5-5.1); Sodium 128 mmol/L (135-145); eGFR > 60.00
--- NOTE | 2025-06-20 11:00 | W.PN.HOSP.TC ---
Addendum entered and electronically signed by Park Joyner MD 06/20/25 17:11:
rpt noted
Pt feels well and wants to go home
Scrip sent yesterday
Hold Lasix tomorrow and resume day after tomorrow
Total discharge time more than 30 min
Original Note:
Today's Communication/Plan
-
Rpt BMP before lunch
Assessment / Plan
Assessment / Plan
89-year-old female who was recently admitted to [facility] from 05/22/2025 to 05/24/2025 with UTI and CHF. This time has shortness of breath
Chest x-ray-mild patchy basilar opacity could represent atelectasis and/or pneumonia. Tiny bilateral pleural effusions.
EKG-sinus rhythm with first degree AV block, left axis deviation, LVH
Echo 05/23/2025-normal LV size and mildly reduced LV function. EF 40 to 45%. Mild global hypokinesis. RV size and function within normal limits. Mildly dilated RA. Severe AAS. Mild MR. Mild TR.
CVS: S1-S2 normal, sm aa
Chest: CTA B/L
Abdomen: Soft, NT / Bowel sounds present
Extremities: No edema
# Progressive shortness of breath with orthopnea
Chest x-ray noted, x-ray improved today
BNP elevated at 11,000 and weight up by 8 pounds since discharge
Lasix changed to PO
Treating as acute on chronic HFrEF
Cardiology consulted
# Severe aortic stenosis
# Paroxysmal atrial fibrillation-Continue Eliquis, Amiodarone
# Hyponatremia-likely secondary to volume overload. Corrected sodium for sugars today is 131. Check Serum and urine osm and urine sodium. Rpt BMP later today
# Low cortisol level- stimulation test normal.
# Diabetes type 2-hemoglobin A1c-7.0 on 05/23/2025
Sugars are elevated likely secondary to steroids she received in the ER and also because of cosyntropin test.
Hemoglobin A1c 7.0. Patient and daughter states that her numbers have been mostly 177 at home fasting.
Increase to 1000 mg while in house and discharge on 750 mg twice daily for discharge
# History of CVA-History of Right CEA
# History of laminectomy/osteopenia/compression fractures
# Constipation-Bowel regimen
# Anxiety and depression-on as needed Xanax
# Restless leg syndrome-continue Requip
# Hiatal hernia-continue PPI
# Diverticulosis
# Ex-smoker
# DVT prophylaxis-continue Eliquis
# DNR
D/W RN
Part of this note was created using voice recognition system. Occasional wrong word or��sound alike� substitutions may have inadvertently occurred due to the inherent limitations of voice recognition software. If noted kindly bring it to my
attention for correction.
Anticipated Discharge: Today
Subjective/Interval History
-
Date of Service: June 20, 2025
Objective Data
-
Labs:
Laboratory Results
06/20/25
09:34
Sodium 128 L
Potassium 3.9
Chloride 94 L
Carbon Dioxide 23
BUN 23 H
Creatinine 0.9
Glucose 303 H
Calcium 9.6
Vital Signs:
Vital Signs
Temp Pulse Resp BP Pulse Ox
97.9 F 77 12 112/63 96
06/20/25 07:00 06/20/25 07:50 06/20/25 07:00 06/20/25 07:50 06/20/25 08:00
I&O
06/19/25 06/20/25 06/21/25
06:59 06:59 06:59
Intake Total 1290 / 1290 720 / 720 660 / 660
Output Total 3700 / 3700 650 / 650
Balance -2410 / -2410 70 / 70 660 / 660
[2025-06-20 11:59] LABS: Glucose - Point of Care 166 mg/dl (70-99)
[2025-06-20] MEDS: NOVOLOG FLEXPEN-LOW RESISTANCE 300 UNITS SC (12:08)
[2025-06-20 12:14] LABS: TSH 2.18 uIU/ml (0.47-4.68)
[2025-06-20 12:50] LABS: Blood Urea Nitrogen 24 mg/dl (7-17); Calcium 10.1 mg/dl (8.4-10.2); Carbon Dioxide 29 mmol/L (22-30); Chloride 93 mmol/L (98-107); Estimated Creatinine Clearance 43 ml/min; Glucose 169 mg/dl (70-99); Potassium 3.9 mmol/L (3.5-5.1); Sodium 131 mmol/L (135-145); eGFR > 60.00
--- NOTE | 2025-06-20 13:38 | W.PN.CARDCBS ---
Today's Communication / Plan
-
Outpatient dose of Lasix 40 mg PO daily has been resumed
Patient is at previous dry weight
Will arrange for outpatient follow-up
Impression / Plan
-
Primary Laminating Machine Operator Helper: Dr. Funes
Assessment:
Presented with SOB, weight gain and possible PNA vs CHF 06/16/2025
Acute on chronic HFmrEF
Severe aortic stenosis
Hyponatremia
UTI
Elevated troponin, nonmyocardial ischemic injury
Paroxysmal atrial fibrillation
CM EF 40-45% Apr 2024
Abnormal stress test, patient has declined cardiac catheterization on multiple occasions as OP
h/o multiple ischemic strokes which have been felt likely to represent small vessel disease and atherosclerosis
Autonomic dysfunction/hypotension/orthostasis treated with midodrine as needed
Carotid stenosis, right s/p stent
Hypercholesterolemia
Type 2 diabetes with diabetic neuropathy
History of seizure disorder
Breast Ca with Radiation Therapy s/p Left Mastectomy
GERD/Hiatal Hernia
RLS
UTIs
PSH: Hysterectomy /History of bowel resection/ Back surgery
Iron Deficiency
Congenital malformation of esophagus
Gait difficulty
Dysphagia
Former smoker
Echo 05/15/2024: EF 40 to 45%, global hypokinesis, stage II diastolic dysfunction, MAC, mild MR, mild to moderate with peak/mean gradients 27/18 mmHg, KAYLEIGH 1.4 cm�, trace AR
ECHO 05/25/2024: EF 40 to 45%, apex, inferolateral, inferior and anterior perez are hypokinetic, appears stable compared to prior.
Echo 09/08/2024: EF 40-45%, inferior, inferolateral, anterior, and apical hypokinesis. Mild MS, MAC, mild MR, moderate to severe (57/32 mmHg), mild to moderate TR, mild pulmonary hypertension PASP 43 mmHg
Echo 05/23/2025: LVEF 40 to 45%, normal RV size and function, severe , KAYLEIGH 0.6 cm�, mild MS, mild MR, mild TR, PAP 45 mmHg
Plan:
-Overall weight is down 13 lbs per current weight of 126 lbs on 06/20/2025. Dry weight was felt to be 125 to 127 lbs in the past
-Patient diuresed with Lasix 40 mg IV BID and has now transition to her usual outpatient dose of Lasix 40 mg PO daily.
-EF stable at 40 to 45% on echo 05/23/2025, this is chronic as far back as 05/15/2024.
-GDMT limited by hypotension.
-Patient was intolerant to addition of Toprol-XL in the past due to hypotension
-Patient was intolerant to addition of DAVID inhibitor in the past due to hypotension
-Patient is not candidate for SGLT2 due to history of UTIs.
-Patient has required midodrine for BP support in the past, but not currently requirement
-Patient with known paroxysmal A-fib and is in SR on my review of telemetry 06/20/2025.
-Outpatient dose of amiodarone 20 mg daily has been continued. QTc 497 ms on ECG from 06/16/2025 as reviewed by me on 06/20/2025.
-Outpatient dose of Eliquis 2.5 mg BID (age 89, Cre 0.8, wt 57 kg) has been continued
HPI: Alexandra presents with a 1 week history of worsening shortness of breath, 4 pound weight gain, and an acute worsening of shortness of breath this morning requiring 911 call, initially found to be wheezing and received albuterol. Her history is
notable for severe aortic stenosis, chronic heart failure mildly reduced EF, paroxysmal atrial fibrillation, abnormal stress test, prior CVAs, orthostasis, type 2 diabetes, seizure disorder, prior breast cancer, GERD, carotid stenosis with prior
stenting, hyperlipidemia, dysphagia, and hyponatremia.
proBNP elevated at 11,000, troponin mildly elevated, chest x-ray concerning for atelectasis versus pneumonia, EKG showing normal sinus rhythm.
Progress Note - Laminating Machine Operator Helper
Subjective
Date of Service: June 20, 2025
Less SOB
Objective
Labs:
06/16/25 07:21
06/20/25 11:48
Labs
Hgb 12.0 g/dL (12.0-16.0) 06/16/25 07:21
Hct 37.5 % (37.0-47.0) 06/16/25 07:21
Plt Count 240 10^3/uL (130-400) 06/16/25 07:21
Sodium 131 mmol/L (135-145) L 06/20/25 11:48
Potassium 3.9 mmol/L (3.5-5.1) 06/20/25 11:48
BUN 24 mg/dl (7-17) H 06/20/25 11:48
Creatinine 0.8 mg/dL (0.6-1.0) 06/20/25 11:48
Glucose 169 mg/dl (70-99) H 06/20/25 11:48
Vital Signs and I&O:
Vital Signs
Temp Pulse Resp BP Pulse Ox
97.9 F 77 12 112/63 96
06/20/25 07:00 06/20/25 07:50 06/20/25 07:00 06/20/25 07:50 06/20/25 08:00
Vital Signs
Temp Pulse Resp BP Pulse Ox
97.9 F 77 12 112/63 96
06/20/25 07:00 06/20/25 07:50 06/20/25 07:00 06/20/25 07:50 06/20/25 08:00
Intake & Output
06/18/25 06/19/25 06/20/25 06/21/25
06:59 06:59 06:59 06:59
Intake Total 1620 / 1620 1290 / 1290 720 / 720 660 / 660
Output Total 3700 / 3700 650 / 650
Balance 1620 / 1620 -2410 / -2410 70 / 70 660 / 660
Physical Exam
Physical Exam
GEN: NAD. AAO to person place and situation
LUNGS: RA. No wheeze
CV: SR on telemetry.
[2025-06-20] MEDS: ZOFRAN 4 MG PO (14:14)
--- NOTE | 2025-06-20 14:53 | CM ---
Addendum entered by Radha Cotton 06/20/25 15:44:
[facility]
[phone]
fax [phone]
Addendum entered by Radha Cotton 06/20/25 15:31:
Plan: Pt is discharged to home with [facility] for PT. Dtr will transport pt in private car
Original Note:
Met with pt chairside. IMM given and placed on the chart. possible D/C today. Texted Dr Joyner for update on discharge status
Plan: D/C home with [facility] when stable
[2025-06-20 15:00] VITALS: BP 93/51
[2025-06-20 16:31] VITALS: BP 110/55; BP 119/58; BP 127/66; PULSE 75; PULSE 76; PULSE 77
[2025-06-20 17:01] LABS: Glucose - Point of Care 136 mg/dl (70-99)
[2025-06-20] MEDS: NOVOLOG FLEXPEN-LOW RESISTANCE SC (17:02)
--- NOTE | 2025-06-20 17:03 | PTCARENOTE ---
Patient with low BP 95/49. Reported feeling dizzy in chair. Patient assisted back to bed. Orthostatics done and documented. Patient reported dizziness has passed and she would like to go home. Daughter at bedside, Dr. Reddy made aware. Plan of care
on going.
--- NOTE | 2025-06-20 17:11 | W.DS.TRANS ---
DC Summary - Radio Control Crane Operator
-
Discharge Instructions:
Sleep Apnea Risk Intermediate
Discharge Diagnosis/Procedures CHF
Severe aortic stenosis
Paroxysmal atrial fibrillation
Hyponatremia
Diabetes
History of CVA
Acute anxiety
Restless leg syndrome
Diverticulosis
Diet 2 Gram Sodium,Restrict fluids to 48 oz
Activity As tolerated
Driving Restrictions No driving
Blood Work BMP and cardiac BNP 1 week
Other Services VN
Specialty Instructions Weigh Daily
Instructions: *DCA Heart Failure Instructions
Stand-Alone Forms:
Changes to Home Medications: Yes
Discharge Medications:
DC Medications w/original date entered in [employer]
vitamins A,C,X-lobi-xrskvr 4,296 mcg-226 mg-90 mg capsule (PreserVision AREDS) 1 cap PO BID Supplement 02/09/22
methenamine hippurate 1 gram tablet 1 g PO BID Urinary Issue 09/08/24
ropinirole 0.5 mg tablet 0.5 mg PO HS RESTLESS LEG 09/08/24
alprazolam 0.5 mg tablet 0.25 mg (1/2 x 0.5 mg) PO BIDPRN PRN Anxiety #6 tabs 09/17/24
Lactobac no.2-Bifidobac no.1-S. thermo 112.5 billion cell capsule (Visbiome) 1 cap PO DAILY Supplement 05/22/25
ascorbic acid (vitamin C) 500 mg tablet (Vitamin C) 500 mg PO DAILY Supplement 05/22/25
cholecalciferol (vitamin D3) 25 mcg (1,000 unit) tablet (Vitamin D3) 25 mcg PO DAILY Supplement 05/22/25
cyanocobalamin (vitamin B-12) 1,000 mcg tablet 1,000 mcg PO DAILY Supplement 05/22/25
lidocaine 4 % topical patch 1 patch topical HS lower back pain 05/22/25
melatonin 5 mg tablet 5 mg PO HS Sleep 05/22/25
polyethylene glycol 3350 17 gram oral powder packet (Miralax) 17 g PO DAILY Constipation 05/22/25
amiodarone 200 mg tablet 200 mg PO DAILY Arrhythmia 06/16/25
apixaban 2.5 mg tablet (Eliquis) 2.5 mg PO BID Blood Clot Prevention/Tx 06/16/25
capsaicin 0.075 % topical cream (Arthritis Pain Relief (capsaicin)) 1 applic topical QID Arthritis 06/16/25
magnesium oxide 500 mg PO BID Supplement 06/16/25
pantoprazole 40 mg tablet,delayed release 40 mg PO DAILY Gastrointestinal Issue 06/16/25
acetaminophen 325 mg tablet 650 mg (2 x 325 mg) PO Q6HPRN PRN pain #0 tabs 06/19/25
furosemide 20 mg tablet 40 mg (2 x 20 mg) PO DAILY Fluid Retention/Swelling #60 tabs 06/19/25
metformin 500 mg tablet 750 mg (1.5 x 500 mg) PO BID Diabetes #60 tabs 06/19/25
Home Medication Changes
Metformin dose increased
Lasix dose increased
Pending Results: No
--- NOTE | 2025-06-20 17:39 | W.DS.TRANS ---
Addendum entered and electronically signed by Park Joyner MD 06/21/25 07:30:
Dictation- [id number]
Original Note:
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
-
Discharge Instructions:
Sleep Apnea Risk Intermediate
Discharge Diagnosis/Procedures CHF
Severe aortic stenosis
Paroxysmal atrial fibrillation
Hyponatremia
Diabetes
History of CVA
Acute anxiety
Restless leg syndrome
Diverticulosis
Diet 2 Gram Sodium,Restrict fluids to 64 oz
Activity As tolerated
Driving Restrictions No driving
Blood Work BMP and cardiac BNP 1 week
Other Services VN
Specialty Instructions Weigh Daily
Instructions: *DCA Heart Failure Instructions
Stand-Alone Forms:
Changes to Home Medications: Yes
Discharge Medications:
DC Medications w/original date entered in [employer]
vitamins A,C,E-yinj-prgvxz 4,296 mcg-226 mg-90 mg capsule (PreserVision AREDS) 1 cap PO BID Supplement 02/09/22
methenamine hippurate 1 gram tablet 1 g PO BID Urinary Issue 09/08/24
ropinirole 0.5 mg tablet 0.5 mg PO HS RESTLESS LEG 09/08/24
alprazolam 0.5 mg tablet 0.25 mg (1/2 x 0.5 mg) PO BIDPRN PRN Anxiety #6 tabs 09/17/24
Lactobac no.2-Bifidobac no.1-S. thermo 112.5 billion cell capsule (Visbiome) 1 cap PO DAILY Supplement 05/22/25
ascorbic acid (vitamin C) 500 mg tablet (Vitamin C) 500 mg PO DAILY Supplement 05/22/25
cholecalciferol (vitamin D3) 25 mcg (1,000 unit) tablet (Vitamin D3) 25 mcg PO DAILY Supplement 05/22/25
cyanocobalamin (vitamin B-12) 1,000 mcg tablet 1,000 mcg PO DAILY Supplement 05/22/25
lidocaine 4 % topical patch 1 patch topical HS lower back pain 05/22/25
melatonin 5 mg tablet 5 mg PO HS Sleep 05/22/25
polyethylene glycol 3350 17 gram oral powder packet (Miralax) 17 g PO DAILY Constipation 05/22/25
amiodarone 200 mg tablet 200 mg PO DAILY Arrhythmia 06/16/25
apixaban 2.5 mg tablet (Eliquis) 2.5 mg PO BID Blood Clot Prevention/Tx 06/16/25
capsaicin 0.075 % topical cream (Arthritis Pain Relief (capsaicin)) 1 applic topical QID Arthritis 06/16/25
magnesium oxide 500 mg PO BID Supplement 06/16/25
pantoprazole 40 mg tablet,delayed release 40 mg PO DAILY Gastrointestinal Issue 06/16/25
acetaminophen 325 mg tablet 650 mg (2 x 325 mg) PO Q6HPRN PRN pain #0 tabs 06/19/25
furosemide 20 mg tablet 40 mg (2 x 20 mg) PO DAILY Fluid Retention/Swelling #60 tabs 06/19/25
metformin 500 mg tablet 750 mg (1.5 x 500 mg) PO BID Diabetes #60 tabs 06/19/25
ipratropium 0.5 mg-albuterol 3 mg (2.5 mg base)/3 mL nebulization soln 3 ml inhalation R Q4HPRN PRN Shortness of breath/wheeze #90 mL 06/20/25
Home Medication Changes
Lasix and metformin changed
Neb treatment new
Pending Results: No
== END 2025-06-20 17:54 | disposition home health service (06) | DRG 291 ==
LOC: 4 EAST ACU 11:09
PROVIDERS: ADMITTING PHYSICIAN Internal Medicine; ATTENDING PHYSICIAN Hospitalist; CONSULT PHYSICIAN Nuclear Medicine Nuclear Cardiology; EMERGENCY PHYSICIAN Student in an Organized Health Care Education/Training Program; FAMILY PHYSICIAN Family Medicine
DX: I11.0 Hypertensive heart disease with heart failure (principal); I50.23 Acute on chronic systolic (congestive) heart failure; J96.01 Acute respiratory failure with hypoxia; E87.1 Hypo-osmolality and hyponatremia; Q39.9 Congenital malformation of esophagus, unspecified; J98.11 Atelectasis; J84.9 Interstitial pulmonary disease, unspecified; I48.0 Paroxysmal atrial fibrillation; I06.0 Rheumatic aortic stenosis; K59.00 Constipation, unspecified; Z66 Do not resuscitate; E11.43 Type 2 diabetes mellitus with diabetic autonomic (poly)neuropathy; E78.00 Pure hypercholesterolemia, unspecified; G25.81 Restless legs syndrome; G40.909 Epilepsy, unspecified, not intractable, without status epilepticus; K21.9 Gastro-esophageal reflux disease without esophagitis; I27.20 Pulmonary hypertension, unspecified; K44.9 Diaphragmatic hernia without obstruction or gangrene; K57.90 Diverticulosis of intestine, part unspecified, without perforation or abscess without bleeding; M19.90 Unspecified osteoarthritis, unspecified site; F41.9 Anxiety disorder, unspecified; N95.2 Postmenopausal atrophic vaginitis; Z79.899 Other long term (current) drug therapy; Z79.01 Long term (current) use of anticoagulants; Z11.52 Encounter for screening for COVID-19; Z85.3 Personal history of malignant neoplasm of breast; Z86.73 Personal history of transient ischemic attack (TIA), and cerebral infarction without residual deficits; Z87.891 Personal history of nicotine dependence; Z87.440 Personal history of urinary (tract) infections; Z90.12 Acquired absence of left breast and nipple; Z90.49 Acquired absence of other specified parts of digestive tract; Z90.710 Acquired absence of both cervix and uterus
CPT/HCPCS: 71046; 80048; 80053; 81003; 81015; 82533; 82947; 82962; 83735; 83880; 83930; 84145; 84443; 84484; 85025; 87086; 87502; 87811; 93005; 94640; 96365; 96375; 97116; 97162; 97167; 97530; 97535; 99285

== ENCOUNTER → 2025-07-12 11:03 | Outpatient (REF) | payer OTHER, SELFPAY ==
[2025-07-12 13:22] LABS: Blood Urea Nitrogen 20 mg/dl (7-17); Calcium 9.1 mg/dl (8.4-10.2); Carbon Dioxide 27 mmol/L (22-30); Chloride 97 mmol/L (98-107); Glucose 144 mg/dl (70-99); Potassium 4.7 mmol/L (3.5-5.1); Sodium 130 mmol/L (135-145); eGFR > 60.00
== END ==
LOC: OLABPATH 11:03
PROVIDERS: ATTENDING PHYSICIAN Physician Assistant Medical; FAMILY PHYSICIAN Internal Medicine; REFERRING PHYSICIAN Family Medicine
DX: I50.9 Heart failure, unspecified (principal); I48.20 Chronic atrial fibrillation, unspecified; E08.610 Diabetes mellitus due to underlying condition with diabetic neuropathic arthropathy
CPT/HCPCS: 36415; 80048; 83880

== ENCOUNTER 2025-07-15 02:25 | Inpatient (IN) | payer OTHER, SELFPAY ==
[2025-07-14 23:49] VITALS: BP 117/97
[2025-07-14 23:51] VITALS: BP 117/97
[2025-07-15] VITALS (19 sets, daily range): BP systolic 89–139; BP diastolic 40–74; PULSE 65–74; O2SAT 98; BMI 20.4
[2025-07-15 00:06] LABS: Hematocrit 31.8 % (37.0-47.0); Hemoglobin 10.6 g/dL (12.0-16.0); Mean Corp Hgb Conc. 33.3 g/dL (33.0-37.0); Mean Corpuscular Volume 89.6 fL (81.0-99.0); Nucleated Red Blood Cells % 0 %; Platelet Count 238 10^3/uL (130-400); Red Cell Dist. Width 15.5 % (11.5-14.5)
[2025-07-15 00:30] LABS: ALT (SGPT) 32 U/L (0-35); AST (SGOT) 60 U/L (14-36); Albumin 4.2 g/dl (3.5-5.0); Alkaline Phosphatase 99 U/L (38-126); Blood Urea Nitrogen 26 mg/dl (7-17); Calcium 9.4 mg/dl (8.4-10.2); Carbon Dioxide 20 mmol/L (22-30); Chloride 96 mmol/L (98-107); Glucose 161 mg/dl (70-99); Potassium 4.7 mmol/L (3.5-5.1); Sodium 126 mmol/L (135-145); Total Protein 7.3 g/dl (6.3-8.2); eGFR > 60.00
[2025-07-15 00:39] LABS: Troponin I 0.045 ng/ml
--- NOTE | 2025-07-15 00:44 | ED.GENMED ---
History of Present Illness
General
Chief Complaint: Breathing Problem
Source: patient
Exam Limitations: none
Time Seen by Provider: 07/14/25 23:48
Nursing documentation reviewed up to this point in time: agreed with
History of Present Illness
History of Present Illness:
Note:
CHIEF COMPLAINT(S)
- Shortness of breath
- Inability to walk
HISTORY OF PRESENT ILLNESS
The patient is an 89-year-old female who presents with shortness of breath and an inability to walk. According to the patient, she has gained five pounds over the last week, and this was reported by her nursing facility. She denies having edema. The
patient describes her lungs as feeling full of fluid, indicating congestion, although she denies actively coughing up sputum or having a sensation of fluid in her lungs at the moment. She was previously put on oxygen at the nursing facility, which
seemed to improve her breathing significantly. The patient reports that she has not been able to walk because her legs 'wouldnt move,' though there is no associated chest pain or excessive shortness of breath when trying to ambulate. She mentions
feeling unsafe where she is living and recalls having experienced falls or thoughts of harming herself but does not specify recent incidents.
SOCIAL HISTORY
- The patient smoked cigarettes in the past but has quit.
- She drinks caffeine but did not specify the amount or frequency.
- Does not currently consume alcohol.
- The patient feels safe in her current living situation.
PHYSICAL EXAM
General: Alert, no acute distress.
Skin: Warm, dry.
Head: Normocephalic, atraumatic.
Neck: Supple, trachea midline.
Eye, Ears, Nose, Mouth, and Throat: Oral mucosa moist.
Cardiovascular: Normal peripheral perfusion, No edema.
Respiratory: Respirations are non-labored. Lungs auscultated as sounding full of fluid.
Gastrointestinal: Abdomen nondistended.
Back: Normal range of motion, Normal alignment.
Musculoskeletal: Normal ROM, normal strength.
Neurological: Alert and oriented to person, place, time, and situation, No focal neurological deficit observed.
Psychiatric: Cooperative, appropriate mood & affect.
PLAN
1. Continue monitoring respiratory status and provide supplemental oxygen as needed.
2. Plan for a comprehensive workup including evaluation of lung congestion and potential causes of sudden weight gain.
3. Consider hospitalization to further assess mobility and respiratory issues.
4. Evaluate safety and falls risk given her reported lack of mobility.
5. Address any potential for self-harm and ensure mental health support is available.
DIFFERENTIAL DIAGNOSIS
The Differential Diagnosis includes, in no particular order and is not limited to:
1. Congestive heart failure
2. Pulmonary edema
3. Chronic obstructive pulmonary disease exacerbation
4. Lower extremity weakness due to neurological conditions
5. Acute respiratory infection
6. Deconditioning or muscle weakness
7. Drug-induced edema
8. Deep vein thrombosis
9. Pulmonary embolism
10. Acute myocardial infarction
Disposition:
SUMMARY OF ENCOUNTER
An 89-year-old female presented to the emergency department with shortness of breath. Initial lab tests revealed elevated D-dimer and BNP levels, indicative of potential heart failure. A chest x-ray showed pulmonary vascular congestion, consistent
with a congestive heart failure (CHF) exacerbation. Given these findings, she was admitted to the hospital for further management. She was administered furosemide (Lasix) to address her symptoms.
DISPOSITION
Admit.
ASSESSMENT
The patient exhibits signs consistent with a CHF exacerbation, as evidenced by pulmonary congestion and elevated BNP levels.
EMERGENCY TREATMENTS ADMINISTERED
Furosemide (Lasix) was given in the emergency department to manage fluid overload associated with heart failure.
INDEPENDENT REVIEW OF LABS AND INTERPRETATION OF TESTS
- My independent review of D-dimer is elevated.
- My independent review of BNP is elevated.
My independent chest x-ray interpretation is pulmonary vascular congestion, consistent with CHF exacerbation.
MEDICATION RECONCILIATION
Furosemide (Lasix) administered for fluid management in CHF exacerbation.
MEDICAL DECISION MAKING
- Number and Complexity of Problems Addressed: Chronic conditions affecting care include congestive heart failure; DDx includes congestive heart failure, pulmonary edema, chronic obstructive pulmonary disease exacerbation, lower extremity weakness
due to neurological conditions, acute respiratory infection, deconditioning or muscle weakness, drug-induced edema, deep vein thrombosis, pulmonary embolism, and acute myocardial infarction.
- Data:
- Category 1: Reviewed elevated D-dimer and BNP levels, independently interpreted chest x-ray revealing pulmonary vascular congestion.
- Risk: The decision to admit the patient reflects the high risk of complications associated with heart failure exacerbation.
DIAGNOSIS
Congestive heart failure exacerbation (ICD-10: I50.9).
Past History
Past History
ED Past Medical History: Cancer (breast, with radiation therapy), CVA (April 2021), HTN (labile), NIDDM, Seizures (Possible seizures, abnormal EEG), Psychiatric (major depression), Other (iron deficiency anemia, aortic stenosis, pulmonary
hypertension, seizure) and Other (hiatal hernia)
ED Past Surgical History: Appendectomy, Gynecological (hysterectomy) and Other (left-sided mastectomy 2017, right CEA)
Social History
Tobacco: Other (distant history)
Alcohol: None
Drug: None
Personal:
Living: with family
Employment: Retired
Family History
Family History: Other (reviewed and noncontributory)
Phy Exam
Physical Exam
Physical Exam:
.
Scores
Heart Failure Risk
Heart Failure Risk Score: Yes
History of Stroke or TIA: Yes
History of intubation for respiratory distress: No
Heart rate on ED arrival >/= 110: No
SaO2 <90% on arrival on room air: Yes
HR >/=110 during 3min walk test (or too ill to perform test): Yes
ECG has acute ischemic changes: No
Urea >/=12mmol/L (BUN 33.6mg/dL): No
Serum CO2>/=35mmol/L: No
Troponin I or T elevated to [place] Level (0.4mg/dL): No
NT-proBNP >/=5,000ng/L (5,000pg/ml): Yes
HF Risk Score: 5
Admission Status: VERY HIGH RISK 39.8% Consider admission to hospital
Course
Orders/Labs/Results
Orders:
Orders
07/14/25 23:48
Cardiac Monitoring- Treatment ONCE
EKG- Treatment ONCE
IV Insert/Care/Rem.- Treatment PRN
O2 Therapy [RESP] Urgent
Titrate/Wean O2 to maintain O2 sat greater than (%): 93
Special Instructions: TO MAINTAIN CONTINUOUS O2 SATS >/= 93%
Pulse Ox/cont/shift [RESP] Urgent
Quantity: 1
Special Instructions: continuous pulse ox
07/14/25 23:59
Complete Blood Count/With Diff Urgent
Comprehensive Metabolic Panel Urgent
NT-proBNP Urgent
Troponin I Urgent
07/15/25 00:00
CR Chest - 2 Views Urgent
Reason For Exam: respiratory distress
07/15/25 00:29
Furosemide [Lasix] 40 mg IV NOW STA
07/15/25 01:59
Admit/Transfer Patient As Directed
Co-Sign Provider:
Level of Care: Inpatient admission
Assign to:: Telemetry
Physician / Group: Godfrey
Diagnosis: CHF
Reason for Telemetry: Acute Heart Failure
Date to Stop Telemetry: 07/18/25
Time to Stop Telemetry: 11:00
Reason for Hospitalization: CHF
Expected length of stay greater than two midnights?: Yes
ELOS- Estimated Length of Stay in days: 3
I certify the patient meets the requirements for IP care: Yes
07/15/25 02:00
PRN Pain Medication Management As Directed
May give lesser potent ordered pain med per pt: Yes
preference::
Protocol:: Medication orders for pain may be administered in a
manner that supports deferring to patient preference
when the pt is:
- Requesting an ordered lesser potent pain medication.
Least to most potent pain medications are defined
as: acetaminophen < NSAID < tramadol < opioids
(morphine, oxycodone, hydromorphone).
- Requesting a lesser dose of the same medication IF
ORDERED.
- Requesting a less intrusive route of administration
if both routes are prescribed by the provider (PO <
IV).
07/15/25 02:01
Code Status As Directed
Resuscitation Status: Do not resuscitate
Reached after discussion with pt or family/Healthcare POA: Yes
07/15/25 02:02
DNR Bracelet Application ONCE
07/15/25 03:46
Acetaminophen [Tylenol] 650 mg PO Q4HPRN PRN
Alprazolam [Xanax] 0.25 mg PO BIDPRN PRN Anxiety
Dextrose 50%-Water [Dextrose 50% Syringe] 12.5 grams IV [id number] PRN
Glucagon [GlucaGen] 1 mg IM PRN PRN
Ipratropium/Albuterol Sulfate [Duoneb] 3 ml INH R Q4HPRN PRN Shortness of breath/wheeze
07/15/25 03:46
CARDIOLOGY CONSULT Routine
Consulting Provider: El Sidhu
Was physician already notified: No
Reason for consult: CHF
Consult Notification Routine
Specialty to Notify: Cardiology
Date consulting provider notified: 07/15/25
Time consulting provider notified: 07:00
Notified:: Provider
Comment: Dr. Sidhu notified in am
Activity As Directed
Activity Level: Ambulate
With Assistance
Bedside Glucose Monitoring As Directed
Frequency: AC&HS
Additional Instructions:: Change to q6h if pt on TPN, tube feeding or not eating
EKG with chest pain [ECG as needed] As Directed
ECG as needed for:: Chest Pain
I/O [Intake/ Output] As Directed
Frequency: Per unit guidelines
Vital Signs As Directed
Frequency: Per unit guidelines
Weight As Directed
Frequency: Daily
Oxygen Therapy [O2 Therapy] [RESP] Routine
Titrate/Wean O2 to maintain O2 sat greater than (%): 94
Ot Eval And Treat Routine
PT Consult [Pt Eval And Treat] Routine
Activity Level: Ambulate
With Assistance
07/15/25 04:00
Basic Metabolic Panel IN AM
Complete Blood Count/No Diff IN AM
Troponin I Q6H
07/15/25 Breakfast
1800 calorie (15 carb) Diabetic
At Your Request: Limited Participation
Does patient need a safe tray?: No
Fluid Restriction: 1440 mL/day (48 oz)
07/15/25 07:30
Insulin Aspart Corrective Low [Novolog Flexpen-Low Resistance] See Protocol SC AC
07/15/25 08:00
Amiodarone [Pacerone] 200 mg PO DAILY
Apixaban [Eliquis] 2.5 mg PO BID
Capsaicin [Zostrix-Hp 0.075% Cream] 1 applic TOPICAL QID
Furosemide [Lasix] 40 mg IV DAILY
Lactobac/Bifidobac [Visbiome] 1 cap PO DAILY
Methenamine Hippurate [Hiprex] 1 gram PO BID
Pantoprazole [Protonix] 40 mg PO DAILY
Polyethylene Glycol Powder [Miralax] 17 grams PO DAILY
07/15/25 15:25
Troponin I Q6H
07/15/25 18:00
Ropinirole [Requip] 0.5 mg PO DAILY@1800
07/15/25 22:00
Melatonin 5 mg PO HS
07/18/25 11:00
DC Protocol for Telemetry ONCE
Abnormal Lab Results
07/14/25
23:59
RBC 3.55 L 10^6/uL
(4.20-5.40)
Hgb 10.6 L g/dL
(12.0-16.0)
Hct 31.8 L %
(37.0-47.0)
RDW 15.5 H %
(11.5-14.5)
Absolute Lymphs (auto) 1.1 L 10^3/uL
(1.2-3.4)
Lymphocytes % 16.5 L %
(20.5-51.1)
Sodium 126 L mmol/L
(135-145)
Chloride 96 L mmol/L
(98-107)
Carbon Dioxide 20 L mmol/L
(22-30)
BUN 26 H mg/dl
(7-17)
Glucose 161 H mg/dl
(70-99)
AST 60 H U/L
(14-36)
Troponin I 0.045 H* ng/ml
07/14/25 23:59
07/14/25 23:59
Vital Signs
Initial and Last Documented VS:
Initial Vital Signs
Temp Pulse Resp BP Pulse Ox
97.9 F 78 28 117/97 89
07/14/25 23:49 07/14/25 23:49 07/14/25 23:49 07/14/25 23:49 07/14/25 23:49
Last Documented Vital Signs
Temp Pulse Resp BP Pulse Ox
97.9 F 70 17 122/55 97
07/15/25 23:40 07/15/25 23:40 07/15/25 23:40 07/15/25 23:40 07/16/25 00:23
*Pulse Oximetry
SaO2: 96
Nasal Cannula flow liters per minute: 2
Oxygen Mode of Delivery: Room air
Patient hypoxic: no
*Critical Care Note
Total Time (30-74mins, 75-104mins- exclusive of procedures): 32
comment:
Critical care statement: A total of 32 minutes of critical care time was provided for this patient. This time is separate from time utilized to perform the aforementioned documented procedures. Aggregate critical care time includes only time
during which I was engaged in work directly related to the patient's care, as described above, whether at the bedside or elsewhere in the Emergency Department.
ED Attending Note
-
Portions of this chart may have been created with voice recognition software.� Occasional wrong word or��sound alike� substitutions may have occurred due to the inherent limitations of voice recognition software.
Discharge Plan
Departure
Patient Disposition: Admit
Date of Disposition: 07/15/25
Time of Disposition: 00:46
Admit to: Telemetry
Presentation/result/management discussed w/ accepting MD/DO: Hospitalist
Discharge Problem:
Acute exacerbation of CHF (congestive heart failure), Shortness of breath, Acute hypokalemia
Interventions
Interventions:
*Risk Screen - Suicide Last Done: 07/14/25 23:49
*General Assessment Last Done: 07/14/25 23:49
*Neglect/Abuse Screening Last Done: 07/14/25 23:49
*ED- Fall Risk Assessment Last Done: 07/14/25 23:49
*ED COVID-19 Vaccine History Last Done: 07/14/25 23:49
*ED Influenza Vaccine History Last Done: 07/14/25 23:49
*Nursing Disposition Last Done: 07/15/25 15:50
ED- Cardiac Assessment Last Done: 07/15/25 00:12
ED- Pulmonary Assessment Last Done: 07/15/25 00:12
Discharge Date and Time
Discharge Date/Time: 07/15/25 15:50
[2025-07-15] MEDS: LASIX 40 MG IV ×2 (01:07→08:19)
--- NOTE | 2025-07-15 02:04 | HPS.HSE ---
Family Physician
-
Family Physician: Abiel Toth
Chief Complaint
-
SOB
History of Present Illness
Patient is an 89y F with PMH significant for HFmrEF, DM-II and ASCVD who presents to ED complaining of SOB and weakness. Patient states that she has felt more short of breath at home over the past several days. She denies any cough, fevers /
chills, chest pain or palpitations. She denies any LE edema, but has noted some abdominal fullness / distention. Patient has been compliant with her usual diuretic regimen. She denies any specific dietary indiscretions, med changes or other
potential triggers. Patient weighs herself at home daily and notes that her weight today was 140 lbs - up from a baseline usually around 133.
Medical History
Past Medical History
Past Medical History: Reports Other
Additional Past Medical History:
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
Chronic HFmrEF
Severe Aortic Stenosis
DM-II
Seizure Disorder
Restless Leg Syndrome
Breast Cancer s/p Surgery and XRT
GERD / Hiatal Hernia
Past Surgical History: Reports Other
Additional Past Surgical History:
Left mastectomy
Right Carotid Stent
Hysterectomy
Partial Bowel Resection
Back Surgery
Social History
Tobacco: Non-smoker
Alcohol: None
Drug: None
Family History
Family History: Not pertinent
Allergies / Home Medications
Allergies reflects when Allergies were last updated in [employer].
Home Medications with original date entered in [employer]
Allergy/Medication List:
Allergies
Allergy/AdvReac Type Severity Reaction Status Date / Time
codeine Allergy Nausea Verified 06/16/25 13:21
morphine Allergy Unknown Verified 06/16/25 13:21
nitrofurantoin (From Allergy Hives Verified 06/16/25 13:21
Macrobid)
Home Medications
vitamins A,C,H-tiho-jljjpj 4,296 mcg-226 mg-90 mg capsule (PreserVision AREDS) 1 cap PO BID Supplement 02/09/22
methenamine hippurate 1 gram tablet 1 g PO BID Urinary Issue 09/08/24
ropinirole 0.5 mg tablet 0.5 mg PO HS RESTLESS LEG 09/08/24
alprazolam 0.5 mg tablet 0.25 mg (1/2 x 0.5 mg) PO BIDPRN PRN Anxiety #6 tabs 09/17/24
Lactobac no.2-Bifidobac no.1-S. thermo 112.5 billion cell capsule (Visbiome) 1 cap PO DAILY Supplement 05/22/25
ascorbic acid (vitamin C) 500 mg tablet (Vitamin C) 500 mg PO DAILY Supplement 05/22/25
cholecalciferol (vitamin D3) 25 mcg (1,000 unit) tablet (Vitamin D3) 25 mcg PO DAILY Supplement 05/22/25
cyanocobalamin (vitamin B-12) 1,000 mcg tablet 1,000 mcg PO DAILY Supplement 05/22/25
lidocaine 4 % topical patch 1 patch topical HS lower back pain 05/22/25
melatonin 5 mg tablet 5 mg PO HS Sleep 05/22/25
polyethylene glycol 3350 17 gram oral powder packet (Miralax) 17 g PO DAILY Constipation 05/22/25
amiodarone 200 mg tablet 200 mg PO DAILY Arrhythmia 06/16/25
apixaban 2.5 mg tablet (Eliquis) 2.5 mg PO BID Blood Clot Prevention/Tx 06/16/25
capsaicin 0.075 % topical cream (Arthritis Pain Relief (capsaicin)) 1 applic topical QID Arthritis 06/16/25
magnesium oxide 500 mg PO BID Supplement 06/16/25
pantoprazole 40 mg tablet,delayed release 40 mg PO DAILY Gastrointestinal Issue 06/16/25
acetaminophen 325 mg tablet 650 mg (2 x 325 mg) PO Q6HPRN PRN pain #0 tabs 06/19/25
furosemide 20 mg tablet 40 mg (2 x 20 mg) PO DAILY Fluid Retention/Swelling #60 tabs 06/19/25
ipratropium 0.5 mg-albuterol 3 mg (2.5 mg base)/3 mL nebulization soln 3 ml inhalation R Q4HPRN PRN Shortness of breath/wheeze #90 mL 06/20/25
metformin 500 mg tablet 500 mg PO DAILY Diabetes 07/15/25
Review of Systems
-
History Source: Patient
A 12 point ROS was completed and negative except as noted: Yes
Constitutional: Reports Weight Gain and Fatigue; Denies Fever or Chills
Respiratory: Reports Trouble Breathing; Denies Cough or Hemoptysis
Cardiac: Denies Chest Pain or Palpitations
Abdomen/GI: Denies Abdominal Pain, Nausea, Vomiting or Diarrhea
: Denies Dysuria, Frequency or Flank Pain
Musculoskeletal: Denies Joint Pain
Neurological: Denies Dizzy or Headache
Psych: Denies Depression or Anxiety
Physical Exam
Vital Signs
Vital Signs
Temp Pulse Resp BP Pulse Ox
97.9 F 74 19 124/56 96
07/14/25 23:49 07/15/25 01:07 07/15/25 01:00 07/15/25 01:07 07/15/25 01:07
Physical Exam
General: Other (Anxious appearing 89y F.)
HEENT: Moist mucous membranes and Other (Pos JVD and HJR.)
Respiratory: Other (Bibasilar rales about 1/3 up. No wheezing.)
Cardiac: S1/S2, Regular Rhythm and Murmur (IV/ MYNOR)
GI: Non Tender, Non Distended, Normal Bowel Sounds and Other (Softly distended.)
Musculoskeletal: No Clubbing, No Cyanosis and Other (1+ pitting edema b/l LEs.)
Neuro: Nonfocal/grossly intact
Laboratory Results
-
07/14/25 23:59
07/14/25 23:59
Laboratory Results
Total Bilirubin 1.1 mg/dl (0.2-1.3) 07/14/25 23:59
AST 60 U/L (14-36) H 07/14/25 23:59
ALT 32 U/L (0-35) 07/14/25 23:59
Alkaline Phosphatase 99 U/L (38-126) 07/14/25 23:59
Troponin I 0.045 ng/ml H* 07/14/25 23:59
Impression/Plan
-
A/P: Patient is an 89y F with PMH significant for CHF, Aortic Stenosis and DM-II who presents to ED complaining of SOB x several days.
Acute on Chronic HFmrEF
Severe Aortic Stenosis
- Admit for further evaluation and treatment.
- Patient presents with rales on exam, abnormal CXR, significant weight gain at home and markedly elevated ProBNP compared to prior.
- Change Lasix to IV and follow for effective diuresis.
- Echo done 04/2025 with LVEF = 40-45% and severe .
- Cardiology evaluation for additional recommendations.
Chronic Hyponatremia
- Likely secondary to CHF / hypervolemia
- Follow for some degree of improvement with diuresis - though not far from usual baseline.
ASCVD
Abnormal Troponin
- Stable. No chest pain. EKG unchanged from prior tracings.
- Troponin elevation likely non-ischemic myocardial injury due to CHF.
- Follow to [facility].
- Continue usual CV med regimen.
Paroxysmal Atrial Fibrillation
- Stable. In NSR at present.
- Continue amiodarone, Eliquis, etc.
DM-II
- Stable. Follow glucose and cover with SSI as needed.
- Hgb A1C was 7% in 04/2025.
RLS
Anxiety / Depression
- Continue current medications including Requip and PRN Xanax.
DVT Prophylaxis: On Eliquis
Code Status: DNR
[2025-07-15 04:15] LABS: Hematocrit 27.3 % (37.0-47.0); Hemoglobin 9.1 g/dL (12.0-16.0); Mean Corp Hgb Conc. 33.3 g/dL (33.0-37.0); Mean Corpuscular Volume 89.2 fL (81.0-99.0); Platelet Count 205 10^3/uL (130-400); Red Cell Dist. Width 15.6 % (11.5-14.5)
[2025-07-15 04:32] LABS: Blood Urea Nitrogen 24 mg/dl (7-17); Calcium 8.1 mg/dl (8.4-10.2); Carbon Dioxide 21 mmol/L (22-30); Chloride 101 mmol/L (98-107); Glucose 128 mg/dl (70-99); Potassium 3.7 mmol/L (3.5-5.1); Sodium 130 mmol/L (135-145); eGFR > 60.00
[2025-07-15 04:44] LABS: Troponin I 0.034 ng/ml
[2025-07-15 08:19] LABS: Glucose - Point of Care 152 mg/dl (70-99)
[2025-07-15] MEDS: PROTONIX 40 MG PO (08:19)
[2025-07-15] MEDS: MIRALAX 17 GRAMS PO (08:19)
[2025-07-15] MEDS: HIPREX 1 GRAM PO ×2 (08:19→19:43)
[2025-07-15] MEDS: ELIQUIS 2.5 MG PO ×2 (08:19→19:43)
[2025-07-15] MEDS: VISBIOME 1 CAP PO (08:19)
[2025-07-15] MEDS: PACERONE 200 MG PO (08:19)
[2025-07-15] MEDS: ZOSTRIX-HP 0.075% CREAM TOPICAL ×3 (09:52→18:23)
[2025-07-15] MEDS: NOVOLOG FLEXPEN-LOW RESISTANCE 1 UNITS SC ×2 (09:54→12:52)
--- NOTE | 2025-07-15 11:05 | EDCM ---
CM reviewed chart and met with pt bedside in ED. Pt currently at [facility] for respite as her daughter is away, she is supposed to return on 07/18. Pt states she is happy with the care she is receiving there.
Has had several recent admissions 05/22 to 05/25 and 06/16 to 06/20.
Lives with daughter in 2 story home, [address].
She is independent with most ADLs, daughter assists with personal care, ambulates with RW. Has shower chair and grab rails in shower.
hx [facility], no hx SNF
PCP: Abiel Toth at [facility], [facility] at home
Pharmacy: [facility] while at [facility], [facility] when at home.
CM will continue to follow for all discharge planning needs.
[2025-07-15 11:17] LABS: Glucose - Point of Care 188 mg/dl (70-99)
--- NOTE | 2025-07-15 12:39 | CON.CAR ---
Consultation
Consultation Request
Date/Time Consultation Requested: 07/15/25 9:00AM
Date/Time Consultation Performed: 07/15/25 12:00noon
Requesting Provider: Dr Sarkar
Performing Provider: Dr Sidhu
Reason for Consultation: sob
Medical History
-
Chief Complaint: sob
History of Present Illness:
89-year-old female well-known to our service recently discharged from the hospital June 16, 2025 with acute on chronic heart failure with mildly reduced ejection fraction and severe aortic stenosis returns with more shortness of breath, weight
gain, fatigue, and orthopnea. The patient lives at home with her daughter. She has had increased fatigue and symptoms for the past 3 to 4 days. She denies any lower extremity edema but does have abdominal fullness. Her baseline weight is around
133 her weight today was up to 140 pounds. She denies any dietary indiscretion. She has no chest pains. She has no palpitations or syncope. She has no bleeding or falls. Her energy is slowly declining and feeding. She is DNR. She has declined
cardiac cath and evaluation for her aortic stenosis in the past.
PMH:
Paroxysmal atrial fibrillation
Chronic HFmrEF
Severe aortic stenosis
Hyponatremia
Abnormal stress test
h/o multiple ischemic strokes which have been felt likely to represent small vessel disease and atherosclerosis
Autonomic dysfunction/hypotension/orthostasis treated with midodrine as needed
Type 2 diabetes with diabetic neuropathy
History of seizure disorder
Breast Ca with Radiation Therapy s/p Left Mastectomy
GERD/Hiatal Hernia
Carotid stenosis, right s/p stent
Hypercholesterolemia
RLS
UTIs
Hysterectomy
History of bowel resection
Back surgery
Iron Deficiency
Congenital malformation of esophagus
Postmenopausal atrophic vaginitis
Gait difficulty
Dysphagia
Former smoker
Past Medical History
Past Surgical History: Bowel Resection
Social History
Tobacco: Non-Smoker
Alcohol: None
Living: With Family
Family History
Family History: Hypertension
Allergies / Home Medications
Allergy/AdvReac Type Severity Reaction Status Date / Time
codeine Allergy Nausea Verified 06/16/25 13:21
morphine Allergy Unknown Verified 06/16/25 13:21
nitrofurantoin (From Allergy Hives Verified 06/16/25 13:21
Macrobid)
�Medication �Instructions �Recorded �Confirmed �Type
vitamins A,C,K-atov-utfitm 4,296 1 cap PO BID Supplement 02/09/22 07/15/25 History
mcg-226 mg-90 mg capsule
(PreserVision AREDS)
methenamine hippurate 1 gram tablet 1 g PO BID Urinary Issue 09/08/24 07/15/25 History
ropinirole 0.5 mg tablet 0.5 mg PO HS RESTLESS LEG 09/08/24 07/15/25 History
alprazolam 0.5 mg tablet 0.25 mg (1/2 x 0.5 mg) PO BIDPRN 09/17/24 07/15/25 Rx
PRN Anxiety #6 tabs
Lactobac no.2-Bifidobac no.1-S. 1 cap PO DAILY Supplement 05/22/25 07/15/25 History
thermo 112.5 billion cell capsule
(Visbiome)
ascorbic acid (vitamin C) 500 mg 500 mg PO DAILY Supplement 05/22/25 07/15/25 History
tablet (Vitamin C)
cholecalciferol (vitamin D3) 25 25 mcg PO DAILY Supplement 05/22/25 07/15/25 History
mcg (1,000 unit) tablet (Vitamin
D3)
cyanocobalamin (vitamin B-12) 1,000 mcg PO DAILY Supplement 05/22/25 07/15/25 History
1,000 mcg tablet
lidocaine 4 % topical patch 1 patch topical HS lower back pain 05/22/25 07/15/25 History
melatonin 5 mg tablet 5 mg PO HS Sleep 05/22/25 07/15/25 History
polyethylene glycol 3350 17 gram 17 g PO DAILY Constipation 05/22/25 07/15/25 History
oral powder packet (Miralax)
amiodarone 200 mg tablet 200 mg PO DAILY Arrhythmia 06/16/25 07/15/25 History
apixaban 2.5 mg tablet (Eliquis) 2.5 mg PO BID Blood Clot 06/16/25 07/15/25 History
Prevention/Tx
capsaicin 0.075 % topical cream 1 applic topical QID Arthritis 06/16/25 07/15/25 History
(Arthritis Pain Relief (capsaicin))
magnesium oxide 500 mg PO BID Supplement 06/16/25 07/15/25 History
pantoprazole 40 mg tablet,delayed 40 mg PO DAILY Gastrointestinal 06/16/25 07/15/25 History
release Issue
acetaminophen 325 mg tablet 650 mg (2 x 325 mg) PO Q6HPRN PRN 06/19/25 07/15/25 Rx
pain #0 tabs
furosemide 20 mg tablet 40 mg (2 x 20 mg) PO DAILY Fluid 06/19/25 07/15/25 Rx
Retention/Swelling #60 tabs
ipratropium 0.5 mg-albuterol 3 mg 3 ml inhalation R Q4HPRN PRN 06/20/25 07/15/25 Rx
(2.5 mg base)/3 mL nebulization Shortness of breath/wheeze #90 mL
soln
metformin 500 mg tablet 500 mg PO DAILY Diabetes 07/15/25 07/15/25 History
Review of Systems
-
History Source: Patient
Constitutional: Weight Gain and Fatigue
EENT: No Symptoms
Respiratory: Trouble Breathing
Cardiac: No Symptoms
Abdomen/GI: No Symptoms
: No Symptoms
Musculoskeletal: No Symptoms
Skin: No Symptoms
Neurological: No Symptoms
Endocrine: No Symptoms
Physical Exam
Vital Signs
Temp Pulse Resp BP Pulse Ox
97.5 F 68 15 110/63 100
07/15/25 12:29 07/15/25 12:22 07/15/25 12:22 07/15/25 12:22 07/15/25 12:29
Lab Results
07/15/25 04:00
07/15/25 04:00
Troponin I 0.034 ng/ml 07/15/25 04:00
Zkn-G-Qzudtvemsgz Pept 80396 pg/ml 07/14/25 23:59
Physical Exam
General: Other (Elderly and frail female)
HEENT: Normocephalic and Anicteric
Respiratory: Rhonchi and Non Labored Respirations
Cardiac: S1/S2, Regular Rhythm and Murmur (3/6 systolic murmur heard best at right sternal border)
GI: Soft, Non Tender and Non Distended
Musculoskeletal: No Edema
Skin: Warm and Dry
Neuro: Awake
Psych: Calm
Impression / Plan
-
Assess:
Acute on chronic heart failure mildly reduced EF
Severe aortic stenosis
Hyponatremia
UTI
Elevated troponin
Paroxysmal atrial fibrillation
CM EF 40-45% Apr 2024
Abnormal stress test, patient has declined cardiac catheterization on multiple occasions as OP
h/o multiple ischemic strokes which have been felt likely to represent small vessel disease and atherosclerosis
Autonomic dysfunction/hypotension/orthostasis treated with midodrine as needed
Carotid stenosis, right s/p stent
Hypercholesterolemia
Type 2 diabetes with diabetic neuropathy
History of seizure disorder
Breast Ca with Radiation Therapy s/p Left Mastectomy
GERD/Hiatal Hernia
RLS
UTIs
PSH: Hysterectomy /History of bowel resection/ Back surgery
Iron Deficiency
Congenital malformation of esophagus
Gait difficulty
Dysphagia
Former smoker
Echo 05/15/2024: EF 40 to 45%, global hypokinesis, stage II diastolic dysfunction, MAC, mild MR, mild to moderate with peak/mean gradients 27/18 mmHg, KAYLEIGH 1.4 cm�, trace AR
ECHO 05/25/2024: EF 40 to 45%, apex, inferolateral, inferior and anterior perez are hypokinetic, appears stable compared to prior.
Echo 09/08/2024: EF 40-45%, inferior, inferolateral, anterior, and apical hypokinesis. Mild MS, MAC, mild MR, moderate to severe (57/32 mmHg), mild to moderate TR, mild pulmonary hypertension PASP 43 mmHg
Echo 05/23/2025: LVEF 40 to 45%, normal RV size and function, severe , KAYLEIGH 0.6 cm�, mild MS, mild MR, mild TR, PAP 45 mmHg
Plan:
She presents with recurrent acute heart failure with mildly reduced ejection fraction. Her proBNP is the highest that it has been. Her weight is up and she feels poorly.
-Agree with IV diuresis, gentle diuresis in setting of severe . Continue Lasix 40 mg IV daily.
-admit to telemetry
-daily wt, I&O
-monitor Na on Lasix, it currently is stable at 130.
-Hypotension has limited up titration of GDMT in past. Did not tolerate Toprol or DAVID inhibitor in the past due to hypotension. Patient is current on Lasix only. She is not candidate for SGLT2 due to history of UTIs.
-She was previously on midodrine for BP support. May need to start.
-She remains in sinus rhythm. Continue amiodarone and Eliquis. Hemoglobin is 9.1 and has decreased. Continue to follow.
-Her long-term prognosis is very poor. She is DNR but we may be approaching possible palliative care/hospice evaluation.
-She has declined interventions including cardiac cath and evaluation for her severe aortic stenosis. I suspect her course is continue to slowly worsen.
Data Reviewed
-
EKG: Tracing Personally Visualized and interpreted
Radiology: Report Reviewed by me
Medical Tests (Nuc Med, Echo etc): Report Reviewed by me
Labs: Labs Reviewed by me
Old Records: Reviewed
--- NOTE | 2025-07-15 12:41 | W.PN.UPDATE ---
Update Note
Progress Note Update
Patient seen and examined after postmidnight admission. Currently denies shortness of breath. Vital signs stable. No acute distress, awake and alert. Regular rate and rhythm, normal S1-S2. Rales in the bases bilaterally.
Continue care as outlined in the H&P done on admission for acute on chronic heart failure with moderately reduced ejection fraction exacerbated by severe aortic stenosis, IV Lasix, daily weights, I/O.
[2025-07-15 16:07] LABS: Troponin I 0.031 ng/ml
[2025-07-15 16:08] LABS: Glucose - Point of Care 257 mg/dl (70-99)
--- NOTE | 2025-07-15 16:28 | TRANSFER ---
Pt transferred from ED to 430 at 1600. VSS, admission and assessment completed by this RN. Pt oriented to room, call bartlett within reach. No pain, no needs at this time. Placed on tele monitor #37, NSR.
[2025-07-15] MEDS: NOVOLOG FLEXPEN-LOW RESISTANCE 3 UNITS SC (18:16)
[2025-07-15] MEDS: REQUIP 0.5 MG PO (18:32)
[2025-07-15] MEDS: XANAX 0.25 MG PO (21:01)
[2025-07-15] MEDS: MELATONIN 5 MG PO (21:02)
[2025-07-15] MEDS: ZOSTRIX-HP 0.075% CREAM 1 APPLIC TOPICAL (21:04)
[2025-07-15] MEDS: TYLENOL 650 MG PO (21:05)
[2025-07-15 21:45] LABS: Glucose - Point of Care 151 mg/dl (70-99)
[2025-07-16] VITALS (8 sets, daily range): BP systolic 114–144; BP diastolic 55–93; BMI 20.5
--- NOTE | 2025-07-16 00:49 | PTCARENOTE ---
while sleeping SpO2=84 on room air. Placed on 3L SpO2=96% while sleeping.
[2025-07-16 07:37] LABS: Glucose - Point of Care 184 mg/dl (70-99)
[2025-07-16] MEDS: NOVOLOG FLEXPEN-LOW RESISTANCE 1 UNITS SC ×2 (07:46→12:40)
[2025-07-16] MEDS: HIPREX 1 GRAM PO ×2 (07:47→20:08)
[2025-07-16] MEDS: VISBIOME 1 CAP PO (07:47)
[2025-07-16] MEDS: ELIQUIS 2.5 MG PO ×2 (07:54→20:07)
[2025-07-16] MEDS: PROTONIX 40 MG PO (07:54)
[2025-07-16] MEDS: PACERONE 200 MG PO (07:54)
[2025-07-16] MEDS: MIRALAX 17 GRAMS PO (07:55)
[2025-07-16] MEDS: LASIX 40 MG IV (07:56)
[2025-07-16] MEDS: ZOSTRIX-HP 0.075% CREAM 1 APPLIC TOPICAL ×3 (07:57→21:30)
--- NOTE | 2025-07-16 09:11 | W.PN.CARDCBS ---
Today's Communication / Plan
-
Continue with gentle diuresis in setting of severe . Continue Lasix 40 mg IV daily.
Remains 9 lbs above d/c wt from May 2025.
Cont to monitor daily wt, I&O
Cont to monitor Na on Lasix, it has been stable.
Hypotension has limited up titration of GDMT in past.
Did not tolerate Toprol or DAVID inhibitor in the past due to hypotension.
Patient is current on Lasix only.
She is not candidate for SGLT2 due to history of UTIs.
Cont to monitor bp. She was previously on midodrine for BP support. Low threshold to resume if needed.
Remains in sinus rhythm. Continue amiodarone and Eliquis.
Hemoglobin is 9.1 07/15 and has decreased. Cont to monitor H/H
Her long-term prognosis is very poor.
She is DNR but we may be approaching possible palliative care/hospice evaluation.
-She has declined interventions including cardiac cath and evaluation for her severe aortic stenosis.
Impression / Plan
-
.
Primary Switch Adjuster: Dr. Funes
Impression:
Acute on chronic heart failure mildly reduced EF
Severe aortic stenosis
Hyponatremia
UTI
Elevated troponin
Paroxysmal atrial fibrillation
CM EF 40-45% Apr 2024
Abnormal stress test, patient has declined cardiac catheterization on multiple occasions as OP
h/o multiple ischemic strokes which have been felt likely to represent small vessel disease and atherosclerosis
Autonomic dysfunction/hypotension/orthostasis treated with midodrine as needed
Carotid stenosis, right s/p stent
Hypercholesterolemia
Type 2 diabetes with diabetic neuropathy
History of seizure disorder
Breast Ca with Radiation Therapy s/p Left Mastectomy
GERD/Hiatal Hernia
RLS
UTIs
PSH: Hysterectomy /History of bowel resection/ Back surgery
Iron Deficiency
Congenital malformation of esophagus
Gait difficulty
Dysphagia
Former smoker
Echo 05/15/2024: EF 40 to 45%, global hypokinesis, stage II diastolic dysfunction, MAC, mild MR, mild to moderate with peak/mean gradients 27/18 mmHg, KAYLEIGH 1.4 cm�, trace AR
ECHO 05/25/2024: EF 40 to 45%, apex, inferolateral, inferior and anterior perez are hypokinetic, appears stable compared to prior.
Echo 09/08/2024: EF 40-45%, inferior, inferolateral, anterior, and apical hypokinesis. Mild MS, MAC, mild MR, moderate to severe (57/32 mmHg), mild to moderate TR, mild pulmonary hypertension PASP 43 mmHg
Echo 05/23/2025: LVEF 40 to 45%, normal RV size and function, severe , KAYLEIGH 0.6 cm�, mild MS, mild MR, mild TR, PAP 45 mmHg
Plan:
She presents with recurrent acute heart failure with mildly reduced ejection fraction. Her proBNP is the highest that it has been. Her weight is up and she feels poorly.
Continue with gentle diuresis in setting of severe . Continue Lasix 40 mg IV daily.
Remains 9 lbs above d/c wt from May 2025.
Cont to monitor daily wt, I&O
Cont to monitor Na on Lasix, it has been stable.
Hypotension has limited up titration of GDMT in past.
Did not tolerate Toprol or DAVID inhibitor in the past due to hypotension.
Patient is current on Lasix only.
She is not candidate for SGLT2 due to history of UTIs.
Cont to monitor bp. She was previously on midodrine for BP support. Low threshold to resume if needed.
Remains in sinus rhythm. Continue amiodarone and Eliquis.
Hemoglobin is 9.1 07/15 and has decreased. Cont to monitor H/H
Her long-term prognosis is very poor.
She is DNR but we may be approaching possible palliative care/hospice evaluation.
-She has declined interventions including cardiac cath and evaluation for her severe aortic stenosis.
HPI: 89-year-old female well-known to our service recently discharged from the hospital June 16, 2025 with acute on chronic heart failure with mildly reduced ejection fraction and severe aortic stenosis returns with more shortness of breath,
weight gain, fatigue, and orthopnea. The patient lives at home with her daughter. She has had increased fatigue and symptoms for the past 3 to 4 days. She denies any lower extremity edema but does have abdominal fullness. Her baseline weight is
around 133 her weight today was up to 140 pounds. She denies any dietary indiscretion. She has no chest pains. She has no palpitations or syncope. She has no bleeding or falls. Her energy is slowly declining and feeding. She is DNR. She has
declined cardiac cath and evaluation for her aortic stenosis in the past.
Progress Note - Switch Adjuster
Subjective
Date of Service: July 16, 2025
Pt seen and examined. No complaints. No chest pain or shortness of breath.
Objective
Labs:
07/15/25 04:00
07/15/25 04:00
Labs
Hgb 9.1 g/dL (12.0-16.0) L 07/15/25 04:00
Hct 27.3 % (37.0-47.0) L 07/15/25 04:00
Plt Count 205 10^3/uL (130-400) 07/15/25 04:00
Sodium 130 mmol/L (135-145) L 07/15/25 04:00
Potassium 3.7 mmol/L (3.5-5.1) 07/15/25 04:00
BUN 24 mg/dl (7-17) H 07/15/25 04:00
Creatinine 0.8 mg/dL (0.6-1.0) 07/15/25 04:00
Glucose 128 mg/dl (70-99) H 07/15/25 04:00
Troponins
07/14/25 07/15/25 07/15/25
23:59 04:00 09:46
Troponin I 0.045 H* 0.034 Cancelled
07/15/25
15:25
Troponin I 0.031
Vital Signs and I&O:
Vital Signs
Temp Pulse Resp BP Pulse Ox
97.5 F 72 12 120/71 98
07/16/25 07:30 07/16/25 07:30 07/16/25 07:30 07/16/25 07:30 07/16/25 07:30
Vital Signs
Temp Pulse Resp BP Pulse Ox
97.5 F 72 12 120/71 98
07/16/25 07:30 07/16/25 07:30 07/16/25 07:30 07/16/25 07:30 07/16/25 07:30
Physical Exam
Physical Exam
General: No acute distress, awake and aler
Neck: Negative JVD
Heart: Regular, Negative S3 positive S1/S2, Negative S4, MYNOR grade II/
Lungs: CTA b/l, negative wheezes/rales/rhonchi
Abd: Positive BS, NT/ND, neg rebound/rigidity/guarding
Ext: Negative cyanosis/clubbing/edema
Neuro: nonfocal
--- NOTE | 2025-07-16 09:18 | W.PN.HOSP.TC ---
Addendum entered and electronically signed by Benjamin Barber MD 07/16/25 16:34:
Called granddaughter and updated her about plan of care. Granddaughter also tells me that she had been seen by palliative care in the past and they will be open to reevaluation depending on how she does over the next few days.
Original Note:
Today's Communication/Plan
-
IV lasix
Assessment / Plan
Assessment / Plan
Physical exam:
General: Acute on chronically ill
HEENT: Normocephalic, Atraumatic and Moist Mucous Membranes
Respiratory: Coarse crackles; Negative Wheezes or Rhonchi
Cardiac: Regular Rhythm and S1/S2, systolic murmur
GI: Soft, Nontender and Nondistended
Musculoskeletal: No Clubbing, No Cyanosis. Bilateral lower extremity edema
Neuro: Awake, Alert and Oriented, no neurological deficits
Psych: Calm
A/P:
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
Continue IV Lasix 40 mg daily
Cautious to avoid hypotension in the setting of
GDMT limited by hypotension. Not a candidate for SGLT2 due to recurrent UTIs
Cardiology consult appreciated
Echo done 04/2025 with LVEF = 40-45% and severe .
Patient has declined cardiac intervention such as cardiac cath and evaluation for aortic stenosis as well
Might need to consider palliative care approach down the road
Repeated labs today while she is on diuresis
PT OT eval
Orthostatic hypotension:
Monitor blood pressure
Consider midodrine if drops but hold off given heart failure
Anemia:
No signs of active bleeding
Hb 11.1 today
Continue to monitor closely
Chronic Hyponatremia:
Improving
Up to 132 today with diuresis
Continue to monitor
ASCVD Abnormal Troponin:
Due to demand mismatch ischemia
Paroxysmal Atrial Fibrillation:
Continue antiarrhythmic, amiodarone 200 mg p.o. daily
Continue anticoagulation, Eliquis 2.5 mg p.o. twice a day
DM-II:
Continue insulin sliding scale
Hgb A1C was 7% in 04/2025.
RLS/Anxiety / Depression:
Continue current medications including Requip and PRN Xanax.
History of recurrent UTI:
On suppressive antibiotics, methenamine 1 g p.o. twice a day
On lactobacillus
GERD:
On PPI
DVT Prophylaxis:
On Eliquis
Code Status:
DNR
Total time spent on today's encounter was 55 minutes which included time spent in counseling the patient/family regarding diagnosis and treatment plan as listed above, goals of care, and symptom management. Case was discussed with nursing staff,
specialists, and care coordinators/case management. All labs and imaging personally reviewed by me. Remainder the time spent in detailed review of previous records, lab data, imaging, and other medical provider documentation.
Anticipated Discharge: > 48 hours
Subjective/Interval History
-
Date of Service: July 16, 2025
Patient still does not feel well overall. Less shortness of breath. No chest pain
Objective Data
-
Vital Signs:
Vital Signs
Temp Pulse Resp BP Pulse Ox
97.5 F 72 12 120/71 98
07/16/25 07:30 07/16/25 07:30 07/16/25 07:30 07/16/25 07:30 07/16/25 07:30
[2025-07-16] MEDS: TYLENOL 650 MG PO ×3 (10:14→21:23)
[2025-07-16 10:31] LABS: Hematocrit 34.8 % (37.0-47.0); Hemoglobin 11.1 g/dL (12.0-16.0); Mean Corp Hgb Conc. 31.9 g/dL (33.0-37.0); Mean Corpuscular Volume 94.1 fL (81.0-99.0); Platelet Count 244 10^3/uL (130-400); Red Cell Dist. Width 15.7 % (11.5-14.5)
[2025-07-16 10:58] LABS: Blood Urea Nitrogen 23 mg/dl (7-17); Calcium 9.0 mg/dl (8.4-10.2); Carbon Dioxide 26 mmol/L (22-30); Chloride 97 mmol/L (98-107); Estimated Creatinine Clearance 46 ml/min; Glucose 185 mg/dl (70-99); Magnesium 1.8 mg/dl (1.6-2.3); Potassium 3.8 mmol/L (3.5-5.1); Sodium 132 mmol/L (135-145); eGFR > 60.00
[2025-07-16 12:23] LABS: Glucose - Point of Care 193 mg/dl (70-99)
[2025-07-16] MEDS: XANAX 0.25 MG PO ×2 (14:29→21:20)
[2025-07-16 17:17] LABS: Glucose - Point of Care 147 mg/dl (70-99)
[2025-07-16] MEDS: NOVOLOG FLEXPEN-LOW RESISTANCE SC (17:32)
[2025-07-16] MEDS: REQUIP 0.5 MG PO (17:37)
[2025-07-16] MEDS: ZOSTRIX-HP 0.075% CREAM TOPICAL (17:42)
[2025-07-16] MEDS: MELATONIN 5 MG PO (21:20)
[2025-07-16 21:33] LABS: Glucose - Point of Care 192 mg/dl (70-99)
[2025-07-17] VITALS (7 sets, daily range): BP systolic 110–138; BP diastolic 56–91; BMI 20.1
[2025-07-17 06:21] LABS: Hematocrit 32.7 % (37.0-47.0); Hemoglobin 10.7 g/dL (12.0-16.0); Mean Corp Hgb Conc. 32.7 g/dL (33.0-37.0); Mean Corpuscular Volume 93.4 fL (81.0-99.0); Platelet Count 214 10^3/uL (130-400); Red Cell Dist. Width 15.7 % (11.5-14.5)
[2025-07-17 06:30] LABS: Blood Urea Nitrogen 24 mg/dl (7-17); Calcium 9.0 mg/dl (8.4-10.2); Carbon Dioxide 26 mmol/L (22-30); Chloride 99 mmol/L (98-107); Estimated Creatinine Clearance 45 ml/min; Glucose 149 mg/dl (70-99); Magnesium 1.9 mg/dl (1.6-2.3); Potassium 3.9 mmol/L (3.5-5.1); Sodium 129 mmol/L (135-145); eGFR > 60.00
[2025-07-17 06:39] LABS: Urine Character Slightly Cloudy (Clear)
[2025-07-17 06:46] LABS: Urine Red Blood Cell 0-2 /HPF (0-2); Urine Squamous Cell 0-2 /LPF (Few)
[2025-07-17 06:47] LABS: Urine White Cell 60-70 /HPF (0-5)
[2025-07-17] MEDS: PACERONE 200 MG PO (08:04)
[2025-07-17] MEDS: PROTONIX 40 MG PO (08:06)
[2025-07-17] MEDS: ELIQUIS 2.5 MG PO ×2 (08:07→19:25)
[2025-07-17] MEDS: LASIX 40 MG IV (08:07)
[2025-07-17] MEDS: VISBIOME 1 CAP PO (08:07)
[2025-07-17] MEDS: MIRALAX 17 GRAMS PO (08:09)
[2025-07-17] MEDS: HIPREX 1 GRAM PO ×2 (08:11→19:25)
[2025-07-17] MEDS: ZOSTRIX-HP 0.075% CREAM 1 APPLIC TOPICAL ×2 (08:12→21:42)
[2025-07-17] MEDS: NOVOLOG FLEXPEN-LOW RESISTANCE SC (08:17)
[2025-07-17 08:18] LABS: Glucose - Point of Care 145 mg/dl (70-99)
--- NOTE | 2025-07-17 11:08 | CM ---
Chart reviewed and physical therapy are recommending skilled placement options reviewed with patient and she has selected [facility] referral sent to [facility].
plan; Skilled placement when stable.
--- NOTE | 2025-07-17 11:38 | W.PN.CARDCBS ---
Today's Communication / Plan
-
Continue gentle IV diuresis
Replete potassium
Ongoing GOC discussion
Impression / Plan
-
Primary Component Engineer: Dr. Funes
Impression:
Presented 07/14/25 shortness of breath, weight gain, fatigue, and orthopnea
Acute on chronic heart failure mildly reduced EF, proBNP 46996
Severe aortic stenosis
Hyponatremia
UTI
Elevated troponin, peak 0.045
Paroxysmal atrial fibrillation
CM EF 40-45% Apr 2024
Abnormal stress test, patient has declined cardiac catheterization on multiple occasions as OP
h/o multiple ischemic strokes which have been felt likely to represent small vessel disease and atherosclerosis
Autonomic dysfunction/hypotension/orthostasis treated with midodrine as needed
Carotid stenosis, right s/p stent
Hypercholesterolemia
Type 2 diabetes with diabetic neuropathy
History of seizure disorder
Breast Ca with Radiation Therapy s/p Left Mastectomy
GERD/Hiatal Hernia
RLS
UTIs
PSH: Hysterectomy /History of bowel resection/ Back surgery
Iron Deficiency
Congenital malformation of esophagus
Gait difficulty
Dysphagia
Former smoker
Echo 05/15/2024: EF 40 to 45%, global hypokinesis, stage II diastolic dysfunction, MAC, mild MR, mild to moderate with peak/mean gradients 27/18 mmHg, KAYLEIGH 1.4 cm�, trace AR
ECHO 05/25/2024: EF 40 to 45%, apex, inferolateral, inferior and anterior perez are hypokinetic, appears stable compared to prior.
Echo 09/08/2024: EF 40-45%, inferior, inferolateral, anterior, and apical hypokinesis. Mild MS, MAC, mild MR, moderate to severe (57/32 mmHg), mild to moderate TR, mild pulmonary hypertension PASP 43 mmHg
Echo 05/23/2025: LVEF 40 to 45%, normal RV size and function, severe , KAYLEIGH 0.6 cm�, mild MS, mild MR, mild TR, PAP 45 mmHg
Plan:
She presented 07/14/25 with recurrent acute heart failure with mildly reduced ejection fraction. Her proBNP is the highest that it has been (36151).
Her weight is down several lbs overnight but she continues to feel poorly with fatigue and SOB
Continue with gentle diuresis in setting of severe . Continue Lasix 40 mg IV daily.
Remains 6 lbs above d/c wt from May 2025. Although pt reports to me baseline weight 129-130 lbs
Cont to monitor daily wt, I&O
K+ 3.9, replete
Cont to monitor Na on Lasix, it has been relatively stable.
Hypotension has limited up titration of GDMT in past.
Did not tolerate Toprol or DAVID inhibitor in the past due to hypotension.
Patient is current on Lasix only.
She is not candidate for SGLT2 due to history of UTIs.
Cont to monitor bp, somewhat labile. She was previously on midodrine for BP support. Low threshold to resume if needed.
Remains in sinus rhythm. Continue amiodarone and Eliquis.
Hemoglobin is 10.7 07/17. Cont to monitor H/H with diuresis
Her long-term prognosis is very poor.
She is DNR but we may be approaching possible palliative care/hospice evaluation.
-She has declined interventions including cardiac cath and evaluation for her severe aortic stenosis.
HPI: 89-year-old female well-known to our service recently discharged from the hospital June 16, 2025 with acute on chronic heart failure with mildly reduced ejection fraction and severe aortic stenosis returns with more shortness of breath,
weight gain, fatigue, and orthopnea. The patient lives at home with her daughter. She has had increased fatigue and symptoms for the past 3 to 4 days. She denies any lower extremity edema but does have abdominal fullness. Her baseline weight is
around 133 her weight today was up to 140 pounds. She denies any dietary indiscretion. She has no chest pains. She has no palpitations or syncope. She has no bleeding or falls. Her energy is slowly declining and feeding. She is DNR. She has
declined cardiac cath and evaluation for her aortic stenosis in the past.
Progress Note - Component Engineer
Subjective
Date of Service: July 17, 2025
Patient seen and examined. Patient reports he still feels poorly with ongoing fatigue and some shortness of breath.
Objective
Labs:
07/17/25 05:45
07/17/25 05:45
Labs
Hgb 10.7 g/dL (12.0-16.0) L 07/17/25 05:45
Hct 32.7 % (37.0-47.0) L 07/17/25 05:45
Plt Count 214 10^3/uL (130-400) 07/17/25 05:45
Sodium 129 mmol/L (135-145) L 07/17/25 05:45
Potassium 3.9 mmol/L (3.5-5.1) 07/17/25 05:45
BUN 24 mg/dl (7-17) H 07/17/25 05:45
Creatinine 0.8 mg/dL (0.6-1.0) 07/17/25 05:45
Glucose 149 mg/dl (70-99) H 07/17/25 05:45
Troponins
07/14/25 07/15/25 07/15/25
23:59 04:00 09:46
Troponin I 0.045 H* 0.034 Cancelled
07/15/25
15:25
Troponin I 0.031
Vital Signs and I&O:
Vital Signs
Temp Pulse Resp BP Pulse Ox
97.2 F 70 18 131/91 100
07/17/25 11:08 07/17/25 11:08 07/17/25 11:08 07/17/25 11:08 07/17/25 11:08
Vital Signs
Temp Pulse Resp BP Pulse Ox
97.2 F 70 18 131/91 100
07/17/25 11:08 07/17/25 11:08 07/17/25 11:08 07/17/25 11:08 07/17/25 11:08
Intake & Output
07/15/25 07/16/25 07/17/25 07/18/25
06:59 06:59 06:59 06:59
Intake Total 100 / 100
Output Total 500 / 500
Balance -400 / -400
Physical Exam
Physical Exam
GEN: No distress, awake, Ox3 sitting in chair currently on room air
HEENT: supple, anicteric, mmm
LUNGS: Slightly reduced breath sounds CTA, few scattered rales better with cough
CV: Reg, S1/S2, 2/6 harsh radiating systolic murmur
ABD: soft, BS+, NT/ND
EXT: No edema, clubbing or cyanosis
NEURO: Gross non-focal
SKIN: No rash, warm, dry, pink
--- NOTE | 2025-07-17 11:43 | W.PN.HOSP.TC ---
Addendum entered and electronically signed by Benjamin Barber MD 07/17/25 13:51:
Non-ischemic myocardial injury due to CHF
Original Note:
Today's Communication/Plan
-
IV Lasix. Palliative care
Assessment / Plan
Assessment / Plan
Physical exam:
General: Acute on chronically ill
HEENT: Normocephalic, Atraumatic and Moist Mucous Membranes
Respiratory: Coarse crackles; Negative Wheezes or Rhonchi
Cardiac: Regular Rhythm and S1/S2, systolic murmur
GI: Soft, Nontender and Nondistended
Musculoskeletal: No Clubbing, No Cyanosis. Bilateral lower extremity edema
Neuro: Awake, Alert and Oriented, no neurological deficits
Psych: Calm
A/P:
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
Continue IV Lasix 40 mg daily
Cautious to avoid hypotension in the setting of
GDMT limited by hypotension. Not a candidate for SGLT2 due to recurrent UTIs
Cardiology consult appreciated
Echo done 04/2025 with LVEF = 40-45% and severe .
Patient has declined cardiac intervention such as cardiac cath and evaluation for aortic stenosis as well
Repeated labs today while she is on diuresis
PT OT eval
Discussed about palliative care eval and she is open to discussions. Palliative care consulted and I will be able to see her tomorrow
Orthostatic hypotension:
Monitor blood pressure
Consider midodrine if drops but hold off given heart failure
Anemia:
No signs of active bleeding
Hb 11.1 today
Continue to monitor closely
Chronic Hyponatremia:
Improving
Up to 132 today with diuresis
Continue to monitor
ASCVD Abnormal Troponin:
Due to demand mismatch ischemia
Paroxysmal Atrial Fibrillation:
Continue antiarrhythmic, amiodarone 200 mg p.o. daily
Continue anticoagulation, Eliquis 2.5 mg p.o. twice a day
DM-II:
Continue insulin sliding scale
Hgb A1C was 7% in 04/2025.
RLS/Anxiety / Depression:
Continue current medications including Requip and PRN Xanax.
History of recurrent UTI:
On suppressive antibiotics, methenamine 1 g p.o. twice a day
On lactobacillus
GERD:
On PPI
DVT Prophylaxis:
On Eliquis
Code Status:
DNR
Total time spent on today's encounter was 37 minutes which included time spent in counseling the patient/family regarding diagnosis and treatment plan as listed above, goals of care, and symptom management. Case was discussed with nursing staff,
specialists, and care coordinators/case management. All labs and imaging personally reviewed by me. Remainder the time spent in detailed review of previous records, lab data, imaging, and other medical provider documentation.
Anticipated Discharge: 24 - 48 hours
Subjective/Interval History
-
Date of Service: July 17, 2025
Patient feels less short of breath. No chest pain. Still feeling unwell
Objective Data
-
Labs:
Laboratory Results
07/17/25
05:45
WBC 5.8
Hgb 10.7 L
Hct 32.7 L
Plt Count 214
Sodium 129 L
Potassium 3.9
Chloride 99
Carbon Dioxide 26
BUN 24 H
Creatinine 0.8
Glucose 149 H
Calcium 9.0
Vital Signs:
Vital Signs
Temp Pulse Resp BP Pulse Ox
97.2 F 70 18 131/91 100
07/17/25 11:08 07/17/25 11:08 07/17/25 11:08 07/17/25 11:08 07/17/25 11:08
I&O
07/16/25 07/17/25 07/18/25
06:59 06:59 06:59
Intake Total 100 / 100
Output Total 500 / 500
Balance -400 / -400
[2025-07-17] MEDS: KCL 40 MEQ PO (12:17)
[2025-07-17 12:22] LABS: Glucose - Point of Care 175 mg/dl (70-99)
[2025-07-17] MEDS: NOVOLOG FLEXPEN-LOW RESISTANCE 1 UNITS SC ×2 (12:24→17:22)
--- NOTE | 2025-07-17 13:45 | PN.CDI ---
CDI
- -
CDI:
Physician Documentation Request
Admit Date: 07/15/25 02:25
Dear Doctor Elisabeth,
Please review the following and provide your response in the progress notes.
Clinical Indicators:
- Patient admit for acute heart failure
- 07/15 H&P 'Troponin elevation likely non-ischemic myocardial injury due to CHF'
- 07/17 PN 'Abnormal Troponin...Due to demand mismatch ischemia'
Laboratory Tests
07/14/25 07/15/25 07/15/25
23:59 04:00 15:25
Troponin I 0.045 H* 0.034 0.031
Please clarify the following regarding the documented elevated troponin:
Non-ischemic myocardial injury due to CHF
Type II [place] due to demand ischemia
Other (please specify)
Use of terms such as suspected, likely, concern for, or probable (associated with a specific diagnosis that is being evaluated, monitored, or treated as if it exists) are acceptable and can be coded in the inpatient setting, when documented at the
time of discharge.
Thank you,
Loly Price RN
CDI Specialist
Please use your independent medical judgment in providing your response.
[2025-07-17] MEDS: ZOSTRIX-HP 0.075% CREAM TOPICAL ×2 (13:57→17:09)
[2025-07-17] MEDS: TYLENOL 650 MG PO (16:24)
[2025-07-17] MEDS: REQUIP 0.5 MG PO (17:08)
[2025-07-17 17:12] LABS: Glucose - Point of Care 190 mg/dl (70-99)
--- NOTE | 2025-07-17 20:06 | W.PN.UPDATE ---
Update Note
Progress Note Update
UA appears positive for UTI, started on Ceftriaxone 1g IV Q24H until urine cultures resulted and s/s finalized.
[2025-07-17] MEDS: ROCEPHIN 1000 MG IV (20:09)
[2025-07-17] MEDS: STERILE WATER FOR INJECTION 10 ML IV (20:10)
[2025-07-17] MEDS: MELATONIN 5 MG PO (21:41)
[2025-07-17] MEDS: XANAX 0.25 MG PO (21:41)
[2025-07-17 22:04] LABS: Glucose - Point of Care 175 mg/dl (70-99)
[2025-07-18] VITALS (8 sets, daily range): BP systolic 101–138; BP diastolic 60–84; O2SAT 96; BMI 19.7
--- NOTE | 2025-07-18 02:18 | DOWNTIME ---
There was a [facility] Client Art Critic Downtime on 07/18/2025 from 0100 to 07/18/2025 at 0215. Downtime documentation of patient's care, including medication administrations, has been reconciled in the electronic record per guidelines. Refer to the
patient's paper chart under the miscellaneous tab to see printed paper medication records and downtime forms.
[2025-07-18 07:38] LABS: Glucose - Point of Care 162 mg/dl (70-99)
[2025-07-18] MEDS: VISBIOME 1 CAP PO (08:08)
[2025-07-18] MEDS: PROTONIX 40 MG PO (08:08)
[2025-07-18] MEDS: ZOSTRIX-HP 0.075% CREAM 1 APPLIC TOPICAL (08:09)
[2025-07-18] MEDS: PACERONE 200 MG PO (08:09)
[2025-07-18] MEDS: ELIQUIS 2.5 MG PO ×2 (08:09→20:24)
[2025-07-18] MEDS: HIPREX 1 GRAM PO ×2 (08:09→20:24)
[2025-07-18] MEDS: NOVOLOG FLEXPEN-LOW RESISTANCE 1 UNITS SC ×2 (08:10→17:16)
[2025-07-18] MEDS: XANAX 0.25 MG PO ×2 (08:11→20:27)
[2025-07-18] MEDS: LASIX 40 MG IV (08:12)
[2025-07-18] MEDS: MIRALAX 17 GRAMS PO (08:13)
[2025-07-18 08:35] LABS: Hematocrit 35.2 % (37.0-47.0); Hemoglobin 11.2 g/dL (12.0-16.0)
--- NOTE | 2025-07-18 08:40 | W.PN.HOSP.TC ---
Today's Communication/Plan
-
IV Lasix. IV antibiotic. Discharge planning
Assessment / Plan
Assessment / Plan
Physical exam:
General: Acute on chronically ill
HEENT: Normocephalic, Atraumatic and Moist Mucous Membranes
Respiratory: Coarse crackles; Negative Wheezes or Rhonchi
Cardiac: Regular Rhythm and S1/S2, systolic murmur
GI: Soft, Nontender and Nondistended
Musculoskeletal: No Clubbing, No Cyanosis. Bilateral lower extremity edema
Neuro: Awake, Alert and Oriented, no neurological deficits
Psych: Calm
A/P:
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
Continue IV Lasix 40 mg daily
Cautious to avoid hypotension in the setting of
GDMT limited by hypotension. Not a candidate for SGLT2 due to recurrent UTIs
Cardiology consult appreciated
Echo done 04/2025 with LVEF = 40-45% and severe .
Patient has declined cardiac intervention such as cardiac cath and evaluation for aortic stenosis as well
Repeated labs today while she is on diuresis
PT OT eval
Palliative care consult today appreciated-discussed with palliative care and will review after upload note
Discussed with mechanical engineering specialist today recommend continue IV diuresis today and possibly discharge on oral diuretics tomorrow
History of recurrent UTI and possible another UTI:
Started on IV Rocephin
Urine culture growing E. coli
Will adjust antibiotics depending on sensitivity
On suppressive antibiotics, methenamine 1 g p.o. twice a day
On lactobacillus
Orthostatic hypotension:
Monitor blood pressure
Consider midodrine if drops but hold off given heart failure
Anemia:
No signs of active bleeding
Hb 11.2 today
Continue to monitor closely
Chronic Hyponatremia:
Improving
Up to 135 today with diuresis
Continue to monitor
ASCVD Abnormal Troponin:
Due to demand mismatch ischemia
Paroxysmal Atrial Fibrillation:
Continue antiarrhythmic, amiodarone 200 mg p.o. daily
Continue anticoagulation, Eliquis 2.5 mg p.o. twice a day
DM-II:
Continue insulin sliding scale
Hgb A1C was 7% in 04/2025.
RLS/Anxiety / Depression:
Continue current medications including Requip and PRN Xanax.
GERD:
On PPI
DVT Prophylaxis:
On Eliquis
Code Status:
DNR
Total time spent on today's encounter was 52 minutes which included time spent in counseling the patient/family regarding diagnosis and treatment plan as listed above, goals of care, and symptom management. Case was discussed with nursing staff,
specialists, and care coordinators/case management. All labs and imaging personally reviewed by me. Remainder the time spent in detailed review of previous records, lab data, imaging, and other medical provider documentation.
Anticipated Discharge: Within 24 hours
Subjective/Interval History
-
Date of Service: July 18, 2025
Patient feels better overall. Less shortness of breath. No chest pain. Afebrile
Objective Data
-
Labs:
Laboratory Results
07/18/25
07:57
Hgb 11.2 L
Hct 35.2 L
Sodium Pending
Potassium Pending
Chloride Pending
Carbon Dioxide Pending
BUN Pending
Creatinine Pending
Glucose Pending
Calcium Pending
Vital Signs:
Vital Signs
Temp Pulse Resp BP Pulse Ox
98.0 F 65 18 101/61 98
07/18/25 03:11 07/18/25 03:11 07/18/25 03:11 07/18/25 03:11 07/18/25 03:11
I&O
07/17/25 07/18/25 07/19/25
06:59 06:59 06:59
Intake Total 100 / 100 1320 / 1320
Output Total 500 / 500 575 / 575
Balance -400 / -400 745 / 745
[2025-07-18 09:00] LABS: Blood Urea Nitrogen 21 mg/dl (7-17); Calcium 9.2 mg/dl (8.4-10.2); Carbon Dioxide 24 mmol/L (22-30); Chloride 101 mmol/L (98-107); Estimated Creatinine Clearance 44 ml/min; Glucose 162 mg/dl (70-99); Potassium 4.7 mmol/L (3.5-5.1); Sodium 135 mmol/L (135-145); eGFR > 60.00
--- NOTE | 2025-07-18 09:12 | W.PN.CARDCBS ---
Today's Communication / Plan
-
Continue with gentle diuresis in setting of severe . Continue Lasix 40 mg IV daily.
Her wt is coming down and close to d/c wt from May 2025.
Possible transition to oral lasix next 24 hrs. She is very enthusiastic about discharge
Cont to monitor daily wt, I&O.
Cr remains stable.
Hypotension has limited up titration of GDMT in past.
Did not tolerate Toprol or DAVID inhibitor in the past due to hypotension.
She is not candidate for SGLT2 due to history of UTIs.
Cont to monitor bp.
She was previously on midodrine for BP support but has not required this.
Remains in sinus rhythm.
Continue amiodarone and Eliquis.
H/H stable.
Defer tx of UTI to primary service.
Her long-term prognosis is very poor.
Discussed palliative care and hospice with her.
Impression / Plan
-
.
Primary Ecommerce Analyst: Dr. Funes
Impression:
Presented 07/14/25 shortness of breath, weight gain, fatigue, and orthopnea
Acute on chronic heart failure mildly reduced EF, proBNP 46877
Severe aortic stenosis
Hyponatremia
UTI
Elevated troponin, peak 0.045
Paroxysmal atrial fibrillation
CM EF 40-45% Apr 2024
Abnormal stress test, patient has declined cardiac catheterization on multiple occasions as OP
h/o multiple ischemic strokes which have been felt likely to represent small vessel disease and atherosclerosis
Autonomic dysfunction/hypotension/orthostasis treated with midodrine as needed
Carotid stenosis, right s/p stent
Hypercholesterolemia
Type 2 diabetes with diabetic neuropathy
History of seizure disorder
Breast Ca with Radiation Therapy s/p Left Mastectomy
GERD/Hiatal Hernia
RLS
UTIs
Iron Deficiency
Congenital malformation of esophagus
Gait difficulty
Dysphagia
Former smoker
PSH: Hysterectomy /History of bowel resection/ Back surgery
Echo 05/15/2024: EF 40 to 45%, global hypokinesis, stage II diastolic dysfunction, MAC, mild MR, mild to moderate with peak/mean gradients 27/18 mmHg, KAYLEIGH 1.4 cm�, trace AR
ECHO 05/25/2024: EF 40 to 45%, apex, inferolateral, inferior and anterior perez are hypokinetic, appears stable compared to prior.
Echo 09/08/2024: EF 40-45%, inferior, inferolateral, anterior, and apical hypokinesis. Mild MS, MAC, mild MR, moderate to severe (57/32 mmHg), mild to moderate TR, mild pulmonary hypertension PASP 43 mmHg
Echo 05/23/2025: LVEF 40 to 45%, normal RV size and function, severe , KAYLEIGH 0.6 cm�, peak and mean AV gradients of 46 and 27 mmHg, mild MS, mild MR, mild TR, PAP 45 mmHg
Plan:
Continue with gentle diuresis in setting of severe . Continue Lasix 40 mg IV daily.
Her wt is coming down and close to d/c wt from May 2025. She is very enthusiastic about discharge
Possible transition to oral lasix next 24 hrs
Cont to monitor daily wt, I&O.
Cr remains stable.
Hypotension has limited up titration of GDMT in past.
Did not tolerate Toprol or DAVID inhibitor in the past due to hypotension.
She is not candidate for SGLT2 due to history of UTIs.
Cont to monitor bp.
She was previously on midodrine for BP support but has not required this.
Remains in sinus rhythm.
Continue amiodarone and Eliquis.
H/H stable.
Defer tx of UTI to primary service.
Her long-term prognosis is very poor. Discussed palliative care and hospice with her.
She was seen by palliative care
She is DNR
-She has declined interventions including cardiac cath and evaluation for her severe aortic stenosis.
Discussed with primary service.
HPI: 89-year-old female well-known to our service recently discharged from the hospital June 16, 2025 with acute on chronic heart failure with mildly reduced ejection fraction and severe aortic stenosis returns with more shortness of breath,
weight gain, fatigue, and orthopnea. The patient lives at home with her daughter. She has had increased fatigue and symptoms for the past 3 to 4 days. She denies any lower extremity edema but does have abdominal fullness. Her baseline weight is
around 133 her weight today was up to 140 pounds. She denies any dietary indiscretion. She has no chest pains. She has no palpitations or syncope. She has no bleeding or falls. Her energy is slowly declining and feeding. She is DNR. She has
declined cardiac cath and evaluation for her aortic stenosis in the past.
Progress Note - Ecommerce Analyst
Subjective
Date of Service: July 18, 2025
Pt seen and examined. No complaints. No chest pain or shortness of breath.
Objective
Labs:
07/18/25 07:57
07/18/25 07:57
Labs
Hgb 11.2 g/dL (12.0-16.0) L 07/18/25 07:57
Hct 35.2 % (37.0-47.0) L 07/18/25 07:57
Plt Count 214 10^3/uL (130-400) 07/17/25 05:45
Sodium 135 mmol/L (135-145) 07/18/25 07:57
Potassium 4.7 mmol/L (3.5-5.1) 07/18/25 07:57
BUN 21 mg/dl (7-17) H 07/18/25 07:57
Creatinine 0.8 mg/dL (0.6-1.0) 07/18/25 07:57
Glucose 162 mg/dl (70-99) H 07/18/25 07:57
Troponins
07/15/25 07/15/25
09:46 15:25
Troponin I Cancelled 0.031
Vital Signs and I&O:
Vital Signs
Temp Pulse Resp BP Pulse Ox
98.0 F 65 18 101/61 98
07/18/25 03:11 07/18/25 03:11 07/18/25 03:11 07/18/25 03:11 07/18/25 03:11
Vital Signs
Temp Pulse Resp BP Pulse Ox
98.0 F 65 18 101/61 98
07/18/25 03:11 07/18/25 03:11 07/18/25 03:11 07/18/25 03:11 07/18/25 03:11
Intake & Output
07/16/25 07/17/25 07/18/25 07/19/25
06:59 06:59 06:59 06:59
Intake Total 100 / 100 1320 / 1320
Output Total 500 / 500 575 / 575
Balance -400 / -400 745 / 745
Physical Exam
Physical Exam
General: No acute distress, AAOX3
Neck: Negative JVD
Heart: Regular, Negative S3 positive S1/S2, Negative S4, MYNOR grade II/
Lungs: CTA b/l, negative wheezes/rales/rhonchi
Abd: Positive BS, NT/ND, neg rebound/rigidity/guarding
Ext: Negative cyanosis/clubbing/edema
Neuro: nonfocal
--- NOTE | 2025-07-18 11:50 | CM ---
A referral was sent to [facility] for possible skilled placement and patient was accepted at [facility], patient will need Auth for skilled placement. Palliative care physician was in to see patient today.
[facility]
Dr Kulkarni
Plan; Skilled placement at [facility] , will need Auth, and COVID testing prior to discharge.
[2025-07-18 12:08] LABS: Glucose - Point of Care 293 mg/dl (70-99)
[2025-07-18] MEDS: ZOSTRIX-HP 0.075% CREAM TOPICAL ×3 (12:45→21:09)
[2025-07-18] MEDS: NOVOLOG FLEXPEN-LOW RESISTANCE 3 UNITS SC (12:45)
--- NOTE | 2025-07-18 14:12 | W.CON.PAL ---
Consultation
-
Date/Time Consultation Requested: 07/17/25
Date/Time Consultation Performed: 07/18/25
Requesting Provider: Elisabeth Alexander MD
Performing Provider: Amy Jones MD
Reason for Consult: Goals of Care Discussion
Primary Diagnosis: Acute decompensated heart failure
Consult Requested By: Patient's Family and Patient's Physician
Reason for Admission
Illness Course/HPI
89 YO F with extensive cardiac and neuro hx with severe and multiple vascular events as well as recurrent UTI and recent hospitalization who was brought in by EMS from [facility] in [place] for respite stay ( where she had been for about 2
weeks as daughter who she lives with was on vacation). Pt shares that her decline has been progressive ' since she had the stroke' but was still fairly functional at home.
Since admission she has deconditioned and was seen by PT with recommendations for rehab on dc.
Cardiolgy and Pt hospitalist had requested Palliative consult on account of her severe with continued burdensome symptoms, on this admission she has had issues with hypotension and is continued on diuresis to help alleviate her symptom of dyspnea
from the fluid overload, Pt has declined cardiac cath and evaluation for her aortic stenosis in the past as per her cardiologists who have followed her even in out-patient setting.
Functional Status
Pt prior to admission lived with daughter, she stated it is a [address] but she had a mostly first floor setup but was still able to go up the stairs occasionally with assistance, she has a walker and a wheel chair which she did not use, sghe
had a shower chair and shower rails in shower upstairs, daughter assisted to get her in and out of tub but patient would then help herself, she did her grooming, transfered with assistance, fed herself, managed her finances with daughter's help,
daughter did grocery shopping, housework and managed medications. She stated she has had no falls in last 4 months but noted she has to go slowly, she had been dc to rehab twice .
Goals of Care Discussion
-
Individuals Present for Discussion & Relationship to Patient:
Pt and Palliative care physician.
Patient able to participate in discussion at time of visit: Yes
Patient's Information Preferences: Fully Involved/Able to Participate
Patient Goals
Pt shared she has a POA document which lists daughter Parvin as HCP, she understands that she is sick, she however shared that ' She does not want to face fact that she was dying', I explained her clinical condition with the severe and
explained that her symptoms are from the heart failure, she is clear regarding not wanting heroic measures like CPR, intubation, HD, or feeding tube but when asked regarding what her goals are with limitations to treatment she stated that : she is
not ready for hospice', for her quality of life is ' just to be able to get around', she understands that she has deconditioned but is hoping she can get better to be able to return to the things she did before admission but understands that might
not happen with her continued disease. Palliative care was explained to her as an extra level of support to help with care-coordination, referral for more services in home and support with management of symptoms, more support in home etc but she is
not sure she wants to add another service at this time
Pain & Symptom Assessment
Patient Symptoms
Patient Symptoms: Pain, Dyspnea, Anxiety, Insomnia and Fatigue
[place] Symptom Scale 0=none, 10=worst
Pain: 2
Tired: 0
Drowsy: 2
Nausea: 0
Appetite: 0
Shortness of Breath: 2
Depressed: 0
Anxiety: 5 (on account of the functional decline)
Objective Data
-
Objective Data:
Vital Signs
Temp Pulse Resp BP Pulse Ox
97.1 F 75 16 136/69 95
07/18/25 11:09 07/18/25 11:09 07/18/25 11:09 07/18/25 11:09 07/18/25 11:09
Laboratory Results
07/18/25 07:57
07/18/25 07:57
Total Protein 7.3 g/dl (6.3-8.2) 07/14/25 23:59
Albumin 4.2 g/dl (3.5-5.0) 07/14/25 23:59
Urine Color Yellow 07/17/25 06:26
Urine Clarity Slightly cloudy (Clear) 07/17/25 06:26
Urine pH 6.5 (5.0-9.0) 07/17/25 06:26
Ur Specific [place] 1.020 (<1.030) 07/17/25 06:26
Urine Ketones Negative (Negative) 07/17/25 06:26
Urine Bilirubin Negative (Negative) 07/17/25 06:26
Palliative Performance Scale
Palliative Performance Scale:
PPS Level Ambulation Activity & Evidence of Disease Self Care Intake Conscious Level
100% Full Normal Activity & Work; Full Intake Full
No Evidence of Disease
90% Full Normal Activity & Work; Full Normal Full
Some Evidence of Disease
80% Full Normal Activity with Effort Full Normal or Full
Some Evidence of Disease Reduced
70% Reduced Unable Normal Job/Work Full Normal or Full
Significant Disease Reduced
60% Reduced Unable Hobby/Housework Occasional Normal or Full or Confusion
Significant Disease Assistance Reduced
50% Mainly Sit/Lie Unable to do Any Work Considerable Normal or Full or Confusion
Extensive Disease Assistance Req'd Reduced
40% Mainly in Bed Unable to do Most Activity Mainly Assistance Normal or Full or Drowsy;
Extensive Disease Reduced +/- Confusion
30% Totally Bed Unable to do Any Activity Total Care Normal or Full or Drowsy;
Bound Extensive Disease Reduced +/- Confusion
20% Totally Bed Bound Unable to do Any Activity Total Care Minimal to Full or Drowsy;
Extensive Disease Sips +/- Confusion
10% Totally Bed Bound Unable to do Any Activity Total Care Mouth Care Drowsy or Coma;
Extensive Disease Only +/- Confusion
0%
PPS Score Level:
Palliative Performance Score Response
Palliative Performance Score Response: 50%
Physical Exam
-
General: No Apparent Distress and Conversant
HEENT: Normocephalic, Atraumatic and Moist Mucous Membranes
Respiratory: Clear to Auscultation and Rales
Cardiac: S1/S2 and Murmur
Peripheral Vascular: No Edema (nil pedal edema)
GI: Soft and Nontender
Skin: Warm and Dry
Neuro: Awake, Alert and Oriented
Psych: Calm
Assessment / Plan
-
Assessment/Plan:
89 YO F with severe and on admission presently with decompensated HF who is seen to discuss goals of care.
Pt understands that she is sick, she grieves her loss of function and understands this is from her failing heart, she however would not want to get any procedures like cardiac cath, she however shared that ' She does not want to face fact that she
was dying', she is clear regarding not wanting heroic measures like CPR, intubation, HD, or feeding tube but would not set any further limitations to treatment, goal at this time appears indeterminate as pt shared several times she wants to be
comfortable but at this time is treatment focused as long as not invasive.
Daughter was called after visit and packet with resource materials regarding our palliative care program here at [facility] was provided.
Care Reviewed
Data Reviewed
Medical Tests: I reviewed
Reviewed with: Patient, Family, Physician and Nurse
[2025-07-18 16:35] LABS: Glucose - Point of Care 183 mg/dl (70-99)
[2025-07-18] MEDS: REQUIP 0.5 MG PO (17:15)
[2025-07-18] MEDS: ROCEPHIN 1000 MG IV (20:24)
[2025-07-18] MEDS: STERILE WATER FOR INJECTION 10 ML IV (20:25)
[2025-07-18] MEDS: MELATONIN 5 MG PO (20:30)
[2025-07-18 21:47] LABS: Glucose - Point of Care 284 mg/dl (70-99)
[2025-07-19 03:13] VITALS: BP 129/62
[2025-07-19 05:15] VITALS: BMI 19.7
[2025-07-19 07:33] LABS: Glucose - Point of Care 192 mg/dl (70-99)
[2025-07-19 08:12] VITALS: BP 151/63
[2025-07-19] MEDS: VISBIOME 1 CAP PO (08:18)
[2025-07-19] MEDS: PROTONIX 40 MG PO (08:20)
[2025-07-19] MEDS: PACERONE 200 MG PO (08:20)
--- NOTE | 2025-07-19 08:22 | W.PN.CARDCBS ---
Today's Communication / Plan
-
Transition to oral lasix 60 mg daily
Check BMP one week
outpt follow up arranged
Impression / Plan
-
.
Primary Concrete Finishing Machine Operator: Dr. Funes
Impression:
Presented 07/14/25 shortness of breath, weight gain, fatigue, and orthopnea
Acute on chronic heart failure mildly reduced EF, proBNP 30069
Severe aortic stenosis
Hyponatremia
UTI
Elevated troponin, peak 0.045
Paroxysmal atrial fibrillation
CM EF 40-45% Apr 2024
Abnormal stress test, patient has declined cardiac catheterization on multiple occasions as OP
h/o multiple ischemic strokes which have been felt likely to represent small vessel disease and atherosclerosis
Autonomic dysfunction/hypotension/orthostasis treated with midodrine as needed
Carotid stenosis, right s/p stent
Hypercholesterolemia
Type 2 diabetes with diabetic neuropathy
History of seizure disorder
Breast Ca with Radiation Therapy s/p Left Mastectomy
GERD/Hiatal Hernia
RLS
UTIs
Iron Deficiency
Congenital malformation of esophagus
Gait difficulty
Dysphagia
Former smoker
PSH: Hysterectomy /History of bowel resection/ Back surgery
Echo 05/15/2024: EF 40 to 45%, global hypokinesis, stage II diastolic dysfunction, MAC, mild MR, mild to moderate with peak/mean gradients 27/18 mmHg, KAYLEIGH 1.4 cm�, trace AR
ECHO 05/25/2024: EF 40 to 45%, apex, inferolateral, inferior and anterior perez are hypokinetic, appears stable compared to prior.
Echo 09/08/2024: EF 40-45%, inferior, inferolateral, anterior, and apical hypokinesis. Mild MS, MAC, mild MR, moderate to severe (57/32 mmHg), mild to moderate TR, mild pulmonary hypertension PASP 43 mmHg
Echo 05/23/2025: LVEF 40 to 45%, normal RV size and function, severe , KAYLEIGH 0.6 cm�, peak and mean AV gradients of 46 and 27 mmHg, mild MS, mild MR, mild TR, PAP 45 mmHg
Plan:
Her wt is flat and she is adamant about discharge.
Transition to oral lasix 60 mg daily. Check BMP one week
Unfortunately with her she is high risk for recurrent admit for HF and this was reviewed.
Hospice and palliative care were discussed with pt.
Hypotension has limited up titration of GDMT in past.
Did not tolerate Toprol or DAVID inhibitor in the past due to hypotension.
She is not candidate for SGLT2 due to history of UTIs.
Bp stable. She was previously on midodrine for BP support but has not required this.
Remains in sinus rhythm. Continue amiodarone and Eliquis.
H/H stable.
Her long-term prognosis is very poor. Discussed palliative care and hospice with her.
She was seen by palliative care
She is DNR
-She has declined interventions including cardiac cath and evaluation for her severe aortic stenosis.
UTI tx per primary service
Outpt cardiac follow up arranged.
Discussed with nursing.
HPI: 89-year-old female well-known to our service recently discharged from the hospital June 16, 2025 with acute on chronic heart failure with mildly reduced ejection fraction and severe aortic stenosis returns with more shortness of breath,
weight gain, fatigue, and orthopnea. The patient lives at home with her daughter. She has had increased fatigue and symptoms for the past 3 to 4 days. She denies any lower extremity edema but does have abdominal fullness. Her baseline weight is
around 133 her weight today was up to 140 pounds. She denies any dietary indiscretion. She has no chest pains. She has no palpitations or syncope. She has no bleeding or falls. Her energy is slowly declining and feeding. She is DNR. She has
declined cardiac cath and evaluation for her aortic stenosis in the past.
Progress Note - Concrete Finishing Machine Operator
Subjective
Date of Service: July 19, 2025
Pt seen and examined. No complaints. No chest pain or shortness of breath.
Objective
Labs:
Labs
Hgb 11.2 g/dL (12.0-16.0) L 07/18/25 07:57
Hct 35.2 % (37.0-47.0) L 07/18/25 07:57
Plt Count 214 10^3/uL (130-400) 07/17/25 05:45
Sodium 135 mmol/L (135-145) 07/18/25 07:57
Potassium 4.7 mmol/L (3.5-5.1) 07/18/25 07:57
BUN 21 mg/dl (7-17) H 07/18/25 07:57
Creatinine 0.8 mg/dL (0.6-1.0) 07/18/25 07:57
Glucose 162 mg/dl (70-99) H 07/18/25 07:57
Vital Signs and I&O:
Vital Signs
Temp Pulse Resp BP Pulse Ox
97.9 F 85 20 151/63 90
07/19/25 08:12 07/19/25 08:12 07/19/25 08:12 07/19/25 08:12 07/19/25 08:12
Vital Signs
Temp Pulse Resp BP Pulse Ox
97.9 F 85 20 151/63 90
07/19/25 08:12 07/19/25 08:12 07/19/25 08:12 07/19/25 08:12 07/19/25 08:12
Intake & Output
07/17/25 07/18/25 07/19/25 07/20/25
06:59 06:59 06:59 06:59
Intake Total 100 / 100 1320 / 1320 420 / 420
Output Total 500 / 500 575 / 575
Balance -400 / -400 745 / 745 420 / 420
Physical Exam
Physical Exam
General: No acute distress, AAOX3
Neck: Negative JVD
Heart: Regular, Negative S3 positive S1/S2, Negative S4, MYNOR grade II/
Lungs: CTA b/l, negative wheezes/rales/rhonchi
Abd: Positive BS, NT/ND, neg rebound/rigidity/guarding
Ext: Negative cyanosis/clubbing/edema
Neuro: nonfocal
[2025-07-19] MEDS: ELIQUIS 2.5 MG PO (08:23)
[2025-07-19] MEDS: LASIX 40 MG IV (08:23)
[2025-07-19] MEDS: NOVOLOG FLEXPEN-LOW RESISTANCE 1 UNITS SC (08:24)
[2025-07-19] MEDS: MIRALAX 17 GRAMS PO (08:25)
[2025-07-19] MEDS: ZOSTRIX-HP 0.075% CREAM 1 APPLIC TOPICAL (08:26)
[2025-07-19] MEDS: FLUSH (NSS) 1 FLUSH IV (08:29)
[2025-07-19] MEDS: HIPREX 1 GRAM PO (08:34)
[2025-07-19 08:37] LABS: Hematocrit 36.2 % (37.0-47.0); Hemoglobin 11.6 g/dL (12.0-16.0); Mean Corp Hgb Conc. 32.0 g/dL (33.0-37.0); Mean Corpuscular Volume 95.5 fL (81.0-99.0); Nucleated Red Blood Cells % 0 %; Platelet Count 254 10^3/uL (130-400); Red Cell Dist. Width 15.6 % (11.5-14.5)
[2025-07-19 09:20] LABS: Blood Urea Nitrogen 25 mg/dl (7-17); Calcium 9.8 mg/dl (8.4-10.2); Carbon Dioxide 25 mmol/L (22-30); Chloride 99 mmol/L (98-107); Estimated Creatinine Clearance 44 ml/min; Glucose 191 mg/dl (70-99); Potassium 4.4 mmol/L (3.5-5.1); Sodium 132 mmol/L (135-145); eGFR > 60.00
[2025-07-19] MEDS: XANAX 0.25 MG PO (10:44)
[2025-07-19] MEDS: TYLENOL 650 MG PO (10:44)
[2025-07-19 10:46] VITALS: BP 111/50
--- NOTE | 2025-07-19 10:57 | CM ---
Addendum entered by Nieves Morton 07/19/25 13:30:
Patient has been approved for 5 days skilled Auth [id number], 07/19 to 07/23, NRD 07/23, daughter to transport today at 5pm, IMM completed and placed on chart, need COVID testing completed.
[facility]
Report [phone]

Original Note:
Per physician patient is stable for discharge today, patient has been accepted at [facility], will need Auth, and COVID testing prior to discharge, physician and nursing aware.
Plan; Skilled placement at [facility] today.
--- NOTE | 2025-07-19 11:09 | W.PN.HOSP.TC ---
Today's Communication/Plan
-
Discharge planning today
Assessment / Plan
Assessment / Plan
Physical exam:
General: Chronically ill
HEENT: Normocephalic, Atraumatic and Moist Mucous Membranes
Respiratory: Clear to auscultation bilaterally; Negative Wheezes or Rhonchi
Cardiac: Regular Rhythm and S1/S2, systolic murmur
GI: Soft, Nontender and Nondistended
Musculoskeletal: No Clubbing, No Cyanosis. Left bilateral lower extremity edema
Neuro: Awake, Alert and Oriented, no neurological deficits
Psych: Calm
A/P:
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
Continue IV Lasix 40 mg daily and switch to oral Lasix 60 mg p.o. daily
Cautious to avoid hypotension in the setting of
GDMT limited by hypotension. Not a candidate for SGLT2 due to recurrent UTIs
Cardiology consult appreciated
Echo done 04/2025 with LVEF = 40-45% and severe .
Patient has declined cardiac intervention such as cardiac cath and evaluation for aortic stenosis as well
Repeated labs today while she is on diuresis
PT OT eval
Palliative care consult and appreciated
Discussed with renewals specialist today recommend patient can be discharged today.
History of recurrent UTI and possible another UTI:
Started on IV Rocephin and can switch to Bactrim for 3 more days
Urine culture growing E. coli
On suppressive antibiotics, methenamine 1 g p.o. twice a day--> hold and resume after finishing Bactrim.
On lactobacillus
Constipation:
Start senna
Orthostatic hypotension:
Monitor blood pressure
Consider midodrine if drops but hold off given heart failure
Anemia:
No signs of active bleeding
Hb 11.6 today
Continue to monitor closely
Chronic Hyponatremia:
Improving
Up to 132 today with diuresis
Continue to monitor
ASCVD Abnormal Troponin:
Due to demand mismatch ischemia
Paroxysmal Atrial Fibrillation:
Continue antiarrhythmic, amiodarone 200 mg p.o. daily
Continue anticoagulation, Eliquis 2.5 mg p.o. twice a day
DM-II:
Continue insulin sliding scale
Hgb A1C was 7% in 04/2025.
RLS/Anxiety / Depression:
Continue current medications including Requip and PRN Xanax.
GERD:
On PPI
DVT Prophylaxis:
On Eliquis
Code Status:
DNR
Anticipated Discharge: Today
Subjective/Interval History
-
Date of Service: July 19, 2025
Patient feels well. Less shortness of breath. Constipation.
Objective Data
-
Labs:
Laboratory Results
07/19/25
07:23
WBC 6.5
Hgb 11.6 L
Hct 36.2 L
Plt Count 254
Sodium 132 L
Potassium 4.4
Chloride 99
Carbon Dioxide 25
BUN 25 H
Creatinine 0.8
Glucose 191 H
Calcium 9.8
Vital Signs:
Vital Signs
Temp Pulse Resp BP Pulse Ox
97.9 F 85 20 151/63 90
07/19/25 08:12 07/19/25 08:12 07/19/25 08:12 07/19/25 08:12 07/19/25 08:12
I&O
07/18/25 07/19/25 07/20/25
06:59 06:59 06:59
Intake Total 1320 / 1320 420 / 420
Output Total 575 / 575
Balance 745 / 745 420 / 420
[2025-07-19 11:25] VITALS: BP 147/71
--- NOTE | 2025-07-19 11:26 | W.DCSUMMARY ---
Discharge Summary
Discharge Data
Date of Admission: 07/15/25
Date of Discharge: 07/19/25
Total time spent discharging patient (in min): 38
-
Pending Results: No
Hospital Course
Patient 89 years old female with history of severe , paroxysmal A-fib, chronic systolic congestive heart failure, hyponatremia, multiple ischemic strokes, autonomic dysfunction with hypotension and orthostasis, diabetes mellitus, seizure disorder,
GERD, hiatal hernia, peripheral vascular disease with carotid stenosis and stents in the past, hyperlipidemia, recurrent UTIs, breast cancer with radiation therapy and left mastectomy, restless leg syndrome, chronic iron deficiency anemia, presented
to the hospital with another episode of exacerbation of congestive heart failure. Cardiology consulted. Unable to tolerate complete GDMT due to hypotension and recurrent UTIs. Patient was aggressively diuresed intravenously. Her weight went down
to close to her dry weight back in May 2025. Her creatinine remained stable with diuresis. She had negative balance throughout her hospital stay. She was also On antiarrhythmic and anticoagulation for A-fib and has remained in sinus rhythm.
It was noted that patient does portend very poor prognosis and she had declined cardiac intervention such as cardiac catheterization or aortic valve replacement so we also discussed palliative care evaluation. She still does not want any further
cardiac intervention. Palliative care saw the patient and discussed with patient and family and at this time she wanted to pursue medical treatment but not invasive and remains DNR. She also would like to follow-up with palliative care as
outpatient. She appears to be a hospice candidate but she wants to think about that and needs more time. Course also complicated with a recurrent urinary tract infection. She grew E. coli in her urine cultures and she was treated with IV Rocephin
and we are planning to switch to oral Bactrim for a few more days as outpatient. She has remained afebrile and normal white blood cell count. She has been accepted for rehab. Patient is very eager to go today. I discussed with cardiology in
person today and Dr. Aragon cleared her for discharge today. She will be transition to oral Lasix today as well.
Discharge duration: 38 minutes
Discharge Plan
-
Patient Disposition: Halfway/SNF
Discharge Diagnosis/Procedures: Acute on chronic systolic congestive heart failure. Severe aortic stenosis. Urinary tract infection. Orthostatic hypotension. Anemia. Hyponatremia.
Diet: Low Cholesterol, 2 Gram Sodium, Diabetic, Carb Controlled and Restrict fluids to 48 oz
Activity: As tolerated
Blood Work: Please PCP to order CBC, BMP within 1 week
Specialty Instructions: Weigh Daily- Call MD for wt gain/loss 3 lbs overnight/5 lbs in 1 week
Instructions: *DCA Heart Failure Instructions
Referrals:
Abiel Toth, [Family Provider] - in less than 1 week
Amy Jones MD [Active, Palliative Care] - in two to three weeks
Radha Oro CRNP [Specified Professional Personl, Cardiology] - 07/26/25 9:40 am
Referral Note: You have cardiology follow-up with Radha Oro nurse practitioner for Dr. Funes on 07/26/2025 at 9:40 AM in [address] [place]. If you are unable to make this appointment please call [phone] to reschedule
Prescriptions:
New
furosemide [Lasix] 40 mg tablet
60 mg PO DAILY Qty: 30 0RF
sulfamethoxazole-trimethoprim [Bactrim DS] 800-160 mg tablet
1 tab PO BID 3 Days Qty: 6 0RF
Rx Instructions:
for 3 days until 07/22/25
senna 8.6 mg capsule
8.6 mg PO BID Qty: 20 0RF
Continued
PreserVision AREDS 1 CAP capsule
1 cap PO BID
ropinirole 0.5 mg Tablet
0.5 mg PO HS
cyanocobalamin (vitamin B-12) 1,000 mcg Tablet
1,000 mcg PO DAILY
ascorbic acid (vitamin C) [Vitamin C] 500 mg Tablet
500 mg PO DAILY
cholecalciferol (vitamin D3) [Vitamin D3] 25 mcg (1,000 unit) Tablet
25 mcg PO DAILY
melatonin 5 mg Tablet
5 mg PO HS
lidocaine 4 % adhesive patch,medicated
1 patch topical HS
polyethylene glycol 3350 [Miralax] 17 gram Powder In Packet
17 g PO DAILY
amiodarone 200 mg tablet
200 mg PO DAILY
capsaicin [Arthritis Pain Relief(capsaic)] 0.075 % cream
1 applic topical QID
pantoprazole 40 mg tablet,delayed release (DR/EC)
40 mg PO DAILY
Eliquis 2.5 mg tablet
2.5 mg PO BID
acetaminophen 325 MG tablet
650 mg PO Q6HPRN PRN (Reason: pain) Qty: 0 0RF
ipratropium-albuterol 0.5 mg-3 mg(2.5 mg base)/3 mL Solution For Nebulization
3 ml inhalation R Q4HPRN PRN (Reason: Shortness of breath/wheeze) Qty: 90 0RF
metformin 500 mg tablet
500 mg PO DAILY
Discontinued
alprazolam 0.5 mg Tablet
0.25 mg PO BIDPRN PRN (Reason: Anxiety) Qty: 6 0RF
furosemide 20 mg tablet
40 mg PO DAILY Qty: 60 0RF
No Action
alprazolam [Xanax] 0.5 mg Tablet
0.5 mg PO [id number] PRN (Reason: anxiety)
methenamine hippurate [Hiprex] 1 gram Tablet
1 g PO BID
magnesium hydroxide [Milk of Magnesia] 400 mg/5 mL Suspension
2,400 mg PO [id number] PRN (Reason: constipation)
bisacodyl [Dulcolax (bisacodyl)] 10 mg Suppository
10 mg MD DAILYPRN PRN (Reason: if no bm aftr mom)
Fleet Enema 19-7 gram/118 mL Enema
118 ml MD DAILYPRN PRN (Reason: if no bm aftr dulcolax)
Saccharomyces boulardii [Florastor] 250 mg Capsule
250 mg PO DAILY
magnesium oxide 400 mg magnesium Tablet
400 mg PO BID
zinc oxide 20 % Paste
1 ea TOPICAL BID
Discharge Orders:
Discharge Patient (As Directed); Ordered 07/19/25
Ordered By: Benjamin Barber
Discharge Date and Time
Discharge Date/Time: 07/19/25 17:21
Print Language: YI
[2025-07-19 11:46] LABS: Glucose - Point of Care 240 mg/dl (70-99)
[2025-07-19] MEDS: NOVOLOG FLEXPEN-LOW RESISTANCE 2 UNITS SC (13:01)
[2025-07-19] MEDS: SENOKOT-S 1 TABLET PO (13:05)
[2025-07-19] MEDS: ZOSTRIX-HP 0.075% CREAM TOPICAL (13:06)
[2025-07-19 15:13] VITALS: BP 121/69
[2025-07-19 16:46] LABS: COVID-19 Antigen Negative (Negative)
[2025-07-19] MEDS: REQUIP 0.5 MG PO (17:05)
--- NOTE | 2025-07-20 10:27 | W.HF.CON ---
Heart Failure
- LV Function
Left ventricular function study result: LV Ejection fraction 41-49% (ECHO 05/23/25)
Ejection Fraction Percentage: 40-45
- ARNI
Patient already on ARNI: No
Heart Failure ARNI Not Indicated: LV Ejection Fraction >/= 40%
- ACEI/ARB
Patient already on ACEI/ARB: No
Heart Failure ACEI/ARB Not Indicated: LV Ejection Fraction > 40%
- Beta Mary
Patient already on Evidence Based Beta Mary: No
Heart Failure Evidence Based Beta Mary Not Indicated: LV Ejection Fraction > 40%
- Mineralocorticord Receptor Antagonist
Patient already on MRA: No
Heart Failure MRA Not Indicated: LV Ejection Fraction > 40%
- SGLT-2 Inhibitor
Patient already on SGLT-2 Inhibitor: No
Heart Failure SGLT-2 Inhibitor Contraindication: Patient Refusal (UTI)
- Afib Anticoagulation
Patient already on Anticoagulation for Afib: Yes
- NYHA CHF Classification
NYHA CHF Classification Level: Class III - Symptoms w/ min exertion, interferes w/ nml daily activity
- ACC/AHA Stage
ACC/AHA Stage: Stage D: Advanced Heart Failure (severe , decline intervention, seen by palliative care declines hospice)
== END 2025-07-19 17:21 | DRG 292 ==
LOC: 4 WEST ACU 02:25
PROVIDERS: Nurse Practitioner Family; ADMITTING PHYSICIAN Hospitalist; ATTENDING PHYSICIAN Hospitalist; CONSULT PHYSICIAN Internal Medicine Cardiovascular Disease; CONSULT PHYSICIAN Student in an Organized Health Care Education/Training Program; EMERGENCY PHYSICIAN Student in an Organized Health Care Education/Training Program; FAMILY PHYSICIAN Internal Medicine
DX: I50.23 Acute on chronic systolic (congestive) heart failure (principal); E87.1 Hypo-osmolality and hyponatremia; I5A Non-ischemic myocardial injury (non-traumatic); N39.0 Urinary tract infection, site not specified; Q39.9 Congenital malformation of esophagus, unspecified; Z87.891 Personal history of nicotine dependence; Z66 Do not resuscitate; I25.10 Atherosclerotic heart disease of native coronary artery without angina pectoris; I48.0 Paroxysmal atrial fibrillation; G25.81 Restless legs syndrome; F32.A Depression, unspecified; F41.9 Anxiety disorder, unspecified; Z87.440 Personal history of urinary (tract) infections; I95.1 Orthostatic hypotension; E11.51 Type 2 diabetes mellitus with diabetic peripheral angiopathy without gangrene; E11.43 Type 2 diabetes mellitus with diabetic autonomic (poly)neuropathy; K21.9 Gastro-esophageal reflux disease without esophagitis; K59.00 Constipation, unspecified; I35.0 Nonrheumatic aortic (valve) stenosis; Z79.01 Long term (current) use of anticoagulants; Z79.899 Other long term (current) drug therapy
CPT/HCPCS: 71046; 80048; 80053; 81003; 81015; 82962; 83735; 83880; 84484; 85014; 85018; 85025; 85027; 87077; 87086; 87186; 87811; 93005; 96374; 97110; 97116; 97530; 97535; 99291

== ENCOUNTER 2025-07-20 06:59 | Inpatient (IN) | payer OTHER, SELFPAY ==
[2025-07-20] VITALS (17 sets, daily range): BP systolic 84–136; BP diastolic 44–79; BMI 19.7; BMI 19.5; BMI 21.0
--- NOTE | 2025-07-20 04:30 | ED.GENMED ---
History of Present Illness
General
Chief Complaint: Breathing Problem
Source: patient and family
Exam Limitations: none
Time Seen by Provider: 07/20/25 04:04
Nursing documentation reviewed up to this point in time: agreed with
History of Present Illness
History of Present Illness:
Note:
CHIEF COMPLAINT(S)
Difficulty breathing and hypotension.
HISTORY OF PRESENT ILLNESS
The patient is an 89-year-old male who was just discharged today. He presents with difficulty breathing. He does not currently report any chest pain. There was one noted episode of hypotension with a blood pressure reading of 99/56 mmHg. Subsequent
readings have shown improvement with a blood pressure of 112 mmHg. The patient mentions feeling 'not good for breath.' Attempts to obtain a blood glucose level were initially unsuccessful due to peripheral vasoconstriction, likely from cold fingers,
but a subsequent reading was obtained.
ADDITIONAL HISTORY OBTAINED FROM SOURCES OTHER THAN THE PATIENT
According to EMS, the patient showed an episode of hypotension at 99/56 mmHg, which later stabilized to 112 mmHg. His oxygen saturation is currently 97%. The patient has a history of ischemic cardiomyopathy and pericardial effusion.
CHRONIC MEDICAL CONDITIONS SIGNIFICANTLY AFFECTING CARE
The patient has a history of ischemic cardiomyopathy and pericardial effusion.
PHYSICAL EXAM
General: Alert, no acute distress.
Skin: Warm, dry.
Head: Normocephalic, atraumatic.
Neck: Supple, trachea midline.
Eye Ears, nose, mouth and throat: Oral mucosa moist.
Cardiovascular: Normal peripheral perfusion, No edema.
Respiratory: Respirations are non-labored.
Gastrointestinal: Abdomen nondistended
Back: Normal range of motion, Normal alignment.
Musculoskeletal: Normal ROM, normal strength.
Neurological: Alert and oriented to person, place, time, and situation, No focal neurological deficit observed.
Psychiatric: Cooperative, appropriate mood & affect.
PROBLEM LIST
Acute:
1. Difficulty breathing
2. Hypotension
Chronic:
1. Ischemic cardiomyopathy
2. Pericardial effusion
DIFFERENTIAL DIAGNOSIS
The Differential Diagnosis includes, in no particular order and is not limited to:
1. Heart failure exacerbation
2. Acute coronary syndrome
3. Pneumonia
4. Pulmonary embolism
5. Cardiac arrhythmia
6. Chronic obstructive pulmonary disease exacerbation
7. Pericardial tamponade
8. Acute respiratory distress syndrome
9. Sepsis
10. Anemia
CARE-UPDATE
07/20/25 - 04:36
The 89-year-old female, recently discharged from the hospital, presents with shortness of breath. She has a past medical history of chronic heart failure and severe aortic stenosis. Currently, she is on Lasix. Due to her history of recurrent UTIs,
she was started on Rocephin and is now on a Quijano regimen.
Disposition:
SUMMARY OF ENCOUNTER
The patient is an 89-year-old female with a history of chronic heart failure who was recently discharged from the hospital. She presented to the emergency department with shortness of breath reported by the correction staff. During the emergency
visit, the patient experienced hypotension which subsequently normalized. Her breathing improved and became less labored over the course of the visit. Lasix (furosemide) 40 mg daily was held due to her hypotensive state.
DISPOSITION
Patient to be readmitted to the hospital service. The hospitalist has been made aware of the situation.
ASSESSMENT
The patient was assessed with a diagnosis of dyspnea and heart failure.
MANAGEMENT OF THE PATIENTS CARE WAS DISCUSSED WITH
The hospitalist was informed regarding the patients readmission and was involved in the care plan.
DIAGNOSIS
1. Dyspnea - ICD-10 code: R06.00
2. Heart failure - ICD-10 code: I50.9
Past History
Past History
ED Past Medical History: Cancer (breast, with radiation therapy), CVA (April 2021), HTN (labile), NIDDM, Seizures (Possible seizures, abnormal EEG), Psychiatric (major depression), Other (iron deficiency anemia, aortic stenosis, pulmonary
hypertension, seizure) and Other (hiatal hernia)
ED Past Surgical History: Appendectomy, Gynecological (hysterectomy) and Other (left-sided mastectomy 2018, right CEA)
Social History
Tobacco: Other (distant history)
Alcohol: None
Drug: None
Personal:
Living: with family
Employment: Retired
Family History
Family History: Other (reviewed and noncontributory)
Phy Exam
Physical Exam
Physical Exam:
.
Scores
Heart Failure Risk
Heart Failure Risk Score: Yes
History of Stroke or TIA: Yes
History of intubation for respiratory distress: No
Heart rate on ED arrival >/= 110: Yes
SaO2 <90% on arrival on room air: Yes
HR >/=110 during 3min walk test (or too ill to perform test): Yes
ECG has acute ischemic changes: Yes
Urea >/=12mmol/L (BUN 33.6mg/dL): No
Serum CO2>/=35mmol/L: No
Troponin I or T elevated to MN Level (0.4mg/dL): No
NT-proBNP >/=5,000ng/L (5,000pg/ml): Yes
HF Risk Score: 7
Admission Status: VERY HIGH RISK 69.8% Consider admission to hospital
Course
Orders/Labs/Results
Orders:
Orders
07/20/25 04:05
CMP [Comprehensive Metabolic Panel] Urgent
Complete Blood Count/With Diff Urgent
07/20/25 04:53
Electrocardiogram (*1) Urgent
Reason for Study: Shortness of Breath
07/20/25 04:54
Add On- LAB Urgent
Tests Added?: Pro BNP
07/20/25 04:58
NT-proBNP Urgent
Comment: ADD ON
Troponin I Urgent
07/20/25 05:45
CR Chest - 2 Views Urgent
Comment:
Reason For Exam: dyspnea
Abnormal Lab Results
07/20/25
04:05
RBC 3.22 L 10^6/uL
(4.20-5.40)
Hgb 9.8 L g/dL
(12.0-16.0)
Hct 28.4 L %
(37.0-47.0)
RDW 15.0 H %
(11.5-14.5)
Absolute Neuts (auto) 8.6 H 10^3/uL
(1.4-6.5)
Absolute Lymphs (auto) 0.4 L 10^3/uL
(1.2-3.4)
Neutrophils % 89.8 H %
(42.2-75.2)
Lymphocytes % 3.8 L %
(20.5-51.1)
Sodium 128 L mmol/L
(135-145)
Carbon Dioxide 21 L mmol/L
(22-30)
BUN 31 H mg/dl
(7-17)
Glucose 330 H mg/dl
(70-99)
AST 76 H U/L
(14-36)
ALT 37 H U/L
(0-35)
07/20/25 04:05
07/20/25 04:05
Vital Signs
Initial and Last Documented VS:
Initial Vital Signs
Temp Pulse Resp BP Pulse Ox
98.5 F 77 31 110/53 96
07/20/25 03:45 07/20/25 03:45 07/20/25 03:45 07/20/25 03:45 07/20/25 03:45
Last Documented Vital Signs
Temp Pulse Resp BP Pulse Ox
98.5 F 72 25 84/48 92
07/20/25 03:45 07/20/25 04:30 07/20/25 04:30 07/20/25 04:15 07/20/25 04:30
*Pulse Oximetry
SaO2: 92
Nasal Cannula flow liters per minute: 2
Patient hypoxic: no
*Critical Care Note
Total Time (30-74mins, 75-104mins- exclusive of procedures): Not Applicable
ED Attending Note
-
Portions of this chart may have been created with voice recognition software.� Occasional wrong word or��sound alike� substitutions may have occurred due to the inherent limitations of voice recognition software.
Discharge Plan
Departure
Prescriptions:
No Action
PreserVision AREDS 1 CAP capsule
1 cap PO BID
methenamine hippurate 1 gram Tablet
1 g PO BID
ropinirole 0.5 mg Tablet
0.5 mg PO HS
cyanocobalamin (vitamin B-12) 1,000 mcg Tablet
1,000 mcg PO DAILY
ascorbic acid (vitamin C) [Vitamin C] 500 mg Tablet
500 mg PO DAILY
cholecalciferol (vitamin D3) [Vitamin D3] 25 mcg (1,000 unit) Tablet
25 mcg PO DAILY
Visbiome 112.5 billion cell Capsule
1 cap PO DAILY
melatonin 5 mg Tablet
5 mg PO HS
lidocaine 4 % adhesive patch,medicated
1 patch topical HS
polyethylene glycol 3350 [Miralax] 17 gram Powder In Packet
17 g PO DAILY
amiodarone 200 mg tablet
200 mg PO DAILY
capsaicin [Arthritis Pain Relief(capsaic)] 0.075 % cream
1 applic topical QID
pantoprazole 40 mg tablet,delayed release (DR/EC)
40 mg PO DAILY
magnesium oxide 500 mg magnesium tablet
500 mg PO BID
Eliquis 2.5 mg tablet
2.5 mg PO BID
acetaminophen 325 MG tablet
650 mg PO Q6HPRN PRN (Reason: pain) Qty: 0 0RF
ipratropium-albuterol 0.5 mg-3 mg(2.5 mg base)/3 mL Solution For Nebulization
3 ml inhalation R Q4HPRN PRN (Reason: Shortness of breath/wheeze) Qty: 90 0RF
metformin 500 mg tablet
500 mg PO DAILY
furosemide [Lasix] 40 mg tablet
60 mg PO DAILY Qty: 30 0RF
sulfamethoxazole-trimethoprim [Bactrim DS] 800-160 mg tablet
1 tab PO BID 3 Days Qty: 6 0RF
alprazolam 0.5 mg Tablet
0.25 mg PO BIDPRN PRN (Reason: Anxiety) Qty: 4 0RF
senna 8.6 mg capsule
8.6 mg PO BID Qty: 20 0RF
Referrals:
Nuzhat Zhu DO [Family Provider, Family Practice]
Interventions
Interventions:
*Risk Screen - Suicide Last Done: 07/20/25 04:01
*General Assessment Last Done: 07/20/25 04:01
*Neglect/Abuse Screening Last Done: 07/20/25 04:01
*ED COVID-19 Vaccine History Last Done: 07/20/25 04:01
*ED Influenza Vaccine History Last Done: 07/20/25 04:01
ED- Cardiac Assessment Last Done: 07/20/25 04:21
ED- Pulmonary Assessment Last Done: 07/20/25 04:21
Discharge Date and Time
Print Language: CITIZ[place]
[2025-07-20 04:39] LABS: Hematocrit 28.4 % (37.0-47.0); Hemoglobin 9.8 g/dL (12.0-16.0); Mean Corp Hgb Conc. 34.5 g/dL (33.0-37.0); Mean Corpuscular Volume 88.2 fL (81.0-99.0); Nucleated Red Blood Cells % 0 %; Platelet Count 212 10^3/uL (130-400); Red Cell Dist. Width 15.0 % (11.5-14.5)
[2025-07-20 04:55] LABS: ALT (SGPT) 37 U/L (0-35); AST (SGOT) 76 U/L (14-36); Albumin 3.6 g/dl (3.5-5.0); Alkaline Phosphatase 103 U/L (38-126); Blood Urea Nitrogen 31 mg/dl (7-17); Calcium 9.2 mg/dl (8.4-10.2); Carbon Dioxide 21 mmol/L (22-30); Chloride 100 mmol/L (98-107); Estimated Creatinine Clearance 44 ml/min; Glucose 330 mg/dl (70-99); Potassium 4.5 mmol/L (3.5-5.1); Sodium 128 mmol/L (135-145); Total Protein 6.3 g/dl (6.3-8.2); eGFR > 60.00
[2025-07-20 05:55] LABS: Troponin I 0.044 ng/ml
--- NOTE | 2025-07-20 06:05 | HPS.HSE ---
Family Physician
-
Family Physician: Nuzhat Zhu, DO
Chief Complaint
-
Shortness of breath
History of Present Illness
This is a 89-year-old with past medical history significant for atrial fibrillation on anticoagulation, CHF with, cardiomyopathy and moderately reduced EF, severe aortic stenosis, rhz-wltqesf-zelpizvrn diabetes presenting to the emergency department
with shortness of breath.
Patient was admitted to the hospital recently and was just discharged yesterday for CHF exacerbation. At the time she has pulmonary edema and bilateral pleural effusion. She was placed on Lasix and ultimately transition to 60 mg of p.o. Lasix
daily yesterday. Patient was adamant to be discharged yesterday she felt that she was improved. Weight had stabilized at that time.
On arrival at the [facility] the patient reports severe dyspnea on exertion. She reports that she felt short of breath anytime she tried to move. She also felt like she could not walk due to weakness in the legs. She denies feeling lightheaded
or dizzy. She denies having any chest pain. She denies having any palpitations. She was discharged on oxygen and patient had to be placed on 4 L to maintain a sat of 95% now. She denies any cough or fevers. She spent approximately 6 hours away
from the hospital before returning.
Repeat vital signs on return showed blood pressure of initially 84/48 which improved spontaneously to now in the 90s over 60. Pulse was 72 regular and she was satting 94% on 5 L. ECG shows a sinus rhythm at rate of 69 with T wave inversions
throughout V1 through 6. First-degree AV block with LVH similar to prior. Troponin is 0.04 and BNP greater than 27,000. Chest x-ray remains pending. She has improved symptomatically after being placed on oxygen.
Patient has a CBC which is unchanged from prior. Her electrolytes BUN and creatinine notable for a sodium of 128 but otherwise unremarkable. Glucose was elevated at 300. There is slight elevation in AST with normal ALT.
Medical History
Past Medical History
Past Medical History: Reports Other
Additional Past Medical History:
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
Chronic HFmrEF
Severe Aortic Stenosis
DM-II
Seizure Disorder
Restless Leg Syndrome
Breast Cancer s/p Surgery and XRT
GERD / Hiatal Hernia
Past Surgical History: Reports Other
Additional Past Surgical History:
Left mastectomy
Right Carotid Stent
Hysterectomy
Partial Bowel Resection
Back Surgery
Social History
Tobacco: Non-smoker
Alcohol: None
Drug: None
Family History
Family History: Not pertinent
Allergies / Home Medications
Allergies reflects when Allergies were last updated in [facility].
Home Medications with original date entered in [facility]
Allergy/Medication List:
Allergies
Allergy/AdvReac Type Severity Reaction Status Date / Time
codeine Allergy Nausea Verified 06/16/25 13:21
morphine Allergy Unknown Verified 06/16/25 13:21
nitrofurantoin (From Allergy Hives Verified 06/16/25 13:21
Macrobid)
Home Medications
vitamins A,C,V-cvlr-zbzxdp 4,296 mcg-226 mg-90 mg capsule (PreserVision AREDS) 1 cap PO BID Supplement 02/09/22
methenamine hippurate 1 gram tablet 1 g PO BID Urinary Issue 09/08/24
ropinirole 0.5 mg tablet 0.5 mg PO HS RESTLESS LEG 09/08/24
alprazolam 0.5 mg tablet 0.25 mg (1/2 x 0.5 mg) PO BIDPRN PRN Anxiety #6 tabs 09/17/24
Lactobac no.2-Bifidobac no.1-S. thermo 112.5 billion cell capsule (Visbiome) 1 cap PO DAILY Supplement 05/22/25
ascorbic acid (vitamin C) 500 mg tablet (Vitamin C) 500 mg PO DAILY Supplement 05/22/25
cholecalciferol (vitamin D3) 25 mcg (1,000 unit) tablet (Vitamin D3) 25 mcg PO DAILY Supplement 05/22/25
cyanocobalamin (vitamin B-12) 1,000 mcg tablet 1,000 mcg PO DAILY Supplement 05/22/25
lidocaine 4 % topical patch 1 patch topical HS lower back pain 05/22/25
melatonin 5 mg tablet 5 mg PO HS Sleep 05/22/25
polyethylene glycol 3350 17 gram oral powder packet (Miralax) 17 g PO DAILY Constipation 05/22/25
amiodarone 200 mg tablet 200 mg PO DAILY Arrhythmia 06/16/25
apixaban 2.5 mg tablet (Eliquis) 2.5 mg PO BID Blood Clot Prevention/Tx 06/16/25
capsaicin 0.075 % topical cream (Arthritis Pain Relief (capsaicin)) 1 applic topical QID Arthritis 06/16/25
magnesium oxide 500 mg PO BID Supplement 06/16/25
pantoprazole 40 mg tablet,delayed release 40 mg PO DAILY Gastrointestinal Issue 06/16/25
acetaminophen 325 mg tablet 650 mg (2 x 325 mg) PO Q6HPRN PRN pain #0 tabs 06/19/25
furosemide 20 mg tablet 40 mg (2 x 20 mg) PO DAILY Fluid Retention/Swelling #60 tabs 06/19/25
ipratropium 0.5 mg-albuterol 3 mg (2.5 mg base)/3 mL nebulization soln 3 ml inhalation R Q4HPRN PRN Shortness of breath/wheeze #90 mL 06/20/25
metformin 500 mg tablet 500 mg PO DAILY Diabetes 07/15/25
Review of Systems
-
Constitutional: Reports No Symptoms
EENT: Reports No Symptoms
Respiratory: Reports Trouble Breathing
Cardiac: Reports No Symptoms
Abdomen/GI: Reports No Symptoms
: Reports No Symptoms
Musculoskeletal: Reports No Symptoms
Skin: Reports No Symptoms
Neurological: Reports Weakness
Endocrine: Reports No Symptoms
Hematologic/Lymphatic: Reports No Symptoms
Psych: Reports No Symptoms
Physical Exam
Vital Signs
Vital Signs
Temp Pulse Resp BP Pulse Ox
98.5 F 72 25 84/48 92
07/20/25 03:45 07/20/25 04:30 07/20/25 04:30 07/20/25 04:15 07/20/25 05:45
Physical Exam
General: Conversant; No Respiratory Distress
HEENT: NormoCephalic, Moist mucous membranes and Atraumatic
Respiratory: Wheezes, Crackles and Non Labored Respirations
Cardiac: S1/S2, Regular Rhythm and Murmur; No Rub, Gallop or Peripheral Edema
GI: Soft, Non Tender, Non Distended and Normal Bowel Sounds; No Organomegaly
Rectal: Deferred by Provider
Genito-urinary: Deferred by me
Musculoskeletal: No Clubbing, No Cyanosis and No Edema
Skin: No Rash
Neuro: AO x 3 and Nonfocal/grossly intact
Hematologic/Lymphatic: No Lymphadenopathy
Laboratory Results
-
07/20/25 04:05
07/20/25 04:05
Laboratory Results
Total Bilirubin 1.1 mg/dl (0.2-1.3) 07/20/25 04:05
AST 76 U/L (14-36) H 07/20/25 04:05
ALT 37 U/L (0-35) H 07/20/25 04:05
Alkaline Phosphatase 103 U/L (38-126) 07/20/25 04:05
Troponin I 0.044 ng/ml H* 07/20/25 04:58
Data Reviewed
-
Medical Tests (Nuc Med, Echo, EKG etc): Image Personally Visualized and interpreted
Lab Data: Labs Reviewed by me
Old Records: Reviewed
Impression/Plan
-
IMPRESSION:
89-year-old with history of ischemic cardiomyopathy EF of 45%, severe , atrial fibrillation, jpd-fxvpnzx-ppbwoyblq diabetes, recently admitted and discharged yesterday for CHF exacerbation returning to the emergency department with acute shortness
of breath, hypoxia and weakness. BNP has increased since discharge and the sodium is now 128 down from 132. X-ray still pending. On exam she does have bilateral wheezing consistent with pulmonary edema. She is currently satting 95% on 4 L nasal
cannula. BP was initially 84 on arrival but now 90 systolic.
PLAN:
CHF exacerbation -patient with ongoing CHF exacerbation in the setting of severe aortic stenosis. High risk for flash pulmonary edema and picture complicated by hypotension.
-Admit to telemetry
-Given a dose of midodrine now and continue as needed hypotension
-Start Lasix 60 mg IV daily
-Limited role for GDMT at this time due to low BPs
-Consulted cardiology
CAD -troponin 0.044, no chest pain, T wave inversions seen on ECG similar to prior. Suspect nonischemic myocardial injury possibly due to hypoxia
-CHF management as above
-Supplemental oxygen
-Will not for the trend troponin at this time
-ECG for chest pain
-complicated with hypotension but no syncope. Denies chest pain.
- Patient declined coronary studies, likely will not get valve without appropriate coronary intervention so no option for valve replacement at this time
- Continue medical management
- seen by palliative on last admission, no invasive measures
- Cardiology consulted
Diabetes
-Continue metformin 500 mg p.o. daily
-Sliding scale insulin for now, will give a dose of insulin 5 units for blood glucose of 330
hyponatremia -when corrected returns back to sodium of 132
- diuresis as above
Recurrent UTI
- complete course of bactrim for 3 more days
AFIB - rate controlled
- continue eliquis
- continue amio 200mg daily
RLS
- continue ropinirole
DVT PPX - on eliquis
Code - status - DNR
--- NOTE | 2025-07-20 06:07 | ED.GENMED ---
History of Present Illness
General
Chief Complaint: Breathing Problem
Source: patient, family, ambulance crew, previous radiology exam and previous hospital records
Exam Limitations: none
Time Seen by Provider: 07/20/25 04:04
Nursing documentation reviewed up to this point in time: agreed with
History of Present Illness
History of Present Illness:
Note:
CHIEF COMPLAINT(S)
Difficulty breathing and hypotension.
HISTORY OF PRESENT ILLNESS
The patient is an 89-year-old male who was just discharged today. He presents with difficulty breathing. He does not currently report any chest pain. There was one noted episode of hypotension with a blood pressure reading of 99/56 mmHg. Subsequent
readings have shown improvement with a blood pressure of 112 mmHg. The patient mentions feeling 'not good for breath.' Attempts to obtain a blood glucose level were initially unsuccessful due to peripheral vasoconstriction, likely from cold fingers,
but a subsequent reading was obtained.
ADDITIONAL HISTORY OBTAINED FROM SOURCES OTHER THAN THE PATIENT
According to EMS, the patient showed an episode of hypotension at 99/56 mmHg, which later stabilized to 112 mmHg. His oxygen saturation is currently 97%. The patient has a history of ischemic cardiomyopathy and pericardial effusion.
CHRONIC MEDICAL CONDITIONS SIGNIFICANTLY AFFECTING CARE
The patient has a history of ischemic cardiomyopathy and pericardial effusion.
PHYSICAL EXAM
General: Alert, no acute distress.
Skin: Warm, dry.
Head: Normocephalic, atraumatic.
Neck: Supple, trachea midline.
Eye Ears, nose, mouth and throat: Oral mucosa moist.
Cardiovascular: Normal peripheral perfusion, No edema.
Respiratory: Respirations are non-labored.
Gastrointestinal: Abdomen nondistended
Back: Normal range of motion, Normal alignment.
Musculoskeletal: Normal ROM, normal strength.
Neurological: Alert and oriented to person, place, time, and situation, No focal neurological deficit observed.
Psychiatric: Cooperative, appropriate mood & affect.
PROBLEM LIST
Acute:
1. Difficulty breathing
2. Hypotension
Chronic:
1. Ischemic cardiomyopathy
2. Pericardial effusion
DIFFERENTIAL DIAGNOSIS
The Differential Diagnosis includes, in no particular order and is not limited to:
1. Heart failure exacerbation
2. Acute coronary syndrome
3. Pneumonia
4. Pulmonary embolism
5. Cardiac arrhythmia
6. Chronic obstructive pulmonary disease exacerbation
7. Pericardial tamponade
8. Acute respiratory distress syndrome
9. Sepsis
10. Anemia
CARE-UPDATE
07/20/25 - 04:36
The 89-year-old female, recently discharged from the hospital, presents with shortness of breath. She has a past medical history of chronic heart failure and severe aortic stenosis. Currently, she is on Lasix. Due to her history of recurrent UTIs,
she was started on Rocephin and is now on a Quijano regimen.
Disposition:
SUMMARY OF ENCOUNTER
The patient is an 89-year-old female with a history of chronic heart failure who was recently discharged from the hospital. She presented to the emergency department with shortness of breath reported by the alf staff. During the emergency
visit, the patient experienced hypotension which subsequently normalized. Her breathing improved and became less labored over the course of the visit. Lasix (furosemide) 40 mg daily was held due to her hypotensive state.
DISPOSITION
Patient to be readmitted to the hospital service. The hospitalist has been made aware of the situation.
ASSESSMENT
The patient was assessed with a diagnosis of dyspnea and heart failure.
MANAGEMENT OF THE PATIENTS CARE WAS DISCUSSED WITH
The hospitalist was informed regarding the patients readmission and was involved in the care plan.
DIAGNOSIS
1. Dyspnea - ICD-10 code: R06.00
2. Heart failure - ICD-10 code: I50.9
Past History
Past History
ED Past Medical History: Cancer (breast, with radiation therapy), CVA (April 2021), HTN (labile), NIDDM, Seizures (Possible seizures, abnormal EEG), Psychiatric (major depression), Other (iron deficiency anemia, aortic stenosis, pulmonary
hypertension, seizure) and Other (hiatal hernia)
ED Past Surgical History: Appendectomy, Gynecological (hysterectomy) and Other (left-sided mastectomy 2018, right CEA)
Social History
Tobacco: Other (distant history)
Alcohol: None
Drug: None
Personal:
Living: with family
Employment: Retired
Family History
Family History: Other (reviewed and noncontributory)
Course
Orders/Labs/Results
Orders:
Orders
07/20/25 04:05
CMP [Comprehensive Metabolic Panel] Urgent
Complete Blood Count/With Diff Urgent
07/20/25 04:53
Electrocardiogram (*1) Urgent
Reason for Study: Shortness of Breath
07/20/25 04:54
Add On- LAB Urgent
Tests Added?: Pro BNP
07/20/25 04:58
NT-proBNP Urgent
Comment: ADD ON
Troponin I Urgent
07/20/25 05:45
CR Chest - 2 Views Urgent
Comment:
Reason For Exam: dyspnea
07/20/25 06:05
Midodrine [ProAmatine] 5 mg PO NOW STA
Abnormal Lab Results
07/20/25 07/20/25
04:05 04:58
RBC 3.22 L 10^6/uL
(4.20-5.40)
Hgb 9.8 L g/dL
(12.0-16.0)
Hct 28.4 L %
(37.0-47.0)
RDW 15.0 H %
(11.5-14.5)
Absolute Neuts (auto) 8.6 H 10^3/uL
(1.4-6.5)
Absolute Lymphs (auto) 0.4 L 10^3/uL
(1.2-3.4)
Neutrophils % 89.8 H %
(42.2-75.2)
Lymphocytes % 3.8 L %
(20.5-51.1)
Sodium 128 L mmol/L
(135-145)
Carbon Dioxide 21 L mmol/L
(22-30)
BUN 31 H mg/dl
(7-17)
Glucose 330 H mg/dl
(70-99)
AST 76 H U/L
(14-36)
ALT 37 H U/L
(0-35)
Troponin I 0.044 H* ng/ml
07/20/25 04:05
07/20/25 04:05
Vital Signs
Initial and Last Documented VS:
Initial Vital Signs
Temp Pulse Resp BP Pulse Ox
98.5 F 77 31 110/53 96
07/20/25 03:45 07/20/25 03:45 07/20/25 03:45 07/20/25 03:45 07/20/25 03:45
Last Documented Vital Signs
Temp Pulse Resp BP Pulse Ox
98.5 F 72 25 84/48 92
07/20/25 03:45 07/20/25 04:30 07/20/25 04:30 07/20/25 04:15 07/20/25 05:45
*Pulse Oximetry
SaO2: 92
Nasal Cannula flow liters per minute: 2
ED Attending Note
-
Portions of this chart may have been created with voice recognition software.� Occasional wrong word or��sound alike� substitutions may have occurred due to the inherent limitations of voice recognition software.
Discharge Plan
Departure
Patient Disposition: Admit
Date of Disposition: 07/20/25
Time of Disposition: 06:07
Admit to: Telemetry
Presentation/result/management discussed w/ accepting MD/DO: Hospitalist
Patient with high blood pressure during this ER visit?: No
Condition: Good
Discharge Problem:
Congestive heart failure (CHF), Acute dyspnea, DNR (do not resuscitate)
Prescriptions:
No Action
PreserVision AREDS 1 CAP capsule
1 cap PO BID
methenamine hippurate 1 gram Tablet
1 g PO BID
ropinirole 0.5 mg Tablet
0.5 mg PO HS
cyanocobalamin (vitamin B-12) 1,000 mcg Tablet
1,000 mcg PO DAILY
ascorbic acid (vitamin C) [Vitamin C] 500 mg Tablet
500 mg PO DAILY
cholecalciferol (vitamin D3) [Vitamin D3] 25 mcg (1,000 unit) Tablet
25 mcg PO DAILY
Visbiome 112.5 billion cell Capsule
1 cap PO DAILY
melatonin 5 mg Tablet
5 mg PO HS
lidocaine 4 % adhesive patch,medicated
1 patch topical HS
polyethylene glycol 3350 [Miralax] 17 gram Powder In Packet
17 g PO DAILY
amiodarone 200 mg tablet
200 mg PO DAILY
capsaicin [Arthritis Pain Relief(capsaic)] 0.075 % cream
1 applic topical QID
pantoprazole 40 mg tablet,delayed release (DR/EC)
40 mg PO DAILY
magnesium oxide 500 mg magnesium tablet
500 mg PO BID
Eliquis 2.5 mg tablet
2.5 mg PO BID
acetaminophen 325 MG tablet
650 mg PO Q6HPRN PRN (Reason: pain) Qty: 0 0RF
ipratropium-albuterol 0.5 mg-3 mg(2.5 mg base)/3 mL Solution For Nebulization
3 ml inhalation R Q4HPRN PRN (Reason: Shortness of breath/wheeze) Qty: 90 0RF
metformin 500 mg tablet
500 mg PO DAILY
furosemide [Lasix] 40 mg tablet
60 mg PO DAILY Qty: 30 0RF
sulfamethoxazole-trimethoprim [Bactrim DS] 800-160 mg tablet
1 tab PO BID 3 Days Qty: 6 0RF
alprazolam 0.5 mg Tablet
0.25 mg PO BIDPRN PRN (Reason: Anxiety) Qty: 4 0RF
senna 8.6 mg capsule
8.6 mg PO BID Qty: 20 0RF
Referrals:
Nuzhat Zhu DO [Family Provider, Family Practice]
Interventions
Interventions:
*Risk Screen - Suicide Last Done: 07/20/25 04:01
*General Assessment Last Done: 07/20/25 04:01
*Neglect/Abuse Screening Last Done: 07/20/25 04:01
*ED COVID-19 Vaccine History Last Done: 07/20/25 04:01
*ED Influenza Vaccine History Last Done: 07/20/25 04:01
ED- Cardiac Assessment Last Done: 07/20/25 04:21
ED- Pulmonary Assessment Last Done: 07/20/25 04:21
Discharge Date and Time
Print Language: POLISH
[2025-07-20 06:48] LABS: Glucose - Point of Care 271 mg/dl (70-99)
[2025-07-20] MEDS: LASIX 60 MG IV (07:13)
[2025-07-20] MEDS: PROTONIX 40 MG PO (08:47)
[2025-07-20] MEDS: VISBIOME 1 CAP PO (08:47)
[2025-07-20] MEDS: MIRALAX 17 GRAMS PO (08:47)
[2025-07-20] MEDS: PACERONE 200 MG PO (08:47)
[2025-07-20] MEDS: ELIQUIS 2.5 MG PO ×2 (08:47→21:07)
[2025-07-20] MEDS: GLUCOPHAGE 500 MG PO (08:47)
[2025-07-20] MEDS: ZOSTRIX-HP 0.075% CREAM TOPICAL ×4 (08:48→18:01)
[2025-07-20] MEDS: SENOKOT 8.6 MG PO ×2 (08:48→21:07)
--- NOTE | 2025-07-20 09:22 | W.PN.CARDCBS ---
Addendum entered and electronically signed by Deana Funes DO 07/20/25 19:54:
Spoke with patient's daughter and son-in-law regarding regarding her decline, recurrent hospitalizations and expectations as well as prognosis. They are considering options of palliative care versus hospice. Will continue IV diuretics. Please
check overnight pulse oximeter as well as ambulatory pulse oximeter for home O2
Addendum entered and electronically signed by Deana Funes DO 07/20/25 14:15:
I saw and examined the patient.
The Dra[employer]'s note was reviewed and I agree with the note.
Comment: Patient was seen and examined in ED bed 13. Estella is well-known to me from the outpatient setting with history of chronic heart failure with mildly reduced ejection fraction, severe aortic stenosis previously declined TAVR evaluation,
suspected coronary artery disease and previous declined cardiac catheterization, PAF on Eliquis anticoagulation, autonomic dysfunction/orthostasis, congenital malformation of the esophagus/dysphagia/GERD and hiatal hernia, type 2 diabetes mellitus
with neuropathy and remote history of breast cancer with radiation status post mastectomy. She has a DNR/DNI who had previously been on hospice following multiple ischemic strokes but recovered. She was recently hospitalized for heart failure
decompensation from July 14-2024 and discharged to [facility]. She states that she tried to walk and became very short of breath and weak prompting readmission. proBNP > 27,000 with chest x-ray consistent with heart failure.
General: Frail 89-year-old female in ED bed 13 on nasal cannula O2. A bit emotional during our conversation with mild dyspnea
Heart: Regular, positive S1/S2, 2/6 SM
Lungs: Bronchovesicular breath sounds decreased bilaterally with fine bibasilar Crackles
Abd: Positive BS, NT/ND, neg rebound/rigidity/guarding
Ext: No edema
Plan:
HFmrEF- Ongoing decompensation
-Received 60 mg IV in the emergency room and will reassess later today for additional Lasix.
-BUN/creatinine stable 31/0.8. Na 128
-Hypotension has limited uptitration of GDMT in the past.
-Did not tolerate Toprol or DAVID inhibitor in the past due to hypotension.
-She is not candidate for SGLT2 due to history of UTIs.
-Unfortunately with her she is high risk for recurrent admit for HF and this was reviewed.
-DNR/DNI
-Hospice and palliative care were discussed with pt- She was previously on hospice following strokes but had recovered. She is interested in palliative care while she is receiving home PT/OT. This was discussed with primary service and they will
initiate consult.
Severe aortic stenosis�she has previously declined consideration/workup for TAVR and is now not a candidate.
Presumed coronary artery disease and has previously declined invasive procedures including cardiac catheterization. No chest pain or pressure. Continue conservative medical therapy
History of atrial fibrillation currently in sinus rhythm
- Continue amiodarone and Eliquis.
-H/H stable.
UTI tx per primary service
Original Note:
Today's Communication / Plan
-
IV diuresis
Impression / Plan
-
.
Primary Meal Room Hand: Dr. Funes
Impression:
Presented 07/14/25 shortness of breath, weight gain, fatigue, and orthopnea, discharged 07/19/2025 after diuresing at least 5 pounds but re-presented from [facility] today, 07/20/2025, with shortness of breath
Acute on chronic heart failure mildly reduced EF, proBNP >45487 07/20, was 25,500 last admit 07/14/25
Severe aortic stenosis
Hyponatremia
UTI
Elevated troponin, peak 0.045
Paroxysmal atrial fibrillation
CM EF 40-45% Apr 2024
Abnormal stress test, patient has declined cardiac catheterization on multiple occasions as OP
h/o multiple ischemic strokes which have been felt likely to represent small vessel disease and atherosclerosis
Autonomic dysfunction/hypotension/orthostasis treated with midodrine as needed
Carotid stenosis, right s/p stent
Hypercholesterolemia
Type 2 diabetes with diabetic neuropathy
History of seizure disorder
Breast Ca with Radiation Therapy s/p Left Mastectomy
GERD/Hiatal Hernia
RLS
UTIs
Iron Deficiency
Congenital malformation of esophagus
Gait difficulty
Dysphagia
Former smoker
PSH: Hysterectomy /History of bowel resection/ Back surgery
Echo 05/15/2024: EF 40 to 45%, global hypokinesis, stage II diastolic dysfunction, MAC, mild MR, mild to moderate with peak/mean gradients 27/18 mmHg, KAYLEIGH 1.4 cm�, trace AR
ECHO 05/25/2024: EF 40 to 45%, apex, inferolateral, inferior and anterior perez are hypokinetic, appears stable compared to prior.
Echo 09/08/2024: EF 40-45%, inferior, inferolateral, anterior, and apical hypokinesis. Mild MS, MAC, mild MR, moderate to severe (57/32 mmHg), mild to moderate TR, mild pulmonary hypertension PASP 43 mmHg
Echo 05/23/2025: LVEF 40 to 45%, normal RV size and function, severe , KAYLEIGH 0.6 cm�, peak and mean AV gradients of 46 and 27 mmHg, mild MS, mild MR, mild TR, PAP 45 mmHg
Plan:
Needs additional diuresis, already received Lasix 60 mg IV today. Will assess response later today and consider additional dose if needed.
During last admission she was on Lasix 40 mg IV twice daily, then daily
Her wt is stable from 07/19/2025 but patient appears winded on exam with crackles at bases
BUN/creatinine stable 31/0.8. Na 128
Hypotension has limited uptitration of GDMT in the past.
Did not tolerate Toprol or DAVID inhibitor in the past due to hypotension.
She is not candidate for SGLT2 due to history of UTIs.
Unfortunately with her she is high risk for recurrent admit for HF and this was reviewed.
Hospice and palliative care were discussed with pt.
Bp stable. She rec'd one dose of Midodrine upon admission and has been on it in the past but did not require it during last admission. Monitor BPs.
Remains in sinus rhythm. Continue amiodarone and Eliquis.
H/H stable.
Her long-term prognosis is very poor. Discussed palliative care and hospice with her in past and will discuss again
She was seen by palliative care during last admission
She is DNR
-She has declined interventions including cardiac cath and evaluation for her severe aortic stenosis.
UTI tx per primary service
Mild troponin elevation, 0.044, likely nonischemic myocardial injury in setting of hypoxia. Patient denies chest pain. EKG normal sinus rhythm and unchanged from baseline
HPI: 89-year-old female well-known to our service recently discharged from the hospital June 16, 2025 with acute on chronic heart failure with mildly reduced ejection fraction and severe aortic stenosis returns with more shortness of breath,
weight gain, fatigue, and orthopnea. The patient lives at home with her daughter. She has had increased fatigue and symptoms for the past 3 to 4 days. She denies any lower extremity edema but does have abdominal fullness. Her baseline weight is
around 133 her weight today was up to 140 pounds. She denies any dietary indiscretion. She has no chest pains. She has no palpitations or syncope. She has no bleeding or falls. Her energy is slowly declining and feeding. She is DNR. She has
declined cardiac cath and evaluation for her aortic stenosis in the past.
Progress Note - Meal Room Hand
Subjective
Date of Service: July 20, 2025
-readmitted overnight, less than 24 hrs after discharge for acute HFrEF
-c/o SOB
Weight stable overnight
Objective
Labs:
07/20/25 04:05
07/20/25 04:05
Labs
Hgb 9.8 g/dL (12.0-16.0) L 07/20/25 04:05
Hct 28.4 % (37.0-47.0) L 07/20/25 04:05
Plt Count 212 10^3/uL (130-400) 07/20/25 04:05
Sodium 128 mmol/L (135-145) L 07/20/25 04:05
Potassium 4.5 mmol/L (3.5-5.1) 07/20/25 04:05
BUN 31 mg/dl (7-17) H 07/20/25 04:05
Creatinine 0.8 mg/dL (0.6-1.0) 07/20/25 04:05
Glucose 330 mg/dl (70-99) H 07/20/25 04:05
Troponins
07/20/25
04:58
Troponin I 0.044 H*
Vital Signs and I&O:
Vital Signs
Temp Pulse Resp BP Pulse Ox
97.9 F 68 19 135/64 97
07/20/25 08:57 07/20/25 08:47 07/20/25 07:15 07/20/25 08:47 07/20/25 09:04
Vital Signs
Temp Pulse Resp BP Pulse Ox
97.9 F 68 19 135/64 97
07/20/25 08:57 07/20/25 08:47 07/20/25 07:15 07/20/25 08:47 07/20/25 09:04
Physical Exam
Physical Exam
GEN: No distress, awake, Ox3
HEENT: supple, anicteric, mmm
LUNGS: Rales at bases
CV: Reg, S1/S2, 3/6 syst LSB
ABD: soft, BS+, NT/ND
EXT: No edema
NEURO: Gross non-focal
SKIN: No rash
[2025-07-20] MEDS: NOVOLOG FLEXPEN-LOW RESISTANCE 3 UNITS SC (09:24)
[2025-07-20] MEDS: NOVOLOG vial 3 UNITS SC (09:26)
[2025-07-20] MEDS: STERILE WATER FOR INJECTION 10 ML IV (10:37)
[2025-07-20] MEDS: ROCEPHIN 1000 MG IV (10:37)
--- NOTE | 2025-07-20 11:24 | W.PN.HOSP.TC ---
Today's Communication/Plan
-
Diuresis
Assessment / Plan
Assessment / Plan
Physical exam:
General: Acute on chronically ill
HEENT: Normocephalic, Atraumatic and Moist Mucous Membranes
Respiratory: Clear to auscultation bilaterally; Negative Wheezes or Rhonchi
Cardiac: Regular Rhythm and S1/S2, systolic murmur
GI: Soft, Nontender and Nondistended
Musculoskeletal: No Clubbing, No Cyanosis. Bilateral lower extremity edema
Neuro: Awake, Alert and Oriented, no neurological deficits
Psych: Calm
A/P:
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
Readmission today
Discussed with cardiology
Continue IV Lasix 60 mg daily
Cautious to avoid hypotension in the setting of
GDMT limited by hypotension. Not a candidate for SGLT2 due to recurrent UTIs
Cardiology consult appreciated
Echo done 04/2025 with LVEF = 40-45% and severe .
Patient has declined cardiac intervention such as cardiac cath and evaluation for aortic stenosis as well
Repeated labs today while she is on diuresis
PT OT eval
Reached out to palliative care again today did not see why they need to see her again.
Hospice eval if patient and family agreeable but there is some hesitancy yet.
Discussed with granddaughter today
History of recurrent UTI and possible another UTI:
Started on IV Rocephin and can continue IV Rocephin for now and will switch to Bactrim upon d/c if renal function and electrolytes ok and still needed
Urine culture growing E. coli
On suppressive antibiotics, methenamine 1 g p.o. twice a day--> hold and resume when finish this course.
On lactobacillus
Constipation:
Start senna
Orthostatic hypotension:
Monitor blood pressure
Consider midodrine if drops but hold off given heart failure
Anemia:
No signs of active bleeding
Hb 9.8 today
Continue to monitor closely
Chronic Hyponatremia:
Up to 128 today
Continue to monitor with diuresis
Add restriction of oral fluid intake
ASCVD Abnormal Troponin:
Due to demand mismatch ischemia
Paroxysmal Atrial Fibrillation:
Continue antiarrhythmic, amiodarone 200 mg p.o. daily
Continue anticoagulation, Eliquis 2.5 mg p.o. twice a day
DM-II:
Continue insulin sliding scale
Hgb A1C was 7% in 04/2025.
RLS/Anxiety / Depression:
Continue current medications including Requip and PRN Xanax.
GERD:
On PPI
DVT Prophylaxis:
On Eliquis
Code Status:
DNR
Total time spent on today's encounter was 38 minutes which included time spent in counseling the patient/family regarding diagnosis and treatment plan as listed above, goals of care, and symptom management. Case was discussed with nursing staff,
specialists, and care coordinators/case management. All labs and imaging personally reviewed by me. Remainder the time spent in detailed review of previous records, lab data, imaging, and other medical provider documentation.
Anticipated Discharge: > 48 hours
Subjective/Interval History
-
Date of Service: July 20, 2025
Patient with shortness of breath. On supplemental oxygen. Afebrile
Objective Data
-
Labs:
Laboratory Results
07/20/25
04:05
WBC 9.6
Hgb 9.8 L
Hct 28.4 L
Plt Count 212
Sodium 128 L
Potassium 4.5
Chloride 100
Carbon Dioxide 21 L
BUN 31 H
Creatinine 0.8
Glucose 330 H
Calcium 9.2
Total Bilirubin 1.1
AST 76 H
ALT 37 H
Alkaline Phosphatase 103
Vital Signs:
Vital Signs
Temp Pulse Resp BP Pulse Ox
97.9 F 68 19 135/64 97
07/20/25 08:57 07/20/25 08:47 07/20/25 07:15 07/20/25 08:47 07/20/25 09:04
[2025-07-20 12:44] LABS: Glucose - Point of Care 176 mg/dl (70-99)
--- NOTE | 2025-07-20 12:47 | CM ---
Addendum entered by Nieves Morton 07/20/25 16:08:
Hospice options reviewed with daughter Parvin and referral sent to [facility].
Original Note:
liquor store manager reviewed patient's chart and met with patient, patient was recently discharge from the hospital to [facility] for skilled rehab, prior to skilled placement, patient lives with her daughter, Parvin in a 2 story home with 3 steps to
enter, patient required assist with adl's and used a walker with ambulation. Patient has a shower chair, patient is currently on oxygen, and was not on oxygen prior to admission, adult protective caseworker received a consult for hospice, per physician plan to
review hospice with patient's daughter when she comes to the hospital this afternoon.
PCP: Nuzhat Zhu
Pharmacy: [facility].
[2025-07-20] MEDS: LANTUS 0.15 UNITS SC (12:48)
[2025-07-20] MEDS: NOVOLOG FLEXPEN-LOW RESISTANCE 1 UNITS SC ×2 (12:48→17:58)
--- NOTE | 2025-07-20 16:26 | HOSPNOTE ---
Hospice referral received. Peace spoke to the family and gave all the information regarding hospice. The plan at this time is patient is being admitted and we will follow up with family on Wednesday. We will continue to follow and be available. More
information to follow.
[2025-07-20 17:22] LABS: Glucose - Point of Care 151 mg/dl (70-99)
--- NOTE | 2025-07-20 17:30 | PTCARENOTE ---
Received patient from ED via stretcher. AAOx3, tearful. Assisted to bed. Assessed and oriented to room. Call bartlett in close reach. Daughter at bedside.
[2025-07-20] MEDS: REQUIP 0.5 MG PO (18:01)
[2025-07-20] MEDS: REQUIP PO (18:48)
[2025-07-20] MEDS: LIDOCAINE 4% PATCH 1 PATCH TOPICAL (21:06)
[2025-07-20] MEDS: MAGNESIUM OXIDE 400 MG PO (21:07)
[2025-07-20] MEDS: MELATONIN 5 MG PO (21:07)
[2025-07-20] MEDS: ZOSTRIX-HP 0.075% CREAM 1 APPLIC TOPICAL (21:07)
[2025-07-20 21:52] LABS: Glucose - Point of Care 198 mg/dl (70-99)
[2025-07-21 03:44] VITALS: BP 111/59
[2025-07-21 06:00] VITALS: BMI 21.2
[2025-07-21 06:59] LABS: Glucose - Point of Care 162 mg/dl (70-99)
[2025-07-21 07:00] VITALS: BP 107/68
[2025-07-21 07:15] LABS: Hematocrit 31.0 % (37.0-47.0); Hemoglobin 10.1 g/dL (12.0-16.0); Mean Corp Hgb Conc. 32.6 g/dL (33.0-37.0); Mean Corpuscular Volume 93.1 fL (81.0-99.0); Platelet Count 212 10^3/uL (130-400); Red Cell Dist. Width 15.5 % (11.5-14.5)
[2025-07-21 07:34] LABS: Blood Urea Nitrogen 29 mg/dl (7-17); Calcium 9.1 mg/dl (8.4-10.2); Carbon Dioxide 28 mmol/L (22-30); Chloride 99 mmol/L (98-107); Estimated Creatinine Clearance 40 ml/min; Glucose 154 mg/dl (70-99); Magnesium 1.9 mg/dl (1.6-2.3); Potassium 4.3 mmol/L (3.5-5.1); Sodium 133 mmol/L (135-145); eGFR > 60.00
[2025-07-21] MEDS: NOVOLOG FLEXPEN-LOW RESISTANCE 1 UNITS SC ×2 (09:00→12:42)
[2025-07-21] MEDS: MIRALAX 17 GRAMS PO (09:01)
[2025-07-21] MEDS: VITAMIN B-12 1000 MCG PO (09:02)
[2025-07-21] MEDS: VISBIOME 1 CAP PO (09:02)
[2025-07-21] MEDS: GLUCOPHAGE 500 MG PO (09:03)
[2025-07-21] MEDS: MAGNESIUM OXIDE 400 MG PO ×2 (09:03→20:54)
[2025-07-21] MEDS: SENOKOT 8.6 MG PO ×2 (09:03→20:54)
[2025-07-21] MEDS: ELIQUIS 2.5 MG PO ×2 (09:03→20:54)
[2025-07-21] MEDS: PACERONE 200 MG PO (09:03)
[2025-07-21] MEDS: LASIX 60 MG IV ×2 (09:04→20:52)
[2025-07-21] MEDS: LANTUS 0.15 UNITS SC (09:04)
[2025-07-21] MEDS: PROTONIX 40 MG PO (09:05)
[2025-07-21] MEDS: ZOSTRIX-HP 0.075% CREAM TOPICAL ×4 (09:05→21:26)
[2025-07-21] MEDS: FLUSH (NSS) 1 FLUSH IV ×2 (09:06→09:39)
[2025-07-21] MEDS: ROCEPHIN 1000 MG IV (09:39)
[2025-07-21] MEDS: STERILE WATER FOR INJECTION 10 ML IV (09:39)
[2025-07-21 09:40] LABS: Glycohemoglobin (HgbA1c) 7.1 % (4.0-5.9)
--- NOTE | 2025-07-21 10:21 | W.PN.HOSP.TC ---
Today's Communication/Plan
-
IV Lasix
Assessment / Plan
Assessment / Plan
Physical exam:
General: Acute on chronically ill
HEENT: Normocephalic, Atraumatic and Moist Mucous Membranes
Respiratory: Clear to auscultation bilaterally; Negative Wheezes or Rhonchi
Cardiac: Regular Rhythm and S1/S2, systolic murmur
GI: Soft, Nontender and Nondistended
Musculoskeletal: No Clubbing, No Cyanosis. Bilateral lower extremity edema
Neuro: Awake, Alert and Oriented, no neurological deficits
Psych: Calm
A/P:
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
Readmission this hospitalization
Discussed with cardiology today on 07/21 and she is not medically cleared for discharge yet
Continue Lasix but increase to 60 mg IV twice a day
Cautious to avoid hypotension in the setting of
GDMT limited by hypotension. Not a candidate for SGLT2 due to recurrent UTIs
Cardiology consult appreciated
Echo done 04/2025 with LVEF = 40-45% and severe .
Patient has declined cardiac intervention such as cardiac cath and evaluation for aortic stenosis as well
Repeated labs today while she is on diuresis
PT OT eval
Reached out to palliative care again today did not see why they need to see her again.
Hospice eval if patient and family agreeable but there is some hesitancy yet.
Discussed with granddaughter over the phone yesterday. Discussed with son at bedside today.
History of recurrent UTI and possible another UTI:
Started on IV Rocephin and can continue IV Rocephin for now and will switch to Bactrim over the next 24 hours or upon d/c if renal function and electrolytes ok and still needed
Urine culture growing E. coli
On suppressive antibiotics, methenamine 1 g p.o. twice a day--> hold and resume when finish this course.
On lactobacillus
Constipation:
Started senna
Orthostatic hypotension:
Monitor blood pressure
Consider midodrine if drops but hold off given heart failure
Anemia:
No signs of active bleeding
Hb 10.1 today
Chronic Hyponatremia:
Up to 133 today
Continue to monitor with diuresis
Added restriction of oral fluid intake
ASCVD Abnormal Troponin:
Due to demand mismatch ischemia
Paroxysmal Atrial Fibrillation:
Continue antiarrhythmic, amiodarone 200 mg p.o. daily
Continue anticoagulation, Eliquis 2.5 mg p.o. twice a day
DM-II:
Continue insulin sliding scale
Hgb A1C was 7% in 04/2025.
RLS/Anxiety / Depression:
Continue current medications including Requip and PRN Xanax.
GERD:
On PPI
DVT Prophylaxis:
On Eliquis
Code Status:
DNR
Total time spent on today's encounter was 52 minutes which included time spent in counseling the patient/family regarding diagnosis and treatment plan as listed above, goals of care, and symptom management. Case was discussed with nursing staff,
specialists, and care coordinators/case management. All labs and imaging personally reviewed by me. Remainder the time spent in detailed review of previous records, lab data, imaging, and other medical provider documentation.
Anticipated Discharge: > 48 hours
Subjective/Interval History
-
Date of Service: July 21, 2025
Patient still short of breath and on supplemental oxygen. She 'wants to go home'
Objective Data
-
Labs:
Laboratory Results
07/21/25
06:57
WBC 5.1
Hgb 10.1 L
Hct 31.0 L
Plt Count 212
Sodium 133 L
Potassium 4.3
Chloride 99
Carbon Dioxide 28
BUN 29 H
Creatinine 0.9
Glucose 154 H
Calcium 9.1
Vital Signs:
Vital Signs
Temp Pulse Resp BP Pulse Ox
97.4 F 70 12 107/68 98
07/21/25 07:00 07/21/25 09:04 07/21/25 07:00 07/21/25 09:04 07/21/25 10:08
I&O
07/20/25 07/21/25 07/22/25
06:59 06:59 06:59
Intake Total 630 / 630
Output Total 150 / 150
Balance 630 / 630 -150 / -150
[2025-07-21 10:52] VITALS: BP 107/54
--- NOTE | 2025-07-21 11:27 | W.PN.CARDCBS ---
Today's Communication / Plan
-
Increase Lasix to 60 mg IV twice daily
May consider eventual palliative care
Not sure she would agree to rehab as she was only there for a few hours before being readmitted
Hopefully will qualify for home oxygen
Impression / Plan
-
.
Primary [place] Roofer: Dr. Funes
Impression:
Presented 07/14/25 shortness of breath, weight gain, fatigue, and orthopnea, discharged 07/19/2025 after diuresing at least 5 pounds but re-presented from [facility] today, 07/20/2025, with shortness of breath
Acute on chronic heart failure mildly reduced EF, proBNP >62124 07/20, was 25,500 last admit 07/14/25
Severe aortic stenosis
Hyponatremia
UTI
Elevated troponin, peak 0.045
Paroxysmal atrial fibrillation
CM EF 40-45% Apr 2024
Abnormal stress test, patient has declined cardiac catheterization on multiple occasions as OP
h/o multiple ischemic strokes which have been felt likely to represent small vessel disease and atherosclerosis
Autonomic dysfunction/hypotension/orthostasis treated with midodrine as needed
Carotid stenosis, right s/p stent
Hypercholesterolemia
Type 2 diabetes with diabetic neuropathy
History of seizure disorder
Breast Ca with Radiation Therapy s/p Left Mastectomy
GERD/Hiatal Hernia
RLS
UTIs
Iron Deficiency
Congenital malformation of esophagus
Gait difficulty
Dysphagia
Former smoker
DNR
PSH: Hysterectomy /History of bowel resection/ Back surgery
Echo 05/15/2024: EF 40 to 45%, global hypokinesis, stage II diastolic dysfunction, MAC, mild MR, mild to moderate with peak/mean gradients 27/18 mmHg, KAYLEIGH 1.4 cm�, trace AR
ECHO 05/25/2024: EF 40 to 45%, apex, inferolateral, inferior and anterior perez are hypokinetic, appears stable compared to prior.
Echo 09/08/2024: EF 40-45%, inferior, inferolateral, anterior, and apical hypokinesis. Mild MS, MAC, mild MR, moderate to severe (57/32 mmHg), mild to moderate TR, mild pulmonary hypertension PASP 43 mmHg
Echo 05/23/2025: LVEF 40 to 45%, normal RV size and function, severe , KAYLEIGH 0.6 cm�, peak and mean AV gradients of 46 and 27 mmHg, mild MS, mild MR, mild TR, PAP 45 mmHg
Plan:
She has not lost weight on current diuretic dose
Will increase to 60 IV twice daily
Unfortunately with her she is high risk for recurrent admit for HF
Family is interested in palliative care and possibly hospice but patient wants to continue current care
UTI tx per primary service
Mild troponin elevation, 0.044, likely nonischemic myocardial injury in setting of hypoxia. Patient denies chest pain. EKG normal sinus rhythm and unchanged from baseline
Discussed with daughter at bedside as well as primary service and patient's primary contract clerk automobile
Not sure she would agree to rehab as she was only there for a few hours before being readmitted
Hopefully will qualify for home oxygen
HPI: 89-year-old female well-known to our service recently discharged from the hospital June 16, 2025 with acute on chronic heart failure with mildly reduced ejection fraction and severe aortic stenosis returns with more shortness of breath,
weight gain, fatigue, and orthopnea. The patient lives at home with her daughter. She has had increased fatigue and symptoms for the past 3 to 4 days. She denies any lower extremity edema but does have abdominal fullness. Her baseline weight is
around 133 her weight today was up to 140 pounds. She denies any dietary indiscretion. She has no chest pains. She has no palpitations or syncope. She has no bleeding or falls. Her energy is slowly declining and feeding. She is DNR. She has
declined cardiac cath and evaluation for her aortic stenosis in the past.
Progress Note - [place] Roofer
Subjective
Date of Service: July 21, 2025
She complains of weakness
Objective
Labs:
07/21/25 06:57
07/21/25 06:57
Labs
Hgb 10.1 g/dL (12.0-16.0) L 07/21/25 06:57
Hct 31.0 % (37.0-47.0) L 07/21/25 06:57
Plt Count 212 10^3/uL (130-400) 07/21/25 06:57
Sodium 133 mmol/L (135-145) L 07/21/25 06:57
Potassium 4.3 mmol/L (3.5-5.1) 07/21/25 06:57
BUN 29 mg/dl (7-17) H 07/21/25 06:57
Creatinine 0.9 mg/dL (0.6-1.0) 07/21/25 06:57
Glucose 154 mg/dl (70-99) H 07/21/25 06:57
Troponins
07/20/25
04:58
Troponin I 0.044 H*
Vital Signs and I&O:
Vital Signs
Temp Pulse Resp BP Pulse Ox
98.2 F 66 18 107/54 98
07/21/25 10:52 07/21/25 10:52 07/21/25 10:52 07/21/25 10:52 07/21/25 10:52
Vital Signs
Temp Pulse Resp BP Pulse Ox
98.2 F 66 18 107/54 98
07/21/25 10:52 07/21/25 10:52 07/21/25 10:52 07/21/25 10:52 07/21/25 10:52
Intake & Output
07/19/25 07/20/25 07/21/25 07/22/25
06:59 06:59 06:59 06:59
Intake Total 630 / 630
Output Total 150 / 150
Balance 630 / 630 -150 / -150
Physical Exam
Physical Exam
General: Well developed, well nourished in NAD.
Neck: Supple, no JVD, HJR, carotids +2 B/L, no bruits bilaterally.
Heart: Non displaced PMI, RRR, no murmurs, No S3, S4, no rubs.
Lungs: Scattered rhonchi
Extremities: No clubbing, cyanosis or edema bilaterally.
Neuro: Grossly nonfocal, awake, alert and oriented x3.
[2025-07-21 11:43] VITALS: BMI 21.2
[2025-07-21 11:56] LABS: Glucose - Point of Care 186 mg/dl (70-99)
[2025-07-21] MEDS: LIDOCAINE 4% PATCH 1 PATCH TOPICAL (13:45)
[2025-07-21 14:34] VITALS: BP 115/60
[2025-07-21] MEDS: TYLENOL 650 MG PO (15:12)
[2025-07-21] MEDS: BENTYL 10 MG PO (15:38)
--- NOTE | 2025-07-21 16:34 | PTCARENOTE ---
Pt AAO x3; anxious/forgetful; PLATINUM. BREAUX; OOB to BSC/chair with assistance/walker, VSS. Telemetry:NSR. Maintained on nc 2 lpm- pulse ox 99%; attempting to wean O2 but pt states she is 'SOB'; no resp difficulty noted. Abd soft, rounded, rosalind PO
well, pt c/o lower abd 'pain'- given PO Bentyl as ordered. Pt reports BM x1 earlier today. Voids on BSC without difficulty. Resting in chair at present; daughter at bedside. Will continue to monitor.
[2025-07-21 16:52] LABS: Glucose - Point of Care 130 mg/dl (70-99)
[2025-07-21] MEDS: MYLICON 80 MG PO (16:53)
[2025-07-21] MEDS: NOVOLOG FLEXPEN-LOW RESISTANCE SC (18:05)
[2025-07-21] MEDS: REQUIP 0.5 MG PO (18:15)
[2025-07-21 19:40] VITALS: BP 96/44
[2025-07-21] MEDS: MELATONIN 5 MG PO (20:54)
[2025-07-21] MEDS: REMOVE LIDOCAINE PATCH 1 PATCH REMOVE (20:54)
[2025-07-21 21:03] LABS: Glucose - Point of Care 179 mg/dl (70-99)
[2025-07-21 23:46] VITALS: BP 104/52
[2025-07-22] VITALS (8 sets, daily range): BP systolic 103–126; BP diastolic 46–64; PULSE 64–65; O2SAT 98; BMI 20.6
[2025-07-22 07:39] LABS: Blood Urea Nitrogen 26 mg/dl (7-17); Calcium 9.0 mg/dl (8.4-10.2); Carbon Dioxide 27 mmol/L (22-30); Chloride 97 mmol/L (98-107); Estimated Creatinine Clearance 43 ml/min; Glucose 128 mg/dl (70-99); Magnesium 1.9 mg/dl (1.6-2.3); Potassium 3.8 mmol/L (3.5-5.1); Sodium 133 mmol/L (135-145); eGFR > 60.00
[2025-07-22 07:59] LABS: Glucose - Point of Care 134 mg/dl (70-99)
[2025-07-22] MEDS: NOVOLOG FLEXPEN-LOW RESISTANCE SC (08:28)
[2025-07-22] MEDS: LASIX 60 MG IV ×2 (08:47→20:35)
[2025-07-22] MEDS: VITAMIN B-12 1000 MCG PO (08:47)
[2025-07-22] MEDS: ELIQUIS 2.5 MG PO ×2 (08:48→20:34)
[2025-07-22] MEDS: LIDOCAINE 4% PATCH 1 PATCH TOPICAL (08:48)
[2025-07-22] MEDS: VISBIOME 1 CAP PO (08:48)
[2025-07-22] MEDS: LANTUS 0.15 UNITS SC (08:48)
[2025-07-22] MEDS: PROTONIX 40 MG PO (08:48)
[2025-07-22] MEDS: PACERONE 200 MG PO (08:48)
[2025-07-22] MEDS: MAGNESIUM OXIDE 400 MG PO ×2 (08:48→20:33)
[2025-07-22] MEDS: SENOKOT 8.6 MG PO ×2 (08:48→20:34)
[2025-07-22] MEDS: MIRALAX 17 GRAMS PO (08:49)
[2025-07-22] MEDS: ZOSTRIX-HP 0.075% CREAM TOPICAL ×4 (08:49→22:44)
[2025-07-22] MEDS: STERILE WATER FOR INJECTION 10 ML IV (10:03)
[2025-07-22] MEDS: ROCEPHIN 1000 MG IV (10:03)
--- NOTE | 2025-07-22 11:00 | W.PN.HOSP.TC ---
Today's Communication/Plan
-
IV diuresis
Assessment / Plan
Assessment / Plan
Physical exam:
General: Acute on chronically ill
HEENT: Normocephalic, Atraumatic and Moist Mucous Membranes
Respiratory: Clear to auscultation bilaterally; Negative Wheezes or Rhonchi
Cardiac: Regular Rhythm and S1/S2, systolic murmur
GI: Soft, Nontender and Nondistended
Musculoskeletal: No Clubbing, No Cyanosis. Bilateral lower extremity edema improving.
Neuro: Awake, Alert and Oriented, no neurological deficits
Psych: Calm
Echo 05/23:
1. Normal left ventricular size and mildly reduced LV function. Ejection fraction is 40-45% by visual assesment.
2. Mild global hypokinesis.
3. Right ventricular size and systolic function are within normal limits.
4. Indexed left atrial volume is moderately abnormal (42-48 ml/m2).
5. Mildly dilated right atrium.
6. Severe aortic valve stenosis. Aortic valve area = 0.66 cm².
7. Mild mitral valve stenosis. mild mitral valve regurgitation.
8. Mild tricuspid regurgitation. Estimated pulmonary artery pressure of 45 mmHg assuming a right atrial pressure of 3 mmHg.
9. Compared to a prior transthoracic echocardiogram study from 09/08/24 There is little significant change.
A/P:
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
Continue IV Lasix 60 mg twice a day
Follow-up daily weights and ins and outs
Cardiology consult and follow-up appreciated
GDMT limited by hypotension. Not a candidate for SGLT2 due to recurrent UTIs
Echo done 04/2025 with LVEF = 40-45% and severe .
Patient has declined cardiac intervention such as cardiac cath and evaluation for aortic stenosis as well. Palliative care consulted (they said no need to see again) and hospice-deferred to patient and family for final decision.
Discussed with family at length prior.
PT OT
Acute respiratory insufficiency:
Wean oxygen today
Pulse ox looks good at rest but assess for home oxygen needs
Abdominal pain:
Likely related to hiatal hernia and constipation but cannot rule out other intra-abdominal pathology.
Discussed about doing a CT of the abdomen yesterday but patient and family declined. She is currently doing better clinically today so I agree with holding off on further images.
Continue PPI and simethicone as needed.
History of recurrent UTI and recurrent E. coli UTI:
Stop Rocephin and switch to oral Bactrim for short course if anything.
On suppressive antibiotics, methenamine 1 g p.o. twice a day--> hold and resume when finish this course.
Constipation:
Continue senna
Orthostatic hypotension:
Monitor blood pressure
Consider midodrine if drops but hold off given heart failure
Anemia:
No signs of active bleeding
Last hemoglobin 10.1 yesterday. Can recheck CBC in a.m.
Chronic Hyponatremia:
Sodium up to 133 today
Continue oral intake restriction
ASCVD Abnormal Troponin:
Due to demand mismatch ischemia
Paroxysmal Atrial Fibrillation:
Continue antiarrhythmic, amiodarone 200 mg p.o. daily
Continue anticoagulation, Eliquis 2.5 mg p.o. twice a day
DM-II:
Continue insulin sliding scale
Hgb A1C was 7% in 04/2025.
RLS/Anxiety / Depression:
Continue current medications including Requip and PRN Xanax.
GERD:
On PPI
DVT Prophylaxis:
On Eliquis
Code Status:
DNR
Total time spent on today's encounter was 35 minutes which included time spent in counseling the patient/family regarding diagnosis and treatment plan as listed above, goals of care, and symptom management. Case was discussed with nursing staff,
specialists, and care coordinators/case management. All labs and imaging personally reviewed by me. Remainder the time spent in detailed review of previous records, lab data, imaging, and other medical provider documentation.
Anticipated Discharge: 24 - 48 hours
Subjective/Interval History
-
Date of Service: July 22, 2025
Patient feels better today. No shortness of breath. No chest pain.
Objective Data
-
Labs:
Laboratory Results
07/22/25
05:40
Sodium 133 L
Potassium 3.8
Chloride 97 L
Carbon Dioxide 27
BUN 26 H
Creatinine 0.8
Glucose 128 H
Calcium 9.0
Vital Signs:
Vital Signs
Temp Pulse Resp BP Pulse Ox
97.9 F 67 20 120/60 96
07/22/25 07:00 07/22/25 07:00 07/22/25 07:00 07/22/25 07:00 07/22/25 07:00
I&O
07/21/25 07/22/25 07/23/25
06:59 06:59 06:59
Intake Total 630 / 630 780 / 780
Output Total 1150 / 1150
Balance 630 / 630 -370 / -370
--- NOTE | 2025-07-22 11:34 | W.PN.CARDCBS ---
Today's Communication / Plan
-
Continue IV Lasix
Consider home oxygen
Family wants palliative care but patient wants to continue current treatment plan
Impression / Plan
-
.
Primary Speech Language Pathology Assistant: Dr. Funes
Impression:
Presented 07/14/25 shortness of breath, weight gain, fatigue, and orthopnea, discharged 07/19/2025 after diuresing at least 5 pounds but re-presented from [facility] today, 07/20/2025, with shortness of breath
Acute on chronic heart failure mildly reduced EF, proBNP >45465 07/20, was 25,500 last admit 07/14/25
Severe aortic stenosis
Hyponatremia
UTI
Elevated troponin, peak 0.045
Paroxysmal atrial fibrillation
CM EF 40-45% Apr 2024
Abnormal stress test, patient has declined cardiac catheterization on multiple occasions as OP
h/o multiple ischemic strokes which have been felt likely to represent small vessel disease and atherosclerosis
Autonomic dysfunction/hypotension/orthostasis treated with midodrine as needed
Carotid stenosis, right s/p stent
Hypercholesterolemia
Type 2 diabetes with diabetic neuropathy
History of seizure disorder
Breast Ca with Radiation Therapy s/p Left Mastectomy
GERD/Hiatal Hernia
RLS
UTIs
Iron Deficiency
Congenital malformation of esophagus
Gait difficulty
Dysphagia
Former smoker
DNR
PSH: Hysterectomy /History of bowel resection/ Back surgery
Echo 05/15/2024: EF 40 to 45%, global hypokinesis, stage II diastolic dysfunction, MAC, mild MR, mild to moderate with peak/mean gradients 27/18 mmHg, KAYLEIGH 1.4 cm�, trace AR
ECHO 05/25/2024: EF 40 to 45%, apex, inferolateral, inferior and anterior perez are hypokinetic, appears stable compared to prior.
Echo 09/08/2024: EF 40-45%, inferior, inferolateral, anterior, and apical hypokinesis. Mild MS, MAC, mild MR, moderate to severe (57/32 mmHg), mild to moderate TR, mild pulmonary hypertension PASP 43 mmHg
Echo 05/23/2025: LVEF 40 to 45%, normal RV size and function, severe , KAYLEIGH 0.6 cm�, peak and mean AV gradients of 46 and 27 mmHg, mild MS, mild MR, mild TR, PAP 45 mmHg
Plan:
Weight is down 4 pounds on higher dose of Lasix
She has been on room air as well
Will continue IV Lasix
Family is interested in palliative care but patient wants to continue current therapy
UTI tx per primary service
Mild troponin elevation, 0.044, likely nonischemic myocardial injury in setting of hypoxia. Patient denies chest pain. EKG normal sinus rhythm and unchanged from baseline
Not sure she would agree to rehab as she was only there for a few hours before being readmitted
Hopefully will qualify for home oxygen
HPI: 89-year-old female well-known to our service recently discharged from the hospital June 16, 2025 with acute on chronic heart failure with mildly reduced ejection fraction and severe aortic stenosis returns with more shortness of breath,
weight gain, fatigue, and orthopnea. The patient lives at home with her daughter. She has had increased fatigue and symptoms for the past 3 to 4 days. She denies any lower extremity edema but does have abdominal fullness. Her baseline weight is
around 133 her weight today was up to 140 pounds. She denies any dietary indiscretion. She has no chest pains. She has no palpitations or syncope. She has no bleeding or falls. Her energy is slowly declining and feeding. She is DNR. She has
declined cardiac cath and evaluation for her aortic stenosis in the past.
Progress Note - Speech Language Pathology Assistant
Subjective
Date of Service: July 22, 2025
No complaints. Feels better. Sitting in chair
Objective
Labs:
07/21/25 06:57
07/22/25 05:40
Labs
Hgb 10.1 g/dL (12.0-16.0) L 07/21/25 06:57
Hct 31.0 % (37.0-47.0) L 07/21/25 06:57
Plt Count 212 10^3/uL (130-400) 07/21/25 06:57
Sodium 133 mmol/L (135-145) L 07/22/25 05:40
Potassium 3.8 mmol/L (3.5-5.1) 07/22/25 05:40
BUN 26 mg/dl (7-17) H 07/22/25 05:40
Creatinine 0.8 mg/dL (0.6-1.0) 07/22/25 05:40
Glucose 128 mg/dl (70-99) H 07/22/25 05:40
Troponins
07/20/25
04:58
Troponin I 0.044 H*
Vital Signs and I&O:
Vital Signs
Temp Pulse Resp BP Pulse Ox
97.9 F 67 20 120/60 96
07/22/25 07:00 07/22/25 07:00 07/22/25 07:00 07/22/25 07:00 07/22/25 08:50
Vital Signs
Temp Pulse Resp BP Pulse Ox
97.9 F 67 20 120/60 96
07/22/25 07:00 07/22/25 07:00 07/22/25 07:00 07/22/25 07:00 07/22/25 08:50
Intake & Output
07/20/25 07/21/25 07/22/25 07/23/25
06:59 06:59 06:59 06:59
Intake Total 630 / 630 780 / 780
Output Total 1150 / 1150 400 / 400
Balance 630 / 630 -370 / -370 -400 / -400
Physical Exam
Physical Exam
General: Well developed, well nourished in NAD.
Neck: Supple, no JVD, HJR, carotids +2 B/L, no bruits bilaterally.
Heart: Non displaced PMI, RRR, no murmurs, No S3, S4, no rubs.
Lungs: Scattered rhonchi at the bases
Extremities: No clubbing, cyanosis or edema bilaterally.
Neuro: Grossly nonfocal, awake, alert and oriented x3.
[2025-07-22] MEDS: REQUIP 0.25 MG PO (12:06)
[2025-07-22 12:17] LABS: Glucose - Point of Care 212 mg/dl (70-99)
[2025-07-22] MEDS: NOVOLOG FLEXPEN-LOW RESISTANCE 2 UNITS SC (12:42)
[2025-07-22 17:11] LABS: Glucose - Point of Care 170 mg/dl (70-99)
[2025-07-22] MEDS: REQUIP 0.5 MG PO (17:40)
[2025-07-22] MEDS: NOVOLOG FLEXPEN-LOW RESISTANCE 1 UNITS SC (17:57)
[2025-07-22] MEDS: REMOVE LIDOCAINE PATCH 1 PATCH REMOVE (20:34)
[2025-07-22] MEDS: MELATONIN 5 MG PO (20:39)
[2025-07-23] VITALS (7 sets, daily range): BP systolic 110–136; BP diastolic 48–66; PULSE 69; O2SAT 95; BMI 20.2
[2025-07-23] MEDS: TYLENOL 650 MG PO ×2 (04:45→21:32)
[2025-07-23] MEDS: REQUIP 0.5 MG PO ×2 (06:38→17:07)
[2025-07-23 08:11] LABS: Glucose - Point of Care 174 mg/dl (70-99)
[2025-07-23 08:44] LABS: Hematocrit 33.6 % (37.0-47.0); Hemoglobin 10.7 g/dL (12.0-16.0); Mean Corp Hgb Conc. 31.8 g/dL (33.0-37.0); Mean Corpuscular Volume 94.6 fL (81.0-99.0); Platelet Count 209 10^3/uL (130-400); Red Cell Dist. Width 15.3 % (11.5-14.5)
[2025-07-23] MEDS: PROTONIX 40 MG PO (08:59)
[2025-07-23] MEDS: VITAMIN B-12 1000 MCG PO (08:59)
[2025-07-23] MEDS: MIRALAX 17 GRAMS PO (08:59)
[2025-07-23] MEDS: LIDOCAINE 4% PATCH 1 PATCH TOPICAL (08:59)
[2025-07-23] MEDS: MAGNESIUM OXIDE 400 MG PO ×2 (08:59→19:34)
[2025-07-23] MEDS: ELIQUIS 2.5 MG PO ×2 (08:59→19:34)
[2025-07-23] MEDS: LANTUS 0.15 UNITS SC (09:00)
[2025-07-23] MEDS: LASIX 60 MG IV (09:00)
[2025-07-23] MEDS: SENOKOT 8.6 MG PO ×2 (09:00→19:34)
[2025-07-23] MEDS: PACERONE 200 MG PO (09:00)
[2025-07-23] MEDS: VISBIOME 1 CAP PO (09:00)
[2025-07-23] MEDS: NOVOLOG FLEXPEN-LOW RESISTANCE 1 UNITS SC ×3 (09:01→17:06)
[2025-07-23] MEDS: ZOSTRIX-HP 0.075% CREAM TOPICAL ×4 (09:02→19:35)
[2025-07-23 09:27] LABS: Blood Urea Nitrogen 25 mg/dl (7-17); Calcium 9.2 mg/dl (8.4-10.2); Carbon Dioxide 23 mmol/L (22-30); Chloride 98 mmol/L (98-107); Estimated Creatinine Clearance 43 ml/min; Glucose 251 mg/dl (70-99); Potassium 4.0 mmol/L (3.5-5.1); Sodium 129 mmol/L (135-145); eGFR > 60.00
[2025-07-23 12:06] LABS: Glucose - Point of Care 193 mg/dl (70-99)
--- NOTE | 2025-07-23 12:26 | W.PN.HOSP.TC ---
Addendum entered and electronically signed by Greyson Sarkar MD 07/23/25 15:30:
Acute hypoxic respiratory failure
Addendum entered and electronically signed by Greyson Sarkar MD 07/23/25 13:42:
Medically cleared for discharge. Case management aware.
Original Note:
Today's Communication/Plan
-
see plan
Assessment / Plan
Assessment / Plan
Gen: NAD, AAOx3.
Eyes: EOMI, PERRLA, no scleral icterus.
Neck: supple.
CV: RRR, +S1/S2, no m/r/g.
Resp: CTAB, no rales, wheezes, or rhonchi.
Abd: +BS, soft, NT, ND
Skin: No rashes.
Neuro: CN 2-12 intact, non-focal.
Psych: Normal mood and affect.
Echo 05/23:
1. Normal left ventricular size and mildly reduced LV function. Ejection fraction is 40-45% by visual assesment.
2. Mild global hypokinesis.
3. Right ventricular size and systolic function are within normal limits.
4. Indexed left atrial volume is moderately abnormal (42-48 ml/m2).
5. Mildly dilated right atrium.
6. Severe aortic valve stenosis. Aortic valve area = 0.66 cm².
7. Mild mitral valve stenosis. mild mitral valve regurgitation.
8. Mild tricuspid regurgitation. Estimated pulmonary artery pressure of 45 mmHg assuming a right atrial pressure of 3 mmHg.
9. Compared to a prior transthoracic echocardiogram study from 09/08/24 There is little significant change.
Acute on Chronic HFmrEF:
-echo done 04/2025 with LVEF = 40-45% and severe
-with severe
-cont IV Lasix, daily wts, I/Os
-cards following
-GDMT limited by hypotension, not a candidate for SGLT2 due to recurrent UTIs
-Patient has declined cardiac intervention such as cardiac cath and evaluation for aortic stenosis as well. Palliative care consulted (they said no need to see again) and hospice. Has been discussed with family prior.
-acute hypoxic respiratory insufficiency due to CHF, currently on 2L NC O2, wean as tolerated
-discussed with cardiology, futher discussions after they round
Abdominal pain:
-likely related to hiatal hernia and constipation but cannot rule out other intra-abdominal pathology
-Prior provider discussed doing a CT A/P but patient and family declined. Does not complain of abd pain today.
-cont PPI, simethicone PRN
h/o recurrent UTI:
-was on Rocephin (received 3 days Rocephin), now on PO Bactrim
-afebrile, no leukocytosis
-Dr. Barber's d/c summary from 07/19 reviewed and, at that time, pt was discharged on 3 days Bactrim
-stop Bactrim, resume [employer] suppressive methenamine
Other problems:
Constipation:
Anemia of chronic disease: Hb stable
Orthostatic hypotension, monitor
Chronic Hyponatremia: Change FR to 1200cc/day
CAD
Elevated trop due to nonischemic myocardial injury
Paroxysmal Atrial Fibrillation: cont Amio/Eliquis
DM2: cont Lantus/SSI/accuchecks
RLS: cont Requip
Anxiety/Depression: cont Xanax PRN
GERD: cont PPI
DNR/Eliquis
Total time spent on today's encounter was 50 minutes which included time spent in counseling the patient/family regarding diagnosis and treatment plan as listed above, goals of care, and symptom management. Case was discussed with nursing staff,
specialists, and care coordinators/case management. All labs and imaging personally reviewed by me. Remainder the time spent in detailed review of previous records, lab data, imaging, and other medical provider documentation.
Anticipated Discharge: Within 24 hours
Subjective/Interval History
-
Date of Service: July 23, 2025
Currently denies SOB. Pt wants to be discharged.
Objective Data
-
Labs:
Laboratory Results
07/23/25
08:28
WBC 5.5
Hgb 10.7 L
Hct 33.6 L
Plt Count 209
Sodium 129 L
Potassium 4.0
Chloride 98
Carbon Dioxide 23
BUN 25 H
Creatinine 0.8
Glucose 251 H
Calcium 9.2
Vital Signs:
Vital Signs
Temp Pulse Resp BP Pulse Ox
97.8 F 69 18 136/66 98
07/23/25 11:58 07/23/25 11:58 07/23/25 11:58 07/23/25 11:58 07/23/25 11:58
I&O
07/22/25 07/23/25 07/24/25
06:59 06:59 06:59
Intake Total 780 / 780 720 / 720 240 / 240
Output Total 1150 / 1150 2550 / 2550 300 / 300
Balance -370 / -370 -1830 / -1830 -60 / -60
--- NOTE | 2025-07-23 13:57 | CM ---
Addendum entered by Sd Romero 07/23/25 14:36:
Per hospice, family will not be moving forward w/ hospice at this time. Family would like for patient to return to [facility] to resume rehab
Spoke w/ Codie/[facility], will have a bed for patient tomorrow
Confirmed w/ patient's daughter, Parvin. Parvin stated she will transport patient tomorrow
CM will get auth tomorrow
Plan: D/c to [facility] tomorrow
Original Note:
Chart reviewed. Patient medically stable for d/c. Patient admitted from [facility] where she was receiving short term rehab.
Spoke w/ [facility], will call CM back once she follows up w/ the family. Per hospice note on Wednesday, information was provided to the family w/ intentions to follow up today
Patient will need insurance auth if family wants patient to return to [facility] to resume rehab
Plan: SNF vs hospice. CM awaiting call back from Hospice on family's decision
--- NOTE | 2025-07-23 14:23 | HOSPNOTE ---
Spoke with daughter and the plan is to return to [facility] for rehab the family does not wish for hospice at this time. We will sign off, the daughter has my direct contact if and when hospice is needed.
--- NOTE | 2025-07-23 15:07 | W.PN.CARDCBS ---
Addendum entered and electronically signed by Mickey Elena MD 07/23/25 18:12:
89-year-old woman with acute on chronic heart failure and mildly reduced EF in the setting of severe aortic stenosis. Not interested in TAVR, currently a DNR. Previously on hospice.
PMH: PAF, heart failure with mildly reduced EF, severe aortic stenosis, hyponatremia, history of multiple CVAs, autonomic dysfunction, diabetes, seizures, breast cancer with history of radiation and mastectomy to the left, GERD, right carotid stent,
hypercholesterolemia, RLS
Current meds: Amiodarone 200 a day, apixaban 2.5 twice daily, metformin, insulin glargine, furosemide 60 IV twice daily
136/66, pulse 69, respiratory rate 18, afebrile, weight is 56.7 kg, unchanged, head neck exam unremarkable, mild murmur lungs clear, JVD okay no edema
Hemoglobin 10.7, platelets 209, sodium is 129, BUN and creatinine 25 and 0.8
ECG: Sinus rhythm, IVCD with ST and T changes, long QT, PACs
Impression:
Acute on chronic heart failure with mildly reduced EF
Severe aortic stenosis, has refused intervention
Hyponatremia
History of paroxysmal atrial fibrillation
History of ischemic stroke
Autonomic dysfunction/orthostasis
History of right carotid stent
Hypercholesterolemia
Diabetes/diabetic neuropathy
History of seizure disorder
Breast cancer/left mastectomy
GERD
Restless leg
Other diagnoses as noted below. Reviewed in detail and agree, unless otherwise specified
Plan:
She seems stable, though at this point with underlying aortic stenosis for which intervention is not planned, it is only a matter time before she requires readmission.
She had previously been in hospice but at this point is not not ready to change goals of care. Would favor discharge on furosemide 80 mg a day. She had been on 60 mg daily.
She cannot afford an SGLT2 antagonist and has history of UTIs.
Suggest spironolactone 12.5 mg daily.
No objections to discharge from my standpoint. We will arrange for outpatient follow-up.
Original Note:
Today's Communication / Plan
-
transition to oral diuretics
d/c to [facility] in am
Impression / Plan
-
.
Primary Internal Recruiter: Dr. Funes
Impression:
Presented 07/14/25 shortness of breath, weight gain, fatigue, and orthopnea, discharged 07/19/2025 after diuresing at least 5 pounds but re-presented from [facility] 07/20/2025, with shortness of breath
Acute on chronic heart failure mildly reduced EF, proBNP >76265 07/20, was 25,500 last admit 07/14/25
Severe aortic stenosis
Hyponatremia
UTI
Elevated troponin, peak 0.045
Paroxysmal atrial fibrillation
CM EF 40-45% Apr 2024
Abnormal stress test, patient has declined cardiac catheterization on multiple occasions as OP
h/o multiple ischemic strokes which have been felt likely to represent small vessel disease and atherosclerosis
Autonomic dysfunction/hypotension/orthostasis treated with midodrine as needed
Carotid stenosis, right s/p stent
Hypercholesterolemia
Type 2 diabetes with diabetic neuropathy
History of seizure disorder
Breast Ca with Radiation Therapy s/p Left Mastectomy
GERD/Hiatal Hernia
RLS
UTIs
Iron Deficiency
Congenital malformation of esophagus
Gait difficulty
Dysphagia
Former smoker
DNR
PSH: Hysterectomy /History of bowel resection/ Back surgery
Echo 05/15/2024: EF 40 to 45%, global hypokinesis, stage II diastolic dysfunction, MAC, mild MR, mild to moderate with peak/mean gradients 27/18 mmHg, KAYLEIGH 1.4 cm�, trace AR
ECHO 05/25/2024: EF 40 to 45%, apex, inferolateral, inferior and anterior perez are hypokinetic, appears stable compared to prior.
Echo 09/08/2024: EF 40-45%, inferior, inferolateral, anterior, and apical hypokinesis. Mild MS, MAC, mild MR, moderate to severe (57/32 mmHg), mild to moderate TR, mild pulmonary hypertension PASP 43 mmHg
Echo 05/23/2025: LVEF 40 to 45%, normal RV size and function, severe , KAYLEIGH 0.6 cm�, peak and mean AV gradients of 46 and 27 mmHg, mild MS, mild MR, mild TR, PAP 45 mmHg
Plan:
Weight is down 5 pounds since admission. Has been on higher dose of Lasix at 60 mg IV BID this admission
Continues on 2L NC, sats 97-100%. Wean O2 as tolerated. May need to consider home O2
Family/pt have decided not to pursue hospice at this time, pt would like to return to [facility] for rehab and plan for discharge to there tomorrow 07/24.
Need to transition to oral diuretics. Last admission discharged on Lasix 60 mg daily but returned after 1 day. Renal function has been stable, BUN/creatinine 25/0.8, 07/23.
UTI tx per primary service
Mild troponin elevation, 0.044, likely nonischemic myocardial injury in setting of hypoxia. Patient denies chest pain. EKG normal sinus rhythm and unchanged from baseline
HPI: 89-year-old female well-known to our service recently discharged from the hospital June 16, 2025 with acute on chronic heart failure with mildly reduced ejection fraction and severe aortic stenosis returns with more shortness of breath,
weight gain, fatigue, and orthopnea. The patient lives at home with her daughter. She has had increased fatigue and symptoms for the past 3 to 4 days. She denies any lower extremity edema but does have abdominal fullness. Her baseline weight is
around 133 her weight today was up to 140 pounds. She denies any dietary indiscretion. She has no chest pains. She has no palpitations or syncope. She has no bleeding or falls. Her energy is slowly declining and feeding. She is DNR. She has
declined cardiac cath and evaluation for her aortic stenosis in the past.
Progress Note - Internal Recruiter
Subjective
Date of Service: July 23, 2025
asking to be discharged
SOB improved
remains on O2
Objective
Labs:
07/23/25 08:28
07/23/25 08:28
Labs
Hgb 10.7 g/dL (12.0-16.0) L 07/23/25 08:28
Hct 33.6 % (37.0-47.0) L 07/23/25 08:28
Plt Count 209 10^3/uL (130-400) 07/23/25 08:28
Sodium 129 mmol/L (135-145) L 07/23/25 08:
Potassium 4.0 mmol/L (3.5-5.1) 07/23/25 08:
BUN 25 mg/dl (7-17) H 07/23/25 08:28
Creatinine 0.8 mg/dL (0.6-1.0) 07/23/25 08:
Glucose 251 mg/dl (70-99) H 07/23/25 08:28
Vital Signs and I&O:
Vital Signs
Temp Pulse Resp BP Pulse Ox
97.8 F 69 18 136/66 98
07/23/25 11:58 07/23/25 11:58 07/23/25 11:58 07/23/25 11:58 07/23/25 11:58
Vital Signs
Temp Pulse Resp BP Pulse Ox
97.8 F 69 18 136/66 98
07/23/25 11:58 07/23/25 11:58 07/23/25 11:58 07/23/25 11:58 07/23/25 11:58
Intake & Output
07/21/25 07/22/25 07/23/25 07/24/25
06:59 06:59 06:59 06:59
Intake Total 630 / 630 780 / 780 720 / 720 240 / 240
Output Total 1150 / 1150 2550 / 2550 300 / 300
Balance 630 / 630 -370 / -370 -1830 / -1830 -60 / -60
Physical Exam
Physical Exam
GEN: No distress, awake, Ox3
HEENT: supple, anicteric, mmm
LUNGS: CTA, no wheezes/rales
CV: Reg, S1/S2, 3/6 syst MYNOR
ABD: soft, BS+, NT/ND
EXT: No edema
NEURO: Gross non-focal
SKIN: No rash
--- NOTE | 2025-07-23 15:12 | PN.CDI ---
CDI
- -
CDI:
Physician Documentation Request
Admit Date: 07/20/25 06:59
Dear Doctor Antonina,
Please review the following and provide your response in the progress notes.
Clinical Indicators:
Pt admitted with CHFrEF exacerbation/
EMS record, ' ..It was noticed that the patient started to have increased signs of difficulty breathing due to puffing out her breaths on arrival to [facility].O2 sat remained 97% on 15L NRB ...on NC appearing to have increased work of breathing...'
Staff sate that patient started complaining of SOB around 0200..They then checked her sangeetha signs and stat she was satting in the 70s on 3L NC ..'
Documented per H&P, ' On arrival at the senior living the patient reports severe dyspnea on exertion. She reports that she felt short of breath anytime she tried to move. She also felt like she could not walk due to weakness in the legs. She
denies feeling lightheaded or dizzy....She was discharged on oxygen and patient had to be placed on 4 L to maintain a sat of 95% now....Pulse was 72 regular and she was satting 94% on 5 L... On exam she does have bilateral wheezing consistent with
pulmonary edema. She is currently satting 95% on 4 L nasal cannula. ...'
Selected Entries
07/20/25
03:45 07/20/25
04:14 07/20/25
04:15
Resp Rate 31 30 27
Nasal Cannula flow liters per minute 6
07/20/25
04:21 07/20/25
05:45 07/20/25
09:01
Resp Rate 28
Nasal Cannula flow liters per minute 2 4
07/20/25
09:04
Nasal Cannula flow liters per minute 4
Clarify which of the following accurately represents the patient's respiratory status:
Acute Hypoxic respiratory failure
Hypoxia only
Other ( please specify)
Additional information for Respiratory Failure:
Recognized criteria for Respiratory Failure (Source: Jean Claude Gallardo. 2019 August 16.
Documentation tips: Acute Respiratory Failure, The Hospitalist.)
ABGs: (1 or more) Symptoms Please indicate type if known
1. p)2 <60 or RA SPO2 <91% on RA 1. Tachypnea, SOB, dyspnea Hypoxic
2. pCO2 >45 and pH <7.35 2. Use of accessory muscles Hypercapnic
3. pO2 decrease of pCO2 increase by 3. Pallor or cyanosis Hypoxic and Hypercapnic
10 mmHg from baseline if known 4. Anxiety or restlessness Unable to determine
4. P/F Ratio (pO2/FiO2)less than 300 5. Unable to speak in full sentences
Use of terms such as suspected, likely, concern for, or probable (associated with a specific diagnosis that is being evaluated, monitored, or treated as if it exists) are acceptable and can be coded in the inpatient setting, when documented at the
time of discharge.
Thank you,
Danitza Gonzalez RN
CDI Specialist
[facility]
Please use your independent medical judgment in providing your response.
[2025-07-23 17:02] LABS: Glucose - Point of Care 176 mg/dl (70-99)
[2025-07-23] MEDS: ALDACTONE 12.5 MG PO (18:17)
[2025-07-23] MEDS: LASIX IV (19:33)
[2025-07-23] MEDS: REMOVE LIDOCAINE PATCH REMOVE (19:34)
[2025-07-23] MEDS: HIPREX 1 GRAM PO (19:34)
[2025-07-23] MEDS: MELATONIN 5 MG PO (19:35)
[2025-07-23] MEDS: LASIX 40 MG IV (19:40)
[2025-07-23 21:29] LABS: Glucose - Point of Care 192 mg/dl (70-99)
[2025-07-23] MEDS: XANAX 0.25 MG PO (21:32)
[2025-07-24 03:22] VITALS: BP 120/63
[2025-07-24 05:11] VITALS: BMI 20.3
[2025-07-24 07:35] VITALS: BP 111/58
[2025-07-24 08:16] LABS: Glucose - Point of Care 136 mg/dl (70-99)
[2025-07-24] MEDS: NOVOLOG FLEXPEN-LOW RESISTANCE SC (08:17)
[2025-07-24] MEDS: MIRALAX 17 GRAMS PO (08:28)
[2025-07-24] MEDS: LIDOCAINE 4% PATCH 1 PATCH TOPICAL (08:28)
[2025-07-24] MEDS: LANTUS 0.15 UNITS SC (08:29)
[2025-07-24] MEDS: MAGNESIUM OXIDE 400 MG PO (08:29)
[2025-07-24] MEDS: PACERONE 200 MG PO (08:29)
[2025-07-24] MEDS: HIPREX 1 GRAM PO (08:31)
[2025-07-24] MEDS: VITAMIN B-12 1000 MCG PO (08:31)
[2025-07-24] MEDS: ALDACTONE 12.5 MG PO (08:31)
[2025-07-24] MEDS: VISBIOME 1 CAP PO (08:31)
[2025-07-24] MEDS: ELIQUIS 2.5 MG PO (08:31)
[2025-07-24] MEDS: SENOKOT 8.6 MG PO (08:31)
[2025-07-24] MEDS: PROTONIX 40 MG PO (08:31)
[2025-07-24] MEDS: ZOSTRIX-HP 0.075% CREAM TOPICAL ×2 (08:32→12:35)
[2025-07-24] MEDS: LASIX 60 MG IV (08:32)
--- NOTE | 2025-07-24 08:55 | W.PN.HOSP.TC ---
Today's Communication/Plan
-
d/c
Assessment / Plan
Assessment / Plan
Gen: NAD, Awake and alert
Eyes: EOMI, PERRLA, no scleral icterus.
Neck: supple.
CV: RRR, +S1/S2, 3/6 MYNOR
Resp: CTAB anteriorly, no rales, wheezes, or rhonchi.
Abd: +BS, soft, NT, ND
Skin: No rashes. No LE edema
Neuro: CN 2-12 intact, non-focal.
Psych: Normal mood and affect.
Echo 05/23:
1. Normal left ventricular size and mildly reduced LV function. Ejection fraction is 40-45% by visual assesment.
2. Mild global hypokinesis.
3. Right ventricular size and systolic function are within normal limits.
4. Indexed left atrial volume is moderately abnormal (42-48 ml/m2).
5. Mildly dilated right atrium.
6. Severe aortic valve stenosis. Aortic valve area = 0.66 cm².
7. Mild mitral valve stenosis. mild mitral valve regurgitation.
8. Mild tricuspid regurgitation. Estimated pulmonary artery pressure of 45 mmHg assuming a right atrial pressure of 3 mmHg.
9. Compared to a prior transthoracic echocardiogram study from 09/08/24 There is little significant change.
Acute on Chronic HFmrEF:
-echo done 04/2025 with LVEF = 40-45% and severe
-with severe
-has been on IV Lasix
-daily wts, I/Os
-cards saw in c/s
-GDMT limited by hypotension, not a candidate for SGLT2 due to recurrent UTIs
-Patient has declined cardiac intervention such as cardiac cath and evaluation for aortic stenosis as well. Palliative care consulted (they said no need to see again) and hospice. Has been discussed with family prior.
-acute hypoxic respiratory insufficiency due to CHF, was on 2L NC O2, now 98% RA
Abdominal pain:
-likely related to hiatal hernia and constipation but cannot rule out other intra-abdominal pathology
-Prior provider discussed doing a CT A/P but patient and family declined. Does not complain of abd pain today.
-cont PPI, simethicone PRN
h/o recurrent UTI:
-was on Rocephin (received 3 days Rocephin), now on PO Bactrim
-afebrile, no leukocytosis
-Dr. Barber's d/c summary from 07/19 reviewed and, at that time, pt was discharged on 3 days Bactrim
-stop Bactrim, resume WAITER/WAITRESS COUNTER suppressive methenamine
Other problems:
Constipation:
Anemia of chronic disease: Hb stable
Orthostatic hypotension, monitor
Chronic Hyponatremia: cont FR of 1200cc/day
CAD
Elevated trop due to nonischemic myocardial injury
Paroxysmal Atrial Fibrillation: cont Amio/Eliquis
DM2: cont Lantus/SSI/accuchecks
RLS: cont Requip
Anxiety/Depression: cont Xanax PRN
GERD: cont PPI
DNR/Eliquis
Remains medically cleared for discharge since 07/23/25.
Total time spent on d/c = 31 min. This included today's physical exam, progress note, review of laboratory and diagnostic data, preparation of discharge documents and prescriptions, and discussions about the pt's hospital course and discharge plan
with the patient and other medical doctor involved in the patient's care.
Anticipated Discharge: Today
Subjective/Interval History
-
Date of Service: July 24, 2025
No new complaints.
Objective Data
-
Vital Signs:
Vital Signs
Temp Pulse Resp BP Pulse Ox
97.7 F 64 16 111/58 100
07/24/25 07:35 07/24/25 08:29 07/24/25 07:35 07/24/25 08:29 07/24/25 07:35
I&O
07/23/25 07/24/25 07/25/25
06:59 06:59 06:59
Intake Total 720 / 720 720 / 720
Output Total 2550 / 2550 1700 / 1700
Balance -1830 / -1830 -980 / -980
--- NOTE | 2025-07-24 09:16 | CM ---
CM called [employer] to initiate auth, spoke w/ [employer]. Reviewed clinical information.
Auth approved beginning 07/24 NRD 07/30
Auth ref # [id number]
COVID ordered
Per daughter yesterday, can transport patient herself to [facility]
Updated [facility] admissions w/ auth information
IMM verbally reviewed, copy provided, copy on chart
[facility]
Report: [phone]

Plan: D/c to [facility] today
[2025-07-24 09:50] VITALS: BP 115/72; PULSE 68; O2SAT 98
[2025-07-24 09:51] LABS: COVID-19 Antigen Negative (Negative)
[2025-07-24 11:00] VITALS: BP 134/65
[2025-07-24 11:43] LABS: Glucose - Point of Care 261 mg/dl (70-99)
[2025-07-24] MEDS: NOVOLOG FLEXPEN-LOW RESISTANCE 3 UNITS SC (12:35)
[2025-07-24 13:28] LABS: Blood Urea Nitrogen 23 mg/dl (7-17); Calcium 8.9 mg/dl (8.4-10.2); Carbon Dioxide 32 mmol/L (22-30); Chloride 95 mmol/L (98-107); Estimated Creatinine Clearance 38 ml/min; Glucose 165 mg/dl (70-99); Potassium 3.5 mmol/L (3.5-5.1); Sodium 134 mmol/L (135-145); eGFR > 60.00
[2025-07-24] MEDS: XANAX 0.25 MG PO (13:54)
[2025-07-24] MEDS: TYLENOL 650 MG PO (13:55)
--- NOTE | 2025-07-24 14:18 | W.DCSUMMARY ---
Discharge Summary
Discharge Data
Date of Admission: 07/20/25
Date of Discharge: 07/24/25
-
Pending Results: No
Hospital Course
Primary diagnoses:
Secondary diagnoses:
Constipation
Anemia of chronic disease
Orthostatic hypotension
Chronic Hyponatremia
Coronary artery disease
Elevated trop due to nonischemic myocardial injury
Paroxysmal Atrial Fibrillation
Type 2 diabetes mellitus
Restless leg syndrome
Anxiety
Depression
Gastroesophageal reflux disease
Consultants:
Cardiology
Imaging:
Echo 05/23:
1. Normal left ventricular size and mildly reduced LV function. Ejection fraction is 40-45% by visual assesment.
2. Mild global hypokinesis.
3. Right ventricular size and systolic function are within normal limits.
4. Indexed left atrial volume is moderately abnormal (42-48 ml/m2).
5. Mildly dilated right atrium.
6. Severe aortic valve stenosis. Aortic valve area = 0.66 cm².
7. Mild mitral valve stenosis. mild mitral valve regurgitation.
8. Mild tricuspid regurgitation. Estimated pulmonary artery pressure of 45 mmHg assuming a right atrial pressure of 3 mmHg.
9. Compared to a prior transthoracic echocardiogram study from 09/08/24 There is little significant change.
89-year-old female who presented with chief complaint of shortness of breath as outlined in the H&P done on admission. Hospital course by problem list:
Acute on Chronic HFmrEF: The patient also had severe aortic stenosis. Echo done 04/2025 with LVEF = 40-45% and severe . Patient was diuresed with IV Lasix. She was seen in consultation by cardiology. Her symptoms improved and her acute hypoxemic
respiratory insufficiency due to CHF resolved. GDMT limited by hypotension, not a candidate for SGLT2 due to recurrent UTIs. The patient has declined cardiac intervention such as cardiac cath and evaluation for aortic valve replacement as well.
While hospitalized the patient and patient's family did not change goals of care. Risk of readmission within 30 days is 100%.
Abdominal pain: This was likely related to hiatal hernia and constipation. Checking a CT A/P was discussed with the patient and family but patient and family declined. Abdominal pain resolved.
h/o recurrent UTI: The patient received 3 days of Rocephin. She was afebrile and had no leukocytosis. I personally reviewed Dr. Barber's d/c summary from 07/19 and, at that time, pt was discharged on 3 days Bactrim. The patient's suppressive
methenamine was restarted.
Discharge Plan
-
Patient Disposition: Longterm/SNF
Discharge Diagnosis/Procedures: Acute on chronic heart failure with mildly reduced ejection fraction
Condition: Fair
Diet: Diabetic, Carb Controlled and Other diet
Additional Diets: Fluid restrict to 1200 cc/day
Activity: With assistance
Driving Restrictions: No driving
Blood Work: BMP, magnesium, CBC in 1 week, prescription from PCP
Specialty Instructions: Weigh Daily- Call MD for wt gain/loss 3 lbs overnight/5 lbs in 1 week
Instructions: *[facility] Heart Failure Instructions
Referrals:
Radha Oro CRNP [Specified Professional Personl, Cardiology] - 08/17/25 2:00 pm
Referral Note: Your cardiology follow-up appointment has changed to 08/17/25, appt 07/26 has been cancelled. Appointment remains at the [facility]. Please call with questions
Nuzhat Zhu DO [Family Provider, Family Practice] - in less than 1 week
Prescriptions:
New
midodrine 5 mg Tablet
5 mg PO TID PRN (Reason: for SBP < 85 or MAP < 60) Qty: 0 0RF
alprazolam 0.5 mg Tablet
0.25 mg PO BIDPRN PRN (Reason: Anxiety) Qty: 4 0RF
Lactobac/Bifidobac [Visbiome]
1 cap PO DAILY Qty: 0 0RF
spironolactone [Aldactone] 25 mg tablet
12.5 mg PO DAILY Qty: 1 0RF
Continued
PreserVision AREDS 1 CAP capsule
1 cap PO BID
ropinirole 0.5 mg Tablet
0.5 mg PO HS
cyanocobalamin (vitamin B-12) 1,000 mcg Tablet
1,000 mcg PO DAILY
ascorbic acid (vitamin C) [Vitamin C] 500 mg Tablet
500 mg PO DAILY
cholecalciferol (vitamin D3) [Vitamin D3] 25 mcg (1,000 unit) Tablet
25 mcg PO DAILY
melatonin 5 mg Tablet
5 mg PO HS
lidocaine 4 % adhesive patch,medicated
1 patch topical HS
polyethylene glycol 3350 [Miralax] 17 gram Powder In Packet
17 g PO DAILY
amiodarone 200 mg tablet
200 mg PO DAILY
capsaicin [Arthritis Pain Relief(capsaic)] 0.075 % cream
1 applic topical QID
pantoprazole 40 mg tablet,delayed release (DR/EC)
40 mg PO DAILY
Eliquis 2.5 mg tablet
2.5 mg PO BID
acetaminophen 325 MG tablet
650 mg PO Q6HPRN PRN (Reason: pain) Qty: 0 0RF
ipratropium-albuterol 0.5 mg-3 mg(2.5 mg base)/3 mL Solution For Nebulization
3 ml inhalation R Q4HPRN PRN (Reason: Shortness of breath/wheeze) Qty: 90 0RF
metformin 500 mg tablet
500 mg PO DAILY
senna 8.6 mg capsule
8.6 mg PO BID Qty: 20 0RF
methenamine hippurate 1 gram Tablet
1 g PO BID
magnesium hydroxide [Milk of Magnesia] 400 mg/5 mL Suspension
2,400 mg PO Q52SYSC PRN (Reason: constipation)
bisacodyl [Dulcolax (bisacodyl)] 10 mg Suppository
10 mg GA DAILYPRN PRN (Reason: if no bm aftr mom)
Fleet Enema 19-7 gram/118 mL Enema
118 ml GA DAILYPRN PRN (Reason: if no bm aftr dulcolax)
Saccharomyces boulardii [Florastor] 250 mg Capsule
250 mg PO DAILY
magnesium oxide 400 mg magnesium Tablet
400 mg PO BID
zinc oxide 20 % Paste
1 ea TOPICAL BID
Changed
furosemide [Lasix] 40 mg tablet
80 mg PO DAILY Qty: 30 0RF
Discontinued
sulfamethoxazole-trimethoprim [Bactrim DS] 800-160 mg tablet
1 tab PO BID 3 Days Qty: 6 0RF
Rx Instructions:
for 3 days until 07/22/25
alprazolam [Xanax] 0.5 mg Tablet
0.5 mg PO [id number] PRN (Reason: anxiety)
Discharge Orders:
Discharge Patient (As Directed); Ordered 07/24/25
Ordered By: Greyson Sarkar
Discharge Date and Time
Print Language: GREENLANDIC
--- NOTE | 2025-07-24 16:50 | W.PN.CARDCBS ---
Today's Communication / Plan
-
Okay for discharge
Impression / Plan
-
.
Primary Utility Porter: Dr. Funes
Impression:
Presented 07/14/25 shortness of breath, weight gain, fatigue, and orthopnea, discharged 07/19/2025 after diuresing at least 5 pounds but re-presented from [facility] 07/20/2025, with shortness of breath
Acute on chronic heart failure mildly reduced EF, proBNP >17492 07/20, was 25,500 last admit 07/14/25
Severe aortic stenosis
Hyponatremia
UTI
Elevated troponin, peak 0.045
Paroxysmal atrial fibrillation
CM EF 40-45% Apr 2024
Abnormal stress test, patient has declined cardiac catheterization on multiple occasions as OP
h/o multiple ischemic strokes which have been felt likely to represent small vessel disease and atherosclerosis
Autonomic dysfunction/hypotension/orthostasis treated with midodrine as needed
Carotid stenosis, right s/p stent
Hypercholesterolemia
Type 2 diabetes with diabetic neuropathy
History of seizure disorder
Breast Ca with Radiation Therapy s/p Left Mastectomy
GERD/Hiatal Hernia
RLS
UTIs
Iron Deficiency
Congenital malformation of esophagus
Gait difficulty
Dysphagia
Former smoker
DNR
PSH: Hysterectomy /History of bowel resection/ Back surgery
Echo 05/15/2024: EF 40 to 45%, global hypokinesis, stage II diastolic dysfunction, MAC, mild MR, mild to moderate with peak/mean gradients 27/18 mmHg, KAYLEIGH 1.4 cm�, trace AR
ECHO 05/25/2024: EF 40 to 45%, apex, inferolateral, inferior and anterior perez are hypokinetic, appears stable compared to prior.
Echo 09/08/2024: EF 40-45%, inferior, inferolateral, anterior, and apical hypokinesis. Mild MS, MAC, mild MR, moderate to severe (57/32 mmHg), mild to moderate TR, mild pulmonary hypertension PASP 43 mmHg
Echo 05/23/2025: LVEF 40 to 45%, normal RV size and function, severe , KAYLEIGH 0.6 cm�, peak and mean AV gradients of 46 and 27 mmHg, mild MS, mild MR, mild TR, PAP 45 mmHg
Plan:
Overall stable for discharge
We will arrange for cardiac follow-up.
HPI: 89-year-old female well-known to our service recently discharged from the hospital June 16, 2025 with acute on chronic heart failure with mildly reduced ejection fraction and severe aortic stenosis returns with more shortness of breath,
weight gain, fatigue, and orthopnea. The patient lives at home with her daughter. She has had increased fatigue and symptoms for the past 3 to 4 days. She denies any lower extremity edema but does have abdominal fullness. Her baseline weight is
around 133 her weight today was up to 140 pounds. She denies any dietary indiscretion. She has no chest pains. She has no palpitations or syncope. She has no bleeding or falls. Her energy is slowly declining and feeding. She is DNR. She has
declined cardiac cath and evaluation for her aortic stenosis in the past.
Progress Note - Utility Porter
Subjective
Date of Service: July 24, 2025:
89-year-old woman with acute on chronic heart failure and mildly reduced EF in the setting of severe aortic stenosis. Not interested in TAVR, currently a DNR. Previously on hospice.
PMH: PAF, heart failure with mildly reduced EF, severe aortic stenosis, hyponatremia, history of multiple CVAs, autonomic dysfunction, diabetes, seizures, breast cancer with history of radiation and mastectomy to the left, GERD, right carotid stent,
hypercholesterolemia, RLS
Patient feels well, anxious to go home
Discharge meds: Reviewed
134/65, pulse 67, respiratory, sats 100., Intake and output -1.57 L, weight is 56.9 kg, largely unchanged, frail, elderly, lungs are clear, murmur, Regular rate and rhythm abdomen benign, no edema
Sodium 134, potassium 3.5, creatinine 23 and 0.9, spironolactone just added
Objective
Labs:
07/23/25 08:28
07/24/25 12:44
Labs
Hgb 10.7 g/dL (12.0-16.0) L 07/23/25 08:28
Hct 33.6 % (37.0-47.0) L 07/23/25 08:28
Plt Count 209 10^3/uL (130-400) 07/23/25 08:28
Sodium 134 mmol/L (135-145) L 07/24/25 12:44
Potassium 3.5 mmol/L (3.5-5.1) 07/24/25 12:44
BUN 23 mg/dl (7-17) H 07/24/25 12:44
Creatinine 0.9 mg/dL (0.6-1.0) 07/24/25 12:44
Glucose 165 mg/dl (70-99) H 07/24/25 12:44
Vital Signs and I&O:
Vital Signs
Temp Pulse Resp BP Pulse Ox
36.4 C 67 16 134/65 100
07/24/25 11:00 07/24/25 11:00 07/24/25 11:00 07/24/25 11:00 07/24/25 11:00
Vital Signs
Temp Pulse Resp BP Pulse Ox
36.4 C 67 16 134/65 100
07/24/25 11:00 07/24/25 11:00 07/24/25 11:00 07/24/25 11:00 07/24/25 11:00
Intake & Output
07/22/25 07/23/25 07/24/25 07/25/25
07:59 07:59 07:59 07:59
Intake Total 780 / 780 720 / 720 720 / 720 420 / 420
Output Total 1150 / 1150 2550 / 2550 1700 / 1700 750 / 750
Balance -370 / -370 -1830 / -1830 -980 / -980 -330 / -330
Physical Exam
Physical Exam
See above
--- NOTE | 2025-07-25 09:44 | W.HF.CON ---
Heart Failure
- LV Function
Left ventricular function study result: LV Ejection fraction 41-49%
Ejection Fraction Percentage: 40-45
- ARNI
Patient already on ARNI: No
Heart Failure ARNI Contraindication: Hypotension, Mod/Severe Aortic Stenosis
- ACEI/ARB
Patient already on ACEI/ARB: No
Heart Failure ACEI/ARB Contraindication: Hypotension, Mod/Severe Aortic Stenosis
- Beta Mary
Patient already on Evidence Based Beta Mary: No
Heart Failure Evidence Based Beta Mary: Hypotension
- Mineralocorticord Receptor Antagonist
Patient already on MRA: Yes
- SGLT-2 Inhibitor
Patient already on SGLT-2 Inhibitor: No
Heart Failure SGLT-2 Inhibitor Contraindication: Patient Refusal
- Afib Anticoagulation
Patient already on Anticoagulation for Afib: Yes
- NYHA CHF Classification
NYHA CHF Classification Level: Class III - Symptoms w/ min exertion, interferes w/ nml daily activity
- ACC/AHA Stage
ACC/AHA Stage: Stage D: Advanced Heart Failure
== END 2025-07-24 15:16 | DRG 306 ==
LOC: 4 EAST ACU 06:59
PROVIDERS: Hospitalist; Internal Medicine Cardiovascular Disease; ADMITTING PHYSICIAN Internal Medicine; ATTENDING PHYSICIAN Internal Medicine; EMERGENCY PHYSICIAN Student in an Organized Health Care Education/Training Program; FAMILY PHYSICIAN Family Medicine
DX: I35.0 Nonrheumatic aortic (valve) stenosis (principal); I50.23 Acute on chronic systolic (congestive) heart failure; J96.01 Acute respiratory failure with hypoxia; I31.39 Other pericardial effusion (noninflammatory); E87.1 Hypo-osmolality and hyponatremia; I5A Non-ischemic myocardial injury (non-traumatic); Q39.9 Congenital malformation of esophagus, unspecified; I25.5 Ischemic cardiomyopathy; Z66 Do not resuscitate; I11.0 Hypertensive heart disease with heart failure; I95.1 Orthostatic hypotension; I48.0 Paroxysmal atrial fibrillation; Z79.84 Long term (current) use of oral hypoglycemic drugs; E11.9 Type 2 diabetes mellitus without complications; G25.81 Restless legs syndrome; F41.9 Anxiety disorder, unspecified; F32.A Depression, unspecified; K21.9 Gastro-esophageal reflux disease without esophagitis; Z11.52 Encounter for screening for COVID-19; Z79.01 Long term (current) use of anticoagulants; Z79.4 Long term (current) use of insulin; Z87.440 Personal history of urinary (tract) infections
CPT/HCPCS: 71046; 80048; 80053; 82962; 83036; 83735; 83880; 84484; 85025; 85027; 87811; 93005; 97116; 97162; 97166; 99285

== ENCOUNTER → 2025-09-18 11:16 | Outpatient (REF) | payer OTHER, SELFPAY ==
[2025-09-18 13:35] LABS: Blood Urea Nitrogen 24 mg/dl (7-17); Calcium 8.8 mg/dl (8.4-10.2); Carbon Dioxide 22 mmol/L (22-30); Chloride 105 mmol/L (98-107); Glucose 142 mg/dl (70-99); Potassium 4.7 mmol/L (3.5-5.1); Sodium 134 mmol/L (135-145); eGFR 48.03
== END ==
LOC: OLABPATH 11:16
PROVIDERS: ATTENDING PHYSICIAN Internal Medicine
DX: I50.9 Heart failure, unspecified (principal)
CPT/HCPCS: 36415; 80048

== ENCOUNTER → 2025-09-26 09:56 | Outpatient (REF) | payer OTHER, SELFPAY ==
[2025-09-26 11:50] LABS: Blood Urea Nitrogen 27 mg/dl (7-17); Calcium 8.8 mg/dl (8.4-10.2); Carbon Dioxide 23 mmol/L (22-30); Chloride 100 mmol/L (98-107); Glucose 170 mg/dl (70-99); Potassium 4.8 mmol/L (3.5-5.1); Sodium 132 mmol/L (135-145); eGFR 53.85
== END ==
LOC: OLABPATH 09:56
PROVIDERS: ATTENDING PHYSICIAN Internal Medicine
DX: F41.9 Anxiety disorder, unspecified (principal); J96.91 Respiratory failure, unspecified with hypoxia; E08.610 Diabetes mellitus due to underlying condition with diabetic neuropathic arthropathy
CPT/HCPCS: 36415; 80048